=== PATIENT | male | born 1955 | race African-American/Black ===

== ENCOUNTER 2019-01-16 15:19 | Emergency (ER) | payer MEDICARE, MEDICAID ==
[~2019-01-16] VITALS: Ht 182.9 cm; Wt 90.7 kg
--- NOTE | 2019-01-16 15:36 | PHYS DOC ---
Adult General Chief Complaint Chief Complaint: HYPERTENSION HPI HPI Patient is a 63 year old male presents for evaluation of hypertension that was noted today at [facility]. Patient has psychiatric history. It was reported from the shelter but today his blood pressure was in the 200s systolically, they gave him 10 mg of lisinopril and rechecked the blood pressure and it was found to be in the 170s systolic and they sent him to the emergency room for evaluation. He has no previous history of hypertension. Patient has no complaints. States he is feeling well and has no pain. Upon arrival to the emergency room patient's blood pressure is 134/80. He denies any dizziness, headache, chest pain, or shortness of breath. Review of Systems Review of Systems Constitutional: Denies fever or chills [] Eyes: Denies change in visual acuity, redness, or eye pain [] HENT: Denies nasal congestion or sore throat [] Respiratory: Denies cough or shortness of breath [] Cardiovascular: No additional information not addressed in HPI [] GI: Denies abdominal pain, nausea, vomiting, bloody stools or diarrhea [] : Denies dysuria or hematuria [] Musculoskeletal: Denies back pain or joint pain [] Integument: Denies rash or skin lesions [] Neurologic: Denies headache, focal weakness or sensory changes [] Endocrine: Denies polyuria or polydipsia [] All other systems were reviewed and found to be within normal limits, except as documented in this note. Allergies Allergies Allergies Coded Allergies Type Severity Reaction Last Updated Verified No Known Drug Allergies 01/16/19 No Physical Exam Physical Exam Constitutional: Well developed, well nourished, no acute distress, non-toxic appearance. [] HENT: Normocephalic, atraumatic, bilateral external ears normal, oropharynx moist, no oral exudates, nose normal. [] Eyes: PERRLA, EOMI, conjunctiva normal, no discharge. [] Cardiovascular:Heart rate regular rhythm, no murmur [] Lungs & Thorax: Bilateral breath sounds clear to auscultation [] Skin: Warm, dry, no erythema, no rash. [] Extremities: No tenderness, no cyanosis, no clubbing, ROM intact, no edema. [] Neurologic: Alert and oriented X 3, normal motor function, normal sensory function, no focal deficits noted. [] Psychologic: Affect normal, judgement normal, mood normal. [] Current Patient Data Vital Signs Vital Signs Date Time Temp Pulse Resp B/P (MAP) Pulse Ox O2 Delivery O2 Flow Rate FiO2 01/16/19 17:05 82 17 100 01/16/19 15:19 98.3 134/94 (107) Room Air 98.3 EKG EKG [EKG at 1525, read by emergency room physician, heart rate 85, interpretation sinus rhythm, no STEMI] Radiology/Procedures Radiology/Procedures [] Course & Med Decision Making Course & Med Decision Making Pertinent Labs and Imaging studies reviewed. (See chart for details) [Vital signs stable, pressure 133/78 as reported by EMS in route, blood pressure remains 130s to 140s in emergency room, should asymptomatic, he is started on lisinopril already by the shelter where he lives, no further treatment is indicated today in emergency room. Patient has no complaints, he is stable for discharge home.] Dragon Disclaimer Dragon Disclaimer This electronic medical record was generated, in whole or in part, using a voice recognition dictation system. Departure Departure Impression: Primary Impression: Hypertension Disposition: 01 HOME, SELF-CARE Condition: STABLE Patient Instructions: Hypertension ARACELY REGALADO APRN Jan 16, 2019 15:36
--- NOTE | 2019-01-16 16:08 | EKG ---
[facility] [address] [place] [address] Test Date: 2019-01-16 Test Time: 15:25:43 Pat Name: EDMUND WAGONER Department: Room: Gender: M [employer]st: : 1955 Requested By: ARACELY REGALADO Order Number: [id number] Reading MD: Measurements Intervals [place] Rate: 84 P: 51 NH: 164 QRS: 50 QRSD: 76 T: 77 QT: 304 QTc: 361 Interpretive Statements SINUS RHYTHM NON SPECIFIC T ABNORMALITY NON SPECIFIC ST-T ABNORMALITY (ELEVATION) BORDERLINE ECG No previous ECG available for comparison
[2019-01-16 17:05] VITALS: BP 146/83
== END 2019-01-16 18:30 | disposition home or self-care (01) ==
LOC: ER 15:19
DX: I10 Essential (primary) hypertension (principal)
CPT/HCPCS: 93005; 99283

== ENCOUNTER 2020-07-22 15:50 | Emergency (ER) | payer MEDICARE, MEDICAID ==
[~2020-07-22] VITALS: Ht 185.4 cm; Wt 86.4 kg
--- NOTE | 2020-07-22 16:58 | ED.ADGEN ---
Past Medical History Past Medical History: Anxiety, Schizophrenia, Other Additional Past Medical Histor: ALCOHOL DEPENDENCE. Past Surgical History: No Surgical History Smoking Status: Never Smoker Alcohol Use: Sober Drug Use: None General Adult EDM: Chief Complaint: MECHANICAL FALL HPI: HPI: Patient is 64-year-old male with past medical history of schizophrenia who presents to the emergency room after being found laying partially out of bed. Patient is typically bedbound. He was found with his head on the floor. They also noticed some bruising to his ribs. They sent him here with request for imaging of his head and ribs. Patient is altered at baseline and is unable to provide any kind of history. He has no complaints. Review of Systems: Review of Systems: Complete ROS is negative unless otherwise documented in HPI Allergies: Allergies: Allergies Coded Allergies Type Severity Reaction Last Updated Verified No Known Drug Allergies 01/16/19 No Physical Exam: PE: General: Awake, alert, NAD. Well Nourished, well hydrated. Cooperative HEENT: Atraumatic, EOMI, PERRL, airway patent, moist oral mucosa Neck: Supple, trachea midline Respiratory: CTA bilaterally, normal effort, no wheezing/crackles CV: RRR, no murmur, cap refill <2 GI: Soft, nondistended, nontender, no masses MSK: No obvious deformities Skin: Warm, dry, intact Neuro: A&O x0, speech NL, sensory and motor grossly intact, no focal deficits Current Patient Data: Vital Signs: Vital Signs Date Time Temp Pulse Resp B/P (MAP) Pulse Ox O2 Delivery O2 Flow Rate FiO2 07/22/20 15:55 97.2 91 115/79 (91) 98 Room Air 97.2 EKG: EKG: [] Heart Score: Risk Factors: Risk Factors: DM, Current or recent (<one month) smoker, HTN, HLP, family history of CAD, obesity. Risk Scores: Score 0 - 3: 2.5% MACE over next 6 weeks - Discharge Home Score 4 - 6: 20.3% MACE over next 6 weeks - Admit for Clinical Observation Score 7 - 10: 72.7% MACE over next 6 weeks - Early Invasive Strategies Radiology/Procedures: Radiology/Procedures: [] Course & Med Decision Making: Course & Med Decision Making Pertinent Labs and Imaging studies reviewed. (See chart for details) Patient is 64-year-old male who presents to the emergency room after a possible fall out of bed. CT head, cervical spine, ribs will be ordered to evaluate for traumatic injury as patient is unable to provide us any history. CT negative for acute traumatic injury. CT chest does show possible pneumonia and patient was started on Levaquin. He does not appear to be septic at this time. Patient's test results and vitals while in the ED were fully reviewed and discussed with the patient. Patient is stable and at this time does not need admission to the hospital. We have discussed strict return precautions and the importance of following up with their Primary Care Physician. Patient stated understanding and was given an opportunity to ask any questions. Patient is in agreement with plan. Dragon Disclaimer: Dragon Disclaimer: This electronic medical record was generated, in whole or in part, using a voice recognition dictation system. Departure Departure Impression: Primary Impression: Fall Additional Impression: Pneumonia Disposition: 01 DC HOME SELF CARE/HOMELESS Condition: STABLE Referrals: LISA CASTAÑEDA MD (PCP) Patient Instructions: Fall Prevention in Hospitals, Pneumonia, Adult Scripts Levofloxacin (LEVOFLOXACIN) 500 Mg Tablet 1 TAB PO DAILY, #7 TAB Prov: CHANEL LUGO MD 07/22/20 Problem Qualifiers CHANEL LUGO MD Jul 22, 2020 16:58
--- NOTE | 2020-07-22 17:05 | RAD ---
EXAM: Head hand cervical spine CT without contrast. HISTORY: Fall. TECHNIQUE: Computed tomographic images of the head and cervical spine were obtained without contrast. *One or more of the following individualized dose reduction techniques were utilized for this examina tion: 1. Automated exposure control. 2. Adjustment of the mA and/or kV according to patient size. 3. Use of iterative reconstruction technique. COMPARISON: None. FINDINGS: Head: There is no hemorrhage. There is no mass effect or midline shift. There is no hydrocephalus. Th ere is cerebral volume loss. There are areas of hypodensity within the cerebral white matter due to c hronic small vessel disease. There is a small chronic infarct within the left basal ganglia. There is no calvarial lesion. The visualized orbits, paranasal sinuses mastoid air cells are unremarkable. Cervical spine: There is cervical kyphosis. There is minimal anterolisthesis of C3 on C4. There is se zbigniew degenerative endplate remodeling with disc space narrowing and osteophytosis at multiple levels. There are are multiple endplate Schmorl's nodes. There is multilevel facet arthropathy. No displaced fracture is seen. At C2-C3, there is a disc bulge and endplate remodeling. There is severe right and mild left facet ar thropathy. There is moderate right and mild left foraminal stenosis. At C3-C4, there is a disc bulge and endplate osteophytosis. There is mild bilateral facet arthropathy . There is left greater than right uncovertebral arthropathy. There is mild right and severe left for aminal stenosis. At C4-C5, there is a disc bulge and endplate osteophytosis. There is mild right and moderate left fac et arthropathy. There is left uncovertebral arthropathy. There is severe left foraminal stenosis. The re is mild central canal stenosis. At C5-C6, there is a disc bulge and endplate osteophytosis. There is moderate left facet arthropathy. There is bilateral uncovertebral arthropathy. There is moderate bilateral foraminal stenosis. There is mild central canal stenosis. At C6-C7, there is a disc bulge and endplate osteophytosis. There is left greater than right uncovert ebral arthropathy. There is moderate left foraminal stenosis. There is mild central canal stenosis. IMPRESSION: 1. No evidence of acute intracranial or cervical spine trauma. 2. Multilevel degenerative change throughout the cervical spine, resulting in significant stenosis at the aforementioned levels. 3. Bilateral cerebral white matter changes, likely due to chronic small vessel disease. 4. Cerebral volume loss. 5. Suspected small chronic infarct within the left basal ganglia. Electronically signed by: Myra Farley MD (07/22/2020 5:03 PM) [facility]
--- NOTE | 2020-07-22 17:06 | RAD ---
Exam: CT of chest without contrast INDICATION: Fall, closed head injury, chest wall pain TECHNIQUE: Sequential axial images through the chest obtained without IV contrast. Sagittal and coron al reformatted images were reconstructed from the axial data and reviewed. Comparisons: None FINDINGS: Visualized portions of the thyroid are unremarkable. No enlarged mediastinal lymph nodes are identifi ed. Heart size is normal. No pericardial effusion. Thoracic aorta has normal course and caliber. Pulmonar y artery is not enlarged. Airways are patent. There is consolidative changes at the left lower lobe with strandy opacities at t he right lung base. There is a small left pleural effusion. No suspicious osseous lesions or acute fractures. IMPRESSION: 1. No sequela of acute traumatic injury identified within the chest. 2. Consolidative changes noted in the left lower lobe, may be infectious or inflammatory in etiology . Exposure: One or more of the following in the visualized dose reduction techniques were utilized for this examination: 1. Automated exposure control 2. Adjustment of the MA and/or KV according to patient size 3. Use of iterative of reconstructive technique Electronically signed by: Bmial De Souza MD (07/22/2020 5:04 PM) [facility]
[2020-07-22] MEDS ORDERED: LEVO500T8 PO (17:17)
[2020-07-22 21:00] VITALS: BP 115/76
== END 2020-07-22 21:25 | disposition home or self-care (01) ==
LOC: ER 15:50
DX: S30.1XXA Contusion of abdominal wall, initial encounter (principal); J18.9 Pneumonia, unspecified organism; F41.9 Anxiety disorder, unspecified; F20.9 Schizophrenia, unspecified; F10.10 Alcohol abuse, uncomplicated; W18.39XA Other fall on same level, initial encounter; Y93.89 Activity, other specified; Y92.89 Other specified places as the place of occurrence of the external cause; Y99.8 Other external cause status
CPT/HCPCS: 70450; 71250; 72125; 99285

== ENCOUNTER 2020-07-29 13:22 | Inpatient (IN) | payer MEDICARE, MEDICAID ==
[~2020-07-29] VITALS: Ht 190.5 cm; Wt 91.5 kg
[~2020-07-29 13:22] MED LIST: LEVO500T8 PO
--- NOTE | 2020-07-29 13:39 | RAD ---
EXAM: Head CT without contrast. HISTORY: Cerebral infarction. TECHNIQUE: Computed tomographic images of the head were obtained without contrast. *One or more of the following individualized dose reduction techniques were utilized for this examina tion: 1. Automated exposure control. 2. Adjustment of the mA and/or kV according to patient size. 3. Use of iterative reconstruction technique. COMPARISON: None. FINDINGS: There is no acute or subacute extra-axial or intraparenchymal hemorrhage. There is no mass effect or midline shift. There is no hydrocephalus. There are areas of decreased attenuation within the cerebral white matter, nonspecific and likely rel ated to chronic small vessel disease. There is cerebral volume loss. There is a suspected small chron ic lacunar infarct within the left basal ganglia. The visualized portions of the orbits, paranasal sinuses and mastoid air cells are unremarkable. No s uspicious calvarial lesion is seen. IMPRESSION: 1. No acute intracranial finding. Note is made that MRI is more sensitive for acute infarction. 2. Bilateral cerebral white matter changes, likely due to chronic small vessel disease. 3. Suspected small chronic infarct within the left basal ganglia. 4. Cerebral volume loss. Findings were discussed with Dr. Vivas in the ED at 1330 hours on 07/29/2020 FOR INTERNAL CODING PURPOSES RESULT CODE: (C) Electronically signed by: Myra Farley MD (07/29/2020 1:35 PM) [id number]
[2020-07-29] MEDS ORDERED: IOHEXOL 300 MG/ML 100ML VIAL. IV ONE (13:45)
[2020-07-29] MEDS ORDERED: IV NORMAL SALINE 1000ML BAG 1,000 ML IV ONE ×4 (13:45→16:15)
[2020-07-29] MEDS ORDERED: CONTRAST GIVEN. MC PRN (13:45)
--- NOTE | 2020-07-29 13:52 | RAD ---
EXAM: Chest, single view. HISTORY: Cerebral infarction. COMPARISON: None. FINDINGS: A frontal view of the chest is obtained. There is no infiltrate, pleural effusion or pneumo thorax. The heart is normal in size. There are calcified granulomas. IMPRESSION: No acute pulmonary finding. Electronically signed by: Myra Farley MD (07/29/2020 1:49 PM) [id number]
--- NOTE | 2020-07-29 14:08 | PHYS DOC ---
Past Medical History Past Medical History: Anxiety, Schizophrenia, Other Additional Past Medical Histor: ALCOHOL DEPENDENCE. Past Surgical History: No Surgical History Smoking Status: Never Smoker Alcohol Use: Sober Drug Use: None General Adult EDM: Chief Complaint: SYNCOPE/PRESYNCOPE HPI: HPI: This is a pleasant 64-year-old male presenting to the emergency department today initially was activated as a stroke activation. EMS was called to the scene because the patient suddenly lost consciousness and became "unresponsive". On EMS arrival the patient had a low blood pressure and became more arousable after giving IV fluids. On arrival the patient went straight to head CT as a stroke activation. He has been being treated for pneumonia with Levaquin. He has not had any slurred speech. There were no focal deficits on EMS examination. On arrival the patient does not have any focal neurologic deficits. Onset today. Last known well was 12:40 PM. Review of systems is negative for chest pain shortness of breath abdominal pain vomiting fevers. He has not had any facial drooping unilateral arm or leg weakness. He has not had diplopia. He has not feeling vertiginous. All other review of systems negative. ED course: 64-year-old male presenting to the emergency department today initially as a stroke activation. On arrival however the patient's neurologic exam shows good strength in both upper extremities and equal strength in his lower extremities although both lower extremities do drift bilaterally. Initially on arrival we had very significant discrepancy in the patient's blood pressures between right and left greater than 80 mmHg. Because of this we were concerned for dissection. Furthermore the patient did not have a focal neurologic deficit. I spoke with Dr. Cruz our consulting stroke neurologist who recommends not giving TPA. We did discuss the possibility of pursuing an urgent MRI however the more the patient's condition became clear it became more clear that the patient was not stable enough to go to MRI because of his hypotension a nd concern for septic shock. Head CT obtained showed no acute intracranial findings. Patient has a chronic infarct in the left basal ganglia. CT angiogram shows some atherosclerotic plaquing less than 50% stenosis without severe stenosis or large vessel occlusion. There is a small left pleural effusion with an left lower lobe pneumonia. Chest x-ray shows pneumonia. After more information was available he became more probable that the patient's presentation was septic shock from pneumonia. Patient was given IV fluids on arrival and started on broad-spectrum antibiotics. I spoke with the patient and got verbal consent to do a central line. Central line performed. Chest x-ray shows line in place without pneumothorax. Norepinephrine IV fluids and broad- spectrum antibiotics initiated for the patient. As the patient was treated in the emergency department his mental status improved substantially he was more alert he continues not to have a focal neurologic deficit. We will admit the patient to the hospitalist into the intensive care unit for further treatment and care. Lactic acid was elevated. White blood cell count elevated. Troponin within normal limits. Heart Score: Risk Factors: Risk Factors: DM, Current or recent (<one month) smoker, HTN, HLP, family history of CAD, obesity. Risk Scores: Score 0 - 3: 2.5% MACE over next 6 weeks - Discharge Home Score 4 - 6: 20.3% MACE over next 6 weeks - Admit for Clinical Observation Score 7 - 10: 72.7% MACE over next 6 weeks - Early Invasive Strategies Current Medications: Current Medications Medications (Trade) Dose Ordered Sig/Jeffrey Start Time Stop Time Status Last Admin Dose Admin Info (CONTRAST GIVEN -- Rx MONITORING) 1 each PRN DAILY PRN 07/29/20 13:45 07/31/20 13:44 Iohexol (Omnipaque 300 Mg/ml) 75 ml 1X ONCE 07/29/20 13:45 07/29/20 13:46 DC Sodium Chloride 1,000 ml @ 1,000 mls/hr 1X ONCE 07/29/20 13:45 07/29/20 14:44 Allergies: Allergies: Allergies Coded Allergies Type Severity Reaction Last Updated Verified No Known Drug Allergies 01/16/19 No Physical Exam: PE: Constitutional: Patient opens eyes to voice. Not in acute distress. Normal work of breathing. HENT: Normocephalic, atraumatic, bilateral external ears normal, oropharynx moist, no oral exudates, nose normal. [] Eyes: PERRLA, EOMI, conjunctiva normal, no discharge. [] Neck: Normal range of motion, no tenderness, supple, no stridor. [] Cardiovascular: Tachycardic heart rate with a regular rhythm. No murmur. Lungs & Thorax: Rhonchi on the left. Right lung sounds are clear. Abdomen: Bowel sounds normal, soft, no tenderness, no masses, no pulsatile masses. [] Skin: Warm, dry, no erythema, no rash. [] Back: No tenderness, no CVA tenderness. [] Extremities: No tenderness, no cyanosis, no clubbing, ROM intact, no edema. [] Neurologic: Mental status: Awake confused and alert x3. Speech is not slurred. Cranial nerves: Extraocular movements intact, eyebrows susan bilaterally, smile symmetric, uvula elevation nl, shoulder shrug intact bilaterally, tongue protrusion normal Sensation: equal and normal in all extremities Strength: 5/5 in upper extremities bilaterally. 4 out of 5 strength in the lower extremities bilaterally with equal drift. Normal [id number] test bilaterally. Psychologic: Affect normal, judgement normal, mood normal. [] EKG: EKG: [] Radiology/Procedures: Radiology/Procedures: [] Course & Med Decision Making: Course & Med Decision Making Pertinent Labs and Imaging studies reviewed. (See chart for details) 64-year-old stroke activation. Head CT unremarkable. Neurologic exam: Patient is able to lift both upper extremities without drift. He is able to lift both legs off the bed. Both legs do drift. Pupils are equal round and reactive. Cranial nerve exam is unremarkable. Normal sensation bilaterally in all 4 extremities. I spoke to Dr. Cruz our stroke neurologist on-call. Given the lack of focality in addition with the patient's blood pressure being significantly different in both extremities, 170 sys in the right arm and then 85 systolic on the left. There was concern for possible dissection. Given the possibility of there being a dissection and a lack of focality of the patient's neurologic function Dr. Crowley felt the patient symptoms to be more global and possibly related to the patient's blood pressure. He asked that we get an MRI. He recommended not giving TPA. The time is now 2:08 PM. After further clarification and the patient's blood pressure staying low and concern for septic shock I felt the patient was not clinically stable to go to MRI at the time. Patient was treated for septic shock in the emergency department rather. We will admit to the ICU. MRI will have to take place tomorrow. Gifty Disclaimer: Gifty Disclaimer: This electronic medical record was generated, in whole or in part, using a voice recognition dictation system. Departure Departure Impression: Primary Impression: Septic shock Additional Impression: Pneumonia Disposition: ADMITTED INPT THIS HOSP Admitting Physician: CLEMENT Condition: CRITICAL Referrals: LISA CASTAÑEDA MD (PCP) Central Line Placement Proc Central Line Indication: Vascular access Consent: The patient provided consent for this procedure. Procedure: The patient was positioned appropriately and the skin over the right IJ was prepped and draped in a sterile fashion. Local anesthesia was used. Ultrasound guidance utilized. A large bore needle was used to identify the vein. A guide wire was then inserted into the vein through the needle. A triple lumen catheter was then inserted into the vessel over the guide wire using the Seldinger technique. All ports showed good, free flowing blood return and were flushed with saline solution. The catheter was then securely fastened to the skin with sutures and covered with a sterile dressing. A post procedure X-ray was ordered. without any signs of complications. The patient tolerated the procedure well. Complications: none. Critical Care Time Critical care time spent was 55 minutes exclusive of procedures. Time was spent evaluating the patient, ordering the administration of medications, reevaluating the patient, discussing with the admitting provider and documenting. FELIX RODRIGUEZ MD Jul 29, 2020 14:08
[2020-07-29 14:12] LABS: CALCIUM 9.1 mg/dL (8.5-10.1); GFR 40.9; POTASSIUM 3.8 mmol/L (3.5-5.1)
[2020-07-29] MEDS ORDERED: NOREPINEPHRINE VIAL 8 MG in IV DEXTROSE 5% 250 ML IV ONE (14:15)
[2020-07-29] MEDS ORDERED: PIP/TAZO PER PHARMACY MC PRN (14:30)
[2020-07-29] MEDS ORDERED: PIPERACILLIN/TAZOBACTAM 3.375 GM in IV NORMAL SALINE 50ML 50 ML IV ONE (14:30)
--- NOTE | 2020-07-29 14:32 | RAD ---
ADDENDUM #1 Addendum: This report is linked to a CT of the chest, abdomen and pelvis performed on the same date. The CT findings for the the chest, abdomen and pelvis will be included on this addendum. EXAM: Chest, abdomen and pelvis CT with intravenous contrast. HISTORY: Left-sided weakness. TECHNIQUE: Computed tomographic images of the chest, abdomen and pelvis were obtained with a previous contrast. *One or more of the following individualized dose reduction techniques were utilized for this examina tion: 1. Automated exposure control. 2. Adjustment of the mA and/or kV according to patient size. 3. Use of iterative reconstruction technique. FINDINGS: Chest: There are small left greater than right pleural effusions. There is partially consol idated left lower lobe pneumonia and there is right lower lobe interstitial infiltrate. The heart is normal in size. There is no pneumothorax. The aorta is normal in caliber. There are prominent mediast inal and hilar lymph nodes which are likely reactive. There are few calcified granulomas. There is a tiny hiatal hernia. There is gynecomastia. There is no acute or suspicious osseous finding. Abdomen and pelvis: No hepatic lesion is seen. The gallbladder, pancreas, spleen and adrenal glands a re unremarkable. There is a 2.8 cm simple cyst within the upper pole the left kidney. The urinary estrella dder is distended. There is no appendicitis. There is a large amount of formed stool throughout the c olon and rectal vault. The aorta is normal in caliber. There is no lymphadenopathy. There is no suspi cious or acute osseous finding. There is degenerative change primarily the lumbosacral junction. IMPRESSION: 1. Partially consolidated left lower lobe pneumonia and right lower lobe interstitial infiltrate supe rimposed on small left greater the right pleural effusions. 2. Mediastinal and hilar lymphadenopathy, likely reactive given the aforementioned findings. 3. Large amount of stool throughout the colon and rectal vault. Correlate for constipation. 4. Simple left renal cyst. Follow up is not routinely recommended for simple cysts. 5. Tiny hiatal hernia. 6. Distended urinary bladder. Electronically signed by: Myra Farley MD (07/29/2020 5:34 PM) [id number] ORIGINAL REPORT EXAM: CT angiogram of the head and neck with intravenous contrast. HISTORY: Left-sided weakness. Stroke. TECHNIQUE: Computed tomographic images of the head and neck were obtained following the intravenous a dministration of contrast. Three-dimensional maximum intensity projection images were obtained. *One or more of the following individualized dose reduction techniques were utilized for this examina tion: 1. Automated exposure control. 2. Adjustment of the mA and/or kV according to patient size. 3. Use of iterative reconstruction technique. COMPARISON: Head CT obtained on the same date. FINDINGS: There is a normal caliber aortic arch. No aortic dissection is seen. There is a common orig in of the right innominate and left common carotid arteries, a normal aortic arch branching variant. The origins of the arch great vessels are widely patent. There is intimal thickening involving the bi lateral common carotid arteries. There is partially calcified atherosclerotic plaque involving the ca rotid bulbs and origins of the internal carotid arteries, with less than 50 percent stenosis. There i s also partially calcified atherosclerotic plaque involving the supraclinoid internal carotid arterie s, with less than 50 percent percent stenosis. No hemodynamically significant stenosis is seen involv ing the cerebral arteries. The left posterior communicating arteries likely developmental or absent. The basilar artery is widely patent. The distal left vertebral artery is hypoplastic, a normal varian t. There is no aneurysm. There is no suspicious enhancing lesion. There is cerebral volume loss. There are cerebral white matter changes, likely due to chronic small v essel disease. The orbits, paranasal sinuses and mastoid air cells are unremarkable. There is no lymp hadenopathy. There is a small left pleural effusion. There is partial visualization of left lower lob e pneumonia. There is no pneumothorax. There are degenerative changes throughout the cervical spine. This is associated with mild right foraminal stenosis at C2-C3, severe left foraminal stenosis at C3- C4, severe left foraminal stenosis at C4-C5, moderate left foraminal stenosis at C5-C6, and mild to m oderate left foraminal stenosis at C6-C7. IMPRESSION: 1. Mild atherosclerotic plaque involving the carotid bifurcations and supraclinoid internal carotid a rteries, with less than 50 percent stenosis. No severe stenosis or occlusion is seen involving the ne ck or intracranial arteries. 2. Bilateral cerebral white matter changes, likely due to chronic. Note is made that MRI is more sens itive for acute infarction. 3. Small left pleural effusion and left lower lobe pneumonia, partially included on the [id number] . 4. Multilevel degenerative change involving the cervical spine, resulting in stenosis as described ab ove. PQRS Compliance Statement - Stenosis calculations for CT, MR and conventional angiography are based u galilea measurement of the distal ICA diameter in accordance with the NASCET methodology. Stenosis calcu lations for carotid ultrasound studies are derived from validated velocity criteria which are known t o correlate with the NASCET methodology. Electronically signed by: Myra Farley MD (07/29/2020 2:28 PM) [id number]
[2020-07-29 14:45] LABS: BASO # 0.1 x10^3/uL (0.0-0.2); BASO % 0 % (0-3); EOS % 0 % (0-3); HEMATOCRIT 27.6 % (39.0-53.0); HEMOGLOBIN 8.9 g/dL (13.0-17.5); LYMPH # 2.1 x10^3/uL (1.0-4.8); LYMPH % 12 % (24-48); MEAN CORPUSCULAR HEMOGLOBIN 29 pg (25-35); MEAN CORPUSCULAR HGB CONC 32 g/dL (31-37); MEAN CORPUSCULAR VOLUME 90 fL (79-100); MONO # 0.8 x10^3/uL (0.0-1.1); MONO % 5 % (0-9); NEUT # 14.2 x10^3/uL (1.8-7.7); NEUT % 83 % (31-73); PLATELET COUNT 171 x10^3/uL (140-400); RED BLOOD COUNT 3.07 x10^6/uL (4.30-5.70); RED CELL DISTRIBUTION WIDTH 15.2 % (11.5-14.5); WHITE BLOOD COUNT 17.1 x10^3/uL (4.0-11.0)
[2020-07-29] MEDS ORDERED: VANCOMYCIN PER PHARMACY MC PRN ×2 (15:00→18:45)
[2020-07-29] MEDS ORDERED: 0.9 % SOD CHL for STERILE FIELD 10 ML DISP.SYRIN. ONE (15:08)
--- NOTE | 2020-07-29 15:29 | EKG ---
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
[2020-07-29] MEDS ORDERED: VANCOMYCIN 2 GM in IV NORMAL SALINE 500ML BAG 500 ML IV ONE (15:30)
--- NOTE | 2020-07-29 16:34 | RAD ---
EXAM: Chest, single view. HISTORY: Central line placement. COMPARISON: CT dated 07/29/2020. FINDINGS: A frontal view of the chest obtained. There is small left greater than right pleural effusi ons and there is left greater than right lower lobe interstitial infiltrate. There is an enlarged car diac silhouette. There is a right internal jugular catheter with the tip in the superior vena cava. T here is no pneumothorax. There are calcified granulomas. There are prominent air-filled loops of david l within the upper abdomen. IMPRESSION: 1. Small left greater than right pleural effusions with left greater than right lower lobe infiltrate . 2. Prominent cardiac silhouette. 3. Right internal jugular catheter with the tip in the superior vena cava. There is no pneumothorax. Electronically signed by: Myra Farley MD (07/29/2020 4:20 PM) [id number]
[2020-07-29] MEDS ORDERED: IV NORMAL SALINE 1000ML BAG 1,000 ML IV SCH (16:45)
--- NOTE | 2020-07-29 16:46 | PDOC1 ---
History and Physical Date of Admission Date of Admission DATE: 07/29/20 TIME: 16:46 Identification/Chief Complaint Chief Complaint Unresponsive Source Source: Caregiver, Chart review History of Present Illness History of Present Illness Mr Gustafson is a 64yo M w/ PMHx schizophrenia, h/o heavy ETOH abuse, depression with anxiety, HTN, constipation who presents from his [facility] for unresponsiveness. EMS was contacted as the patient was found unresponsive and shaking 20 minutes prior to their call. He believes its August 2049 does know his name and birthdate. Due to his lack of appropriate response and tremors a code stroke was called and he underwent CT head and CT neck which were negative for acute pathology. Suspected chronic left basal ganglia infarct was noted. CTA negative for occlusion. Notably with temperature 95.1 F rectal. BP 74/47 heart rate 154. In ED he was not responsive to 2 fluid boluses, was started on empiric antibiotics and right IJ CVC was placed for pressor support. After his blood pressure improved he became more responsive and was moving all 4 extremities able to carry on a conversation and follow commands. He complains of weakness and tremors he cannot stop. He notes no loss of appetite no abdominal complaints. He does no chills no fevers. Some slight shortness of breath. No chest pain. He does have problems with urinary retention notes he is trying to urinate when he is unable to. He notes he is relatively bedbound Chest radiograph with no acute abnormality. EKG rate in the 140s possibly SVT, patient is on Levophed at time of EKG. WBC 17.1, Hb 8.9, platelets 171, NA 136, K3.8, BUN 20, CR 2, glucose 161, INR 1.1, lactic acid 5.6, troponin 0 Admitted to ICU for further care. Past Medical History Cardiovascular: HTN CENTRAL NERVOUS SYSTEM: TIA Psych: Addictions (ETOH), Schizophrenia Past Surgical History Past Surgical History: No pertinent history Family History Family History: Family History Unknown Social History Smoke: <1 pack per day ALCOHOL: heavy Drugs: None Current Medications Current Medications Current Medications Iohexol (Omnipaque 300 Mg/ml) 75 ml 1X ONCE IV Last administered on 07/29/20at 14:08; Start 07/29/20 at 13:45; Stop 07/29/20 at 13:46; Status DC Info (CONTRAST GIVEN -- Rx MONITORING) 1 each PRN DAILY PRN MC SEE COMMENTS; Start 07/29/20 at 13:45; Stop 07/31/20 at 13:44 Sodium Chloride 1,000 ml @ 1,000 mls/hr 1X ONCE IV Last administered on 07/29/20at 13:53; Start 07/29/20 at 13:45; Stop 07/29/20 at 14:44; Status DC Norepinephrine Bitartrate 8 mg/ Dextrose 258 ml @ 15.48 mls/ hr 1X ONCE IV Last administered on 07/29/20at 14:31; Start 07/29/20 at 14:15; Stop 07/30/20 at 06:54 Piperacillin Sod/ Tazobactam Sod (Zosyn Per Pharmacy) 1 each PRN DAILY PRN MC SEE COMMENTS; Start 07/29/20 at 14:30; Status UNV Piperacillin Sod/ Tazobactam Sod 3.375 gm/Sodium Chloride 50 ml @ 100 mls/hr 1X ONCE IV Last administered on 07/29/20at 14:39; Start 07/29/20 at 14:30; Stop 07/29/20 at 14:59; Status DC Vancomycin HCl (Vanco Per Pharmacy) 1 each PRN DAILY PRN MC SEE COMMENTS; Start 07/29/20 at 15:00; Status UNV Sodium Chloride 1,000 ml @ 1,000 mls/hr 1X ONCE IV Last administered on 07/29/20at 15:06; Start 07/29/20 at 15:00; Stop 07/29/20 at 15:59; Status DC Sodium Chloride 1,000 ml @ 1,000 mls/hr 1X ONCE IV ; Start 07/29/20 at 15:00; Stop 07/29/20 at 15:59; Status DC Sodium Chloride (NORMAL SALINE FLUSH for STERILE FIELD) 10 ml STK-MED ONCE .ROUTE ; Start 07/29/20 at 15:08; Stop 07/29/20 at 15:08; Status DC Vancomycin HCl 2 gm/Sodium Chloride 500 ml @ 250 mls/hr 1X ONCE IV Last administered on 07/29/20at 16:03; Start 07/29/20 at 15:30; Stop 07/29/20 at 17:29 Sodium Chloride 1,000 ml @ 1,000 mls/hr 1X ONCE IV ; Start 07/29/20 at 16:15; Stop 07/29/20 at 17:14 Sodium Chloride 1,000 ml @ 100 mls/hr Q10H IV ; Start 07/29/20 at 16:45; Stop 07/29/20 at 20:44 Active Scripts Active Levofloxacin 500 Mg Tablet 1 Tab PO DAILY Allergies Allergies: Coded Allergies: No Known Drug Allergies (Unverified , 01/16/19) ROS General: YES: Chills, Fatigue, Malaise; No: Night Sweats, Appetite, Other PSYCHOLOGICAL ROS: YES: Anxiety, Disorientation; No: Behavioral Disorder, Concentration difficultie, Decreased libido, Depression, Hallucinations, Hostility, Irritablity, Memory difficulties, Mood Swings, Obsessive thoughts, Physical abuse, Sexual abuse, Sleep disturbances, Suicidal ideation, Other Eyes: No Blurry vision, No Decreased vision, No Double vision, No Dry eyes, No Excessive tearing, No Eye Pain, No Itchy Eyes, No Loss of vision, No Photophobia, No Scotomata, No Uses contacts, No Uses glasses, No Other HEENT: No: Heacaches, Visual Changes, Hearing change, Nasal congestion, Nasal discharge, Oral lesions, Sinus pain, Sore Throat, Epistaxis, Sneezing, Snoring, Tinnitus, Vertigo, Vocal changes, Other ALLERGY AND IMMUNOLOGY: No: Hives, Insect Bite Sensitivity, Itchy/Watery Eyes, Nasal Congestion, Post Nasal Drip, Seasonal Allergies, Other Hematological and Lymphatic: No: Bleeding Problems, Blood Clots, Blood Transfusions, Brusing, Night Sweats, Pallor, Swollen Lymph Nodes, Other ENDOCRINE: No: Breast Changes, Galactorrhea, Hair Pattern Changes, Hot Flashes, Malaise/lethargy, Mood Swings, Palpitations, Polydipsia/polyuria, Skin Changes, Temperature Intolerance, Unexpected Weight Changes, Other Breast: No New/Changing Breast Lumps, No Nipple changes, No Nipple discharge, No Other Respiratory: No: Cough, Hemoptysis, Orthopnea, Pleuritic Pain, Shortness of breath, SOB with excertion, Sputum Changes, Stridor, Tachypnea, Wheezing, Other Cardiovascular: No Chest Pain, No Palpitations, No Orthopnea, No Paroxysmal Noc. Dyspnea, No Edema, No Lt Headedness, No Other Gastrointestinal: No Nausea, No Vomiting, No Abdominal Pain, No Diarrhea, No Constipation, No Melena, No Hematochezia, No Other Genitourinary: No Dysuria, No Frequency, No Incontinence, No Hematuria, No Retention, No Discharge, No Urgency, No Pain, No Flank Pain, No Other, No , No , No , No , No , No , No Musculoskeletal: No Gait Disturbance, No Joint Pain, No Joint Stiffness, No Joint Swelling, No Muscle Pain, No Muscular Weakness, No Pain In:, No Swelling In:, No Other Neurological: No Behavorial Changes, No Bowel/Bladder ControlChng, No Confusion, No Dizziness, No Gait Disturbance, No Headaches, No Impaired Coord/balance, No Memory Loss, No Numbness/Tingling, No Seizures, No Speech Pr oblems, No Tremors, No Visual Changes, No Weakness, No Other Skin: No Dry Skin, No Eczema, No Hair Changes, No Lumps, No Mole Changes, No Mottling, No Nail Changes, No Pruritus, No Rash, No Skin Lesion Changes, No Other, No Acne Physical Exam General: Alert, Cooperative, moderate distress HEENT: Atraumatic, PERRLA, EOMI, Mucous membr. moist/pink Lungs: Clear to auscultation, Normal air movement Heart: S1S2, RRR, no thrills, no rubs, no gallops, no murmurs Abdomen: Normal bowel sounds, Soft, No tenderness, No hepatosplenomegaly, No masses Rectal Exam: other (large 4x8 gluteal ulcer) Extremities: No clubbing, No cyanosis, No edema, Normal pulses, No tenderness/swelling Skin: Other (Gluteal ulcer) Neuro: Normal tone, Sensation intact, Cranial nerves 3-12 NL, Reflexes 2+, Other (4/5 strength bilateral LE) Psych/Mental Status: Other (Confused) Vitals Vitals Vital Signs Date Time Temp Pulse Resp B/P (MAP) Pulse Ox O2 Delivery O2 Flow Rate FiO2 07/29/20 14:29 138 88/54 (65) 100 Room Air 07/29/20 14:24 4.0 07/29/20 13:25 95.1 95.1 Labs Labs Laboratory Tests Test 07/29/20 13:49 07/29/20 14:10 07/29/20 14:20 Prothrombin Time 14.0 SEC (11.7-14.0) Prothromb Time International Ratio 1.1 (0.8-1.1) Activated Partial Thromboplast Time 27 SEC (24-38) Sodium Level 136 mmol/L (136-145) Potassium Level 3.8 mmol/L (3.5-5.1) Chloride Level 99 mmol/L (98-107) Carbon Dioxide Level 25 mmol/L (21-32) Anion Gap 12 (6-14) Blood Urea Nitrogen 20 mg/dL (8-26) Creatinine 2.0 mg/dL (0.7-1.3) Estimated GFR (Cockcroft-Gault) 40.9 Glucose Level 161 mg/dL (70-99) Calcium Level 9.1 mg/dL (8.5-10.1) Troponin I Quantitative < 0.017 ng/mL (0.000-0.055) Lactic Acid Level 5.6 mmol/L (0.4-2.0) White Blood Count 17.1 x10^3/uL (4.0-11.0) Red Blood Count 3.07 x10^6/uL (4.30-5.70) Hemoglobin 8.9 g/dL (13.0-17.5) Hematocrit 27.6 % (39.0-53.0) Mean Corpuscular Volume 90 fL (79-100) Mean Corpuscular Hemoglobin 29 pg (25-35) Mean Corpuscular Hemoglobin Concent 32 g/dL (31-37) Red Cell Distribution Width 15.2 % (11.5-14.5) Platelet Count 171 x10^3/uL (140-400) Neutrophils (%) (Auto) 83 % (31-73) Lymphocytes (%) (Auto) 12 % (24-48) Monocytes (%) (Auto) 5 % (0-9) Eosinophils (%) (Auto) 0 % (0-3) Basophils (%) (Auto) 0 % (0-3) Neutrophils # (Auto) 14.2 x10^3/uL (1.8-7.7) Lymphocytes # (Auto) 2.1 x10^3/uL (1.0-4.8) Monocytes # (Auto) 0.8 x10^3/uL (0.0-1.1) Eosinophils # (Auto) 0.0 x10^3/uL (0.0-0.7) Basophils # (Auto) 0.1 x10^3/uL (0.0-0.2) Laboratory Tests Test 07/29/20 13:49 07/29/20 14:10 07/29/20 14:20 Prothrombin Time 14.0 SEC (11.7-14.0) Prothromb Time International Ratio 1.1 (0.8-1.1) Activated Partial Thromboplast Time 27 SEC (24-38) Sodium Level 136 mmol/L (136-145) Potassium Level 3.8 mmol/L (3.5-5.1) Chloride Level 99 mmol/L (98-107) Carbon Dioxide Level 25 mmol/L (21-32) Anion Gap 12 (6-14) Blood Urea Nitrogen 20 mg/dL (8-26) Creatinine 2.0 mg/dL (0.7-1.3) Estimated GFR (Cockcroft-Gault) 40.9 Glucose Level 161 mg/dL (70-99) Calcium Level 9.1 mg/dL (8.5-10.1) Troponin I Quantitative < 0.017 ng/mL (0.000-0.055) Lactic Acid Level 5.6 mmol/L (0.4-2.0) White Blood Count 17.1 x10^3/uL (4.0-11.0) Red Blood Count 3.07 x10^6/uL (4.30-5.70) Hemoglobin 8.9 g/dL (13.0-17.5) Hematocrit 27.6 % (39.0-53.0) Mean Corpuscular Volume 90 fL (79-100) Mean Corpuscular Hemoglobin 29 pg (25-35) Mean Corpuscular Hemoglobin Concent 32 g/dL (31-37) Red Cell Distribution Width 15.2 % (11.5-14.5) Platelet Count 171 x10^3/uL (140-400) Neutrophils (%) (Auto) 83 % (31-73) Lymphocytes (%) (Auto) 12 % (24-48) Monocytes (%) (Auto) 5 % (0-9) Eosinophils (%) (Auto) 0 % (0-3) Basophils (%) (Auto) 0 % (0-3) Neutrophils # (Auto) 14.2 x10^3/uL (1.8-7.7) Lymphocytes # (Auto) 2.1 x10^3/uL (1.0-4.8) Monocytes # (Auto) 0.8 x10^3/uL (0.0-1.1) Eosinophils # (Auto) 0.0 x10^3/uL (0.0-0.7) Basophils # (Auto) 0.1 x10^3/uL (0.0-0.2) Images Images Chest radiograph: A frontal view of the chest is obtained. There is no infiltrate, pleural effusion or pneumothorax. The heart is normal in size. There are calcified granulomas. IMPRESSION: No acute pulmonary finding. CT head w/o contrast: There is no acute or subacute extra-axial or intraparenchymal hemorrhage. There is no mass effect or midline shift. There is no hydrocephalus. There are areas of decreased attenuation within the cerebral white matter, nonspecific and likely related to chronic small vessel disease. There is cerebral volume loss. There is a suspected small chronic lacunar infarct within the left basal ganglia. The visualized portions of the orbits, paranasal sinuses and mastoid air cells are unremarkable. No suspicious calvarial lesion is seen. IMPRESSION: 1. No acute intracranial finding. Note is made that MRI is more sensitive for acute infarction. 2. Bilateral cerebral white matter changes, likely due to chronic small vessel disease. 3. Suspected small chronic infarct within the left basal ganglia. 4. Cerebral volume loss. Head and neck CTA: There is a normal caliber aortic arch. No aortic dissection is seen. There is a common origin of the right innominate and left common carotid arteries, a normal aortic arch branching variant. The origins of the arch great vessels are widely patent. There is intimal thickening involving the bilateral common carotid arteries. There is partially calcified atherosclerotic plaque involving the carotid bulbs and origins of the internal carotid arteries, with less than 50 percent stenosis. There is also partially calcified atherosclerotic plaque involving the supraclinoid internal carotid arteries, with less than 50 percent percent stenosis. No hemodynamically significant stenosis is seen involving the cerebral arteries. The left posterior communicating arteries likely developmental or absent. The basilar artery is widely patent. The distal left vertebral artery is hypoplastic, a normal variant. There is no aneurysm. There is no suspicious enhancing lesion. There is cerebral volume loss. There are cerebral white matter changes, likely due to chronic small vessel disease. The orbits, paranasal sinuses and mastoid air cells are unremarkable. There is no lymphadenopathy. There is a small left pleural effusion. There is partial visualization of left lower lobe pneumonia. There is no pneumothorax. There are degenerative changes throughout the cervical spine. This is associated with mild right foraminal stenosis at C2-C3, severe left foraminal stenosis at C3-C4, severe left foraminal stenosis at C4-C5, moderate left foraminal stenosis at C5-C6, and mild to moderate left foraminal stenosis at C6-C7. IMPRESSION: 1. Mild atherosclerotic plaque involving the carotid bifurcations and supraclinoid internal carotid arteries, with less than 50 percent stenosis. No severe stenosis or occlusion is seen involving the neck or intracranial arteries. 2. Bilateral cerebral white matter changes, likely due to chronic. Note is made that MRI is more sensitive for acute infarction. 3. Small left pleural effusion and left lower lobe pneumonia, partially included on the [id number]. 4. Multilevel degenerative change involving the cervical spine, resulting in stenosis as described above. VTE Prophylaxis Ordered VTE Prophylaxis Devices: No VTE Pharmacological Prophylaxi: Yes Assessment/Plan Assessment/Plan A/P: Septic shock - likely from gluteal ulcer vs pneumonia vs possible COVID 19. Given empiric antibiotics, fluids. RIJ CVC for pressors after failure of appropriate IVF resuscitation Gluteal ulcer - appears unstageable. Patient notably mostly bedbound with possible prior CVA on his CT head. Wound care, frequent turning q2hrs and IV antibiotics DENIS - vasomotor nephropathy from septic shock, will monitor renal function Acute encephalopathy - likely from septic shock, less likely CVA. Neurology recommended MRI, however no focal deficits found. Recommended against tPA Anemia - will check for iron, b12 Lactic acidosis - due to sepsis, will trend. Abnormal CT head - likely chronic basal ganglia infarct on left Small left pleural effusion and left lower lobe pneumonia - likely gram negative, will cont zosyn Schizophrenia - on haldol, depakote, and seroquel, will reduce dosing slightly given his EPS symptoms Shaking - likely EPS, will schedule benztropine BID and prn benadryl for breakthrough dystonia and akathisia (shaking) H/O ETOH abuse - in remission now in [facility] skilled psych placement HTN - hold meds for septic shock Constipation - will keep on bowel regimen. Given proximity of gluteal ulcer may need rectal tube if he begins to have BM FEN - regular diet PPX - heparin FULL CODE Dispo - ICU for septic shock likely from above CC domo 47 minutes Justifications for Admission Other Justification DANICA PHAM MD Jul 29, 2020 16:46
--- NOTE | 2020-07-29 17:02 | NUR ---
Pharmacy Vancomycin Dosing Note S:Consulted to monitor and dose vancomycin started 07/29/20. O:EDMUND WAGONER is a 64 year old M with Sepsis Height: 6 feet, 1 inches Weight: 88.0 kg [place] Body Weight: 79.90 Adjusted Body Weight: 83.14 Dosing Weight: Actual Other Antibiotics: ZOSYN LABS: Last BUN: 20 Last Creatinine: 2 Creatinine Clearance: 44 mL/min Last WBC: 17.1 Last Procalcitonin: Tmax (past 24 hours): 95.1 Microbiology: I/O: Drug Levels: Last level: on at Last dose given 07/29/20 at 1603 Vancomycin Dosing: Loading Dose: 2000 mg x1 Dosing Weight: Actual Target Trough: 15-20 A: Based on: weight and renal funtion P: 1. Begin Vancomycin 1250 mg IV q24h 2. Follow up Trough level on 07/31/20 at 1530 3. Pharmacy will continue to monitor, follow and adjust therapy as needed. Radha Bowen RPH, 07/29/20 [id number]
[2020-07-29 17:30] LABS: % BANDS 11 % (0-9); % LYMPHS 15 % (24-48); % METAS 1 % (0-0); % MONOS 4 % (0-10); % MYELOS 1 % (0-0); % SEGS 68 % (35-66)
[2020-07-29 17:32] LABS: PLT ESTIMATE ADEQUATE (ADEQUATE); TOXIC GRANULATION MOD
[2020-07-29 17:38] LABS: POLYCHROMASIA SLIGHT
[2020-07-29 18:38] VITALS: BP 126/93
[2020-07-29] MEDS ORDERED: ALBUMIN HUMAN 5% 500 ML IV ONE (18:45)
[2020-07-29 20:45] VITALS: BP 113/63
[2020-07-29] MEDS ORDERED: DOCUSATE SODIUM 100 MG CAPSULE. PO PRN (20:45)
[2020-07-29] MEDS ORDERED: ACETAMINOPHEN 325 MG TABLET. PO PRN (20:45)
[2020-07-29] MEDS ORDERED: ONDANSETRON PF 4 MG/2 ML VIAL. IV PRN (20:45)
[2020-07-29 21:00] VITALS: BP 100/66
[2020-07-29] MEDS ORDERED: diphenhydrAMINE 50 MG/ML VIAL IVP PRN (21:00)
[2020-07-29] MEDS ORDERED: BENZTROPINE MESYLATE 2 MG/2 ML VIAL. IM PRN (21:00)
[2020-07-29] MEDS: HALOPERIDOL 2 MG TABLET. PO SCH (21:36)
[2020-07-29] MEDS: VALPROIC ACID 250 MG CAPSULE. PO SCH (21:36)
[2020-07-29] MEDS: QUEtiapine 100 MG TABLET. PO SCH (21:37)
[2020-07-29] MEDS: PIPERACILLIN/TAZOBACTAM 3.375 GM in IV NORMAL SALINE 50ML 50 ML IV SCH (21:38)
[2020-07-29] MEDS: PSYLLIUM HUSK (SUGAR FREE) 1 PKT PACKET PO SCH (21:38)
[2020-07-29] MEDS: HEPARIN for SUB-Q USE 5,000 UNIT/ML VIAL. SQ SCH (21:39)
[2020-07-29] MEDS: BENZTROPINE MESYLATE 2 MG/2 ML VIAL. IM SCH (21:40)
[2020-07-29 22:00] VITALS: BP 127/68
[2020-07-29 23:00] VITALS: BP 112/69
[2020-07-30] VITALS (27 sets, daily range): BP systolic 78–154; BP diastolic 48–99
--- NOTE | 2020-07-30 00:19 | NUR ---
B/P 78/49, pulse 86. Rechecked and B/P 87/48, Pulse 92. Drip adjusted per Jesika AYALA (charge nurse).
[2020-07-30] MEDS: PIPERACILLIN/TAZOBACTAM 3.375 GM in IV NORMAL SALINE 50ML 50 ML IV SCH ×4 (00:27→17:09)
--- NOTE | 2020-07-30 03:30 | NUR ---
Drip adjusted per Jesika AYALA.
--- NOTE | 2020-07-30 06:08 | NUR ---
Jesika RN(charge hand) placed drip on hold and Jesika RN is monitoring B/P and need for drip.
[2020-07-30] MEDS: HEPARIN for SUB-Q USE 5,000 UNIT/ML VIAL. SQ SCH ×3 (06:28→22:48)
--- NOTE | 2020-07-30 06:54 | PDOC ---
Infectious Disease Note Vital Sign Vital Signs Vital Signs Date Time Temp Pulse Resp B/P (MAP) Pulse Ox O2 Delivery O2 Flow Rate FiO2 07/30/20 06:05 76 16 113/77 (89) 100 Room Air 07/30/20 04:12 97.5 97.5 07/29/20 14:24 4.0 Labs Lab Laboratory Tests Test 07/29/20 13:49 07/29/20 14:10 07/29/20 14:20 07/29/20 18:00 Prothrombin Time 14.0 SEC (11.7-14.0) Prothromb Time International Ratio 1.1 (0.8-1.1) Activated Partial Thromboplast Time 27 SEC (24-38) Sodium Level 136 mmol/L (136-145) Potassium Level 3.8 mmol/L (3.5-5.1) Chloride Level 99 mmol/L (98-107) Carbon Dioxide Level 25 mmol/L (21-32) Anion Gap 12 (6-14) Blood Urea Nitrogen 20 mg/dL (8-26) Creatinine 2.0 mg/dL (0.7-1.3) Estimated GFR (Cockcroft-Gault) 40.9 Glucose Level 161 mg/dL (70-99) Calcium Level 9.1 mg/dL (8.5-10.1) Iron Level 68 ug/dL (65-175) Total Iron Binding Capacity 195 ug/dL (250-450) Iron Saturation 35 % (15-34) Troponin I Quantitative < 0.017 ng/mL (0.000-0.055) 25-Hydroxy Vitamin D Total 8.9 ng/mL (30-100) Thyroid Stimulating Hormone (TSH) 8.350 uIU/mL (0.358-3.74) Lactic Acid Level 5.6 mmol/L (0.4-2.0) 2.8 mmol/L (0.4-2.0) White Blood Count 17.1 x10^3/uL (4.0-11.0) Red Blood Count 3.07 x10^6/uL (4.30-5.70) Hemoglobin 8.9 g/dL (13.0-17.5) Hematocrit 27.6 % (39.0-53.0) Mean Corpuscular Volume 90 fL (79-100) Mean Corpuscular Hemoglobin 29 pg (25-35) Mean Corpuscular Hemoglobin Concent 32 g/dL (31-37) Red Cell Distribution Width 15.2 % (11.5-14.5) Platelet Count 171 x10^3/uL (140-400) Neutrophils (%) (Auto) 83 % (31-73) Lymphocytes (%) (Auto) 12 % (24-48) Monocytes (%) (Auto) 5 % (0-9) Eosinophils (%) (Auto) 0 % (0-3) Basophils (%) (Auto) 0 % (0-3) Neutrophils # (Auto) 14.2 x10^3/uL (1.8-7.7) Lymphocytes # (Auto) 2.1 x10^3/uL (1.0-4.8) Monocytes # (Auto) 0.8 x10^3/uL (0.0-1.1) Eosinophils # (Auto) 0.0 x10^3/uL (0.0-0.7) Basophils # (Auto) 0.1 x10^3/uL (0.0-0.2) Segmented Neutrophils % 68 % (35-66) Band Neutrophils % 11 % (0-9) Lymphocytes % 15 % (24-48) Monocytes % 4 % (0-10) Metamyelocytes % 1 % (0-0) Myelocytes % 1 % (0-0) Toxic Granulation Mod Platelet Estimate Adequate (ADEQUATE) Polychromasia Slight Objective Assessment Sepsis POA - off pressors now PNA Left > right DENIS Severe constipation Distended bladder - unable to place balderas Plan Plan of Care D/c Vanc with DENIS Cont Zosyn Add Zyvox F/u labs and cults/COVID Likely needs balderas but unable to place previously - if placed recommend UA C and S D/w nursing Reviewed [facility] records - no abx 35 mins Thank you # [id number] ANGELA BRIGHT MD Jul 30, 2020 06:54
[2020-07-30 07:08] LABS: ALBUMIN 2.2 g/dL (3.4-5.0); ALBUMIN/GLOBULIN RATIO 0.6 (1.0-1.7); CALCIUM 8.2 mg/dL (8.5-10.1); CREATININE 1.5 mg/dL (0.7-1.3); POTASSIUM 3.6 mmol/L (3.5-5.1); TOTAL BILIRUBIN 0.3 mg/dL (0.2-1.0); TOTAL PROTEIN 6.2 g/dL (6.4-8.2)
[2020-07-30 07:37] LABS: BASO # 0.1 x10^3/uL (0.0-0.2); BASO % 1 % (0-3); EOS # 0.1 x10^3/uL (0.0-0.7); EOS % 1 % (0-3); HEMATOCRIT 21.2 % (39.0-53.0); HEMOGLOBIN 7.1 g/dL (13.0-17.5); LYMPH # 1.5 x10^3/uL (1.0-4.8); LYMPH % 21 % (24-48); MEAN CORPUSCULAR HEMOGLOBIN 29 pg (25-35); MEAN CORPUSCULAR HGB CONC 33 g/dL (31-37); MEAN CORPUSCULAR VOLUME 88 fL (79-100); MONO # 0.4 x10^3/uL (0.0-1.1); MONO % 6 % (0-9); NEUT # 4.9 x10^3/uL (1.8-7.7); NEUT % 71 % (31-73); PLATELET COUNT 155 x10^3/uL (140-400); RED BLOOD COUNT 2.41 x10^6/uL (4.30-5.70); RED CELL DISTRIBUTION WIDTH 15.2 % (11.5-14.5); WHITE BLOOD COUNT 6.9 x10^3/uL (4.0-11.0)
[2020-07-30] MEDS: VALPROIC ACID 250 MG CAPSULE. PO SCH ×2 (07:50→20:34)
[2020-07-30] MEDS: CHOLECALCIFEROL (VITAMIN D3) 5,000 UNIT CAPSULE PO SCH (07:51)
[2020-07-30] MEDS: HALOPERIDOL 2 MG TABLET. PO SCH ×2 (07:51→20:34)
[2020-07-30] MEDS: BENZTROPINE MESYLATE 2 MG/2 ML VIAL. IM SCH ×2 (07:51→20:35)
--- NOTE | 2020-07-30 08:16 | CONS ---
DATE OF CONSULTATION: 07/30/2020 PATIENT'S ROOM: ICU 102. REQUESTING PHYSICIAN: Sharif Richardson MD REASON FOR CONSULTATION: Sepsis, pneumonia. HISTORY OF PRESENT ILLNESS: The patient is a 64-year-old gentleman who resides at [facility]. He was not on any antibiotics prior to his transfer to [facility]. He was brought to the Emergency Room on the afternoon of the secondary to presyncope as he suddenly lost consciousness, became unresponsive. On arrival, he had a creatinine of 2. White blood cell count was 17.1. Temperature was 95.1 rectally. Blood pressure dropped as low as 71/47. He underwent a chest x-ray, which showed small left greater than right pleural effusions, left greater than right lower lobe infiltrates. CT scan of the chest, abdomen and pelvis was also obtained, showed partially consolidated left lower lobe pneumonia, right lower lobe interstitial infiltrate, mediastinal and hilar lymphadenopathy, large amount of stool in the colon and rectal vault and had a distended bladder. CT scan of the head showed no acute changes. He was admitted to the Intensive Care Unit, placed on Levophed, vancomycin and Zosyn. Currently, the patient lying in bed. He is comfortable. He denies any fevers or chills or sweats. He has no headaches, no sinus issues, no sore throat, cough. No chest pain. He states he has not had any problems passing his bowels or his urine. No dysuria or frequency. He denies any falls and no rash or itch. PAST MEDICAL HISTORY: Positive for anxiety, schizophrenia, alcohol dependence, primary hypertension, constipation, TIA. REVIEW OF SYSTEMS: Otherwise negative except for mentioned above. ALLERGIES: No known drug allergies. SOCIAL HISTORY: He denies any history of smoking in the past. There is a note of previous heavy alcohol abuse and currently resides in [facility]. FAMILY HISTORY: Noncontributory. CURRENT MEDICATIONS: Include vancomycin, Zosyn, Levophed has been discontinued, Cogentin, Colace, heparin, Haldol, Seroquel, valproic acid. PHYSICAL EXAMINATION: VITAL SIGNS: T-max was 95.1 rectally on arrival, most recently 97.5 orally, pulse 76, respirations 16, blood pressure 113/77, satting 100% on room air. CONSTITUTIONAL: He is lying in bed. He is cooperative. He is in no acute distress. He is pleasant. HEENT: Pupils have some questionable early cataracts. He has normal conjunctivae. Oral cavity, pharynx has poor dentition. NECK: Supple, no JVD. He has a right IJ in place. LUNGS: Decreased at the bases. HEART: S1, S2, without murmur. ABDOMEN: Distended, no guarding, no rebound with some decreased, but positive bowel sounds. EXTREMITIES: Without clubbing, cyanosis. He has 2+ edema. SKIN: Warm to touch without generalized signs of rash. NEUROLOGIC: Nonfocal, answers questions, moves all extremities. PSYCHIATRIC: Affect was pleasant. LABORATORY DATA: White count 17.1, hemoglobin 8.9, platelets 171, neutrophils 83, segs 68, bands 11, lymphs 15. Creatinine was 2, glucose of 161. Radiology reviewed in history of present illness. He has no previous laboratory values here. IMPRESSION: 1. Sepsis present on admission, off pressors now. 2. Pneumonia, left greater than right. 3. Acute kidney injury. 4. Severe constipation. 5. Distended bladder, unable to place a Terrazas. RECOMMENDATIONS: Discontinue vancomycin with his acute kidney injury. We will continue Zosyn. We will add Zyvox. Follow up labs, cultures, COVID test, likely needs Terrazas, but unable to place previously. If placed, recommend UA, C and S. This was discussed with nursing. Reviewed [facility] notes, there are no antibiotics. No previous labs in this chart. Spent 35 minutes of critical care time. Thank you in the patient's care. If you have any questions, please do not hesitate to contact me. ANGELA BRIGHT MD DR: BRYON/rayray JOB#: [id number] / [id number] CHANTAL
--- NOTE | 2020-07-30 09:26 | NUR ---
Patient's bladder scanned per Dr. Kelly's request. Scan showed 778ml in bladder. Reported this to charger, Dianna. Dianna RN attempted a 14F balderas and was able to insert with urine feedback. UA sent per Dr. Kelly's note. Will continue to monitor.
[2020-07-30 09:41] LABS: BILIRUBIN,URINE NEGATIVE (NEG); CLARITY,URINE CLEAR; COLOR,URINE YELLOW; NITRITE,URINE NEGATIVE (NEG); PH,URINE 5.5 (<5.0-8.0); PROTEIN,URINE NEGATIVE (NEG-TRACE); UROBILINOGEN,URINE 0.2 mg/dL (0.2 mg/dL)
[2020-07-30 09:58] LABS: BACTERIA,URINE 0 /HPF (0-FEW); WBC,URINE 0 /HPF (0-4)
--- NOTE | 2020-07-30 10:52 | PDOC ---
[employer] PROGRESS NOTE Date of Service DOS: DATE: 07/30/20 TIME: 10:47 Chief Complaint Chief Complaint Assessment/Plan A/P: Septic shock - likely from gluteal ulcer vs pneumonia vs possible COVID 19. Given empiric antibiotics, fluids. RIJ CVC for pressors after failure of appropriate IVF resuscitation Gluteal ulcer - appears unstageable. Patient notably mostly bedbound with possible prior CVA on his CT head. Wound care, frequent turning q2hrs and IV antibiotics DENIS - vasomotor nephropathy from septic shock, will monitor renal function Acute encephalopathy - likely from septic shock, less likely CVA. Neurology recommended MRI, however no focal deficits found. Recommended against tPA Anemia - will check for iron, b12 Lactic acidosis - due to sepsis, will trend. 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 Given proximity of gluteal ulcer may need rectal tube if he begins to have BM FEN - regular diet PPX - heparin FULL CODE Dispo - ICU for septic shock likely from above History of Present Illness History of Present Illness Mr Gustafson is a 64yo M w/ PMHx schizophrenia, h/o heavy ETOH abuse, depression with anxiety, HTN, constipation who presents from his ambulatory nurse SNF for unres ponsiveness. EMS was contacted as the patient was found unresponsive and shaking 20 minutes prior to their call. He believes its August 2049 does know his name and birthdate. Due to his lack of appropriate response and tremors a code stroke was called and he underwent CT head and CT neck which were negative for acute pathology. Suspected chronic left basal ganglia infarct was noted. CTA negative for occlusion. Notably with temperature 95.1 F rectal. BP 74/47 heart rate 154. In ED he was not responsive to 2 fluid boluses, was started on empiric antibiotics and right IJ CVC was placed for pressor support. After his blood pressure improved he became more responsive and was moving all 4 extremities able to carry on a conversation and follow commands. He complains of weakness and tremors he cannot stop. He notes no loss of appetite no abdominal complaints. He does no chills no fevers. Some slight shortness of breath. No chest pain. He does have problems with urinary retention notes he is trying to urinate when he is unable to. He notes he is relatively bedbound 07/30: Patient evaluated bedside. Afebrile. Hemoglobin dropped from 8.9-7.1, likely delusional. Continue to monitor and transfuse at Hb <7. WBC improved, lactic acid improved. Plan to continue IV fluid until lactic acid clears. Continue antibiotics per ID. Vitals/I&O Vitals/I&O: Vital Signs Date Time Temp Pulse Resp B/P (MAP) Pulse Ox O2 Delivery O2 Flow Rate FiO2 07/30/20 10:32 98.0 74 10 95/57 (70) 100 Room Air 98.0 07/29/20 14:24 4.0 I & O 07/29/20 07/29/20 07/30/20 15:00 23:00 07:00 Intake Total 2750 ml 550 ml Output Total 1 ml Balance 2749 ml 550 ml Physical Exam General: Alert, Cooperative, No acute distress Heart: Regular rate Lungs: Clear Abdomen: Normal bowel sounds, Soft, No tenderness Extremities: No clubbing, No cyanosis, Normal pulses Skin: Other (large 4x8 gluteal ulcer) Labs Labs: Laboratory Tests Test 07/29/20 13:49 07/29/20 14:10 07/29/20 14:20 07/29/20 18:00 Prothrombin Time 14.0 SEC (11.7-14.0) Prothromb Time International Ratio 1.1 (0.8-1.1) Activated Partial Thromboplast Time 27 SEC (24-38) Sodium Level 136 mmol/L (136-145) Potassium Level 3.8 mmol/L (3.5-5.1) Chloride Level 99 mmol/L (98-107) Carbon Dioxide Level 25 mmol/L (21-32) Anion Gap 12 (6-14) Blood Urea Nitrogen 20 mg/dL (8-26) Creatinine 2.0 mg/dL (0.7-1.3) Estimated GFR (Cockcroft-Gault) 40.9 Glucose Level 161 mg/dL (70-99) Calcium Level 9.1 mg/dL (8.5-10.1) Iron Level 68 ug/dL (65-175) Total Iron Binding Capacity 195 ug/dL (250-450) Iron Saturation 35 % (15-34) Troponin I Quantitative < 0.017 ng/mL (0.000-0.055) 25-Hydroxy Vitamin D Total 8.9 ng/mL (30-100) Thyroid Stimulating Hormone (TSH) 8.350 uIU/mL (0.358-3.74) Lactic Acid Level 5.6 mmol/L (0.4-2.0) 2.8 mmol/L (0.4-2.0) White Blood Count 17.1 x10^3/uL (4.0-11.0) Red Blood Count 3.07 x10^6/uL (4.30-5.70) Hemoglobin 8.9 g/dL (13.0-17.5) Hematocrit 27.6 % (39.0-53.0) Mean Corpuscular Volume 90 fL (79-100) Mean Corpuscular Hemoglobin 29 pg (25-35) Mean Corpuscular Hemoglobin Concent 32 g/dL (31-37) Red Cell Distribution Width 15.2 % (11.5-14.5) Platelet Count 171 x10^3/uL (140-400) Neutrophils (%) (Auto) 83 % (31-73) Lymphocytes (%) (Auto) 12 % (24-48) Monocytes (%) (Auto) 5 % (0-9) Eosinophils (%) (Auto) 0 % (0-3) Basophils (%) (Auto) 0 % (0-3) Neutrophils # (Auto) 14.2 x10^3/uL (1.8-7.7) Lymphocytes # (Auto) 2.1 x10^3/uL (1.0-4.8) Monocytes # (Auto) 0.8 x10^3/uL (0.0-1.1) Eosinophils # (Auto) 0.0 x10^3/uL (0.0-0.7) Basophils # (Auto) 0.1 x10^3/uL (0.0-0.2) Segmented Neutrophils % 68 % (35-66) Band Neutrophils % 11 % (0-9) Lymphocytes % 15 % (24-48) Monocytes % 4 % (0-10) Metamyelocytes % 1 % (0-0) Myelocytes % 1 % (0-0) Toxic Granulation Mod Platelet Estimate Adequate (ADEQUATE) Polychromasia Slight Test 07/30/20 06:15 07/30/20 09:24 White Blood Count 6.9 x10^3/uL (4.0-11.0) Red Blood Count 2.41 x10^6/uL (4.30-5.70) Hemoglobin 7.1 g/dL (13.0-17.5) Hematocrit 21.2 % (39.0-53.0) Mean Corpuscular Volume 88 fL (79-100) Mean Corpuscular Hemoglobin 29 pg (25-35) Mean Corpuscular Hemoglobin Concent 33 g/dL (31-37) Red Cell Distribution Width 15.2 % (11.5-14.5) Platelet Count 155 x10^3/uL (140-400) Neutrophils (%) (Auto) 71 % (31-73) Lymphocytes (%) (Auto) 21 % (24-48) Monocytes (%) (Auto) 6 % (0-9) Eosinophils (%) (Auto) 1 % (0-3) Basophils (%) (Auto) 1 % (0-3) Neutrophils # (Auto) 4.9 x10^3/uL (1.8-7.7) Lymphocytes # (Auto) 1.5 x10^3/uL (1.0-4.8) Monocytes # (Auto) 0.4 x10^3/uL (0.0-1.1) Eosinophils # (Auto) 0.1 x10^3/uL (0.0-0.7) Basophils # (Auto) 0.1 x10^3/uL (0.0-0.2) Sodium Level 143 mmol/L (136-145) Potassium Level 3.6 mmol/L (3.5-5.1) Chloride Level 109 mmol/L (98-107) Carbon Dioxide Level 29 mmol/L (21-32) Anion Gap 5 (6-14) Blood Urea Nitrogen 16 mg/dL (8-26) Creatinine 1.5 mg/dL (0.7-1.3) Estimated GFR (Cockcroft-Gault) 57.0 BUN/Creatinine Ratio 11 (6-20) Glucose Level 66 mg/dL (70-99) Calcium Level 8.2 mg/dL (8.5-10.1) Total Bilirubin 0.3 mg/dL (0.2-1.0) Aspartate Amino Transf (AST/SGOT) 15 U/L (15-37) Alanine Aminotransferase (ALT/SGPT) 15 U/L (16-63) Alkaline Phosphatase 42 U/L (46-116) Total Protein 6.2 g/dL (6.4-8.2) Albumin 2.2 g/dL (3.4-5.0) Albumin/Globulin Ratio 0.6 (1.0-1.7) Urine Collection Type Unknown Urine Color Yellow Urine Clarity Clear Urine pH 5.5 (<5.0-8.0) Urine Specific [place] 1.015 (1.000-1.030) Urine Protein Negative mg/dL (NEG-TRACE) Urine Glucose (UA) Negative mg/dL (NEG) Urine Ketones (Stick) Negative mg/dL (NEG) Urine Blood Moderate (NEG) Urine Nitrite Negative (NEG) Urine Bilirubin Negative (NEG) Urine Urobilinogen Dipstick 0.2 mg/dL (0.2 mg/dL) Urine Leukocyte Esterase Negative (NEG) Urine RBC 11-20 /HPF (0-2) Urine WBC 0 /HPF (0-4) Urine Squamous Epithelial Cells Occ /LPF Urine Bacteria 0 /HPF (0-FEW) Assessment and Plan Assessmemt and Plan Problems Medical Problems: (1) Pneumonia Status: Acute (2) Septic shock Status: Acute Comment Review of Relevant I have reviewed the following items any (where applicable) has been applied. Medications: Current Medications Medications (Trade) Dose Ordered Sig/Jeffrey Route PRN Reason Start Time Stop Time Status Last Admin Dose Admin Iohexol (Omnipaque 300 Mg/ml) 75 ml 1X ONCE IV 07/29/20 13:45 07/29/20 13:46 DC 07/29/20 14:08 Sodium Chloride 1,000 ml @ 1,000 mls/hr 1X ONCE IV 07/29/20 13:45 07/29/20 14:44 DC 07/29/20 13:53 Norepinephrine Bitartrate 8 mg/ Dextrose 258 ml @ 15.48 mls/ hr 1X ONCE IV 07/29/20 14:15 07/30/20 06:54 DC 07/29/20 14:31 Piperacillin Sod/ Tazobactam Sod 3.375 gm/Sodium Chloride 50 ml @ 100 mls/hr 1X ONCE IV 07/29/20 14:30 07/29/20 14:59 DC 07/29/20 14:39 Vancomycin HCl (Vanco Per Pharmacy) 1 each PRN DAILY PRN MC SEE COMMENTS 07/29/20 15:00 07/29/20 18:39 DC 07/29/20 17:00 Sodium Chloride 1,000 ml @ 1,000 mls/hr 1X ONCE IV 07/29/20 15:00 07/29/20 15:59 DC 07/29/20 15:06 Sodium Chloride 1,000 ml @ 1,000 mls/hr 1X ONCE IV 07/29/20 15:00 07/29/20 15:59 DC 07/29/20 17:33 Vancomycin HCl 2 gm/Sodium Chloride 500 ml @ 250 mls/hr 1X ONCE IV 07/29/20 15:30 07/29/20 17:29 DC 07/29/20 16:03 Sodium Chloride 1,000 ml @ 100 mls/hr Q10H IV 07/29/20 16:45 07/29/20 20:44 DC 07/30/20 05:35 Piperacillin Sod/ Tazobactam Sod 3.375 gm/Sodium Chloride 50 ml @ 100 mls/hr Q6HRS IV 07/29/20 19:30 07/30/20 06:23 Albumin Human 500 ml @ 125 mls/hr 1X ONCE IV 07/29/20 18:45 07/29/20 22:44 DC 07/29/20 21:37 Heparin Sodium (Porcine) (Heparin Sodium) 5,000 unit Q8HRS SQ 07/29/20 22:00 07/30/20 06:28 Psyllium Hydrophilic Mucilloid (Metamucil Fiber Packet) 1 pkt QHS PO 07/29/20 21:00 07/29/20 21:38 Haloperidol (Haldol) 2 mg BID PO 07/29/20 21:00 07/30/20 07:51 Quetiapine Fumarate (SEROquel) 400 mg QHS PO 07/29/20 21:15 07/29/20 21:37 Valproic Acid (Depakene) 250 mg BID PO 07/29/20 21:15 07/30/20 07:50 Benztropine Mesylate (Cogentin) 1 mg BID IM 07/29/20 21:15 07/30/20 07:51 Vitamin D (Vitamin D3) 5,000 unit DAILY PO 07/30/20 09:00 07/30/20 07:51 Linezolid/Dextrose 300 ml @ 300 mls/hr Q12HR IV 07/30/20 09:00 07/30/20 07:50 Justifications for Admission Other Justification JACQUELIN OCHOA MD Jul 30, 2020 10:52
[2020-07-30] MEDS: LACTOBACILLUS RHAMNOSUS GG 1 CAPSULE. PO SCH ×2 (10:59→20:34)
[2020-07-30] MEDS ORDERED: VANCOMYCIN 1.25 GM in IV NORMAL SALINE 250ML 250 ML IV SCH (16:00)
--- NOTE | 2020-07-30 16:27 | PDOC2 ---
CONSULT Date of Consult Date of Consult DATE: 07/30/20 TIME: 16:24 Reason for Consult Reason for Consult: decub ulcer Referring Physician Referring Physician: Dr. Galicia Identification/Chief Complaint Chief Complaint none Source Source: Chart review, Patient History of Present Illness Reason for Visit: 64 yo M with syncopal episodes secondary to sepsis. Pt seen in ICU and appears comfortable. Pt poor historian but denies complaints. Noted to have decub ulcers. Past Medical History Cardiovascular: HTN CENTRAL NERVOUS SYSTEM: TIA Psych: Addictions (ETOH), Schizophrenia Past Surgical History Past Surgical History: No pertinent history Family History Family History: Family History Unknown Social History <1 pack per day ALCOHOL: heavy Drugs: None Current Problem List Problem List Problems Medical Problems: (1) Pneumonia Status: Acute (2) Septic shock Status: Acute Current Medications Current Medications Current Medications Iohexol (Omnipaque 300 Mg/ml) 75 ml 1X ONCE IV Last administered on 07/29/20at 14:08; Start 07/29/20 at 13:45; Stop 07/29/20 at 13:46; Status DC Info (CONTRAST GIVEN -- Rx MONITORING) 1 each PRN DAILY PRN MC SEE COMMENTS; S tart 07/29/20 at 13:45; Stop 07/31/20 at 13:44 Sodium Chloride 1,000 ml @ 1,000 mls/hr 1X ONCE IV Last administered on 07/29/20at 13:53; Start 07/29/20 at 13:45; Stop 07/29/20 at 14:44; Status DC Norepinephrine Bitartrate 8 mg/ Dextrose 258 ml @ 15.48 mls/ hr 1X ONCE IV Last administered on 07/29/20at 14:31; Start 07/29/20 at 14:15; Stop 07/30/20 at 06:54; Status DC Piperacillin Sod/ Tazobactam Sod (Zosyn Per Pharmacy) 1 each PRN DAILY PRN MC SEE COMMENTS; Start 07/29/20 at 14:30 Piperacillin Sod/ Tazobactam Sod 3.375 gm/Sodium Chloride 50 ml @ 100 mls/hr 1X ONCE IV Last administered on 07/29/20at 14:39; Start 07/29/20 at 14:30; Stop 07/29/20 at 14:59; Status DC Vancomycin HCl (Vanco Per Pharmacy) 1 each PRN DAILY PRN MC SEE COMMENTS Last administered on 07/29/20at 17:00; Start 07/29/20 at 15:00; Stop 07/29/20 at 18:39; Status DC Sodium Chloride 1,000 ml @ 1,000 mls/hr 1X ONCE IV Last administered on 07/29/20at 15:06; Start 07/29/20 at 15:00; Stop 07/29/20 at 15:59; Status DC Sodium Chloride 1,000 ml @ 1,000 mls/hr 1X ONCE IV Last administered on 07/29/20at 17:33; Start 07/29/20 at 15:00; Stop 07/29/20 at 15:59; Status DC Sodium Chloride (NORMAL SALINE FLUSH for STERILE FIELD) 10 ml STK-MED ONCE .ROUTE ; Start 07/29/20 at 15:08; Stop 07/29/20 at 15:08; Status DC Vancomycin HCl 2 gm/Sodium Chloride 500 ml @ 250 mls/hr 1X ONCE IV Last administered on 07/29/20at 16:03; Start 07/29/20 at 15:30; Stop 07/29/20 at 17:29; Status DC Sodium Chloride 1,000 ml @ 1,000 mls/hr 1X ONCE IV ; Start 07/29/20 at 16:15; Stop 07/29/20 at 17:14; Status DC Sodium Chloride 1,000 ml @ 100 mls/hr Q10H IV Last administered on 07/30/20at 05:35; Start 07/29/20 at 16:45; Stop 07/29/20 at 20:44; Status DC Piperacillin Sod/ Tazobactam Sod 3.375 gm/Sodium Chloride 50 ml @ 100 mls/hr Q6HRS IV Last administered on 07/30/20at 11:00; Start 07/29/20 at 19:30 Vancomycin HCl 1.25 gm/Sodium Chloride 250 ml @ 167 mls/hr Q24H IV ; Start 07/30/20 at 16:00; Stop 07/30/20 at 06:46; Status DC Vancomycin HCl (Vancomycin Trough Level) 1 each 1X ONCE MC ; Start 07/31/20 at 15:30; Stop 07/31/20 at 15:31; Status Cancel Vancomycin HCl (Vanco Per Pharmacy) 1 each PRN DAILY PRN MC SEE COMMENTS; Start 07/29/20 at 18:45; Stop 07/30/20 at 06:46; Status DC Albumin Human 500 ml @ 125 mls/hr 1X ONCE IV Last administered on 07/29/20at 21:37; Start 07/29/20 at 18:45; Stop 07/29/20 at 22:44; Status DC Heparin Sodium (Porcine) (Heparin Sodium) 5,000 unit Q8HRS SQ Last administered on 07/30/20at 14:55; Start 07/29/20 at 22:00 Ondansetron HCl (Zofran) 4 mg PRN Q4HRS PRN IV NAUSEA/VOMITING; Start 07/29/20 at 20:45 Acetaminophen (Tylenol) 650 mg PRN Q4HRS PRN PO TEMP OVER 100.4F OR MILD PAIN; Start 07/29/20 at 20:45 Docusate Sodium (Colace) 100 mg PRN BID PRN PO HARD STOOLS; Start 07/29/20 at 20:45 Psyllium Hydrophilic Mucilloid (Metamucil Fiber Packet) 1 pkt QHS PO Last administered on 07/29/20at 21:38; Start 07/29/20 at 21:00 Olanzapine (ZyPREXA ZYDIS) 5 mg PRN BID PRN PO ANXIETY / AGITATION; Start 07/29/20 at 20:45 Benztropine Mesylate (Cogentin) 1 mg PRN BID PRN IM EXTRAPYRAMIDAL SIDE EF FECTS; Start 07/29/20 at 21:00; Stop 07/29/20 at 21:13; Status DC Diphenhydramine HCl (Benadryl) 25 mg PRN Q6HRS PRN IVP SHIVERING; Start 07/29/20 at 21:00 Haloperidol (Haldol) 2 mg BID PO Last administered on 07/30/20at 07:51; Start 07/29/20 at 21:00 Quetiapine Fumarate (SEROquel) 400 mg QHS PO Last administered on 07/29/20at 21:37; Start 07/29/20 at 21:15 Valproic Acid (Depakene) 250 mg BID PO Last administered on 07/30/20at 07:50; Start 07/29/20 at 21:15 Benztropine Mesylate (Cogentin) 1 mg BID IM Last administered on 07/30/20at 07:51; Start 07/29/20 at 21:15 Vitamin D (Vitamin D3) 5,000 unit DAILY PO Last administered on 07/30/20at 07:51; Start 07/30/20 at 09:00 Linezolid/Dextrose 300 ml @ 300 mls/hr Q12HR IV Last administered on 07/30/20at 07:50; Start 07/30/20 at 09:00 Lactobacillus Rhamnosus (Culturelle) 1 cap BID PO Last administered on 07/30/20at 10:59; Start 07/30/20 at 09:00 Active Scripts Active Levofloxacin 500 Mg Tablet 1 Tab PO DAILY Allergies Allergies: Coded Allergies: No Known Drug Allergies (Unverified , 01/16/19) ROS Review of System poor historian Physical Exam General: Alert, Cooperative, No acute distress HEENT: Atraumatic Lungs: Normal air movement Abdomen: Soft, No tenderness Extremities: No clubbing, No cyanosis Skin: Other (reviewed wound pictures with large decub ulcer, no obvious necrotic tissue) Vitals VITALS Vital Signs Date Time Temp Pulse Resp B/P (MAP) Pulse Ox O2 Delivery O2 Flow Rate FiO2 07/30/20 16:09 Room Air 07/30/20 16:08 98.2 90 136/88 (104) 99 98.2 07/30/20 15:00 4.0 07/30/20 12:45 19 Labs Labs Laboratory Tests Test 07/29/20 13:49 07/29/20 14:10 07/29/20 14:20 07/29/20 18:00 Prothrombin Time 14.0 SEC (11.7-14.0) Prothromb Time International Ratio 1.1 (0.8-1.1) Activated Partial Thromboplast Time 27 SEC (24-38) Sodium Level 136 mmol/L (136-145) Potassium Level 3.8 mmol/L (3.5-5.1) Chloride Level 99 mmol/L (98-107) Carbon Dioxide Level 25 mmol/L (21-32) Anion Gap 12 (6-14) Blood Urea Nitrogen 20 mg/dL (8-26) Creatinine 2.0 mg/dL (0.7-1.3) Estimated GFR (Cockcroft-Gault) 40.9 Glucose Level 161 mg/dL (70-99) Calcium Level 9.1 mg/dL (8.5-10.1) Iron Level 68 ug/dL (65-175) Total Iron Binding Capacity 195 ug/dL (250-450) Iron Saturation 35 % (15-34) Troponin I Quantitative < 0.017 ng/mL (0.000-0.055) 25-Hydroxy Vitamin D Total 8.9 ng/mL (30-100) Thyroid Stimulating Hormone (TSH) 8.350 uIU/mL (0.358-3.74) Lactic Acid Level 5.6 mmol/L (0.4-2.0) 2.8 mmol/L (0.4-2.0) White Blood Count 17.1 x10^3/uL (4.0-11.0) Red Blood Count 3.07 x10^6/uL (4.30-5.70) Hemoglobin 8.9 g/dL (13.0-17.5) Hematocrit 27.6 % (39.0-53.0) Mean Corpuscular Volume 90 fL (79-100) Mean Corpuscular Hemoglobin 29 pg (25-35) Mean Corpuscular Hemoglobin Concent 32 g/dL (31-37) Red Cell Distribution Width 15.2 % (11.5-14.5) Platelet Count 171 x10^3/uL (140-400) Neutrophils (%) (Auto) 83 % (31-73) Lymphocytes (%) (Auto) 12 % (24-48) Monocytes (%) (Auto) 5 % (0-9) Eosinophils (%) (Auto) 0 % (0-3) Basophils (%) (Auto) 0 % (0-3) Neutrophils # (Auto) 14.2 x10^3/uL (1.8-7.7) Lymphocytes # (Auto) 2.1 x10^3/uL (1.0-4.8) Monocytes # (Auto) 0.8 x10^3/uL (0.0-1.1) Eosinophils # (Auto) 0.0 x10^3/uL (0.0-0.7) Basophils # (Auto) 0.1 x10^3/uL (0.0-0.2) Segmented Neutrophils % 68 % (35-66) Band Neutrophils % 11 % (0-9) Lymphocytes % 15 % (24-48) Monocytes % 4 % (0-10) Metamyelocytes % 1 % (0-0) Myelocytes % 1 % (0-0) Toxic Granulation Mod Platelet Estimate Adequate (ADEQUATE) Polychromasia Slight Test 07/30/20 06:15 07/30/20 09:24 White Blood Count 6.9 x10^3/uL (4.0-11.0) Red Blood Count 2.41 x10^6/uL (4.30-5.70) Hemoglobin 7.1 g/dL (13.0-17.5) Hematocrit 21.2 % (39.0-53.0) Mean Corpuscular Volume 88 fL (79-100) Mean Corpuscular Hemoglobin 29 pg (25-35) Mean Corpuscular Hemoglobin Concent 33 g/dL (31-37) Red Cell Distribution Width 15.2 % (11.5-14.5) Platelet Count 155 x10^3/uL (140-400) Neutrophils (%) (Auto) 71 % (31-73) Lymphocytes (%) (Auto) 21 % (24-48) Monocytes (%) (Auto) 6 % (0-9) Eosinophils (%) (Auto) 1 % (0-3) Basophils (%) (Auto) 1 % (0-3) Neutrophils # (Auto) 4.9 x10^3/uL (1.8-7.7) Lymphocytes # (Auto) 1.5 x10^3/uL (1.0-4.8) Monocytes # (Auto) 0.4 x10^3/uL (0.0-1.1) Eosinophils # (Auto) 0.1 x10^3/uL (0.0-0.7) Basophils # (Auto) 0.1 x10^3/uL (0.0-0.2) Sodium Level 143 mmol/L (136-145) Potassium Level 3.6 mmol/L (3.5-5.1) Chloride Level 109 mmol/L (98-107) Carbon Dioxide Level 29 mmol/L (21-32) Anion Gap 5 (6-14) Blood Urea Nitrogen 16 mg/dL (8-26) Creatinine 1.5 mg/dL (0.7-1.3) Estimated GFR (Cockcroft-Gault) 57.0 BUN/Creatinine Ratio 11 (6-20) Glucose Level 66 mg/dL (70-99) Calcium Level 8.2 mg/dL (8.5-10.1) Total Bilirubin 0.3 mg/dL (0.2-1.0) Aspartate Amino Transf (AST/SGOT) 15 U/L (15-37) Alanine Aminotransferase (ALT/SGPT) 15 U/L (16-63) Alkaline Phosphatase 42 U/L (46-116) Total Protein 6.2 g/dL (6.4-8.2) Albumin 2.2 g/dL (3.4-5.0) Albumin/Globulin Ratio 0.6 (1.0-1.7) Urine Collection Type Unknown Urine Color Yellow Urine Clarity Clear Urine pH 5.5 (<5.0-8.0) Urine Specific [place] 1.015 (1.000-1.030) Urine Protein Negative mg/dL (NEG-TRACE) Urine Glucose (UA) Negative mg/dL (NEG) Urine Ketones (Stick) Negative mg/dL (NEG) Urine Blood Moderate (NEG) Urine Nitrite Negative (NEG) Urine Bilirubin Negative (NEG) Urine Urobilinogen Dipstick 0.2 mg/dL (0.2 mg/dL) Urine Leukocyte Esterase Negative (NEG) Urine RBC 11-20 /HPF (0-2) Urine WBC 0 /HPF (0-4) Urine Squamous Epithelial Cells Occ /LPF Urine Bacteria 0 /HPF (0-FEW) Laboratory Tests Test 07/29/20 18:00 07/30/20 06:15 07/30/20 09:24 Lactic Acid Level 2.8 mmol/L (0.4-2.0) White Blood Count 6.9 x10^3/uL (4.0-11.0) Red Blood Count 2.41 x10^6/uL (4.30-5.70) Hemoglobin 7.1 g/dL (13.0-17.5) Hematocrit 21.2 % (39.0-53.0) Mean Corpuscular Volume 88 fL (79-100) Mean Corpuscular Hemoglobin 29 pg (25-35) Mean Corpuscular Hemoglobin Concent 33 g/dL (31-37) Red Cell Distribution Width 15.2 % (11.5-14.5) Platelet Count 155 x10^3/uL (140-400) Neutrophils (%) (Auto) 71 % (31-73) Lymphocytes (%) (Auto) 21 % (24-48) Monocytes (%) (Auto) 6 % (0-9) Eosinophils (%) (Auto) 1 % (0-3) Basophils (%) (Auto) 1 % (0-3) Neutrophils # (Auto) 4.9 x10^3/uL (1.8-7.7) Lymphocytes # (Auto) 1.5 x10^3/uL (1.0-4.8) Monocytes # (Auto) 0.4 x10^3/uL (0.0-1.1) Eosinophils # (Auto) 0.1 x10^3/uL (0.0-0.7) Basophils # (Auto) 0.1 x10^3/uL (0.0-0.2) Sodium Level 143 mmol/L (136-145) Potassium Level 3.6 mmol/L (3.5-5.1) Chloride Level 109 mmol/L (98-107) Carbon Dioxide Level 29 mmol/L (21-32) Anion Gap 5 (6-14) Blood Urea Nitrogen 16 mg/dL (8-26) Creatinine 1.5 mg/dL (0.7-1.3) Estimated GFR (Cockcroft-Gault) 57.0 BUN/Creatinine Ratio 11 (6-20) Glucose Level 66 mg/dL (70-99) Calcium Level 8.2 mg/dL (8.5-10.1) Total Bilirubin 0.3 mg/dL (0.2-1.0) Aspartate Amino Transf (AST/SGOT) 15 U/L (15-37) Alanine Aminotransferase (ALT/SGPT) 15 U/L (16-63) Alkaline Phosphatase 42 U/L (46-116) Total Protein 6.2 g/dL (6.4-8.2) Albumin 2.2 g/dL (3.4-5.0) Albumin/Globulin Ratio 0.6 (1.0-1.7) Urine Collection Type Unknown Urine Color Yellow Urine Clarity Clear Urine pH 5.5 (<5.0-8.0) Urine Specific [place] 1.015 (1.000-1.030) Urine Protein Negative mg/dL (NEG-TRACE) Urine Glucose (UA) Negative mg/dL (NEG) Urine Ketones (Stick) Negative mg/dL (NEG) Urine Blood Moderate (NEG) Urine Nitrite Negative (NEG) Urine Bilirubin Negative (NEG) Urine Urobilinogen Dipstick 0.2 mg/dL (0.2 mg/dL) Urine Leukocyte Esterase Negative (NEG) Urine RBC 11-20 /HPF (0-2) Urine WBC 0 /HPF (0-4) Urine Squamous Epithelial Cells Occ /LPF Urine Bacteria 0 /HPF (0-FEW) Assessment/Plan Assessment/Plan decub ulcer will ask wound care to consult if not resolved with conservative measures, will consider debridement. Thanks for consult! FRANCES MCCAULEY MD Jul 30, 2020 16:27
--- NOTE | 2020-07-30 18:56 | NUR ---
REPORT GIVEN TO NIGHT RN
[2020-07-30] MEDS: QUEtiapine 100 MG TABLET. PO SCH (20:34)
[2020-07-30] MEDS: PSYLLIUM HUSK (SUGAR FREE) 1 PKT PACKET PO SCH (20:34)
[2020-07-31] VITALS (13 sets, daily range): BP systolic 96–148; BP diastolic 56–102
[2020-07-31] MEDS: PIPERACILLIN/TAZOBACTAM 3.375 GM in IV NORMAL SALINE 50ML 50 ML IV SCH ×4 (00:12→17:58)
[2020-07-31] MEDS: HEPARIN for SUB-Q USE 5,000 UNIT/ML VIAL. SQ SCH ×3 (05:51→22:28)
--- NOTE | 2020-07-31 06:12 | PDOC ---
Infectious Disease Note Subjective Subjective Better. No F/C/S/N/v/D/SOA Balderas is comfortable No SOA or cough ROS ROS o/w neg Vital Sign Vital Signs Vital Signs Date Time Temp Pulse Resp B/P (MAP) Pulse Ox O2 Delivery O2 Flow Rate FiO2 07/31/20 06:04 80 12 139/83 (101) 98 Room Air 07/31/20 04:00 97.5 97.5 07/30/20 15:00 4.0 Physical Exam PHYSICAL EXAM CONSTITUTIONAL: He is lying in bed. He is cooperative. He is in no acute distress. He is pleasant. HEENT: Pupils have some questionable early cataracts. He has normal conjunctivae. Oral cavity, pharynx has poor dentition. NECK: Supple, no JVD. LUNGS: Decreased at the bases. HEART: S1, S2, without murmur. ABDOMEN: Distended but less, no guarding, no rebound with some decreased, but positive bowel sounds. : [place]deras in pace EXTREMITIES: Without clubbing, cyanosis. He has 2+ edema. SKIN: Warm to touch without generalized signs of rash. NEUROLOGIC: Nonfocal, answers questions, moves all extremities. PSYCHIATRIC: Affect was pleasant. IV: RIJ - clean Labs Lab Laboratory Tests Test 07/30/20 06:15 07/30/20 09:24 White Blood Count 6.9 x10^3/uL (4.0-11.0) Red Blood Count 2.41 x10^6/uL (4.30-5.70) Hemoglobin 7.1 g/dL (13.0-17.5) Hematocrit 21.2 % (39.0-53.0) Mean Corpuscular Volume 88 fL (79-100) Mean Corpuscular Hemoglobin 29 pg (25-35) Mean Corpuscular Hemoglobin Concent 33 g/dL (31-37) Red Cell Distribution Width 15.2 % (11.5-14.5) Platelet Count 155 x10^3/uL (140-400) Neutrophils (%) (Auto) 71 % (31-73) Lymphocytes (%) (Auto) 21 % (24-48) Monocytes (%) (Auto) 6 % (0-9) Eosinophils (%) (Auto) 1 % (0-3) Basophils (%) (Auto) 1 % (0-3) Neutrophils # (Auto) 4.9 x10^3/uL (1.8-7.7) Lymphocytes # (Auto) 1.5 x10^3/uL (1.0-4.8) Monocytes # (Auto) 0.4 x10^3/uL (0.0-1.1) Eosinophils # (Auto) 0.1 x10^3/uL (0.0-0.7) Basophils # (Auto) 0.1 x10^3/uL (0.0-0.2) Sodium Level 143 mmol/L (136-145) Potassium Level 3.6 mmol/L (3.5-5.1) Chloride Level 109 mmol/L (98-107) Carbon Dioxide Level 29 mmol/L (21-32) Anion Gap 5 (6-14) Blood Urea Nitrogen 16 mg/dL (8-26) Creatinine 1.5 mg/dL (0.7-1.3) Estimated GFR (Cockcroft-Gault) 57.0 BUN/Creatinine Ratio 11 (6-20) Glucose Level 66 mg/dL (70-99) Calcium Level 8.2 mg/dL (8.5-10.1) Total Bilirubin 0.3 mg/dL (0.2-1.0) Aspartate Amino Transf (AST/SGOT) 15 U/L (15-37) Alanine Aminotransferase (ALT/SGPT) 15 U/L (16-63) Alkaline Phosphatase 42 U/L (46-116) Total Protein 6.2 g/dL (6.4-8.2) Albumin 2.2 g/dL (3.4-5.0) Albumin/Globulin Ratio 0.6 (1.0-1.7) Urine Collection Type Unknown Urine Color Yellow Urine Clarity Clear Urine pH 5.5 (<5.0-8.0) Urine Specific [place] 1.015 (1.000-1.030) Urine Protein Negative mg/dL (NEG-TRACE) Urine Glucose (UA) Negative mg/dL (NEG) Urine Ketones (Stick) Negative mg/dL (NEG) Urine Blood Moderate (NEG) Urine Nitrite Negative (NEG) Urine Bilirubin Negative (NEG) Urine Urobilinogen Dipstick 0.2 mg/dL (0.2 mg/dL) Urine Leukocyte Esterase Negative (NEG) Urine RBC 11-20 /HPF (0-2) Urine WBC 0 /HPF (0-4) Urine Squamous Epithelial Cells Occ /LPF Urine Bacteria 0 /HPF (0-FEW) Objective Assessment Sepsis POA - off pressors now - urine clean Leukocyotosis - better PNA Left > right COVID + 07/29 DENIS - better Severe constipation Distended bladder - placed balderas 07/30 Plan Plan of Care D/c Vanc with DENIS Cont Zosyn Add Zyvox 07/30 F/u labs and cults D/w nursing Reviewed [facility] records - no abx ANGELA BRIGHT MD Jul 31, 2020 06:12
[2020-07-31 06:25] LABS: BASO % 1 % (0-3); EOS # 0.1 x10^3/uL (0.0-0.7); EOS % 1 % (0-3); HEMATOCRIT 22.1 % (39.0-53.0); HEMOGLOBIN 7.4 g/dL (13.0-17.5); LYMPH # 1.7 x10^3/uL (1.0-4.8); LYMPH % 27 % (24-48); MEAN CORPUSCULAR HEMOGLOBIN 29 pg (25-35); MEAN CORPUSCULAR HGB CONC 33 g/dL (31-37); MEAN CORPUSCULAR VOLUME 88 fL (79-100); MONO # 0.4 x10^3/uL (0.0-1.1); MONO % 7 % (0-9); NEUT # 4.1 x10^3/uL (1.8-7.7); NEUT % 64 % (31-73); PLATELET COUNT 157 x10^3/uL (140-400); RED BLOOD COUNT 2.51 x10^6/uL (4.30-5.70); RED CELL DISTRIBUTION WIDTH 15.2 % (11.5-14.5); WHITE BLOOD COUNT 6.3 x10^3/uL (4.0-11.0)
[2020-07-31 06:28] LABS: ALBUMIN/GLOBULIN RATIO 0.5 (1.0-1.7); CALCIUM 7.8 mg/dL (8.5-10.1); CREATININE 1.3 mg/dL (0.7-1.3); GFR 67.2; POTASSIUM 3.7 mmol/L (3.5-5.1); TOTAL BILIRUBIN 0.2 mg/dL (0.2-1.0); TOTAL PROTEIN 5.8 g/dL (6.4-8.2)
--- NOTE | 2020-07-31 09:03 | PDOC ---
[employer] PROGRESS NOTE Date of Service DOS: DATE: 07/31/20 TIME: 08:56 Chief Complaint Chief Complaint Assessment/Plan A/P: Septic shock - likely from gluteal ulcer vs pneumonia vs possible COVID 19. Given empiric antibiotics, fluids. RIJ CVC for pressors after failure of appropriate IVF resuscitation Gluteal ulcer - appears unstageable. Patient notably mostly bedbound with possible prior CVA on his CT head. Wound care, frequent turning q2hrs and IV antibiotics DENIS - vasomotor nephropathy from septic shock, will monitor renal function Acute encephalopathy - likely from septic shock, less likely CVA. Neurology recommended MRI, however no focal deficits found. Recommended against tPA Anemia - will check for iron, b12 Lactic acidosis - due to sepsis, will trend. 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 Given proximity of gluteal ulcer may need rectal tube if he begins to have BM FEN - regular diet PPX - heparin FULL CODE Dispo - ICU for septic shock likely from above History of Present Illness History of Present Illness Mr Gustafson is a 64yo M w/ PMHx schizophrenia, h/o heavy ETOH abuse, depression with anxiety, HTN, constipation who presents from his [facility] [employer] [facility] SNF for unre sponsiveness. EMS was contacted as the patient was found unresponsive and shaking 20 minutes prior to their call. He believes its August 2049 does know his name and birthdate. Due to his lack of appropriate response and tremors a code stroke was called and he underwent CT head and CT neck which were negative for acute pathology. Suspected chronic left basal ganglia infarct was noted. CTA negative for occlusion. Notably with temperature 95.1 F rectal. BP 74/47 heart rate 154. In ED he was not responsive to 2 fluid boluses, was started on empiric antibiotics and right IJ CVC was placed for pressor support. After his blood pressure improved he became more responsive and was moving all 4 extremities able to carry on a conversation and follow commands. He complains of weakness and tremors he cannot stop. He notes no loss of appetite no abdominal complaints. He does no chills no fevers. Some slight shortness of breath. No chest pain. He does have problems with urinary retention notes he is trying to urinate when he is unable to. He notes he is relatively bedbound 07/30: Patient evaluated bedside. Afebrile. Hemoglobin dropped from 8.9-7.1, likely delusional. Continue to monitor and transfuse at Hb <7. WBC improved, lactic acid improved. Plan to continue IV fluid until lactic acid clears. Continue antibiotics per ID. 08/10: Patient seen and evaluated bedside. He is COVID-19 positive. He is afebrile, breathing on room air. Blood pressure stable. Will move out of ICU today to our [place] [id number] medical floor. If patient starts required O2 will initiate Decadron and consider remdesivir. Will provide supportive care, zinc, vitamin C, and vitamin D. Continue antibiotics, per ID. Discussed with RN. Vitals/I&O Vitals/I&O: Vital Signs Date Time Temp Pulse Resp B/P (MAP) Pulse Ox O2 Delivery O2 Flow Rate FiO2 07/31/20 07:00 88 14 140/80 (100) 98 Room Air 07/31/20 04:00 97.5 97.5 07/30/20 15:00 4.0 I & O 07/30/20 07/30/20 07/31/20 15:00 23:00 07:00 Intake Total 480 ml 860 ml 50 ml Output Total 650 ml 625 ml 750 ml Balance -170 ml 235 ml -700 ml Physical Exam Physical Exam: CONSTITUTIONAL: He is lying in bed. He is cooperative. He is in no acute distress. He is pleasant. HEENT: Pupils have some questionable early cataracts. He has normal conjunctivae. Oral cavity, pharynx has poor dentition. NECK: Supple, no JVD. LUNGS: Decreased at the bases. HEART: S1, S2, without murmur. ABDOMEN: Distended but less, no guarding, no rebound with some decreased, but positive bowel sounds. : [place] in pace EXTREMITIES: Without clubbing, cyanosis. He has 2+ edema. SKIN: Warm to touch without generalized signs of rash. NEUROLOGIC: Nonfocal, answers questions, moves all extremities. PSYCHIATRIC: Affect was pleasant. IV: RIJ - clean General: Alert, Cooperative, No acute distress Heart: Regular rate Lungs: Clear Abdomen: Soft, No tenderness Extremities: No clubbing, No cyanosis Skin: Other (reviewed wound pictures with large decub ulcer, no obvious necrotic tissue) Labs Labs: Laboratory Tests Test 07/30/20 09:24 07/31/20 06:00 Urine Collection Type Unknown Urine Color Yellow Urine Clarity Clear Urine pH 5.5 (<5.0-8.0) Urine Specific [place] 1.015 (1.000-1.030) Urine Protein Negative mg/dL (NEG-TRACE) Urine Glucose (UA) Negative mg/dL (NEG) Urine Ketones (Stick) Negative mg/dL (NEG) Urine Blood Moderate (NEG) Urine Nitrite Negative (NEG) Urine Bilirubin Negative (NEG) Urine Urobilinogen Dipstick 0.2 mg/dL (0.2 mg/dL) Urine Leukocyte Esterase Negative (NEG) Urine RBC 11-20 /HPF (0-2) Urine WBC 0 /HPF (0-4) Urine Squamous Epithelial Cells Occ /LPF Urine Bacteria 0 /HPF (0-FEW) White Blood Count 6.3 x10^3/uL (4.0-11.0) Red Blood Count 2.51 x10^6/uL (4.30-5.70) Hemoglobin 7.4 g/dL (13.0-17.5) Hematocrit 22.1 % (39.0-53.0) Mean Corpuscular Volume 88 fL (79-100) Mean Corpuscular Hemoglobin 29 pg (25-35) Mean Corpuscular Hemoglobin Concent 33 g/dL (31-37) Red Cell Distribution Width 15.2 % (11.5-14.5) Platelet Count 157 x10^3/uL (140-400) Neutrophils (%) (Auto) 64 % (31-73) Lymphocytes (%) (Auto) 27 % (24-48) Monocytes (%) (Auto) 7 % (0-9) Eosinophils (%) (Auto) 1 % (0-3) Basophils (%) (Auto) 1 % (0-3) Neutrophils # (Auto) 4.1 x10^3/uL (1.8-7.7) Lymphocytes # (Auto) 1.7 x10^3/uL (1.0-4.8) Monocytes # (Auto) 0.4 x10^3/uL (0.0-1.1) Eosinophils # (Auto) 0.1 x10^3/uL (0.0-0.7) Basophils # (Auto) 0.0 x10^3/uL (0.0-0.2) Sodium Level 140 mmol/L (136-145) Potassium Level 3.7 mmol/L (3.5-5.1) Chloride Level 106 mmol/L (98-107) Carbon Dioxide Level 29 mmol/L (21-32) Anion Gap 5 (6-14) Blood Urea Nitrogen 14 mg/dL (8-26) Creatinine 1.3 mg/dL (0.7-1.3) Estimated GFR (Cockcroft-Gault) 67.2 BUN/Creatinine Ratio 11 (6-20) Glucose Level 72 mg/dL (70-99) Calcium Level 7.8 mg/dL (8.5-10.1) Total Bilirubin 0.2 mg/dL (0.2-1.0) Aspartate Amino Transf (AST/SGOT) 14 U/L (15-37) Alanine Aminotransferase (ALT/SGPT) 13 U/L (16-63) Alkaline Phosphatase 45 U/L (46-116) Total Protein 5.8 g/dL (6.4-8.2) Albumin 2.0 g/dL (3.4-5.0) Albumin/Globulin Ratio 0.5 (1.0-1.7) Assessment and Plan Assessmemt and Plan Problems Medical Problems: (1) Pneumonia Status: Acute (2) Septic shock Status: Acute Comment Review of Relevant I have reviewed the following items any (where applicable) has been applied. Medications: Current Medications Medications (Trade) Dose Ordered Sig/Jeffrey Route PRN Reason Start Time Stop Time Status Last Admin Dose Admin Vitamin D (Vitamin D3) 5,000 unit DAILY PO 07/30/20 09:00 07/30/20 07:51 Linezolid/Dextrose 300 ml @ 300 mls/hr Q12HR IV 07/30/20 09:00 07/30/20 20:33 Lactobacillus Rhamnosus (Culturelle) 1 cap BID PO 07/30/20 09:00 07/30/20 20:34 Justifications for Admission Other Justification JACQUELIN OCHOA MD Jul 31, 2020 09:03
[2020-07-31] MEDS: VALPROIC ACID 250 MG CAPSULE. PO SCH ×2 (09:20→22:26)
[2020-07-31] MEDS: CHOLECALCIFEROL (VITAMIN D3) 5,000 UNIT CAPSULE PO SCH (09:20)
[2020-07-31] MEDS: BENZTROPINE MESYLATE 2 MG/2 ML VIAL. IM SCH (09:20)
[2020-07-31] MEDS: HALOPERIDOL 2 MG TABLET. PO SCH ×2 (09:20→22:26)
[2020-07-31] MEDS: LACTOBACILLUS RHAMNOSUS GG 1 CAPSULE. PO SCH ×2 (09:20→22:26)
[2020-07-31] MEDS: ASCORBIC ACID 500 MG TABLET PO SCH ×2 (09:23→22:26)
[2020-07-31] MEDS: ZINC SULFATE 220 MG CAPSULE. PO SCH (09:23)
--- NOTE | 2020-07-31 10:20 | NUR ---
Pt transferred from ICU to room 670. Received report from JAMIE Payne. Pt transported via bed. All belongings left in room.
--- NOTE | 2020-07-31 10:30 | NUR ---
Pt transferred to 670 via bed with belongings. Report given to Yasir AYALA. Zyvox continues to infuse.
[2020-07-31] MEDS ORDERED: BENZTROPINE MESYLATE 1 MG TABLET. PO PRN (11:00)
--- NOTE | 2020-07-31 15:13 | PDOC ---
SURGICAL PROGRESS NOTE DATE: 07/31/20 TIME: 15:12 Subjective Pt without c/o Vital Signs Vital Signs Date Time Temp Pulse Resp B/P (MAP) Pulse Ox O2 Delivery O2 Flow Rate FiO2 07/31/20 11:00 95.6 77 16 133/56 (81) 98 Room Air 95.6 07/30/20 15:00 4.0 I&O Intake and Output 07/31/20 07:00 Intake Total 1390 ml Output Total 2025 ml Balance -635 ml Intake Oral 1040 ml IV Total 350 ml Output Urine Total 2025 ml # Voids 2 General: Alert, No acute distress Abdomen: Soft, No tenderness Labs Laboratory Tests Test 07/29/20 17:27 07/29/20 18:00 07/30/20 06:15 07/30/20 09:24 Coronavirus (PCR) Detected (Not Detected) Lactic Acid Level 2.8 mmol/L (0.4-2.0) White Blood Count 6.9 x10^3/uL (4.0-11.0) Red Blood Count 2.41 x10^6/uL (4.30-5.70) Hemoglobin 7.1 g/dL (13.0-17.5) Hematocrit 21.2 % (39.0-53.0) Mean Corpuscular Volume 88 fL (79-100) Mean Corpuscular Hemoglobin 29 pg (25-35) Mean Corpuscular Hemoglobin Concent 33 g/dL (31-37) Red Cell Distribution Width 15.2 % (11.5-14.5) Platelet Count 155 x10^3/uL (140-400) Neutrophils (%) (Auto) 71 % (31-73) Lymphocytes (%) (Auto) 21 % (24-48) Monocytes (%) (Auto) 6 % (0-9) Eosinophils (%) (Auto) 1 % (0-3) Basophils (%) (Auto) 1 % (0-3) Neutrophils # (Auto) 4.9 x10^3/uL (1.8-7.7) Lymphocytes # (Auto) 1.5 x10^3/uL (1.0-4.8) Monocytes # (Auto) 0.4 x10^3/uL (0.0-1.1) Eosinophils # (Auto) 0.1 x10^3/uL (0.0-0.7) Basophils # (Auto) 0.1 x10^3/uL (0.0-0.2) Sodium Level 143 mmol/L (136-145) Potassium Level 3.6 mmol/L (3.5-5.1) Chloride Level 109 mmol/L (98-107) Carbon Dioxide Level 29 mmol/L (21-32) Anion Gap 5 (6-14) Blood Urea Nitrogen 16 mg/dL (8-26) Creatinine 1.5 mg/dL (0.7-1.3) Estimated GFR (Cockcroft-Gault) 57.0 BUN/Creatinine Ratio 11 (6-20) Glucose Level 66 mg/dL (70-99) Calcium Level 8.2 mg/dL (8.5-10.1) Total Bilirubin 0.3 mg/dL (0.2-1.0) Aspartate Amino Transf (AST/SGOT) 15 U/L (15-37) Alanine Aminotransferase (ALT/SGPT) 15 U/L (16-63) Alkaline Phosphatase 42 U/L (46-116) Total Protein 6.2 g/dL (6.4-8.2) Albumin 2.2 g/dL (3.4-5.0) Albumin/Globulin Ratio 0.6 (1.0-1.7) Urine Collection Type Unknown Urine Color Yellow Urine Clarity Clear Urine pH 5.5 (<5.0-8.0) Urine Specific [place] 1.015 (1.000-1.030) Urine Protein Negative mg/dL (NEG-TRACE) Urine Glucose (UA) Negative mg/dL (NEG) Urine Ketones (Stick) Negative mg/dL (NEG) Urine Blood Moderate (NEG) Urine Nitrite Negative (NEG) Urine Bilirubin Negative (NEG) Urine Urobilinogen Dipstick 0.2 mg/dL (0.2 mg/dL) Urine Leukocyte Esterase Negative (NEG) Urine RBC 11-20 /HPF (0-2) Urine WBC 0 /HPF (0-4) Urine Squamous Epithelial Cells Occ /LPF Urine Bacteria 0 /HPF (0-FEW) Test 07/31/20 06:00 White Blood Count 6.3 x10^3/uL (4.0-11.0) Red Blood Count 2.51 x10^6/uL (4.30-5.70) Hemoglobin 7.4 g/dL (13.0-17.5) Hematocrit 22.1 % (39.0-53.0) Mean Corpuscular Volume 88 fL (79-100) Mean Corpuscular Hemoglobin 29 pg (25-35) Mean Corpuscular Hemoglobin Concent 33 g/dL (31-37) Red Cell Distribution Width 15.2 % (11.5-14.5) Platelet Count 157 x10^3/uL (140-400) Neutrophils (%) (Auto) 64 % (31-73) Lymphocytes (%) (Auto) 27 % (24-48) Monocytes (%) (Auto) 7 % (0-9) Eosinophils (%) (Auto) 1 % (0-3) Basophils (%) (Auto) 1 % (0-3) Neutrophils # (Auto) 4.1 x10^3/uL (1.8-7.7) Lymphocytes # (Auto) 1.7 x10^3/uL (1.0-4.8) Monocytes # (Auto) 0.4 x10^3/uL (0.0-1.1) Eosinophils # (Auto) 0.1 x10^3/uL (0.0-0.7) Basophils # (Auto) 0.0 x10^3/uL (0.0-0.2) Sodium Level 140 mmol/L (136-145) Potassium Level 3.7 mmol/L (3.5-5.1) Chloride Level 106 mmol/L (98-107) Carbon Dioxide Level 29 mmol/L (21-32) Anion Gap 5 (6-14) Blood Urea Nitrogen 14 mg/dL (8-26) Creatinine 1.3 mg/dL (0.7-1.3) Estimated GFR (Cockcroft-Gault) 67.2 BUN/Creatinine Ratio 11 (6-20) Glucose Level 72 mg/dL (70-99) Calcium Level 7.8 mg/dL (8.5-10.1) Total Bilirubin 0.2 mg/dL (0.2-1.0) Aspartate Amino Transf (AST/SGOT) 14 U/L (15-37) Alanine Aminotransferase (ALT/SGPT) 13 U/L (16-63) Alkaline Phosphatase 45 U/L (46-116) Total Protein 5.8 g/dL (6.4-8.2) Albumin 2.0 g/dL (3.4-5.0) Albumin/Globulin Ratio 0.5 (1.0-1.7) Laboratory Tests Test 07/31/20 06:00 White Blood Count 6.3 x10^3/uL (4.0-11.0) Red Blood Count 2.51 x10^6/uL (4.30-5.70) Hemoglobin 7.4 g/dL (13.0-17.5) Hematocrit 22.1 % (39.0-53.0) Mean Corpuscular Volume 88 fL (79-100) Mean Corpuscular Hemoglobin 29 pg (25-35) Mean Corpuscular Hemoglobin Concent 33 g/dL (31-37) Red Cell Distribution Width 15.2 % (11.5-14.5) Platelet Count 157 x10^3/uL (140-400) Neutrophils (%) (Auto) 64 % (31-73) Lymphocytes (%) (Auto) 27 % (24-48) Monocytes (%) (Auto) 7 % (0-9) Eosinophils (%) (Auto) 1 % (0-3) Basophils (%) (Auto) 1 % (0-3) Neutrophils # (Auto) 4.1 x10^3/uL (1.8-7.7) Lymphocytes # (Auto) 1.7 x10^3/uL (1.0-4.8) Monocytes # (Auto) 0.4 x10^3/uL (0.0-1.1) Eosinophils # (Auto) 0.1 x10^3/uL (0.0-0.7) Basophils # (Auto) 0.0 x10^3/uL (0.0-0.2) Sodium Level 140 mmol/L (136-145) Potassium Level 3.7 mmol/L (3.5-5.1) Chloride Level 106 mmol/L (98-107) Carbon Dioxide Level 29 mmol/L (21-32) Anion Gap 5 (6-14) Blood Urea Nitrogen 14 mg/dL (8-26) Creatinine 1.3 mg/dL (0.7-1.3) Estimated GFR (Cockcroft-Gault) 67.2 BUN/Creatinine Ratio 11 (6-20) Glucose Level 72 mg/dL (70-99) Calcium Level 7.8 mg/dL (8.5-10.1) Total Bilirubin 0.2 mg/dL (0.2-1.0) Aspartate Amino Transf (AST/SGOT) 14 U/L (15-37) Alanine Aminotransferase (ALT/SGPT) 13 U/L (16-63) Alkaline Phosphatase 45 U/L (46-116) Total Protein 5.8 g/dL (6.4-8.2) Albumin 2.0 g/dL (3.4-5.0) Albumin/Globulin Ratio 0.5 (1.0-1.7) Problem List Problems Medical Problems: (1) Pneumonia Status: Acute (2) Septic shock Status: Acute Assessment/Plan buttock decub ulcer covid positive cont wound care would recommend against surgical intervention, given covid. Justicifation of Admission Dx: Justifications for Admission: Justification of Admission Dx: N/A FRANCES MCCAULEY MD Jul 31, 2020 15:13
[2020-07-31] MEDS: PSYLLIUM HUSK (SUGAR FREE) 1 PKT PACKET PO SCH (22:26)
[2020-07-31] MEDS: QUEtiapine 100 MG TABLET. PO SCH (22:27)
[2020-08-01] MEDS: PIPERACILLIN/TAZOBACTAM 3.375 GM in IV NORMAL SALINE 50ML 50 ML IV SCH ×5 (00:17→23:28)
[2020-08-01 03:29] VITALS: BP 129/85
[2020-08-01] MEDS: HEPARIN for SUB-Q USE 5,000 UNIT/ML VIAL. SQ SCH ×3 (05:57→20:47)
[2020-08-01 07:00] VITALS: BP 122/74
--- NOTE | 2020-08-01 08:19 | PDOC ---
SURGICAL PROGRESS NOTE DATE: 08/01/20 TIME: 08:18 Subjective not seen, in covid isolation would recommend continued wound care Vital Signs Vital Signs Date Time Temp Pulse Resp B/P (MAP) Pulse Ox O2 Delivery O2 Flow Rate FiO2 08/01/20 07:00 97.4 92 9 122/74 (90) 99 Room Air 97.4 I&O Intake and Output 08/01/20 07:00 Intake Total 1450 ml Output Total 2795 ml Balance -1345 ml Intake Oral 1100 ml IV Total 350 ml Output Urine Total 2795 ml Labs Laboratory Tests Test 07/30/20 09:24 07/31/20 06:00 Urine Collection Type Unknown Urine Color Yellow Urine Clarity Clear Urine pH 5.5 (<5.0-8.0) Urine Specific [place] 1.015 (1.000-1.030) Urine Protein Negative mg/dL (NEG-TRACE) Urine Glucose (UA) Negative mg/dL (NEG) Urine Ketones (Stick) Negative mg/dL (NEG) Urine Blood Moderate (NEG) Urine Nitrite Negative (NEG) Urine Bilirubin Negative (NEG) Urine Urobilinogen Dipstick 0.2 mg/dL (0.2 mg/dL) Urine Leukocyte Esterase Negative (NEG) Urine RBC 11-20 /HPF (0-2) Urine WBC 0 /HPF (0-4) Urine Squamous Epithelial Cells Occ /LPF Urine Bacteria 0 /HPF (0-FEW) White Blood Count 6.3 x10^3/uL (4.0-11.0) Red Blood Count 2.51 x10^6/uL (4.30-5.70) Hemoglobin 7.4 g/dL (13.0-17.5) Hematocrit 22.1 % (39.0-53.0) Mean Corpuscular Volume 88 fL (79-100) Mean Corpuscular Hemoglobin 29 pg (25-35) Mean Corpuscular Hemoglobin Concent 33 g/dL (31-37) Red Cell Distribution Width 15.2 % (11.5-14.5) Platelet Count 157 x10^3/uL (140-400) Neutrophils (%) (Auto) 64 % (31-73) Lymphocytes (%) (Auto) 27 % (24-48) Monocytes (%) (Auto) 7 % (0-9) Eosinophils (%) (Auto) 1 % (0-3) Basophils (%) (Auto) 1 % (0-3) Neutrophils # (Auto) 4.1 x10^3/uL (1.8-7.7) Lymphocytes # (Auto) 1.7 x10^3/uL (1.0-4.8) Monocytes # (Auto) 0.4 x10^3/uL (0.0-1.1) Eosinophils # (Auto) 0.1 x10^3/uL (0.0-0.7) Basophils # (Auto) 0.0 x10^3/uL (0.0-0.2) Sodium Level 140 mmol/L (136-145) Potassium Level 3.7 mmol/L (3.5-5.1) Chloride Level 106 mmol/L (98-107) Carbon Dioxide Level 29 mmol/L (21-32) Anion Gap 5 (6-14) Blood Urea Nitrogen 14 mg/dL (8-26) Creatinine 1.3 mg/dL (0.7-1.3) Estimated GFR (Cockcroft-Gault) 67.2 BUN/Creatinine Ratio 11 (6-20) Glucose Level 72 mg/dL (70-99) Calcium Level 7.8 mg/dL (8.5-10.1) Total Bilirubin 0.2 mg/dL (0.2-1.0) Aspartate Amino Transf (AST/SGOT) 14 U/L (15-37) Alanine Aminotransferase (ALT/SGPT) 13 U/L (16-63) Alkaline Phosphatase 45 U/L (46-116) Total Protein 5.8 g/dL (6.4-8.2) Albumin 2.0 g/dL (3.4-5.0) Albumin/Globulin Ratio 0.5 (1.0-1.7) Problem List Problems Medical Problems: (1) Pneumonia Status: Acute (2) Septic shock Status: Acute Justicifation of Admission Dx: Justifications for Admission: Justification of Admission Dx: N/A ORSIBEL [employer]CH [employer] Aug 01, 2020 08:19
--- NOTE | 2020-08-01 08:33 | PDOC ---
PROGRESS NOTES Date of Service: DATE: 08/01/20 TIME: 08:33 Chief Complaint Chief Complaint Assessment/Plan Septic shock - likely from gluteal ulcer vs pneumonia COVID 19. Given empiric a ntibiotics, fluids. RIJ CVC for pressors after failure of appropriate IVF resuscitation Gluteal ulcer - appears unstageable. Patient notably mostly bedbound with possible prior CVA on his CT head. Wound care, frequent turning q2hrs and IV antibiotics DENIS - vasomotor nephropathy from septic shock, will monitor renal function Acute encephalopathy - likely from septic shock, less likely CVA. Neurology recommended MRI, however no focal deficits found. Recommended against tPA Anemia - will check for iron, b12 Lactic acidosis - due to sepsis, will trend. 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 Given proximity of gluteal ulcer may need rectal tube if he begins to have BM FEN - regular diet PPX - heparin FULL CODE Dispo - 6th floor for septic shock likely from above Cont Zosyn/Zyvox iv F/u labs and cults cont supportive care D/W RN History of Present Illness History of Present Illness Mr Wagoner is a 64yo M w/ PMHx schizophrenia, h/o heavy ETOH abuse, depression with anxiety, HTN, constipation who [facility]. EMS was contacted as the patient was found unresponsive and shaking 20 minutes prior to their call. He believes its August 20[birth year] does know his name and birthdate. Due to his lack of appropriate response and tremors a code stroke was called and he underwent CT head and CT neck which were negative for acute pathology. Suspected chronic left basal ganglia infarct was noted. CTA negative for occlusion. Notably with temperature 95.1 F rectal. BP 74/47 heart rate 154. In ED he was not responsive to 2 fluid boluses, was started on empiric antibiotics and right IJ CVC was placed for pressor support. After his blood pressure improved he became more responsive and was moving all 4 extremities able to carry on a c onversation and follow commands. He complains of weakness and tremors he cannot stop. He notes no loss of appetite no abdominal complaints. He does no chills no fevers. Some slight shortness of breath. No chest pain. He does have problems with urinary retention notes he is trying to urinate when he is unable to. He notes he is relatively bedbound 07/30: Patient evaluated bedside. Afebrile. Hemoglobin dropped from 8.9-7.1, likely delusional. Continue to monitor and transfuse at Hb <7. WBC improved, lactic acid improved. Plan to continue IV fluid until lactic acid clears. Continue antibiotics per ID. 08/10: Patient seen and evaluated bedside. He is COVID-19 positive. He is afebrile, breathing on room air. Blood pressure stable. Will move out of ICU today to our [place] [id number] medical floor. If patient starts required O2 will initiate Decadron and consider remdesivir. Will provide supportive care, zinc, vitamin C, and vitamin D. Continue antibiotics, per ID. Discussed with RN. Vitals Vitals Vital Signs Date Time Temp Pulse Resp B/P (MAP) Pulse Ox O2 Delivery O2 Flow Rate FiO2 08/01/20 07:00 97.4 92 9 122/74 (90) 99 Room Air 97.4 Physical Exam Physical Exam CONSTITUTIONAL: He is lying in bed. He is cooperative. He is in no acute distress. He is pleasant. HEENT: Pupils have some questionable early cataracts. He has normal conjunctivae. Oral cavity, pharynx has poor dentition. NECK: Supple, no JVD. LUNGS: Decreased at the bases. HEART: S1, S2, without murmur. ABDOMEN: Distended but less, no guarding, no rebound with some decreased, but positive bowel sounds. : Terrazas in pace EXTREMITIES: Without clubbing, cyanosis. He has 2+ edema. SKIN: Warm to touch without generalized signs of rash. NEUROLOGIC: Nonfocal, answers questions, moves all extremities. PSYCHIATRIC: Affect was pleasant. IV: RIJ - clean General: Alert, No acute distress Heart: Regular rate Lungs: Clear Abdomen: Soft, No tenderness Extremities: No clubbing, No cyanosis Skin: Other (reviewed wound pictures with large decub ulcer, no obvious necrotic tissue) Labs LABS PATIENT: EDMUND WAGONER ACCOUNT: [id number] : 1955 LOCATION: [address] [place] [address] AGE: 64 SEX: M EXAM STATUS: ADM IN ORD. PHYSICIAN: FELIX RODRIGUEZ MD REASON: HYPOTENSION PROCEDURE: CT CHEST ABD PELVIS W/CONTRAST ADDENDUM #1 Addendum: This report is linked to a CT of the chest, abdomen and pelvis performed on the same date. The CT findings for the the chest, abdomen and pelvis will be included on this addendum. EXAM: Chest, abdomen and pelvis CT with intravenous contrast. HISTORY: Left-sided weakness. TECHNIQUE: Computed tomographic images of the chest, abdomen and pelvis were obtained with a previous contrast. *One or more of the following individualized dose reduction techniques were utilized for this examination: 1. Automated exposure control. 2. Adjustment of the mA and/or kV according to patient size. 3. Use of iterative reconstruction technique. FINDINGS: Chest: There are small left greater than right pleural effusions. There is partially consolidated left lower lobe pneumonia and there is right lower lobe interstitial infiltrate. The heart is normal in size. There is no pneumothorax. The aorta is normal in caliber. There are prominent mediastinal and hilar lymph nodes which are likely reactive. There are few calcified granulomas. There is a tiny hiatal hernia. There is gynecomastia. There is no acute or suspicious osseous finding. Abdomen and pelvis: No hepatic lesion is seen. The gallbladder, pancreas, spleen and adrenal glands are unremarkable. There is a 2.8 cm simple cyst within the upper pole the left kidney. The urinary bladder is distended. There is no appendicitis. There is a large amount of formed stool throughout the colon and rectal vault. The aorta is normal in caliber. There is no lymphadenopathy. There is no suspicious or acute osseous finding. There is degenerative change primarily the lumbosacral junction. IMPRESSION: 1. Partially consolidated left lower lobe pneumonia and right lower lobe interstitial infiltrate superimposed on small left greater the right pleural effusions. 2. Mediastinal and hilar lymphadenopathy, likely reactive given the aforementioned findings. 3. Large amount of stool throughout the colon and rectal vault. Correlate for constipation. 4. Simple left renal cyst. Follow up is not routinely recommended for simple cysts. 5. Tiny hiatal hernia. 6. Distended urinary bladder. Electronically signed by: Myra Garibay MD (07/29/2020 5:34 PM) [id number] ORIGINAL REPORT EXAM: CT angiogram of the head and neck with intravenous contrast. ASON: central line placement PROCEDURE: CHEST AP ONLY EXAM: Chest, single view. HISTORY: Central line placement. COMPARISON: CT dated 07/29/2020. FINDINGS: A frontal view of the chest obtained. There is small left greater than right pleural effusions and there is left greater than right lower lobe interstitial infiltrate. There is an enlarged cardiac silhouette. There is a right internal jugular catheter with the tip in the superior vena cava. There is no pneumothorax. There are calcified granulomas. There are prominent air-filled loops of bowel within the upper abdomen. IMPRESSION: 1. Small left greater than right pleural effusions with left greater than right lower lobe infiltrate. 2. Prominent cardiac silhouette. 3. Right internal jugular catheter with the tip in the superior vena cava. There is no pneumothorax. Electronically signed by: Myra Garibay MD (07/29/2020 4:20 PM) [id number] DICTATED and SIGNED BY: MYRA GARIBAY MD DATE: 07/29/20 [id number] Assessment and Plan Assessmemt and Plan Problems Medical Problems: (1) Pneumonia Status: Acute (2) Septic shock Status: Acute Comment Review of Relevant I have reviewed the following items any (where applicable) has been applied. Labs Laboratory Tests Test 07/30/20 09:24 07/31/20 06:00 Urine Collection Type Unknown Urine Color Yellow Urine Clarity Clear Urine pH 5.5 (<5.0-8.0) Urine Specific [place] 1.015 (1.000-1.030) Urine Protein Negative mg/dL (NEG-TRACE) Urine Glucose (UA) Negative mg/dL (NEG) Urine Ketones (Stick) Negative mg/dL (NEG) Urine Blood Moderate (NEG) Urine Nitrite Negative (NEG) Urine Bilirubin Negative (NEG) Urine Urobilinogen Dipstick 0.2 mg/dL (0.2 mg/dL) Urine Leukocyte Esterase Negative (NEG) Urine RBC 11-20 /HPF (0-2) Urine WBC 0 /HPF (0-4) Urine Squamous Epithelial Cells Occ /LPF Urine Bacteria 0 /HPF (0-FEW) White Blood Count 6.3 x10^3/uL (4.0-11.0) Red Blood Count 2.51 x10^6/uL (4.30-5.70) Hemoglobin 7.4 g/dL (13.0-17.5) Hematocrit 22.1 % (39.0-53.0) Mean Corpuscular Volume 88 fL (79-100) Mean Corpuscular Hemoglobin 29 pg (25-35) Mean Corpuscular Hemoglobin Concent 33 g/dL (31-37) Red Cell Distribution Width 15.2 % (11.5-14.5) Platelet Count 157 x10^3/uL (140-400) Neutrophils (%) (Auto) 64 % (31-73) Lymphocytes (%) (Auto) 27 % (24-48) Monocytes (%) (Auto) 7 % (0-9) Eosinophils (%) (Auto) 1 % (0-3) Basophils (%) (Auto) 1 % (0-3) Neutrophils # (Auto) 4.1 x10^3/uL (1.8-7.7) Lymphocytes # (Auto) 1.7 x10^3/uL (1.0-4.8) Monocytes # (Auto) 0.4 x10^3/uL (0.0-1.1) Eosinophils # (Auto) 0.1 x10^3/uL (0.0-0.7) Basophils # (Auto) 0.0 x10^3/uL (0.0-0.2) Sodium Level 140 mmol/L (136-145) Potassium Level 3.7 mmol/L (3.5-5.1) Chloride Level 106 mmol/L (98-107) Carbon Dioxide Level 29 mmol/L (21-32) Anion Gap 5 (6-14) Blood Urea Nitrogen 14 mg/dL (8-26) Creatinine 1.3 mg/dL (0.7-1.3) Estimated GFR (Cockcroft-Gault) 67.2 BUN/Creatinine Ratio 11 (6-20) Glucose Level 72 mg/dL (70-99) Calcium Level 7.8 mg/dL (8.5-10.1) Total Bilirubin 0.2 mg/dL (0.2-1.0) Aspartate Amino Transf (AST/SGOT) 14 U/L (15-37) Alanine Aminotransferase (ALT/SGPT) 13 U/L (16-63) Alkaline Phosphatase 45 U/L (46-116) Total Protein 5.8 g/dL (6.4-8.2) Albumin 2.0 g/dL (3.4-5.0) Albumin/Globulin Ratio 0.5 (1.0-1.7) Medications Current Medications Iohexol (Omnipaque 300 Mg/ml) 75 ml 1X ONCE IV Last administered on 07/29/20at 14:08; Start 07/29/20 at 13:45; Stop 07/29/20 at 13:46; Status DC Info (CONTRAST GIVEN -- Rx MONITORING) 1 each PRN DAILY PRN MC SEE COMMENTS; Start 07/29/20 at 13:45; Stop 07/31/20 at 13:44; Status DC Sodium Chloride 1,000 ml @ 1,000 mls/hr 1X ONCE IV Last administered on 07/29/20at 13:53; Start 07/29/20 at 13:45; Stop 07/29/20 at 14:44; Status DC Norepinephrine Bitartrate 8 mg/ Dextrose 258 ml @ 15.48 mls/ hr 1X ONCE IV Last administered on 07/29/20at 14:31; Start 07/29/20 at 14:15; Stop 07/30/20 at 06:54; Status DC Piperacillin Sod/ Tazobactam Sod (Zosyn Per Pharmacy) 1 each PRN DAILY PRN MC SEE COMMENTS; Start 07/29/20 at 14:30 Piperacillin Sod/ Tazobactam Sod 3.375 gm/Sodium Chloride 50 ml @ 100 mls/hr 1X ONCE IV Last administered on 07/29/20at 14:39; Start 07/29/20 at 14:30; Stop 07/29/20 at 14:59; Status DC Vancomycin HCl (Vanco Per Pharmacy) 1 each PRN DAILY PRN MC SEE COMMENTS Last administered on 07/29/20at 17:00; Start 07/29/20 at 15:00; Stop 07/29/20 at 18:39; Status DC Sodium Chloride 1,000 ml @ 1,000 mls/hr 1X ONCE IV Last administered on 07/29/20at 15:06; Start 07/29/20 at 15:00; Stop 07/29/20 at 15:59; Status DC Sodium Chloride 1,000 ml @ 1,000 mls/hr 1X ONCE IV Last administered on 07/29/20at 17:33; Start 07/29/20 at 15:00; Stop 07/29/20 at 15:59; Status DC Sodium Chloride (NORMAL SALINE FLUSH for STERILE FIELD) 10 ml STK-MED ONCE .ROUTE ; Start 07/29/20 at 15:08; Stop 07/29/20 at 15:08; Status DC Vancomycin HCl 2 gm/Sodium Chloride 500 ml @ 250 mls/hr 1X ONCE IV Last administered on 07/29/20at 16:03; Start 07/29/20 at 15:30; Stop 07/29/20 at 17:29; Status DC Sodium Chloride 1,000 ml @ 1,000 mls/hr 1X ONCE IV ; Start 07/29/20 at 16:15; Stop 07/29/20 at 17:14; Status DC Sodium Chloride 1,000 ml @ 100 mls/hr Q10H IV Last administered on 07/30/20at 05:35; Start 07/29/20 at 16:45; Stop 07/29/20 at 20:44; Status DC Piperacillin Sod/ Tazobactam Sod 3.375 gm/Sodium Chloride 50 ml @ 100 mls/hr Q6HRS IV Last administered on 08/01/20at 05:57; Start 07/29/20 at 19:30 Vancomycin HCl 1.25 gm/Sodium Chloride 250 ml @ 167 mls/hr Q24H IV ; Start 07/30/20 at 16:00; Stop 07/30/20 at 06:46; Status DC Vancomycin HCl (Vancomycin Trough Level) 1 each 1X ONCE MC ; Start 07/31/20 at 15:30; Stop 07/31/20 at 15:31; Status Cancel Vancomycin HCl (Vanco Per Pharmacy) 1 each PRN DAILY PRN MC SEE COMMENTS; Start 07/29/20 at 18:45; Stop 07/30/20 at 06:46; Status DC Albumin Human 500 ml @ 125 mls/hr 1X ONCE IV Last administered on 07/29/20at 21:37; Start 07/29/20 at 18:45; Stop 07/29/20 at 22:44; Status DC Heparin Sodium (Porcine) (Heparin Sodium) 5,000 unit Q8HRS SQ Last administered on 08/01/20at 05:57; Start 07/29/20 at 22:00 Ondansetron HCl (Zofran) 4 mg PRN Q4HRS PRN IV NAUSEA/VOMITING; Start 07/29/20 at 20:45 Acetaminophen (Tylenol) 650 mg PRN Q4HRS PRN PO TEMP OVER 100.4F OR MILD PAIN Last administered on 07/31/20at 15:48; Start 07/29/20 at 20:45 Docusate Sodium (Colace) 100 mg PRN BID PRN PO HARD STOOLS; Start 07/29/20 at 20:45 Psyllium Hydrophilic Mucilloid (Metamucil Fiber Packet) 1 pkt QHS PO Last administered on 07/31/20at 22:26; Start 07/29/20 at 21:00 Olanzapine (ZyPREXA ZYDIS) 5 mg PRN BID PRN PO ANXIETY / AGITATION; Start 07/29/20 at 20:45 Benztropine Mesylate (Cogentin) 1 mg PRN BID PRN IM EXTRAPYRAMIDAL SIDE EFFECTS; Start 07/29/20 at 21:00; Stop 07/29/20 at 21:13; Status DC Diphenhydramine HCl (Benadryl) 25 mg PRN Q6HRS PRN IVP SHIVERING; Start 07/29/20 at 21:00 Haloperidol (Haldol) 2 mg BID PO Last administered on 07/31/20at 22:26; Start 07/29/20 at 21:00 Quetiapine Fumarate (SEROquel) 400 mg QHS PO Last administered on 07/31/20at 22:27; Start 07/29/20 at 21:15 Valproic Acid (Depakene) 250 mg BID PO Last administered on 07/31/20at 22:26; Start 07/29/20 at 21:15 Benztropine Mesylate (Cogentin) 1 mg BID IM Last administered on 07/31/20at 09:20; Start 07/29/20 at 21:15; Stop 07/31/20 at 10:48; Status DC Vitamin D (Vitamin D3) 5,000 unit DAILY PO Last administered on 07/31/20at 09:20; Start 07/30/20 at 09:00 Linezolid/Dextrose 300 ml @ 300 mls/hr Q12HR IV Last administered on 07/31/20at 22:29; Start 07/30/20 at 09:00 Lactobacillus Rhamnosus (Culturelle) 1 cap BID PO Last administered on 07/31/20at 22:26; Start 07/30/20 at 09:00 Ascorbic Acid (Vitamin C) 500 mg BID PO Last administered on 07/31/20at 22:26; Start 07/31/20 at 09:00; Stop 08/14/20 at 08:59 Zinc Sulfate (Orazinc) 440 mg DAILY PO Last administered on 07/31/20at 09:23; Start 07/31/20 at 09:00; Stop 08/15/20 at 08:59 Benztropine Mesylate (Cogentin) 1 mg PRN BID PRN PO EXTRAPYRAMIDAL SIDE EFFECTS; Start 07/31/20 at 11:00 Active Scripts Active Levofloxacin 500 Mg Tablet 1 Tab PO DAILY Vitals/I & O Vital Sign - Last 24 Hours 07/31/20 07/31/20 07/31/20 07/31/20 10:20 11:00 15:00 19:00 Temp 95.6 97.0 97.4 95.6 97.0 97.4 Pulse 77 101 83 Resp 16 18 16 B/P (MAP) 133/56 (81) 136/65 (88) 148/102 (117) Pulse Ox 98 93 99 O2 Delivery Room Air Room Air Room Air Room Air 07/31/20 07/31/20 08/01/20 08/01/20 20:00 23:40 03:29 07:00 Temp 97.9 97.8 97.4 97.9 97.8 97.4 Pulse 85 89 92 Resp 10 15 9 B/P (MAP) 122/77 (92) 129/85 (100) 122/74 (90) Pulse Ox 100 99 99 O2 Delivery Room Air Room Air Room Air Room Air Intake and Output 07/31/20 07/31/20 08/01/20 15:00 23:00 07:00 Intake Total 1330 ml 0 ml 120 ml Output Total 295 ml 1300 ml 1200 ml Balance 1035 ml -1300 ml -1080 ml Justicifation of Admission Dx: Justifications for Admission: Justification of Admission Dx: N/A ITZEL MORALES MD Aug 01, 2020 08:33
--- NOTE | 2020-08-01 09:22 | PDOC ---
Infectious Disease Note Subjective: Subjective pt is resting quietly no new issues per rn remains on RA Vital Signs: Vital Signs Vital Signs Date Time Temp Pulse Resp B/P (MAP) Pulse Ox O2 Delivery O2 Flow Rate FiO2 08/01/20 07:00 97.4 92 9 122/74 (90) 99 Room Air 97.4 Physical Exam: PHYSICAL EXAM GEN: sleepy but arousable male in nad HEENT: atraumatic, normocepalic ,normal conjunctivae. Oral cavity, pharynx has poor dentition. NECK: Supple, no JVD. LUNGS: Decreased at the bases. HEART: S1, S2, without murmur. ABDOMEN: nondistended,no guarding, no rebound with some decreased, but positive bowel sounds. : Balderas in place EXTREMITIES: Without clubbing, cyanosis.trace edema SKIN: Warm to touch without generalized signs of rash. NEUROLOGIC: Nonfocal, answers questions, moves all extremities. PSYCHIATRIC: Affect was pleasant. IV: RIJ - clean Medications: Inpatient Meds: Current Medications Medications (Trade) Dose Ordered Sig/Jeffrey Start Time Stop Time Status Last Admin Dose Admin Acetaminophen (Tylenol) 650 mg PRN Q4HRS PRN 07/29/20 20:45 07/31/20 15:48 650 MG Albumin Human 500 ml @ 125 mls/hr 1X ONCE 07/29/20 18:45 07/29/20 22:44 DC 07/29/20 21:37 125 MLS/HR Ascorbic Acid (Vitamin C) 500 mg BID 07/31/20 09:00 08/14/20 08:59 07/31/20 22:26 500 MG Benztropine Mesylate (Cogentin) 1 mg PRN BID PRN 07/31/20 11:00 Diphenhydramine HCl (Benadryl) 25 mg PRN Q6HRS PRN 07/29/20 21:00 Docusate Sodium (Colace) 100 mg PRN BID PRN 07/29/20 20:45 Haloperidol (Haldol) 2 mg BID 07/29/20 21:00 07/31/20 22:26 2 MG Heparin Sodium (Porcine) (Heparin Sodium) 5,000 unit Q8HRS 07/29/20 22:00 08/01/20 05:57 5,000 UNIT Info (CONTRAST GIVEN -- Rx MONITORING) 1 each PRN DAILY PRN 07/29/20 13:45 07/31/20 13:44 DC Iohexol (Omnipaque 300 Mg/ml) 75 ml 1X ONCE 07/29/20 13:45 07/29/20 13:46 DC 07/29/20 14:08 75 ML Lactobacillus Rhamnosus (Culturelle) 1 cap BID 07/30/20 09:00 07/31/20 22:26 1 CAP Linezolid/Dextrose 300 ml @ 300 mls/hr Q12HR 07/30/20 09:00 07/31/20 22:29 300 MLS/HR Norepinephrine Bitartrate 8 mg/ Dextrose 258 ml @ 15.48 mls/ hr 1X ONCE 07/29/20 14:15 07/30/20 06:54 DC 07/29/20 14:31 16.5 MLS/HR Olanzapine (ZyPREXA ZYDIS) 5 mg PRN BID PRN 07/29/20 20:45 Ondansetron HCl (Zofran) 4 mg PRN Q4HRS PRN 07/29/20 20:45 Piperacillin Sod/ Tazobactam Sod (Zosyn Per Pharmacy) 1 each PRN DAILY PRN 07/29/20 14:30 Piperacillin Sod/ Tazobactam Sod 3.375 gm/Sodium Chloride 50 ml @ 100 mls/hr Q6HRS 07/29/20 19:30 08/01/20 05:57 100 MLS/HR Psyllium Hydrophilic Mucilloid (Metamucil Fiber Packet) 1 pkt QHS 07/29/20 21:00 07/31/20 22:26 1 PKT Quetiapine Fumarate (SEROquel) 400 mg QHS 07/29/20 21:15 07/31/20 22:27 400 MG Sodium Chloride 1,000 ml @ 100 mls/hr Q10H 07/29/20 16:45 07/29/20 20:44 DC 07/30/20 05:35 100 MLS/HR Sodium Chloride (NORMAL SALINE FLUSH for STERILE FIELD) 10 ml STK-MED ONCE 07/29/20 15:08 07/29/20 15:08 DC Valproic Acid (Depakene) 250 mg BID 07/29/20 21:15 07/31/20 22:26 250 MG Vancomycin HCl (Vanco Per Pharmacy) 1 each PRN DAILY PRN 07/29/20 18:45 07/30/20 06:46 DC Vancomycin HCl (Vancomycin Trough Level) 1 each 1X ONCE 07/31/20 15:30 07/31/20 15:31 Cancel Vancomycin HCl 1.25 gm/Sodium Chloride 250 ml @ 167 mls/hr Q24H 07/30/20 16:00 07/30/20 06:46 DC Vancomycin HCl 2 gm/Sodium Chloride 500 ml @ 250 mls/hr 1X ONCE 07/29/20 15:30 07/29/20 17:29 DC 07/29/20 16:03 250 MLS/HR Vitamin D (Vitamin D3) 5,000 unit DAILY 07/30/20 09:00 07/31/20 09:20 5,000 UNIT Zinc Sulfate (Orazinc) 440 mg DAILY 07/31/20 09:00 08/15/20 08:59 07/31/20 09:23 440 MG Objective: Assessment: Sepsis POA resolved Leukocyotosis - better PNA Left > right COVID + 07/29 DENIS - better Severe constipation Distended bladder - placed balderas 07/30 ;UC negative Plan: Plan of Care Cont Zosyn/Zyvox F/u labs and cults cont supportive care D/W TRINI FONTANEZ MD Aug 01, 2020 09:22
[2020-08-01] MEDS: LACTOBACILLUS RHAMNOSUS GG 1 CAPSULE. PO SCH ×2 (09:44→20:45)
[2020-08-01] MEDS: VALPROIC ACID 250 MG CAPSULE. PO SCH ×2 (09:44→20:45)
[2020-08-01] MEDS: CHOLECALCIFEROL (VITAMIN D3) 5,000 UNIT CAPSULE PO SCH (09:44)
[2020-08-01] MEDS: ZINC SULFATE 220 MG CAPSULE. PO SCH (09:44)
[2020-08-01] MEDS: ASCORBIC ACID 500 MG TABLET PO SCH ×2 (09:44→20:45)
[2020-08-01] MEDS: HALOPERIDOL 2 MG TABLET. PO SCH ×2 (09:44→20:45)
[2020-08-01 11:00] VITALS: BP 143/82
[2020-08-01 15:00] VITALS: BP 139/82
--- NOTE | 2020-08-01 15:00 | NUR ---
Wound Care Wound Type/Assessment: patient see per wound care consult, patient seen with MARVA Reis. see wound assessment. patient has an unstageable pressure ulcer to the coccyx, the wound was cleaned, and redressed with recommendations of Hydrofera blue with a foam dressing over. Treatment Recommendations/Plan: Recommendations of cleansing the wound then apply Hydrofera blue with a foam over, change every other day. Offloading surface/device: Ordered a P500 bed. patient needs to be turning every 2 hours. patient turned to the right side at this time with a wedge. heels placed in an off-loading position with pillows. patient has hard darkened dry callous to bilateral heels. Recommended Referrals/Tests: Recommendations of debridement to unstageable coccyx wound. Discharge Recommendations for dressings: Recommendations of continuing with the POC, wound care will follow up on Saturday08/03/2020. Notified JAMIE Watson about the POC.
--- NOTE | 2020-08-01 15:40 | PDOC2 ---
Chief Complaint: Chief Complaint: Unstageable coccyx wound Vital Signs: Vital Signs: Vital Signs Date Time Temp Pulse Resp B/P (MAP) Pulse Ox O2 Delivery O2 Flow Rate FiO2 07/31/20 07:00 88 14 140/80 (100) 98 Room Air 07/31/20 08:00 97.5 97.5 Vital Signs Date Time Temp Pulse Resp B/P (MAP) Pulse Ox O2 Delivery O2 Flow Rate FiO2 08/01/20 11:00 97.6 96 18 143/82 (102) 98 Room Air 97.6 Allergies: Allergies: Allergies Coded Allergies Type Severity Reaction Last Updated Verified No Known Drug Allergies 01/16/19 No Medications: Home Meds Active Scripts Levofloxacin (LEVOFLOXACIN) 500 Mg Tablet, 1 TAB PO DAILY, #7 TAB Prov:CHANEL ULGO MD 07/22/20 PCP: PCP: Dr Richardson Pain: Pain Location: Other (Denies pain at this time) Date of Onset Pt admitted to [facility] following syncopal episode at [facility] facility. Pt admitted for septic shock and DENIS with Covid 19 positive status. Pt admitted with coccyx pressure wound with nonviable tissue. Pt states wound has been present for "awhile." Pt denies painful symptoms of the wound. Pt requires assistance with ADL's with the exception of eating. Pt with Terrazas catheter placed 07/30 d/t bladder distention, UC negative. Pt is incontinent of stool and wears adult briefs. PMH schizophrenia, h/o heavy ETOH abuse, depression with anxiety, HTN, constipation PSH Pt resident at [facility] Review of Systems: Patient denies painful symptoms at this time. Patient states that he has been eating and drinking well without nausea, vomiting or diarrhea. Patient unsure how long the wound on his coccyx has been present. Patient states that he is reliant on others for ADLs with the exception of eating. Patient denies headache, flulike symptoms, fever. Physical Exam Patient awake and alert 64-year-old -[place] male in no apparent distress. Patient pleasant in conversation. Vital signs are stable at this time. Patient is on room air not requiring supplemental oxygen. Respirations are even and unlabored. Abdomen is soft, nondistended and nontender to palpation. Skin is warm, dry and pink. Pt with Terrazas catheter, draining light yellow urine without sediment. The coccyx presents with a 5.6 x 8.8 cm ulceration. Wound bed is 90% slough centrally with 10% granulation at edges. Edges are attached and nonrolling. Surrounding tissue is without erythema or edema. There is no odor following cleansing. Moderate serosanguineous drainage noted on previous dressing. A/P COVID-19 positive with septic shock, DENIS - Pt followed by Hospitalist and ID Unstageable coccyx ulcer - Surgery consulted, not surgical candidate at this time d/t positive Covid Status - Cleanse and pat dry. Apply skin prep to surrounding tissue. Hydrofera Blue to wound bed to encourage Autolytic debridement. Cover with Sacral wound dressing. - Will plan on reevaluation on 08/03, if nonviable tissue worsens will consider Veraflow Vac following bedside debridement - Pt on KIT mattress with foam wedge in room - Offloading cushion for w/c and recliner - Dietary consulting to ensure pt with adequate protein intake for optimal wound healing SCOOTER CORTEZ SENIOR DEVELOPER Aug 01, 2020 15:40
--- NOTE | 2020-08-01 17:23 | NUR ---
REYNALDO following for discharge planning. REYNALDO spoke with RN and reviewed chart. Pt currently on room air, regular diet, IV Zosyn, COVID positive. Discharge plan is return to [facility] when stable. SW following. Addendum: 08/02/20 at 1549 by LATASHA JACOBS Pt identified as BPCI. No further needs from this SW. Discharge planners to follow.
[2020-08-01 19:00] VITALS: BP 134/90
[2020-08-01] MEDS: PSYLLIUM HUSK (SUGAR FREE) 1 PKT PACKET PO SCH (20:44)
[2020-08-01] MEDS: QUEtiapine 100 MG TABLET. PO SCH (20:45)
[2020-08-01 23:00] VITALS: BP 138/84
[2020-08-02 03:20] VITALS: BP 144/81
[2020-08-02] MEDS: PIPERACILLIN/TAZOBACTAM 3.375 GM in IV NORMAL SALINE 50ML 50 ML IV SCH ×2 (05:31→12:34)
[2020-08-02] MEDS: HEPARIN for SUB-Q USE 5,000 UNIT/ML VIAL. SQ SCH ×3 (05:33→20:54)
[2020-08-02 05:51] LABS: BASO # 0.2 x10^3/uL (0.0-0.2); BASO % 3 % (0-3); EOS # 0.1 x10^3/uL (0.0-0.7); EOS % 2 % (0-3); HEMOGLOBIN 7.7 g/dL (13.0-17.5); LYMPH # 2.4 x10^3/uL (1.0-4.8); LYMPH % 32 % (24-48); MEAN CORPUSCULAR HEMOGLOBIN 30 pg (25-35); MEAN CORPUSCULAR HGB CONC 33 g/dL (31-37); MEAN CORPUSCULAR VOLUME 89 fL (79-100); MONO # 0.5 x10^3/uL (0.0-1.1); MONO % 7 % (0-9); NEUT # 4.3 x10^3/uL (1.8-7.7); NEUT % 57 % (31-73); PLATELET COUNT 182 x10^3/uL (140-400); RED BLOOD COUNT 2.59 x10^6/uL (4.30-5.70); RED CELL DISTRIBUTION WIDTH 15.2 % (11.5-14.5); WHITE BLOOD COUNT 7.5 x10^3/uL (4.0-11.0)
[2020-08-02 06:08] LABS: ALBUMIN/GLOBULIN RATIO 0.5 (1.0-1.7); CALCIUM 8.4 mg/dL (8.5-10.1); CREATININE 1.3 mg/dL (0.7-1.3); GFR 67.2; POTASSIUM 3.7 mmol/L (3.5-5.1); TOTAL BILIRUBIN 0.3 mg/dL (0.2-1.0); TOTAL PROTEIN 6.1 g/dL (6.4-8.2)
[2020-08-02 07:19] VITALS: BP 134/86
[2020-08-02] MEDS: HALOPERIDOL 2 MG TABLET. PO SCH ×2 (09:16→20:54)
[2020-08-02] MEDS: CHOLECALCIFEROL (VITAMIN D3) 5,000 UNIT CAPSULE PO SCH (09:17)
[2020-08-02] MEDS: LACTOBACILLUS RHAMNOSUS GG 1 CAPSULE. PO SCH ×2 (09:17→20:54)
[2020-08-02] MEDS: ASCORBIC ACID 500 MG TABLET PO SCH ×2 (09:19→20:54)
[2020-08-02] MEDS: VALPROIC ACID 250 MG CAPSULE. PO SCH ×2 (09:19→20:54)
[2020-08-02] MEDS: ZINC SULFATE 220 MG CAPSULE. PO SCH (09:23)
[2020-08-02 11:14] VITALS: BP 123/93
--- NOTE | 2020-08-02 11:27 | PDOC ---
PROGRESS NOTES Date of Service: DATE: 08/02/20 TIME: 11:27 Chief Complaint Chief Complaint IMPRESSION Septic shock - likely from gluteal ulcer vs pneumonia COVID 19. Given empiric antibiotics, fluids. RIJ CVC for pressors after failure of appropriate IVF resuscitation Small left pleural effusion and left lower lobe pneumonia, partially included on the [id number]. ON CT Gluteal ulcer - appears unstageable. Patient notably mostly bedbound with possible prior CVA on his CT head. Wound care, frequent turning q2hrs and IV antibiotics DENIS - vasomotor nephropathy from septic shock, will monitor renal function Acute encephalopathy - likely from septic shock, less likely CVA. Neurology recommended MRI, however no focal deficits found. Recommended against tPA Anemia - will check for iron, b12 Lactic acidosis - due to sepsis, will trend. 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 Given proximity of gluteal ulcer may need rectal tube if he begins to have BM PLAN FEN - regular diet PPX - heparin FULL CODE Dispo - 6th floor for septic shock likely from above DC Zosyn and Zyvox Monitor off antibiotic Monitor labs and cultures F/u labs and cults cont supportive care D/W RN History of Present Illness History of Present Illness Mr Wagoner is a 64yo M w/ PMHx schizophrenia, h/o heavy ETOH abuse, depression with anxiety, HTN, constipation who presents from his [facility] for unresponsiveness. EMS was contacted as the patient was found unresponsive and shaking 20 minutes prior to their call. He believes its August 20[birth year] does know his name and birthdate. Due to his lack of appropriate response and tremors a code stroke was called and he underwent CT head and CT neck which were negative for acute pathology. Suspected chronic left basal ganglia infarct was noted. CTA negative for occl usion. Notably with temperature 95.1 F rectal. BP 74/47 heart rate 154. In ED he was not responsive to 2 fluid boluses, was started on empiric antibiotics and right IJ CVC was placed for pressor support. After his blood pressure improved he became more responsive and was moving all 4 extremities able to carry on a conversation and follow commands. He complains of weakness and tremors he cannot stop. He notes no loss of appetite no abdominal complaints. He does no chills no fevers. Some slight shortness of breath. No chest pain. He does have problems with urinary retention notes he is trying to urinate when he is unable to. He notes he is relatively bedbound 07/30: Patient evaluated bedside. Afebrile. Hemoglobin dropped from 8.9-7.1, likely delusional. Continue to monitor and transfuse at Hb <7. WBC improved, lactic acid improved. Plan to continue IV fluid until lactic acid clears. Continue antibiotics per ID. 08/10: Patient seen and evaluated bedside. He is COVID-19 positive. He is afebrile, breathing on room air. Blood pressure stable. Will move out of ICU today to our [facility]- medical floor. If patient starts required O2 will initiate Decadron and consider remdesivir. Will provide supportive care, zinc, vitamin C, and vitamin D. Continue antibiotics, per ID. Discussed with RN. Vitals Vitals Vital Signs Date Time Temp Pulse Resp B/P (MAP) Pulse Ox O2 Delivery O2 Flow Rate FiO2 08/02/20 07:19 97.5 82 16 134/86 (102) 100 Room Air 97.5 Physical Exam Physical Exam GEN: sleepy but arousable male in nad HEENT: atraumatic, normocepalic ,normal conjunctivae. Oral cavity, pharynx has poor dentition. NECK: Supple, no JVD. LUNGS: Decreased at the bases. HEART: S1, S2, without murmur. ABDOMEN: nondistended,no guarding, no rebound with some decreased, but positive bowel sounds. : Terrazas in place EXTREMITIES: Without clubbing, cyanosis.trace edema SKIN: Warm to touch without generalized signs of rash. NEUROLOGIC: Nonfocal, answers questions, moves all extremities. PSYCHIATRIC: Affect was pleasant. IV: RIJ - clean General: Alert, Cooperative, No acute distress Heart: Regular rate Lungs: Clear Abdomen: Soft, No tenderness Extremities: No clubbing, No cyanosis Skin: Other (reviewed wound pictures with large decub ulcer, no obvious necrotic tissue) Labs LABS ADDENDUM #1 Addendum: This report is linked to a CT of the chest, abdomen and pelvis performed on the same date. The CT findings for the the chest, abdomen and pelvis will be included on this addendum. EXAM: Chest, abdomen and pelvis CT with intravenous contrast. HISTORY: Left-sided weakness. TECHNIQUE: Computed tomographic images of the chest, abdomen and pelvis were obtained with a previous contrast. *One or more of the following individualized dose reduction techniques were utilized for this examination: 1. Automated exposure control. 2. Adjustment of the mA and/or kV according to patient size. 3. Use of iterative reconstruction technique. FINDINGS: Chest: There are small left greater than right pleural effusions. There is partially consolidated left lower lobe pneumonia and there is right lower lobe interstitial infiltrate. The heart is normal in size. There is no pneumothorax. The aorta is normal in caliber. There are prominent mediastinal and hilar lymph nodes which are likely reactive. There are few calcified granulomas. There is a tiny hiatal hernia. There is gynecomastia. There is no acute or suspicious osseous finding. Abdomen and pelvis: No hepatic lesion is seen. The gallbladder, pancreas, spleen and adrenal glands are unremarkable. There is a 2.8 cm simple cyst within the upper pole the left kidney. The urinary bladder is distended. There is no appendicitis. There is a large amount of formed stool throughout the colon and rectal vault. The aorta is normal in caliber. There is no lymphadenopathy. There is no suspicious or acute osseous finding. There is degenerative change primarily the lumbosacral junction. IMPRESSION: 1. Partially consolidated left lower lobe pneumonia and right lower lobe in terstitial infiltrate superimposed on small left greater the right pleural effusions. 2. Mediastinal and hilar lymphadenopathy, likely reactive given the aforementioned findings. 3. Large amount of stool throughout the colon and rectal vault. Correlate for constipation. 4. Simple left renal cyst. Follow up is not routinely recommended for simple cysts. 5. Tiny hiatal hernia. 6. Distended urinary bladder. Electronically signed by: Myra Garibay MD (07/29/2020 5:34 PM) [id number] ORIGINAL REPORT EXAM: CT angiogram of the head and neck with intravenous contrast. HISTORY: Left-sided weakness. Stroke. TECHNIQUE: Computed tomographic images of the head and neck were obtained following the intravenous administration of contrast. Three-dimensional maximum intensity projection images were obtained. *One or more of the following individualized dose reduction techniques were utilized for this examination: 1. Automated exposure control. 2. Adjustment of the mA and/or kV according to patient size. 3. Use of iterative reconstruction technique. COMPARISON: Head CT obtained on the same date. FINDINGS: There is a normal caliber aortic arch. No aortic dissection is seen. There is a common origin of the right innominate and left common carotid arterie s, a normal aortic arch branching variant. The origins of the arch great vessels are widely patent. There is intimal thickening involving the bilateral common carotid arteries. There is partially calcified atherosclerotic plaque involving the carotid bulbs and origins of the internal carotid arteries, with less than 50 percent stenosis. There is also partially calcified atherosclerotic plaque involving the supraclinoid internal carotid arteries, with less than 50 percent percent stenosis. No hemodynamically significant stenosis is seen involving the cerebral arteries. The left posterior communicating arteries likely developmental or absent. The basilar artery is widely patent. The distal left vertebral artery is hypoplastic, a normal variant. There is no aneurysm. There is no suspicious enhancing lesion. There is cerebral volume loss. There are cerebral white matter changes, likely due to chronic small vessel disease. The orbits, paranasal sinuses and mastoid air cells are unremarkable. There is no lymphadenopathy. There is a small left pleural effusion. There is partial visualization of left lower lobe pneumonia. There is no pneumothorax. There are degenerative changes throughout the cervical spine. This is associated with mild right foraminal stenosis at C2-C3, severe left foraminal stenosis at C3-C4, severe left foraminal stenosis at C4-C5, moderate left foraminal stenosis at C5-C6, and mild to moderate left foraminal stenosis at C6-C7. IMPRESSION: 1. Mild atherosclerotic plaque involving the carotid bifurcations and supraclinoid internal carotid arteries, with less than 50 percent stenosis. No severe stenosis or occlusion is seen involving the neck or intracranial arteries. 2. Bilateral cerebral white matter changes, likely due to chronic. Note is made that MRI is more sensitive for acute infarction. 3. Small left pleural effusion and left lower lobe pneumonia, partially included on the [id number]. 4. Multilevel degenerative change involving the cervical spine, resulting in stenosis as described above. RS Compliance Statement - Stenosis calculations for CT, MR and conventional angiography are based upon measurement of the distal ICA diameter in accordance with the NASCET methodology. Stenosis calculations for carotid ultrasound studies are derived from validated velocity criteria which are known to correlate with the NASCET methodology. Electronically signed by: Myra aGribay MD (07/29/2020 2:28 PM) [id number] DICTATED and SIGNED BY: MYRA GARIBAY MD DATE: 07/29/20 [id number] PATIENT: EDMUND WAGONER ACCOUNT: [id number] : 1955 LOCATION: ER AGE: 64 SEX: M EXAM STATUS: REG ER ORD. PHYSICIAN: FELIX RODRIGUEZ MD REASON: central line placement PROCEDURE: CHEST AP ONLY EXAM: Chest, single view. HISTORY: Central line placement. COMPARISON: CT dated 07/29/2020. FINDINGS: A frontal view of the chest obtained. There is small left greater than right pleural effusions and there is left greater than right lower lobe interstitial infiltrate. There is an enlarged cardiac silhouette. There is a right internal jugular catheter with the tip in the superior vena cava. There is no pneumothorax. There are calcified granulomas. There are prominent air-filled loops of bowel within the upper abdomen. IMPRESSION: 1. Small left greater than right pleural effusions with left greater than right lower lobe infiltrate. 2. Prominent cardiac silhouette. 3. Right internal jugular catheter with the tip in the superior vena cava. There is no pneumothorax. Electronically signed by: Myra Garibay MD (07/29/2020 4:20 PM) [id number] DICTATED and SIGNED BY: MYRA GARIBAY MD DATE: 07/29/20 [id number] Laboratory Tests Test 08/02/20 05:30 White Blood Count 7.5 x10^3/uL (4.0-11.0) Red Blood Count 2.59 x10^6/uL (4.30-5.70) Hemoglobin 7.7 g/dL (13.0-17.5) Hematocrit 23.0 % (39.0-53.0) Mean Corpuscular Volume 89 fL (79-100) Mean Corpuscular Hemoglobin 30 pg (25-35) Mean Corpuscular Hemoglobin Concent 33 g/dL (31-37) Red Cell Distribution Width 15.2 % (11.5-14.5) Platelet Count 182 x10^3/uL (140-400) Neutrophils (%) (Auto) 57 % (31-73) Lymphocytes (%) (Auto) 32 % (24-48) Monocytes (%) (Auto) 7 % (0-9) Eosinophils (%) (Auto) 2 % (0-3) Basophils (%) (Auto) 3 % (0-3) Neutrophils # (Auto) 4.3 x10^3/uL (1.8-7.7) Lymphocytes # (Auto) 2.4 x10^3/uL (1.0-4.8) Monocytes # (Auto) 0.5 x10^3/uL (0.0-1.1) Eosinophils # (Auto) 0.1 x10^3/uL (0.0-0.7) Basophils # (Auto) 0.2 x10^3/uL (0.0-0.2) Sodium Level 143 mmol/L (136-145) Potassium Level 3.7 mmol/L (3.5-5.1) Chloride Level 107 mmol/L (98-107) Carbon Dioxide Level 29 mmol/L (21-32) Anion Gap 7 (6-14) Blood Urea Nitrogen 9 mg/dL (8-26) Creatinine 1.3 mg/dL (0.7-1.3) Estimated GFR (Cockcroft-Gault) 67.2 BUN/Creatinine Ratio 7 (6-20) Glucose Level 79 mg/dL (70-99) Calcium Level 8.4 mg/dL (8.5-10.1) Total Bilirubin 0.3 mg/dL (0.2-1.0) Aspartate Amino Transf (AST/SGOT) 17 U/L (15-37) Alanine Aminotransferase (ALT/SGPT) 14 U/L (16-63) Alkaline Phosphatase 41 U/L (46-116) Total Protein 6.1 g/dL (6.4-8.2) Albumin 2.0 g/dL (3.4-5.0) Albumin/Globulin Ratio 0.5 (1.0-1.7) Assessment and Plan Assessmemt and Plan Problems Medical Problems: (1) Pneumonia Status: Acute (2) Septic shock Status: Acute Comment Review of Relevant I have reviewed the following items any (where applicable) has been applied. Labs Laboratory Tests Test 08/02/20 05:30 White Blood Count 7.5 x10^3/uL (4.0-11.0) Red Blood Count 2.59 x10^6/uL (4.30-5.70) Hemoglobin 7.7 g/dL (13.0-17.5) Hematocrit 23.0 % (39.0-53.0) Mean Corpuscular Volume 89 fL (79-100) Mean Corpuscular Hemoglobin 30 pg (25-35) Mean Corpuscular Hemoglobin Concent 33 g/dL (31-37) Red Cell Distribution Width 15.2 % (11.5-14.5) Platelet Count 182 x10^3/uL (140-400) Neutrophils (%) (Auto) 57 % (31-73) Lymphocytes (%) (Auto) 32 % (24-48) Monocytes (%) (Auto) 7 % (0-9) Eosinophils (%) (Auto) 2 % (0-3) Basophils (%) (Auto) 3 % (0-3) Neutrophils # (Auto) 4.3 x10^3/uL (1.8-7.7) Lymphocytes # (Auto) 2.4 x10^3/uL (1.0-4.8) Monocytes # (Auto) 0.5 x10^3/uL (0.0-1.1) Eosinophils # (Auto) 0.1 x10^3/uL (0.0-0.7) Basophils # (Auto) 0.2 x10^3/uL (0.0-0.2) Sodium Level 143 mmol/L (136-145) Potassium Level 3.7 mmol/L (3.5-5.1) Chloride Level 107 mmol/L (98-107) Carbon Dioxide Level 29 mmol/L (21-32) Anion Gap 7 (6-14) Blood Urea Nitrogen 9 mg/dL (8-26) Creatinine 1.3 mg/dL (0.7-1.3) Estimated GFR (Cockcroft-Gault) 67.2 BUN/Creatinine Ratio 7 (6-20) Glucose Level 79 mg/dL (70-99) Calcium Level 8.4 mg/dL (8.5-10.1) Total Bilirubin 0.3 mg/dL (0.2-1.0) Aspartate Amino Transf (AST/SGOT) 17 U/L (15-37) Alanine Aminotransferase (ALT/SGPT) 14 U/L (16-63) Alkaline Phosphatase 41 U/L (46-116) Total Protein 6.1 g/dL (6.4-8.2) Albumin 2.0 g/dL (3.4-5.0) Albumin/Globulin Ratio 0.5 (1.0-1.7) Laboratory Tests Test 08/02/20 05:30 White Blood Count 7.5 x10^3/uL (4.0-11.0) Red Blood Count 2.59 x10^6/uL (4.30-5.70) Hemoglobin 7.7 g/dL (13.0-17.5) Hematocrit 23.0 % (39.0-53.0) Mean Corpuscular Volume 89 fL (79-100) Mean Corpuscular Hemoglobin 30 pg (25-35) Mean Corpuscular Hemoglobin Concent 33 g/dL (31-37) Red Cell Distribution Width 15.2 % (11.5-14.5) Platelet Count 182 x10^3/uL (140-400) Neutrophils (%) (Auto) 57 % (31-73) Lymphocytes (%) (Auto) 32 % (24-48) Monocytes (%) (Auto) 7 % (0-9) Eosinophils (%) (Auto) 2 % (0-3) Basophils (%) (Auto) 3 % (0-3) Neutrophils # (Auto) 4.3 x10^3/uL (1.8-7.7) Lymphocytes # (Auto) 2.4 x10^3/uL (1.0-4.8) Monocytes # (Auto) 0.5 x10^3/uL (0.0-1.1) Eosinophils # (Auto) 0.1 x10^3/uL (0.0-0.7) Basophils # (Auto) 0.2 x10^3/uL (0.0-0.2) Sodium Level 143 mmol/L (136-145) Potassium Level 3.7 mmol/L (3.5-5.1) Chloride Level 107 mmol/L (98-107) Carbon Dioxide Level 29 mmol/L (21-32) Anion Gap 7 (6-14) Blood Urea Nitrogen 9 mg/dL (8-26) Creatinine 1.3 mg/dL (0.7-1.3) Estimated GFR (Cockcroft-Gault) 67.2 BUN/Creatinine Ratio 7 (6-20) Glucose Level 79 mg/dL (70-99) Calcium Level 8.4 mg/dL (8.5-10.1) Total Bilirubin 0.3 mg/dL (0.2-1.0) Aspartate Amino Transf (AST/SGOT) 17 U/L (15-37) Alanine Aminotransferase (ALT/SGPT) 14 U/L (16-63) Alkaline Phosphatase 41 U/L (46-116) Total Protein 6.1 g/dL (6.4-8.2) Albumin 2.0 g/dL (3.4-5.0) Albumin/Globulin Ratio 0.5 (1.0-1.7) Medications Current Medications Iohexol (Omnipaque 300 Mg/ml) 75 ml 1X ONCE IV Last administered on 07/29/20at 14:08; Start 07/29/20 at 13:45; Stop 07/29/20 at 13:46; Status DC Info (CONTRAST GIVEN -- Rx MONITORING) 1 each PRN DAILY PRN MC SEE COMMENTS; Start 07/29/20 at 13:45; Stop 07/31/20 at 13:44; Status DC Sodium Chloride 1,000 ml @ 1,000 mls/hr 1X ONCE IV Last administered on 07/29/20at 13:53; Start 07/29/20 at 13:45; Stop 07/29/20 at 14:44; Status DC Norepinephrine Bitartrate 8 mg/ Dextrose 258 ml @ 15.48 mls/ hr 1X ONCE IV Last administered on 07/29/20at 14:31; Start 07/29/20 at 14:15; Stop 07/30/20 at 06:54; Status DC Piperacillin Sod/ Tazobactam Sod (Zosyn Per Pharmacy) 1 each PRN DAILY PRN MC SEE COMMENTS; Start 07/29/20 at 14:30 Piperacillin Sod/ Tazobactam Sod 3.375 gm/Sodium Chloride 50 ml @ 100 mls/hr 1X ONCE IV Last administered on 07/29/20at 14:39; Start 07/29/20 at 14:30; Stop 07/29/20 at 14:59; Status DC Vancomycin HCl (Vanco Per Pharmacy) 1 each PRN DAILY PRN MC SEE COMMENTS Last administered on 07/29/20at 17:00; Start 07/29/20 at 15:00; Stop 07/29/20 at 18:39; Status DC Sodium Chloride 1,000 ml @ 1,000 mls/hr 1X ONCE IV Last administered on 07/29/20at 15:06; Start 07/29/20 at 15:00; Stop 07/29/20 at 15:59; Status DC Sodium Chloride 1,000 ml @ 1,000 mls/hr 1X ONCE IV Last administered on 07/29/20at 17:33; Start 07/29/20 at 15:00; Stop 07/29/20 at 15:59; Status DC Sodium Chloride (NORMAL SALINE FLUSH for STERILE FIELD) 10 ml STK-MED ONCE .ROUTE ; Start 07/29/20 at 15:08; Stop 07/29/20 at 15:08; Status DC Vancomycin HCl 2 gm/Sodium Chloride 500 ml @ 250 mls/hr 1X ONCE IV Last administered on 07/29/20at 16:03; Start 07/29/20 at 15:30; Stop 07/29/20 at 17:29; Status DC Sodium Chloride 1,000 ml @ 1,000 mls/hr 1X ONCE IV ; Start 07/29/20 at 16:15; Stop 07/29/20 at 17:14; Status DC Sodium Chloride 1,000 ml @ 100 mls/hr Q10H IV Last administered on 07/30/20at 05:35; Start 07/29/20 at 16:45; Stop 07/29/20 at 20:44; Status DC Piperacillin Sod/ Tazobactam Sod 3.375 gm/Sodium Chloride 50 ml @ 100 mls/hr Q6HRS IV Last administered on 08/02/20at 05:31; Start 07/29/20 at 19:30 Vancomycin HCl 1.25 gm/Sodium Chloride 250 ml @ 167 mls/hr Q24H IV ; Start 07/30/20 at 16:00; Stop 07/30/20 at 06:46; Status DC Vancomycin HCl (Vancomycin Trough Level) 1 each 1X ONCE MC ; Start 07/31/20 at 15:30; Stop 07/31/20 at 15:31; Status Cancel Vancomycin HCl (Vanco Per Pharmacy) 1 each PRN DAILY PRN MC SEE COMMENTS; Start 07/29/20 at 18:45; Stop 07/30/20 at 06:46; Status DC Albumin Human 500 ml @ 125 mls/hr 1X ONCE IV Last administered on 07/29/20at 21:37; Start 07/29/20 at 18:45; Stop 07/29/20 at 22:44; Status DC Heparin Sodium (Porcine) (Heparin Sodium) 5,000 unit Q8HRS SQ Last administered on 08/02/20at 05:33; Start 07/29/20 at 22:00 Ondansetron HCl (Zofran) 4 mg PRN Q4HRS PRN IV NAUSEA/VOMITING; Start 07/29/20 at 20:45 Acetaminophen (Tylenol) 650 mg PRN Q4HRS PRN PO TEMP OVER 100.4F OR MILD PAIN Last administered on 07/31/20at 15:48; Start 07/29/20 at 20:45 Docusate Sodium (Colace) 100 mg PRN BID PRN PO HARD STOOLS; Start 07/29/20 at 20:45 Psyllium Hydrophilic Mucilloid (Metamucil Fiber Packet) 1 pkt QHS PO Last administered on 08/01/20at 20:44; Start 07/29/20 at 21:00 Olanzapine (ZyPREXA ZYDIS) 5 mg PRN BID PRN PO ANXIETY / AGITATION; Start 07/29/20 at 20:45 Benztropine Mesylate (Cogentin) 1 mg PRN BID PRN IM EXTRAPYRAMIDAL SIDE EFFECTS ; Start 07/29/20 at 21:00; Stop 07/29/20 at 21:13; Status DC Diphenhydramine HCl (Benadryl) 25 mg PRN Q6HRS PRN IVP SHIVERING; Start 07/29/20 at 21:00 Haloperidol (Haldol) 2 mg BID PO Last administered on 08/02/20at 09:16; Start 07/29/20 at 21:00 Quetiapine Fumarate (SEROquel) 400 mg QHS PO Last administered on 08/01/20at 20:45; Start 07/29/20 at 21:15 Valproic Acid (Depakene) 250 mg BID PO Last administered on 08/02/20at 09:19; Start 07/29/20 at 21:15 Benztropine Mesylate (Cogentin) 1 mg BID IM Last administered on 07/31/20at 09:20; Start 07/29/20 at 21:15; Stop 07/31/20 at 10:48; Status DC Vitamin D (Vitamin D3) 5,000 unit DAILY PO Last administered on 08/02/20 09:17; Start 07/30/20 at 09:00 Linezolid/Dextrose 300 ml @ 300 mls/hr Q12HR IV Last administered on 08/02/20at 09:19; Start 07/30/20 at 09:00 Lactobacillus Rhamnosus (Culturelle) 1 cap BID PO Last administered on 08/02/20at 09:17; Start 07/30/20 at 09:00 Ascorbic Acid (Vitamin C) 500 mg BID PO Last administered on 08/02/20at 09:19; Start 07/31/20 at 09:00; Stop 08/14/20 at 08:59 Zinc Sulfate (Orazinc) 440 mg DAILY PO Last administered on 08/02/20at 09:23; Start 07/31/20 at 09:00; Stop 08/15/20 at 08:59 Benztropine Mesylate (Cogentin) 1 mg PRN BID PRN PO EXTRAPYRAMIDAL SIDE EFFECTS; Start 07/31/20 at 11:00 Active Scripts Active Levofloxacin 500 Mg Tablet 1 Tab PO DAILY Vitals/I & O Vital Sign - Last 24 Hours 08/01/20 08/01/20 08/01/20 08/01/20 15:00 19:00 19:20 23:00 Temp 95.5 97.9 98.2 95.5 97.9 98.2 Pulse 87 107 92 Resp 16 16 16 B/P (MAP) 139/82 (101) 134/90 (105) 138/84 (102) Pulse Ox 99 98 99 O2 Delivery Room Air Room Air Room Air Room Air 08/02/20 08/02/20 03:20 07:19 Temp 98.0 97.5 98.0 97.5 Pulse 95 82 Resp 15 16 B/P (MAP) 144/81 (102) 134/86 (102) Pulse Ox 99 100 O2 Delivery Room Air Room Air Intake and Output 08/01/20 08/01/20 08/02/20 15:00 23:00 07:00 Intake Total 300 ml 300 ml 553 ml Output Total 900 ml 1200 ml Balance -600 ml 300 ml -647 ml Justicifation of Admission Dx: Justifications for Admission: Justification of Admission Dx: N/A ITZEL MORALES MD Aug 02, 2020 11:27
--- NOTE | 2020-08-02 12:43 | PDOC ---
Infectious Disease Note Subjective: Subjective Patient without complaints no new issues per rn remains on RA No BM Vital Signs: Vital Signs Vital Signs Date Time Temp Pulse Resp B/P (MAP) Pulse Ox O2 Delivery O2 Flow Rate FiO2 08/02/20 11:14 97.2 88 18 123/93 (103) 100 Room Air 97.2 Physical Exam: PHYSICAL EXAM GEN: sleepy but arousable male in nad HEENT: atraumatic, normocepalic ,normal conjunctivae. Oral cavity, pharynx has poor dentition. NECK: Supple, no JVD. LUNGS: Decreased at the bases. HEART: S1, S2, without murmur. ABDOMEN: nondistended,no guarding, no rebound with some decreased, but positive bowel sounds. : Balderas in place EXTREMITIES: Without clubbing, cyanosis.trace edema SKIN: Warm to touch without generalized signs of rash. NEUROLOGIC: Nonfocal, answers questions, moves all extremities. PSYCHIATRIC: Affect was pleasant. IV: RIJ - clean Medications: Inpatient Meds: Current Medications Medications (Trade) Dose Ordered Sig/Jeffrey Start Time Stop Time Status Last Admin Dose Admin Acetaminophen (Tylenol) 650 mg PRN Q4HRS PRN 07/29/20 20:45 07/31/20 15:48 650 MG Albumin Human 500 ml @ 125 mls/hr 1X ONCE 07/29/20 18:45 07/29/20 22:44 DC 07/29/20 21:37 125 MLS/HR Ascorbic Acid (Vitamin C) 500 mg BID 07/31/20 09:00 08/14/20 08:59 08/02/20 09:19 500 MG Benztropine Mesylate (Cogentin) 1 mg PRN BID PRN 07/31/20 11:00 Diphenhydramine HCl (Benadryl) 25 mg PRN Q6HRS PRN 07/29/20 21:00 Docusate Sodium (Colace) 100 mg PRN BID PRN 07/29/20 20:45 Haloperidol (Haldol) 2 mg BID 07/29/20 21:00 08/02/20 09:16 2 MG Heparin Sodium (Porcine) (Heparin Sodium) 5,000 unit Q8HRS 07/29/20 22:00 08/02/20 12:35 5,000 UNIT Info (CONTRAST GIVEN -- Rx MONITORING) 1 each PRN DAILY PRN 07/29/20 13:45 07/31/20 13:44 DC Iohexol (Omnipaque 300 Mg/ml) 75 ml 1X ONCE 07/29/20 13:45 07/29/20 13:46 DC 07/29/20 14:08 75 ML Lactobacillus Rhamnosus (Culturelle) 1 cap BID 07/30/20 09:00 08/02/20 09:17 1 CAP Linezolid/Dextrose 300 ml @ 300 mls/hr Q12HR 07/30/20 09:00 08/02/20 09:19 300 MLS/HR Norepinephrine Bitartrate 8 mg/ Dextrose 258 ml @ 15.48 mls/ hr 1X ONCE 07/29/20 14:15 07/30/20 06:54 DC 07/29/20 14:31 16.5 MLS/HR Olanzapine (ZyPREXA ZYDIS) 5 mg PRN BID PRN 07/29/20 20:45 Ondansetron HCl (Zofran) 4 mg PRN Q4HRS PRN 07/29/20 20:45 Piperacillin Sod/ Tazobactam Sod (Zosyn Per Pharmacy) 1 each PRN DAILY PRN 07/29/20 14:30 Piperacillin Sod/ Tazobactam Sod 3.375 gm/Sodium Chloride 50 ml @ 100 mls/hr Q6HRS 07/29/20 19:30 08/02/20 12:34 100 MLS/HR Psyllium Hydrophilic Mucilloid (Metamucil Fiber Packet) 1 pkt QHS 07/29/20 21:00 08/01/20 20:44 1 PKT Quetiapine Fumarate (SEROquel) 400 mg QHS 07/29/20 21:15 08/01/20 20:45 400 MG Sodium Chloride 1,000 ml @ 100 mls/hr Q10H 07/29/20 16:45 07/29/20 20:44 DC 07/30/20 05:35 100 MLS/HR Sodium Chloride (NORMAL SALINE FLUSH for STERILE FIELD) 10 ml STK-MED ONCE 07/29/20 15:08 07/29/20 15:08 DC Valproic Acid (Depakene) 250 mg BID 07/29/20 21:15 08/02/20 09:19 250 MG Vancomycin HCl (Vanco Per Pharmacy) 1 each PRN DAILY PRN 07/29/20 18:45 07/30/20 06:46 DC Vancomycin HCl (Vancomycin Trough Level) 1 each 1X ONCE 07/31/20 15:30 07/31/20 15:31 Cancel Vancomycin HCl 1.25 gm/Sodium Chloride 250 ml @ 167 mls/hr Q24H 07/30/20 16:00 07/30/20 06:46 DC Vancomycin HCl 2 gm/Sodium Chloride 500 ml @ 250 mls/hr 1X ONCE 07/29/20 15:30 07/29/20 17:29 DC 07/29/20 16:03 250 MLS/HR Vitamin D (Vitamin D3) 5,000 unit DAILY 07/30/20 09:00 08/02/20 09:17 5,000 UNIT Zinc Sulfate (Orazinc) 440 mg DAILY 07/31/20 09:00 08/15/20 08:59 08/02/20 09:23 440 MG Labs: Lab Laboratory Tests Test 08/02/20 05:30 White Blood Count 7.5 x10^3/uL (4.0-11.0) Red Blood Count 2.59 x10^6/uL (4.30-5.70) Hemoglobin 7.7 g/dL (13.0-17.5) Hematocrit 23.0 % (39.0-53.0) Mean Corpuscular Volume 89 fL (79-100) Mean Corpuscular Hemoglobin 30 pg (25-35) Mean Corpuscular Hemoglobin Concent 33 g/dL (31-37) Red Cell Distribution Width 15.2 % (11.5-14.5) Platelet Count 182 x10^3/uL (140-400) Neutrophils (%) (Auto) 57 % (31-73) Lymphocytes (%) (Auto) 32 % (24-48) Monocytes (%) (Auto) 7 % (0-9) Eosinophils (%) (Auto) 2 % (0-3) Basophils (%) (Auto) 3 % (0-3) Neutrophils # (Auto) 4.3 x10^3/uL (1.8-7.7) Lymphocytes # (Auto) 2.4 x10^3/uL (1.0-4.8) Monocytes # (Auto) 0.5 x10^3/uL (0.0-1.1) Eosinophils # (Auto) 0.1 x10^3/uL (0.0-0.7) Basophils # (Auto) 0.2 x10^3/uL (0.0-0.2) Sodium Level 143 mmol/L (136-145) Potassium Level 3.7 mmol/L (3.5-5.1) Chloride Level 107 mmol/L (98-107) Carbon Dioxide Level 29 mmol/L (21-32) Anion Gap 7 (6-14) Blood Urea Nitrogen 9 mg/dL (8-26) Creatinine 1.3 mg/dL (0.7-1.3) Estimated GFR (Cockcroft-Gault) 67.2 BUN/Creatinine Ratio 7 (6-20) Glucose Level 79 mg/dL (70-99) Calcium Level 8.4 mg/dL (8.5-10.1) Total Bilirubin 0.3 mg/dL (0.2-1.0) Aspartate Amino Transf (AST/SGOT) 17 U/L (15-37) Alanine Aminotransferase (ALT/SGPT) 14 U/L (16-63) Alkaline Phosphatase 41 U/L (46-116) Total Protein 6.1 g/dL (6.4-8.2) Albumin 2.0 g/dL (3.4-5.0) Albumin/Globulin Ratio 0.5 (1.0-1.7) Objective: Assessment: Sepsis POA resolved Leukocyotosis - better PNA Left > right COVID + 07/29 DENIS - better Severe constipation Distended bladder - placed balderas 07/30 ;UC negative Plan: Plan of Care DC Zosyn and Zyvox Monitor off antibiotic Monitor labs and cultures cont supportive care D/W TRINI FONTANEZ MD Aug 02, 2020 12:43
[2020-08-02 15:14] VITALS: BP 162/92
[2020-08-02 19:00] VITALS: BP 179/85
[2020-08-02] MEDS: PSYLLIUM HUSK (SUGAR FREE) 1 PKT PACKET PO SCH (20:53)
[2020-08-02] MEDS: QUEtiapine 100 MG TABLET. PO SCH (20:54)
[2020-08-02 23:00] VITALS: BP 128/71
[2020-08-03 02:55] VITALS: BP 117/70
[2020-08-03] MEDS: HEPARIN for SUB-Q USE 5,000 UNIT/ML VIAL. SQ SCH ×2 (05:13→14:30)
[2020-08-03 07:00] VITALS: BP 160/95
[2020-08-03] MEDS: VALPROIC ACID 250 MG CAPSULE. PO SCH (08:35)
[2020-08-03] MEDS: HALOPERIDOL 2 MG TABLET. PO SCH (08:35)
[2020-08-03] MEDS: ASCORBIC ACID 500 MG TABLET PO SCH (08:35)
[2020-08-03] MEDS: ZINC SULFATE 220 MG CAPSULE. PO SCH (08:35)
[2020-08-03] MEDS: CHOLECALCIFEROL (VITAMIN D3) 5,000 UNIT CAPSULE PO SCH (08:35)
[2020-08-03] MEDS: LACTOBACILLUS RHAMNOSUS GG 1 CAPSULE. PO SCH (08:35)
--- NOTE | 2020-08-03 08:54 | NUR ---
Issue with tele monitor this am. Unable to print tele strip. Pt SR on monitor in pt's room. Addendum: 08/03/20 at 1004 by STEPHANIE JUNIOR RN Monitor fixed, working properly. Strip printed and interpreted by snadrita AYALA. Pt SR.
--- NOTE | 2020-08-03 10:32 | PDOC ---
Infectious Disease Note Subjective: Subjective Patient without complaints Required 4 L O2 by nasal cannula at night but currently on room air Still somewhat weak no new issues per rn Vital Signs: Vital Signs Vital Signs Date Time Temp Pulse Resp B/P (MAP) Pulse Ox O2 Delivery O2 Flow Rate FiO2 08/03/20 08:30 Room Air 08/03/20 07:00 98.1 93 18 160/95 (116) 97 98.1 08/03/20 02:55 4.0 Physical Exam: PHYSICAL EXAM GEN: sleepy but arousable male in nad HEENT: atraumatic, normocepalic ,normal conjunctivae. Oral cavity, pharynx has poor dentition. NECK: Supple, no JVD. LUNGS: Decreased at the bases. HEART: S1, S2, without murmur. ABDOMEN: nondistended,no guarding, no rebound with some decreased, but positive bowel sounds. : Balderas in place EXTREMITIES: Without clubbing, cyanosis.trace edema SKIN: Warm to touch without generalized signs of rash. NEUROLOGIC: Nonfocal, answers questions, moves all extremities. PSYCHIATRIC: Affect was pleasant. IV: RIJ - clean Medications: Inpatient Meds: Current Medications Medications (Trade) Dose Ordered Sig/Jeffrey Start Time Stop Time Status Last Admin Dose Admin Acetaminophen (Tylenol) 650 mg PRN Q4HRS PRN 07/29/20 20:45 07/31/20 15:48 650 MG Albumin Human 500 ml @ 125 mls/hr 1X ONCE 07/29/20 18:45 07/29/20 22:44 DC 07/29/20 21:37 125 MLS/HR Ascorbic Acid (Vitamin C) 500 mg BID 07/31/20 09:00 08/14/20 08:59 08/03/20 08:35 500 MG Benztropine Mesylate (Cogentin) 1 mg PRN BID PRN 07/31/20 11:00 Diphenhydramine HCl (Benadryl) 25 mg PRN Q6HRS PRN 07/29/20 21:00 Docusate Sodium (Colace) 100 mg PRN BID PRN 07/29/20 20:45 Haloperidol (Haldol) 2 mg BID 07/29/20 21:00 08/03/20 08:35 2 MG Heparin Sodium (Porcine) (Heparin Sodium) 5,000 unit Q8HRS 07/29/20 22:00 08/03/20 05:13 5,000 UNIT Info (CONTRAST GIVEN -- Rx MONITORING) 1 each PRN DAILY PRN 07/29/20 13:45 07/31/20 13:44 DC Iohexol (Omnipaque 300 Mg/ml) 75 ml 1X ONCE 07/29/20 13:45 07/29/20 13:46 DC 07/29/20 14:08 75 ML Lactobacillus Rhamnosus (Culturelle) 1 cap BID 07/30/20 09:00 08/03/20 08:35 1 CAP Linezolid/Dextrose 300 ml @ 300 mls/hr Q12HR 07/30/20 09:00 08/02/20 13:07 DC 08/02/20 09:19 300 MLS/HR Norepinephrine Bitartrate 8 mg/ Dextrose 258 ml @ 15.48 mls/ hr 1X ONCE 07/29/20 14:15 07/30/20 06:54 DC 07/29/20 14:31 16.5 MLS/HR Olanzapine (ZyPREXA ZYDIS) 5 mg PRN BID PRN 07/29/20 20:45 Ondansetron HCl (Zofran) 4 mg PRN Q4HRS PRN 07/29/20 20:45 Piperacillin Sod/ Tazobactam Sod (Zosyn Per Pharmacy) 1 each PRN DAILY PRN 07/29/20 14:30 08/02/20 13:08 DC Piperacillin Sod/ Tazobactam Sod 3.375 gm/Sodium Chloride 50 ml @ 100 mls/hr Q6HRS 07/29/20 19:30 08/02/20 13:07 DC 08/02/20 12:34 100 MLS/HR Psyllium Hydrophilic Mucilloid (Metamucil Fiber Packet) 1 pkt QHS 07/29/20 21:00 08/02/20 20:53 1 PKT Quetiapine Fumarate (SEROquel) 400 mg QHS 07/29/20 21:15 08/02/20 20:54 400 MG Sodium Chloride 1,000 ml @ 100 mls/hr Q10H 07/29/20 16:45 07/29/20 20:44 DC 07/30/20 05:35 100 MLS/HR Sodium Chloride (NORMAL SALINE FLUSH for STERILE FIELD) 10 ml STK-MED ONCE 07/29/20 15:08 07/29/20 15:08 DC Valproic Acid (Depakene) 250 mg BID 07/29/20 21:15 08/03/20 08:35 250 MG Vancomycin HCl (Vanco Per Pharmacy) 1 each PRN DAILY PRN 07/29/20 18:45 07/30/20 06:46 DC Vancomycin HCl (Vancomycin Trough Level) 1 each 1X ONCE 07/31/20 15:30 07/31/20 15:31 Cancel Vancomycin HCl 1.25 gm/Sodium Chloride 250 ml @ 167 mls/hr Q24H 07/30/20 16:00 07/30/20 06:46 DC Vancomycin HCl 2 gm/Sodium Chloride 500 ml @ 250 mls/hr 1X ONCE 07/29/20 15:30 07/29/20 17:29 DC 07/29/20 16:03 250 MLS/HR Vitamin D (Vitamin D3) 5,000 unit DAILY 07/30/20 09:00 08/03/20 08:35 5,000 UNIT Zinc Sulfate (Orazinc) 440 mg DAILY 07/31/20 09:00 08/15/20 08:59 08/03/20 08:35 440 MG Objective: Assessment: Sepsis POA resolved Leukocyotosis - better PNA Left > right COVID + 07/29 DENIS - better Severe constipation Distended bladder - placed balderas 07/30 ;UC negative Plan: Plan of Care Monitor off antibiotics Monitor labs and cultures cont supportive care D/W TRINI FONTANEZ MD Aug 03, 2020 10:32
[2020-08-03 11:00] VITALS: BP 175/95
--- NOTE | 2020-08-03 11:57 | PDOC ---
PROGRESS NOTES Date of Service: DATE: 08/03/20 TIME: 11:55 Chief Complaint Chief Complaint DISCHARGE DX Septic shock - likely from gluteal ulcer vs pneumonia COVID 19. Given empiric antibiotics, fluids. RIJ CVC for pressors after failure of appropriate IVF resuscitation Small left pleural effusion and left lower lobe pneumonia, partially included on the [id number]. ON CT Gluteal ulcer - appears unstageable. Patient notably mostly bedbound with possible prior CVA on his CT head. Wound care, frequent turning q2hrs and IV antibiotics DENIS - vasomotor nephropathy from septic shock, will monitor renal function Acute encephalopathy - likely from septic shock, less likely CVA. Neurology recommended MRI, however no focal deficits found. Recommended against tPA Anemia - will check for iron, b12 Lactic acidosis - due to sepsis, will trend. 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 Given proximity of gluteal ulcer may need rectal tube if he begins to have BM PLAN FEN - regular diet PPX - heparin FULL CODE Dispo - 6th floor for septic shock likely from above DC Zosyn and Zyvox Monitor off antibiotic Monitor labs and cultures F/u labs and cults cont supportive care BACK TO FACILITY D/W RN D/C PLANNING 36 MIN History of Present Illness History of Present Illness Mr Gustafson is a 64yo M w/ PMHx schizophrenia, h/o heavy ETOH abuse, depression with anxiety, HTN, constipation who presents from his terminal [facility] for unresponsiveness. EMS was contacted as the patient was found unresponsive and shaking 20 minutes prior to their call. He believes its August 2049 does know his name and birthdate. Due to his lack of appropriate response and tremors a code stroke was called and he underwent CT head and CT neck which were negative for acute pathology. Suspected chronic left basal ganglia infarct was noted. CTA negative for occlusion. Notably with temperature 95.1 F rectal. BP 74/47 heart rate 154. In ED he was not responsive to 2 fluid boluses, was started on empiric antibiotics and right IJ CVC was placed for pressor support. After his blood pressure improved he became more responsive and was moving all 4 extremities able to carry on a conversation and follow commands. He complains of weakness and tremors he cannot stop. He notes no loss of appetite no abdominal complaints. He does no chills no fevers. Some slight shortness of breath. No chest pain. He does have problems with urinary retention notes he is trying to urinate when he is unable to. He notes he is relatively bedbound 07/30: Patient evaluated bedside. Afebrile. Hemoglobin dropped from 8.9-7.1, likely delusional. Continue to monitor and transfuse at Hb <7. WBC improved, lactic acid improved. Plan to continue IV fluid until lactic acid clears. Continue antibiotics per ID. 08/10: Patient seen and evaluated bedside. He is COVID-19 positive. He is afebrile, breathing on room air. Blood pressure stable. Will move out of ICU today to our COVID-19 medical floor. If patient starts required O2 will initiate Decadron and consider remdesivir. Will provide supportive care, zinc, vitamin C, and vitamin D. Continue antibiotics, per ID. Discussed with RN. Vitals Vitals Vital Signs Date Time Temp Pulse Resp B/P (MAP) Pulse Ox O2 Delivery O2 Flow Rate FiO2 08/03/20 08:30 Room Air 08/03/20 07:00 98.1 93 18 160/95 (116) 97 98.1 08/03/20 02:55 4.0 Physical Exam Physical Exam GEN: sleepy but arousable male in nad HEENT: atraumatic, normocepalic ,normal conjunctivae. Oral cavity, pharynx has poor dentition. NECK: Supple, no JVD. LUNGS: Decreased at the bases. HEART: S1, S2, without murmur. ABDOMEN: nondistended,no guarding, no rebound with some decreased, but positive bowel sounds. : Terrazas in place EXTREMITIES: Without clubbing, cyanosis.trace edema SKIN: Warm to touch without generalized signs of rash. NEUROLOGIC: Nonfocal, answers questions, moves all extremities. PSYCHIATRIC: Affect was pleasant. IV: RIJ - clean General: Alert, Cooperative, No acute distress Heart: Regular rate Lungs: Clear Abdomen: Normal bowel sounds, Soft, No tenderness Extremities: No clubbing, No cyanosis Skin: Other (reviewed wound pictures with large decub ulcer, no obvious necrotic tissue) Assessment and Plan Assessmemt and Plan Problems Medical Problems: (1) Pneumonia Status: Acute (2) Septic shock Status: Acute Comment Review of Relevant I have reviewed the following items any (where applicable) has been applied. Labs Laboratory Tests Test 08/02/20 05:30 White Blood Count 7.5 x10^3/uL (4.0-11.0) Red Blood Count 2.59 x10^6/uL (4.30-5.70) Hemoglobin 7.7 g/dL (13.0-17.5) Hematocrit 23.0 % (39.0-53.0) Mean Corpuscular Volume 89 fL (79-100) Mean Corpuscular Hemoglobin 30 pg (25-35) Mean Corpuscular Hemoglobin Concent 33 g/dL (31-37) Red Cell Distribution Width 15.2 % (11.5-14.5) Platelet Count 182 x10^3/uL (140-400) Neutrophils (%) (Auto) 57 % (31-73) Lymphocytes (%) (Auto) 32 % (24-48) Monocytes (%) (Auto) 7 % (0-9) Eosinophils (%) (Auto) 2 % (0-3) Basophils (%) (Auto) 3 % (0-3) Neutrophils # (Auto) 4.3 x10^3/uL (1.8-7.7) Lymphocytes # (Auto) 2.4 x10^3/uL (1.0-4.8) Monocytes # (Auto) 0.5 x10^3/uL (0.0-1.1) Eosinophils # (Auto) 0.1 x10^3/uL (0.0-0.7) Basophils # (Auto) 0.2 x10^3/uL (0.0-0.2) Sodium Level 143 mmol/L (136-145) Potassium Level 3.7 mmol/L (3.5-5.1) Chloride Level 107 mmol/L (98-107) Carbon Dioxide Level 29 mmol/L (21-32) Anion Gap 7 (6-14) Blood Urea Nitrogen 9 mg/dL (8-26) Creatinine 1.3 mg/dL (0.7-1.3) Estimated GFR (Cockcroft-Gault) 67.2 BUN/Creatinine Ratio 7 (6-20) Glucose Level 79 mg/dL (70-99) Calcium Level 8.4 mg/dL (8.5-10.1) Total Bilirubin 0.3 mg/dL (0.2-1.0) Aspartate Amino Transf (AST/SGOT) 17 U/L (15-37) Alanine Aminotransferase (ALT/SGPT) 14 U/L (16-63) Alkaline Phosphatase 41 U/L (46-116) Total Protein 6.1 g/dL (6.4-8.2) Albumin 2.0 g/dL (3.4-5.0) Albumin/Globulin Ratio 0.5 (1.0-1.7) Medications Current Medications Iohexol (Omnipaque 300 Mg/ml) 75 ml 1X ONCE IV Last administered on 07/29/20at 14:08; Start 07/29/20 at 13:45; Stop 07/29/20 at 13:46; Status DC Info (CONTRAST GIVEN -- Rx MONITORING) 1 each PRN DAILY PRN MC SEE COMMENTS; Start 07/29/20 at 13:45; Stop 07/31/20 at 13:44; Status DC Sodium Chloride 1,000 ml @ 1,000 mls/hr 1X ONCE IV Last administered on 07/29/20at 13:53; Start 07/29/20 at 13:45; Stop 07/29/20 at 14:44; Status DC Norepinephrine Bitartrate 8 mg/ Dextrose 258 ml @ 15.48 mls/ hr 1X ONCE IV Last administered on 07/29/20at 14:31; Start 07/29/20 at 14:15; Stop 07/30/20 at 06:54; Status DC Piperacillin Sod/ Tazobactam Sod (Zosyn Per Pharmacy) 1 each PRN DAILY PRN MC SEE COMMENTS; Start 07/29/20 at 14:30; Stop 08/02/20 at 13:08; Status DC Piperacillin Sod/ Tazobactam Sod 3.375 gm/Sodium Chloride 50 ml @ 100 mls/hr 1X ONCE IV Last administered on 07/29/20at 14:39; Start 07/29/20 at 14:30; Stop 07/29/20 at 14:59; Status DC Vancomycin HCl (Vanco Per Pharmacy) 1 each PRN DAILY PRN MC SEE COMMENTS Last administered on 07/29/20at 17:00; Start 07/29/20 at 15:00; Stop 07/29/20 at 18:39; Status DC Sodium Chloride 1,000 ml @ 1,000 mls/hr 1X ONCE IV Last administered on 07/29/20at 15:06; Start 07/29/20 at 15:00; Stop 07/29/20 at 15:59; Status DC Sodium Chloride 1,000 ml @ 1,000 mls/hr 1X ONCE IV Last administered on 07/29/20at 17:33; Start 07/29/20 at 15:00; Stop 07/29/20 at 15:59; Status DC Sodium Chloride (NORMAL SALINE FLUSH for STERILE FIELD) 10 ml STK-MED ONCE .ROUTE ; Start 07/29/20 at 15:08; Stop 07/29/20 at 15:08; Status DC Vancomycin HCl 2 gm/Sodium Chloride 500 ml @ 250 mls/hr 1X ONCE IV Last administered on 07/29/20at 16:03; Start 07/29/20 at 15:30; Stop 07/29/20 at 17:29; Status DC Sodium Chloride 1,000 ml @ 1,000 mls/hr 1X ONCE IV ; Start 07/29/20 at 16:15; Stop 07/29/20 at 17:14; Status DC Sodium Chloride 1,000 ml @ 100 mls/hr Q10H IV Last administered on 07/30/20at 05:35; Start 07/29/20 at 16:45; Stop 07/29/20 at 20:44; Status DC Piperacillin Sod/ Tazobactam Sod 3.375 gm/Sodium Chloride 50 ml @ 100 mls/hr Q6HRS IV Last administered on 08/02/20at 12:34; Start 07/29/20 at 19:30; Stop 08/02/20 at 13:07; Status DC Vancomycin HCl 1.25 gm/Sodium Chloride 250 ml @ 167 mls/hr Q24H IV ; Start 07/30/20 at 16:00; Stop 07/30/20 at 06:46; Status DC Vancomycin HCl (Vancomycin Trough Level) 1 each 1X ONCE MC ; Start 07/31/20 at 15:30; Stop 07/31/20 at 15:31; Status Cancel Vancomycin HCl (Vanco Per Pharmacy) 1 each PRN DAILY PRN MC SEE COMMENTS; Start 07/29/20 at 18:45; Stop 07/30/20 at 06:46; Status DC Albumin Human 500 ml @ 125 mls/hr 1X ONCE IV Last administered on 07/29/20at 21:37; Start 07/29/20 at 18:45; Stop 07/29/20 at 22:44; Status DC Heparin Sodium (Porcine) (Heparin Sodium) 5,000 unit Q8HRS SQ Last administered on 08/03/20at 05:13; Start 07/29/20 at 22:00 Ondansetron HCl (Zofran) 4 mg PRN Q4HRS PRN IV NAUSEA/VOMITING; Start 07/29/20 at 20:45 Acetaminophen (Tylenol) 650 mg PRN Q4HRS PRN PO TEMP OVER 100.4F OR MILD PAIN Last administered on 07/31/20at 15:48; Start 07/29/20 at 20:45 Docusate Sodium (Colace) 100 mg PRN BID PRN PO HARD STOOLS; Start 07/29/20 at 20:45 Psyllium Hydrophilic Mucilloid (Metamucil Fiber Packet) 1 pkt QHS PO Last administered on 08/02/20at 20:53; Start 07/29/20 at 21:00 Olanzapine (ZyPREXA ZYDIS) 5 mg PRN BID PRN PO ANXIETY / AGITATION; Start 07/29/20 at 20:45 Benztropine Mesylate (Cogentin) 1 mg PRN BID PRN IM EXTRAPYRAMIDAL SIDE EFFECTS; Start 07/29/20 at 21:00; Stop 07/29/20 at 21:13; Status DC Diphenhydramine HCl (Benadryl) 25 mg PRN Q6HRS PRN IVP SHIVERING; Start 07/29/20 at 21:00 Haloperidol (Haldol) 2 mg BID PO Last administered on 08/03/20at 08:35; Start 07/29/20 at 21:00 Quetiapine Fumarate (SEROquel) 400 mg QHS PO Last administered on 08/02/20at 20:54; Start 07/29/20 at 21:15 Valproic Acid (Depakene) 250 mg BID PO Last administered on 08/03/20at 08:35; Start 07/29/20 at 21:15 Benztropine Mesylate (Cogentin) 1 mg BID IM Last administered on 07/31/20at 09:20; Start 07/29/20 at 21:15; Stop 07/31/20 at 10:48; Status DC Vitamin D (Vitamin D3) 5,000 unit DAILY PO Last administered on 08/03/20at 08:35; Start 07/30/20 at 09:00 Linezolid/Dextrose 300 ml @ 300 mls/hr Q12HR IV Last administered on 08/02/20at 09:19; Start 07/30/20 at 09:00; Stop 08/02/20 at 13:07; Status DC Lactobacillus Rhamnosus (Culturelle) 1 cap BID PO Last administered on 08/03/20at 08:35; Start 07/30/20 at 09:00 Ascorbic Acid (Vitamin C) 500 mg BID PO Last administered on 08/03/20at 08:35; Start 07/31/20 at 09:00; Stop 08/14/20 at 08:59 Zinc Sulfate (Orazinc) 440 mg DAILY PO Last administered on 08/03/20at 08:35; Start 07/31/20 at 09:00; Stop 08/15/20 at 08:59 Benztropine Mesylate (Cogentin) 1 mg PRN BID PRN PO EXTRAPYRAMIDAL SIDE EFFECTS; Start 07/31/20 at 11:00 Active Scripts Active Levofloxacin 500 Mg Tablet 1 Tab PO DAILY Vitals/I & O Vital Sign - Last 24 Hours 08/02/20 08/02/20 08/02/20 08/02/20 15:14 19:00 19:00 23:00 Temp 97.2 98.7 98.8 97.2 98.7 98.8 Pulse 87 87 80 Resp 21 18 17 B/P (MAP) 162/92 (115) 179/85 (116) 128/71 (90) Pulse Ox 99 96 96 O2 Delivery Room Air Room Air Room Air Room Air O2 Flow Rate 4.0 4.0 08/03/20 08/03/20 08/03/20 02:55 07:00 08:30 Temp 99.4 98.1 99.4 98.1 Pulse 90 93 Resp 17 18 B/P (MAP) 117/70 (86) 160/95 (116) Pulse Ox 97 97 O2 Delivery Room Air Room Air Room Air O2 Flow Rate 4.0 Intake and Output 08/02/20 08/02/20 08/03/20 15:00 23:00 07:00 Intake Total 0 ml 530 ml Output Total 650 ml 200 ml 1750 ml Balance -650 ml 330 ml -1750 ml Justicifation of Admission Dx: Justifications for Admission: Justification of Admission Dx: N/A ITZEL MORALES MD Aug 03, 2020 11:57
[2020-08-03] MEDS ORDERED: LACT1CAP19 PO (12:01)
[2020-08-03] MEDS ORDERED: DOCU-153 PO (12:01)
[2020-08-03] MEDS ORDERED: ZINC220C2 PO (12:01)
[2020-08-03] MEDS ORDERED: CHOL5000 PO (12:01)
[2020-08-03] MEDS ORDERED: VALP250C2 PO (12:01)
[2020-08-03] MEDS ORDERED: ACET325T9 PO (12:01)
[2020-08-03] MEDS ORDERED: OLAN5TAB7 PO (12:01)
[2020-08-03] MEDS ORDERED: BENZ1TAB5 PO (12:01)
[2020-08-03] MEDS ORDERED: QUET100T PO (12:01)
[2020-08-03] MEDS ORDERED: ASCO500T4 PO (12:01)
--- NOTE | 2020-08-03 12:04 | SNU/HH DC ---
DISCHARGE ORDERS DISCHARGE INFORMATION: FINAL DIAGNOSIS Problems Medical Problems: (1) Pneumonia Status: Acute (2) Septic shock Status: Acute CONDITION ON DISCHARGE: Stable CODE STATUS: Code Status: Full LONG-TERM: SNF STAY <30 DAYS: Yes HOSPICE: HOSPICE: No HOSPICE EVAL & TREAT: No LTAC: ADMIT TO LTAC: No POST DISCHARGE ORDERS: ACTIVITY ORDERS: Bedrest today DIET AFTER DISCHARGE: Cardiac CHECKS AFTER DISCHARGE: CHECKS AFTER DISCHARGE: Check blood press - daily FOLLOW-UP: PHYSICIAN FOLLOW-UP: PCP AT [facility] 2 DAYS TREATMENT/EQUIPMENT ORDERS: ADAPTIVE EQUIPMENT NEEDED: Commode Physical Therapy For: Evalulation/Treatment Occupational Therapy For: Evaluation/Treatment Speech Language Pathology For: Evaluation/Treatment DISCHARGE MEDICATIONS: Home Meds Active Scripts Cholecalciferol (Vitamin D3) (Vitamin D3) 125 Mcg Capsule, 5000 UNIT PO DAILY for SUPPLEMENT for 30 Days, #30 CAP Prov:ITZEL MORALES MD 08/03/20 Ascorbic Acid (VITAMIN C) 500 Mg Tablet, 500 MG PO BID for SUPPLEMENT for 30 Days, #60 TAB Prov:ITZEL MORALES MD 08/03/20 Lactobacillus Rhamnosus Gg (CULTURELLE) 1 Each Cap.sprink, 1 CAP PO BID for SUPPLEMENT for 30 Days, #60 CAP Prov:ITZEL MORALES MD 08/03/20 Docusate Sodium (DOK) 100 Mg Capsule, 100 MG PO PRN BID PRN for HARD STOOLS for 30 Days, #60 CAP Prov:ITZEL MORALES MD 08/03/20 Zinc Sulfate (ORAZINC) 220 Mg Capsule, 440 MG PO DAILY for SUPPLEMENT for 30 Days, #60 CAP Prov:ITZEL MORALES MD 08/03/20 Benztropine Mesylate (BENZTROPINE MESYLATE) 1 Mg Tablet, 1 MG PO PRN BID PRN for EXTRAPYRAMIDAL SIDE EFFECTS for 30 Days, #60 TAB Prov:ITZEL MORALES MD 08/03/20 Quetiapine Fumarate (QUETIAPINE FUMARATE) 100 Mg Tablet, 400 MG PO QHS for MOOD for 30 Days, #120 TAB Prov:ITZEL MORALES MD 08/03/20 Olanzapine (OLANZAPINE ODT) 5 Mg Tab.rapdis, 5 MG PO PRN BID PRN for ANXIETY / AGITATION for 30 Days, #90 TAB Prov:ITZEL MORALES MD 08/03/20 Valproic Acid (VALPROIC ACID) 250 Mg Capsule, 250 MG PO BID for MOOD for 30 Days, #60 CAP Prov:ITZEL MORALES MD 08/03/20 Acetaminophen (TYLENOL) 325 Mg Tablet, 650 MG PO PRN Q4HRS PRN for TEMP OVER 100.4F OR MILD PAIN for 30 Days, #60 TAB Prov:ITZEL MORALES MD 08/03/20 Discontinued Scripts Levofloxacin (LEVOFLOXACIN) 500 Mg Tablet, 1 TAB PO DAILY, #7 TAB Prov:CHANEL LUGO MD 07/22/20 ITZEL MORALES MD Aug 03, 2020 12:04
[2020-08-03 12:41] VITALS: BP 175/95
[2020-08-03 15:00] VITALS: BP 184/106
--- NOTE | 2020-08-03 15:28 | NUR ---
This RN called report to BRITNI Del Toro of [place] at [phone].
--- NOTE | 2020-08-03 16:04 | NUR ---
Wound Care Wound Type/Assessment: patient see per wound care follow up. see wound assessment. patient has an unstageable pressure ulcer to the coccyx, the wound was cleansed, assessed, measured, and pictured. Patient scheduled to discharge today. Treatment Recommendations/Plan: Recommendations of cleansing the wound then apply Hydrofera blue with a foam over, change every other day. Offloading surface/device: A p-500 bed had been ordered for this patient but patient was not on bed at this time, most likely due to anticipated discharge. patient needs to be turning every 2 hours. patient turned to the left side at this time with a wedge. heels placed in an off-loading position with pillows. patient has hard darkened dry callous to bilateral heels. Recommended Referrals/Tests: None at this time as patient is scheduled to discharge today. Discharge Recommendations for dressings: Recommendations of continuing with the Hydrofera Blue and foam dressing. Hydrofera blue left in room for next dressing change. No other wounds noted. Bed lowered and call light in reach. Spoke with RN regarding POC.
--- NOTE | 2020-08-03 17:23 | NUR ---
Pt left unit at approx 1715 by stretcher via transportation. R TL IJ removed without complication. Discharge paperwork sent with pt at time of discharge. Addendum: 08/03/20 at 1726 by STEPHANIE JUNIOR RN Add to previous: Terrazas catheter remains in place.
--- NOTE | 2020-08-14 22:45 | PDOC3 ---
Discharge Summary Date of Admission: Jul 29, 2020 Date of Discharge: Aug 03, 2020 Follow-Up: 1-2 days Admitting Diagnosis comment: Chief Complaint Chief Complaint HOSPITAL SUMMARY date of admit 07-29-20 date of discharge 08-03-20 CONSULTS ID, GENERAL SURGERY COMPLICATION NONE D/C MEDS SEE MAR F/U CARE WITH FACILITY, SNF PCP IN 1-2 DAYS DISCHARE DX Septic shock - likely from gluteal ulcer vs pneumonia COVID 19. Given empiric antibiotics, fluids. RIJ CVC for pressors after failure of appropriate IVF resuscitation Small left pleural effusion and left lower lobe pneumonia, partially included on the vwnoh-kb-mwak. ON CT Gluteal ulcer - appears unstageable. Patient notably mostly bedbound with possible prior CVA on his CT head. Wound care, frequent turning q2hrs and IV antibiotics DENIS - vasomotor nephropathy from septic shock, will monitor renal function Acute encephalopathy - likely from septic shock, less likely CVA. Neurology recommended MRI, however no focal deficits found. Recommended against tPA Anemia - will check for iron, b12 Lactic acidosis - due to sepsis, will trend. 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 Given proximity of gluteal ulcer may need rectal tube if he begins to have BM PLAN FEN - regular diet PPX - heparin FULL CODE Dispo - 6th floor for septic shock likely from above DC Zosyn and Zyvox Monitor off antibiotic Monitor labs and cultures F/u labs and cults cont supportive care BACK TO FACILITY D/W RN D/C PLANNING 36 MIN History of Present Illness History of Present Illness Mr Gustafson is a 64yo M w/ PMHx schizophrenia, h/o heavy ETOH abuse, depression with anxiety, HTN, constipation who [facility] for un[facility]iveness. EMS was contacted as the patient was found unresponsive and shaking 20 minutes prior to their call. He believes its August 20[birth year] does know his name and birthdate. Due to his lack of appropriate response and tremors a code stroke was called and he underwent CT head and CT neck which were negative for acute pathology. Suspected chronic left basal ganglia infarct was noted. CTA negative for occlusion. Notably with temperature 95.1 F rectal. BP 74/47 heart rate 154. In ED he was not responsive to 2 fluid boluses, was started on empiric antibiotics and right IJ CVC was placed for pressor support. After his blood pressure improved he became more responsive and was moving all 4 extremities able to carry on a conversation and follow commands. He complains of weakness and tremors he cannot stop. He notes no loss of appetite no abdominal complaints. He does no chills no fevers. Some slight shortness of breath. No chest pain. He does have problems with urinary retention notes he is trying to urinate when he is unable to. He notes he is relatively bedbound 07/30: Patient evaluated bedside. Afebrile. Hemoglobin dropped from 8.9-7.1, likely delusional. Continue to monitor and transfuse at Hb <7. WBC improved, lactic acid improved. Plan to continue IV fluid until lactic acid clears. Continue antibiotics per ID. 08/10: Patient seen and evaluated bedside. He is COVID-19 positive. He is afebrile, breathing on room air. Blood pressure stable. Will move out of ICU today to our COVID-19 medical floor. If patient starts required O2 will initiate Decadron and consider remdesivir. Will provide supportive care, zinc, vitamin C, and vitamin D. Continue antibiotics, per ID. Discussed with RN. Vitals Vitals Vital Signs Date Time Temp Pulse Resp B/P (MAP) Pulse Ox O2 Delivery O2 Flow Rate FiO2 08/03/20 08:30 Room Air 08/03/20 07:00 98.1 93 18 160/95 (116) 97 98.1 08/03/20 02:55 4.0 Physical Exam Physical Exam GEN: sleepy but arousable male in nad HEENT: atraumatic, normocepalic ,normal conjunctivae. Oral cavity, pharynx has poor dentition. NECK: Supple, no JVD. LUNGS: Decreased at the bases. HEART: S1, S2, without murmur. ABDOMEN: nondistended,no guarding, no rebound with some decreased, but positive bowel sounds. : Terrazas in place EXTREMITIES: Without clubbing, cyanosis.trace edema SKIN: Warm to touch without generalized signs of rash. NEUROLOGIC: Nonfocal, answers questions, moves all extremities. PSYCHIATRIC: Affect was pleasant. IV: RIJ - clean General: Alert, Cooperative, No acute distress Heart: Regular rate Lungs: Clear Abdomen: Normal bowel sounds, Soft, No tenderness Extremities: No clubbing, No cyanosis Skin: Other (reviewed wound pictures with large decub ulcer, no obvious necrotic tissue) Assessment and Plan Assessmemt and Plan Problems Medical Problems: (1) Pneumonia Status: Acute (2) Septic shock Status: Acute FINAL DIAGNOSIS Problems Medical Problems: (1) Pneumonia Status: Acute (2) Septic shock Status: Acute Brief Hospital Course Mr. Gustafson is a 64 old [sex] who presented with [ ] CONDITION AT DISCHARGE: Improved Discharge Medications Current Medications Iohexol (Omnipaque 300 Mg/ml) 75 ml 1X ONCE IV Last administered on 07/29/20at 14:08; Start 07/29/20 at 13:45; Stop 07/29/20 at 13:46; Status DC Info (CONTRAST GIVEN -- Rx MONITORING) 1 each PRN DAILY PRN MC SEE COMMENTS; Start 07/29/20 at 13:45; Stop 07/31/20 at 13:44; Status DC Sodium Chloride 1,000 ml @ 1,000 mls/hr 1X ONCE IV Last administered on 07/29/20at 13:53; Start 07/29/20 at 13:45; Stop 07/29/20 at 14:44; Status DC Norepinephrine Bitartrate 8 mg/ Dextrose 258 ml @ 15.48 mls/ hr 1X ONCE IV Last administered on 07/29/20at 14:31; Start 07/29/20 at 14:15; Stop 07/30/20 at 06:54; Status DC Piperacillin Sod/ Tazobactam Sod (Zosyn Per Pharmacy) 1 each PRN DAILY PRN MC SEE COMMENTS; Start 07/29/20 at 14:30; Stop 08/02/20 at 13:08; Status DC Piperacillin Sod/ Tazobactam Sod 3.375 gm/Sodium Chloride 50 ml @ 100 mls/hr 1X ONCE IV Last administered on 07/29/20at 14:39; Start 07/29/20 at 14:30; Stop 07/29/20 at 14:59; Status DC Vancomycin HCl (Vanco Per Pharmacy) 1 each PRN DAILY PRN MC SEE COMMENTS Last administered on 07/29/20at 17:00; Start 07/29/20 at 15:00; Stop 07/29/20 at 18:39; Status DC Sodium Chloride 1,000 ml @ 1,000 mls/hr 1X ONCE IV Last administered on 07/29/20at 15:06; Start 07/29/20 at 15:00; Stop 07/29/20 at 15:59; Status DC Sodium Chloride 1,000 ml @ 1,000 mls/hr 1X ONCE IV Last administered on 07/29/20at 17:33; Start 07/29/20 at 15:00; Stop 07/29/20 at 15:59; Status DC Sodium Chloride (NORMAL SALINE FLUSH for STERILE FIELD) 10 ml STK-MED ONCE .ROUTE ; Start 07/29/20 at 15:08; Stop 07/29/20 at 15:08; Status DC Vancomycin HCl 2 gm/Sodium Chloride 500 ml @ 250 mls/hr 1X ONCE IV Last administered on 07/29/20at 16:03; Start 07/29/20 at 15:30; Stop 07/29/20 at 17:29; Status DC Sodium Chloride 1,000 ml @ 1,000 mls/hr 1X ONCE IV ; Start 07/29/20 at 16:15; Stop 07/29/20 at 17:14; Status DC Sodium Chloride 1,000 ml @ 100 mls/hr Q10H IV Last administered on 07/30/20at 05:35; Start 07/29/20 at 16:45; Stop 07/29/20 at 20:44; Status DC Piperacillin Sod/ Tazobactam Sod 3.375 gm/Sodium Chloride 50 ml @ 100 mls/hr Q6HRS IV Last administered on 08/02/20at 12:34; Start 07/29/20 at 19:30; Stop 08/02/20 at 13:07; Status DC Vancomycin HCl 1.25 gm/Sodium Chloride 250 ml @ 167 mls/hr Q24H IV ; Start 07/30/20 at 16:00; Stop 07/30/20 at 06:46; Status DC Vancomycin HCl (Vancomycin Trough Level) 1 each 1X ONCE MC ; Start 07/31/20 at 15:30; Stop 07/31/20 at 15:31; Status Cancel Vancomycin HCl (Vanco Per Pharmacy) 1 each PRN DAILY PRN MC SEE COMMENTS; Start 07/29/20 at 18:45; Stop 07/30/20 at 06:46; Status DC Albumin Human 500 ml @ 125 mls/hr 1X ONCE IV Last administered on 07/29/20at 21:37; Start 07/29/20 at 18:45; Stop 07/29/20 at 22:44; Status DC Heparin Sodium (Porcine) (Heparin Sodium) 5,000 unit Q8HRS SQ Last administered on 08/03/20at 14:30; Start 07/29/20 at 22:00; Stop 08/03/20 at 17:32; Status DC Ondansetron HCl (Zofran) 4 mg PRN Q4HRS PRN IV NAUSEA/VOMITING; Start 07/29/20 at 20:45; Stop 08/03/20 at 17:32; Status DC Acetaminophen (Tylenol) 650 mg PRN Q4HRS PRN PO TEMP OVER 100.4F OR MILD PAIN Last administered on 07/31/20at 15:48; Start 07/29/20 at 20:45; Stop 08/03/20 at 17:32; Status DC Docusate Sodium (Colace) 100 mg PRN BID PRN PO HARD STOOLS; Start 07/29/20 at 20:45; Stop 08/03/20 at 17:32; Status DC Psyllium Hydrophilic Mucilloid (Metamucil Fiber Packet) 1 pkt QHS PO Last administered on 08/02/20at 20:53; Start 07/29/20 at 21:00; Stop 08/03/20 at 17:32; Status DC Olanzapine (ZyPREXA ZYDIS) 5 mg PRN BID PRN PO ANXIETY / AGITATION; Start 07/29/20 at 20:45; Stop 08/03/20 at 17:32; Status DC Benztropine Mesylate (Cogentin) 1 mg PRN BID PRN IM EXTRAPYRAMIDAL SIDE EFFECTS; Start 07/29/20 at 21:00; Stop 07/29/20 at 21:13; Status DC Diphenhydramine HCl (Benadryl) 25 mg PRN Q6HRS PRN IVP SHIVERING; Start 07/29/20 at 21:00; Stop 08/03/20 at 17:32; Status DC Haloperidol (Haldol) 2 mg BID PO Last administered on 08/03/20at 08:35; Start 07/29/20 at 21:00; Stop 08/03/20 at 17:32; Status DC Quetiapine Fumarate (SEROquel) 400 mg QHS PO Last administered on 08/02/20at 20:54; Start 07/29/20 at 21:15; Stop 08/03/20 at 17:32; Status DC Valproic Acid (Depakene) 250 mg BID PO Last administered on 08/03/20at 08:35; Start 07/29/20 at 21:15; Stop 08/03/20 at 17:32; Status DC Benztropine Mesylate (Cogentin) 1 mg BID IM Last administered on 07/31/20at 09:20; Start 07/29/20 at 21:15; Stop 07/31/20 at 10:48; Status DC Vitamin D (Vitamin D3) 5,000 unit DAILY PO Last administered on 08/03/20at 08:35; Start 07/30/20 at 09:00; Stop 08/03/20 at 17:32; Status DC Linezolid/Dextrose 300 ml @ 300 mls/hr Q12HR IV Last administered on 08/02/20at 09:19; Start 07/30/20 at 09:00; Stop 08/02/20 at 13:07; Status DC Lactobacillus Rhamnosus (Culturelle) 1 cap BID PO Last administered on 08/03/20at 08:35; Start 07/30/20 at 09:00; Stop 1/13/21 at 17:32; Status DC Ascorbic Acid (Vitamin C) 500 mg BID PO Last administered on 08/03/20at 08:35; Start 07/31/20 at 09:00; Stop 08/03/20 at 17:32; Status DC Zinc Sulfate (Orazinc) 440 mg DAILY PO Last administered on 08/03/20at 08:35; Start 07/31/20 at 09:00; Stop 08/03/20 at 17:32; Status DC Benztropine Mesylate (Cogentin) 1 mg PRN BID PRN PO EXTRAPYRAMIDAL SIDE EFFECTS; Start 07/31/20 at 11:00; Stop 08/03/20 at 17:32; Status DC Active Scripts Active Vitamin D3 (Cholecalciferol (Vitamin D3)) 125 Mcg Capsule 5,000 Unit PO DAILY 30 Days Vitamin C (Ascorbic Acid) 500 Mg Tablet 500 Mg PO BID 30 Days Culturelle (Lactobacillus Rhamnosus Gg) 1 Each Cap.sprink 1 Cap PO BID 30 Days Dok (Docusate Sodium) 100 Mg Capsule 100 Mg PO PRN BID PRN 30 Days Orazinc (Zinc Sulfate) 220 Mg Capsule 440 Mg PO DAILY 30 Days Benztropine Mesylate 1 Mg Tablet 1 Mg PO PRN BID PRN 30 Days Quetiapine Fumarate 100 Mg Tablet 400 Mg PO QHS 30 Days Olanzapine Odt (Olanzapine) 5 Mg Tab.rapdis 5 Mg PO PRN BID PRN 30 Days Valproic Acid 250 Mg Capsule 250 Mg PO BID 30 Days Tylenol (Acetaminophen) 325 Mg Tablet 650 Mg PO PRN Q4HRS PRN 30 Days Allergies Allergies Coded Allergies Type Severity Reaction Last Updated Verified No Known Drug Allergies 01/16/19 No Disposition/Orders: Other (D/C TO SNF) Justicifation of Admission Dx: Justifications for Admission: Justification of Admission Dx: N/A ITZEL MORALES MD Aug 14, 2020 22:45
== END 2020-08-03 17:32 | DRG 871 ==
LOC: ER 13:22 → 1 WEST ICU 16:25 → 6 SOUTH 07-31 10:40
PROVIDERS: ADMIT Internal Medicine; ATTEND Internal Medicine
PROC: 02HV33Z Insertion of Infusion Device into Superior Vena Cava, Percutaneous Approach (ICD-10-PCS; principal; 2020-07-29)
PROC: B548ZZA Ultrasonography of Superior Vena Cava, Guidance (ICD-10-PCS; 2020-07-29)
DX: A41.89 Other specified sepsis (principal); R65.21 Severe sepsis with septic shock; U07.1 COVID-19; N17.0 Acute kidney failure with tubular necrosis; J12.82 Pneumonia due to coronavirus disease 2019; E87.2 Acidosis; J90 Pleural effusion, not elsewhere classified; G93.40 Encephalopathy, unspecified; D64.9 Anemia, unspecified; F17.210 Nicotine dependence, cigarettes, uncomplicated; F20.9 Schizophrenia, unspecified; I10 Essential (primary) hypertension; M48.02 Spinal stenosis, cervical region; N28.1 Cyst of kidney, acquired; F10.20 Alcohol dependence, uncomplicated; F41.8 Other specified anxiety disorders; L89.300 Pressure ulcer of unspecified buttock, unstageable; G24.9 Dystonia, unspecified; G25.71 Drug induced akathisia; T45.0X5A Adverse effect of antiallergic and antiemetic drugs, initial encounter; K59.00 Constipation, unspecified; N32.89 Other specified disorders of bladder; L89.100 Pressure ulcer of unspecified part of back, unstageable; F22 Delusional disorders; Z74.01 Bed confinement status; Z82.49 Family history of ischemic heart disease and other diseases of the circulatory system; Z86.73 Personal history of transient ischemic attack (TIA), and cerebral infarction without residual deficits; Y92.89 Other specified places as the place of occurrence of the external cause
CPT/HCPCS: 36415; 36556; 70450; 70496; 70498; 71045; 71260; 74177; 80048; 80053; 81001; 82306; 82607; 83540; 83550; 83605; 84443; 84484; 85007; 85025; 85610; 85730; 93005; 96361; 96365; 96366; 96368; 99291; J0515; J1644; J2020; J2543; J3370; J3490; J7030; J7040; J7060; P9045; Q9967; U0003; G0378

== ENCOUNTER 2020-09-01 10:45 | Emergency (ER) | payer MEDICARE, MEDICAID ==
[~2020-09-01] VITALS: Ht 177.8 cm; Wt 59.0 kg
[~2020-09-01 10:45] MED LIST changes: +ACET325T9 PO; +ASCO500T4 PO; +BENZ1TAB5 PO; +CHOL500051 PO; +DOCU-153 PO; +LACT1CAP19 PO; +OLAN5TAB7 PO; +QUET100T PO; +VALP250C2 PO; +ZINC220C2 PO
--- NOTE | 2020-09-01 11:05 | PHYS DOC ---
Past Medical History Past Medical History: Alcoholism, Anxiety, Constipation, Hypertension, Sc hizophrenia Additional Past Medical Histor: FALLS Past Surgical History: No Surgical History Smoking Status: Unknown if ever smoked Alcohol Use: None Drug Use: None General Adult EDM: Chief Complaint: WEAKNESS/GENERALIZED HPI: HPI: 64-year-old male significant history of schizophrenia, alcohol abuse, hypertension, depression, anxiety, who presents for evaluation of generalized weakness from baseline. Patient self has no other acute medical complaints. He is a chronic sacral decubitus ulcer, currently on antibiotics per SEP. No chest pain, dyspnea, abdominal pain, nausea or vomiting. No headache. Review of Systems: Review of Systems: Gen: No fever, chills. Eyes: No blurred vision, diplopia. ENT: No nasal congestion, sore throat. CV: No CP, palpitations. Resp. No SOB, cough. GI: No abd pain, N/V. Neuro: No MCCURDY, dizziness.reports generalized weakness. MSK: No myalgia, arthralgia, back pain. Remainder of systems reviewed and negative unless otherwise specified. Heart Score: Risk Factors: Risk Factors: DM, Current or recent (<one month) smoker, HTN, HLP, family history of CAD, obesity. Risk Scores: Score 0 - 3: 2.5% MACE over next 6 weeks - Discharge Home Score 4 - 6: 20.3% MACE over next 6 weeks - Admit for Clinical Observation Score 7 - 10: 72.7% MACE over next 6 weeks - Early Invasive Strategies Allergies: Allergies: Allergies Coded Allergies Type Severity Reaction Last Updated Verified No Known Drug Allergies 01/16/19 No Physical Exam: PE: Gen: NAD. Head: NC/AT. Eyes: No scleral icterus. No conjunctival injection. PERRL. ENT: MMM. Posterior OP clear. Neck: Supple. NT. No meningismus. CV: RRR. Peripheral pulses intact. Resp: CTAB. Abd: Soft. NT. ND. : Terrazas catheter in place. Stage III-IV sacral decubitus ulcer without surrounding cellulitic changes. MSK: No peripheral cyanosis. Neuro: A&Ox2. Mild but symmetrically weak throughout. Pill-rolling tremor of the upper extremities. Skin. Warm. Dry. Psych: Appropriate mood & affect. Current Patient Data: Labs: Laboratory Tests Test 09/01/20 10:54 09/01/20 10:55 Urine Collection Type Unknown Urine Color Yellow Urine Clarity Clear Urine pH 7.5 (<5.0-8.0) Urine Specific [place] 1.015 (1.000-1.030) Urine Protein >=300 mg/dL (NEG-TRACE) Urine Glucose (UA) Negative mg/dL (NEG) Urine Ketones (Stick) Negative mg/dL (NEG) Urine Blood Moderate (NEG) Urine Nitrite Negative (NEG) Urine Bilirubin Negative (NEG) Urine Urobilinogen Dipstick 1.0 mg/dL (0.2 mg/dL) Urine Leukocyte Esterase Moderate (NEG) Urine RBC 6-10 /HPF (0-2) Urine WBC >40 /HPF (0-4) Urine Squamous Epithelial Cells Occ /LPF Urine Renal Epithelial Cells Occ /LPF Urine Bacteria Few /HPF (0-FEW) White Blood Count 12.8 x10^3/uL (4.0-11.0) Red Blood Count 2.90 x10^6/uL (4.30-5.70) Hemoglobin 8.2 g/dL (13.0-17.5) Hematocrit 25.3 % (39.0-53.0) Mean Corpuscular Volume 87 fL (79-100) Mean Corpuscular Hemoglobin 28 pg (25-35) Mean Corpuscular Hemoglobin Concent 33 g/dL (31-37) Red Cell Distribution Width 15.8 % (11.5-14.5) Platelet Count 378 x10^3/uL (140-400) Neutrophils (%) (Auto) 73 % (31-73) Lymphocytes (%) (Auto) 19 % (24-48) Monocytes (%) (Auto) 7 % (0-9) Eosinophils (%) (Auto) 1 % (0-3) Basophils (%) (Auto) 1 % (0-3) Neutrophils # (Auto) 9.4 x10^3/uL (1.8-7.7) Lymphocytes # (Auto) 2.4 x10^3/uL (1.0-4.8) Monocytes # (Auto) 0.9 x10^3/uL (0.0-1.1) Eosinophils # (Auto) 0.1 x10^3/uL (0.0-0.7) Basophils # (Auto) 0.1 x10^3/uL (0.0-0.2) Sodium Level 140 mmol/L (136-145) Chloride Level 100 mmol/L (98-107) Carbon Dioxide Level 33 mmol/L (21-32) Anion Gap 7 (6-14) Blood Urea Nitrogen 12 mg/dL (8-26) Estimated GFR (Cockcroft-Gault) 91.0 BUN/Creatinine Ratio 12 (6-20) Glucose Level 95 mg/dL (70-99) Calcium Level 8.7 mg/dL (8.5-10.1) Total Bilirubin 0.2 mg/dL (0.2-1.0) Aspartate Amino Transf (AST/SGOT) 15 U/L (15-37) Alkaline Phosphatase 52 U/L (46-116) Total Protein 6.8 g/dL (6.4-8.2) Albumin 2.4 g/dL (3.4-5.0) Albumin/Globulin Ratio 0.5 (1.0-1.7) EKG: EKG: [] Radiology/Procedures: Radiology/Procedures: CT HEAD/BRAIN WO Date: 09/01/2020 11:22 AM Clinical Indication: Reason: Weakness-TREMORS / Spl. Instructions: / History: Comparison: 07/29/2020. Technique: 5 mm axial tomographic images were obtained of the head without contrast. These were viewed on brain and bone windows. One or more of the following dose reduction techniques were utilized: Automated exposure control (AEC), Adjustment of mA and/or kV according to patient size, Use of iterative reconstruction technique such as ASiR, CT scan done according to ALARA and image gently/image wisely Findings: Mild generalized cerebral and cerebellar volume loss. Mild nonspecific periventricular hypoattenuation, most commonly seen with chronic small vessel ischemic disease. Calcified atherosclerosis of the bilateral cavernous and p araclinoid internal carotid arteries and intracranial vertebral arteries. No intra- or extra-axial mass or fluid collection. No acute hemorrhage. The ventricles are normal in size, shape, and morphology. The alexander-white matter junction is normal. The subarachnoid cisterns are patent. The visualized paranasal sinuses are normal. The visualized portions of the orbits and globes are normal. The mastoid air cells are clear. The design center consultant topogram shows no lytic lesion or fracture. Impression: No acute intracranial process. Mild cerebral volume loss. Mild chronic small vessel ischemic disease. Electronically signed by: Duncan James MD (09/01/2020 11:47 AM) [id number] XR CHEST 1V History: Reason: Weakness,. AMS./ Spl. Instructions: / History: Comparison: July 29, 2020 Findings: No consolidation or pleural effusion. Unchanged heart size. No pneumothorax. Impression: 1. No acute cardiopulmonary process. Electronically signed by: Ricardo Alonzo DO (09/01/2020 12:04 PM) [id number] Course & Med Decision Making: Course & Med Decision Making Pertinent Labs and Imaging studies reviewed. (See chart for details) In summary, 64-year-old male with schizophrenia, who presents for evaluation of generalized weakness from baseline. No other acute medical complaints. He has no lateralizing symptoms on neurological exam. He has a pill-rolling tremor of both upper extremities. He has a sacral decubitus ulcer that does not appear to be acutely infected, currently on antibiotics per SEP. Lab work today is otherwise unrevealing as well. Urinalysis is a minimally contaminated specimen with pyuria. Will manage conservatively with antibiotics, given Rocephin 1 g IV here. Chest x-ray clear. CT head without contrast was negative for acute pathology. He is otherwise nontoxic-appearing. He is stable for discharge to his facility. Will prescribe Vantin. Outpatient follow-up. Return precautions given. Gifty Disclaimer: Gifty Disclaimer: This electronic medical record was generated, in whole or in part, using a voice recognition dictation system. Departure Departure Impression: Primary Impression: Generalized weakness Additional Impression: UTI (urinary tract infection) Disposition: 03 DC/TRF TO SNF Condition: STABLE Referrals: LISA CASTAÑEDA MD (PCP) Patient Instructions: Urinary Tract Infection, Fuok-bb-Aprs, Weakness, Exih-iv-Vmqh Scripts Cefpodoxime Proxetil (CEFPODOXIME PROXETIL) 100 Mg/5 Ml Susp.recon 1 TAB PO BID for 10 Days, #20 TAB 0 Refills Prov: FELIX HEMPHILL DO 09/01/20 FELIX HEMPHILL DO Sep 01, 2020 11:05
[2020-09-01 11:23] LABS: BILIRUBIN,URINE NEGATIVE (NEG); CLARITY,URINE CLEAR; COLOR,URINE YELLOW; NITRITE,URINE NEGATIVE (NEG); PH,URINE 7.5 (<5.0-8.0); PROTEIN,URINE >=300 mg/dL (NEG-TRACE)
[2020-09-01 11:24] LABS: BASO # 0.1 x10^3/uL (0.0-0.2); BASO % 1 % (0-3); EOS # 0.1 x10^3/uL (0.0-0.7); EOS % 1 % (0-3); HEMATOCRIT 25.3 % (39.0-53.0); HEMOGLOBIN 8.2 g/dL (13.0-17.5); LYMPH # 2.4 x10^3/uL (1.0-4.8); LYMPH % 19 % (24-48); MEAN CORPUSCULAR HEMOGLOBIN 28 pg (25-35); MEAN CORPUSCULAR HGB CONC 33 g/dL (31-37); MEAN CORPUSCULAR VOLUME 87 fL (79-100); MONO # 0.9 x10^3/uL (0.0-1.1); MONO % 7 % (0-9); NEUT # 9.4 x10^3/uL (1.8-7.7); NEUT % 73 % (31-73); PLATELET COUNT 378 x10^3/uL (140-400); RED CELL DISTRIBUTION WIDTH 15.8 % (11.5-14.5); WHITE BLOOD COUNT 12.8 x10^3/uL (4.0-11.0)
[2020-09-01 11:32] LABS: CALCIUM 8.7 mg/dL (8.5-10.1); POTASSIUM 4.2 mmol/L (3.5-5.1)
[2020-09-01 11:37] LABS: ALBUMIN 2.4 g/dL (3.4-5.0); ALBUMIN/GLOBULIN RATIO 0.5 (1.0-1.7); MAGNESIUM 2.3 mg/dL (1.8-2.4); TOTAL BILIRUBIN 0.2 mg/dL (0.2-1.0); TOTAL PROTEIN 6.8 g/dL (6.4-8.2)
[2020-09-01 11:41] LABS: BACTERIA,URINE FEW /HPF (0-FEW); WBC,URINE >40 /HPF (0-4)
--- NOTE | 2020-09-01 11:49 | RAD ---
CT HEAD/BRAIN WO Date: 09/01/2020 11:22 AM Clinical Indication: Reason: Weakness-TREMORS / Spl. Instructions: / History: Comparison: 07/29/2020. Technique: 5 mm axial tomographic images were obtained of the head without contrast. These were view ed on brain and bone windows. One or more of the following dose reduction techniques were utilized: A utomated exposure control (AEC), Adjustment of mA and/or kV according to patient size, Use of iterati ve reconstruction technique such as ASiR, CT scan done according to ALARA and image gently/image salmeron ly Findings: Mild generalized cerebral and cerebellar volume loss. Mild nonspecific periventricular hypoattenuatio n, most commonly seen with chronic small vessel ischemic disease. Calcified atherosclerosis of the bi lateral cavernous and paraclinoid internal carotid arteries and intracranial vertebral arteries. No intra- or extra-axial mass or fluid collection. No acute hemorrhage. The ventricles are normal in size, shape, and morphology. The alexander-white matter junction is normal. The subarachnoid cisterns are patent. The visualized paranasal sinuses are normal. The visualized portions of the orbits and globes are no rmal. The mastoid air cells are clear. The vp sales topogram shows no lytic lesion or fracture. Impression: No acute intracranial process. Mild cerebral volume loss. Mild chronic small vessel ischemic disease. Electronically signed by: Duncan James MD (09/01/2020 11:47 AM) [id number]
--- NOTE | 2020-09-01 12:06 | RAD ---
XR CHEST 1V History: Reason: Weakness,. AMS./ Spl. Instructions: / History: Comparison: July 29, 2020 Findings: No consolidation or pleural effusion. Unchanged heart size. No pneumothorax. Impression: 1. No acute cardiopulmonary process. Electronically signed by: Ricardo Alonzo DO (09/01/2020 12:04 PM) [id number]
[2020-09-01] MEDS ORDERED: CEFP100S3 PO (12:47)
[2020-09-01] MEDS ORDERED: cefTRIAXone IV Push 1 GM VIAL. IVP ONE (13:00)
[2020-09-01 16:51] VITALS: BP 110/55
== END 2020-09-01 17:15 | disposition home or self-care (01) ==
LOC: ER 10:45
DX: N39.0 Urinary tract infection, site not specified (principal); R53.1 Weakness; I10 Essential (primary) hypertension; F20.9 Schizophrenia, unspecified; F10.10 Alcohol abuse, uncomplicated; Y90.9 Presence of alcohol in blood, level not specified
CPT/HCPCS: 36415; 70450; 71045; 80053; 81001; 83735; 85025; 96374; 99285; J0696

== ENCOUNTER 2020-09-25 15:52 | Inpatient (IN) | payer MEDICARE, MEDICAID ==
[~2020-09-25] VITALS: Ht 190.5 cm; Wt 81.1 kg
[~2020-09-25 15:52] MED LIST changes: +CEFP100S3 PO
[2020-09-25] MEDS ORDERED: IV NORMAL SALINE 1000ML BAG 1,000 ML IV ONE ×3 (16:00→16:45)
[2020-09-25] MEDS ORDERED: PIPERACILLIN/TAZOBACTAM 3.375 GM in IV NORMAL SALINE 50ML 50 ML IV ONE (16:00)
[2020-09-25 16:11] LABS: BASO # 0.1 x10^3/uL (0.0-0.2); BASO % 1 % (0-3); EOS # 0.1 x10^3/uL (0.0-0.7); EOS % 1 % (0-3); HEMATOCRIT 26.4 % (39.0-53.0); HEMOGLOBIN 8.6 g/dL (13.0-17.5); LYMPH # 1.7 x10^3/uL (1.0-4.8); LYMPH % 16 % (24-48); MEAN CORPUSCULAR HEMOGLOBIN 29 pg (25-35); MEAN CORPUSCULAR HGB CONC 33 g/dL (31-37); MEAN CORPUSCULAR VOLUME 88 fL (79-100); MONO # 1.5 x10^3/uL (0.0-1.1); MONO % 13 % (0-9); NEUT # 7.5 x10^3/uL (1.8-7.7); NEUT % 69 % (31-73); PLATELET COUNT 234 x10^3/uL (140-400); RED BLOOD COUNT 3.01 x10^6/uL (4.30-5.70); RED CELL DISTRIBUTION WIDTH 16.6 % (11.5-14.5); WHITE BLOOD COUNT 10.9 x10^3/uL (4.0-11.0)
--- NOTE | 2020-09-25 16:13 | PHYS DOC ---
Past Medical History Past Medical History: Alcoholism, Anxiety, Constipation, Hypertension, Sc hizophrenia Additional Past Medical Histor: FALLS Past Surgical History: No Surgical History Smoking Status: Unknown if ever smoked Alcohol Use: None Drug Use: None General Adult EDM: Chief Complaint: ALTERED MENTAL STATUS HPI: HPI: Patient is [id number] male with significant history of schizophrenia, alcohol abuse, hypertension, depression, anxiety, who presents for evaluation of generalized weakness from baseline, fever and low blood pressure. Patient had COVID-19 infection in the beginning of July, was admitted here due to septic shock, pneumonia, decubitus ulcer on his buttock. Patient was again sent to ER here in August due to weakness, confusion. Patient would discharge back to detention with 10-day course of Vantin. Patient finished the antibiotic yesterday. Today detention staff found him to be more confused, her blood pressure was low, he appeared to have a fever. EMS stated that his blood pressure was 75/40 when they got there. EMS put an IV in him and gave him 500 cc normal saline on route here. detention staff reported that patient had no t urinated in [facility] in 24-hour. Review of Systems: Review of Systems: Constitutional: Denies fever or chills. [] Eyes: Denies change in visual acuity. [] HENT: Denies nasal congestion or sore throat. [] Respiratory: Denies cough or shortness of breath. [] Cardiovascular: Denies chest pain or edema. [] GI: Denies abdominal pain, nausea, vomiting, bloody stools or diarrhea. [] : Denies dysuria. [] Musculoskeletal: Denies back pain or joint pain. [] Integument: Denies rash. [] Neurologic: Denies headache, focal weakness or sensory changes. [] Endocrine: Denies polyuria or polydipsia. [] Lymphatic: Denies swollen glands. [] Psychiatric: Denies depression or anxiety. [] Heart Score: C/O Chest Pain: N/A Risk Factors: Risk Factors: DM, Current or recent (<one month) smoker, HTN, HLP, family history of CAD, obesity. Risk Scores: Score 0 - 3: 2.5% MACE over next 6 weeks - Discharge Home Score 4 - 6: 20.3% MACE over next 6 weeks - Admit for Clinical Observation Score 7 - 10: 72.7% MACE over next 6 weeks - Early Invasive Strategies Current Medications: Current Medications Medications (Trade) Dose Ordered Sig/Jeffrey Start Time Stop Time Status Last Admin Dose Admin Acetaminophen (Tylenol Supp) 975 mg 1X ONCE 09/25/20 16:15 09/25/20 16:16 Piperacillin Sod/ Tazobactam Sod 3.375 gm/Sodium Chloride 50 ml @ 100 mls/hr 1X ONCE 09/25/20 16:00 09/25/20 16:29 Sodium Chloride 1,000 ml @ 1,000 mls/ hr 1X ONCE 09/25/20 16:00 09/25/20 16:59 Allergies: Allergies: Allergies Coded Allergies Type Severity Reaction Last Updated Verified No Known Drug Allergies 01/16/19 No Physical Exam: PE: Constitutional: Well developed, well nourished, mild acute distress, toxic appearance. [] HENT: Normocephalic, atraumatic, bilateral external ears normal, oropharynx moist, no oral exudates, nose normal. [] Eyes: PERRLA, EOMI, conjunctiva normal, no discharge. [] Neck: Normal range of motion, no tenderness, supple, no stridor. [] Cardiovascular: tachycardia, Heart rate regular rhythm, no murmur [] Lungs & Thorax: Bilateral breath sounds clear to auscultation [] Abdomen: Bowel sounds normal, soft, no tenderness, no masses, no pulsatile masses. Indwelling balderas catheter in place. Skin: Warm, dry, no erythema, no rash. [] Back: No tenderness, no CVA tenderness. STAGE 4 DECUBITUS ULCER ON BUTTOCK AREA. Extremities: No tenderness, no cyanosis, no clubbing, ROM intact, no edema. [] Neurologic: Alert. awale. shaking with pill rolling tremors in his hands, confused Psychologic: Affect normal, judgement normal, mood normal. [] Current Patient Data: Labs: Laboratory Tests Test 09/25/20 16:00 09/25/20 16:27 White Blood Count 10.9 x10^3/uL Red Blood Count 3.01 x10^6/uL Hemoglobin 8.6 g/dL Hematocrit 26.4 % Mean Corpuscular Volume 88 fL Mean Corpuscular Hemoglobin 29 pg Mean Corpuscular Hemoglobin Concent 33 g/dL Red Cell Distribution Width 16.6 % Platelet Count 234 x10^3/uL Neutrophils (%) (Auto) 69 % Lymphocytes (%) (Auto) 16 % Monocytes (%) (Auto) 13 % Eosinophils (%) (Auto) 1 % Basophils (%) (Auto) 1 % Neutrophils # (Auto) 7.5 x10^3/uL Lymphocytes # (Auto) 1.7 x10^3/uL Monocytes # (Auto) 1.5 x10^3/uL Eosinophils # (Auto) 0.1 x10^3/uL Basophils # (Auto) 0.1 x10^3/uL Prothrombin Time 14.7 SEC Prothromb Time International Ratio 1.2 Activated Partial Thromboplast Time 32 SEC Sodium Level 140 mmol/L Potassium Level 4.3 mmol/L Chloride Level 99 mmol/L Carbon Dioxide Level 28 mmol/L Anion Gap 13 Blood Urea Nitrogen 72 mg/dL Creatinine 5.7 mg/dL Estimated GFR (Cockcroft-Gault) 12.2 BUN/Creatinine Ratio 13 Glucose Level 143 mg/dL Lactic Acid Level 1.8 mmol/L Calcium Level 8.6 mg/dL Total Bilirubin 0.3 mg/dL Aspartate Amino Transf (AST/SGOT) 44 U/L Alanine Aminotransferase (ALT/SGPT) 27 U/L Alkaline Phosphatase 50 U/L Troponin I Quantitative < 0.017 ng/mL Total Protein 8.0 g/dL Albumin 2.5 g/dL Albumin/Globulin Ratio 0.5 Lipase 87 U/L Valproic Acid (Depakene) Level 57 mcg/mL Valproic Acid Last Dose Date 09/24/20 Valproic Acid Last Dose Time 1900 Urine Collection Type U cath Urine Color Yellow Urine Clarity Cloudy Urine pH 6.0 Urine Specific [place] 1.020 Urine Protein >=300 mg/dL Urine Glucose (UA) Negative mg/dL Urine Ketones (Stick) Negative mg/dL Urine Blood Large Urine Nitrite Negative Urine Bilirubin Negative Urine Urobilinogen Dipstick 1.0 mg/dL Urine Leukocyte Esterase Large Urine RBC 1-2 /HPF Urine WBC Tntc /HPF Urine Squamous Epithelial Cells None /LPF Urine Bacteria Many /HPF Urine Mucus Marked /LPF Urine Yeast Present /HPF Current Medications Medications (Trade) Dose Ordered Sig/Jeffrey Route PRN Reason Start Time Stop Time Status Last Admin Dose Admin Piperacillin Sod/ Tazobactam Sod 3.375 gm/Sodium Chloride 50 ml @ 100 mls/hr 1X ONCE IV 09/25/20 16:00 09/25/20 16:29 DC 09/25/20 16:20 Sodium Chloride 1,000 ml @ 1,000 mls/ hr 1X ONCE IV 09/25/20 16:30 09/25/20 17:29 DC 09/25/20 16:21 Sodium Chloride 1,000 ml @ 1,000 mls/ hr 1X ONCE IV 09/25/20 16:00 09/25/20 16:59 DC 09/25/20 16:20 Acetaminophen (Tylenol Supp) 975 mg 1X ONCE OK 09/25/20 16:15 09/25/20 16:16 DC 09/25/20 16:21 Benztropine Mesylate (Cogentin) 2 mg 1X STAT IV 09/25/20 16:15 09/25/20 16:17 DC 09/25/20 16:23 Sodium Chloride 1,000 ml @ 1,000 mls/hr 1X ONCE IV 09/25/20 16:45 09/25/20 17:44 DC 09/25/20 16:45 Sodium Chloride 500 ml @ 500 mls/hr 1X ONCE IV 09/25/20 17:00 09/25/20 17:59 DC 09/25/20 17:00 Ondansetron HCl (Zofran) 4 mg PRN Q8HRS PRN IV NAUSEA/VOMITING 09/25/20 18:00 09/26/20 17:59 Sodium Chloride 1,000 ml @ 125 mls/hr Q8H IV 09/25/20 18:00 09/26/20 17:59 EKG: EKG: EKG was done, heart rate about 156 bpm, sinus tachycardia, no ST segment elevation. Radiology/Procedures: Radiology/Procedures: [][facility] [address] [place], [place] [id number] IMAGING REPORT Signed PATIENT: EDMUND WAGONER ACCOUNT: [id number] : 1955 LOCATION: ER AGE: 64 SEX: M EXAM STATUS: PRE ER ORD. PHYSICIAN: GILLIAN BELLE DO REASON: sepsis, fever PROCEDURE: PORTABLE CHEST 1V Exam: Chest one view INDICATION: Sepsis, fever TECHNIQUE: Frontal view of the chest Comparisons: 09/01/2020 FINDINGS: The cardiomediastinal silhouette and pulmonary vessels are within normal limits. The lung and pleural spaces are clear. IMPRESSION: No acute cardiopulmonary process. Electronically signed by: Bimal Alvarez MD (09/25/2020 4:16 PM) [facility] DICTATED and SIGNED BY: BIMAL ALVAREZ MD DATE: 09/25/20 [id number] 0 Central Line placement procedure: Indication: Vascular access Consent: The patient provided consent for this procedure. Procedure: The patient was positioned appropriately and the skin over the left neck area, left IJ was prepped and draped in a sterile fashion. Local anesthesia was used. Ultrasound guidance utilized. A large bore needle was used to identify the vein. A guide wire was then inserted into the vein through the needle. A triple lumen catheter was then inserted into the vessel over the guide wire using the Seldinger technique. All ports showed good, free flowing blood return and were flushed with saline solution. The catheter was then securely fastened to the skin with sutures and covered with a sterile dressing. A post procedure X-ray was ordered. The patient tolerated the procedure well. Complications: THE TIP OF THE CATHETER WAS IN THE LEFT SUBCLAVIAN VEIN. IT WAS READJUSTED AND LOCATED APPROPRIATELY IN THE SVC area. [facility] [address] [place] [address] IMAGING REPORT Signed PATIENT: EDMUND WAGONER ACCOUNT: [id number] : 1955 LOCATION: ER AGE: 64 SEX: M EXAM STATUS: REG ER ORD. PHYSICIAN: GILLIAN BELLE DO REASON: CENTRAL LINE PLACEMENT PROCEDURE: CHEST AP ONLY Exam: Chest one view INDICATION: Central line placement TECHNIQUE: Frontal view of the chest Comparisons: 09/25/2020 FINDINGS: Left-sided central venous catheter which is malpositioned with tip in the left subclavian vein. The cardiomediastinal silhouette and pulmonary vessels are within normal limits. The lung and pleural spaces are clear. IMPRESSION: Malpositioned left IJ catheter with tip in the left subclavian vein. Electronically signed by: Bimal Alvarez MD (09/25/2020 5:44 PM) [facility] DICTATED and SIGNED BY: BIMAL ALVAREZ MD DATE: 09/25/20 [id number] 0 Course & Med Decision Making: Course & Med Decision Making Pertinent Labs and Imaging studies reviewed. (See chart for details) Patient is a 64-year-old male who was brought here from detention due to altered mental status decreased urinary output, low blood pressure, fever. Patient was found to have severe sepsis, UTI, acute renal failure, dehydration, infected decubitus ulcer on the left buttock area. Patient was given IV fluids, IV antibiotics. Patient was hypotensive, a central venous catheter was placed on the left IJ. The tip of the catheter was located in the left subclavian vein, it was readjusted and the tip was in the SVC area appropriately. Discussed with the hospitalist on-call Dr. Ketan Maynard who agrees admit the patient Critical care time was [60] minutes which includes time at bedside, spent in discussion of patient's care with specialist and/or family members, with interpretation of laboratory and/or radiological studies and is exclusive of procedures. Dragon Disclaimer: Dragon Disclaimer: This electronic medical record was generated, in whole or in part, using a voice recognition dictation system. Departure Departure Impression: Primary Impression: Severe sepsis Additional Impressions: Renal failure Dehydration UTI (urinary tract infection) Decubitus ulcer of left buttock, stage 4 Disposition: ADMITTED INPT THIS HOSP Admitting Physician: [facility] (Dr. Ketan Maynard) Condition: IMPROVED Referrals: LISA CASTAÑEDA MD (PCP) GILLIAN BELLE DO Sep 25, 2020 16:13
[2020-09-25] MEDS ORDERED: ACETAMINOPHEN 650 MG SUPP.RECT. PR ONE (16:15)
[2020-09-25] MEDS ORDERED: BENZTROPINE MESYLATE 2 MG/2 ML VIAL. IV STA (16:15)
--- NOTE | 2020-09-25 16:19 | RAD ---
Exam: Chest one view INDICATION: Sepsis, fever TECHNIQUE: Frontal view of the chest Comparisons: 09/01/2020 FINDINGS: The cardiomediastinal silhouette and pulmonary vessels are within normal limits. The lung and pleural spaces are clear. IMPRESSION: No acute cardiopulmonary process. Electronically signed by: Bimal De Souza MD (09/25/2020 4:16 PM) [facility]IE[facility]
[2020-09-25 16:21] LABS: PROTHROMBIN TIME PATIENT 14.7 SEC (11.7-14.0)
[2020-09-25 16:25] LABS: CALCIUM 8.6 mg/dL (8.5-10.1); CREATININE 5.7 mg/dL (0.7-1.3); GFR 12.2; POTASSIUM 4.3 mmol/L (3.5-5.1)
[2020-09-25 16:30] LABS: ALBUMIN 2.5 g/dL (3.4-5.0); ALBUMIN/GLOBULIN RATIO 0.5 (1.0-1.7); TOTAL BILIRUBIN 0.3 mg/dL (0.2-1.0)
[2020-09-25 16:39] LABS: BILIRUBIN,URINE NEGATIVE (NEG); CLARITY,URINE CLOUDY; COLOR,URINE YELLOW; NITRITE,URINE NEGATIVE (NEG); PROTEIN,URINE >=300 mg/dL (NEG-TRACE)
[2020-09-25 16:45] LABS: WBC,URINE TNTC /HPF (0-4)
[2020-09-25 16:46] LABS: BACTERIA,URINE MANY /HPF (0-FEW)
[2020-09-25 16:47] LABS: YEAST,URINE PRESENT /HPF
[2020-09-25 16:48] LABS: VAL ACID 57 mcg/mL (50-100)
[2020-09-25] MEDS ORDERED: IV NORMAL SALINE 500ML BAG 500 ML IV ONE (17:00)
--- NOTE | 2020-09-25 17:36 | EKG ---
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
--- NOTE | 2020-09-25 17:46 | RAD ---
Exam: Chest one view INDICATION: Central line placement TECHNIQUE: Frontal view of the chest Comparisons: 09/25/2020 FINDINGS: Left-sided central venous catheter which is malpositioned with tip in the left subclavian vein. The cardiomediastinal silhouette and pulmonary vessels are within normal limits. The lung and pleural spaces are clear. IMPRESSION: Malpositioned left IJ catheter with tip in the left subclavian vein. Electronically signed by: Bimal De Souza MD (09/25/2020 5:44 PM) [facility]
[2020-09-25] MEDS: IV NORMAL SALINE 1000ML BAG 1,000 ML IV SCH ×2 (18:00→21:53)
[2020-09-25] MEDS ORDERED: ONDANSETRON PF 4 MG/2 ML VIAL. IV PRN (18:00)
--- NOTE | 2020-09-25 18:23 | PDOC1 ---
History and Physical Date of Admission Date of Admission DATE: 09/25/20 TIME: 18:12 Identification/Chief Complaint Chief Complaint Low blood pressure, fever Source Source: Chart review History of Present Illness History of Present Illness Patient is a 64yo M with PMHx schizophrenia, h/o heavy ETOH abuse, depression with anxiety, HTN, constipation who [facility] for fever, weakness, and low blood pressure. He was recently admitted in July for septic shock secondary to pneumonia and gluteal ulcer. He was [facility] back to [facility] and recently finished his outpatient course of antibiotics. Today he was noted to be hypotensive and more confused than baseline. His penitentiary also noted decreased urine output over the past 24 hours. Per EMS blood pressure was 75/40 mmHg upon arrival. Upon arrival in the ED blood pressure was as low as 87/52 mmHg. Urinalysis showed large leukocyte esterase and white blood cells TNTC. Central line was placed and he received sepsis fluid bolus and broad-spectrum antibiotics. Will need patient to ICU for further medical management. WBC 10.9, BUN 72, creatinine 5.7, albumin 2.5 Past Medical History Cardiovascular: HTN CENTRAL NERVOUS SYSTEM: TIA Psych: Addictions, Schizophrenia Dermatology: Other (Sacral decubitus ulcer) Past Surgical History Past Surgical History: No pertinent history Family History Family History: Family History Unknown Social History Smoke: No ALCOHOL: heavy Drugs: None Current Medications Current Medications Current Medications Piperacillin Sod/ Tazobactam Sod 3.375 gm/Sodium Chloride 50 ml @ 100 mls/hr 1X ONCE IV Last administered on 09/25/20at 16:20; Start 09/25/20 at 16:00; Stop 09/25/20 at 16:29; Status DC Sodium Chloride 1,000 ml @ 1,000 mls/ hr 1X ONCE IV Last administered on 09/25/20at 16:21; Start 09/25/20 at 16:30; Stop 09/25/20 at 17:29; Status DC Sodium Chloride 1,000 ml @ 1,000 mls/ hr 1X ONCE IV Last administered on 09/25/20at 16:20; Start 09/25/20 at 16:00; Stop 09/25/20 at 16:59; Status DC Acetaminophen (Tylenol Supp) 975 mg 1X ONCE RI Last administered on 09/25/20at 16:21; Start 09/25/20 at 16:15; Stop 09/25/20 at 16:16; Status DC Benztropine Mesylate (Cogentin) 2 mg 1X STAT IV Last administered on 09/25/20at 16:23; Start 09/25/20 at 16:15; Stop 09/25/20 at 16:17; Status DC Sodium Chloride 1,000 ml @ 1,000 mls/hr 1X ONCE IV Last administered on 09/25/20at 16:45; Start 09/25/20 at 16:45; Stop 09/25/20 at 17:44; Status DC Sodium Chloride 500 ml @ 500 mls/hr 1X ONCE IV Last administered on 09/25/20at 17:00; Start 09/25/20 at 17:00; Stop 09/25/20 at 17:59; Status DC Ondansetron HCl (Zofran) 4 mg PRN Q8HRS PRN IV NAUSEA/VOMITING; Start 09/25/20 at 18:00; Stop 09/26/20 at 17:59 Sodium Chloride 1,000 ml @ 125 mls/hr Q8H IV ; Start 09/25/20 at 18:00; Stop 09/26/20 at 17:59 Active Scripts Active Cefpodoxime Proxetil 100 Mg/5 Ml Susp.recon 1 Tab PO BID 10 Days Vitamin D3 (Cholecalciferol (Vitamin D3)) 125 Mcg Capsule 5,000 Unit PO DAILY 30 Days Vitamin C (Ascorbic Acid) 500 Mg Tablet 500 Mg PO BID 30 Days Culturelle (Lactobacillus Rhamnosus Gg) 1 Each Cap.sprink 1 Cap PO BID 30 Days Dok (Docusate Sodium) 100 Mg Capsule 100 Mg PO PRN BID PRN 30 Days Orazinc (Zinc Sulfate) 220 Mg Capsule 440 Mg PO DAILY 30 Days Benztropine Mesylate 1 Mg Tablet 1 Mg PO PRN BID PRN 30 Days Quetiapine Fumarate 100 Mg Tablet 400 Mg PO QHS 30 Days Olanzapine Odt (Olanzapine) 5 Mg Tab.rapdis 5 Mg PO PRN BID PRN 30 Days Valproic Acid 250 Mg Capsule 250 Mg PO BID 30 Days Tylenol (Acetaminophen) 325 Mg Tablet 650 Mg PO PRN Q4HRS PRN 30 Days Allergies Allergies: Coded Allergies: No Known Drug Allergies (Unverified , 01/16/19) ROS Review of System Unable to obtain due to clinical condition Physical Exam Physical Exam General: Alert. Moderate distress. Tremulous HEENT: PERRLA, EOMI Lungs: Decreased breath sounds, Normal air movement Heart: Tachycardic. No murmurs Cardiovascular: S1, S2 Abdomen: Normal bowel sounds, Soft, No tenderness Extremities: No clubbing, No cyanosis Skin: Sacral decubitus ulcer with wound VAC in place. No rashes, No significant lesion Neuro: Confused Psych/Mental Status: Lethargic Vitals Vitals Vital Signs Date Time Temp Pulse Resp B/P (MAP) Pulse Ox O2 Delivery O2 Flow Rate FiO2 09/25/20 15:52 98.6 161 16 115/77 (90) 96 Room Air 98.6 Labs Labs Laboratory Tests Test 09/25/20 16:00 09/25/20 16:27 White Blood Count 10.9 x10^3/uL (4.0-11.0) Red Blood Count 3.01 x10^6/uL (4.30-5.70) Hemoglobin 8.6 g/dL (13.0-17.5) Hematocrit 26.4 % (39.0-53.0) Mean Corpuscular Volume 88 fL (79-100) Mean Corpuscular Hemoglobin 29 pg (25-35) Mean Corpuscular Hemoglobin Concent 33 g/dL (31-37) Red Cell Distribution Width 16.6 % (11.5-14.5) Platelet Count 234 x10^3/uL (140-400) Neutrophils (%) (Auto) 69 % (31-73) Lymphocytes (%) (Auto) 16 % (24-48) Monocytes (%) (Auto) 13 % (0-9) Eosinophils (%) (Auto) 1 % (0-3) Basophils (%) (Auto) 1 % (0-3) Neutrophils # (Auto) 7.5 x10^3/uL (1.8-7.7) Lymphocytes # (Auto) 1.7 x10^3/uL (1.0-4.8) Monocytes # (Auto) 1.5 x10^3/uL (0.0-1.1) Eosinophils # (Auto) 0.1 x10^3/uL (0.0-0.7) Basophils # (Auto) 0.1 x10^3/uL (0.0-0.2) Prothrombin Time 14.7 SEC (11.7-14.0) Prothromb Time International Ratio 1.2 (0.8-1.1) Activated Partial Thromboplast Time 32 SEC (24-38) Sodium Level 140 mmol/L (136-145) Potassium Level 4.3 mmol/L (3.5-5.1) Chloride Level 99 mmol/L (98-107) Carbon Dioxide Level 28 mmol/L (21-32) Anion Gap 13 (6-14) Blood Urea Nitrogen 72 mg/dL (8-26) Creatinine 5.7 mg/dL (0.7-1.3) Estimated GFR (Cockcroft-Gault) 12.2 BUN/Creatinine Ratio 13 (6-20) Glucose Level 143 mg/dL (70-99) Lactic Acid Level 1.8 mmol/L (0.4-2.0) Calcium Level 8.6 mg/dL (8.5-10.1) Total Bilirubin 0.3 mg/dL (0.2-1.0) Aspartate Amino Transf (AST/SGOT) 44 U/L (15-37) Alanine Aminotransferase (ALT/SGPT) 27 U/L (16-63) Alkaline Phosphatase 50 U/L (46-116) Troponin I Quantitative < 0.017 ng/mL (0.000-0.055) Total Protein 8.0 g/dL (6.4-8.2) Albumin 2.5 g/dL (3.4-5.0) Albumin/Globulin Ratio 0.5 (1.0-1.7) Lipase 87 U/L (73-393) Valproic Acid (Depakene) Level 57 mcg/mL (50-100) Valproic Acid Last Dose Date 09/24/20 Valproic Acid Last Dose Time 1900 Urine Collection Type U cath Urine Color Yellow Urine Clarity Cloudy Urine pH 6.0 (<5.0-8.0) Urine Specific [place] 1.020 (1.000-1.030) Urine Protein >=300 mg/dL (NEG-TRACE) Urine Glucose (UA) Negative mg/dL (NEG) Urine Ketones (Stick) Negative mg/dL (NEG) Urine Blood Large (NEG) Urine Nitrite Negative (NEG) Urine Bilirubin Negative (NEG) Urine Urobilinogen Dipstick 1.0 mg/dL (0.2 mg/dL) Urine Leukocyte Esterase Large (NEG) Urine RBC 1-2 /HPF (0-2) Urine WBC Tntc /HPF (0-4) Urine Squamous Epithelial Cells None /LPF Urine Bacteria Many /HPF (0-FEW) Urine Mucus Marked /LPF Urine Yeast Present /HPF Laboratory Tests Test 09/25/20 16:00 09/25/20 16:27 White Blood Count 10.9 x10^3/uL (4.0-11.0) Red Blood Count 3.01 x10^6/uL (4.30-5.70) Hemoglobin 8.6 g/dL (13.0-17.5) Hematocrit 26.4 % (39.0-53.0) Mean Corpuscular Volume 88 fL (79-100) Mean Corpuscular Hemoglobin 29 pg (25-35) Mean Corpuscular Hemoglobin Concent 33 g/dL (31-37) Red Cell Distribution Width 16.6 % (11.5-14.5) Platelet Count 234 x10^3/uL (140-400) Neutrophils (%) (Auto) 69 % (31-73) Lymphocytes (%) (Auto) 16 % (24-48) Monocytes (%) (Auto) 13 % (0-9) Eosinophils (%) (Auto) 1 % (0-3) Basophils (%) (Auto) 1 % (0-3) Neutrophils # (Auto) 7.5 x10^3/uL (1.8-7.7) Lymphocytes # (Auto) 1.7 x10^3/uL (1.0-4.8) Monocytes # (Auto) 1.5 x10^3/uL (0.0-1.1) Eosinophils # (Auto) 0.1 x10^3/uL (0.0-0.7) Basophils # (Auto) 0.1 x10^3/uL (0.0-0.2) Prothrombin Time 14.7 SEC (11.7-14.0) Prothromb Time International Ratio 1.2 (0.8-1.1) Activated Partial Thromboplast Time 32 SEC (24-38) Sodium Level 140 mmol/L (136-145) Potassium Level 4.3 mmol/L (3.5-5.1) Chloride Level 99 mmol/L (98-107) Carbon Dioxide Level 28 mmol/L (21-32) Anion Gap 13 (6-14) Blood Urea Nitrogen 72 mg/dL (8-26) Creatinine 5.7 mg/dL (0.7-1.3) Estimated GFR (Cockcroft-Gault) 12.2 BUN/Creatinine Ratio 13 (6-20) Glucose Level 143 mg/dL (70-99) Lactic Acid Level 1.8 mmol/L (0.4-2.0) Calcium Level 8.6 mg/dL (8.5-10.1) Total Bilirubin 0.3 mg/dL (0.2-1.0) Aspartate Amino Transf (AST/SGOT) 44 U/L (15-37) Alanine Aminotransferase (ALT/SGPT) 27 U/L (16-63) Alkaline Phosphatase 50 U/L (46-116) Troponin I Quantitative < 0.017 ng/mL (0.000-0.055) Total Protein 8.0 g/dL (6.4-8.2) Albumin 2.5 g/dL (3.4-5.0) Albumin/Globulin Ratio 0.5 (1.0-1.7) Lipase 87 U/L (73-393) Valproic Acid (Depakene) Level 57 mcg/mL (50-100) Valproic Acid Last Dose Date 09/24/20 Valproic Acid Last Dose Time 1900 Urine Collection Type U cath Urine Color Yellow Urine Clarity Cloudy Urine pH 6.0 (<5.0-8.0) Urine Specific [place] 1.020 (1.000-1.030) Urine Protein >=300 mg/dL (NEG-TRACE) Urine Glucose (UA) Negative mg/dL (NEG) Urine Ketones (Stick) Negative mg/dL (NEG) Urine Blood Large (NEG) Urine Nitrite Negative (NEG) Urine Bilirubin Negative (NEG) Urine Urobilinogen Dipstick 1.0 mg/dL (0.2 mg/dL) Urine Leukocyte Esterase Large (NEG) Urine RBC 1-2 /HPF (0-2) Urine WBC Tntc /HPF (0-4) Urine Squamous Epithelial Cells None /LPF Urine Bacteria Many /HPF (0-FEW) Urine Mucus Marked /LPF Urine Yeast Present /HPF Images Images Exam: Chest one view INDICATION: Sepsis, fever TECHNIQUE: Frontal view of the chest Comparisons: 09/01/2020 FINDINGS: The cardiomediastinal silhouette and pulmonary vessels are within normal limits. The lung and pleural spaces are clear. IMPRESSION: No acute cardiopulmonary process. VTE Prophylaxis Ordered VTE Prophylaxis Devices: No VTE Pharmacological Prophylaxi: Yes Assessment/Plan Assessment/Plan Septic shock Gluteal ulcer DENIS - vasomotor nephropathy from septic shock Acute encephalopathy Lactic acidosis Abnormal CT head Schizophrenia Plan: Sepsis fluid bolus and broad-spectrum antibiotics received in ED Will admit to ICU Consult ID Consult nephrology Acute renal failure from septic shock; BUN 14, Cr 1.3 on 07/30/2020. Will monitor kidney function. Hold blood pressure meds for septic shock Urine cultures and blood cultures pending FEN - regular diet PPX - heparin FULL CODE Dispo - ICU for septic shock likely from above Total CC time 37 minutes including review of chart, imaging studies, bedside evaluation, discussion with nurses and ER attending. Justifications for Admission Other Justification JACQUELIN OCHOA MD Sep 25, 2020 18:23
[2020-09-25] MEDS ORDERED: MORPHINE SULFATE 2 MG/ML VIAL. IV PRN (18:30)
[2020-09-25] MEDS ORDERED: 0.9 % SODIUM CHLORIDE 10 ML DISP.SYRIN. IV PRN (18:30)
[2020-09-25] MEDS ORDERED: ACETAMINOPHEN 325 MG TABLET. PO PRN (18:30)
[2020-09-25] MEDS ORDERED: HYDROmorphone 2 MG/ML VIAL IV PRN (18:30)
[2020-09-25] MEDS ORDERED: ONDANSETRON PF 4 MG/2 ML VIAL. IVP PRN (18:30)
--- NOTE | 2020-09-25 18:30 | RAD ---
AP chest x-ray HISTORY: Central line placement COMPARISON: Chest x-ray September 25, 2020. FINDINGS: There has been readjustment of the left jugular central venous catheter the tip now project s at the right paratracheal mediastinum transversely likely at the region of the SVC may abut the rig ht sidewall based on its positioning. Heart size normal. The patient is mildly rotated to the left so mewhat limiting assessment of the mediastinum however in light of this there appears to be some fulln ess of the left paratracheal mediastinum, which likely corresponds to atypical leftward positioning o f the esophagus relative to the cervical trachea on prior CT imaging, stable. Mild discoid atelectasi s left midlung. No pneumothorax, pulmonary opacities or pleural effusions. Bones are unremarkable. IMPRESSION: Left jugular central venous catheter as described above. No pneumothorax. No acute proces s. Electronically signed by: Monty Lazo MD (09/25/2020 6:27 PM) [facility]
--- NOTE | 2020-09-25 18:34 | EKG ---
[facility] [address] [place] [address] Test Date: 2020-09-25 Test Time: 18:19:28 Pat Name: EDMUND WAGONER Department: Room: Gender: M Foil Wrapper: : 1955 Requested By: LISA CHACON Order Number: [id number] Reading MD: Measurements Intervals [place] Rate: 90 P: 57 [place]: 170 QRS: 44 QRSD: 66 T: 40 QT: 346 QTc: 427 Interpretive Statements SINUS RHYTHM OTHERWISE NORMAL ECG RI6.01 No previous ECG available for comparison
[2020-09-25] MEDS ORDERED: PIP/TAZO PER PHARMACY MC PRN (18:45)
[2020-09-25] MEDS ORDERED: BENZTROPINE MESYLATE 1 MG TABLET. PO PRN (19:30)
[2020-09-25 21:15] VITALS: BP 112/70
[2020-09-25] MEDS: QUEtiapine 100 MG TABLET. PO SCH (21:57)
[2020-09-25] MEDS: VALPROIC ACID 250 MG CAPSULE. PO SCH (21:57)
[2020-09-25] MEDS: HEPARIN for SUB-Q USE 5,000 UNIT/ML VIAL. SQ SCH (21:57)
[2020-09-25 23:00] VITALS: BP 69/39
[2020-09-25] MEDS ORDERED: HYDR12.58 PO (23:14)
[2020-09-25] MEDS ORDERED: VALP250C2 PO (23:14)
[2020-09-25] MEDS ORDERED: LISI20TA18 PO (23:14)
[2020-09-25] MEDS ORDERED: HALO2TAB PO (23:14)
[2020-09-25] MEDS ORDERED: POLY17PO29 PO (23:14)
[2020-09-25] MEDS ORDERED: BENZ0.5T32 PO (23:14)
[2020-09-25] MEDS ORDERED: NOREPINEPHRINE VIAL 8 MG in IV DEXTROSE 5% 250 ML IV PRN (23:30)
--- NOTE | 2020-09-25 23:31 | NUR ---
Patient arrived to room 103 via gurney accompanied by ED RN at 2100. Patient alert and oriented to self and place. When asked other questions patient either does not answer or says "yes", "no", "I don't know", or "once in awhile", but gives no other responses. Patient on 2L, lungs diminished. Patient hooked up to ICU monitors, SR/ST on monitor. Wounds present on coccyx and R ear--wound vac removed from coccyx and both wounds cleaned, pictured, and coccyx wound redressed with wet to dry and foam. Terrazas catheter in place and patent, but penis is very swollen and has pus coming from it. Patent LTLIJ present with good blood return. LAC PIV present and patent. RAC PIV accidentally removed while turning patient--pressure applied. Patient has NS running at 125 cc/hr and took pills well. Patient was incontinent of stool upon arrival. VSS but difficult to get BP R/T patient's constant shaking/tremors. Afebrile at this time. Attempted to orient patient to unit routines, call light, bed controls, tv controls, diet (clears), and activity level (bedrest), but patient is not interactive and has very flat affect. Paperwork from facility does not include whether patient received flu vaccine or not--intervention left as active in case we can find this out at a later time. Around 2300, I went in to adjust cuff and patient to get a BP since patient was now sleeping. SBP 60s-70s. Dr. Maynard notified, orders received to start Levophed gtt.
[2020-09-25] MEDS: PIPERACILLIN/TAZOBACTAM 2.25 GM in IV NORMAL SALINE 50ML 50 ML IV SCH (23:45)
[2020-09-26] VITALS (15 sets, daily range): BP systolic 82–119; BP diastolic 54–70
[2020-09-26 05:37] LABS: CALCIUM 7.6 mg/dL (8.5-10.1); CREATININE 2.6 mg/dL (0.7-1.3); GFR 30.2; POTASSIUM 4.4 mmol/L (3.5-5.1)
[2020-09-26] MEDS: PIPERACILLIN/TAZOBACTAM 2.25 GM in IV NORMAL SALINE 50ML 50 ML IV SCH ×3 (05:46→17:27)
[2020-09-26] MEDS: HEPARIN for SUB-Q USE 5,000 UNIT/ML VIAL. SQ SCH ×3 (05:47→21:22)
[2020-09-26 06:34] LABS: BASO % 0 % (0-3); EOS # 0.2 x10^3/uL (0.0-0.7); EOS % 2 % (0-3); HEMATOCRIT 22.4 % (39.0-53.0); HEMOGLOBIN 7.3 g/dL (13.0-17.5); LYMPH # 1.2 x10^3/uL (1.0-4.8); LYMPH % 16 % (24-48); MEAN CORPUSCULAR HEMOGLOBIN 29 pg (25-35); MEAN CORPUSCULAR HGB CONC 33 g/dL (31-37); MEAN CORPUSCULAR VOLUME 88 fL (79-100); MONO # 0.9 x10^3/uL (0.0-1.1); MONO % 11 % (0-9); NEUT # 5.6 x10^3/uL (1.8-7.7); NEUT % 71 % (31-73); PLATELET COUNT 191 x10^3/uL (140-400); RED BLOOD COUNT 2.55 x10^6/uL (4.30-5.70); RED CELL DISTRIBUTION WIDTH 16.7 % (11.5-14.5); WHITE BLOOD COUNT 7.9 x10^3/uL (4.0-11.0)
[2020-09-26] MEDS: IV NORMAL SALINE 1000ML BAG 1,000 ML IV SCH ×2 (06:58→14:36)
--- NOTE | 2020-09-26 07:28 | PDOC ---
Infectious Disease Note Vital Sign Vital Signs Vital Signs Date Time Temp Pulse Resp B/P (MAP) Pulse Ox O2 Delivery O2 Flow Rate FiO2 09/26/20 07:00 97.2 81 17 109/69 (82) 100 Nasal Cannula 97.2 09/26/20 06:00 2.0 Labs Lab Laboratory Tests Test 09/25/20 16:00 09/25/20 16:27 09/26/20 05:00 09/26/20 06:00 White Blood Count 10.9 x10^3/uL (4.0-11.0) 7.9 x10^3/uL (4.0-11.0) Red Blood Count 3.01 x10^6/uL (4.30-5.70) 2.55 x10^6/uL (4.30-5.70) Hemoglobin 8.6 g/dL (13.0-17.5) 7.3 g/dL (13.0-17.5) Hematocrit 26.4 % (39.0-53.0) 22.4 % (39.0-53.0) Mean Corpuscular Volume 88 fL (79-100) 88 fL (79-100) Mean Corpuscular Hemoglobin 29 pg (25-35) 29 pg (25-35) Mean Corpuscular Hemoglobin Concent 33 g/dL (31-37) 33 g/dL (31-37) Red Cell Distribution Width 16.6 % (11.5-14.5) 16.7 % (11.5-14.5) Platelet Count 234 x10^3/uL (140-400) 191 x10^3/uL (140-400) Neutrophils (%) (Auto) 69 % (31-73) 71 % (31-73) Lymphocytes (%) (Auto) 16 % (24-48) 16 % (24-48) Monocytes (%) (Auto) 13 % (0-9) 11 % (0-9) Eosinophils (%) (Auto) 1 % (0-3) 2 % (0-3) Basophils (%) (Auto) 1 % (0-3) 0 % (0-3) Neutrophils # (Auto) 7.5 x10^3/uL (1.8-7.7) 5.6 x10^3/uL (1.8-7.7) Lymphocytes # (Auto) 1.7 x10^3/uL (1.0-4.8) 1.2 x10^3/uL (1.0-4.8) Monocytes # (Auto) 1.5 x10^3/uL (0.0-1.1) 0.9 x10^3/uL (0.0-1.1) Eosinophils # (Auto) 0.1 x10^3/uL (0.0-0.7) 0.2 x10^3/uL (0.0-0.7) Basophils # (Auto) 0.1 x10^3/uL (0.0-0.2) 0.0 x10^3/uL (0.0-0.2) Prothrombin Time 14.7 SEC (11.7-14.0) Prothromb Time International Ratio 1.2 (0.8-1.1) Activated Partial Thromboplast Time 32 SEC (24-38) Sodium Level 140 mmol/L (136-145) 141 mmol/L (136-145) Potassium Level 4.3 mmol/L (3.5-5.1) 4.4 mmol/L (3.5-5.1) Chloride Level 99 mmol/L (98-107) 108 mmol/L (98-107) Carbon Dioxide Level 28 mmol/L (21-32) 27 mmol/L (21-32) Anion Gap 13 (6-14) 6 (6-14) Blood Urea Nitrogen 72 mg/dL (8-26) 52 mg/dL (8-26) Creatinine 5.7 mg/dL (0.7-1.3) 2.6 mg/dL (0.7-1.3) Estimated GFR (Cockcroft-Gault) 12.2 30.2 BUN/Creatinine Ratio 13 (6-20) Glucose Level 143 mg/dL (70-99) 116 mg/dL (70-99) Lactic Acid Level 1.8 mmol/L (0.4-2.0) Calcium Level 8.6 mg/dL (8.5-10.1) 7.6 mg/dL (8.5-10.1) Total Bilirubin 0.3 mg/dL (0.2-1.0) Aspartate Amino Transf (AST/SGOT) 44 U/L (15-37) Alanine Aminotransferase (ALT/SGPT) 27 U/L (16-63) Alkaline Phosphatase 50 U/L (46-116) Troponin I Quantitative < 0.017 ng/mL (0.000-0.055) Total Protein 8.0 g/dL (6.4-8.2) Albumin 2.5 g/dL (3.4-5.0) Albumin/Globulin Ratio 0.5 (1.0-1.7) Lipase 87 U/L (73-393) Valproic Acid (Depakene) Level 57 mcg/mL (50-100) Valproic Acid Last Dose Date 09/24/20 Valproic Acid Last Dose Time 1900 Urine Collection Type U cath Urine Color Yellow Urine Clarity Cloudy Urine pH 6.0 (<5.0-8.0) Urine Specific [place] 1.020 (1.000-1.030) Urine Protein >=300 mg/dL (NEG-TRACE) Urine Glucose (UA) Negative mg/dL (NEG) Urine Ketones (Stick) Negative mg/dL (NEG) Urine Blood Large (NEG) Urine Nitrite Negative (NEG) Urine Bilirubin Negative (NEG) Urine Urobilinogen Dipstick 1.0 mg/dL (0.2 mg/dL) Urine Leukocyte Esterase Large (NEG) Urine RBC 1-2 /HPF (0-2) Urine WBC Tntc /HPF (0-4) Urine Squamous Epithelial Cells None /LPF Urine Bacteria Many /HPF (0-FEW) Urine Mucus Marked /LPF Urine Yeast Present /HPF Objective Assessment pt seen, consult dictated Plan Plan of Care / TRESSA KAT MD Sep 26, 2020 07:28
--- NOTE | 2020-09-26 07:42 | CONS ---
DATE OF CONSULTATION: 09/26/2020 REQUESTING PHYSICIAN: Dr. Maynard. REASON FOR CONSULTATION: Sepsis. HISTORY OF PRESENT ILLNESS: This is a 64-year-old -[place] gentleman with schizophrenia and wheelchair bound in a detention. The patient presented with altered mental status. The patient was also hypotensive and acute renal failure on top of chronic renal insufficiency. The patient responded to fluids. Apparently, the patient does have Terrazas catheter and a henrique purulent stuff was coming out. The patient recently had Vantin for some reason. The patient has not had any fever here or leukocytosis. The patient's blood pressure is stable. The patient received Zosyn. The patient is arousable, does communicate a little bit, nothing meaningful, not able to provide any information and some yes and no answers he is able to give. No nausea, vomiting, diarrhea, chest pain, shortness of breath or abdominal pain. He was able to complain or was able to be elicited by the RN. PAST MEDICAL HISTORY: Positive for schizophrenia, sacral decubitus, wheelchair bound and long history of alcohol abuse. SOCIAL HISTORY: Negative for alcohol use now. No smoking or IV drug use. The patient is a detention resident in a wheelchair bound. ALLERGIES: No known drug allergies. CURRENT MEDICATIONS: Reviewed. REVIEW OF SYSTEMS: As per HPI, all other systems reviewed are negative. PHYSICAL EXAMINATION: GENERAL: Awake gentleman, who mumbles few words, not in distress. VITAL SIGNS: Stable, afebrile. HEENT: NAD. NECK: Supple, no JVP, no lymphadenopathy. LUNGS: Clear. HEART: S1, S2 regular. ABDOMEN: Soft, nontender, no organomegaly. EXTREMITIES: No edema or cyanosis. SKIN: Unremarkable except he has a sacrococcygeal decubitus, which is small deep, but clean. Rest of skin exam is unremarkable. NEUROLOGIC: The patient is awake, does mumble few words, does not follow command. Spontaneous extremity movements are present. LABORATORY DATA: White count is 7.9, hemoglobin 7.3 and , platelets are normal. BUN and creatinine is 52 and 2.6, which is improved from 72 and 5.7. Lactic acid 1.8. His urinalysis showed too numerous to count wbc's. Urine culture is pending. Blood culture is pending. Chest x-ray, no acute change. IMPRESSION: 1. Complicated urinary tract infection. 2. Hypotension. 3. Dehydration. 4. Encephalopathy. 5. Acute kidney injury on top of chronic renal insufficiency. 6. Schizophrenia. 7. Sacral decubitus. RECOMMENDATIONS: Continue Zosyn. Continue supportive care. We will check the cultures and continue to adjust. Thank you very much, Dr. Maynard, for giving me the opportunity to participate in this patient's care. TRESSA KAT MD DR: LLOYD/rayray JOB#: [id number] / [id number]
[2020-09-26] MEDS: VALPROIC ACID 250 MG CAPSULE. PO SCH ×2 (08:07→21:18)
--- NOTE | 2020-09-26 10:30 | PDOC ---
Renal-Progress Notes Subjective Notes Notes AWAKE BUT CONFUSED History of Present Illness Hx of present illness IMPROVING Vitals Vitals Vital Signs Date Time Temp Pulse Resp B/P (MAP) Pulse Ox O2 Delivery O2 Flow Rate FiO2 09/26/20 09:56 78 17 93/60 (71) 100 Nasal Cannula 1.0 09/26/20 07:00 97.2 97.2 Weight Weight [ ] I.O. Intake and Output Intake and Output 09/26/20 07:00 Intake Total 3826 ml Output Total 1525 ml Balance 2301 ml Intake Oral 400 ml IV Total 3426 ml Output Urine Total 1525 ml # Bowel Movements 2 Labs Labs Laboratory Tests Test 09/25/20 16:00 09/25/20 16:27 09/26/20 05:00 09/26/20 06:00 White Blood Count 10.9 x10^3/uL (4.0-11.0) 7.9 x10^3/uL (4.0-11.0) Red Blood Count 3.01 x10^6/uL (4.30-5.70) 2.55 x10^6/uL (4.30-5.70) Hemoglobin 8.6 g/dL (13.0-17.5) 7.3 g/dL (13.0-17.5) Hematocrit 26.4 % (39.0-53.0) 22.4 % (39.0-53.0) Mean Corpuscular Volume 88 fL (79-100) 88 fL (79-100) Mean Corpuscular Hemoglobin 29 pg (25-35) 29 pg (25-35) Mean Corpuscular Hemoglobin Concent 33 g/dL (31-37) 33 g/dL (31-37) Red Cell Distribution Width 16.6 % (11.5-14.5) 16.7 % (11.5-14.5) Platelet Count 234 x10^3/uL (140-400) 191 x10^3/uL (140-400) Neutrophils (%) (Auto) 69 % (31-73) 71 % (31-73) Lymphocytes (%) (Auto) 16 % (24-48) 16 % (24-48) Monocytes (%) (Auto) 13 % (0-9) 11 % (0-9) Eosinophils (%) (Auto) 1 % (0-3) 2 % (0-3) Basophils (%) (Auto) 1 % (0-3) 0 % (0-3) Neutrophils # (Auto) 7.5 x10^3/uL (1.8-7.7) 5.6 x10^3/uL (1.8-7.7) Lymphocytes # (Auto) 1.7 x10^3/uL (1.0-4.8) 1.2 x10^3/uL (1.0-4.8) Monocytes # (Auto) 1.5 x10^3/uL (0.0-1.1) 0.9 x10^3/uL (0.0-1.1) Eosinophils # (Auto) 0.1 x10^3/uL (0.0-0.7) 0.2 x10^3/uL (0.0-0.7) Basophils # (Auto) 0.1 x10^3/uL (0.0-0.2) 0.0 x10^3/uL (0.0-0.2) Prothrombin Time 14.7 SEC (11.7-14.0) Prothromb Time International Ratio 1.2 (0.8-1.1) Activated Partial Thromboplast Time 32 SEC (24-38) Sodium Level 140 mmol/L (136-145) 141 mmol/L (136-145) Potassium Level 4.3 mmol/L (3.5-5.1) 4.4 mmol/L (3.5-5.1) Chloride Level 99 mmol/L (98-107) 108 mmol/L (98-107) Carbon Dioxide Level 28 mmol/L (21-32) 27 mmol/L (21-32) Anion Gap 13 (6-14) 6 (6-14) Blood Urea Nitrogen 72 mg/dL (8-26) 52 mg/dL (8-26) Creatinine 5.7 mg/dL (0.7-1.3) 2.6 mg/dL (0.7-1.3) Estimated GFR (Cockcroft-Gault) 12.2 30.2 BUN/Creatinine Ratio 13 (6-20) Glucose Level 143 mg/dL (70-99) 116 mg/dL (70-99) Lactic Acid Level 1.8 mmol/L (0.4-2.0) Calcium Level 8.6 mg/dL (8.5-10.1) 7.6 mg/dL (8.5-10.1) Total Bilirubin 0.3 mg/dL (0.2-1.0) Aspartate Amino Transf (AST/SGOT) 44 U/L (15-37) Alanine Aminotransferase (ALT/SGPT) 27 U/L (16-63) Alkaline Phosphatase 50 U/L (46-116) Troponin I Quantitative < 0.017 ng/mL (0.000-0.055) Total Protein 8.0 g/dL (6.4-8.2) Albumin 2.5 g/dL (3.4-5.0) Albumin/Globulin Ratio 0.5 (1.0-1.7) Lipase 87 U/L (73-393) Valproic Acid (Depakene) Level 57 mcg/mL (50-100) Valproic Acid Last Dose Date 09/24/20 Valproic Acid Last Dose Time 1900 Urine Collection Type U cath Urine Color Yellow Urine Clarity Cloudy Urine pH 6.0 (<5.0-8.0) Urine Specific [place] 1.020 (1.000-1.030) Urine Protein >=300 mg/dL (NEG-TRACE) Urine Glucose (UA) Negative mg/dL (NEG) Urine Ketones (Stick) Negative mg/dL (NEG) Urine Blood Large (NEG) Urine Nitrite Negative (NEG) Urine Bilirubin Negative (NEG) Urine Urobilinogen Dipstick 1.0 mg/dL (0.2 mg/dL) Urine Leukocyte Esterase Large (NEG) Urine RBC 1-2 /HPF (0-2) Urine WBC Tntc /HPF (0-4) Urine Squamous Epithelial Cells None /LPF Urine Bacteria Many /HPF (0-FEW) Urine Mucus Marked /LPF Urine Yeast Present /HPF Review of Systems Constitutional: yes: other (UNABLE TO OBTAIN) Physical Exam General Appearance: no apparent distress Skin: warm Respiratory: decreased breath sounds Heart: S1S2 Abdomen: soft, bowel sounds present Genitourinary: bladder flat Neurology: alert, confused Assessment Assessment IMP DENIS-IMPROVING CR 5.7 TO 2.7-NO CKD HX URINARY TRACT INFECTION DEHYDRATION HYPOTENSION SACRAL DECUBITI SCHIZOPHRENIA PLAN CONT HYDRATION ANTIBIOTICS LABS IN AM KELSIE CORRAL MD Sep 26, 2020 10:30
--- NOTE | 2020-09-26 11:42 | NUR ---
Have reviewed and agree with documentation completed by internet marketing executive
--- NOTE | 2020-09-26 12:10 | PDOC ---
[employer] PROGRESS NOTE Date of Service DOS: DATE: 09/26/20 TIME: 12:09 Chief Complaint Chief Complaint Septic shock Gluteal ulcer DENIS - vasomotor nephropathy from septic shock Acute encephalopathy Lactic acidosis Abnormal CT head Schizophrenia History of Present Illness History of Present Illness 09/27/2019 Patient seen and examined in the ICU Discussed with RN Discussed with case management Chart reviewed Vitals/I&O Vitals/I&O: Vital Signs Date Time Temp Pulse Resp B/P (MAP) Pulse Ox O2 Delivery O2 Flow Rate FiO2 09/26/20 10:52 97.2 18 18 103/68 (80) 100 Room Air 97.2 09/26/20 09:56 1.0 I & O 09/25/20 09/25/20 09/26/20 15:00 23:00 07:00 Intake Total 2850 ml 976 ml Output Total 785 ml 740 ml Balance 2065 ml 236 ml Physical Exam General: Alert, Cooperative Heart: Regular rate Lungs: Clear Abdomen: Normal bowel sounds, Soft Extremities: No clubbing, No cyanosis Skin: No rashes, No breakdown Labs Labs: Laboratory Tests Test 09/25/20 16:00 09/25/20 16:27 09/26/20 05:00 09/26/20 06:00 White Blood Count 10.9 x10^3/uL (4.0-11.0) 7.9 x10^3/uL (4.0-11.0) Red Blood Count 3.01 x10^6/uL (4.30-5.70) 2.55 x10^6/uL (4.30-5.70) Hemoglobin 8.6 g/dL (13.0-17.5) 7.3 g/dL (13.0-17.5) Hematocrit 26.4 % (39.0-53.0) 22.4 % (39.0-53.0) Mean Corpuscular Volume 88 fL (79-100) 88 fL (79-100) Mean Corpuscular Hemoglobin 29 pg (25-35) 29 pg (25-35) Mean Corpuscular Hemoglobin Concent 33 g/dL (31-37) 33 g/dL (31-37) Red Cell Distribution Width 16.6 % (11.5-14.5) 16.7 % (11.5-14.5) Platelet Count 234 x10^3/uL (140-400) 191 x10^3/uL (140-400) Neutrophils (%) (Auto) 69 % (31-73) 71 % (31-73) Lymphocytes (%) (Auto) 16 % (24-48) 16 % (24-48) Monocytes (%) (Auto) 13 % (0-9) 11 % (0-9) Eosinophils (%) (Auto) 1 % (0-3) 2 % (0-3) Basophils (%) (Auto) 1 % (0-3) 0 % (0-3) Neutrophils # (Auto) 7.5 x10^3/uL (1.8-7.7) 5.6 x10^3/uL (1.8-7.7) Lymphocytes # (Auto) 1.7 x10^3/uL (1.0-4.8) 1.2 x10^3/uL (1.0-4.8) Monocytes # (Auto) 1.5 x10^3/uL (0.0-1.1) 0.9 x10^3/uL (0.0-1.1) Eosinophils # (Auto) 0.1 x10^3/uL (0.0-0.7) 0.2 x10^3/uL (0.0-0.7) Basophils # (Auto) 0.1 x10^3/uL (0.0-0.2) 0.0 x10^3/uL (0.0-0.2) Prothrombin Time 14.7 SEC (11.7-14.0) Prothromb Time International Ratio 1.2 (0.8-1.1) Activated Partial Thromboplast Time 32 SEC (24-38) Sodium Level 140 mmol/L (136-145) 141 mmol/L (136-145) Potassium Level 4.3 mmol/L (3.5-5.1) 4.4 mmol/L (3.5-5.1) Chloride Level 99 mmol/L (98-107) 108 mmol/L (98-107) Carbon Dioxide Level 28 mmol/L (21-32) 27 mmol/L (21-32) Anion Gap 13 (6-14) 6 (6-14) Blood Urea Nitrogen 72 mg/dL (8-26) 52 mg/dL (8-26) Creatinine 5.7 mg/dL (0.7-1.3) 2.6 mg/dL (0.7-1.3) Estimated GFR (Cockcroft-Gault) 12.2 30.2 BUN/Creatinine Ratio 13 (6-20) Glucose Level 143 mg/dL (70-99) 116 mg/dL (70-99) Lactic Acid Level 1.8 mmol/L (0.4-2.0) Calcium Level 8.6 mg/dL (8.5-10.1) 7.6 mg/dL (8.5-10.1) Total Bilirubin 0.3 mg/dL (0.2-1.0) Aspartate Amino Transf (AST/SGOT) 44 U/L (15-37) Alanine Aminotransferase (ALT/SGPT) 27 U/L (16-63) Alkaline Phosphatase 50 U/L (46-116) Troponin I Quantitative < 0.017 ng/mL (0.000-0.055) Total Protein 8.0 g/dL (6.4-8.2) Albumin 2.5 g/dL (3.4-5.0) Albumin/Globulin Ratio 0.5 (1.0-1.7) Lipase 87 U/L (73-393) Valproic Acid (Depakene) Level 57 mcg/mL (50-100) Valproic Acid Last Dose Date 09/24/20 Valproic Acid Last Dose Time 1900 Urine Collection Type U cath Urine Color Yellow Urine Clarity Cloudy Urine pH 6.0 (<5.0-8.0) Urine Specific [place] 1.020 (1.000-1.030) Urine Protein >=300 mg/dL (NEG-TRACE) Urine Glucose (UA) Negative mg/dL (NEG) Urine Ketones (Stick) Negative mg/dL (NEG) Urine Blood Large (NEG) Urine Nitrite Negative (NEG) Urine Bilirubin Negative (NEG) Urine Urobilinogen Dipstick 1.0 mg/dL (0.2 mg/dL) Urine Leukocyte Esterase Large (NEG) Urine RBC 1-2 /HPF (0-2) Urine WBC Tntc /HPF (0-4) Urine Squamous Epithelial Cells None /LPF Urine Bacteria Many /HPF (0-FEW) Urine Mucus Marked /LPF Urine Yeast Present /HPF Assessment and Plan Assessmemt and Plan Problems Medical Problems: (1) Decubitus ulcer of left buttock, stage 4 Status: Acute (2) Dehydration Status: Acute (3) Renal failure Status: Acute (4) Severe sepsis Status: Acute (5) UTI (urinary tract infection) Status: Acute Septic shock Gluteal ulcer DENIS - vasomotor nephropathy from septic shock Acute encephalopathy Lactic acidosis Abnormal CT head Schizophrenia Plan: ID and nephro following Transfer out of ICU Trend labs IV antibiotics Home meds DVT prophylaxis Acute renal failure from septic shock; BUN 14, Cr 1.3 on 07/30/2020. Will monitor kidney function. Hold blood pressure meds for septic shock Urine cultures and blood cultures pending FEN - regular diet PPX - heparin FULL CODE Dispo - ICU for septic shock likely from above Comment Review of Relevant I have reviewed the following items any (where applicable) has been applied. Medications: Current Medications Medications (Trade) Dose Ordered Sig/Jeffrey Route PRN Reason Start Time Stop Time Status Last Admin Dose Admin Piperacillin Sod/ Tazobactam Sod 3.375 gm/Sodium Chloride 50 ml @ 100 mls/hr 1X ONCE IV 09/25/20 16:00 09/25/20 16:29 DC 09/25/20 16:20 Sodium Chloride 1,000 ml @ 1,000 mls/ hr 1X ONCE IV 09/25/20 16:30 09/25/20 17:29 DC 09/25/20 16:21 Sodium Chloride 1,000 ml @ 1,000 mls/ hr 1X ONCE IV 09/25/20 16:00 09/25/20 16:59 DC 09/25/20 16:20 Acetaminophen (Tylenol Supp) 975 mg 1X ONCE NM 09/25/20 16:15 09/25/20 16:16 DC 09/25/20 16:21 Benztropine Mesylate (Cogentin) 2 mg 1X STAT IV 09/25/20 16:15 09/25/20 16:17 DC 09/25/20 16:23 Sodium Chloride 1,000 ml @ 1,000 mls/hr 1X ONCE IV 09/25/20 16:45 09/25/20 17:44 DC 09/25/20 16:45 Sodium Chloride 500 ml @ 500 mls/hr 1X ONCE IV 09/25/20 17:00 09/25/20 17:59 DC 09/25/20 17:00 Sodium Chloride 1,000 ml @ 125 mls/hr Q8H IV 09/25/20 18:00 09/26/20 17:59 09/26/20 06:58 Heparin Sodium (Porcine) (Heparin Sodium) 5,000 unit Q8HRS SQ 09/25/20 19:00 09/26/20 05:47 Piperacillin Sod/ Tazobactam Sod 2.25 gm/Sodium Chloride 50 ml @ 100 mls/hr Q6HRS IV 09/26/20 00:00 09/26/20 11:02 Quetiapine Fumarate (SEROquel) 400 mg QHS PO 09/25/20 21:00 09/25/20 21:57 Valproic Acid (Depakene) 250 mg BID PO 09/25/20 21:00 09/26/20 08:07 Justifications for Admission Other Justification Septic shock, urosepsis, acute renal failure CATHY HERNANDEZ III DO Sep 26, 2020 12:10
--- NOTE | 2020-09-26 16:31 | NUR ---
Wound Care Wound care consult for coccyx wound, right ear wound and distal penis wound. Pt has stage IV to coccyx, unstageable to right ear and stage II to penis wound. A&D and foam applied to ear. Glans penis is swollen with wound in urethra and circumferentially around glans, A&D applied to entire area. Wound vac with black foam at 125 mmHg applied to coccyx, Change MWF. Pt also had DFU to left lateral heel, dry scab, painted with betadine. No other wounds noted. Pt unable to retain teaching due to mental status. Discussed POC with JAMIE Watson.
[2020-09-26] MEDS ORDERED: POLYETHYLENE GLYCOL 3350 17 GM PACKET. PO PRN (19:15)
[2020-09-26] MEDS ORDERED: ACETAMINOPHEN 325 MG TABLET. PO PRN (19:15)
[2020-09-26] MEDS: BENZTROPINE MESYLATE 1 MG TABLET. PO SCH (21:18)
[2020-09-26] MEDS: QUEtiapine 100 MG TABLET. PO SCH (21:19)
[2020-09-26] MEDS: HALOPERIDOL 2 MG TABLET. PO SCH (21:19)
[2020-09-27] MEDS: PIPERACILLIN/TAZOBACTAM 2.25 GM in IV NORMAL SALINE 50ML 50 ML IV SCH ×4 (01:11→17:34)
[2020-09-27 02:50] VITALS: BP 110/74
[2020-09-27] MEDS: IV NORMAL SALINE 1000ML BAG 1,000 ML IV SCH ×3 (05:52→20:43)
[2020-09-27] MEDS: HEPARIN for SUB-Q USE 5,000 UNIT/ML VIAL. SQ SCH ×3 (05:52→20:45)
[2020-09-27 06:57] LABS: CALCIUM 7.9 mg/dL (8.5-10.1); CREATININE 1.3 mg/dL (0.7-1.3); GFR 67.2; POTASSIUM 4.5 mmol/L (3.5-5.1)
[2020-09-27 07:00] VITALS: BP 129/76
[2020-09-27] MEDS: LISINOPRIL 20 MG TABLET PO SCH (09:46)
[2020-09-27] MEDS: HALOPERIDOL 2 MG TABLET. PO SCH ×2 (09:46→20:43)
[2020-09-27] MEDS: hydroCHLOROthiazide 12.5 MG CAPSULE PO SCH (09:46)
[2020-09-27] MEDS: BENZTROPINE MESYLATE 1 MG TABLET. PO SCH ×2 (09:47→20:43)
[2020-09-27] MEDS: VALPROIC ACID 250 MG CAPSULE. PO SCH ×2 (09:53→20:44)
--- NOTE | 2020-09-27 10:18 | PDOC ---
Infectious Disease Note Subjective Subjective pt is feeling better ROS ROS no n/v/d/sob Vital Sign Vital Signs Vital Signs Date Time Temp Pulse Resp B/P (MAP) Pulse Ox O2 Delivery O2 Flow Rate FiO2 09/27/20 09:46 82 129/76 09/27/20 07:00 97.7 14 99 Room Air 97.7 09/26/20 09:56 1.0 Physical Exam PHYSICAL EXAM GENERAL: Awake gentleman, who mumbles few words, not in distress. VITAL SIGNS: Stable, afebrile. HEENT: NAD. NECK: Supple, no JVP, no lymphadenopathy. LUNGS: Clear. HEART: S1, S2 regular. ABDOMEN: Soft, nontender, no organomegaly. EXTREMITIES: No edema or cyanosis. SKIN: Unremarkable except he has a sacrococcygeal decubitus, which is small deep, but clean. Rest of skin exam is unremarkable. NEUROLOGIC: The patient is awake, does mumble few words, does not follow command. Spontaneous extremity movements are present. Labs Lab Laboratory Tests Test 09/27/20 05:20 Sodium Level 145 mmol/L (136-145) Potassium Level 4.5 mmol/L (3.5-5.1) Chloride Level 113 mmol/L (98-107) Carbon Dioxide Level 28 mmol/L (21-32) Anion Gap 4 (6-14) Blood Urea Nitrogen 37 mg/dL (8-26) Creatinine 1.3 mg/dL (0.7-1.3) Estimated GFR (Cockcroft-Gault) 67.2 Glucose Level 73 mg/dL (70-99) Calcium Level 7.9 mg/dL (8.5-10.1) Micro Microbiology 09/25/20 Blood Culture - Preliminary, Resulted NO GROWTH AFTER 1 DAY Objective Assessment IMPRESSION: 1. Complicated urinary tract infection. 2. Hypotension. 3. Dehydration. 4. Encephalopathy. 5. Acute kidney injury on top of chronic renal insufficiency. 6. Schizophrenia. 7. Sacral decubitus. Plan Plan of Care cont antibiotics supportive care TRESSA KAT MD Sep 27, 2020 10:18
[2020-09-27 11:00] VITALS: BP 134/85
--- NOTE | 2020-09-27 11:14 | PDOC ---
Renal-Progress Notes Subjective Notes Notes NO NEW COMPLAINTS History of Present Illness Hx of present illness STABLE Vitals Vitals Vital Signs Date Time Temp Pulse Resp B/P (MAP) Pulse Ox O2 Delivery O2 Flow Rate FiO2 09/27/20 09:46 82 129/76 09/27/20 07:00 97.7 14 99 Room Air 97.7 09/26/20 09:56 1.0 Weight Weight [ ] I.O. Intake and Output Intake and Output 09/27/20 07:00 Intake Total 560 ml Output Total 940 ml Balance -380 ml Intake Oral 560 ml Output Urine Total 940 ml Labs Labs Laboratory Tests Test 09/27/20 05:20 Sodium Level 145 mmol/L (136-145) Potassium Level 4.5 mmol/L (3.5-5.1) Chloride Level 113 mmol/L (98-107) Carbon Dioxide Level 28 mmol/L (21-32) Anion Gap 4 (6-14) Blood Urea Nitrogen 37 mg/dL (8-26) Creatinine 1.3 mg/dL (0.7-1.3) Estimated GFR (Cockcroft-Gault) 67.2 Glucose Level 73 mg/dL (70-99) Calcium Level 7.9 mg/dL (8.5-10.1) Micro Micro Microbiology 09/25/20 Blood Culture - Preliminary, Resulted NO GROWTH AFTER 1 DAY Review of Systems Constitutional: yes: other (UNABLE TO OBTAIN) Physical Exam General Appearance: no apparent distress Skin: warm Respiratory: decreased breath sounds Heart: S1S2 Abdomen: soft, bowel sounds present Genitourinary: bladder flat Neurology: alert, confused Assessment Assessment IMP DENIS-IMPROVING CR 5.7 TO 1.3-NO CKD HX URINARY TRACT INFECTION DEHYDRATION HYPOTENSION SACRAL DECUBITI SCHIZOPHRENIA PLAN DECREASE IVF ENC PO ANTIBIOTICS WILL FOLLOW NEEDED KELSIE CORRAL MD Sep 27, 2020 11:14
[2020-09-27] MEDS: MULTIVITAMIN with MINERAL TABLET. PO SCH (12:33)
[2020-09-27 15:00] VITALS: BP 131/71
--- NOTE | 2020-09-27 18:27 | PDOC ---
[facility] PROGRESS NOTE Date of Service DOS: DATE: 09/27/20 TIME: 18:21 Chief Complaint Chief Complaint Septic shock Gluteal ulcer DENIS - vasomotor nephropathy from septic shock Acute encephalopathy Lactic acidosis Abnormal CT head Schizophrenia History of Present Illness History of Present Illness 09/27/2020 No acute events overnight. No concerns from nursing. Continue wound care management. Patient's chart, labs, images were reviewed and discussed with RN 09/27/2019 Patient seen and examined in the ICU Discussed with RN Discussed with case management Chart reviewed Vitals/I&O Vitals/I&O: Vital Signs Date Time Temp Pulse Resp B/P (MAP) Pulse Ox O2 Delivery O2 Flow Rate FiO2 09/27/20 15:00 98.3 90 18 131/71 (91) 100 Room Air 98.3 09/26/20 09:56 1.0 I & O 09/26/20 09/26/20 09/27/20 15:00 23:00 07:00 Intake Total 100 ml 100 ml 360 ml Output Total 640 ml 300 ml Balance -540 ml -200 ml 360 ml Physical Exam Physical Exam: GENERAL: Awake gentleman, who mumbles few words, not in distress. VITAL SIGNS: Stable, afebrile. HEENT: NAD. NECK: Supple, no JVP, no lymphadenopathy. LUNGS: Clear. HEART: S1, S2 regular. ABDOMEN: Soft, nontender, no organomegaly. EXTREMITIES: No edema or cyanosis. SKIN: Unremarkable except he has a sacrococcygeal decubitus, which is small deep, but clean. Rest of skin exam is unremarkable. NEUROLOGIC: The patient is awake, does mumble few words, does not follow command. Spontaneous extremity movements are present. General: Alert, Cooperative Heart: Regular rate Lungs: Clear Abdomen: Normal bowel sounds, Soft Extremities: No clubbing, No cyanosis Skin: No rashes, No breakdown Labs Labs: Laboratory Tests Test 09/27/20 05:20 Sodium Level 145 mmol/L (136-145) Potassium Level 4.5 mmol/L (3.5-5.1) Chloride Level 113 mmol/L (98-107) Carbon Dioxide Level 28 mmol/L (21-32) Anion Gap 4 (6-14) Blood Urea Nitrogen 37 mg/dL (8-26) Creatinine 1.3 mg/dL (0.7-1.3) Estimated GFR (Cockcroft-Gault) 67.2 Glucose Level 73 mg/dL (70-99) Calcium Level 7.9 mg/dL (8.5-10.1) Assessment and Plan Assessmemt and Plan Problems Medical Problems: (1) Decubitus ulcer of left buttock, stage 4 Status: Acute (2) Dehydration Status: Acute (3) Renal failure Status: Acute (4) Severe sepsis Status: Acute (5) UTI (urinary tract infection) Status: Acute Comment Review of Relevant I have reviewed the following items any (where applicable) has been applied. Medications: Current Medications Medications (Trade) Dose Ordered Sig/Jeffrey Route PRN Reason Start Time Stop Time Status Last Admin Dose Admin Haloperidol (Haldol) 4 mg BID PO 09/26/20 21:00 09/27/20 09:46 Lisinopril (Prinivil) 20 mg DAILY PO 09/27/20 09:00 09/27/20 09:46 Valproic Acid (Depakene) 500 mg BID PO 09/26/20 21:00 09/27/20 09:53 Benztropine Mesylate (Cogentin) 0.5 mg BID PO 09/26/20 21:00 09/27/20 09:47 Hydrochlorothiazide (Microzide) 12.5 mg DAILY PO 09/27/20 09:00 09/27/20 09:46 Multivitamins (Thera M Plus) 1 tab DAILY PO 09/27/20 11:00 09/27/20 12:33 Justifications for Admission Other Justification Septic shock, urosepsis, acute renal failure JARRED MONCADA MD Sep 27, 2020 18:26
[2020-09-27 19:50] VITALS: BP 123/70
[2020-09-27] MEDS: QUEtiapine 100 MG TABLET. PO SCH (20:43)
[2020-09-27] MEDS: LACTOBACILLUS RHAMNOSUS GG 1 CAPSULE. PO SCH (20:45)
[2020-09-27 23:06] VITALS: BP 124/71
[2020-09-28 03:39] VITALS: BP 130/79
[2020-09-28] MEDS: PIPERACILLIN/TAZOBACTAM 2.25 GM in IV NORMAL SALINE 50ML 50 ML IV SCH ×2 (04:58)
[2020-09-28] MEDS: IV NORMAL SALINE 1000ML BAG 1,000 ML IV SCH ×2 (04:58→15:10)
[2020-09-28] MEDS: HEPARIN for SUB-Q USE 5,000 UNIT/ML VIAL. SQ SCH ×2 (04:59→15:20)
[2020-09-28 07:00] VITALS: BP 125/82
[2020-09-28] MEDS: BENZTROPINE MESYLATE 1 MG TABLET. PO SCH (08:57)
[2020-09-28] MEDS: LACTOBACILLUS RHAMNOSUS GG 1 CAPSULE. PO SCH (08:58)
[2020-09-28] MEDS: MULTIVITAMIN with MINERAL TABLET. PO SCH (08:58)
[2020-09-28] MEDS: LISINOPRIL 20 MG TABLET PO SCH (08:58)
[2020-09-28] MEDS: HALOPERIDOL 2 MG TABLET. PO SCH (08:58)
[2020-09-28] MEDS: hydroCHLOROthiazide 12.5 MG CAPSULE PO SCH (08:58)
[2020-09-28] MEDS: VALPROIC ACID 250 MG CAPSULE. PO SCH (08:58)
--- NOTE | 2020-09-28 10:57 | PDOC ---
Renal-Progress Notes Subjective Notes Notes NO NEW COMPLAINTS History of Present Illness Hx of present illness STABLE Vitals Vitals Vital Signs Date Time Temp Pulse Resp B/P (MAP) Pulse Ox O2 Delivery O2 Flow Rate FiO2 09/28/20 08:58 103 125/82 09/28/20 07:00 24 99 Room Air 09/28/20 03:39 98.2 98.2 Weight Weight [ ] I.O. Intake and Output Intake and Output 09/28/20 07:00 Intake Total 892 ml Output Total 2200 ml Balance -1308 ml Intake Oral 892 ml Output Urine Total 2200 ml Micro Micro Microbiology 09/25/20 Urine Culture - Final, Complete 09/25/20 Blood Culture - Preliminary, Resulted NO GROWTH AFTER 2 DAYS Review of Systems Constitutional: yes: other (UNABLE TO OBTAIN) Physical Exam General Appearance: no apparent distress Skin: warm Respiratory: decreased breath sounds Heart: S1S2 Abdomen: soft, bowel sounds present Genitourinary: bladder flat Neurology: alert, confused Assessment Assessment IMP DENIS-IMPROVING CR 5.7 TO 1.3-NO CKD HX URINARY TRACT INFECTION DEHYDRATION HYPOTENSION SACRAL DECUBITI SCHIZOPHRENIA PLAN DECREASE IVF ENC PO ANTIBIOTICS WILL FOLLOW NEEDED KELSIE CORRAL MD Sep 28, 2020 10:57
[2020-09-28 11:00] VITALS: BP 140/62
--- NOTE | 2020-09-28 11:09 | SNU/HH DC ---
DISCHARGE ORDERS DISCHARGE INFORMATION: DISCHARGE DATE: Sep 28, 2020 FINAL DIAGNOSIS Problems Medical Problems: (1) Decubitus ulcer of left buttock, stage 4 Status: Acute (2) Dehydration Status: Acute (3) Renal failure Status: Acute (4) Severe sepsis Status: Acute (5) UTI (urinary tract infection) Status: Acute CONDITION ON DISCHARGE: Guarded CODE STATUS: Code Status: Full CARE HOME: SNF STAY <30 DAYS: Yes POST DISCHARGE ORDERS: ACTIVITY ORDERS: Activity as tolerated, Bedrest today DIET AFTER DISCHARGE: Cardiac WOUND/INCISION CARE: Change dressing CHECKS AFTER DISCHARGE: CHECKS AFTER DISCHARGE: Check blood press - daily FOLLOW-UP: PHYSICIAN FOLLOW-UP: PCP within 2 weeks of discharge ADDITIONAL FOLLOW-UP: Wound care clinic as scheduled LAB ORDERS FOR FOLLOW-UP: CBC, CMP within 2 weeks of discharge TREATMENT/EQUIPMENT ORDERS: ADAPTIVE EQUIPMENT NEEDED: None Physical Therapy For: Evalulation/Treatment Occupational Therapy For: Evaluation/Treatment Speech Language Pathology For: Evaluation/Treatment DISCHARGE MEDICATIONS: Home Meds Active Scripts Quetiapine Fumarate (QUETIAPINE FUMARATE) 100 Mg Tablet, 400 MG PO QHS for MOOD for 30 Days, #120 TAB Prov:ITZEL MORALES MD 08/03/20 Acetaminophen (TYLENOL) 325 Mg Tablet, 650 MG PO PRN Q4HRS PRN for TEMP OVER 100.4F OR MILD PAIN for 30 Days, #60 TAB Prov:ITZEL MORALES MD 08/03/20 Reported Medications Lisinopril (LISINOPRIL) 20 Mg Tablet, 1 TAB PO DAILY for HTN, #30 TAB 5 Refills 09/25/20 Hydrochlorothiazide (HYDROCHLOROTHIAZIDE TABLET) 12.5 Mg Tablet, 12.5 MG PO DAILY for DIURETIC, TAB 0 Refills 09/25/20 Haloperidol (HALOPERIDOL) 2 Mg Tablet, 2 TAB PO BID for Schizophrenia, #60 TAB 1 Refill 09/25/20 Benztropine Mesylate (BENZTROPINE MESYLATE) 0.5 Mg Tablet, 1 TAB PO BID for Tremors R/T schizophrenia, #60 TAB 09/25/20 Valproic Acid (VALPROIC ACID) 250 Mg Capsule, 500 MG PO BID for Schizophrenia, CAP 09/25/20 Polyethylene Glycol 3350 (MIRALAX) 17 Gm Powd.pack, 1 PACKET PO PRN DAILY PRN for CONSTIPATION for 2 Days, PACKET 0 Refills dissolve in water 09/25/20 JARRED MONCADA MD Sep 28, 2020 11:09
--- NOTE | 2020-09-28 11:28 | PDOC ---
Infectious Disease Note Subjective Subjective feeling good, much better ROS ROS no n/v/d/ Vital Sign Vital Signs Vital Signs Date Time Temp Pulse Resp B/P (MAP) Pulse Ox O2 Delivery O2 Flow Rate FiO2 09/28/20 11:00 98.2 108 24 140/62 (88) 97 Room Air 98.2 Physical Exam PHYSICAL EXAM GENERAL: Awake gentleman, not in distress. VITAL SIGNS: Stable, afebrile. HEENT: NAD. NECK: Supple, no JVP, no lymphadenopathy. LUNGS: Clear. HEART: S1, S2 regular. ABDOMEN: Soft, nontender, no organomegaly. EXTREMITIES: No edema or cyanosis. SKIN: Unremarkable except he has a sacrococcygeal decubitus, which is small deep, but clean. Rest of skin exam is unremarkable. NEUROLOGIC: The patient is awake, does not follow command. Spontaneous extremity movements are present. Labs Micro Microbiology 09/25/20 Blood Culture - Preliminary, Resulted NO GROWTH AFTER 1 DAY Objective Assessment IMPRESSION: 1. Complicated urinary tract infection. 2. Hypotension. 3. Dehydration. 4. Encephalopathy. 5. Acute kidney injury on top of chronic renal insufficiency. 6. Schizophrenia. 7. Sacral decubitus. Plan Plan of Care change antibiotics to po cont local care pt/ot TRESSA KAT MD Sep 28, 2020 11:28
[2020-09-28 15:34] VITALS: BP 135/77
[2020-09-28] MEDS ORDERED: AMOXICILLIN/K CLAV 875/125MG TABLET. PO SCH (21:00)
== END 2020-09-28 16:50 | DRG 871 ==
LOC: ER 15:52 → 1 WEST ICU 18:00 → 6 SOUTH 09-26 15:40
PROVIDERS: ADMIT Family Medicine; ATTEND Family Medicine
PROC: 02WYX3Z Revision of Infusion Device in Great Vessel, External Approach (ICD-10-PCS; principal; 2020-09-25)
PROC: 02HV33Z Insertion of Infusion Device into Superior Vena Cava, Percutaneous Approach (ICD-10-PCS; 2020-09-25)
PROC: B548ZZA Ultrasonography of Superior Vena Cava, Guidance (ICD-10-PCS; 2020-09-25)
DX: A41.9 Sepsis, unspecified organism (principal); N17.0 Acute kidney failure with tubular necrosis; E43 Unspecified severe protein-calorie malnutrition; L89.324 Pressure ulcer of left buttock, stage 4; R65.21 Severe sepsis with septic shock; N39.0 Urinary tract infection, site not specified; G93.40 Encephalopathy, unspecified; T82.524A Displacement of infusion catheter, initial encounter; E86.0 Dehydration; L89.159 Pressure ulcer of sacral region, unspecified stage; K59.00 Constipation, unspecified; F41.8 Other specified anxiety disorders; F20.9 Schizophrenia, unspecified; N18.9 Chronic kidney disease, unspecified; R93.0 Abnormal findings on diagnostic imaging of skull and head, not elsewhere classified; Y71.2 Prosthetic and other implants, materials and accessory cardiovascular devices associated with adverse incidents; I12.9 Hypertensive chronic kidney disease with stage 1 through stage 4 chronic kidney disease, or unspecified chronic kidney disease; Z68.22 Body mass index [BMI] 22.0-22.9, adult; Z99.3 Dependence on wheelchair; Z86.73 Personal history of transient ischemic attack (TIA), and cerebral infarction without residual deficits; Z87.01 Personal history of pneumonia (recurrent)
CPT/HCPCS: 36415; 51702; 71045; 80048; 80053; 80164; 81001; 83605; 83690; 84484; 85025; 85610; 85730; 87040; 87086; 87106; 93005; 96365; 96375; J0515; J1644; J2543; J7030; J7040; 99291-25; G0378

== ENCOUNTER 2020-11-13 11:59 | Inpatient (IN) | payer MEDICARE, MEDICAID ==
[~2020-11-13] VITALS: Ht 188 cm; Wt 95.7 kg
[2020-11-13] VITALS (7 sets, daily range): BP systolic 96–175; BP diastolic 57–90
[~2020-11-13 11:59] MED LIST changes: +BENZ0.5T32 PO; +CHOL5000 PO; -CHOL500051 PO; +HALO2TAB PO; +HYDR12.58 PO; +LISI20TA18 PO; +POLY17PO29 PO
--- NOTE | 2020-11-13 12:11 | PHYS DOC ---
Past Medical History Past Medical History: Alcoholism, Anxiety, Constipation, Hypertension, Schizophrenia Additional Past Medical Histor: falls, urinary retention Past Surgical History: No Surgical History Smoking Status: Unknown if ever smoked Alcohol Use: None Drug Use: None Adult General HPI HPI Patient is a 64 year old male with a known PMH of HTN, skilled nursing patient with h/o etoh abuse now presents to the ER due to concern for altered mental status. According to skilled nursing about 20 minutes prior to arrival patient became unresponsive and appeared to be altered from his baseline. No reported p rior illness, changes or injury according to skilled nursing report. Review of Systems Review of Systems Constitutional: Denies fever or chills [] Eyes: Denies change in visual acuity, redness, or eye pain [] HENT: Denies nasal congestion or sore throat [] Respiratory: Denies cough or shortness of breath [] Cardiovascular: No additional information not addressed in HPI [] GI: Denies abdominal pain, nausea, vomiting, bloody stools or diarrhea [] : Denies dysuria or hematuria [] Musculoskeletal: Denies back pain or joint pain [] Integument: Denies rash or skin lesions [] Neurologic: Denies headache, focal weakness or sensory changes [] Endocrine: Denies polyuria or polydipsia [] All other systems were reviewed and found to be within normal limits, except as documented in this note. Current Medications Current Medications Current Medications Medications (Trade) Dose Ordered Sig/Jeffrey Start Time Stop Time Status Last Admin Dose Admin Acetaminophen (Tylenol) 650 mg PRN Q4HRS PRN 11/13/20 13:45 Dextrose (Dextrose 50%-Water Syringe) 12.5 gm PRN Q15MIN PRN 11/13/20 13:45 Docusate Sodium (Colace) 100 mg PRN DAILY PRN 11/13/20 13:45 Enoxaparin Sodium (Lovenox 40mg Syringe) 40 mg Q24H 11/13/20 14:00 Etomidate (Amidate) 20 mg 1X ONCE 11/13/20 12:30 11/13/20 12:31 DC 11/13/20 12:21 20 MG Iohexol (Omnipaque 300 Mg/ml) 75 ml 1X ONCE 11/13/20 13:45 11/13/20 13:46 DC Ketorolac Tromethamine (Toradol 15mg Vial) 15 mg 1X ONCE 11/13/20 12:30 11/13/20 12:44 DC 11/13/20 13:11 15 MG Labetalol HCl (Normodyne Iv Push) 10 mg PRN Q10MIN PRN 11/13/20 12:15 Lorazepam (Ativan Inj) 2 mg STK-MED ONCE 11/13/20 12:05 11/13/20 12:06 DC Midazolam HCl 50 mg/Sodium Chloride 50 ml @ 0 mls/hr 1X ONCE 11/13/20 13:45 11/13/20 13:46 DC 11/13/20 13:49 1 MLS/HR Nicardipine HCl 50 mg/Sodium Chloride 250 ml @ 25 mls/hr CONT PRN PRN 11/13/20 12:15 Norepinephrine Bitartrate 8 mg/ Dextrose 258 ml @ 16.448 mls/ hr 1X ONCE 11/13/20 13:45 11/14/20 05:26 11/13/20 13:48 16.448 MLS/HR Ondansetron HCl (Zofran) 4 mg PRN Q6HRS PRN 11/13/20 13:45 Pantoprazole Sodium (PROTONIX VIAL for IV PUSH) 40 mg DAILYAC 11/14/20 07:30 Piperacillin Sod/ Tazobactam Sod 3.375 gm/Sodium Chloride 50 ml @ 100 mls/hr 1X ONCE 11/13/20 12:30 11/13/20 12:59 DC 11/13/20 13:12 100 MLS/HR Propofol 100 ml @ 2.55 mls/hr CONT PRN 11/13/20 12:30 11/13/20 12:35 2.55 MLS/HR Sennosides (Senna) 17.2 mg PRN BID PRN 11/13/20 13:45 Sodium Chloride 1,000 ml @ 1,000 mls/hr 1X ONCE 11/13/20 14:00 11/13/20 14:59 DC 11/13/20 14:00 1,000 MLS/HR Succinylcholine Chloride (Anectine) 100 mg 1X ONCE 11/13/20 12:30 11/13/20 12:31 DC 11/13/20 12:21 100 MG Vancomycin HCl 1.5 gm/Sodium Chloride 500 ml @ 250 mls/hr 1X ONCE 11/13/20 13:00 11/13/20 14:59 DC Allergies Allergies Allergies Coded Allergies Type Severity Reaction Last Updated Verified No Known Drug Allergies 01/16/19 No Physical Exam Physical Exam Constitutional: Well developed, well nourished, no acute distress, non-toxic appearance. [] HENT: Normocephalic, atraumatic, bilateral external ears normal, oropharynx moist, no oral exudates, nose normal. [] Eyes: PERRLA, EOMI, conjunctiva normal, no discharge. [] Neck: Normal range of motion, no tenderness, supple, no stridor. [] Cardiovascular:Heart rate regular rhythm, no murmur [] Lungs & Thorax: Bilateral breath sounds clear to auscultation [] Abdomen: Bowel sounds normal, soft, no tenderness, no masses, no pulsatile masses. [] Skin: Warm, dry, no erythema, no rash. [] Back: No tenderness, no CVA tenderness. [] Extremities: No tenderness, no cyanosis, no clubbing, ROM intact, no edema. [] Neurologic: , normal motor function, normal sensory function, no focal deficits noted. Continuous nonintentional tremor, no obvious deficits, leftward gaze preference Psychologic: Affect normal, judgement normal, mood normal. [] Current Patient Data Vital Signs Vital Signs Date Time Temp Pulse Resp B/P (MAP) Pulse Ox O2 Delivery O2 Flow Rate FiO2 11/13/20 15:01 100 118/64 (82) 100 Ventilator 11/13/20 12:30 104.3 104.3 11/13/20 12:24 18 15.0 Lab Values Laboratory Tests Test 11/13/20 11:53 11/13/20 12:07 11/13/20 13:07 11/13/20 13:10 White Blood Count 17.0 x10^3/uL (4.0-11.0) H Red Blood Count 3.49 x10^6/uL (4.30-5.70) L Hemoglobin 9.4 g/dL (13.0-17.5) L Hematocrit 28.8 % (39.0-53.0) L Mean Corpuscular Volume 83 fL (79-100) Mean Corpuscular Hemoglobin 27 pg (25-35) Mean Corpuscular Hemoglobin Concent 33 g/dL (31-37) Red Cell Distribution Width 16.6 % (11.5-14.5) H Platelet Count 273 x10^3/uL (140-400) Neutrophils (%) (Auto) 91 % (31-73) H Lymphocytes (%) (Auto) 3 % (24-48) L Monocytes (%) (Auto) 6 % (0-9) Eosinophils (%) (Auto) 0 % (0-3) Basophils (%) (Auto) 0 % (0-3) Neutrophils # (Auto) 15.6 x10^3/uL (1.8-7.7) H Lymphocytes # (Auto) 0.5 x10^3/uL (1.0-4.8) L Monocytes # (Auto) 0.9 x10^3/uL (0.0-1.1) Eosinophils # (Auto) 0.0 x10^3/uL (0.0-0.7) Basophils # (Auto) 0.0 x10^3/uL (0.0-0.2) Segmented Neutrophils % 89 % (35-66) H Band Neutrophils % 3 % (0-9) Lymphocytes % 3 % (24-48) L Monocytes % 5 % (0-10) Platelet Estimate Adequate (ADEQUATE) Prothrombin Time 14.7 SEC (11.7-14.0) H Prothrombin Time INR 1.2 (0.8-1.1) H Activated Partial Thromboplast Time 31 SEC (24-38) Glucose (Fingerstick) 127 mg/dL (70-99) H Sodium Level 142 mmol/L (136-145) Potassium Level 3.7 mmol/L (3.5-5.1) Chloride Level 103 mmol/L (98-107) Carbon Dioxide Level 29 mmol/L (21-32) Anion Gap 10 (6-14) Blood Urea Nitrogen 25 mg/dL (8-26) Creatinine 1.3 mg/dL (0.7-1.3) Estimated GFR (Cockcroft-Gault) 67.2 Glucose Level 162 mg/dL (70-99) H Lactic Acid Level 2.2 mmol/L (0.4-2.0) H Calcium Level 8.1 mg/dL (8.5-10.1) L Troponin I Quantitative < 0.017 ng/mL (0.000-0.055) O2 Saturation 98 % (92-99) Arterial Blood pH 7.53 (7.35-7.45) H Arterial Blood pCO2 at Patient Temp 35 mmHg (35-46) Arterial Blood pO2 at Patient Temp 127 mmHg (65-108) H Arterial Blood HCO3 29 mmol/L (21-28) H Arterial Blood Base Excess 6 mmol/L (-3-3) H FiO2 40% vent Laboratory Tests 11/13/20 11:53 Laboratory Tests 11/13/20 13:07 EKG EKG [] Radiology/Procedures Radiology/Procedures EXAM: Abdomen and pelvis CT with intravenous contrast. HISTORY: Pain. TECHNIQUE: Computed tomographic images of the abdomen and pelvis were obtained following the administration of intravenous contrast. Multiplanar reformatting was performed. *One or more of the following individualized dose reduction techniques were utilized for this examination: 1. Automated exposure control. 2. Adjustment of the mA and/or kV according to patient size. 3. Use of iterative reconstruction technique. COMPARISON: None. FINDINGS: Evaluation of the lower thorax demonstrates trace bilateral pleural effusions and right greater than left posterior dependent and basilar atelectasis. There is a nasogastric tube within the stomach. There is a mildly patulous distal esophagus. No hepatic lesion is seen. The gallbladder, pancreas, spleen and adrenal glands are unremarkable. There is mild right hydronephrosis. There is right than left urothelial thickening and slight stranding extending to the bladder. There is gas within the bladder due to recent catheterization. The Terrazas catheter balloon anterior the catheter within the penile urethra. There is a simple cyst within the left kidney measuring 7.8 cm. There is also a tiny left renal cortical cyst. There is a large amount of stool throughout the colon. There is a large amount of stool within the rectal vault with slight surrounding stranding and trace fluid within the presacral space. There is no evidence of small bowel obstruction. There is no appendicitis. The aorta is normal in caliber. There is no lymphadenopathy. There are degenerative changes involving the spine and hips, predominantly involving the lumbosacral junction. There is no acute osseous finding. IMPRESSION: 1. Large amount of stool throughout the colon and within the rectal vault consistent with constipation. There is superimposed rectal wall thickening and perirectal stranding and trace fluid likely due to impaction. 2. Terrazas catheter balloon and tip within the penile urethra. Catheter repositioning is indicated. 3. Mild right hydronephrosis and right greater than left urothelial thickening and surrounding stranding suggesting ascending urinary tract infection. There is also bladder wall thickening likely due to cystitis. Correlate with urinalysis. 4. Trace pleural effusions and bilateral posterior dependent atelectasis. Electronically signed by: Myra Farley MD (11/13/2020 3:03 PM) [id number] Course & Med Decision Making Course & Med Decision Making Pertinent Labs and Imaging studies reviewed. (See chart for details) 64-year-old male presented to emergency department for acute onset of altered mental status reported from skilled nursing to have an acute change in their c oncern about stroke. On arrival to the emergency department the patient was noted to be obtunded and was difficult to determine if this was a significant arrangement from the patient's baseline based on limited skilled nursing report. On my initial evaluation there was some concern for seizure-like activity given the patient's history of alcohol and benzo use and the focality of the patient's symptoms. 2 of Ativan was provided. Patient also noted on arrival to have desaturation to 67%. Because of the patient's altered mental status and this setting of acute hypoxia decision was made to intubate the patient emergently. Patient was successfully intubated using 20 of etomidate and 100 of suc cinylcholine without any known complications. Of note the patient also noted to have a temperature of 104.3 on arrival rectally. At this time there is significant concern for underlying sepsis of uncertain etiology, we are treating the patient with antibiotics empirically giving IV fluids. Also CT scan of the head is pending. I spent 45 minutes of critical care time on this patient independent of teaching or procedures Dragon Disclaimer Dragon Disclaimer This electronic medical record was generated, in whole or in part, using a voice recognition dictation system. Departure Departure Impression: Primary Impression: Acute respiratory failure Additional Impressions: Septic shock Urinary tract infection Disposition: ADMITTED INPATIENT Condition: CRITICAL Referrals: LISA CASTAÑEDA MD (PCP) Intubation Procedure Intubation Procedure Intub Indication: Respiratory failure Consent: Unable to give consent due to emergent nature. Medications Used: see nursing note Procedure: The patient was placed in the appropriate position. Intubation was performed and direct visualization with a 7.5 endotracheal tube. Endotracheal tube secured at 24 cm at the teeth. Initial confirmation of placement included bilateral breath sounds, tube fogging, adequate chest rise, adequate pulse oximetry reading. A chest x-ray to verify correct placement of the tube showed appropriate tube position. The patient tolerated the procedure well. Complications: none. Problem Qualifiers LISA CHACON MD Nov 13, 2020 12:11
[2020-11-13] MEDS ORDERED: IV NORMAL SALINE 50ML 50 ML IV ONE (12:15)
[2020-11-13] MEDS ORDERED: LABETALOL 20 MG/4 ML DISP.SYRIN. IVP PRN (12:15)
[2020-11-13] MEDS ORDERED: PROPOFOL 100 ML IV ONE (12:26)
[2020-11-13 12:29] LABS: BASO % 0 % (0-3); EOS % 0 % (0-3); HEMATOCRIT 28.8 % (39.0-53.0); HEMOGLOBIN 9.4 g/dL (13.0-17.5); LYMPH # 0.5 x10^3/uL (1.0-4.8); LYMPH % 3 % (24-48); MEAN CORPUSCULAR HEMOGLOBIN 27 pg (25-35); MEAN CORPUSCULAR HGB CONC 33 g/dL (31-37); MEAN CORPUSCULAR VOLUME 83 fL (79-100); MONO # 0.9 x10^3/uL (0.0-1.1); MONO % 6 % (0-9); NEUT # 15.6 x10^3/uL (1.8-7.7); NEUT % 91 % (31-73); PLATELET COUNT 273 x10^3/uL (140-400); RED BLOOD COUNT 3.49 x10^6/uL (4.30-5.70); RED CELL DISTRIBUTION WIDTH 16.6 % (11.5-14.5)
[2020-11-13] MEDS ORDERED: KETOROLAC 15 MG/ML VIAL. IVP ONE (12:30)
[2020-11-13] MEDS ORDERED: SUCCINYLCHOLINE 200 MG/10 ML VIAL. IV ONE (12:30)
[2020-11-13] MEDS ORDERED: PIPERACILLIN/TAZOBACTAM 3.375 GM in IV NORMAL SALINE 50ML 50 ML IV ONE (12:30)
[2020-11-13] MEDS ORDERED: ETOMIDATE 20 MG/10 ML VIAL. IV ONE (12:30)
[2020-11-13] MEDS ORDERED: PROPOFOL 100 ML IV PRN (12:30)
[2020-11-13 12:39] LABS: PROTHROMBIN TIME PATIENT 14.7 SEC (11.7-14.0)
--- NOTE | 2020-11-13 12:51 | RAD ---
EXAM: Chest, single view. HISTORY: Intubation. COMPARISON: 09/25/2020 FINDINGS: A frontal view of the chest is obtained. There is an endotracheal tube within the mid trach ea. There is nasogastric tube extending into the stomach. There is no infiltrate, pleural effusion or pneumothorax. There is a stable cardiac silhouette. There are prominent air-filled bowel within the upper abdomen and there is a prominent amount of stool within the colon. IMPRESSION: 1. Endotracheal tube and nasogastric tube in expected position. 2. No acute pulmonary finding. Electronically signed by: Myra Farley MD (11/13/2020 12:49 PM) [id number]
[2020-11-13] MEDS ORDERED: VANCOMYCIN 1.5 GM in IV NORMAL SALINE 500ML BAG 500 ML IV ONE (13:00)
--- NOTE | 2020-11-13 13:04 | RAD ---
PQRS Compliance Statement: One or more of the following individualized dose reduction techniques were utilized for this examinat ion: 1. Automated exposure control 2. Adjustment of the mA and/or kV according to patient size 3. Use of iterative reconstruction technique CT HEAD WITHOUT CONTRAST History: : altered mental status. PATIENT UNRESPONSIVE 12:33PM / Comparison: CT head without contrast September 01, 2020. Technique: Axial images are obtained of the head from the skull base through the vertex without IV co ntrast. Findings: No mass-effect, midline shift, extra-axial fluid collection, hemorrhage, or obvious acute infarction is identified. Basilar cisterns are patent. The ventricles and sulci are prominent, consistent with age-related cerebral atrophy. There is mild p eriventricular white matter hypoattenuation. This is a nonspecific finding but is commonly due to ch ronic small vessel ischemic disease. Old left basal ganglia lacunar infarct. Bone windows demonstrate no acute calvarial abnormality. Mild mucosal thickening left sphenoid sinus. The other visualized paranasal sinuses are clear. Mastoid air cells are well aerated. IMPRESSION: No acute intracranial abnormality. FOR INTERNAL CODING PURPOSES Critical result: Findings discussed with Dr. Thomas in the ED at 11/13/2020 1:01 PM. RESULT CODE: (C) 1. Electronically signed by: John Bear MD (11/13/2020 1:02 PM) [id number]
[2020-11-13 13:18] LABS: % BANDS 3 % (0-9); % LYMPHS 3 % (24-48); % MONOS 5 % (0-10); % SEGS 89 % (35-66)
[2020-11-13 13:19] LABS: PLT ESTIMATE ADEQUATE (ADEQUATE)
[2020-11-13 13:26] LABS: CALCIUM 8.1 mg/dL (8.5-10.1); CREATININE 1.3 mg/dL (0.7-1.3); GFR 67.2; POTASSIUM 3.7 mmol/L (3.5-5.1)
[2020-11-13 13:31] LABS: BASE EXCESS ABG 6 mmol/L (-3-3); HCO3 ABG 29 mmol/L (21-28); PCO2 ABG 35 mmHg (35-46); PO2 ABG 127 mmHg (65-108); SAT O2 ABG 98 % (92-99)
[2020-11-13 13:33] LABS: FIO2 ABG 40% VENT
[2020-11-13] MEDS ORDERED: MIDAZOLAM HCL 50 MG in IV NORMAL SALINE 50ML 50 ML IV ONE (13:45)
[2020-11-13] MEDS ORDERED: SENNOSIDES 8.6 MG TABLET PO PRN (13:45)
[2020-11-13] MEDS ORDERED: NOREPINEPHRINE VIAL 8 MG in IV DEXTROSE 5% 250 ML IV ONE (13:45)
[2020-11-13] MEDS ORDERED: ONDANSETRON PF 4 MG/2 ML VIAL. IVP PRN (13:45)
[2020-11-13] MEDS ORDERED: DEXTROSE 50% 25 GM / 50ML DISP.SYRIN. IV PRN (13:45)
[2020-11-13] MEDS ORDERED: IOHEXOL 300 MG/ML 100ML VIAL. IV ONE (13:45)
[2020-11-13] MEDS ORDERED: ACETAMINOPHEN 325 MG TABLET. PO PRN (13:45)
[2020-11-13] MEDS ORDERED: DOCUSATE SODIUM 100 MG CAPSULE. PO PRN (13:45)
--- NOTE | 2020-11-13 13:48 | PDOC1 ---
History and Physical Date of Service: DOS: DATE: 11/13/20 TIME: 13:41 Chief Complaint: Chief Complain: Altered mental status. History of Present Illness: HPI: History obtained from ED physician Patient is a 64-year-old male with past medical history of alcohol dependence, anxiety, schizophrenia, hypertension who resides at [facility] who presents to the ED due to concern for altered mental status. According to the care home patient was unresponsive and was altered from his baseline. In the ED patient required to be intubated due to possible seizure and for airway protection. No reported prior illness, changes or injury according to care home report. Past Medical/Surgical History: PMH/PSH: Upon chart review Past Medical History: Alcoholism, Anxiety, Constipation, Hypertension, Schizophrenia, falls, urinary retention Past Surgical History: No Surgical History Allergies: Allergies: Coded Allergies: No Known Drug Allergies (Unverified , 01/16/19) Family History: Family History: Unable to obtain due to intubation and sedation Social History: Social History: Smoking Status: Unknown if ever smoked Alcohol Use: None Drug Use: None Current Medications: Current Medications Current Medications Sodium Chloride 50 ml @ 50 mls/hr 1X ONCE IV ; Start 11/13/20 at 12:15; Stop 11/13/20 at 13:14; Status DC Labetalol HCl (Normodyne Iv Push) 10 mg PRN Q10MIN PRN IVP HYPERTENSION; Start 11/13/20 at 12:15 Nicardipine HCl 50 mg/Sodium Chloride 250 ml @ 25 mls/hr CONT PRN PRN IV HYPERTENSION; Start 11/13/20 at 12:15 Lorazepam (Ativan Inj) 2 mg 1X ONCE IVP Last administered on 11/13/20at 12:07; Start 11/13/20 at 12:15; Stop 11/13/20 at 12:16; Status DC Lorazepam (Ativan Inj) 2 mg STK-MED ONCE .ROUTE ; Start 11/13/20 at 12:05; Stop 11/13/20 at 12:06; Status DC Propofol 100 ml @ As Directed STK-MED ONCE IV ; Start 11/13/20 at 12:26; Stop 11/13/20 at 12:27; Status DC Piperacillin Sod/ Tazobactam Sod 3.375 gm/Sodium Chloride 50 ml @ 100 mls/hr 1X ONCE IV Last administered on 11/13/20at 13:12; Start 11/13/20 at 12:30; Stop 11/13/20 at 12:59; Status DC Vancomycin HCl 1.5 gm/Sodium Chloride 500 ml @ 250 mls/hr 1X ONCE IV ; Start 11/13/20 at 13:00; Stop 11/13/20 at 14:59 Etomidate (Amidate) 20 mg 1X ONCE IV ; Start 11/13/20 at 12:30; Stop 11/13/20 at 12:31; Status DC Succinylcholine Chloride (Anectine) 100 mg 1X ONCE IV ; Start 11/13/20 at 12:30; Stop 11/13/20 at 12:31; Status DC Ketorolac Tromethamine (Toradol 15mg Vial) 15 mg 1X ONCE IVP Last administered on 11/13/20at 13:11; Start 11/13/20 at 12:30; Stop 11/13/20 at 12:44; Status DC Propofol 100 ml @ 2.55 mls/hr CONT PRN IV PER PROTOCOL Last administered on 11/13/20at 12:35; Start 11/13/20 at 12:30 Iohexol (Omnipaque 300 Mg/ml) 75 ml 1X ONCE IV ; Start 11/13/20 at 13:45; Stop 11/13/20 at 13:46 Active Scripts Active Quetiapine Fumarate 100 Mg Tablet 400 Mg PO QHS 30 Days Tylenol (Acetaminophen) 325 Mg Tablet 650 Mg PO PRN Q4HRS PRN 30 Days Reported Lisinopril 20 Mg Tablet 1 Tab PO DAILY Hydrochlorothiazide Tablet (Hydrochlorothiazide) 12.5 Mg Tablet 12.5 Mg PO DAILY Haloperidol 2 Mg Tablet 2 Tab PO BID Benztropine Mesylate 0.5 Mg Tablet 1 Tab PO BID Valproic Acid 250 Mg Capsule 500 Mg PO BID Miralax (Polyethylene Glycol 3350) 17 Gm Powd.pack 1 Packet PO PRN DAILY PRN 2 Days dissolve in water ROS: Review of Systems Review of System Unable to obtain due to altered mental status Physical Exam: Vital Signs: Vital Signs Date Time Temp Pulse Resp B/P (MAP) Pulse Ox O2 Delivery O2 Flow Rate FiO2 11/13/20 13:05 Ventilator 11/13/20 12:36 100 11/13/20 12:00 103.8 137 18 132/73 (92) 103.8 Physcial Exam: GEN: No apparent distress. Alert and oriented HEENT: Normal cephalic, atraumatic, external auditory canals are patent EYES: Extraocular muscles are intact, pupil are equally round and reactive to light and accommodation MUSCULOSKELETAL: Well developed , well nourished, good range of motion ENDOCRINE: No thyromegaly was palpated LYMPHATICS: No cervical chain or axillary nodes were noted HEMATOPOIETIC: No bruising NECK: Supple, no JVD, no thyromegaly was noted LUNGS: Clear to auscultation in all lung vazquez without rhonchi or wheezing HEART: RRR, S!, S2 present. Peripheral pulses intact, no obvious murmurs noted ABDOMEN: Soft, nontender. Positive bowel sounds, no organomegaly, normal bowel sounds EXTREMITIES: Without clubbing, cyanosis, or edema. Pedal pulses intact. Negative Homans sign NEUROLOGIC: Normal speech and tone. A&O x 3, moves all extremities, no obvious focal deficits PSYCHIATRIC: Normal affect, normal mood. Stable SKIN: No ulcerations or rashes, good skin turgor, no jaundice VASCULAR: Good capillary refill, neurovascular bundle appears to be intact Labs: Labs: Laboratory Tests Test 11/13/20 11:53 11/13/20 12:07 11/13/20 13:07 11/13/20 13:10 White Blood Count 17.0 x10^3/uL (4.0-11.0) Red Blood Count 3.49 x10^6/uL (4.30-5.70) Hemoglobin 9.4 g/dL (13.0-17.5) Hematocrit 28.8 % (39.0-53.0) Mean Corpuscular Volume 83 fL (79-100) Mean Corpuscular Hemoglobin 27 pg (25-35) Mean Corpuscular Hemoglobin Concent 33 g/dL (31-37) Red Cell Distribution Width 16.6 % (11.5-14.5) Platelet Count 273 x10^3/uL (140-400) Neutrophils (%) (Auto) 91 % (31-73) Lymphocytes (%) (Auto) 3 % (24-48) Monocytes (%) (Auto) 6 % (0-9) Eosinophils (%) (Auto) 0 % (0-3) Basophils (%) (Auto) 0 % (0-3) Neutrophils # (Auto) 15.6 x10^3/uL (1.8-7.7) Lymphocytes # (Auto) 0.5 x10^3/uL (1.0-4.8) Monocytes # (Auto) 0.9 x10^3/uL (0.0-1.1) Eosinophils # (Auto) 0.0 x10^3/uL (0.0-0.7) Basophils # (Auto) 0.0 x10^3/uL (0.0-0.2) Segmented Neutrophils % 89 % (35-66) Band Neutrophils % 3 % (0-9) Lymphocytes % 3 % (24-48) Monocytes % 5 % (0-10) Platelet Estimate Adequate (ADEQUATE) Prothrombin Time 14.7 SEC (11.7-14.0) Prothromb Time International Ratio 1.2 (0.8-1.1) Activated Partial Thromboplast Time 31 SEC (24-38) Glucose (Fingerstick) 127 mg/dL (70-99) Sodium Level 142 mmol/L (136-145) Potassium Level 3.7 mmol/L (3.5-5.1) Chloride Level 103 mmol/L (98-107) Carbon Dioxide Level 29 mmol/L (21-32) Anion Gap 10 (6-14) Blood Urea Nitrogen 25 mg/dL (8-26) Creatinine 1.3 mg/dL (0.7-1.3) Estimated GFR (Cockcroft-Gault) 67.2 Glucose Level 162 mg/dL (70-99) Calcium Level 8.1 mg/dL (8.5-10.1) O2 Saturation 98 % (92-99) Arterial Blood pH 7.53 (7.35-7.45) Arterial Blood pCO2 at Patient Temp 35 mmHg (35-46) Arterial Blood pO2 at Patient Temp 127 mmHg (65-108) Arterial Blood HCO3 29 mmol/L (21-28) Arterial Blood Base Excess 6 mmol/L (-3-3) FiO2 40% vent Laboratory Tests Test 11/13/20 11:53 11/13/20 12:07 11/13/20 13:07 11/13/20 13:10 White Blood Count 17.0 x10^3/uL (4.0-11.0) Red Blood Count 3.49 x10^6/uL (4.30-5.70) Hemoglobin 9.4 g/dL (13.0-17.5) Hematocrit 28.8 % (39.0-53.0) Mean Corpuscular Volume 83 fL (79-100) Mean Corpuscular Hemoglobin 27 pg (25-35) Mean Corpuscular Hemoglobin Concent 33 g/dL (31-37) Red Cell Distribution Width 16.6 % (11.5-14.5) Platelet Count 273 x10^3/uL (140-400) Neutrophils (%) (Auto) 91 % (31-73) Lymphocytes (%) (Auto) 3 % (24-48) Monocytes (%) (Auto) 6 % (0-9) Eosinophils (%) (Auto) 0 % (0-3) Basophils (%) (Auto) 0 % (0-3) Neutrophils # (Auto) 15.6 x10^3/uL (1.8-7.7) Lymphocytes # (Auto) 0.5 x10^3/uL (1.0-4.8) Monocytes # (Auto) 0.9 x10^3/uL (0.0-1.1) Eosinophils # (Auto) 0.0 x10^3/uL (0.0-0.7) Basophils # (Auto) 0.0 x10^3/uL (0.0-0.2) Segmented Neutrophils % 89 % (35-66) Band Neutrophils % 3 % (0-9) Lymphocytes % 3 % (24-48) Monocytes % 5 % (0-10) Platelet Estimate Adequate (ADEQUATE) Prothrombin Time 14.7 SEC (11.7-14.0) Prothromb Time International Ratio 1.2 (0.8-1.1) Activated Partial Thromboplast Time 31 SEC (24-38) Glucose (Fingerstick) 127 mg/dL (70-99) Sodium Level 142 mmol/L (136-145) Potassium Level 3.7 mmol/L (3.5-5.1) Chloride Level 103 mmol/L (98-107) Carbon Dioxide Level 29 mmol/L (21-32) Anion Gap 10 (6-14) Blood Urea Nitrogen 25 mg/dL (8-26) Creatinine 1.3 mg/dL (0.7-1.3) Estimated GFR (Cockcroft-Gault) 67.2 Glucose Level 162 mg/dL (70-99) Calcium Level 8.1 mg/dL (8.5-10.1) O2 Saturation 98 % (92-99) Arterial Blood pH 7.53 (7.35-7.45) Arterial Blood pCO2 at Patient Temp 35 mmHg (35-46) Arterial Blood pO2 at Patient Temp 127 mmHg (65-108) Arterial Blood HCO3 29 mmol/L (21-28) Arterial Blood Base Excess 6 mmol/L (-3-3) FiO2 40% vent Images: Images Negative head CT CXR Impression: 1. No acute cardiopulmonary process. PROCEDURE: CT ABD PELV W/ IV CONTRST ONLY IMPRESSION: 1. Large amount of stool throughout the colon and within the rectal vault consistent with constipation. There is superimposed rectal wall thickening and perirectal stranding and trace fluid likely due to impaction. 2. Terrazas catheter balloon and tip within the penile urethra. Catheter repositioning is indicated. 3. Mild right hydronephrosis and right greater than left urothelial thickening and surrounding stranding suggesting ascending urinary tract infection. There is also bladder wall thickening likely due to cystitis. Correlate with urinalysis. 4. Trace pleural effusions and bilateral posterior dependent atelectasis. Assessment/Plan Assessment/Plan Acute metabolic encephalopathy Acute hypoxic respiratory failure status post intubation 11/13/2020 Severe constipation Mild right hydronephrosis Acute cystitis Concern for seizure activity History of schizophrenia History of alcohol dependence History of hypertension ICU care Neurology consult Pulmonary consult for vent management Pending urine toxic drug screen Continue empiric IV antibiotic Pending urine and blood cultures IV Haldol as needed for agitation, consider sitter as needed if non-redirectable agitation Avoid physical restraints, catheters or tubes, and benzodiazepines Nutrition consult if there is malnutrition or concern for vitamin deficiencies Continue IV fluids Lovenox for DVT prophylaxis Protonix while intubated GI prophylaxis ADA diet Full code Discussed with RN and SW Dispo ICU care A total of 55 minutes of critical care time was spent in reviewing chart, labs, and images. Discussed with RN and SW. Justifications for Admission Other Justification Septic shock, urosepsis, acute renal failure JARRED MONCADA MD Nov 13, 2020 13:48
[2020-11-13] MEDS: IV NORMAL SALINE 1000ML BAG 1,000 ML IV SCH (13:51)
--- NOTE | 2020-11-13 13:54 | EKG ---
[facility] [address] [place] [address] Test Date: 2020-11-13 Test Time: 12:20:05 Pat Name: EDMUND WAGONER Department: Room: Gender: M [employer]: : 1955 Requested By: LISA CHACON Order Number: [id number] Reading MD: Measurements Intervals [place] Rate: 132 P: SC: QRS: 47 QRSD: 72 T: 102 QT: 342 QTc: 510 Interpretive Statements SUPRAVENTRICULAR TACHYCARDIA T ABNORMALITY IN ANTERIOR LEADS HIGH LATERAL LEADS ABNORMAL ECG RI6.01 No previous ECG available for comparison
[2020-11-13] MEDS: ENOXAPARIN 40 MG/0.4 ML SYRINGE. SQ SCH (14:00)
[2020-11-13] MEDS ORDERED: IV NORMAL SALINE 1000ML BAG 1,000 ML IV ONE ×2 (14:00)
--- NOTE | 2020-11-13 15:05 | RAD ---
EXAM: Abdomen and pelvis CT with intravenous contrast. HISTORY: Pain. TECHNIQUE: Computed tomographic images of the abdomen and pelvis were obtained following the administ ration of intravenous contrast. Multiplanar reformatting was performed. *One or more of the following individualized dose reduction techniques were utilized for this examina tion: 1. Automated exposure control. 2. Adjustment of the mA and/or kV according to patient size. 3. Use of iterative reconstruction technique. COMPARISON: None. FINDINGS: Evaluation of the lower thorax demonstrates trace bilateral pleural effusions and right gre ater than left posterior dependent and basilar atelectasis. There is a nasogastric tube within the st omach. There is a mildly patulous distal esophagus. No hepatic lesion is seen. The gallbladder, pancr eas, spleen and adrenal glands are unremarkable. There is mild right hydronephrosis. There is right than left urothelial thickening and slight strandi ng extending to the bladder. There is gas within the bladder due to recent catheterization. The Terrazas catheter balloon anterior the catheter within the penile urethra. There is a simple cyst within the left kidney measuring 7.8 cm. There is also a tiny left renal cortical cyst. There is a large amount of stool throughout the colon. There is a large amount of stool within the re ctal vault with slight surrounding stranding and trace fluid within the presacral space. There is no evidence of small bowel obstruction. There is no appendicitis. The aorta is normal in caliber. There is no lymphadenopathy. There are degenerative changes involving the spine and hips, predominantly involving the lumbosacral junction. There is no acute osseous find ing. IMPRESSION: 1. Large amount of stool throughout the colon and within the rectal vault consistent with constipatio n. There is superimposed rectal wall thickening and perirectal stranding and trace fluid likely due t o impaction. 2. Terrazas catheter balloon and tip within the penile urethra. Catheter repositioning is indicated. 3. Mild right hydronephrosis and right greater than left urothelial thickening and surrounding strand ing suggesting ascending urinary tract infection. There is also bladder wall thickening likely due to cystitis. Correlate with urinalysis. 4. Trace pleural effusions and bilateral posterior dependent atelectasis. Electronically signed by: Myra Farley MD (11/13/2020 3:03 PM) [id number]
[2020-11-13] MEDS ORDERED: ONDANSETRON PF 4 MG/2 ML VIAL. IV PRN (15:15)
[2020-11-13] MEDS ORDERED: MORPHINE SULFATE 4 MG/ML VIAL. IV PRN (15:15)
[2020-11-13 16:10] LABS: BILIRUBIN,URINE NEGATIVE (NEG); CLARITY,URINE TURBID; COLOR,URINE AMBER; NITRITE,URINE NEGATIVE (NEG); PROTEIN,URINE 100 mg/dL (NEG-TRACE)
[2020-11-13 17:13] LABS: BACTERIA,URINE MODERATE /HPF (0-FEW); RBC,URINE TNTC /HPF (0-2); WBC,URINE TNTC /HPF (0-4)
[2020-11-13 17:16] LABS: HYALINE CASTS, URINE FEW /HPF; YEAST,URINE PRESENT /HPF
[2020-11-13] MEDS: CEFEPIME HCL IV Push 2 GM VIAL. IVP SCH (18:05)
[2020-11-13] MEDS ORDERED: MIDAZOLAM 100mg/100ml NS BAG 100 ML IV PRN (19:30)
[2020-11-14] VITALS (24 sets, daily range): BP systolic 95–138; BP diastolic 57–88
[2020-11-14] MEDS: IV NORMAL SALINE 1000ML BAG 1,000 ML IV SCH ×3 (03:53→16:35)
[2020-11-14] MEDS: PANTOPRAZOLE IV PUSH 40 MG VIAL. IVP SCH (07:29)
[2020-11-14 07:41] LABS: BASO % 0 % (0-3); EOS % 0 % (0-3); HEMATOCRIT 27.1 % (39.0-53.0); HEMOGLOBIN 8.6 g/dL (13.0-17.5); LYMPH # 0.4 x10^3/uL (1.0-4.8); LYMPH % 3 % (24-48); MEAN CORPUSCULAR HEMOGLOBIN 28 pg (25-35); MEAN CORPUSCULAR HGB CONC 32 g/dL (31-37); MEAN CORPUSCULAR VOLUME 86 fL (79-100); MONO # 0.9 x10^3/uL (0.0-1.1); MONO % 8 % (0-9); NEUT # 10.4 x10^3/uL (1.8-7.7); NEUT % 89 % (31-73); PLATELET COUNT 209 x10^3/uL (140-400); RED BLOOD COUNT 3.15 x10^6/uL (4.30-5.70); RED CELL DISTRIBUTION WIDTH 16.8 % (11.5-14.5); WHITE BLOOD COUNT 11.7 x10^3/uL (4.0-11.0)
[2020-11-14 07:50] LABS: BASE EXCESS ABG 3 mmol/L (-3-3); HCO3 ABG 27 mmol/L (21-28); PCO2 ABG 36 mmHg (35-46); PO2 ABG 138 mmHg (65-108); SAT O2 ABG 99 % (92-99)
[2020-11-14 07:55] LABS: FIO2 ABG 40%+5
[2020-11-14 08:05] LABS: CREATININE 1.2 mg/dL (0.7-1.3); GFR 73.8; POTASSIUM 3.4 mmol/L (3.5-5.1)
--- NOTE | 2020-11-14 10:01 | CONS ---
DATE OF CONSULTATION: 11/14/2020 PULMONARY CONSULTATION ATTENDING PHYSICIAN: Dr. Rollins. REASON FOR CONSULTATION: Respiratory failure, encephalopathy, possible seizure. HISTORY OF PRESENT ILLNESS: The patient is a 64-year-old male, who has history of alcohol dependence, anxiety, schizophrenia and hypertension. He resides at [facility] for wounds. The patient was brought into the Emergency Room with altered mental status. He was intubated for airway protection. There was a concern for possible seizure. At present, he is sedated with Versed. I have reviewed the patient's chest x-ray; there is no significant infiltrate seen. The patient also had CT abdomen and pelvis, which showed large amount of stool throughout the colon and within the rectal vault, consistent with constipation; he has mild right hydronephrosis; he has trace pleural effusions and some dependent atelectasis. His arterial blood gases reveal a pH of 7.49, a pCO2 of 36 and a pO2 of 138 on 40% FIO2 and 5 of PEEP. At present, he is sedated and not following any commands. PAST MEDICAL HISTORY: Alcoholism, anxiety, constipation, hypertension, schizophrenia, falls, urinary retention. SURGERIES: No known surgeries. ALLERGIES: None. MEDICATIONS: Reviewed as listed in the MRAD including antibiotic daptomycin, cefepime, Lovenox for DVT prophylaxis. SYSTEM REVIEW: Unable to obtain from the patient. SOCIAL HISTORY: Lives at [facility]. PHYSICAL EXAMINATION: VITAL SIGNS: Reviewed. Pulse ox is 100%. HEENT: Sclerae nonicteric. NECK: Supple. LUNGS: Clear. CARDIOVASCULAR: With a regular rhythm. ABDOMEN: Soft, nontender. EXTREMITIES: With 1+ pitting edema bilaterally. LABORATORY DATA: Reviewed. ABG as discussed in my history of present illness. BUN 26, creatinine 1.2. Troponin normal. INR is 1.2. White cell count 11.7 from 17,000; hemoglobin 8.6; and platelets are 209. IMPRESSION: 1. Acute respiratory failure secondary to encephalopathy with questionable seizure. The patient was intubated for airway protection. 2. Metabolic encephalopathy. 3. No definite infiltrate seen on the chest x-ray. 4. Adequate gas exchange on ABGs. 5. History of schizophrenia. 6. History of alcoholism. RECOMMENDATIONS: 1. I have discussed with RN and RT. We will stop sedation, assess his mental status. 2. Once the patient is fully awake, we will place him on a spontaneous breathing trial, and likely extubation in the next 24 hours or even less. 3. Continue antibiotics per Infectious Disease. 4. Lovenox for DVT prophylaxis. 5. Further recommendations to follow. Total critical care time 33 minutes including review of the chart, imaging studies and decision making and making a plan. KELLY DR: Madie TID: [id number]
--- NOTE | 2020-11-14 10:05 | CONS ---
DATE OF CONSULTATION: 11/14/2020 INFECTIOUS DISEASE CONSULTATION REFERRING PHYSICIAN: Dr. Rollins. REASON FOR CONSULTATION: Sepsis. 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 History obtained from chart and medical staff. The patient is a resident at [facility] from where he was brought in with complaints of altered mental status from his baseline. The patient has had multiple admissions in the past for the same. Upon arrival, he was febrile, white count was 17,000, lactate of 2.2, creatinine of 1.3. UA showed large leukocyte esterase, wbc too numerous to count. Blood culture 1 out of 2 bottles is positive for GPC in chains. The patient's CT of the head showed no acute intracranial abnormality. Chest x-ray showed endotracheal tube and nasogastric tube in expected position, no acute pulmonary finding. Abdomen and pelvic CT showed large amount of stool throughout the colon and within the rectal vault consistent with constipation. There is superimposed rectal wall thickening and perirectal stranding and trace fluid, likely due to impaction. Terrazas catheter balloon and tip within the penile urethra. Mild right hydronephrosis and right greater than left urothelial thickening and surrounding stranding suggesting ascending urinary tract infection. There is also bladder wall thickening due to cystitis. Trace pleural effusion and bilateral posterior dependent atelectasis. The patient also has decubitus wound for which there is wound VAC in place per staff from the senior care. The patient is admitted to ICU on cefepime, Flagyl; off Levophed this morning. Currently, he is lying in bed, comfortable, intubated. No fevers, chills, nausea, or vomiting reported. He does have some penile swelling. PAST MEDICAL HISTORY: Schizophrenia, alcohol dependence, anxiety, pulmonary hypertension, constipation, TIA, sacral decubitus ulcers, history of complicated UTI, history of encephalopathy in the past, DENIS on CKD. REVIEW OF SYSTEMS: Unable to obtain. ALLERGIES: No known drug allergies. SOCIAL HISTORY: Nonsmoker, previously heavy alcohol abuse. Currently resides in an [facility] facility. FAMILY HISTORY: Noncontributory. CURRENT MEDICATIONS: Flagyl and cefepime. Levophed has been discontinued. Other medications reviewed in medication list. PHYSICAL EXAMINATION: VITAL SIGNS: Temperature 98.1, T-max 100.6, pulse 105, respiratory rate 18, blood pressure 138/80, oxygen saturation 100% on FiO2 of 40, PEEP of 5. CONSTITUTIONAL: The patient is lying in bed, in no acute distress, intubated. HEENT: Normocephalic, atraumatic. OG tube in place. Oropharynx clear. Appears to have poor dentition. NECK: Supple. Left EJ present. LUNGS: Decreased breath sounds at the bases. HEART: S1, S2, without murmurs. ABDOMEN: Mildly distended. No guarding. Bowel sounds present. EXTREMITIES: No edema. DERM: Warm and dry. No generalized rash. NEUROLOGIC: Intubated. BACK: Reveals sacral wound, there is a thin layer of tissue over the bone, foul smelling drainage with wound VAC in place. LABORATORY DATA: WBC 11.7, was 17; hemoglobin 8.6; hematocrit 27.1, platelets 209. Sodium 144, potassium 3.4, chloride 106, bicarbonate 27, BUN 26, creatinine 1.2, glucose 110. Lactate was 2.2, now is 1.6. UA: Large leukocyte esterase. Micro: Blood culture 11/13/2020: 1 out of 2 bottles positive for GPC in chain. IMAGIN. CT head as above. 2. CT abdomen and pelvis as above. IMPRESSION: 1. Fever. 2. Leukocytosis. 3. Sepsis. 4. GPC bacteremia, 1 out of 4 bottles present on admission, 11/13/2020. 5. Complicated urinary tract infection with hydronephrosis, right greater than left. 6. Encephalopathy appears metabolic. 7. Acute respiratory failure, status post intubation. 8. Decubitus ulcer with wound VAC in place. 9. History of ETOH dependence. 10.History of schizophrenia 11.Anxiety RECOMMENDATIONS: Continue cefepime and Flagyl. Start daptomycin. Follow up labs and cultures. Change Terrazas if not done already. Swab culture obtained from the wound. Wound VAC as directed. Offload. Continue supportive care. CCG time 35 minutes. Thank you for allowing me to participate in this patient's care. If you have any questions, do not hesitate to contact me. CECIL/DIONNA DR: CECIL/rayray TID: [id number] MTDD
[2020-11-14] MEDS: DAPTOmycin (GENERIC) IVPB 480 MG in IV NORMAL SALINE 50ML 50 ML IV SCH (10:13)
[2020-11-14] MEDS ORDERED: VALP500S PO (10:56)
[2020-11-14] MEDS ORDERED: QUET400T4 PO (10:56)
--- NOTE | 2020-11-14 11:26 | PDOC ---
[employer] PROGRESS NOTE Date of Service DOS: DATE: 11/14/20 TIME: 11:24 Chief Complaint Chief Complaint Altered mental status History of Present Illness History of Present Illness 11/14/2020 Patient seen and examined Patient on ventilation and unconscious Stopped versaid, currently vent weaning Witnessed tremors of arms, possible seizure activity. Informed nursing and discussed starting ativan Current ventilation settings: A/C/16/500ml/40% with 5 PEEP HPI 11/13/2020 History obtained from ED physician Patient is a 64-year-old male with past medical history of alcohol dependence, anxiety, schizophrenia, hypertension who resides at [facility] who presents to the ED due to concern for altered mental status. According to the [facility] patient was unresponsive and was altered from his baseline. In the ED patient required to be intubated due to possible seizure and for airway protection. No reported prior illness, changes or injury according to [facility] report. Vitals/I&O Vitals/I&O: Vital Signs Date Time Temp Pulse Resp B/P (MAP) Pulse Ox O2 Delivery O2 Flow Rate FiO2 11/14/20 10:00 98 16 124/73 (90) 100 Ventilator 11/14/20 08:00 98.1 98.1 11/13/20 12:24 15.0 I & O 11/13/20 11/13/20 11/14/20 15:00 23:00 07:00 Intake Total 2050 ml 1702 ml Output Total 350 ml 445 ml Balance 2050 ml -350 ml 1257 ml Physical Exam General: mild distress (upper extremity tremor activity), Other (Unconscious with ventilator ) Heart: Regular rate Lungs: Clear Abdomen: Soft Extremities: No clubbing, Other (ichthyosis) Skin: No breakdown Labs Labs: Laboratory Tests Test 11/13/20 11:53 11/13/20 12:07 11/13/20 13:07 11/13/20 13:10 White Blood Count 17.0 x10^3/uL (4.0-11.0) Red Blood Count 3.49 x10^6/uL (4.30-5.70) Hemoglobin 9.4 g/dL (13.0-17.5) Hematocrit 28.8 % (39.0-53.0) Mean Corpuscular Volume 83 fL (79-100) Mean Corpuscular Hemoglobin 27 pg (25-35) Mean Corpuscular Hemoglobin Concent 33 g/dL (31-37) Red Cell Distribution Width 16.6 % (11.5-14.5) Platelet Count 273 x10^3/uL (140-400) Neutrophils (%) (Auto) 91 % (31-73) Lymphocytes (%) (Auto) 3 % (24-48) Monocytes (%) (Auto) 6 % (0-9) Eosinophils (%) (Auto) 0 % (0-3) Basophils (%) (Auto) 0 % (0-3) Neutrophils # (Auto) 15.6 x10^3/uL (1.8-7.7) Lymphocytes # (Auto) 0.5 x10^3/uL (1.0-4.8) Monocytes # (Auto) 0.9 x10^3/uL (0.0-1.1) Eosinophils # (Auto) 0.0 x10^3/uL (0.0-0.7) Basophils # (Auto) 0.0 x10^3/uL (0.0-0.2) Segmented Neutrophils % 89 % (35-66) Band Neutrophils % 3 % (0-9) Lymphocytes % 3 % (24-48) Monocytes % 5 % (0-10) Platelet Estimate Adequate (ADEQUATE) Prothrombin Time 14.7 SEC (11.7-14.0) Prothromb Time International Ratio 1.2 (0.8-1.1) Activated Partial Thromboplast Time 31 SEC (24-38) Glucose (Fingerstick) 127 mg/dL (70-99) Sodium Level 142 mmol/L (136-145) Potassium Level 3.7 mmol/L (3.5-5.1) Chloride Level 103 mmol/L (98-107) Carbon Dioxide Level 29 mmol/L (21-32) Anion Gap 10 (6-14) Blood Urea Nitrogen 25 mg/dL (8-26) Creatinine 1.3 mg/dL (0.7-1.3) Estimated GFR (Cockcroft-Gault) 67.2 Glucose Level 162 mg/dL (70-99) Lactic Acid Level 2.2 mmol/L (0.4-2.0) Calcium Level 8.1 mg/dL (8.5-10.1) Troponin I Quantitative < 0.017 ng/mL (0.000-0.055) O2 Saturation 98 % (92-99) Arterial Blood pH 7.53 (7.35-7.45) Arterial Blood pCO2 at Patient Temp 35 mmHg (35-46) Arterial Blood pO2 at Patient Temp 127 mmHg (65-108) Arterial Blood HCO3 29 mmol/L (21-28) Arterial Blood Base Excess 6 mmol/L (-3-3) FiO2 40% vent Test 11/13/20 16:00 11/13/20 18:54 11/14/20 07:25 11/14/20 07:45 Urine Collection Type Unknown Urine Color Nadine Urine Clarity Turbid Urine pH 7.0 (<5.0-8.0) Urine Specific [place] >=1.030 (1.000-1.030) Urine Protein 100 mg/dL (NEG-TRACE) Urine Glucose (UA) Negative mg/dL (NEG) Urine Ketones (Stick) Trace mg/dL (NEG) Urine Blood Large (NEG) Urine Nitrite Negative (NEG) Urine Bilirubin Negative (NEG) Urine Urobilinogen Dipstick 1.0 mg/dL (0.2 mg/dL) Urine Leukocyte Esterase Large (NEG) Urine RBC Tntc /HPF (0-2) Urine WBC Tntc /HPF (0-4) Urine Squamous Epithelial Cells Few /LPF Urine Bacteria Moderate /HPF (0-FEW) Urine Hyaline Casts Few /HPF Urine Yeast Present /HPF Lactic Acid Level 1.6 mmol/L (0.4-2.0) White Blood Count 11.7 x10^3/uL (4.0-11.0) Red Blood Count 3.15 x10^6/uL (4.30-5.70) Hemoglobin 8.6 g/dL (13.0-17.5) Hematocrit 27.1 % (39.0-53.0) Mean Corpuscular Volume 86 fL (79-100) Mean Corpuscular Hemoglobin 28 pg (25-35) Mean Corpuscular Hemoglobin Concent 32 g/dL (31-37) Red Cell Distribution Width 16.8 % (11.5-14.5) Platelet Count 209 x10^3/uL (140-400) Neutrophils (%) (Auto) 89 % (31-73) Lymphocytes (%) (Auto) 3 % (24-48) Monocytes (%) (Auto) 8 % (0-9) Eosinophils (%) (Auto) 0 % (0-3) Basophils (%) (Auto) 0 % (0-3) Neutrophils # (Auto) 10.4 x10^3/uL (1.8-7.7) Lymphocytes # (Auto) 0.4 x10^3/uL (1.0-4.8) Monocytes # (Auto) 0.9 x10^3/uL (0.0-1.1) Eosinophils # (Auto) 0.0 x10^3/uL (0.0-0.7) Basophils # (Auto) 0.0 x10^3/uL (0.0-0.2) Sodium Level 144 mmol/L (136-145) Potassium Level 3.4 mmol/L (3.5-5.1) Chloride Level 106 mmol/L (98-107) Carbon Dioxide Level 27 mmol/L (21-32) Anion Gap 11 (6-14) Blood Urea Nitrogen 26 mg/dL (8-26) Creatinine 1.2 mg/dL (0.7-1.3) Estimated GFR (Cockcroft-Gault) 73.8 Glucose Level 110 mg/dL (70-99) Calcium Level 8.0 mg/dL (8.5-10.1) Phosphorus Level 3.0 mg/dL (2.6-4.7) Magnesium Level 2.0 mg/dL (1.8-2.4) O2 Saturation 99 % (92-99) Arterial Blood pH 7.49 (7.35-7.45) Arterial Blood pCO2 at Patient Temp 36 mmHg (35-46) Arterial Blood pO2 at Patient Temp 138 mmHg (65-108) Arterial Blood HCO3 27 mmol/L (21-28) Arterial Blood Base Excess 3 mmol/L (-3-3) FiO2 40%+5 Assessment and Plan Assessmemt and Plan Problems Medical Problems: (1) Acute respiratory failure Status: Acute (2) Urinary tract infection Status: Acute Assessment Acute hypoxic respiratory failure status post intubation Acute metabolic encephalopathy Severe constipation Mild right hydronephrosis Acute cystitis Concern for seizure activity History of schizophrenia History of alcohol dependence History of hypertension Plan ICU monitoring OG to suction Vent weaning Mits for patient safety [place] to BSD Off pressers As needed Versed Started on Ativan 2mg q2 hours prn for seizure activity DVT prophylaxis home meds Full code Appreciate subspecialist input Prognosis guarded CC time 34-minute Comment Review of Relevant I have reviewed the following items any (where applicable) has been applied. Medications: Current Medications Medications (Trade) Dose Ordered Sig/Jeffrey Route PRN Reason Start Time Stop Time Status Last Admin Dose Admin Lorazepam (Ativan Inj) 2 mg 1X ONCE IVP 11/13/20 12:15 11/13/20 12:16 DC 11/13/20 12:07 Piperacillin Sod/ Tazobactam Sod 3.375 gm/Sodium Chloride 50 ml @ 100 mls/hr 1X ONCE IV 11/13/20 12:30 11/13/20 12:59 DC 11/13/20 13:12 Vancomycin HCl 1.5 gm/Sodium Chloride 500 ml @ 250 mls/hr 1X ONCE IV 11/13/20 13:00 11/13/20 14:59 DC 11/13/20 15:46 Etomidate (Amidate) 20 mg 1X ONCE IV 11/13/20 12:30 11/13/20 12:31 DC 11/13/20 12:21 Succinylcholine Chloride (Anectine) 100 mg 1X ONCE IV 11/13/20 12:30 11/13/20 12:31 DC 11/13/20 12:21 Ketorolac Tromethamine (Toradol 15mg Vial) 15 mg 1X ONCE IVP 11/13/20 12:30 11/13/20 12:44 DC 11/13/20 13:11 Propofol 100 ml @ 2.55 mls/hr CONT PRN IV PER PROTOCOL 11/13/20 12:30 11/13/20 12:35 Iohexol (Omnipaque 300 Mg/ml) 75 ml 1X ONCE IV 11/13/20 13:45 11/13/20 13:46 DC 11/13/20 13:45 Norepinephrine Bitartrate 8 mg/ Dextrose 258 ml @ 16.448 mls/ hr 1X ONCE IV 11/13/20 13:45 11/14/20 05:26 DC 11/13/20 13:48 Midazolam HCl 50 mg/Sodium Chloride 50 ml @ 0 mls/hr 1X ONCE IV 11/13/20 13:45 11/13/20 13:46 DC 11/13/20 13:49 Sodium Chloride 1,000 ml @ 100 mls/hr Q10H IV 11/13/20 13:45 11/14/20 03:53 Enoxaparin Sodium (Lovenox 40mg Syringe) 40 mg Q24H SQ 11/13/20 14:00 11/13/20 14:00 Pantoprazole Sodium (PROTONIX VIAL for IV PUSH) 40 mg DAILYAC IVP 11/14/20 07:30 11/14/20 07:29 Sodium Chloride 1,000 ml @ 1,000 mls/hr 1X ONCE IV 11/13/20 14:00 11/13/20 14:59 DC 11/13/20 12:30 Sodium Chloride 1,000 ml @ 1,000 mls/hr 1X ONCE IV 11/13/20 14:00 11/13/20 14:59 DC 11/13/20 14:00 Metronidazole 100 ml @ 100 mls/hr Q12HR IV 11/13/20 19:00 11/14/20 07:29 Cefepime HCl (Maxipime) 2 gm Q24H IVP 11/13/20 17:00 11/13/20 18:05 Daptomycin 480 mg/ Sodium Chloride 50 ml @ 100 mls/hr Q24H IV 11/14/20 10:00 11/14/20 10:13 Justifications for Admission Other Justification Septic shock, urosepsis, acute renal failure CATHY HERNANDEZ III DO Nov 14, 2020 11:26
[2020-11-14] MEDS ORDERED: POLYETHYLENE GLYCOL 3350 17 GM PACKET. PO PRN (12:00)
[2020-11-14] MEDS ORDERED: ACETAMINOPHEN 325 MG TABLET. PO PRN (12:00)
[2020-11-14] MEDS: PROPOFOL 100 ML IV PRN ×2 (12:14→18:18)
[2020-11-14] MEDS: BENZTROPINE MESYLATE 1 MG TABLET. PO SCH ×2 (12:17→20:59)
[2020-11-14] MEDS: VALPROIC ACID 250 MG CAPSULE. PO SCH ×2 (12:17→20:58)
[2020-11-14] MEDS: HALOPERIDOL 2 MG TABLET. PO SCH ×2 (12:17→20:59)
[2020-11-14] MEDS: hydroCHLOROthiazide 12.5 MG CAPSULE PO SCH (12:17)
--- NOTE | 2020-11-14 12:51 | PDOC2 ---
NEUROLOGY CONSULT Date of Service DOS: DATE: 11/14/20 TIME: 12:39 Reason for Consult Reason for Consult: Tremors Referring Physician Referring Physician: Dr. Gray Source Source: Chart review History of Present Illness History of Present Illness The patient is a 64-year-old right-handed male brought in from [facility] with altered mental status. There is a question of left facial droop. In the emergency department he was obtunded, having tremor activity, and was hypoxic. He was sedated and intubated. He did have some tremors this morning. Nurse describes whole-body shaking. There is no listed history of seizures or stroke. He is in [facility] mainly because of sacral decubitus wound. He has alcohol abuse and schizophrenia. Past Medical History Cardiovascular: HTN Psych: Anxiety, Addictions (Alcohol), Depression, Schizophrenia Dermatology: Other (Decubiti) Past Surgical History Past Surgical History: No pertinent history Family History Family History: No pertinent hx Social History Social History [facility] resident, used to abuse alcohol Current Medications Current Medications Current Medications Sodium Chloride 50 ml @ 50 mls/hr 1X ONCE IV ; Start 11/13/20 at 12:15; Stop 11/13/20 at 13:14; Status DC Labetalol HCl (Normodyne Iv Push) 10 mg PRN Q10MIN PRN IVP HYPERTENSION; Start 11/13/20 at 12:15 Nicardipine HCl 50 mg/Sodium Chloride 250 ml @ 25 mls/hr CONT PRN PRN IV HYPERTENSION; Start 11/13/20 at 12:15 Lorazepam (Ativan Inj) 2 mg 1X ONCE IVP Last administered on 11/13/20at 12:07; Start 11/13/20 at 12:15; Stop 11/13/20 at 12:16; Status DC Lorazepam (Ativan Inj) 2 mg STK-MED ONCE .ROUTE ; Start 11/13/20 at 12:05; Stop 11/13/20 at 12:06; Status DC Propofol 100 ml @ As Directed STK-MED ONCE IV ; Start 11/13/20 at 12:26; Stop 11/13/20 at 12:27; Status DC Piperacillin Sod/ Tazobactam Sod 3.375 gm/Sodium Chloride 50 ml @ 100 mls/hr 1X ONCE IV Last administered on 11/13/20at 13:12; Start 11/13/20 at 12:30; Stop 11/13/20 at 12:59; Status DC Vancomycin HCl 1.5 gm/Sodium Chloride 500 ml @ 250 mls/hr 1X ONCE IV Last administered on 11/13/20at 15:46; Start 11/13/20 at 13:00; Stop 11/13/20 at 14:59; Status DC Etomidate (Amidate) 20 mg 1X ONCE IV Last administered on 11/13/20at 12:21; Start 11/13/20 at 12:30; Stop 11/13/20 at 12:31; Status DC Succinylcholine Chloride (Anectine) 100 mg 1X ONCE IV Last administered on 11/13/20at 12:21; Start 11/13/20 at 12:30; Stop 11/13/20 at 12:31; Status DC Ketorolac Tromethamine (Toradol 15mg Vial) 15 mg 1X ONCE IVP Last administered on 11/13/20at 13:11; Start 11/13/20 at 12:30; Stop 11/13/20 at 12:44; Status DC Propofol 100 ml @ 2.55 mls/hr CONT PRN IV PER PROTOCOL Last administered on 11/13/20at 12:35; Start 11/13/20 at 12:30; Stop 11/14/20 at 11:24; Status DC Iohexol (Omnipaque 300 Mg/ml) 75 ml 1X ONCE IV Last administered on 11/13/20at 13:45; Start 11/13/20 at 13:45; Stop 11/13/20 at 13:46; Status DC Norepinephrine Bitartrate 8 mg/ Dextrose 258 ml @ 16.448 mls/ hr 1X ONCE IV Last administered on 11/13/20at 13:48; Start 11/13/20 at 13:45; Stop 11/14/20 at 05:26; Status DC Midazolam HCl 50 mg/Sodium Chloride 50 ml @ 0 mls/hr 1X ONCE IV Last administered on 11/13/20at 13:49; Start 11/13/20 at 13:45; Stop 11/13/20 at 13:46; Status DC Sennosides (Senna) 17.2 mg PRN BID PRN PO CONSTIPATION, 2ND CHOICE; Start 11/13/20 at 13:45 Docusate Sodium (Colace) 100 mg PRN DAILY PRN PO HARD STOOLS; Start 11/13/20 at 13:45 Ondansetron HCl (Zofran) 4 mg PRN Q6HRS PRN IVP NAUSEA/VOMITING; Start 11/13/20 at 13:45 Dextrose (Dextrose 50%-Water Syringe) 12.5 gm PRN Q15MIN PRN IV SEE COMMENTS; Start 11/13/20 at 13:45 Sodium Chloride 1,000 ml @ 100 mls/hr Q10H IV Last administered on 11/14/20at 03:53; Start 11/13/20 at 13:45 Acetaminophen (Tylenol) 650 mg PRN Q4HRS PRN PO TEMP OVER 100.4F OR MILD PAIN; Start 11/13/20 at 13:45; Stop 11/14/20 at 12:04; Status DC Enoxaparin Sodium (Lovenox 40mg Syringe) 40 mg Q24H SQ Last administered on 11/13/20at 14:00; Start 11/13/20 at 14:00 Pantoprazole Sodium (PROTONIX VIAL for IV PUSH) 40 mg DAILYAC IVP Last administered on 11/14/20at 07:29; Start 11/14/20 at 07:30 Sodium Chloride 1,000 ml @ 1,000 mls/hr 1X ONCE IV Last administered on 11/13/20at 12:30; Start 11/13/20 at 14:00; Stop 11/13/20 at 14:59; Status DC Sodium Chloride 1,000 ml @ 1,000 mls/hr 1X ONCE IV Last administered on 11/13/20at 14:00; Start 11/13/20 at 14:00; Stop 11/13/20 at 14:59; Status DC Ondansetron HCl (Zofran) 4 mg PRN Q8HRS PRN IV NAUSEA/VOMITING; Start 11/13/20 at 15:15; Stop 11/14/20 at 08:06; Status DC Morphine Sulfate (Morphine Sulfate) 4 mg PRN Q2HR PRN IV PAIN; Start 11/13/20 at 15:15; Stop 11/14/20 at 15:14 Metronidazole 100 ml @ 100 mls/hr Q12HR IV Last administered on 11/14/20at 07:29; Start 11/13/20 at 19:00 Cefepime HCl (Maxipime) 2 gm Q24H IVP Last administered on 11/13/20at 18:05; Start 11/13/20 at 17:00 Midazolam HCl 100 ml @ 1 mls/hr CONT PRN IV SEE I/O RECORD; Start 11/13/20 at 19:30 Fentanyl Citrate 30 ml @ 0 mls/hr CONT PRN IV SEE PROTOCOL; Start 11/13/20 at 19:30 Daptomycin 480 mg/ Sodium Chloride 50 ml @ 100 mls/hr Q24H IV Last administered on 11/14/20at 10:13; Start 11/14/20 at 10:00 Propofol 100 ml @ 2.322 mls/ hr CONT PRN IV PER PROTOCOL Last administered on 11/14/20at 12:14; Start 11/14/20 at 11:30 Acetaminophen (Tylenol) 650 mg PRN Q4HRS PRN PO TEMP OVER 100.4F OR MILD PAIN; Start 11/14/20 at 12:00 Haloperidol (Haldol) 4 mg BID PO Last administered on 11/14/20at 12:17; Start 11/14/20 at 12:30 Polyethylene Glycol (miraLAX PACKET) 17 gm PRN DAILY PRN PO CONSTIPATION, 1ST CHOICE; Start 11/14/20 at 12:00 Benztropine Mesylate (Cogentin) 0.5 mg BID PO Last administered on 11/14/20at 12:17; Start 11/14/20 at 12:30 Hydrochlorothiazide (Microzide) 12.5 mg DAILY PO Last administered on 11/14/20at 12:17; Start 11/14/20 at 12:30 Quetiapine Fumarate (SEROquel) 400 mg QHS PO ; Start 11/14/20 at 21:00 Valproic Acid (Depakene) 500 mg BID PO Last administered on 11/14/20at 12:17; Start 11/14/20 at 12:30 Active Scripts Active Tylenol (Acetaminophen) 325 Mg Tablet 650 Mg PO PRN Q4HRS PRN 30 Days Reported Seroquel (Quetiapine Fumarate) 400 Mg Tablet 2 Tab PO QHS Valproic Acid (Valproate Sodium) 500 Mg/10 Ml Solution 500 Mg PO BID Lisinopril 20 Mg Tablet 1 Tab PO DAILY Hydrochlorothiazide Tablet (Hydrochlorothiazide) 12.5 Mg Tablet 12.5 Mg PO DAILY Haloperidol 2 Mg Tablet 2 Tab PO BID Benztropine Mesylate 0.5 Mg Tablet 1 Tab PO BID Miralax (Polyethylene Glycol 3350) 17 Gm Powd.pack 1 Packet PO PRN DAILY PRN 2 Days dissolve in water Allergies Allergies: Coded Allergies: No Known Drug Allergies (Unverified , 01/16/19) ROS Review of System Unobtainable Physical Exam Physical Examination General: Well-developed, well-nourished black male in no acute distress HEENT: Normocephalic andatraumatic. Temporal arteriespulsatile and nontender. Neck: Supple without bruit, no meningismus Musculoskeletal: Stability:see neurologic. Gait exam:see neurologic. Tone:see neurologic.Strength:see neurologic. Neurological: Mental Status:orientation, memory, attention span/concentration, language, fund of knowledge: Intubated and sedated cranial Nerves:Pupils equal and reactive to light, extraocular movements areintact,There is no facial asymmetry. VAll other cranial related problems are negative except as mentioned before.Reflexes:1+ and symmetric with silent plantar responses. Motor: Equal withdraw to pain in all 4 extremities. Coordination and gait:Not testable. Sensory:Not testable. Vitals VITALS Vital Signs Date Time Temp Pulse Resp B/P (MAP) Pulse Ox O2 Delivery O2 Flow Rate FiO2 11/14/20 12:00 98.4 118 26 131/67 (88) 92 Ventilator 98.4 11/13/20 12:24 15.0 Labs Labs Laboratory Tests Test 11/13/20 11:53 11/13/20 12:07 11/13/20 13:07 11/13/20 13:10 White Blood Count 17.0 x10^3/uL (4.0-11.0) Red Blood Count 3.49 x10^6/uL (4.30-5.70) Hemoglobin 9.4 g/dL (13.0-17.5) Hematocrit 28.8 % (39.0-53.0) Mean Corpuscular Volume 83 fL (79-100) Mean Corpuscular Hemoglobin 27 pg (25-35) Mean Corpuscular Hemoglobin Concent 33 g/dL (31-37) Red Cell Distribution Width 16.6 % (11.5-14.5) Platelet Count 273 x10^3/uL (140-400) Neutrophils (%) (Auto) 91 % (31-73) Lymphocytes (%) (Auto) 3 % (24-48) Monocytes (%) (Auto) 6 % (0-9) Eosinophils (%) (Auto) 0 % (0-3) Basophils (%) (Auto) 0 % (0-3) Neutrophils # (Auto) 15.6 x10^3/uL (1.8-7.7) Lymphocytes # (Auto) 0.5 x10^3/uL (1.0-4.8) Monocytes # (Auto) 0.9 x10^3/uL (0.0-1.1) Eosinophils # (Auto) 0.0 x10^3/uL (0.0-0.7) Basophils # (Auto) 0.0 x10^3/uL (0.0-0.2) Segmented Neutrophils % 89 % (35-66) Band Neutrophils % 3 % (0-9) Lymphocytes % 3 % (24-48) Monocytes % 5 % (0-10) Platelet Estimate Adequate (ADEQUATE) Prothrombin Time 14.7 SEC (11.7-14.0) Prothromb Time International Ratio 1.2 (0.8-1.1) Activated Partial Thromboplast Time 31 SEC (24-38) Glucose (Fingerstick) 127 mg/dL (70-99) Sodium Level 142 mmol/L (136-145) Potassium Level 3.7 mmol/L (3.5-5.1) Chloride Level 103 mmol/L (98-107) Carbon Dioxide Level 29 mmol/L (21-32) Anion Gap 10 (6-14) Blood Urea Nitrogen 25 mg/dL (8-26) Creatinine 1.3 mg/dL (0.7-1.3) Estimated GFR (Cockcroft-Gault) 67.2 Glucose Level 162 mg/dL (70-99) Lactic Acid Level 2.2 mmol/L (0.4-2.0) Calcium Level 8.1 mg/dL (8.5-10.1) Troponin I Quantitative < 0.017 ng/mL (0.000-0.055) O2 Saturation 98 % (92-99) Arterial Blood pH 7.53 (7.35-7.45) Arterial Blood pCO2 at Patient Temp 35 mmHg (35-46) Arterial Blood pO2 at Patient Temp 127 mmHg (65-108) Arterial Blood HCO3 29 mmol/L (21-28) Arterial Blood Base Excess 6 mmol/L (-3-3) FiO2 40% vent Test 11/13/20 16:00 11/13/20 18:54 11/14/20 07:25 11/14/20 07:45 Urine Collection Type Unknown Urine Color Nadine Urine Clarity Turbid Urine pH 7.0 (<5.0-8.0) Urine Specific Stanford >=1.030 (1.000-1.030) Urine Protein 100 mg/dL (NEG-TRACE) Urine Glucose (UA) Negative mg/dL (NEG) Urine Ketones (Stick) Trace mg/dL (NEG) Urine Blood Large (NEG) Urine Nitrite Negative (NEG) Urine Bilirubin Negative (NEG) Urine Urobilinogen Dipstick 1.0 mg/dL (0.2 mg/dL) Urine Leukocyte Esterase Large (NEG) Urine RBC Tntc /HPF (0-2) Urine WBC Tntc /HPF (0-4) Urine Squamous Epithelial Cells Few /LPF Urine Bacteria Moderate /HPF (0-FEW) Urine Hyaline Casts Few /HPF Urine Yeast Present /HPF Lactic Acid Level 1.6 mmol/L (0.4-2.0) White Blood Count 11.7 x10^3/uL (4.0-11.0) Red Blood Count 3.15 x10^6/uL (4.30-5.70) Hemoglobin 8.6 g/dL (13.0-17.5) Hematocrit 27.1 % (39.0-53.0) Mean Corpuscular Volume 86 fL (79-100) Mean Corpuscular Hemoglobin 28 pg (25-35) Mean Corpuscular Hemoglobin Concent 32 g/dL (31-37) Red Cell Distribution Width 16.8 % (11.5-14.5) Platelet Count 209 x10^3/uL (140-400) Neutrophils (%) (Auto) 89 % (31-73) Lymphocytes (%) (Auto) 3 % (24-48) Monocytes (%) (Auto) 8 % (0-9) Eosinophils (%) (Auto) 0 % (0-3) Basophils (%) (Auto) 0 % (0-3) Neutrophils # (Auto) 10.4 x10^3/uL (1.8-7.7) Lymphocytes # (Auto) 0.4 x10^3/uL (1.0-4.8) Monocytes # (Auto) 0.9 x10^3/uL (0.0-1.1) Eosinophils # (Auto) 0.0 x10^3/uL (0.0-0.7) Basophils # (Auto) 0.0 x10^3/uL (0.0-0.2) Sodium Level 144 mmol/L (136-145) Potassium Level 3.4 mmol/L (3.5-5.1) Chloride Level 106 mmol/L (98-107) Carbon Dioxide Level 27 mmol/L (21-32) Anion Gap 11 (6-14) Blood Urea Nitrogen 26 mg/dL (8-26) Creatinine 1.2 mg/dL (0.7-1.3) Estimated GFR (Cockcroft-Gault) 73.8 Glucose Level 110 mg/dL (70-99) Calcium Level 8.0 mg/dL (8.5-10.1) Phosphorus Level 3.0 mg/dL (2.6-4.7) Magnesium Level 2.0 mg/dL (1.8-2.4) O2 Saturation 99 % (92-99) Arterial Blood pH 7.49 (7.35-7.45) Arterial Blood pCO2 at Patient Temp 36 mmHg (35-46) Arterial Blood pO2 at Patient Temp 138 mmHg (65-108) Arterial Blood HCO3 27 mmol/L (21-28) Arterial Blood Base Excess 3 mmol/L (-3-3) FiO2 40%+5 Laboratory Tests Test 11/13/20 13:07 11/13/20 13:10 11/13/20 16:00 11/13/20 18:54 Sodium Level 142 mmol/L (136-145) Potassium Level 3.7 mmol/L (3.5-5.1) Chloride Level 103 mmol/L (98-107) Carbon Dioxide Level 29 mmol/L (21-32) Anion Gap 10 (6-14) Blood Urea Nitrogen 25 mg/dL (8-26) Creatinine 1.3 mg/dL (0.7-1.3) Estimated GFR (Cockcroft-Gault) 67.2 Glucose Level 162 mg/dL (70-99) Lactic Acid Level 2.2 mmol/L (0.4-2.0) 1.6 mmol/L (0.4-2.0) Calcium Level 8.1 mg/dL (8.5-10.1) Troponin I Quantitative < 0.017 ng/mL (0.000-0.055) O2 Saturation 98 % (92-99) Arterial Blood pH 7.53 (7.35-7.45) Arterial Blood pCO2 at Patient Temp 35 mmHg (35-46) Arterial Blood pO2 at Patient Temp 127 mmHg (65-108) Arterial Blood HCO3 29 mmol/L (21-28) Arterial Blood Base Excess 6 mmol/L (-3-3) FiO2 40% vent Urine Collection Type Unknown Urine Color Nadine Urine Clarity Turbid Urine pH 7.0 (<5.0-8.0) Urine Specific Stanford >=1.030 (1.000-1.030) Urine Protein 100 mg/dL (NEG-TRACE) Urine Glucose (UA) Negative mg/dL (NEG) Urine Ketones (Stick) Trace mg/dL (NEG) Urine Blood Large (NEG) Urine Nitrite Negative (NEG) Urine Bilirubin Negative (NEG) Urine Urobilinogen Dipstick 1.0 mg/dL (0.2 mg/dL) Urine Leukocyte Esterase Large (NEG) Urine RBC Tntc /HPF (0-2) Urine WBC Tntc /HPF (0-4) Urine Squamous Epithelial Cells Few /LPF Urine Bacteria Moderate /HPF (0-FEW) Urine Hyaline Casts Few /HPF Urine Yeast Present /HPF Test 11/14/20 07:25 11/14/20 07:45 White Blood Count 11.7 x10^3/uL (4.0-11.0) Red Blood Count 3.15 x10^6/uL (4.30-5.70) Hemoglobin 8.6 g/dL (13.0-17.5) Hematocrit 27.1 % (39.0-53.0) Mean Corpuscular Volume 86 fL (79-100) Mean Corpuscular Hemoglobin 28 pg (25-35) Mean Corpuscular Hemoglobin Concent 32 g/dL (31-37) Red Cell Distribution Width 16.8 % (11.5-14.5) Platelet Count 209 x10^3/uL (140-400) Neutrophils (%) (Auto) 89 % (31-73) Lymphocytes (%) (Auto) 3 % (24-48) Monocytes (%) (Auto) 8 % (0-9) Eosinophils (%) (Auto) 0 % (0-3) Basophils (%) (Auto) 0 % (0-3) Neutrophils # (Auto) 10.4 x10^3/uL (1.8-7.7) Lymphocytes # (Auto) 0.4 x10^3/uL (1.0-4.8) Monocytes # (Auto) 0.9 x10^3/uL (0.0-1.1) Eosinophils # (Auto) 0.0 x10^3/uL (0.0-0.7) Basophils # (Auto) 0.0 x10^3/uL (0.0-0.2) Sodium Level 144 mmol/L (136-145) Potassium Level 3.4 mmol/L (3.5-5.1) Chloride Level 106 mmol/L (98-107) Carbon Dioxide Level 27 mmol/L (21-32) Anion Gap 11 (6-14) Blood Urea Nitrogen 26 mg/dL (8-26) Creatinine 1.2 mg/dL (0.7-1.3) Estimated GFR (Cockcroft-Gault) 73.8 Glucose Level 110 mg/dL (70-99) Calcium Level 8.0 mg/dL (8.5-10.1) Phosphorus Level 3.0 mg/dL (2.6-4.7) Magnesium Level 2.0 mg/dL (1.8-2.4) O2 Saturation 99 % (92-99) Arterial Blood pH 7.49 (7.35-7.45) Arterial Blood pCO2 at Patient Temp 36 mmHg (35-46) Arterial Blood pO2 at Patient Temp 138 mmHg (65-108) Arterial Blood HCO3 27 mmol/L (21-28) Arterial Blood Base Excess 3 mmol/L (-3-3) FiO2 40%+[address] HEAD WITHOUT CONTRAST History: : altered mental status. PATIENT UNRESPONSIVE 12:33PM / Comparison: CT head without contrast September 01, 2020. Technique: Axial images are obtained of the head from the skull base through the vertex without IV contrast. Findings: No mass-effect, midline shift, extra-axial fluid collection, hemorrhage, or obvious acute infarction is identified. Basilar cisterns are patent. The ventricles and sulci are prominent, consistent with age-related cerebral atrophy. There is mild periventricular white matter hypoattenuation. This is a nonspecific finding but is commonly due to chronic small vessel ischemic disease. Old left basal ganglia lacunar infarct. Bone windows demonstrate no acute calvarial abnormality. Mild mucosal thickening left sphenoid sinus. The other visualized paranasal sinuses are clear. Mastoid air cells are well aerated. IMPRESSION: No acute intracranial abnormality. Assessment/Plan Assessment/Plan Impression: Tremor versus seizure activity Possible stroke symptoms, nonfocal exam now with exam of course limited by his sedation. History of alcoholism, schizophrenia, other psychiatric disease Fever, leukocytosis, sepsis, gram-positive cocci bacteremia, urinary tract infection with hydronephrosis, respiratory failure, decubitus ulcer with wound VAC Recommendations: He is already on Depakene for his schizophrenia, I will go ahead and add on levetiracetam Electroencephalogram tomorrow Will also consider brain MRI Overall status is very poor, prognosis is poor. Thank you for letting me help with the patient's care. GÓMEZ ROMERO MD Nov 14, 2020 12:51
[2020-11-14] MEDS: levETIRAcetam 500 MG in IV DEXTROSE 5% 100ML 100 ML IV SCH ×2 (13:01→20:58)
[2020-11-14] MEDS: ENOXAPARIN 40 MG/0.4 ML SYRINGE. SQ SCH (13:57)
[2020-11-14] MEDS: CEFEPIME HCL IV Push 2 GM VIAL. IVP SCH (16:34)
--- NOTE | 2020-11-14 16:52 | NUR ---
Wound/Ostomy Care Wound Type/Assessment: WOund care consult for coccyx wound. 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 Pt came in with home vac in place. Vac replaced with hospital wound vac. Pt has DTI to left heel margot dry scaly callous covering. Treatment Recommendations/Plan: Cleansed, pictured and measured wounds. Applied NPWT veraflo at 125 mmHg with 26ml NS wash for 3 ml every 3 hours. WC will change every 2-3 days. Foam applied to heel for protection Education provided: Pt intubated. WC POC discussed with RN Offloading surface/device: ICU bed, pillows Recommended Referrals/Tests: na Discharge Recommendations for dressings: continue as above noted
[2020-11-14] MEDS: QUEtiapine 100 MG TABLET. PO SCH (20:58)
[2020-11-15] VITALS (23 sets, daily range): BP systolic 84–155; BP diastolic 52–86
[2020-11-15] MEDS: hydroCHLOROthiazide 12.5 MG CAPSULE PO SCH (07:21)
[2020-11-15] MEDS: VALPROIC ACID 250 MG CAPSULE. PO SCH ×2 (07:21→20:28)
[2020-11-15] MEDS: PANTOPRAZOLE IV PUSH 40 MG VIAL. IVP SCH (07:21)
[2020-11-15] MEDS: HALOPERIDOL 2 MG TABLET. PO SCH ×2 (07:22→20:28)
[2020-11-15] MEDS: IV NORMAL SALINE 1000ML BAG 1,000 ML IV SCH ×2 (07:22→17:35)
[2020-11-15] MEDS: BENZTROPINE MESYLATE 1 MG TABLET. PO SCH ×2 (07:22→20:28)
[2020-11-15 07:54] LABS: BASE EXCESS ABG 2 mmol/L (-3-3); HCO3 ABG 25 mmol/L (21-28); PCO2 ABG 34 mmHg (35-46); PO2 ABG 166 mmHg (65-108); SAT O2 ABG 99 % (92-99)
[2020-11-15] MEDS: PROPOFOL 100 ML IV PRN ×3 (08:11→20:26)
[2020-11-15 08:21] LABS: FIO2 ABG 40
--- NOTE | 2020-11-15 08:43 | PDOC ---
PROGRESS NOTES Date of Service DATE: 11/15/20 TIME: 08:40 Assessment Problems Medical Problems: (1) Acute respiratory failure Status: Acute (2) Urinary tract infection Status: Acute EEG, 11/15, shows intermittent bilateral periodic lateralizing epileptiform discharges. I suspect that he had a respiratory event and was found hypoxic causing anoxic encephalopathy. Possible stroke symptoms earlier, nonfocal exam now with exam of course limited by his sedation. History of alcoholism, schizophrenia, other psychiatric disease Fever, leukocytosis, sepsis, gram-positive cocci bacteremia, urinary tract infection with hydronephrosis, respiratory failure, decubitus ulcer with wound VAC Plan Depakene and levetiracetam I discussed the poor prognosis with the patient's [id number]. He is actually been declining for the last 2 years. I asked them to consider switching to palliative care and at least making him DO NOT RESUSCITATE. I doubt that aggressive treatment of the seizures will be helpful. Hold on brain MRI Overall status is very poor, prognosis is poor. Subjective None Objective Vital Signs Date Time Temp Pulse Resp B/P (MAP) Pulse Ox O2 Delivery O2 Flow Rate FiO2 11/15/20 08:00 98.2 87 22 118/73 (88) 95 Ventilator 98.2 Intake and Output 11/15/20 07:00 Intake Total 1129 ml Output Total 1270 ml Balance -141 ml Intake IV Total 1129 ml Output Urine Total 1270 ml # Bowel Movements 1 PHYSICAL EXAM On ventilator, sedation started again, has rhythmic blinking and tongue thrusting PERRL. EOMI. CN: no focal findings. Muscle tone: normal. Muscle strength: No response to pain DTR: 1+ Plantar reflex: Silent Gait: not examined in bed. Sensory exam: Not cooperative Cerebellar: Not cooperative Review of Relevant I have reviewed the following items any (where applicable) has been applied. Labs Laboratory Tests Test 11/13/20 11:53 11/13/20 12:07 11/13/20 13:07 11/13/20 13:10 White Blood Count 17.0 x10^3/uL (4.0-11.0) Red Blood Count 3.49 x10^6/uL (4.30-5.70) Hemoglobin 9.4 g/dL (13.0-17.5) Hematocrit 28.8 % (39.0-53.0) Mean Corpuscular Volume 83 fL (79-100) Mean Corpuscular Hemoglobin 27 pg (25-35) Mean Corpuscular Hemoglobin Concent 33 g/dL (31-37) Red Cell Distribution Width 16.6 % (11.5-14.5) Platelet Count 273 x10^3/uL (140-400) Neutrophils (%) (Auto) 91 % (31-73) Lymphocytes (%) (Auto) 3 % (24-48) Monocytes (%) (Auto) 6 % (0-9) Eosinophils (%) (Auto) 0 % (0-3) Basophils (%) (Auto) 0 % (0-3) Neutrophils # (Auto) 15.6 x10^3/uL (1.8-7.7) Lymphocytes # (Auto) 0.5 x10^3/uL (1.0-4.8) Monocytes # (Auto) 0.9 x10^3/uL (0.0-1.1) Eosinophils # (Auto) 0.0 x10^3/uL (0.0-0.7) Basophils # (Auto) 0.0 x10^3/uL (0.0-0.2) Segmented Neutrophils % 89 % (35-66) Band Neutrophils % 3 % (0-9) Lymphocytes % 3 % (24-48) Monocytes % 5 % (0-10) Platelet Estimate Adequate (ADEQUATE) Prothrombin Time 14.7 SEC (11.7-14.0) Prothromb Time International Ratio 1.2 (0.8-1.1) Activated Partial Thromboplast Time 31 SEC (24-38) Glucose (Fingerstick) 127 mg/dL (70-99) Sodium Level 142 mmol/L (136-145) Potassium Level 3.7 mmol/L (3.5-5.1) Chloride Level 103 mmol/L (98-107) Carbon Dioxide Level 29 mmol/L (21-32) Anion Gap 10 (6-14) Blood Urea Nitrogen 25 mg/dL (8-26) Creatinine 1.3 mg/dL (0.7-1.3) Estimated GFR (Cockcroft-Gault) 67.2 Glucose Level 162 mg/dL (70-99) Lactic Acid Level 2.2 mmol/L (0.4-2.0) Calcium Level 8.1 mg/dL (8.5-10.1) Troponin I Quantitative < 0.017 ng/mL (0.000-0.055) O2 Saturation 98 % (92-99) Arterial Blood pH 7.53 (7.35-7.45) Arterial Blood pCO2 at Patient Temp 35 mmHg (35-46) Arterial Blood pO2 at Patient Temp 127 mmHg (65-108) Arterial Blood HCO3 29 mmol/L (21-28) Arterial Blood Base Excess 6 mmol/L (-3-3) FiO2 40% vent Test 11/13/20 16:00 11/13/20 18:54 11/14/20 07:25 11/14/20 07:45 Urine Collection Type Unknown Urine Color Nadine Urine Clarity Turbid Urine pH 7.0 (<5.0-8.0) Urine Specific [place] >=1.030 (1.000-1.030) Urine Protein 100 mg/dL (NEG-TRACE) Urine Glucose (UA) Negative mg/dL (NEG) Urine Ketones (Stick) Trace mg/dL (NEG) Urine Blood Large (NEG) Urine Nitrite Negative (NEG) Urine Bilirubin Negative (NEG) Urine Urobilinogen Dipstick 1.0 mg/dL (0.2 mg/dL) Urine Leukocyte Esterase Large (NEG) Urine RBC Tntc /HPF (0-2) Urine WBC Tntc /HPF (0-4) Urine Squamous Epithelial Cells Few /LPF Urine Bacteria Moderate /HPF (0-FEW) Urine Hyaline Casts Few /HPF Urine Yeast Present /HPF Lactic Acid Level 1.6 mmol/L (0.4-2.0) White Blood Count 11.7 x10^3/uL (4.0-11.0) Red Blood Count 3.15 x10^6/uL (4.30-5.70) Hemoglobin 8.6 g/dL (13.0-17.5) Hematocrit 27.1 % (39.0-53.0) Mean Corpuscular Volume 86 fL (79-100) Mean Corpuscular Hemoglobin 28 pg (25-35) Mean Corpuscular Hemoglobin Concent 32 g/dL (31-37) Red Cell Distribution Width 16.8 % (11.5-14.5) Platelet Count 209 x10^3/uL (140-400) Neutrophils (%) (Auto) 89 % (31-73) Lymphocytes (%) (Auto) 3 % (24-48) Monocytes (%) (Auto) 8 % (0-9) Eosinophils (%) (Auto) 0 % (0-3) Basophils (%) (Auto) 0 % (0-3) Neutrophils # (Auto) 10.4 x10^3/uL (1.8-7.7) Lymphocytes # (Auto) 0.4 x10^3/uL (1.0-4.8) Monocytes # (Auto) 0.9 x10^3/uL (0.0-1.1) Eosinophils # (Auto) 0.0 x10^3/uL (0.0-0.7) Basophils # (Auto) 0.0 x10^3/uL (0.0-0.2) Sodium Level 144 mmol/L (136-145) Potassium Level 3.4 mmol/L (3.5-5.1) Chloride Level 106 mmol/L (98-107) Carbon Dioxide Level 27 mmol/L (21-32) Anion Gap 11 (6-14) Blood Urea Nitrogen 26 mg/dL (8-26) Creatinine 1.2 mg/dL (0.7-1.3) Estimated GFR (Cockcroft-Gault) 73.8 Glucose Level 110 mg/dL (70-99) Calcium Level 8.0 mg/dL (8.5-10.1) Phosphorus Level 3.0 mg/dL (2.6-4.7) Magnesium Level 2.0 mg/dL (1.8-2.4) O2 Saturation 99 % (92-99) Arterial Blood pH 7.49 (7.35-7.45) Arterial Blood pCO2 at Patient Temp 36 mmHg (35-46) Arterial Blood pO2 at Patient Temp 138 mmHg (65-108) Arterial Blood HCO3 27 mmol/L (21-28) Arterial Blood Base Excess 3 mmol/L (-3-3) FiO2 40%+5 Test 11/15/20 07:40 O2 Saturation 99 % (92-99) Arterial Blood pH 7.49 (7.35-7.45) Arterial Blood pCO2 at Patient Temp 34 mmHg (35-46) Arterial Blood pO2 at Patient Temp 166 mmHg (65-108) Arterial Blood HCO3 25 mmol/L (21-28) Arterial Blood Base Excess 2 mmol/L (-3-3) FiO2 40 Laboratory Tests Test 11/15/20 07:40 O2 Saturation 99 % (92-99) Arterial Blood pH 7.49 (7.35-7.45) Arterial Blood pCO2 at Patient Temp 34 mmHg (35-46) Arterial Blood pO2 at Patient Temp 166 mmHg (65-108) Arterial Blood HCO3 25 mmol/L (21-28) Arterial Blood Base Excess 2 mmol/L (-3-3) FiO2 40 Microbiology 11/14/20 Gram Stain - Final, Resulted 11/14/20 Aerobic and Anaerobic Culture, Resulted Pending 11/13/20 Urine Culture - Final, Complete 11/13/20 Blood Culture - Final, Complete Medications Current Medications Sodium Chloride 50 ml @ 50 mls/hr 1X ONCE IV ; Start 11/13/20 at 12:15; Stop 11/13/20 at 13:14; Status DC Labetalol HCl (Normodyne Iv Push) 10 mg PRN Q10MIN PRN IVP HYPERTENSION; Start 11/13/20 at 12:15 Nicardipine HCl 50 mg/Sodium Chloride 250 ml @ 25 mls/hr CONT PRN PRN IV HYPERTENSION; Start 11/13/20 at 12:15 Lorazepam (Ativan Inj) 2 mg 1X ONCE IVP Last administered on 11/13/20at 12:07; Start 11/13/20 at 12:15; Stop 11/13/20 at 12:16; Status DC Lorazepam (Ativan Inj) 2 mg STK-MED ONCE .ROUTE ; Start 11/13/20 at 12:05; Stop 11/13/20 at 12:06; Status DC Propofol 100 ml @ As Directed STK-MED ONCE IV ; Start 11/13/20 at 12:26; Stop 11/13/20 at 12:27; Status DC Piperacillin Sod/ Tazobactam Sod 3.375 gm/Sodium Chloride 50 ml @ 100 mls/hr 1X ONCE IV Last administered on 11/13/20at 13:12; Start 11/13/20 at 12:30; Stop 11/13/20 at 12:59; Status DC Vancomycin HCl 1.5 gm/Sodium Chloride 500 ml @ 250 mls/hr 1X ONCE IV Last administered on 11/13/20at 15:46; Start 11/13/20 at 13:00; Stop 11/13/20 at 14:59; Status DC Etomidate (Amidate) 20 mg 1X ONCE IV Last administered on 11/13/20at 12:21; Start 11/13/20 at 12:30; Stop 11/13/20 at 12:31; Status DC Succinylcholine Chloride (Anectine) 100 mg 1X ONCE IV Last administered on 11/13/20at 12:21; Start 11/13/20 at 12:30; Stop 11/13/20 at 12:31; Status DC Ketorolac Tromethamine (Toradol 15mg Vial) 15 mg 1X ONCE IVP Last administered on 11/13/20at 13:11; Start 11/13/20 at 12:30; Stop 11/13/20 at 12:44; Status DC Propofol 100 ml @ 2.55 mls/hr CONT PRN IV PER PROTOCOL Last administered on 11/13/20at 12:35; Start 11/13/20 at 12:30; Stop 11/14/20 at 11:24; Status DC Iohexol (Omnipaque 300 Mg/ml) 75 ml 1X ONCE IV Last administered on 11/13/20at 13:45; Start 11/13/20 at 13:45; Stop 11/13/20 at 13:46; Status DC Norepinephrine Bitartrate 8 mg/ Dextrose 258 ml @ 16.448 mls/ hr 1X ONCE IV Last administered on 11/13/20at 13:48; Start 11/13/20 at 13:45; Stop 11/14/20 at 05:26; Status DC Midazolam HCl 50 mg/Sodium Chloride 50 ml @ 0 mls/hr 1X ONCE IV Last ad ministered on 11/13/20at 13:49; Start 11/13/20 at 13:45; Stop 11/13/20 at 13:46; Status DC Sennosides (Senna) 17.2 mg PRN BID PRN PO CONSTIPATION, 2ND CHOICE; Start 11/13/20 at 13:45 Docusate Sodium (Colace) 100 mg PRN DAILY PRN PO HARD STOOLS; Start 11/13/20 at 13:45 Ondansetron HCl (Zofran) 4 mg PRN Q6HRS PRN IVP NAUSEA/VOMITING; Start 11/13/20 at 13:45 Dextrose (Dextrose 50%-Water Syringe) 12.5 gm PRN Q15MIN PRN IV SEE COMMENTS; Start 11/13/20 at 13:45 Sodium Chloride 1,000 ml @ 100 mls/hr Q10H IV Last administered on 11/14/20at 16:35; Start 11/13/20 at 13:45 Acetaminophen (Tylenol) 650 mg PRN Q4HRS PRN PO TEMP OVER 100.4F OR MILD PAIN; Start 11/13/20 at 13:45; Stop 11/14/20 at 12:04; Status DC Enoxaparin Sodium (Lovenox 40mg Syringe) 40 mg Q24H SQ Last administered on 11/14/20at 13:57; Start 11/13/20 at 14:00 Pantoprazole Sodium (PROTONIX VIAL for IV PUSH) 40 mg DAILYAC IVP Last administered on 11/15/20at 07:21; Start 11/14/20 at 07:30 Sodium Chloride 1,000 ml @ 1,000 mls/hr 1X ONCE IV Last administered on 11/13/20at 12:30; Start 11/13/20 at 14:00; Stop 11/13/20 at 14:59; Status DC Sodium Chloride 1,000 ml @ 1,000 mls/hr 1X ONCE IV Last administered on 11/13/20at 14:00; Start 11/13/20 at 14:00; Stop 11/13/20 at 14:59; Status DC Ondansetron HCl (Zofran) 4 mg PRN Q8HRS PRN IV NAUSEA/VOMITING; Start 11/13/20 at 15:15; Stop 11/14/20 at 08:06; Status DC Morphine Sulfate (Morphine Sulfate) 4 mg PRN Q2HR PRN IV PAIN; Start 11/13/20 at 15:15; Stop 11/14/20 at 15:14; Status DC Metronidazole 100 ml @ 100 mls/hr Q12HR IV Last administered on 11/15/20at 07:22; Start 11/13/20 at 19:00 Cefepime HCl (Maxipime) 2 gm Q24H IVP Last administered on 11/14/20at 16:34; Start 11/13/20 at 17:00 Midazolam HCl 100 ml @ 1 mls/hr CONT PRN IV SEE I/O RECORD; Start 11/13/20 at 19:30 Fentanyl Citrate 30 ml @ 0 mls/hr CONT PRN IV SEE PROTOCOL; Start 11/13/20 at 19:30 Daptomycin 480 mg/ Sodium Chloride 50 ml @ 100 mls/hr Q24H IV Last administered on 11/14/20at 10:13; Start 11/14/20 at 10:00 Propofol 100 ml @ 2.322 mls/ hr CONT PRN IV PER PROTOCOL Last administered on 11/15/20at 08:11; Start 11/14/20 at 11:30 Acetaminophen (Tylenol) 650 mg PRN Q4HRS PRN PO TEMP OVER 100.4F OR MILD PAIN; Start 11/14/20 at 12:00 Haloperidol (Haldol) 4 mg BID PO Last administered on 11/15/20at 07:22; Start 11/14/20 at 12:30 Polyethylene Glycol (miraLAX PACKET) 17 gm PRN DAILY PRN PO CONSTIPATION, 1ST CHOICE; Start 11/14/20 at 12:00 Benztropine Mesylate (Cogentin) 0.5 mg BID PO Last administered on 11/15/20at 07:22; Start 11/14/20 at 12:30 Hydrochlorothiazide (Microzide) 12.5 mg DAILY PO Last administered on 11/15/20at 07:21; Start 11/14/20 at 12:30 Quetiapine Fumarate (SEROquel) 400 mg QHS PO Last administered on 11/14/20at 20:58; Start 11/14/20 at 21:00 Valproic Acid (Depakene) 500 mg BID PO Last administered on 11/15/20at 07:21; Start 11/14/20 at 12:30 Levetiracetam 500 mg/Dextrose 105 ml @ 420 mls/hr Q12HR IV Last administered on 11/14/20at 20:58; Start 11/14/20 at 12:45 Lorazepam (Ativan Inj) 2 mg PRN Q4HRS PRN IVP ANXIETY / AGITATION; Start 11/14/20 at 13:15 Active Scripts Active Tylenol (Acetaminophen) 325 Mg Tablet 650 Mg PO PRN Q4HRS PRN 30 Days Reported Seroquel (Quetiapine Fumarate) 400 Mg Tablet 2 Tab PO QHS Valproic Acid (Valproate Sodium) 500 Mg/10 Ml Solution 500 Mg PO BID Lisinopril 20 Mg Tablet 1 Tab PO DAILY Hydrochlorothiazide Tablet (Hydrochlorothiazide) 12.5 Mg Tablet 12.5 Mg PO DAILY Haloperidol 2 Mg Tablet 2 Tab PO BID Benztropine Mesylate 0.5 Mg Tablet 1 Tab PO BID Miralax (Polyethylene Glycol 3350) 17 Gm Powd.pack 1 Packet PO PRN DAILY PRN 2 Days dissolve in water Vitals/I & O Vital Sign - Last 24 Hours 11/14/20 11/14/20 11/14/20 11/14/20 09:00 09:00 10:00 11:00 Pulse 100 98 119 Resp 16 16 26 B/P (MAP) 124/79 (94) 124/73 (90) 134/80 (98) Pulse Ox 100 100 100 91 O2 Delivery Ventilator Ventilator Ventilator Ventilator 11/14/20 11/14/20 11/14/20 11/14/20 11:20 11:38 12:00 13:00 Temp 98.4 98.4 Pulse 118 93 Resp 26 16 B/P (MAP) 131/67 (88) 95/58 (70) Pulse Ox 100 92 100 O2 Delivery Ventilator Mechanical Ventilator Ventilator Ventilator 11/14/20 11/14/20 11/14/20 11/14/20 13:25 14:00 15:00 15:31 Pulse 94 100 Resp 18 16 B/P (MAP) 103/62 (76) 106/68 (81) Pulse Ox 100 100 100 O2 Delivery Ventilator Ventilator Ventilator Mechanical Ventilator 11/14/20 11/14/20 11/14/20 11/14/20 15:50 16:00 17:00 17:50 Temp 98.4 98.4 Pulse 83 82 Resp 16 16 B/P (MAP) 108/68 (81) 97/59 (72) Pulse Ox 100 100 100 100 O2 Delivery Ventilator Ventilator Ventilator Ventilator 11/14/20 11/14/20 11/14/20 11/14/20 18:00 19:00 20:00 20:00 Temp 98.7 98.7 Pulse 84 96 95 Resp 16 20 18 B/P (MAP) 105/66 (79) 119/77 (91) 117/75 (89) Pulse Ox 100 100 100 100 O2 Delivery Ventilator Ventilator Ventilator Ventilator 11/14/20 11/14/20 11/14/20 11/14/20 20:00 21:00 22:00 22:00 Pulse 95 101 Resp 18 20 B/P (MAP) 116/62 (80) 102/65 (77) Pulse Ox 100 100 100 O2 Delivery Mechanical Ventilator Ventilator Ventilator Ventilator 11/14/20 11/14/20 11/15/20 11/15/20 23:59 23:59 00:00 01:03 Temp 98.3 98.3 Pulse 105 88 Resp 16 18 B/P (MAP) 106/64 (78) 93/64 (74) Pulse Ox 100 100 100 O2 Delivery Ventilator Mechanical Ventilator Ventilator Ventilator 11/15/20 11/15/20 11/15/20 11/15/20 02:00 03:00 03:00 04:00 Pulse 83 82 Resp 20 19 B/P (MAP) 93/59 (70) 90/52 (65) Pulse Ox 99 100 99 O2 Delivery Ventilator Ventilator Ventilator Mechanical Ventilator 11/15/20 11/15/20 11/15/20 11/15/20 04:00 05:02 05:02 06:02 Temp 98.5 98.5 Pulse 84 73 97 Resp 19 18 22 B/P (MAP) 87/55 (66) 89/55 (66) 155/86 (109) Pulse Ox 99 100 99 95 O2 Delivery Ventilator Ventilator Ventilator Ventilator 11/15/20 11/15/20 11/15/20 11/15/20 07:00 07:41 07:50 08:00 Temp 98.2 98.2 Pulse 90 87 Resp 22 B/P (MAP) 137/82 (100) 118/73 (88) Pulse Ox 96 100 95 O2 Delivery Ventilator Mechanical Ventilator Ventilator Ventilator Intake and Output 11/14/20 11/14/20 11/15/20 15:00 23:00 07:00 Intake Total 50 ml 1079 ml Output Total 455 ml 350 ml 465 ml Balance -405 ml -350 ml 614 ml Justicifation of Admission Dx: Justifications for Admission: Justification of Admission Dx: N/A GÓMEZ ROMERO MD Nov 15, 2020 08:43
[2020-11-15] MEDS: levETIRAcetam 500 MG in IV DEXTROSE 5% 100ML 100 ML IV SCH ×2 (09:18→20:28)
--- NOTE | 2020-11-15 10:32 | PDOC ---
PULMONARY PROGRESS NOTES DATE: 11/15/20 TIME: 10:27 Subjective remains on vent support 40% PEEP of 5 no overnight concerns Vitals Vital Signs Date Time Temp Pulse Resp B/P (MAP) Pulse Ox O2 Delivery O2 Flow Rate FiO2 11/15/20 10:00 65 20 100/62 (75) 100 Ventilator 11/15/20 08:00 98.2 98.2 Comments intubated/sedated Lungs: Clear Extremities: No Edema Skin: Warm, Dry, Other (wound to coccyx ) Labs Laboratory Tests Test 11/13/20 11:53 11/13/20 12:07 11/13/20 13:07 11/13/20 13:10 White Blood Count 17.0 x10^3/uL (4.0-11.0) Red Blood Count 3.49 x10^6/uL (4.30-5.70) Hemoglobin 9.4 g/dL (13.0-17.5) Hematocrit 28.8 % (39.0-53.0) Mean Corpuscular Volume 83 fL (79-100) Mean Corpuscular Hemoglobin 27 pg (25-35) Mean Corpuscular Hemoglobin Concent 33 g/dL (31-37) Red Cell Distribution Width 16.6 % (11.5-14.5) Platelet Count 273 x10^3/uL (140-400) Neutrophils (%) (Auto) 91 % (31-73) Lymphocytes (%) (Auto) 3 % (24-48) Monocytes (%) (Auto) 6 % (0-9) Eosinophils (%) (Auto) 0 % (0-3) Basophils (%) (Auto) 0 % (0-3) Neutrophils # (Auto) 15.6 x10^3/uL (1.8-7.7) Lymphocytes # (Auto) 0.5 x10^3/uL (1.0-4.8) Monocytes # (Auto) 0.9 x10^3/uL (0.0-1.1) Eosinophils # (Auto) 0.0 x10^3/uL (0.0-0.7) Basophils # (Auto) 0.0 x10^3/uL (0.0-0.2) Segmented Neutrophils % 89 % (35-66) Band Neutrophils % 3 % (0-9) Lymphocytes % 3 % (24-48) Monocytes % 5 % (0-10) Platelet Estimate Adequate (ADEQUATE) Prothrombin Time 14.7 SEC (11.7-14.0) Prothromb Time International Ratio 1.2 (0.8-1.1) Activated Partial Thromboplast Time 31 SEC (24-38) Glucose (Fingerstick) 127 mg/dL (70-99) Sodium Level 142 mmol/L (136-145) Potassium Level 3.7 mmol/L (3.5-5.1) Chloride Level 103 mmol/L (98-107) Carbon Dioxide Level 29 mmol/L (21-32) Anion Gap 10 (6-14) Blood Urea Nitrogen 25 mg/dL (8-26) Creatinine 1.3 mg/dL (0.7-1.3) Estimated GFR (Cockcroft-Gault) 67.2 Glucose Level 162 mg/dL (70-99) Lactic Acid Level 2.2 mmol/L (0.4-2.0) Calcium Level 8.1 mg/dL (8.5-10.1) Troponin I Quantitative < 0.017 ng/mL (0.000-0.055) O2 Saturation 98 % (92-99) Arterial Blood pH 7.53 (7.35-7.45) Arterial Blood pCO2 at Patient Temp 35 mmHg (35-46) Arterial Blood pO2 at Patient Temp 127 mmHg (65-108) Arterial Blood HCO3 29 mmol/L (21-28) Arterial Blood Base Excess 6 mmol/L (-3-3) FiO2 40% vent Test 11/13/20 16:00 11/13/20 18:54 11/14/20 07:25 11/14/20 07:45 Urine Collection Type Unknown Urine Color Nadine Urine Clarity Turbid Urine pH 7.0 (<5.0-8.0) Urine Specific [place] >=1.030 (1.000-1.030) Urine Protein 100 mg/dL (NEG-TRACE) Urine Glucose (UA) Negative mg/dL (NEG) Urine Ketones (Stick) Trace mg/dL (NEG) Urine Blood Large (NEG) Urine Nitrite Negative (NEG) Urine Bilirubin Negative (NEG) Urine Urobilinogen Dipstick 1.0 mg/dL (0.2 mg/dL) Urine Leukocyte Esterase Large (NEG) Urine RBC Tntc /HPF (0-2) Urine WBC Tntc /HPF (0-4) Urine Squamous Epithelial Cells Few /LPF Urine Bacteria Moderate /HPF (0-FEW) Urine Hyaline Casts Few /HPF Urine Yeast Present /HPF Lactic Acid Level 1.6 mmol/L (0.4-2.0) White Blood Count 11.7 x10^3/uL (4.0-11.0) Red Blood Count 3.15 x10^6/uL (4.30-5.70) Hemoglobin 8.6 g/dL (13.0-17.5) Hematocrit 27.1 % (39.0-53.0) Mean Corpuscular Volume 86 fL (79-100) Mean Corpuscular Hemoglobin 28 pg (25-35) Mean Corpuscular Hemoglobin Concent 32 g/dL (31-37) Red Cell Distribution Width 16.8 % (11.5-14.5) Platelet Count 209 x10^3/uL (140-400) Neutrophils (%) (Auto) 89 % (31-73) Lymphocytes (%) (Auto) 3 % (24-48) Monocytes (%) (Auto) 8 % (0-9) Eosinophils (%) (Auto) 0 % (0-3) Basophils (%) (Auto) 0 % (0-3) Neutrophils # (Auto) 10.4 x10^3/uL (1.8-7.7) Lymphocytes # (Auto) 0.4 x10^3/uL (1.0-4.8) Monocytes # (Auto) 0.9 x10^3/uL (0.0-1.1) Eosinophils # (Auto) 0.0 x10^3/uL (0.0-0.7) Basophils # (Auto) 0.0 x10^3/uL (0.0-0.2) Sodium Level 144 mmol/L (136-145) Potassium Level 3.4 mmol/L (3.5-5.1) Chloride Level 106 mmol/L (98-107) Carbon Dioxide Level 27 mmol/L (21-32) Anion Gap 11 (6-14) Blood Urea Nitrogen 26 mg/dL (8-26) Creatinine 1.2 mg/dL (0.7-1.3) Estimated GFR (Cockcroft-Gault) 73.8 Glucose Level 110 mg/dL (70-99) Calcium Level 8.0 mg/dL (8.5-10.1) Phosphorus Level 3.0 mg/dL (2.6-4.7) Magnesium Level 2.0 mg/dL (1.8-2.4) O2 Saturation 99 % (92-99) Arterial Blood pH 7.49 (7.35-7.45) Arterial Blood pCO2 at Patient Temp 36 mmHg (35-46) Arterial Blood pO2 at Patient Temp 138 mmHg (65-108) Arterial Blood HCO3 27 mmol/L (21-28) Arterial Blood Base Excess 3 mmol/L (-3-3) FiO2 40%+5 Test 11/15/20 07:40 O2 Saturation 99 % (92-99) Arterial Blood pH 7.49 (7.35-7.45) Arterial Blood pCO2 at Patient Temp 34 mmHg (35-46) Arterial Blood pO2 at Patient Temp 166 mmHg (65-108) Arterial Blood HCO3 25 mmol/L (21-28) Arterial Blood Base Excess 2 mmol/L (-3-3) FiO2 40 Laboratory Tests Test 11/15/20 07:40 O2 Saturation 99 % (92-99) Arterial Blood pH 7.49 (7.35-7.45) Arterial Blood pCO2 at Patient Temp 34 mmHg (35-46) Arterial Blood pO2 at Patient Temp 166 mmHg (65-108) Arterial Blood HCO3 25 mmol/L (21-28) Arterial Blood Base Excess 2 mmol/L (-3-3) FiO2 40 Medications Active Scripts Medications Dose Route/Sig Max Daily Dose Days Date Category Dose Instructions Seroquel (Quetiapine Fumarate) 400 Mg Tablet 2 Tab PO QHS 11/14/20 Reported Valproic Acid (Valproate Sodium) 500 Mg/10 Ml Solution 500 Mg PO BID 11/14/20 Reported Lisinopril 20 Mg Tablet 1 Tab PO DAILY 09/25/20 Reported Hydrochlorothiazide Tablet (Hydrochlorothiazide) 12.5 Mg Tablet 12.5 Mg PO DAILY 09/25/20 Reported Haloperidol 2 Mg Tablet 2 Tab PO BID 09/25/20 Reported Benztropine Mesylate 0.5 Mg Tablet 1 Tab PO BID 09/25/20 Reported Miralax (Polyethylene Glycol 3350) 17 Gm Powd.pack 1 Packet PO PRN DAILY PRN 2 09/25/20 Reported dissolve in water Tylenol (Acetaminophen) 325 Mg Tablet 650 Mg PO PRN Q4HRS PRN 30 08/03/20 Rx Impression . IMPRESSION: 1. Acute respiratory failure secondary to encephalopathy 2/2 seizure. The patient was intubated for airway protection. 2. Metabolic encephalopathy. 3. No definite infiltrate seen on the chest x-ray. 4. Adequate gas exchange on ABGs. 5. History of schizophrenia. 6. History of alcoholism. 7. Enterococcus bacteremia Plan . Updated 11/15 Continue vent support currently on 16/500/5/40% ABG and CXR reviewed-- reduce rate to 14 and 30% Hold PS trial today 2/2 seizure activity per neuro Follow neurology recs-- EEG showed seizure activity continue AEM/Keppra seizure precautions Continue antibiotics per Infectious Disease-- follow cultures start TF for nutritional support DVT/GI PPX Enterococcus bacteremia/ Abx per ID critical care time 30 minutes including review of the chart, imaging studies and decision making and making a plan. 11/14 RECOMMENDATIONS: 1. I have discussed with RN and RT. We will stop sedation, assess his mental status. 2. Once the patient is fully awake, we will place him on a spontaneous breathing trial, and likely extubation in the next 24 hours or even less. 3. Continue antibiotics per Infectious Disease. 4. Lovenox for DVT prophylaxis. 5. Further recommendations to follow. Total critical care time 33 minutes including review of the chart, imaging studies and decision making and making a plan. HUGO ROSS MD Nov 15, 2020 10:32
--- NOTE | 2020-11-15 10:43 | PDOC ---
Infectious Disease Note Subjective: Subjective Patient intubated/sedated Blood cultures positive for yeast per nursing staff EEG reported seizure-like activity Vital Signs: Vital Signs Vital Signs Date Time Temp Pulse Resp B/P (MAP) Pulse Ox O2 Delivery O2 Flow Rate FiO2 11/15/20 10:00 65 20 100/62 (75) 100 Ventilator 11/15/20 08:00 98.2 98.2 Physical Exam: PHYSICAL EXAM CONSTITUTIONAL: intubated/sedated. HEENT: Normocephalic, atraumatic. OG tube in place. Oropharynx clear. Appears to have poor dentition. NECK: Supple. Left EJ present. LUNGS: Decreased breath sounds at the bases. HEART: S1, S2, without murmurs. ABDOMEN: Mildly distended. No guarding. Bowel sounds present. EXTREMITIES: No edema. DERM: Warm and dry. No generalized rash. NEUROLOGIC: Intubated. BACK: Reveals sacral wound, there is a thin layer of tissue over the bone, foul smelling drainage with wound VAC in place. Medications: Inpatient Meds: Medications reviewed. Labs: Lab Laboratory Tests Test 11/15/20 07:40 O2 Saturation 99 % (92-99) Arterial Blood pH 7.49 (7.35-7.45) Arterial Blood pCO2 at Patient Temp 34 mmHg (35-46) Arterial Blood pO2 at Patient Temp 166 mmHg (65-108) Arterial Blood HCO3 25 mmol/L (21-28) Arterial Blood Base Excess 2 mmol/L (-3-3) FiO2 40 Objective: Assessment: 1. Fever. 2. Leukocytosis. 3. Sepsis. 4. GPC bacteremia, 1 out of 4 bottles present on admission, 11/13/2020. Fungemia 1 out of 4 bottles present on admission 11/13/2020 5. Complicated urinary tract infection with hydronephrosis, right greater than left. Urine cultures contamination 6. Encephalopathy with seizure activity on EEG 7. Acute respiratory failure, status post intubation. 8. Decubitus ulcer with wound VAC in place. 9. History of ETOH dependence. 10.History of schizophrenia 11.History of Anxiety Plan: Plan of Care Start micafungin November 15 Change cefepime and Flagyl to Zosyn Continue daptomycin. November 14 Repeat blood cultures in a.m. Follow-up blood cultures from 11/15/2020 Follow up labs and cultures. Change Terrazas if not done already. Wound VAC as directed. Offload. Continue supportive care. Critically ill Prognosis poor Discussed with nursing staff TRINI KAT MD Nov 15, 2020 10:43
[2020-11-15] MEDS: DAPTOmycin (GENERIC) IVPB 480 MG in IV NORMAL SALINE 50ML 50 ML IV SCH (11:01)
[2020-11-15] MEDS: MICAFUNGIN 100 MG in IV DEXTROSE 5% 100ML 100 ML IV SCH (11:39)
--- NOTE | 2020-11-15 12:17 | PDOC ---
[employer] PROGRESS NOTE Date of Service DOS: DATE: 11/15/20 TIME: 12:10 Chief Complaint Chief Complaint Altered mental status History of Present Illness History of Present Illness 11/15/2020 Patient seen and examined Chart reviewed, spoke with nursing Currently sedated and vent weaning AC/500/14/30% on 5.0 PEEP 11/14/2020 Patient seen and examined Patient on ventilation and unconscious Stopped versaid, currently vent weaning Witnessed tremors of arms, possible seizure activity. Informed nursing and discussed starting ativan Current ventilation settings: A/C/16/500ml/40% with 5 PEEP HPI 11/13/2020 History obtained from ED physician Patient is a 64-year-old male with past medical history of alcohol dependence, anxiety, schizophrenia, hypertension who resides at [facility] who presents to the ED due to concern for altered mental status. According to the correction patient was unresponsive and was altered from his baseline. In the ED patient required to be intubated due to possible seizure and for airway protection. No reported prior illness, changes or injury according to correction report. Vitals/I&O Vitals/I&O: Vital Signs Date Time Temp Pulse Resp B/P (MAP) Pulse Ox O2 Delivery O2 Flow Rate FiO2 11/15/20 11:56 100 Ventilator 11/15/20 11:00 69 14 100/60 (73) 11/15/20 08:00 98.2 98.2 I & O 11/14/20 11/14/20 11/15/20 15:00 23:00 07:00 Intake Total 50 ml 1079 ml Output Total 455 ml 350 ml 465 ml Balance -405 ml -350 ml 614 ml Physical Exam Physical Exam: CONSTITUTIONAL: intubated/sedated. HEENT: Normocephalic, atraumatic. OG tube in place. Oropharynx clear. Appears to have poor dentition. NECK: Supple. Left EJ present. LUNGS: Decreased breath sounds at the bases. HEART: S1, S2, without murmurs. ABDOMEN: Mildly distended. No guarding. Bowel sounds present. EXTREMITIES: No edema. DERM: Warm and dry. No generalized rash. NEUROLOGIC: Intubated. BACK: Reveals sacral wound, there is a thin layer of tissue over the bone, foul smelling drainage with wound VAC in place. General: Other (Unconscious with ventilator ) Heart: Regular rate Lungs: Clear Abdomen: Soft Extremities: No clubbing, Other (ichthyosis) Skin: No breakdown Labs Labs: Laboratory Tests Test 11/15/20 07:40 O2 Saturation 99 % (92-99) Arterial Blood pH 7.49 (7.35-7.45) Arterial Blood pCO2 at Patient Temp 34 mmHg (35-46) Arterial Blood pO2 at Patient Temp 166 mmHg (65-108) Arterial Blood HCO3 25 mmol/L (21-28) Arterial Blood Base Excess 2 mmol/L (-3-3) FiO2 40 Assessment and Plan Assessmemt and Plan Problems Medical Problems: (1) Acute respiratory failure Status: Acute (2) Urinary tract infection Status: Acute Assessment Acute hypoxic respiratory failure Sepsis Complicated UTI Acute metabolic encephalopathy Severe constipation Mild right hydronephrosis Acute cystitis Seizure activity History of schizophrenia History of alcohol dependence History of hypertension Plan ICU monitoring Treating with cefepime, Flagyl, and daptomycin per ID Treating with Depakene and Levetiracetam per neurology Vent weaning Propofol for sedation Mits for patient safety Terrazas to BSD DVT prophylaxis home meds Full code Appreciate subspecialist input Prognosis guarded Possible palliative care per neurology CC time 34 minutes Comment Review of Relevant I have reviewed the following items any (where applicable) has been applied. Medications: Current Medications Medications (Trade) Dose Ordered Sig/Jeffrey Route PRN Reason Start Time Stop Time Status Last Admin Dose Admin Haloperidol (Haldol) 4 mg BID PO 11/14/20 12:30 11/15/20 07:22 Benztropine Mesylate (Cogentin) 0.5 mg BID PO 11/14/20 12:30 11/15/20 07:22 Hydrochlorothiazide (Microzide) 12.5 mg DAILY PO 11/14/20 12:30 11/15/20 07:21 Quetiapine Fumarate (SEROquel) 400 mg QHS PO 11/14/20 21:00 11/14/20 20:58 Valproic Acid (Depakene) 500 mg BID PO 11/14/20 12:30 11/15/20 07:21 Levetiracetam 500 mg/Dextrose 105 ml @ 420 mls/hr Q12HR IV 11/14/20 12:45 11/15/20 09:18 Micafungin Sodium 100 mg/Dextrose 100 ml @ 100 mls/hr Q24H IV 11/15/20 12:00 11/15/20 11:39 Justifications for Admission Other Justification Septic shock, urosepsis, acute renal failure CATHY HERNANDEZ III DO Nov 15, 2020 12:17
--- NOTE | 2020-11-15 13:09 | RAD ---
XR CHEST 1V History: Reason: resp. failure / Spl. Instructions: / History: Comparison: November 13, 2020 Findings: Increased patchy bibasilar opacities. No pleural effusion. No pneumothorax. Stable endotracheal tube and enteric tube. Impression: 1. Increased patchy bibasilar opacities, likely atelectasis. Electronically signed by: Ricardo Alonzo DO (11/15/2020 1:07 PM) [id number]
[2020-11-15] MEDS: PIPERACILLIN/TAZOBACTAM 3.375 GM in IV NORMAL SALINE 50ML 50 ML IV SCH ×2 (13:29→17:36)
[2020-11-15] MEDS: ENOXAPARIN 40 MG/0.4 ML SYRINGE. SQ SCH (13:29)
--- NOTE | 2020-11-15 16:04 | NUR ---
SS following for discharge planning. SS reviewed pt chart and discussed with pt RN. Pt is currently on the vent at 40%. Pt is LTC resident from [facility], ; fax [phone]. Pt on Propofol. Pt on IV Zosyn, IV Micafungin, and IV Daptomycin. Pt actively seizing. Dr. Hastings discussing CODE status and withdraw of care with pt's family. Not stable. SS will continue to follow for discharge planning.
[2020-11-15] MEDS: QUEtiapine 100 MG TABLET. PO SCH (20:28)
[2020-11-16] VITALS (24 sets, daily range): BP systolic 103–152; BP diastolic 59–97
[2020-11-16] MEDS: IV NORMAL SALINE 1000ML BAG 1,000 ML IV SCH ×3 (04:00→21:23)
[2020-11-16] MEDS: PIPERACILLIN/TAZOBACTAM 3.375 GM in IV NORMAL SALINE 50ML 50 ML IV SCH ×4 (05:58→17:33)
[2020-11-16 08:41] LABS: BASE EXCESS ABG 2 mmol/L (-3-3); HCO3 ABG 25 mmol/L (21-28); PCO2 ABG 32 mmHg (35-46); PO2 ABG 140 mmHg (65-108); SAT O2 ABG 99 % (92-99)
[2020-11-16 08:45] LABS: FIO2 ABG 30
--- NOTE | 2020-11-16 08:59 | PDOC ---
PROGRESS NOTES Date of Service DATE: 11/16/20 TIME: 08:58 Assessment Problems Medical Problems: (1) Acute respiratory failure Status: Acute (2) Urinary tract infection Status: Acute EEG, 11/15, shows intermittent bilateral periodic lateralizing epileptiform discharges. I suspect that he had a respiratory event and was found hypoxic causing anoxic encephalopathy. Possible stroke symptoms earlier, nonfocal exam now with exam of course limited by his sedation. History of alcoholism, schizophrenia, other psychiatric disease Fever, leukocytosis, sepsis, gram-positive cocci bacteremia, urinary tract infection with hydronephrosis, respiratory failure, decubitus ulcer with wound VAC Plan Depakene and levetiracetam Awaiting family decision regarding switching to palliative care and at least making him DO NOT RESUSCITATE. I doubt that aggressive treatment of the seizures will be helpful. Hold on brain MRI Overall status is very poor, prognosis is poor. Subjective None Objective Vital Signs Date Time Temp Pulse Resp B/P (MAP) Pulse Ox O2 Delivery O2 Flow Rate FiO2 11/16/20 08:20 100 Ventilator 11/16/20 06:00 74 14 125/75 (92) 11/16/20 04:00 98.6 98.6 Intake and Output 11/16/20 07:00 Intake Total 2956 ml Output Total 1870 ml Balance 1086 ml Intake IV Total 2606 ml Tube Feeding 220 ml Other 130 ml Output Urine Total 1370 ml Gastric Drainage Total 0 ml Drainage Total 500 ml PHYSICAL EXAM On ventilator, sedated, has rhythmic blinking PERRL. EOMI. CN: no focal findings. Muscle tone: normal. Muscle strength: No response to pain DTR: 1+ Plantar reflex: Silent Gait: not examined in bed. Sensory exam: Not cooperative Cerebellar: Not cooperative Review of Relevant I have reviewed the following items any (where applicable) has been applied. Labs Laboratory Tests Test 11/15/20 07:40 11/16/20 08:35 O2 Saturation 99 % (92-99) 99 % (92-99) Arterial Blood pH 7.49 (7.35-7.45) 7.51 (7.35-7.45) Arterial Blood pCO2 at Patient Temp 34 mmHg (35-46) 32 mmHg (35-46) Arterial Blood pO2 at Patient Temp 166 mmHg (65-108) 140 mmHg (65-108) Arterial Blood HCO3 25 mmol/L (21-28) 25 mmol/L (21-28) Arterial Blood Base Excess 2 mmol/L (-3-3) 2 mmol/L (-3-3) FiO2 40 30 Laboratory Tests Test 11/16/20 08:35 O2 Saturation 99 % (92-99) Arterial Blood pH 7.51 (7.35-7.45) Arterial Blood pCO2 at Patient Temp 32 mmHg (35-46) Arterial Blood pO2 at Patient Temp 140 mmHg (65-108) Arterial Blood HCO3 25 mmol/L (21-28) Arterial Blood Base Excess 2 mmol/L (-3-3) FiO2 30 Microbiology 11/15/20 Blood Culture - Preliminary, Resulted NO GROWTH AFTER 1 DAY 11/14/20 Gram Stain - Final, Resulted 11/14/20 Aerobic and Anaerobic Culture - Preliminary, Resulted 11/13/20 Urine Culture - Final, Complete Medications Current Medications Sodium Chloride 50 ml @ 50 mls/hr 1X ONCE IV ; Start 11/13/20 at 12:15; Stop 11/13/20 at 13:14; Status DC Labetalol HCl (Normodyne Iv Push) 10 mg PRN Q10MIN PRN IVP HYPERTENSION; Start 11/13/20 at 12:15 Nicardipine HCl 50 mg/Sodium Chloride 250 ml @ 25 mls/hr CONT PRN PRN IV HYPERTENSION; Start 11/13/20 at 12:15 Lorazepam (Ativan Inj) 2 mg 1X ONCE IVP Last administered on 11/13/20at 12:07; Start 11/13/20 at 12:15; Stop 11/13/20 at 12:16; Status DC Lorazepam (Ativan Inj) 2 mg STK-MED ONCE .ROUTE ; Start 11/13/20 at 12:05; Stop 11/13/20 at 12:06; Status DC Propofol 100 ml @ As Directed STK-MED ONCE IV ; Start 11/13/20 at 12:26; Stop 11/13/20 at 12:27; Status DC Piperacillin Sod/ Tazobactam Sod 3.375 gm/Sodium Chloride 50 ml @ 100 mls/hr 1X ONCE IV Last administered on 11/13/20at 13:12; Start 11/13/20 at 12:30; Stop 11/13/20 at 12:59; Status DC Vancomycin HCl 1.5 gm/Sodium Chloride 500 ml @ 250 mls/hr 1X ONCE IV Last administered on 11/13/20at 15:46; Start 11/13/20 at 13:00; Stop 11/13/20 at 14:59; Status DC Etomidate (Amidate) 20 mg 1X ONCE IV Last administered on 11/13/20at 12:21; Start 11/13/20 at 12:30; Stop 11/13/20 at 12:31; Status DC Succinylcholine Chloride (Anectine) 100 mg 1X ONCE IV Last administered on 11/13/20at 12:21; Start 11/13/20 at 12:30; Stop 11/13/20 at 12:31; Status DC Ketorolac Tromethamine (Toradol 15mg Vial) 15 mg 1X ONCE IVP Last administered on 11/13/20at 13:11; Start 11/13/20 at 12:30; Stop 11/13/20 at 12:44; Status DC Propofol 100 ml @ 2.55 mls/hr CONT PRN IV PER PROTOCOL Last administered on 11/13/20at 12:35; Start 11/13/20 at 12:30; Stop 11/14/20 at 11:24; Status DC Iohexol (Omnipaque 300 Mg/ml) 75 ml 1X ONCE IV Last administered on 11/13/20at 13:45; Start 11/13/20 at 13:45; Stop 11/13/20 at 13:46; Status DC Norepinephrine Bitartrate 8 mg/ Dextrose 258 ml @ 16.448 mls/ hr 1X ONCE IV Last administered on 11/13/20at 13:48; Start 11/13/20 at 13:45; Stop 11/14/20 at 05:26; Status DC Midazolam HCl 50 mg/Sodium Chloride 50 ml @ 0 mls/hr 1X ONCE IV Last administered on 11/13/20at 13:49; Start 11/13/20 at 13:45; Stop 11/13/20 at 13:46; Status DC Sennosides (Senna) 17.2 mg PRN BID PRN PO CONSTIPATION, 2ND CHOICE; Start 11/13/20 at 13:45 Docusate Sodium (Colace) 100 mg PRN DAILY PRN PO HARD STOOLS; Start 11/13/20 at 13:45 Ondansetron HCl (Zofran) 4 mg PRN Q6HRS PRN IVP NAUSEA/VOMITING; Start 11/13/20 at 13:45 Dextrose (Dextrose 50%-Water Syringe) 12.5 gm PRN Q15MIN PRN IV SEE COMMENTS; Start 11/13/20 at 13:45 Sodium Chloride 1,000 ml @ 100 mls/hr Q10H IV Last administered on 11/16/20at 04:00; Start 11/13/20 at 13:45 Acetaminophen (Tylenol) 650 mg PRN Q4HRS PRN PO TEMP OVER 100.4F OR MILD PAIN; Start 11/13/20 at 13:45; Stop 11/14/20 at 12:04; Status DC Enoxaparin Sodium (Lovenox 40mg Syringe) 40 mg Q24H SQ Last administered on 11/15/20at 13:29; Start 11/13/20 at 14:00 Pantoprazole Sodium (PROTONIX VIAL for IV PUSH) 40 mg DAILYAC IVP Last administered on 11/15/20at 07:21; Start 11/14/20 at 07:30 Sodium Chloride 1,000 ml @ 1,000 mls/hr 1X ONCE IV Last administered on 11/13/20at 12:30; Start 11/13/20 at 14:00; Stop 11/13/20 at 14:59; Status DC Sodium Chloride 1,000 ml @ 1,000 mls/hr 1X ONCE IV Last administered on 11/13/20at 14:00; Start 11/13/20 at 14:00; Stop 11/13/20 at 14:59; Status DC Ondansetron HCl (Zofran) 4 mg PRN Q8HRS PRN IV NAUSEA/VOMITING; Start 11/13/20 at 15:15; Stop 11/14/20 at 08:06; Status DC Morphine Sulfate (Morphine Sulfate) 4 mg PRN Q2HR PRN IV PAIN; Start 11/13/20 at 15:15; Stop 11/14/20 at 15:14; Status DC Metronidazole 100 ml @ 100 mls/hr Q12HR IV Last administered on 11/15/20at 07:22; Start 11/13/20 at 19:00; Stop 11/15/20 at 11:33; Status DC Cefepime HCl (Maxipime) 2 gm Q24H IVP Last administered on 11/14/20at 16:34; Start 11/13/20 at 17:00; Stop 11/15/20 at 11:33; Status DC Midazolam HCl 100 ml @ 1 mls/hr CONT PRN IV SEE I/O RECORD; Start 11/13/20 at 19:30 Fentanyl Citrate 30 ml @ 0 mls/hr CONT PRN IV SEE PROTOCOL; Start 11/13/20 at 19:30 Daptomycin 480 mg/ Sodium Chloride 50 ml @ 100 mls/hr Q24H IV Last administered on 11/15/20at 11:01; Start 11/14/20 at 10:00 Propofol 100 ml @ 2.322 mls/ hr CONT PRN IV PER PROTOCOL Last administered on 11/15/20at 20:26; Start 11/14/20 at 11:30 Acetaminophen (Tylenol) 650 mg PRN Q4HRS PRN PO TEMP OVER 100.4F OR MILD PAIN; Start 11/14/20 at 12:00 Haloperidol (Haldol) 4 mg BID PO Last administered on 11/15/20at 20:28; Start 11/14/20 at 12:30 Polyethylene Glycol (miraLAX PACKET) 17 gm PRN DAILY PRN PO CONSTIPATION, 1ST CHOICE; Start 11/14/20 at 12:00 Benztropine Mesylate (Cogentin) 0.5 mg BID PO Last administered on 11/15/20at 20:28; Start 11/14/20 at 12:30 Hydrochlorothiazide (Microzide) 12.5 mg DAILY PO Last administered on 11/15/20at 07:21; Start 11/14/20 at 12:30 Quetiapine Fumarate (SEROquel) 400 mg QHS PO Last administered on 11/15/20at 20:28; Start 11/14/20 at 21:00 Valproic Acid (Depakene) 500 mg BID PO Last administered on 11/15/20at 20:28; Start 11/14/20 at 12:30 Levetiracetam 500 mg/Dextrose 105 ml @ 420 mls/hr Q12HR IV Last administered on 11/15/20at 20:28; Start 11/14/20 at 12:45 Lorazepam (Ativan Inj) 2 mg PRN Q4HRS PRN IVP ANXIETY / AGITATION; Start 11/14/20 at 13:15 Micafungin Sodium 100 mg/Dextrose 100 ml @ 100 mls/hr Q24H IV Last administered on 11/15/20at 11:39; Start 11/15/20 at 12:00 Piperacillin Sod/ Tazobactam Sod 3.375 gm/Sodium Chloride 50 ml @ 100 mls/hr Q6HRS IV Last administered on 11/16/20at 05:58; Start 11/15/20 at 12:00 Active Scripts Active Tylenol (Acetaminophen) 325 Mg Tablet 650 Mg PO PRN Q4HRS PRN 30 Days Reported Seroquel (Quetiapine Fumarate) 400 Mg Tablet 2 Tab PO QHS Valproic Acid (Valproate Sodium) 500 Mg/10 Ml Solution 500 Mg PO BID Lisinopril 20 Mg Tablet 1 Tab PO DAILY Hydrochlorothiazide Tablet (Hydrochlorothiazide) 12.5 Mg Tablet 12.5 Mg PO DAILY Haloperidol 2 Mg Tablet 2 Tab PO BID Benztropine Mesylate 0.5 Mg Tablet 1 Tab PO BID Miralax (Polyethylene Glycol 3350) 17 Gm Powd.pack 1 Packet PO PRN DAILY PRN 2 Days dissolve in water Vitals/I & O Vital Sign - Last 24 Hours 11/15/20 11/15/20 11/15/20 11/15/20 09:00 10:00 11:00 11:31 Pulse 72 65 69 Resp 18 20 14 B/P (MAP) 105/62 (76) 100/62 (75) 100/60 (73) Pulse Ox 98 100 100 O2 Delivery Ventilator Ventilator Ventilator Mechanical Ventilator 11/15/20 11/15/20 11/15/20 11/15/20 11:56 12:00 13:00 13:13 Temp 98.4 98.4 Pulse 64 63 Resp 14 14 B/P (MAP) 100/64 (76) 119/68 (85) Pulse Ox 100 100 100 100 O2 Delivery Ventilator Ventilator Ventilator Ventilator 11/15/20 11/15/20 11/15/20 11/15/20 14:00 15:00 15:10 15:33 Pulse 69 61 Resp 14 14 B/P (MAP) 103/66 (78) 103/63 (76) Pulse Ox 100 100 100 O2 Delivery Ventilator Ventilator Ventilator Mechanical Ventilator 11/15/20 11/15/20 11/15/20 11/15/20 16:00 17:00 17:33 18:00 Temp 97.7 97.7 Pulse 55 62 63 Resp 14 14 14 B/P (MAP) 104/70 (81) 110/70 (83) 95/68 (77) Pulse Ox 100 100 100 100 O2 Delivery Ventilator Ventilator Ventilator Ventilator 11/15/20 11/15/20 11/15/20 11/15/20 19:00 19:57 20:00 20:00 Temp 98.0 98.0 Pulse 60 61 Resp 14 14 B/P (MAP) 102/70 (81) 103/71 (82) Pulse Ox 100 100 100 O2 Delivery Ventilator Mechanical Ventilator Ventilator Ventilator 11/15/20 11/15/20 11/15/20 11/15/20 21:00 22:00 22:55 23:00 Pulse 57 55 51 Resp 14 14 14 B/P (MAP) 112/75 (87) 84/54 (64) 98/73 (81) Pulse Ox 100 100 100 100 O2 Delivery Ventilator Ventilator Ventilator Ventilator 11/15/20 11/16/20 11/16/20 11/16/20 23:57 00:00 01:00 01:00 Pulse 55 81 Resp 14 14 B/P (MAP) 127/84 (98) 119/76 (90) Pulse Ox 100 100 100 O2 Delivery Mechanical Ventilator Ventilator Ventilator Ventilator 11/16/20 11/16/20 11/16/20 11/16/20 02:00 03:00 03:00 04:00 Temp 97.9 97.9 Pulse 74 82 Resp 14 14 B/P (MAP) 119/70 (86) 113/68 (83) Pulse Ox 100 100 100 O2 Delivery Ventilator Ventilator Ventilator Mechanical Ventilator 11/16/20 11/16/20 11/16/20 11/16/20 04:00 05:00 05:30 06:00 Temp 98.6 98.6 Pulse 73 71 74 Resp 14 14 14 B/P (MAP) 122/79 (93) 103/71 (82) 125/75 (92) Pulse Ox 100 100 100 100 O2 Delivery Ventilator Ventilator Ventilator Ventilator 11/16/20 11/16/20 08:00 08:20 Pulse Ox 100 O2 Delivery Mechanical Ventilator Ventilator Intake and Output 11/15/20 11/15/20 11/16/20 15:00 23:00 07:00 Intake Total 405 ml 910 ml 1641 ml Output Total 455 ml 465 ml 950 ml Balance -50 ml 445 ml 691 ml Justicifation of Admission Dx: Justifications for Admission: Justification of Admission Dx: N/A GÓMEZ ROMERO MD Nov 16, 2020 08:59
[2020-11-16] MEDS: BENZTROPINE MESYLATE 1 MG TABLET. PO SCH ×2 (09:00→21:23)
[2020-11-16] MEDS: PANTOPRAZOLE IV PUSH 40 MG VIAL. IVP SCH (09:02)
[2020-11-16] MEDS: levETIRAcetam 500 MG in IV DEXTROSE 5% 100ML 100 ML IV SCH ×2 (09:03→21:22)
[2020-11-16] MEDS: hydroCHLOROthiazide 12.5 MG CAPSULE PO SCH (09:06)
[2020-11-16] MEDS: HALOPERIDOL 2 MG TABLET. PO SCH ×2 (09:06→21:22)
[2020-11-16] MEDS: DAPTOmycin (GENERIC) IVPB 480 MG in IV NORMAL SALINE 50ML 50 ML IV SCH (09:21)
[2020-11-16 09:26] LABS: CALCIUM 7.7 mg/dL (8.5-10.1); CREATININE 0.9 mg/dL (0.7-1.3); GFR 102.8; MAGNESIUM 2.1 mg/dL (1.8-2.4); POTASSIUM 3.1 mmol/L (3.5-5.1)
[2020-11-16] MEDS ORDERED: POTASSIUM BICARB 20 MEQ EFFERVESCENT TABLET. PO ONE (10:00)
[2020-11-16] MEDS: VALPROIC ACID (AS SODIUM SALT) 250 MG/5 ML SOLUTION. PEG SCH ×2 (10:34→21:22)
[2020-11-16] MEDS: SCOPOLAMINE 1.5MG PATCH. TD SCH (10:35)
--- NOTE | 2020-11-16 10:37 | PDOC ---
Infectious Disease Note Subjective: Subjective Patient intubated/sedated Vital Signs: Vital Signs Vital Signs Date Time Temp Pulse Resp B/P (MAP) Pulse Ox O2 Delivery O2 Flow Rate FiO2 11/16/20 10:09 100 Ventilator 11/16/20 07:00 98.3 74 14 114/69 (84) 98.3 Physical Exam: PHYSICAL EXAM CONSTITUTIONAL: intubated/sedated. HEENT: Normocephalic, atraumatic. OG tube in place. Oropharynx clear. Appears to have poor dentition. NECK: Supple. Left EJ present. LUNGS: Decreased breath sounds at the bases. HEART: S1, S2, without murmurs. ABDOMEN: Mildly distended. No guarding. Bowel sounds present. EXTREMITIES: No edema. DERM: Warm and dry. No generalized rash. NEUROLOGIC: Intubated. BACK: Reveals sacral wound, there is a thin layer of tissue over the bone, foul smelling drainage with wound VAC in place. Medications: Inpatient Meds: Medications reviewed. Labs: Lab Laboratory Tests Test 11/16/20 07:45 11/16/20 08:35 Sodium Level 144 mmol/L (136-145) Potassium Level 3.1 mmol/L (3.5-5.1) Chloride Level 108 mmol/L (98-107) Carbon Dioxide Level 27 mmol/L (21-32) Anion Gap 9 (6-14) Blood Urea Nitrogen 17 mg/dL (8-26) Creatinine 0.9 mg/dL (0.7-1.3) Estimated GFR (Cockcroft-Gault) 102.8 Glucose Level 111 mg/dL (70-99) Calcium Level 7.7 mg/dL (8.5-10.1) Magnesium Level 2.1 mg/dL (1.8-2.4) O2 Saturation 99 % (92-99) Arterial Blood pH 7.51 (7.35-7.45) Arterial Blood pCO2 at Patient Temp 32 mmHg (35-46) Arterial Blood pO2 at Patient Temp 140 mmHg (65-108) Arterial Blood HCO3 25 mmol/L (21-28) Arterial Blood Base Excess 2 mmol/L (-3-3) FiO2 30 Objective: Assessment: 1. Fever. Resolved 2. Leukocytosis. 3. Sepsis. 4. Enterococcal bacteremia, 1 out of 4 bottles present on admission, 11/13/2020. Fungemia 1 out of 4 bottles present on admission 11/13/2020 5. Complicated urinary tract infection with hydronephrosis, right greater than left. Urine cultures contamination 6. Encephalopathy with seizure activity on EEG 7. Acute respiratory failure, status post intubation. 8. Decubitus ulcer with wound VAC in place. Enterococcus and Corynebacterium stratum on swab cultures 9. History of ETOH dependence. 10.History of schizophrenia 11.History of Anxiety Plan: Plan of Care Continue micafungin November 15 Continue Zosyn, was on cefepime Continue daptomycin. November 14 Repeat blood cultures 11/15/2020, 11/16/2020 Follow up labs and cultures. Change Terrazas if not done already. Wound VAC as directed. Offload. Continue supportive care. Critically ill Prognosis poor Discussed with matthew at bedside TRINI KAT MD Nov 16, 2020 10:37
--- NOTE | 2020-11-16 10:47 | PDOC ---
PULMONARY PROGRESS NOTES DATE: 11/16/20 TIME: 10:42 Subjective remains on vent support 40% PEEP of 5 no overnight concerns This am had another seizure, while on CPAP Vitals Vital Signs Date Time Temp Pulse Resp B/P (MAP) Pulse Ox O2 Delivery O2 Flow Rate FiO2 11/16/20 10:09 100 Ventilator 11/16/20 07:00 98.3 74 14 114/69 (84) 98.3 Comments intubated/sedated General: Lethargic Lungs: Clear Cardiovascular: S1 Abdomen: Soft Extremities: No Edema Skin: Warm, Dry, Other (wound to coccyx ) Labs Laboratory Tests Test 11/15/20 07:40 11/16/20 07:45 11/16/20 08:35 O2 Saturation 99 % (92-99) 99 % (92-99) Arterial Blood pH 7.49 (7.35-7.45) 7.51 (7.35-7.45) Arterial Blood pCO2 at Patient Temp 34 mmHg (35-46) 32 mmHg (35-46) Arterial Blood pO2 at Patient Temp 166 mmHg (65-108) 140 mmHg (65-108) Arterial Blood HCO3 25 mmol/L (21-28) 25 mmol/L (21-28) Arterial Blood Base Excess 2 mmol/L (-3-3) 2 mmol/L (-3-3) FiO2 40 30 Sodium Level 144 mmol/L (136-145) Potassium Level 3.1 mmol/L (3.5-5.1) Chloride Level 108 mmol/L (98-107) Carbon Dioxide Level 27 mmol/L (21-32) Anion Gap 9 (6-14) Blood Urea Nitrogen 17 mg/dL (8-26) Creatinine 0.9 mg/dL (0.7-1.3) Estimated GFR (Cockcroft-Gault) 102.8 Glucose Level 111 mg/dL (70-99) Calcium Level 7.7 mg/dL (8.5-10.1) Magnesium Level 2.1 mg/dL (1.8-2.4) Laboratory Tests Test 11/16/20 07:45 11/16/20 08:35 Sodium Level 144 mmol/L (136-145) Potassium Level 3.1 mmol/L (3.5-5.1) Chloride Level 108 mmol/L (98-107) Carbon Dioxide Level 27 mmol/L (21-32) Anion Gap 9 (6-14) Blood Urea Nitrogen 17 mg/dL (8-26) Creatinine 0.9 mg/dL (0.7-1.3) Estimated GFR (Cockcroft-Gault) 102.8 Glucose Level 111 mg/dL (70-99) Calcium Level 7.7 mg/dL (8.5-10.1) Magnesium Level 2.1 mg/dL (1.8-2.4) O2 Saturation 99 % (92-99) Arterial Blood pH 7.51 (7.35-7.45) Arterial Blood pCO2 at Patient Temp 32 mmHg (35-46) Arterial Blood pO2 at Patient Temp 140 mmHg (65-108) Arterial Blood HCO3 25 mmol/L (21-28) Arterial Blood Base Excess 2 mmol/L (-3-3) FiO2 30 Medications Active Scripts Medications Dose Route/Sig Max Daily Dose Days Date Category Dose Instructions Seroquel (Quetiapine Fumarate) 400 Mg Tablet 2 Tab PO QHS 11/14/20 Reported Valproic Acid (Valproate Sodium) 500 Mg/10 Ml Solution 500 Mg PO BID 11/14/20 Reported Lisinopril 20 Mg Tablet 1 Tab PO DAILY 09/25/20 Reported Hydrochlorothiazide Tablet (Hydrochlorothiazide) 12.5 Mg Tablet 12.5 Mg PO DAILY 09/25/20 Reported Haloperidol 2 Mg Tablet 2 Tab PO BID 09/25/20 Reported Benztropine Mesylate 0.5 Mg Tablet 1 Tab PO BID 09/25/20 Reported Miralax (Polyethylene Glycol 3350) 17 Gm Powd.pack 1 Packet PO PRN DAILY PRN 2 09/25/20 Reported dissolve in water Tylenol (Acetaminophen) 325 Mg Tablet 650 Mg PO PRN Q4HRS PRN 30 08/03/20 Rx Impression . IMPRESSION: 1. Acute respiratory failure secondary to encephalopathy 2/2 seizure. The patient was intubated for airway protection. This am had another seizure, while on CPAP 2. Metabolic encephalopathy. 3. No definite infiltrate seen on the chest x-ray. 4. Adequate gas exchange on ABGs. 5. History of schizophrenia. 6. History of alcoholism. 7. Enterococcus bacteremia Plan . Updated 11/16 D/W family at bed side. They agree with DNR once extubated failed CPAP due to seizure Continue vent support currently on /5/40% ABG and CXR reviewed-- Hold further PS trial today 2/2 seizure activity per neuro Follow neurology recs-- EEG showed seizure activity continue AEM/Keppra seizure precautions Continue antibiotics per Infectious Disease-- follow cultures start TF for nutritional support DVT/GI PPX Enterococcus bacteremia/ Abx per ID critical care time 30 minutes including review of the chart, imaging studies and decision making and making a plan. Updated 11/15 Continue vent support currently on 16/500/5/40% ABG and CXR reviewed-- reduce rate to 14 and 30% Hold PS trial today 2/2 seizure activity per neuro Follow neurology recs-- EEG showed seizure activity continue AEM/Keppra seizure precautions Continue antibiotics per Infectious Disease-- follow cultures start TF for nutritional support DVT/GI PPX Enterococcus bacteremia/ Abx per ID critical care time 30 minutes including review of the chart, imaging studies and decision making and making a plan. 11/14 RECOMMENDATIONS: 1. I have discussed with RN and RT. We will stop sedation, assess his mental status. 2. Once the patient is fully awake, we will place him on a spontaneous breathing trial, and likely extubation in the next 24 hours or even less. 3. Continue antibiotics per Infectious Disease. 4. Lovenox for DVT prophylaxis. 5. Further recommendations to follow. Total critical care time 33 minutes including review of the chart, imaging studies and decision making and making a plan. HUGO ROSS MD Nov 16, 2020 10:47
[2020-11-16 11:54] LABS: BASO % 1 % (0-3); EOS # 0.1 x10^3/uL (0.0-0.7); EOS % 3 % (0-3); HEMATOCRIT 23.9 % (39.0-53.0); HEMOGLOBIN 7.8 g/dL (13.0-17.5); LYMPH # 0.7 x10^3/uL (1.0-4.8); LYMPH % 13 % (24-48); MEAN CORPUSCULAR HEMOGLOBIN 27 pg (25-35); MEAN CORPUSCULAR HGB CONC 32 g/dL (31-37); MEAN CORPUSCULAR VOLUME 84 fL (79-100); MONO # 0.5 x10^3/uL (0.0-1.1); MONO % 9 % (0-9); NEUT # 4.1 x10^3/uL (1.8-7.7); NEUT % 75 % (31-73); PLATELET COUNT 192 x10^3/uL (140-400); RED BLOOD COUNT 2.85 x10^6/uL (4.30-5.70); RED CELL DISTRIBUTION WIDTH 16.2 % (11.5-14.5); WHITE BLOOD COUNT 5.4 x10^3/uL (4.0-11.0)
[2020-11-16] MEDS: MICAFUNGIN 100 MG in IV DEXTROSE 5% 100ML 100 ML IV SCH (11:58)
--- NOTE | 2020-11-16 12:40 | PDOC ---
[employer] PROGRESS NOTE Date of Service DOS: DATE: 11/16/20 TIME: 12:37 Chief Complaint Chief Complaint Altered mental status, acute encephalopathy Seizure, disorder Acute respiratory failure History of schizophrenia. History of alcoholism. sepsis and bacteremia History of Present Illness History of Present Illness 11/16 family in room, pt made DNR, will try to extubate soon, weaning vent OK he may have ongoing seizures per Neuro, 11/15/2020 Patient seen and examined Chart reviewed, spoke with nursing Currently sedated and vent weaning AC/500/14/30% on 5.0 PEEP 11/14/2020 Patient seen and examined Patient on ventilation and unconscious Stopped versaid, currently vent weaning Witnessed tremors of arms, possible seizure activity. Informed nursing and discussed starting ativan Current ventilation settings: A/C/16/500ml/40% with 5 PEEP HPI 11/13/2020 History obtained from ED physician Patient is a 64-year-old male with past medical history of alcohol dependence, anxiety, schizophrenia, hypertension who resides at [facility] who presents to the ED due to concern for altered mental status. According to the alf patient was unresponsive and was altered from his baseline. In the ED patient required to be intubated due to possible seizure and for airway protection. No reported prior illness, changes or injury according to alf report. Vitals/I&O Vitals/I&O: Vital Signs Date Time Temp Pulse Resp B/P (MAP) Pulse Ox O2 Delivery O2 Flow Rate FiO2 11/16/20 11:36 100 Ventilator 11/16/20 11:00 98.2 76 14 116/72 (87) 98.2 I & O 11/15/20 11/15/20 11/16/20 15:00 23:00 07:00 Intake Total 405 ml 910 ml 1641 ml Output Total 455 ml 465 ml 950 ml Balance -50 ml 445 ml 691 ml Physical Exam Physical Exam: CONSTITUTIONAL: intubated/sedated. HEENT: Normocephalic, atraumatic. OG tube in place. Oropharynx clear. Appears to have poor dentition. NECK: Supple. Left EJ present. LUNGS: Decreased breath sounds at the bases. HEART: S1, S2, without murmurs. ABDOMEN: Mildly distended. No guarding. Bowel sounds present. EXTREMITIES: No edema. DERM: Warm and dry. No generalized rash. NEUROLOGIC: Intubated. BACK: Reveals sacral wound, there is a thin layer of tissue over the bone, foul smelling drainage with wound VAC in place. General: Other (Unconscious with ventilator ) Heart: Regular rate Lungs: Clear Abdomen: Soft Extremities: No clubbing, Other (ichthyosis) Skin: No breakdown Labs Labs: Laboratory Tests Test 11/16/20 07:45 11/16/20 08:35 11/16/20 11:41 White Blood Count 5.4 x10^3/uL (4.0-11.0) Red Blood Count 2.85 x10^6/uL (4.30-5.70) Hemoglobin 7.8 g/dL (13.0-17.5) Hematocrit 23.9 % (39.0-53.0) Mean Corpuscular Volume 84 fL (79-100) Mean Corpuscular Hemoglobin 27 pg (25-35) Mean Corpuscular Hemoglobin Concent 32 g/dL (31-37) Red Cell Distribution Width 16.2 % (11.5-14.5) Platelet Count 192 x10^3/uL (140-400) Neutrophils (%) (Auto) 75 % (31-73) Lymphocytes (%) (Auto) 13 % (24-48) Monocytes (%) (Auto) 9 % (0-9) Eosinophils (%) (Auto) 3 % (0-3) Basophils (%) (Auto) 1 % (0-3) Neutrophils # (Auto) 4.1 x10^3/uL (1.8-7.7) Lymphocytes # (Auto) 0.7 x10^3/uL (1.0-4.8) Monocytes # (Auto) 0.5 x10^3/uL (0.0-1.1) Eosinophils # (Auto) 0.1 x10^3/uL (0.0-0.7) Basophils # (Auto) 0.0 x10^3/uL (0.0-0.2) Sodium Level 144 mmol/L (136-145) Potassium Level 3.1 mmol/L (3.5-5.1) Chloride Level 108 mmol/L (98-107) Carbon Dioxide Level 27 mmol/L (21-32) Anion Gap 9 (6-14) Blood Urea Nitrogen 17 mg/dL (8-26) Creatinine 0.9 mg/dL (0.7-1.3) Estimated GFR (Cockcroft-Gault) 102.8 Glucose Level 111 mg/dL (70-99) Calcium Level 7.7 mg/dL (8.5-10.1) Magnesium Level 2.1 mg/dL (1.8-2.4) O2 Saturation 99 % (92-99) Arterial Blood pH 7.51 (7.35-7.45) Arterial Blood pCO2 at Patient Temp 32 mmHg (35-46) Arterial Blood pO2 at Patient Temp 140 mmHg (65-108) Arterial Blood HCO3 25 mmol/L (21-28) Arterial Blood Base Excess 2 mmol/L (-3-3) FiO2 30 Glucose (Fingerstick) 124 mg/dL (70-99) Assessment and Plan Assessmemt and Plan Problems Medical Problems: (1) Acute respiratory failure Status: Acute (2) Urinary tract infection Status: Acute Comment Review of Relevant I have reviewed the following items any (where applicable) has been applied. Medications: Current Medications Medications (Trade) Dose Ordered Sig/Jeffrey Route PRN Reason Start Time Stop Time Status Last Admin Dose Admin Valproic Acid (Depakene) 500 mg BID PEG 11/16/20 10:00 11/16/20 10:34 Potassium Bicarbonate (Potassium Effervescent Tablet) 40 meq 1X ONCE PO 11/16/20 10:00 11/16/20 10:01 DC 11/16/20 10:35 Scopolamine (Transderm-Scop) 1 patch Q3DAYS TD 11/16/20 11:00 11/16/20 10:35 Justifications for Admission Other Justification Septic shock, urosepsis, acute renal failure LEE TRAN MD Nov 16, 2020 12:40
[2020-11-16] MEDS: ENOXAPARIN 40 MG/0.4 ML SYRINGE. SQ SCH (13:46)
--- NOTE | 2020-11-16 14:39 | NUR ---
Wound/Ostomy Care Wound Type/Assessment: Wound care follow up for coccyx wound. 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 Pt has DTI to left heel that has improved. Dressings removed and wounds cleansed and assessed. Treatment Recommendations/Plan: Continue with NPWT veraflo. Skin prepped and one piece of hopson veraflo vac foam placed to wound bed. A good seal maintained at 125mmHg with veraflo settings at 16mL every 3 hours for a 3 minute dwell time. WC will change again on Saturday. Education provided: Pt intubated at this time. WC POC discussed with RN Offloading surface/device: Patient is on an ICU bed at this time. Patient repositioned to right side using wedge. Recommended Referrals/Tests: N/A Discharge Recommendations for dressings: Continue current treatment plan. Wound care will follow up on Saturday. Bed lowered. Addendum: 11/16/20 at 1455 by PAULA KHAN RN left heel redressed with skin prep and foam dressing.
[2020-11-16] MEDS: PROPOFOL 100 ML IV PRN (15:25)
--- NOTE | 2020-11-16 16:02 | NUR ---
SS following up with discharge planning. SS reviewed pt chart and discussed with pt RN. Pt is currently on the vent at 30%. Pt had CPAP trial today but failed due to seizure activity. DNR now. Pt on IV Zosyn, IV Micafungin, and IV Daptomycin. Wound vac in place. Pt is LTC resident from [facility], ; fax [phone]. Not stable. SS will continue to follow for discharge planning.
--- NOTE | 2020-11-16 16:40 | NUR ---
0935 Sedation stopped to wake pt up. About 25min min pt starting showing seizure like activities and vomited. Pt treated with ativan and sedation resumed. Currently on propofol; vent settings AC 14/500/5/30%. Will cont. to monitor
[2020-11-16] MEDS: QUEtiapine 100 MG TABLET. PO SCH (21:23)
[2020-11-17] VITALS (23 sets, daily range): BP systolic 84–152; BP diastolic 50–86
[2020-11-17] MEDS: PIPERACILLIN/TAZOBACTAM 3.375 GM in IV NORMAL SALINE 50ML 50 ML IV SCH ×5 (00:07→23:40)
--- NOTE | 2020-11-17 03:00 | NUR ---
unable to get temp on at midnight and several times thereafter. Placed Bearhugger on patient.
[2020-11-17] MEDS: IV NORMAL SALINE 1000ML BAG 1,000 ML IV SCH (04:19)
[2020-11-17] MEDS: PROPOFOL 100 ML IV PRN (04:19)
[2020-11-17 08:37] LABS: BASE EXCESS ABG 5 mmol/L (-3-3); HCO3 ABG 28 mmol/L (21-28); PCO2 ABG 36 mmHg (35-46); PO2 ABG 130 mmHg (65-108); SAT O2 ABG 98 % (92-99)
[2020-11-17 08:49] LABS: FIO2 ABG 30% VENT
[2020-11-17] MEDS: VALPROIC ACID (AS SODIUM SALT) 250 MG/5 ML SOLUTION. PEG SCH ×2 (08:52→20:39)
[2020-11-17] MEDS: BENZTROPINE MESYLATE 1 MG TABLET. PO SCH ×2 (08:52→20:40)
[2020-11-17] MEDS: levETIRAcetam 500 MG in IV DEXTROSE 5% 100ML 100 ML IV SCH ×2 (08:52→20:37)
[2020-11-17] MEDS: hydroCHLOROthiazide 12.5 MG CAPSULE PO SCH (08:52)
[2020-11-17] MEDS: PANTOPRAZOLE IV PUSH 40 MG VIAL. IVP SCH (08:53)
[2020-11-17] MEDS: DAPTOmycin (GENERIC) IVPB 480 MG in IV NORMAL SALINE 50ML 50 ML IV SCH (09:44)
--- NOTE | 2020-11-17 09:56 | PDOC ---
PULMONARY PROGRESS NOTES DATE: 11/17/20 TIME: 09:50 Subjective remains on vent support 30% PEEP of 5 no overnight concerns Vitals Vital Signs Date Time Temp Pulse Resp B/P (MAP) Pulse Ox O2 Delivery O2 Flow Rate FiO2 11/17/20 09:43 100 Ventilator 11/17/20 07:00 79 14 119/64 (82) 11/17/20 06:00 97.4 97.4 Comments intubated/sedated Lungs: Clear Cardiovascular: S1 Abdomen: Soft Extremities: No Edema Skin: Warm, Dry, Other (wound to coccyx ) Labs Laboratory Tests Test 11/16/20 07:45 11/16/20 08:35 11/16/20 11:41 11/16/20 18:03 White Blood Count 5.4 x10^3/uL (4.0-11.0) Red Blood Count 2.85 x10^6/uL (4.30-5.70) Hemoglobin 7.8 g/dL (13.0-17.5) Hematocrit 23.9 % (39.0-53.0) Mean Corpuscular Volume 84 fL (79-100) Mean Corpuscular Hemoglobin 27 pg (25-35) Mean Corpuscular Hemoglobin Concent 32 g/dL (31-37) Red Cell Distribution Width 16.2 % (11.5-14.5) Platelet Count 192 x10^3/uL (140-400) Neutrophils (%) (Auto) 75 % (31-73) Lymphocytes (%) (Auto) 13 % (24-48) Monocytes (%) (Auto) 9 % (0-9) Eosinophils (%) (Auto) 3 % (0-3) Basophils (%) (Auto) 1 % (0-3) Neutrophils # (Auto) 4.1 x10^3/uL (1.8-7.7) Lymphocytes # (Auto) 0.7 x10^3/uL (1.0-4.8) Monocytes # (Auto) 0.5 x10^3/uL (0.0-1.1) Eosinophils # (Auto) 0.1 x10^3/uL (0.0-0.7) Basophils # (Auto) 0.0 x10^3/uL (0.0-0.2) Sodium Level 144 mmol/L (136-145) Potassium Level 3.1 mmol/L (3.5-5.1) Chloride Level 108 mmol/L (98-107) Carbon Dioxide Level 27 mmol/L (21-32) Anion Gap 9 (6-14) Blood Urea Nitrogen 17 mg/dL (8-26) Creatinine 0.9 mg/dL (0.7-1.3) Estimated GFR (Cockcroft-Gault) 102.8 Glucose Level 111 mg/dL (70-99) Calcium Level 7.7 mg/dL (8.5-10.1) Magnesium Level 2.1 mg/dL (1.8-2.4) O2 Saturation 99 % (92-99) Arterial Blood pH 7.51 (7.35-7.45) Arterial Blood pCO2 at Patient Temp 32 mmHg (35-46) Arterial Blood pO2 at Patient Temp 140 mmHg (65-108) Arterial Blood HCO3 25 mmol/L (21-28) Arterial Blood Base Excess 2 mmol/L (-3-3) FiO2 30 Glucose (Fingerstick) 124 mg/dL (70-99) 85 mg/dL (70-99) Test 11/17/20 05:15 11/17/20 08:00 Glucose (Fingerstick) 109 mg/dL (70-99) O2 Saturation 98 % (92-99) Arterial Blood pH 7.51 (7.35-7.45) Arterial Blood pCO2 at Patient Temp 36 mmHg (35-46) Arterial Blood pO2 at Patient Temp 130 mmHg (65-108) Arterial Blood HCO3 28 mmol/L (21-28) Arterial Blood Base Excess 5 mmol/L (-3-3) FiO2 30% vent Laboratory Tests Test 11/16/20 11:41 11/16/20 18:03 11/17/20 05:15 11/17/20 08:00 Glucose (Fingerstick) 124 mg/dL (70-99) 85 mg/dL (70-99) 109 mg/dL (70-99) O2 Saturation 98 % (92-99) Arterial Blood pH 7.51 (7.35-7.45) Arterial Blood pCO2 at Patient Temp 36 mmHg (35-46) Arterial Blood pO2 at Patient Temp 130 mmHg (65-108) Arterial Blood HCO3 28 mmol/L (21-28) Arterial Blood Base Excess 5 mmol/L (-3-3) FiO2 30% vent Medications Active Scripts Medications Dose Route/Sig Max Daily Dose Days Date Category Dose Instructions Seroquel (Quetiapine Fumarate) 400 Mg Tablet 2 Tab PO QHS 11/14/20 Reported Valproic Acid (Valproate Sodium) 500 Mg/10 Ml Solution 500 Mg PO BID 11/14/20 Reported Lisinopril 20 Mg Tablet 1 Tab PO DAILY 09/25/20 Reported Hydrochlorothiazide Tablet (Hydrochlorothiazide) 12.5 Mg Tablet 12.5 Mg PO DAILY 09/25/20 Reported Haloperidol 2 Mg Tablet 2 Tab PO BID 09/25/20 Reported Benztropine Mesylate 0.5 Mg Tablet 1 Tab PO BID 09/25/20 Reported Miralax (Polyethylene Glycol 3350) 17 Gm Powd.pack 1 Packet PO PRN DAILY PRN 2 09/25/20 Reported dissolve in water Tylenol (Acetaminophen) 325 Mg Tablet 650 Mg PO PRN Q4HRS PRN 30 08/03/20 Rx Impression . IMPRESSION: 1. Acute respiratory failure secondary to encephalopathy 2/2 seizure. The patient was intubated for airway protection. Recurrent seizures, 2. Metabolic encephalopathy 3. No definite infiltrate seen on the chest x-ray. 4. Adequate gas exchange on ABGs. 5. History of schizophrenia. 6. History of alcoholism. 7. Enterococcus bacteremia Plan . Updated 11/17 Continue vent support currently on 30% and PEEP of 5, recommend palliative extubation at this time D/W sister failed CPAP due to seizure on 11/16 ABG and CXR reviewed--no changes Follow neurology recs-- EEG showed seizure activity continue AEM/Keppra seizure precautions Continue antibiotics per Infectious Disease-- follow cultures positive for Enterococcus bacteremia Continue TF for nutritional support DVT/GI PPX D/W sister (DPOA) she agrees to palliative extubation and if he has additional seizures will proceed with comfort measures including morphine gtt critical care time 30 minutes including review of the chart, imaging studies and decision making and making a plan. Pt. is now DNR Updated 11/16 D/W family at bed side. They agree with DNR once extubated failed CPAP due to seizure Continue vent support currently on 16/500/5/40% ABG and CXR reviewed-- Hold further PS trial today 2/2 seizure activity per neuro Follow neurology recs-- EEG showed seizure activity continue AEM/Keppra seizure precautions Continue antibiotics per Infectious Disease-- follow cultures start TF for nutritional support DVT/GI PPX Enterococcus bacteremia/ Abx per ID critical care time 30 minutes including review of the chart, imaging studies and decision making and making a plan. Updated 11/15 [place] [address]//40% ABG and CXR reviewed-- reduce rate to 14 and 30% Hold PS trial today 2/2 seizure activity per neuro Follow neurology recs-- EEG showed seizure activity continue AEM/Keppra seizure precautions Continue antibiotics per Infectious Disease-- follow cultures start TF for nutritional support DVT/GI PPX Enterococcus bacteremia/ Abx per ID critical care time 30 minutes including review of the chart, imaging studies and decision making and making a plan. 11/14 RECOMMENDATIONS: 1. I have discussed with RN and RT. We will stop sedation, assess his mental status. 2. Once the patient is fully awake, we will place him on a spontaneous breathing trial, and likely extubation in the next 24 hours or even less. 3. Continue antibiotics per Infectious Disease. 4. Lovenox for DVT prophylaxis. 5. Further recommendations to follow. Total critical care time 33 minutes including review of the chart, imaging studies and decision making and making a plan. HUGO ROSS MD Nov 17, 2020 09:56
[2020-11-17] MEDS: HALOPERIDOL 2 MG TABLET. PO SCH ×2 (10:14→20:40)
[2020-11-17] MEDS: AMINO AC 3%/ELECTROLYTE/GLYCER 1,000 ML IV SCH ×2 (11:46→22:14)
[2020-11-17] MEDS: MICAFUNGIN 100 MG in IV DEXTROSE 5% 100ML 100 ML IV SCH (11:47)
--- NOTE | 2020-11-17 13:02 | PDOC ---
Infectious Disease Note Subjective: Subjective Patient palliatively extubated Opens eyes transiently Does not follow any commands Discussed with nursing staff Vital Signs: Vital Signs Vital Signs Date Time Temp Pulse Resp B/P (MAP) Pulse Ox O2 Delivery O2 Flow Rate FiO2 11/17/20 12:00 Mechanical Ventilator 11/17/20 11:00 78 16 139/85 (103) 100 2.0 11/17/20 10:00 98.9 98.9 Physical Exam: PHYSICAL EXAM CONSTITUTIONAL: Sleepy, opens eyes transiently HEENT: Normocephalic, atraumatic. OG tube in place. Oropharynx clear. Appears to have poor dentition. NECK: Supple. Left EJ present. LUNGS: Decreased breath sounds at the bases. HEART: S1, S2, without murmurs. ABDOMEN: Mildly distended. No guarding. Bowel sounds present. EXTREMITIES: No edema. DERM: Warm and dry. No generalized rash. NEUROLOGIC: Opens eyes transiently does not respond to any questions BACK: Reveals sacral wound, there is a thin layer of tissue over the bone, foul smelling drainage with wound VAC in place. Medications: Inpatient Meds: Medications reviewed. Labs: Lab Laboratory Tests Test 11/16/20 18:03 11/17/20 05:15 11/17/20 08:00 11/17/20 11:57 Glucose (Fingerstick) 85 mg/dL (70-99) 109 mg/dL (70-99) 127 mg/dL (70-99) O2 Saturation 98 % (92-99) Arterial Blood pH 7.51 (7.35-7.45) Arterial Blood pCO2 at Patient Temp 36 mmHg (35-46) Arterial Blood pO2 at Patient Temp 130 mmHg (65-108) Arterial Blood HCO3 28 mmol/L (21-28) Arterial Blood Base Excess 5 mmol/L (-3-3) FiO2 30% vent Objective: Assessment: 1. Fever. Resolved 2. Leukocytosis. 3. Sepsis. 4. Enterococcal bacteremia, 1 out of 4 bottles present on admission, 11/13/2020. Fungemia 1 out of 4 bottles present on admission 11/13/2020 5. Complicated urinary tract infection with hydronephrosis, right greater than left. Urine cultures contamination 6. Encephalopathy with seizure activity on EEG 7. Acute respiratory failure, status post intubation. 8. Decubitus ulcer with wound VAC in place. Enterococcus and Corynebacterium stratum on swab cultures 9. History of ETOH dependence. 10.History of schizophrenia 11.History of Anxiety Plan: Plan of Care Continue micafungin November 15 Continue Zosyn, was on cefepime Continue daptomycin. November 14 Repeat blood cultures 11/15/2020, 11/16/2020 negative so far Follow up labs and cultures. Terrazas changed per nursing staff Wound VAC as directed. Offload. Continue supportive care. Critically ill Prognosis poor Discussed with nursing staff TRINI KAT MD Nov 17, 2020 12:36
--- NOTE | 2020-11-17 13:03 | PDOC ---
PROGRESS NOTES Date of Service DATE: 11/17/20 TIME: 12:53 Assessment Problems Medical Problems: (1) Acute respiratory failure Status: Acute (2) Urinary tract infection Status: Acute EEG, 11/15, shows intermittent bilateral periodic lateralizing epileptiform discharges. I suspect that he had a respiratory event and was found hypoxic causing anoxic encephalopathy. No clinical seizures today Possible stroke symptoms earlier, nonfocal exam now with exam of course limited by his sedation. History of alcoholism, schizophrenia, other psychiatric disease Fever, leukocytosis, sepsis, gram-positive cocci bacteremia, urinary tract infection with hydronephrosis, respiratory failure, decubitus ulcer with wound VAC Extubated 11/16, is DO NOT RESUSCITATE Plan Depakene and levetiracetam Hold on brain MRI Overall status is very poor, prognosis is poor. Subjective Denies pain Objective Vital Signs Date Time Temp Pulse Resp B/P (MAP) Pulse Ox O2 Delivery O2 Flow Rate FiO2 11/17/20 12:00 Mechanical Ventilator 11/17/20 11:00 78 16 139/85 (103) 100 2.0 11/17/20 10:00 98.9 98.9 Intake and Output 11/17/20 07:00 Intake Total 4059.2 ml Output Total 1110 ml Balance 2949.2 ml Intake IV Total 2705.2 ml Tube Feeding 1054 ml Blood Product IV Normal Saline Flush 150 ml Other 150 ml Output Urine Total 1110 ml Gastric Drainage Total 0 ml PHYSICAL EXAM Tells me his name, does not know date or location, does not follow commands PERRL. EOMI. CN: no focal findings. Muscle tone: normal. Muscle strength: 2-3/5 DTR: 1+ Plantar reflex: Silent Gait: not examined in bed. Sensory exam: Not cooperative Cerebellar: Not cooperative Review of Relevant I have reviewed the following items any (where applicable) has been applied. Labs Laboratory Tests Test 11/16/20 07:45 11/16/20 08:35 11/16/20 11:41 11/16/20 18:03 White Blood Count 5.4 x10^3/uL (4.0-11.0) Red Blood Count 2.85 x10^6/uL (4.30-5.70) Hemoglobin 7.8 g/dL (13.0-17.5) Hematocrit 23.9 % (39.0-53.0) Mean Corpuscular Volume 84 fL (79-100) Mean Corpuscular Hemoglobin 27 pg (25-35) Mean Corpuscular Hemoglobin Concent 32 g/dL (31-37) Red Cell Distribution Width 16.2 % (11.5-14.5) Platelet Count 192 x10^3/uL (140-400) Neutrophils (%) (Auto) 75 % (31-73) Lymphocytes (%) (Auto) 13 % (24-48) Monocytes (%) (Auto) 9 % (0-9) Eosinophils (%) (Auto) 3 % (0-3) Basophils (%) (Auto) 1 % (0-3) Neutrophils # (Auto) 4.1 x10^3/uL (1.8-7.7) Lymphocytes # (Auto) 0.7 x10^3/uL (1.0-4.8) Monocytes # (Auto) 0.5 x10^3/uL (0.0-1.1) Eosinophils # (Auto) 0.1 x10^3/uL (0.0-0.7) Basophils # (Auto) 0.0 x10^3/uL (0.0-0.2) Sodium Level 144 mmol/L (136-145) Potassium Level 3.1 mmol/L (3.5-5.1) Chloride Level 108 mmol/L (98-107) Carbon Dioxide Level 27 mmol/L (21-32) Anion Gap 9 (6-14) Blood Urea Nitrogen 17 mg/dL (8-26) Creatinine 0.9 mg/dL (0.7-1.3) Estimated GFR (Cockcroft-Gault) 102.8 Glucose Level 111 mg/dL (70-99) Calcium Level 7.7 mg/dL (8.5-10.1) Magnesium Level 2.1 mg/dL (1.8-2.4) O2 Saturation 99 % (92-99) Arterial Blood pH 7.51 (7.35-7.45) Arterial Blood pCO2 at Patient Temp 32 mmHg (35-46) Arterial Blood pO2 at Patient Temp 140 mmHg (65-108) Arterial Blood HCO3 25 mmol/L (21-28) Arterial Blood Base Excess 2 mmol/L (-3-3) FiO2 30 Glucose (Fingerstick) 124 mg/dL (70-99) 85 mg/dL (70-99) Test 11/17/20 05:15 11/17/20 08:00 11/17/20 11:57 Glucose (Fingerstick) 109 mg/dL (70-99) 127 mg/dL (70-99) O2 Saturation 98 % (92-99) Arterial Blood pH 7.51 (7.35-7.45) Arterial Blood pCO2 at Patient Temp 36 mmHg (35-46) Arterial Blood pO2 at Patient Temp 130 mmHg (65-108) Arterial Blood HCO3 28 mmol/L (21-28) Arterial Blood Base Excess 5 mmol/L (-3-3) FiO2 30% vent Laboratory Tests Test 11/16/20 18:03 11/17/20 05:15 11/17/20 08:00 11/17/20 11:57 Glucose (Fingerstick) 85 mg/dL (70-99) 109 mg/dL (70-99) 127 mg/dL (70-99) O2 Saturation 98 % (92-99) Arterial Blood pH 7.51 (7.35-7.45) Arterial Blood pCO2 at Patient Temp 36 mmHg (35-46) Arterial Blood pO2 at Patient Temp 130 mmHg (65-108) Arterial Blood HCO3 28 mmol/L (21-28) Arterial Blood Base Excess 5 mmol/L (-3-3) FiO2 30% vent Microbiology 11/16/20 Blood Culture - Preliminary, Resulted NO GROWTH AFTER 1 DAY 11/14/20 Gram Stain - Final, Resulted 11/14/20 Aerobic and Anaerobic Culture - Preliminary, Resulted 11/14/20 Antimicrobic Susceptibility - Preliminary, Resulted 11/13/20 Urine Culture - Final, Complete Medications Current Medications Sodium Chloride 50 ml @ 50 mls/hr 1X ONCE IV ; Start 11/13/20 at 12:15; Stop 11/13/20 at 13:14; Status DC Labetalol HCl (Normodyne Iv Push) 10 mg PRN Q10MIN PRN IVP HYPERTENSION; Start 11/13/20 at 12:15 Nicardipine HCl 50 mg/Sodium Chloride 250 ml @ 25 mls/hr CONT PRN PRN IV HYPERTENSION; Start 11/13/20 at 12:15 Lorazepam (Ativan Inj) 2 mg 1X ONCE IVP Last administered on 11/13/20at 12:07; Start 11/13/20 at 12:15; Stop 11/13/20 at 12:16; Status DC Lorazepam (Ativan Inj) 2 mg STK-MED ONCE .ROUTE ; Start 11/13/20 at 12:05; Stop 11/13/20 at 12:06; Status DC Propofol 100 ml @ As Directed STK-MED ONCE IV ; Start 11/13/20 at 12:26; Stop 11/13/20 at 12:27; Status DC Piperacillin Sod/ Tazobactam Sod 3.375 gm/Sodium Chloride 50 ml @ 100 mls/hr 1X ONCE IV Last administered on 11/13/20at 13:12; Start 11/13/20 at 12:30; Stop 11/13/20 at 12:59; Status DC Vancomycin HCl 1.5 gm/Sodium Chloride 500 ml @ 250 mls/hr 1X ONCE IV Last administered on 11/13/20at 15:46; Start 11/13/20 at 13:00; Stop 11/13/20 at 14:59; Status DC Etomidate (Amidate) 20 mg 1X ONCE IV Last administered on 11/13/20at 12:21; Start 11/13/20 at 12:30; Stop 11/13/20 at 12:31; Status DC Succinylcholine Chloride (Anectine) 100 mg 1X ONCE IV Last administered on 11/13/20at 12:21; Start 11/13/20 at 12:30; Stop 11/13/20 at 12:31; Status DC Ketorolac Tromethamine (Toradol 15mg Vial) 15 mg 1X ONCE IVP Last administered on 11/13/20at 13:11; Start 11/13/20 at 12:30; Stop 11/13/20 at 12:44; Status DC Propofol 100 ml @ 2.55 mls/hr CONT PRN IV PER PROTOCOL Last administered on 11/13/20at 12:35; Start 11/13/20 at 12:30; Stop 11/14/20 at 11:24; Status DC Iohexol (Omnipaque 300 Mg/ml) 75 ml 1X ONCE IV Last administered on 11/13/20at 13:45; Start 11/13/20 at 13:45; Stop 11/13/20 at 13:46; Status DC Norepinephrine Bitartrate 8 mg/ Dextrose 258 ml @ 16.448 mls/ hr 1X ONCE IV Last administered on 11/13/20at 13:48; Start 11/13/20 at 13:45; Stop 11/14/20 at 05:26; Status DC Midazolam HCl 50 mg/Sodium Chloride 50 ml @ 0 mls/hr 1X ONCE IV Last administered on 11/13/20at 13:49; Start 11/13/20 at 13:45; Stop 11/13/20 at 13:46; Status DC Sennosides (Senna) 17.2 mg PRN BID PRN PO CONSTIPATION, 2ND CHOICE; Start 11/13/20 at 13:45 Docusate Sodium (Colace) 100 mg PRN DAILY PRN PO HARD STOOLS; Start 11/13/20 at 13:45 Ondansetron HCl (Zofran) 4 mg PRN Q6HRS PRN IVP NAUSEA/VOMITING; Start 11/13/20 at 13:45 Dextrose (Dextrose 50%-Water Syringe) 12.5 gm PRN Q15MIN PRN IV SEE COMMENTS; Start 11/13/20 at 13:45 Sodium Chloride 1,000 ml @ 100 mls/hr Q10H IV Last administered on 11/17/20at 04:19; Start 11/13/20 at 13:45; Stop 11/17/20 at 11:23; Status DC Acetaminophen (Tylenol) 650 mg PRN Q4HRS PRN PO TEMP OVER 100.4F OR MILD PAIN; Start 11/13/20 at 13:45; Stop 11/14/20 at 12:04; Status DC Enoxaparin Sodium (Lovenox 40mg Syringe) 40 mg Q24H SQ Last administered on 11/16/20at 13:46; Start 11/13/20 at 14:00 Pantoprazole Sodium (PROTONIX VIAL for IV PUSH) 40 mg DAILYAC IVP Last administered on 11/17/20at 08:53; Start 11/14/20 at 07:30 Sodium Chloride 1,000 ml @ 1,000 mls/hr 1X ONCE IV Last administered on 11/13/20at 12:30; Start 11/13/20 at 14:00; Stop 11/13/20 at 14:59; Status DC Sodium Chloride 1,000 ml @ 1,000 mls/hr 1X ONCE IV Last administered on 11/13/20at 14:00; Start 11/13/20 at 14:00; Stop 11/13/20 at 14:59; Status DC Ondansetron HCl (Zofran) 4 mg PRN Q8HRS PRN IV NAUSEA/VOMITING; Start 11/13/20 at 15:15; Stop 11/14/20 at 08:06; Status DC Morphine Sulfate (Morphine Sulfate) 4 mg PRN Q2HR PRN IV PAIN; Start 11/13/20 at 15:15; Stop 11/14/20 at 15:14; Status DC Metronidazole 100 ml @ 100 mls/hr Q12HR IV Last administered on 11/15/20at 07:22; Start 11/13/20 at 19:00; Stop 11/15/20 at 11:33; Status DC Cefepime HCl (Maxipime) 2 gm Q24H IVP Last administered on 11/14/20at 16:34; Start 11/13/20 at 17:00; Stop 11/15/20 at 11:33; Status DC Midazolam HCl 100 ml @ 1 mls/hr CONT PRN IV SEE I/O RECORD; Start 11/13/20 at 19:30; Stop 11/17/20 at 10:02; Status DC Fentanyl Citrate 30 ml @ 0 mls/hr CONT PRN IV SEE PROTOCOL; Start 11/13/20 at 19:30; Stop 11/17/20 at 10:02; Status DC Daptomycin 480 mg/ Sodium Chloride 50 ml @ 100 mls/hr Q24H IV Last administered on 11/17/20at 09:44; Start 11/14/20 at 10:00; Stop 11/17/20 at 12:40; Status DC Propofol 100 ml @ 2.322 mls/ hr CONT PRN IV PER PROTOCOL Last administered on 11/17/20at 04:19; Start 11/14/20 at 11:30; Stop 11/17/20 at 10:03; Status DC Acetaminophen (Tylenol) 650 mg PRN Q4HRS PRN PO TEMP OVER 100.4F OR MILD PAIN; Start 11/14/20 at 12:00 Haloperidol (Haldol) 4 mg BID PO Last administered on 11/17/20at 10:14; Start 11/14/20 at 12:30 Polyethylene Glycol (miraLAX PACKET) 17 gm PRN DAILY PRN PO CONSTIPATION, 1ST CHOICE; Start 11/14/20 at 12:00 Benztropine Mesylate (Cogentin) 0.5 mg BID PO Last administered on 11/17/20 08:52; Start 11/14/20 at 12:30 Hydrochlorothiazide (Microzide) 12.5 mg DAILY PO Last administered on 11/17/20 08:52; Start 11/14/20 at 12:30 Quetiapine Fumarate (SEROquel) 400 mg QHS PO Last administered on 11/16/20 21:23; Start 11/14/20 at 21:00 Valproic Acid (Depakene) 500 mg BID PO Last administered on 11/15/20 20:28; Start 11/14/20 at 12:30; Stop 11/16/20 at 09:47; Status DC Levetiracetam 500 mg/Dextrose 105 ml @ 420 mls/hr Q12HR IV Last administered on 11/17/20 08:52; Start 11/14/20 at 12:45 Lorazepam (Ativan Inj) 2 mg PRN Q4HRS PRN IVP ANXIETY / AGITATION Last administered on 11/16/20 09:57; Start 11/14/20 at 13:15 Micafungin Sodium 100 mg/Dextrose 100 ml @ 100 mls/hr Q24H IV Last administered on 11/17/20 11:47; Start 11/15/20 at 12:00 Piperacillin Sod/ Tazobactam Sod 3.375 gm/Sodium Chloride 50 ml @ 100 mls/hr Q6HRS IV Last administered on 11/17/20 11:47; Start 11/15/20 at 12:00 Valproic Acid (Depakene) 500 mg BID PEG Last administered on 11/17/20 08:52; Start 11/16/20 at 10:00 Potassium Bicarbonate (Potassium Effervescent Tablet) 40 meq 1X ONCE PO Last administered on 11/16/20 10:35; Start 11/16/20 at 10:00; Stop 11/16/20 at 10:01; Status DC Scopolamine (Transderm-Scop) 1 patch Q3DAYS TD Last administered on 11/16/20 10:35; Start 11/16/20 at 11:00 Amino Acids/ Glycerin/ Electrolytes 1,000 ml @ 80 mls/hr [id number] IV Last administered on 11/17/20at 11:46; Start 11/17/20 at 11:30 Active Scripts Active Tylenol (Acetaminophen) 325 Mg Tablet 650 Mg PO PRN Q4HRS PRN 30 Days Reported Seroquel (Quetiapine Fumarate) 400 Mg Tablet 2 Tab PO QHS Valproic Acid (Valproate Sodium) 500 Mg/10 Ml Solution 500 Mg PO BID Lisinopril 20 Mg Tablet 1 Tab PO DAILY Hydrochlorothiazide Tablet (Hydrochlorothiazide) 12.5 Mg Tablet 12.5 Mg PO DAILY Haloperidol 2 Mg Tablet 2 Tab PO BID Benztropine Mesylate 0.5 Mg Tablet 1 Tab PO BID Miralax (Polyethylene Glycol 3350) 17 Gm Powd.pack 1 Packet PO PRN DAILY PRN 2 Days dissolve in water Vitals/I & O Vital Sign - Last 24 Hours 11/16/20 11/16/20 11/16/20 11/16/20 13:00 14:00 15:00 15:35 Pulse 60 62 65 Resp 14 14 14 B/P (MAP) 111/75 (87) 119/81 (94) 122/84 (97) Pulse Ox 100 100 100 100 O2 Delivery Ventilator Ventilator Ventilator Ventilator 11/16/20 11/16/20 11/16/20 11/16/20 16:00 16:00 17:00 17:07 Temp 97.2 97.2 Pulse 53 52 Resp 14 14 B/P (MAP) 135/85 (102) 146/86 (106) Pulse Ox 100 100 100 O2 Delivery Mechanical Ventilator Ventilator Ventilator Ventilator 11/16/20 11/16/20 11/16/20 11/16/20 18:00 19:00 20:00 20:00 Temp 97.5 97.5 Pulse 59 58 63 Resp 14 14 14 B/P (MAP) 146/94 (111) 145/92 (109) 152/94 (113) Pulse Ox 100 100 100 100 O2 Delivery Ventilator Ventilator Ventilator Ventilator 11/16/20 11/16/20 11/16/20 11/16/20 20:00 21:00 22:00 23:00 Pulse 68 73 69 Resp 14 14 14 B/P (MAP) 151/97 (115) 114/74 (87) 104/59 (74) Pulse Ox 100 100 100 O2 Delivery Mechanical Ventilator Ventilator Ventilator Ventilator 4/29/11/17/20 11/17/20 11/17/20 00:00 00:00 00:30 01:00 Pulse 59 60 Resp 14 14 B/P (MAP) 84/50 (61) 97/59 (72) Pulse Ox 100 100 100 O2 Delivery Ventilator Mechanical Ventilator Ventilator Ventilator 11/17/20 11/17/20 11/17/20 11/17/20 02:00 03:00 03:03 04:00 Pulse 58 56 Resp 14 14 B/P (MAP) 99/61 (74) 95/60 (72) Pulse Ox 100 100 100 O2 Delivery Ventilator Ventilator Ventilator Mechanical Ventilator 11/17/20 11/17/20 11/17/20 11/17/20 04:00 05:00 05:10 06:00 Temp 94.4 97.4 94.4 97.4 Pulse 53 58 77 Resp 14 14 14 B/P (MAP) 110/77 (88) 103/68 (80) 118/58 (78) Pulse Ox 100 100 100 100 O2 Delivery Ventilator Ventilator Ventilator Ventilator 11/17/20 11/17/20 11/17/20 11/17/20 07:00 08:00 08:00 08:24 Temp 97.6 97.6 Pulse 79 79 Resp 14 14 B/P (MAP) 119/64 (82) 111/67 (82) Pulse Ox 100 100 100 O2 Delivery Ventilator Mechanical Ventilator Ventilator Ventilator 11/17/20 11/17/20 11/17/20 11/17/20 09:00 09:43 10:00 11:00 Temp 98.9 98.9 Pulse 77 88 78 Resp 14 14 16 B/P (MAP) 114/66 (82) 131/75 (93) 139/85 (103) Pulse Ox 100 100 100 100 O2 Delivery Ventilator Ventilator Ventilator Nasal Cannula O2 Flow Rate 2.0 11/17/20 12:00 O2 Delivery Mechanical Ventilator Intake and Output 11/16/20 11/16/20 11/17/20 15:00 23:00 07:00 Intake Total 300 ml 2013.7 ml 1745.5 ml Output Total 350 ml 275 ml 485 ml Balance -50 ml 1738.7 ml 1260.5 ml Justicifation of Admission Dx: Justifications for Admission: Justification of Admission Dx: N/A GÓMEZ ROMERO MD Nov 17, 2020 12:55
--- NOTE | 2020-11-17 14:03 | PDOC ---
[employer] PROGRESS NOTE Date of Service DOS: DATE: 11/17/20 TIME: 14:02 Chief Complaint Chief Complaint Altered mental status, acute encephalopathy Seizure, disorder Acute respiratory failure History of schizophrenia. History of alcoholism. sepsis and bacteremia History of Present Illness History of Present Illness 11/17, extubated, now alert, doign well, his oldest sister was in room later and I discussed improvement and plan following bacteremia, better, he is alert, lethargic, could still be post-ictal from long repeated seizure activity 11/16 family in room, pt made DNR, will try to extubate soon, weaning vent OK he may have ongoing seizures per Neuro, 11/15/2020 Patient seen and examined Chart reviewed, spoke with nursing Currently sedated and vent weaning AC/500/14/30% on 5.0 PEEP 11/14/2020 Patient seen and examined Patient on ventilation and unconscious Stopped versaid, currently vent weaning Witnessed tremors of arms, possible seizure activity. Informed nursing and discussed starting ativan Current ventilation settings: A/C/16/500ml/40% with 5 PEEP HPI 11/13/2020 History obtained from ED physician Patient is a 64-year-old male with past medical history of alcohol dependence, anxiety, schizophrenia, hypertension who resides at [facility] who presents to the ED due to concern for altered mental status. According to the retirement patient was unresponsive and was altered from his baseline. In the ED patient required to be intubated due to possible seizure and for airway protection. No reported prior illness, changes or injury according to retirement report. Vitals/I&O Vitals/I&O: Vital Signs Date Time Temp Pulse Resp B/P (MAP) Pulse Ox O2 Delivery O2 Flow Rate FiO2 11/17/20 12:00 Mechanical Ventilator 11/17/20 12:00 71 16 145/85 (105) 100 2.0 11/17/20 10:00 98.9 98.9 I & O 11/16/20 11/16/20 11/17/20 15:00 23:00 07:00 Intake Total 300 ml 2013.7 ml 1745.5 ml Output Total 350 ml 275 ml 485 ml Balance -50 ml 1738.7 ml 1260.5 ml Physical Exam Physical Exam: CONSTITUTIONAL: Sleepy, opens eyes transiently HEENT: Normocephalic, atraumatic. OG tube in place. Oropharynx clear. Appears to have poor dentition. NECK: Supple. Left EJ present. LUNGS: Decreased breath sounds at the bases. HEART: S1, S2, without murmurs. ABDOMEN: Mildly distended. No guarding. Bowel sounds present. EXTREMITIES: No edema. DERM: Warm and dry. No generalized rash. NEUROLOGIC: Opens eyes transiently does not respond to any questions BACK: Reveals sacral wound, there is a thin layer of tissue over the bone, foul smelling drainage with wound VAC in place. General: Other (Unconscious with ventilator ) Heart: Regular rate Lungs: Clear Abdomen: Soft Extremities: No clubbing, Other (ichthyosis) Skin: No breakdown Labs Labs: Laboratory Tests Test 11/16/20 18:03 11/17/20 05:15 11/17/20 08:00 11/17/20 11:57 Glucose (Fingerstick) 85 mg/dL (70-99) 109 mg/dL (70-99) 127 mg/dL (70-99) O2 Saturation 98 % (92-99) Arterial Blood pH 7.51 (7.35-7.45) Arterial Blood pCO2 at Patient Temp 36 mmHg (35-46) Arterial Blood pO2 at Patient Temp 130 mmHg (65-108) Arterial Blood HCO3 28 mmol/L (21-28) Arterial Blood Base Excess 5 mmol/L (-3-3) FiO2 30% vent Assessment and Plan Assessmemt and Plan Problems Medical Problems: (1) Acute respiratory failure Status: Acute (2) Urinary tract infection Status: Acute Comment Review of Relevant I have reviewed the following items any (where applicable) has been applied. Medications: Current Medications Medications (Trade) Dose Ordered Sig/Jeffrey Route PRN Reason Start Time Stop Time Status Last Admin Dose Admin Amino Acids/ Glycerin/ Electrolytes 1,000 ml @ 80 mls/hr [id number] IV 11/17/20 11:30 11/17/20 11:46 Justifications for Admission Other Justification Septic shock, urosepsis, acute renal failure LEE TRAN MD Nov 17, 2020 14:03
[2020-11-17] MEDS: ENOXAPARIN 40 MG/0.4 ML SYRINGE. SQ SCH (14:32)
[2020-11-17] MEDS ORDERED: fentaNYL PF VIAL 100 MCG/2 ML VIAL IVP PRN (18:45)
[2020-11-17] MEDS: QUEtiapine 100 MG TABLET. PO SCH (20:40)
[2020-11-18] VITALS (13 sets, daily range): BP systolic 129–156; BP diastolic 69–96
--- NOTE | 2020-11-18 01:07 | NUR ---
Patient is somewhat conversational, stated his correct height when discussing basketball in a limited fashion, repeats himself with stuttering speech, appropriate responses to simple questions. Pt able to ask for simple needs and states he knows he is in the hospital, unable to define which one.
[2020-11-18] MEDS: PIPERACILLIN/TAZOBACTAM 3.375 GM in IV NORMAL SALINE 50ML 50 ML IV SCH (05:30)
[2020-11-18 05:34] LABS: CALCIUM 8.2 mg/dL (8.5-10.1); CREATININE 0.7 mg/dL (0.7-1.3); GFR 137.4
[2020-11-18 05:35] LABS: BASO # 0.1 x10^3/uL (0.0-0.2); BASO % 2 % (0-3); EOS # 0.2 x10^3/uL (0.0-0.7); EOS % 2 % (0-3); HEMATOCRIT 22.1 % (39.0-53.0); HEMOGLOBIN 7.2 g/dL (13.0-17.5); LYMPH # 1.9 x10^3/uL (1.0-4.8); LYMPH % 28 % (24-48); MEAN CORPUSCULAR HEMOGLOBIN 27 pg (25-35); MEAN CORPUSCULAR HGB CONC 33 g/dL (31-37); MEAN CORPUSCULAR VOLUME 83 fL (79-100); MONO # 0.9 x10^3/uL (0.0-1.1); MONO % 13 % (0-9); NEUT # 3.7 x10^3/uL (1.8-7.7); NEUT % 55 % (31-73); PLATELET COUNT 213 x10^3/uL (140-400); RED BLOOD COUNT 2.65 x10^6/uL (4.30-5.70); RED CELL DISTRIBUTION WIDTH 16.1 % (11.5-14.5); WHITE BLOOD COUNT 6.7 x10^3/uL (4.0-11.0)
--- NOTE | 2020-11-18 07:40 | PDOC ---
Infectious Disease Note Subjective: Subjective Patient more alert today On room air Denies any pain, nausea, vomiting, abdominal pain on room air Vital Signs: Vital Signs Vital Signs Date Time Temp Pulse Resp B/P (MAP) Pulse Ox O2 Delivery O2 Flow Rate FiO2 11/18/20 05:31 67 129/70 (89) 99 Room Air 11/17/20 23:00 97.0 16 97.0 11/17/20 20:31 2.0 Physical Exam: PHYSICAL EXAM CONSTITUTIONAL: Sleepy, opens eyes transiently HEENT: Normocephalic, atraumatic. OG tube in place. Oropharynx clear. Appears to have poor dentition. NECK: Supple. Left EJ present. LUNGS: Decreased breath sounds at the bases. HEART: S1, S2, without murmurs. ABDOMEN: Mildly distended. No guarding. Bowel sounds present. EXTREMITIES: No edema. DERM: Warm and dry. No generalized rash. NEUROLOGIC: Opens eyes transiently does not respond to any questions BACK: Reveals sacral wound, there is a thin layer of tissue over the bone, foul smelling drainage with wound VAC in place. Medications: Inpatient Meds: Medications reviewed. Labs: Lab Laboratory Tests Test 11/17/20 08:00 11/17/20 11:57 11/17/20 17:30 11/18/20 04:45 O2 Saturation 98 % (92-99) Arterial Blood pH 7.51 (7.35-7.45) Arterial Blood pCO2 at Patient Temp 36 mmHg (35-46) Arterial Blood pO2 at Patient Temp 130 mmHg (65-108) Arterial Blood HCO3 28 mmol/L (21-28) Arterial Blood Base Excess 5 mmol/L (-3-3) FiO2 30% vent Glucose (Fingerstick) 127 mg/dL (70-99) 112 mg/dL (70-99) White Blood Count 6.7 x10^3/uL (4.0-11.0) Red Blood Count 2.65 x10^6/uL (4.30-5.70) Hemoglobin 7.2 g/dL (13.0-17.5) Hematocrit 22.1 % (39.0-53.0) Mean Corpuscular Volume 83 fL (79-100) Mean Corpuscular Hemoglobin 27 pg (25-35) Mean Corpuscular Hemoglobin Concent 33 g/dL (31-37) Red Cell Distribution Width 16.1 % (11.5-14.5) Platelet Count 213 x10^3/uL (140-400) Neutrophils (%) (Auto) 55 % (31-73) Lymphocytes (%) (Auto) 28 % (24-48) Monocytes (%) (Auto) 13 % (0-9) Eosinophils (%) (Auto) 2 % (0-3) Basophils (%) (Auto) 2 % (0-3) Neutrophils # (Auto) 3.7 x10^3/uL (1.8-7.7) Lymphocytes # (Auto) 1.9 x10^3/uL (1.0-4.8) Monocytes # (Auto) 0.9 x10^3/uL (0.0-1.1) Eosinophils # (Auto) 0.2 x10^3/uL (0.0-0.7) Basophils # (Auto) 0.1 x10^3/uL (0.0-0.2) Sodium Level 144 mmol/L (136-145) Potassium Level 3.0 mmol/L (3.5-5.1) Chloride Level 108 mmol/L (98-107) Carbon Dioxide Level 29 mmol/L (21-32) Anion Gap 7 (6-14) Blood Urea Nitrogen 11 mg/dL (8-26) Creatinine 0.7 mg/dL (0.7-1.3) Estimated GFR (Cockcroft-Gault) 137.4 Glucose Level 97 mg/dL (70-99) Calcium Level 8.2 mg/dL (8.5-10.1) Magnesium Level 2.0 mg/dL (1.8-2.4) Objective: Assessment: 1. Fever. Resolved 2. Leukocytosis. 3. Sepsis. 4. Enterococcal bacteremia, 1 out of 4 bottles present on admission, 11/13/2020. Fungemia 1 out of 4 bottles present on admission 11/13/2020 5. Complicated urinary tract infection with hydronephrosis, right greater than left. Urine cultures contamination 6. Encephalopathy with seizure activity on EEG 7. Acute respiratory failure, status post intubation. 8. Decubitus ulcer with wound VAC in place. Enterococcus and Corynebacterium stratum on swab cultures 9. History of ETOH dependence. 10.History of schizophrenia 11.History of Anxiety Plan: Plan of Care Continue micafungin November 15 Change Zosyn to Unasyn Repeat blood cultures 11/15/2020, 11/16/2020 negative so far Follow up labs and cultures. Terrazas changed per nursing staff Wound VAC as directed. Offload. Continue supportive care. TRINI KAT MD Nov 18, 2020 07:40
[2020-11-18] MEDS: PANTOPRAZOLE IV PUSH 40 MG VIAL. IVP SCH (08:52)
[2020-11-18] MEDS: HALOPERIDOL LACTATE 5 MG/ML VIAL. IVP SCH (08:55)
[2020-11-18] MEDS: levETIRAcetam 500 MG in IV DEXTROSE 5% 100ML 100 ML IV SCH (08:58)
[2020-11-18] MEDS: hydroCHLOROthiazide 12.5 MG CAPSULE PO SCH (09:00)
[2020-11-18] MEDS: BENZTROPINE MESYLATE 1 MG TABLET. PO SCH ×2 (09:00→23:09)
[2020-11-18] MEDS: VALPROIC ACID (AS SODIUM SALT) 250 MG/5 ML SOLUTION. PEG SCH (09:00)
--- NOTE | 2020-11-18 09:57 | PDOC ---
PULMONARY PROGRESS NOTES DATE: 11/18/20 TIME: 09:57 Subjective Patient was extubated on 11/17/2020 now on room air Further seizure activity Afebrile No overnight concerns from nursing Vitals Vital Signs Date Time Temp Pulse Resp B/P (MAP) Pulse Ox O2 Delivery O2 Flow Rate FiO2 11/18/20 08:50 97.9 57 14 155/90 (111) 100 Room Air 97.9 11/17/20 20:31 2.0 ROS: No Nausea, No Chest Pain, No Abdominal Pain, No Increase Cough General: Alert Lungs: Clear Cardiovascular: S1 Abdomen: Soft Extremities: No Edema Skin: Warm, Dry, Other (wound to coccyx with wound VAC) Labs Laboratory Tests Test 11/16/20 11:41 11/16/20 18:03 11/17/20 05:15 11/17/20 08:00 Glucose (Fingerstick) 124 mg/dL (70-99) 85 mg/dL (70-99) 109 mg/dL (70-99) O2 Saturation 98 % (92-99) Arterial Blood pH 7.51 (7.35-7.45) Arterial Blood pCO2 at Patient Temp 36 mmHg (35-46) Arterial Blood pO2 at Patient Temp 130 mmHg (65-108) Arterial Blood HCO3 28 mmol/L (21-28) Arterial Blood Base Excess 5 mmol/L (-3-3) FiO2 30% vent Test 11/17/20 11:57 11/17/20 17:30 11/18/20 04:45 Glucose (Fingerstick) 127 mg/dL (70-99) 112 mg/dL (70-99) White Blood Count 6.7 x10^3/uL (4.0-11.0) Red Blood Count 2.65 x10^6/uL (4.30-5.70) Hemoglobin 7.2 g/dL (13.0-17.5) Hematocrit 22.1 % (39.0-53.0) Mean Corpuscular Volume 83 fL (79-100) Mean Corpuscular Hemoglobin 27 pg (25-35) Mean Corpuscular Hemoglobin Concent 33 g/dL (31-37) Red Cell Distribution Width 16.1 % (11.5-14.5) Platelet Count 213 x10^3/uL (140-400) Neutrophils (%) (Auto) 55 % (31-73) Lymphocytes (%) (Auto) 28 % (24-48) Monocytes (%) (Auto) 13 % (0-9) Eosinophils (%) (Auto) 2 % (0-3) Basophils (%) (Auto) 2 % (0-3) Neutrophils # (Auto) 3.7 x10^3/uL (1.8-7.7) Lymphocytes # (Auto) 1.9 x10^3/uL (1.0-4.8) Monocytes # (Auto) 0.9 x10^3/uL (0.0-1.1) Eosinophils # (Auto) 0.2 x10^3/uL (0.0-0.7) Basophils # (Auto) 0.1 x10^3/uL (0.0-0.2) Sodium Level 144 mmol/L (136-145) Potassium Level 3.0 mmol/L (3.5-5.1) Chloride Level 108 mmol/L (98-107) Carbon Dioxide Level 29 mmol/L (21-32) Anion Gap 7 (6-14) Blood Urea Nitrogen 11 mg/dL (8-26) Creatinine 0.7 mg/dL (0.7-1.3) Estimated GFR (Cockcroft-Gault) 137.4 Glucose Level 97 mg/dL (70-99) Calcium Level 8.2 mg/dL (8.5-10.1) Magnesium Level 2.0 mg/dL (1.8-2.4) Laboratory Tests Test 11/17/20 11:57 11/17/20 17:30 11/18/20 04:45 Glucose (Fingerstick) 127 mg/dL (70-99) 112 mg/dL (70-99) White Blood Count 6.7 x10^3/uL (4.0-11.0) Red Blood Count 2.65 x10^6/uL (4.30-5.70) Hemoglobin 7.2 g/dL (13.0-17.5) Hematocrit 22.1 % (39.0-53.0) Mean Corpuscular Volume 83 fL (79-100) Mean Corpuscular Hemoglobin 27 pg (25-35) Mean Corpuscular Hemoglobin Concent 33 g/dL (31-37) Red Cell Distribution Width 16.1 % (11.5-14.5) Platelet Count 213 x10^3/uL (140-400) Neutrophils (%) (Auto) 55 % (31-73) Lymphocytes (%) (Auto) 28 % (24-48) Monocytes (%) (Auto) 13 % (0-9) Eosinophils (%) (Auto) 2 % (0-3) Basophils (%) (Auto) 2 % (0-3) Neutrophils # (Auto) 3.7 x10^3/uL (1.8-7.7) Lymphocytes # (Auto) 1.9 x10^3/uL (1.0-4.8) Monocytes # (Auto) 0.9 x10^3/uL (0.0-1.1) Eosinophils # (Auto) 0.2 x10^3/uL (0.0-0.7) Basophils # (Auto) 0.1 x10^3/uL (0.0-0.2) Sodium Level 144 mmol/L (136-145) Potassium Level 3.0 mmol/L (3.5-5.1) Chloride Level 108 mmol/L (98-107) Carbon Dioxide Level 29 mmol/L (21-32) Anion Gap 7 (6-14) Blood Urea Nitrogen 11 mg/dL (8-26) Creatinine 0.7 mg/dL (0.7-1.3) Estimated GFR (Cockcroft-Gault) 137.4 Glucose Level 97 mg/dL (70-99) Calcium Level 8.2 mg/dL (8.5-10.1) Magnesium Level 2.0 mg/dL (1.8-2.4) Medications Active Scripts Medications Dose Route/Sig Max Daily Dose Days Date Category Dose Instructions Seroquel (Quetiapine Fumarate) 400 Mg Tablet 2 Tab PO QHS 11/14/20 Reported Valproic Acid (Valproate Sodium) 500 Mg/10 Ml Solution 500 Mg PO BID 11/14/20 Reported Lisinopril 20 Mg Tablet 1 Tab PO DAILY 09/25/20 Reported Hydrochlorothiazide Tablet (Hydrochlorothiazide) 12.5 Mg Tablet 12.5 Mg PO DAILY 09/25/20 Reported Haloperidol 2 Mg Tablet 2 Tab PO BID 09/25/20 Reported Benztropine Mesylate 0.5 Mg Tablet 1 Tab PO BID 09/25/20 Reported Miralax (Polyethylene Glycol 3350) 17 Gm Powd.pack 1 Packet PO PRN DAILY PRN 2 09/25/20 Reported dissolve in water Tylenol (Acetaminophen) 325 Mg Tablet 650 Mg PO PRN Q4HRS PRN 30 08/03/20 Rx Impression . IMPRESSION: 1. Acute respiratory failure secondary to encephalopathy 2/2 seizure. The patient was intubated for airway protection. Recurrent seizures, --now extubated 2. Metabolic encephalopathy 3. No definite infiltrate seen on the chest x-ray. 4. Adequate gas exchange on ABGs. 5. History of schizophrenia. 6. History of alcoholism. 7. Enterococcus bacteremia Plan . Updated 11/18 Continue supplemental oxygen as needed, currently on room air Follow neurology recs-- EEG showed seizure activity continue AEM/Keppra seizure precautions Continue antibiotics per Infectious Disease-- Decubitus ulcer with wound VAC in place. Enterococcus and Corynebacterium stratum on swab cultures--repeat blood cultures no growth to date Physical therapy/Occupational Therapy/speech therapy Continue PPN for nutritional support DVT/GI PPX Plan to proceed with palliative care if patient continues to have seizures Okay for patient to move out of the intensive care unit today if okay with other consultants Pt. is DNR/DNI Discussed with RN Updated 11/17 Continue vent support currently on 30% and PEEP of 5, recommend palliative extubation at this time D/W sister failed CPAP due to seizure on 11/16 ABG and CXR reviewed--no changes Follow neurology recs-- EEG showed seizure activity continue AEM/Keppra seizure precautions Continue antibiotics per Infectious Disease-- follow cultures positive for Enterococcus bacteremia Continue TF for nutritional support DVT/GI PPX D/W sister (DPOA) she agrees to palliative extubation and if he has additional seizures will proceed with comfort measures including morphine gtt critical care time 30 minutes including review of the chart, imaging studies and decision making and making a plan. Pt. is now DNR Updated 11/16 D/W family at bed side. They agree with DNR once extubated failed CPAP due to seizure Continue vent support currently on 16/500/5/40% ABG and CXR reviewed-- Hold further PS trial today 2/2 seizure activity per neuro Follow neurology recs-- EEG showed seizure activity continue AEM/Keppra seizure precautions Continue antibiotics per Infectious Disease-- follow cultures start TF for nutritional support DVT/GI PPX Enterococcus bacteremia/ Abx per ID critical care time 30 minutes including review of the chart, imaging studies and decision making and making a plan. Updated 11/15 Continue vent support currently on 16/500/5/40% ABG and CXR reviewed-- reduce rate to 14 and 30% Hold PS trial today 2/2 seizure activity per neuro Follow neurology recs-- EEG showed seizure activity continue AEM/Keppra seizure precautions Continue antibiotics per Infectious Disease-- follow cultures start TF for nutritional support DVT/GI PPX Enterococcus bacteremia/ Abx per ID critical care time 30 minutes including review of the chart, imaging studies and decision making and making a plan. 11/14 RECOMMENDATIONS: 1. I have discussed with RN and RT. We will stop sedation, assess his mental status. 2. Once the patient is fully awake, we will place him on a spontaneous breathing trial, and likely extubation in the next 24 hours or even less. 3. Continue antibiotics per Infectious Disease. 4. Lovenox for DVT prophylaxis. 5. Further recommendations to follow. Total critical care time 33 minutes including review of the chart, imaging studies and decision making and making a plan. ZACHARY GARCIA MD Nov 18, 2020 09:57
--- NOTE | 2020-11-18 10:24 | PDOC ---
PROGRESS NOTES Date of Service DATE: 11/18/20 TIME: 10:22 Assessment Problems Medical Problems: (1) Acute respiratory failure Status: Acute (2) Urinary tract infection Status: Acute Drug-induced parkinsonism EEG, 11/15, shows intermittent bilateral periodic lateralizing epileptiform discharges. I suspect that he had a respiratory event and was found hypoxic cau sing anoxic encephalopathy. No clinical seizures since 11/16 Possible stroke symptoms earlier, nonfocal exam now with exam of course limited by his sedation. History of alcoholism, schizophrenia, other psychiatric disease Fever, leukocytosis, sepsis, gram-positive cocci bacteremia, urinary tract infection with hydronephrosis, respiratory failure, decubitus ulcer with wound VAC Extubated 11/16, is DO NOT RESUSCITATE Plan Depakene and levetiracetam Hold on brain MRI Overall status is very poor, prognosis is poor. Subjective No complaints Objective Vital Signs Date Time Temp Pulse Resp B/P (MAP) Pulse Ox O2 Delivery O2 Flow Rate FiO2 11/18/20 08:50 97.9 57 14 155/90 (111) 100 Room Air 97.9 11/17/20 20:31 2.0 Intake and Output 11/18/20 07:00 Intake Total 2964.9 ml Output Total 1785 ml Balance 1179.9 ml Intake IV Total 2417.9 ml Tube Feeding 397 ml Other 150 ml Output Urine Total 1785 ml PHYSICAL EXAM Tells me his name, does not know date or location, does not follow commands PERRL. EOMI. CN: no focal findings. Muscle tone: normal. Muscle strength: 2-3/5 DTR: 1+ Plantar reflex: Silent Gait: not examined in bed. Sensory exam: Not cooperative Cerebellar: Not cooperative Coarse rest tremor Review of Relevant I have reviewed the following items any (where applicable) has been applied. Labs Laboratory Tests Test 11/16/20 11:41 11/16/20 18:03 11/17/20 05:15 11/17/20 08:00 Glucose (Fingerstick) 124 mg/dL (70-99) 85 mg/dL (70-99) 109 mg/dL (70-99) O2 Saturation 98 % (92-99) Arterial Blood pH 7.51 (7.35-7.45) Arterial Blood pCO2 at Patient Temp 36 mmHg (35-46) Arterial Blood pO2 at Patient Temp 130 mmHg (65-108) Arterial Blood HCO3 28 mmol/L (21-28) Arterial Blood Base Excess 5 mmol/L (-3-3) FiO2 30% vent Test 11/17/20 11:57 11/17/20 17:30 11/18/20 04:45 Glucose (Fingerstick) 127 mg/dL (70-99) 112 mg/dL (70-99) White Blood Count 6.7 x10^3/uL (4.0-11.0) Red Blood Count 2.65 x10^6/uL (4.30-5.70) Hemoglobin 7.2 g/dL (13.0-17.5) Hematocrit 22.1 % (39.0-53.0) Mean Corpuscular Volume 83 fL (79-100) Mean Corpuscular Hemoglobin 27 pg (25-35) Mean Corpuscular Hemoglobin Concent 33 g/dL (31-37) Red Cell Distribution Width 16.1 % (11.5-14.5) Platelet Count 213 x10^3/uL (140-400) Neutrophils (%) (Auto) 55 % (31-73) Lymphocytes (%) (Auto) 28 % (24-48) Monocytes (%) (Auto) 13 % (0-9) Eosinophils (%) (Auto) 2 % (0-3) Basophils (%) (Auto) 2 % (0-3) Neutrophils # (Auto) 3.7 x10^3/uL (1.8-7.7) Lymphocytes # (Auto) 1.9 x10^3/uL (1.0-4.8) Monocytes # (Auto) 0.9 x10^3/uL (0.0-1.1) Eosinophils # (Auto) 0.2 x10^3/uL (0.0-0.7) Basophils # (Auto) 0.1 x10^3/uL (0.0-0.2) Sodium Level 144 mmol/L (136-145) Potassium Level 3.0 mmol/L (3.5-5.1) Chloride Level 108 mmol/L (98-107) Carbon Dioxide Level 29 mmol/L (21-32) Anion Gap 7 (6-14) Blood Urea Nitrogen 11 mg/dL (8-26) Creatinine 0.7 mg/dL (0.7-1.3) Estimated GFR (Cockcroft-Gault) 137.4 Glucose Level 97 mg/dL (70-99) Calcium Level 8.2 mg/dL (8.5-10.1) Magnesium Level 2.0 mg/dL (1.8-2.4) Laboratory Tests Test 11/17/20 11:57 11/17/20 17:30 11/18/20 04:45 Glucose (Fingerstick) 127 mg/dL (70-99) 112 mg/dL (70-99) White Blood Count 6.7 x10^3/uL (4.0-11.0) Red Blood Count 2.65 x10^6/uL (4.30-5.70) Hemoglobin 7.2 g/dL (13.0-17.5) Hematocrit 22.1 % (39.0-53.0) Mean Corpuscular Volume 83 fL (79-100) Mean Corpuscular Hemoglobin 27 pg (25-35) Mean Corpuscular Hemoglobin Concent 33 g/dL (31-37) Red Cell Distribution Width 16.1 % (11.5-14.5) Platelet Count 213 x10^3/uL (140-400) Neutrophils (%) (Auto) 55 % (31-73) Lymphocytes (%) (Auto) 28 % (24-48) Monocytes (%) (Auto) 13 % (0-9) Eosinophils (%) (Auto) 2 % (0-3) Basophils (%) (Auto) 2 % (0-3) Neutrophils # (Auto) 3.7 x10^3/uL (1.8-7.7) Lymphocytes # (Auto) 1.9 x10^3/uL (1.0-4.8) Monocytes # (Auto) 0.9 x10^3/uL (0.0-1.1) Eosinophils # (Auto) 0.2 x10^3/uL (0.0-0.7) Basophils # (Auto) 0.1 x10^3/uL (0.0-0.2) Sodium Level 144 mmol/L (136-145) Potassium Level 3.0 mmol/L (3.5-5.1) Chloride Level 108 mmol/L (98-107) Carbon Dioxide Level 29 mmol/L (21-32) Anion Gap 7 (6-14) Blood Urea Nitrogen 11 mg/dL (8-26) Creatinine 0.7 mg/dL (0.7-1.3) Estimated GFR (Cockcroft-Gault) 137.4 Glucose Level 97 mg/dL (70-99) Calcium Level 8.2 mg/dL (8.5-10.1) Magnesium Level 2.0 mg/dL (1.8-2.4) Microbiology 11/16/20 Blood Culture - Preliminary, Resulted NO GROWTH AFTER 2 DAYS 11/14/20 Gram Stain - Final, Resulted 11/14/20 Aerobic and Anaerobic Culture - Preliminary, Resulted 11/14/20 Antimicrobic Susceptibility - Preliminary, Resulted 11/13/20 Urine Culture - Final, Complete Medications Current Medications Sodium Chloride 50 ml @ 50 mls/hr 1X ONCE IV ; Start 11/13/20 at 12:15; Stop 11/13/20 at 13:14; Status DC Labetalol HCl (Normodyne Iv Push) 10 mg PRN Q10MIN PRN IVP HYPERTENSION; Start 11/13/20 at 12:15 Nicardipine HCl 50 mg/Sodium Chloride 250 ml @ 25 mls/hr CONT PRN PRN IV HYPERTENSION; Start 11/13/20 at 12:15 Lorazepam (Ativan Inj) 2 mg 1X ONCE IVP Last administered on 11/13/20at 12:07; Start 11/13/20 at 12:15; Stop 11/13/20 at 12:16; Status DC Lorazepam (Ativan Inj) 2 mg STK-MED ONCE .ROUTE ; Start 11/13/20 at 12:05; Stop 11/13/20 at 12:06; Status DC Propofol 100 ml @ As Directed STK-MED ONCE IV ; Start 11/13/20 at 12:26; Stop 11/13/20 at 12:27; Status DC Piperacillin Sod/ Tazobactam Sod 3.375 gm/Sodium Chloride 50 ml @ 100 mls/hr 1X ONCE IV Last administered on 11/13/20at 13:12; Start 11/13/20 at 12:30; Stop 11/13/20 at 12:59; Status DC Vancomycin HCl 1.5 gm/Sodium Chloride 500 ml @ 250 mls/hr 1X ONCE IV Last administered on 11/13/20at 15:46; Start 11/13/20 at 13:00; Stop 11/13/20 at 14:59; Status DC Etomidate (Amidate) 20 mg 1X ONCE IV Last administered on 11/13/20at 12:21; Start 11/13/20 at 12:30; Stop 11/13/20 at 12:31; Status DC Succinylcholine Chloride (Anectine) 100 mg 1X ONCE IV Last administered on 11/13/20at 12:21; Start 11/13/20 at 12:30; Stop 11/13/20 at 12:31; Status DC Ketorolac Tromethamine (Toradol 15mg Vial) 15 mg 1X ONCE IVP Last administered on 11/13/20at 13:11; Start 11/13/20 at 12:30; Stop 11/13/20 at 12:44; Status DC Propofol 100 ml @ 2.55 mls/hr CONT PRN IV PER PROTOCOL Last administered on 11/13/20at 12:35; Start 11/13/20 at 12:30; Stop 11/14/20 at 11:24; Status DC Iohexol (Omnipaque 300 Mg/ml) 75 ml 1X ONCE IV Last administered on 11/13/20at 13:45; Start 11/13/20 at 13:45; Stop 11/13/20 at 13:46; Status DC Norepinephrine Bitartrate 8 mg/ Dextrose 258 ml @ 16.448 mls/ hr 1X ONCE IV Last administered on 11/13/20at 13:48; Start 11/13/20 at 13:45; Stop 11/14/20 at 05:26; Status DC Midazolam HCl 50 mg/Sodium Chloride 50 ml @ 0 mls/hr 1X ONCE IV Last administered on 11/13/20at 13:49; Start 11/13/20 at 13:45; Stop 11/13/20 at 13:46; Status DC Sennosides (Senna) 17.2 mg PRN BID PRN PO CONSTIPATION, 2ND CHOICE; Start 11/13/20 at 13:45 Docusate Sodium (Colace) 100 mg PRN DAILY PRN PO HARD STOOLS; Start 11/13/20 at 13:45 Ondansetron HCl (Zofran) 4 mg PRN Q6HRS PRN IVP NAUSEA/VOMITING; Start 11/13/20 at 13:45 Dextrose (Dextrose 50%-Water Syringe) 12.5 gm PRN Q15MIN PRN IV SEE COMMENTS; Start 11/13/20 at 13:45 Sodium Chloride 1,000 ml @ 100 mls/hr Q10H IV Last administered on 11/17/20at 04:19; Start 11/13/20 at 13:45; Stop 11/17/20 at 11:23; Status DC Acetaminophen (Tylenol) 650 mg PRN Q4HRS PRN PO TEMP OVER 100.4F OR MILD PAIN; Start 11/13/20 at 13:45; Stop 11/14/20 at 12:04; Status DC Enoxaparin Sodium (Lovenox 40mg Syringe) 40 mg Q24H SQ Last administered on 11/17/20at 14:32; Start 11/13/20 at 14:00 Pantoprazole Sodium (PROTONIX VIAL for IV PUSH) 40 mg DAILYAC IVP Last adm inistered on 11/18/20at 08:52; Start 11/14/20 at 07:30 Sodium Chloride 1,000 ml @ 1,000 mls/hr 1X ONCE IV Last administered on 11/13/20at 12:30; Start 11/13/20 at 14:00; Stop 11/13/20 at 14:59; Status DC Sodium Chloride 1,000 ml @ 1,000 mls/hr 1X ONCE IV Last administered on 11/13/20at 14:00; Start 11/13/20 at 14:00; Stop 11/13/20 at 14:59; Status DC Ondansetron HCl (Zofran) 4 mg PRN Q8HRS PRN IV NAUSEA/VOMITING; Start 11/13/20 at 15:15; Stop 11/14/20 at 08:06; Status DC Morphine Sulfate (Morphine Sulfate) 4 mg PRN Q2HR PRN IV PAIN; Start 11/13/20 at 15:15; Stop 11/14/20 at 15:14; Status DC Metronidazole 100 ml @ 100 mls/hr Q12HR IV Last administered on 11/15/20at 07:22; Start 11/13/20 at 19:00; Stop 11/15/20 at 11:33; Status DC Cefepime HCl (Maxipime) 2 gm Q24H IVP Last administered on 11/14/20at 16:34; Start 11/13/20 at 17:00; Stop 11/15/20 at 11:33; Status DC Midazolam HCl 100 ml @ 1 mls/hr CONT PRN IV SEE I/O RECORD; Start 11/13/20 at 19:30; Stop 11/17/20 at 10:02; Status DC Fentanyl Citrate 30 ml @ 0 mls/hr CONT PRN IV SEE PROTOCOL; Start 11/13/20 at 19:30; Stop 11/17/20 at 10:02; Status DC Daptomycin 480 mg/ Sodium Chloride 50 ml @ 100 mls/hr Q24H IV Last administered on 11/17/20at 09:44; Start 11/14/20 at 10:00; Stop 11/17/20 at 12:40; Status DC Propofol 100 ml @ 2.322 mls/ hr CONT PRN IV PER PROTOCOL Last administered on 11/17/20at 04:19; Start 11/14/20 at 11:30; Stop 11/17/20 at 10:03; Status DC Acetaminophen (Tylenol) 650 mg PRN Q4HRS PRN PO TEMP OVER 100.4F OR MILD PAIN; Start 11/14/20 at 12:00 Haloperidol (Haldol) 4 mg BID PO Last administered on 11/17/20at 10:14; Start 11/14/20 at 12:30; Stop 11/17/20 at 21:39; Status DC Polyethylene Glycol (miraLAX PACKET) 17 gm PRN DAILY PRN PO CONSTIPATION, 1ST CHOICE; Start 11/14/20 at 12:00 Benztropine Mesylate (Cogentin) 0.5 mg BID PO Last administered on 11/17/20at 08:52; Start 11/14/20 at 12:30 Hydrochlorothiazide (Microzide) 12.5 mg DAILY PO Last administered on 11/17/20at 08:52; Start 11/14/20 at 12:30 Quetiapine Fumarate (SEROquel) 400 mg QHS PO Last administered on 11/16/20at 21:23; Start 11/14/20 at 21:00 Valproic Acid (Depakene) 500 mg BID PO Last administered on 11/15/20at 20:28; Start 11/14/20 at 12:30; Stop 11/16/20 at 09:47; Status DC Levetiracetam 500 mg/Dextrose 105 ml @ 420 mls/hr Q12HR IV Last administered on 11/18/20 08:58; Start 11/14/20 at 12:45 Lorazepam (Ativan Inj) 2 mg PRN Q4HRS PRN IVP ANXIETY / AGITATION Last administered on 11/16/20 09:57; Start 11/14/20 at 13:15 Micafungin Sodium 100 mg/Dextrose 100 ml @ 100 mls/hr Q24H IV Last administered on 11/17/20 11:47; Start 11/15/20 at 12:00 Piperacillin Sod/ Tazobactam Sod 3.375 gm/Sodium Chloride 50 ml @ 100 mls/hr Q6HRS IV Last administered on 11/18/20 05:30; Start 11/15/20 at 12:00; Stop 11/18/20 at 08:17; Status DC Valproic Acid (Depakene) 500 mg BID PEG Last administered on 11/17/20 08:52; Start 11/16/20 at 10:00 Potassium Bicarbonate (Potassium Effervescent Tablet) 40 meq 1X ONCE PO Last administered on 11/16/20 10:35; Start 11/16/20 at 10:00; Stop 11/16/20 at 10:01; Status DC Scopolamine (Transderm-Scop) 1 patch Q3DAYS TD Last administered on 11/16/20 10:35; Start 11/16/20 at 11:00 Amino Acids/ Glycerin/ Electrolytes 1,000 ml @ 80 mls/hr [id number] IV Last administered on 11/17/20at 22:14; Start 11/17/20 at 11:30 Fentanyl Citrate (Fentanyl 2ml Vial) 25 mcg PRN Q4HRS PRN IVP MODERATE TO SEVERE PAIN Last administered on 11/17/20 18:44; Start 11/17/20 at 18:45 Haloperidol Lactate (Haldol Inj) 2 mg DAILY08 IVP Last administered on 11/18/20 08:55; Start 11/18/20 at 08:00 Ampicillin Sodium/ Sulbactam Sodium 3 gm/Sodium Chloride 100 ml @ 200 mls/hr Q6HRS IV ; Start 11/18/20 at 12:00 Active Scripts Active Tylenol (Acetaminophen) 325 Mg Tablet 650 Mg PO PRN Q4HRS PRN 30 Days Reported Seroquel (Quetiapine Fumarate) 400 Mg Tablet 2 Tab PO QHS Valproic Acid (Valproate Sodium) 500 Mg/10 Ml Solution 500 Mg PO BID Lisinopril 20 Mg Tablet 1 Tab PO DAILY Hydrochlorothiazide Tablet (Hydrochlorothiazide) 12.5 Mg Tablet 12.5 Mg PO DAILY Haloperidol 2 Mg Tablet 2 Tab PO BID Benztropine Mesylate 0.5 Mg Tablet 1 Tab PO BID Miralax (Polyethylene Glycol 3350) 17 Gm Powd.pack 1 Packet PO PRN DAILY PRN 2 Days dissolve in water Vitals/I & O Vital Sign - Last 24 Hours 11/17/20 11/17/20 11/17/20 11/17/20 11:00 12:00 12:00 13:00 Pulse 78 71 76 Resp 16 16 16 B/P (MAP) 139/85 (103) 145/85 (105) 151/86 (107) Pulse Ox 100 100 100 O2 Delivery Nasal Cannula Nasal Cannula Nasal Cannula Nasal Cannula O2 Flow Rate 2.0 2.0 2.0 2.0 11/17/20 11/17/20 11/17/20 11/17/20 14:00 15:00 15:20 16:00 Temp 98.2 98.2 Pulse 72 79 Resp 16 16 B/P (MAP) 148/82 (104) 148/82 (104) Pulse Ox 100 100 O2 Delivery Nasal Cannula Nasal Cannula Nasal Cannula O2 Flow Rate 2.0 2.0 11/17/20 11/17/20 11/17/20 11/17/20 17:00 18:00 18:44 19:00 Temp 96.5 96.5 Pulse 70 74 76 Resp 16 16 19 B/P (MAP) 136/81 (99) 152/85 (107) 135/75 (95) Pulse Ox 100 100 100 100 O2 Delivery Nasal Cannula Nasal Cannula Nasal Cannula Nasal Cannula O2 Flow Rate 2.0 2.0 2.0 2.0 11/17/20 11/17/20 11/17/20 11/17/20 19:20 20:13 20:31 21:18 Pulse 77 88 Resp 18 18 16 B/P (MAP) 134/78 (96) 142/83 (102) Pulse Ox 100 100 100 O2 Delivery Nasal Cannula Nasal Cannula Nasal Cannula Room Air O2 Flow Rate 2.0 2.0 2.0 4/29/21 11/17/20 11/18/20 11/18/20 22:15 23:00 00:01 00:30 Temp 98.0 97.0 98.0 97.0 Pulse 67 63 58 Resp 16 16 B/P (MAP) 131/74 (93) 126/66 (86) 147/76 (99) Pulse Ox 100 99 100 O2 Delivery Room Air Room Air Room Air Room Air 11/18/20 11/18/20 11/18/20 11/18/20 01:30 02:30 03:30 04:00 Pulse 60 58 70 B/P (MAP) 143/78 (99) 131/74 (93) 136/75 (95) Pulse Ox 100 100 100 O2 Delivery Room Air Room Air Room Air Room Air 11/18/20 11/18/20 11/18/20 11/18/20 05:00 05:31 07:00 08:00 Pulse 79 67 63 60 Resp 14 B/P (MAP) 140/85 (103) 129/70 (89) 136/69 (91) 136/69 (91) Pulse Ox 100 99 99 100 O2 Delivery Room Air Room Air Room Air Room Air 11/18/20 08:50 Temp 97.9 97.9 Pulse 57 Resp 14 B/P (MAP) 155/90 (111) Pulse Ox 100 O2 Delivery Room Air Intake and Output 11/17/20 11/17/20 11/18/20 15:00 23:00 07:00 Intake Total 1159.9 ml 1805 ml Output Total 350 ml 785 ml 650 ml Balance 809.9 ml 1020 ml -650 ml Justicifation of Admission Dx: Justifications for Admission: Justification of Admission Dx: N/A GÓMEZ ROMERO MD Nov 18, 2020 10:24
[2020-11-18] MEDS: AMPICILLIN/SULBACTAM 3 GM in IV NORMAL SALINE 100ML 100 ML IV SCH ×2 (11:43→17:22)
[2020-11-18] MEDS: AMINO AC 3%/ELECTROLYTE/GLYCER 1,000 ML IV SCH (12:16)
[2020-11-18] MEDS: MICAFUNGIN 100 MG in IV DEXTROSE 5% 100ML 100 ML IV SCH (12:24)
--- NOTE | 2020-11-18 13:59 | PDOC ---
[employer] PROGRESS NOTE Date of Service DOS: DATE: 11/18/20 TIME: 13:56 Chief Complaint Chief Complaint Altered mental status, acute encephalopathy Seizure, disorder Acute respiratory failure History of schizophrenia. History of alcoholism. sepsis and bacteremia History of Present Illness History of Present Illness 11/18, better and better, will DC the [facility] may get out of ICU cont current start rehab will [facility] back to [facility], try OOB, then likely SNU to LTC 11/17, extubated, now alert, doign well, his oldest sister was in room later and I discussed improvement and plan following bacteremia, better, he is alert, lethargic, could still be post-ictal from long repeated seizure activity 11/16 family in room, pt made DNR, will try to extubate soon, weaning vent OK he may have ongoing seizures per Neuro, 11/15/2020 Patient seen and examined Chart reviewed, spoke with nursing Currently sedated and vent weaning AC/500/14/30% on 5.0 PEEP 11/14/2020 Patient seen and examined Patient on ventilation and unconscious Stopped versaid, currently vent weaning Witnessed tremors of arms, possible seizure activity. Informed nursing and discussed starting ativan Current ventilation settings: A/C/16/500ml/40% with 5 PEEP HPI 11/13/2020 History obtained from ED physician Patient is a 64-year-old male with past medical history of alcohol dependence, anxiety, schizophrenia, hypertension who resides at [facility] who presents to the ED due to concern for altered mental status. According to the [facility] patient was unresponsive and was altered from his baseline. In the ED patient required to be intubated due to possible seizure and for airway protection. No reported prior illness, changes or injury according to [facility] report. Vitals/I&O Vitals/I&O: Vital Signs Date Time Temp Pulse Resp B/P (MAP) Pulse Ox O2 Delivery O2 Flow Rate FiO2 11/18/20 11:08 54 14 147/80 (102) 100 Room Air 11/18/20 08:50 97.9 97.9 11/18/20 08:00 2.0 I & O 11/17/20 11/17/20 11/18/20 15:02 23:02 07:02 Intake Total 1159.9 ml 1805 ml Output Total 350 ml 785 ml 650 ml Balance 809.9 ml 1020 ml -650 ml Physical Exam Physical Exam: CONSTITUTIONAL: Sleepy, opens eyes transiently HEENT: Normocephalic, atraumatic. OG tube in place. Oropharynx clear. Appears to have poor dentition. NECK: Supple. Left EJ present. LUNGS: Decreased breath sounds at the bases. HEART: S1, S2, without murmurs. ABDOMEN: Mildly distended. No guarding. Bowel sounds present. EXTREMITIES: No edema. DERM: Warm and dry. No generalized rash. NEUROLOGIC: Opens eyes transiently does not respond to any questions BACK: Reveals sacral wound, there is a thin layer of tissue over the bone, foul smelling drainage with wound VAC in place. General: Other (Unconscious with ventilator ) Heart: Regular rate Lungs: Clear Abdomen: Soft Extremities: No clubbing, Other (ichthyosis) Skin: No breakdown Labs Labs: Laboratory Tests Test 11/17/20 17:30 11/18/20 04:45 Glucose (Fingerstick) 112 mg/dL (70-99) White Blood Count 6.7 x10^3/uL (4.0-11.0) Red Blood Count 2.65 x10^6/uL (4.30-5.70) Hemoglobin 7.2 g/dL (13.0-17.5) Hematocrit 22.1 % (39.0-53.0) Mean Corpuscular Volume 83 fL (79-100) Mean Corpuscular Hemoglobin 27 pg (25-35) Mean Corpuscular Hemoglobin Concent 33 g/dL (31-37) Red Cell Distribution Width 16.1 % (11.5-14.5) Platelet Count 213 x10^3/uL (140-400) Neutrophils (%) (Auto) 55 % (31-73) Lymphocytes (%) (Auto) 28 % (24-48) Monocytes (%) (Auto) 13 % (0-9) Eosinophils (%) (Auto) 2 % (0-3) Basophils (%) (Auto) 2 % (0-3) Neutrophils # (Auto) 3.7 x10^3/uL (1.8-7.7) Lymphocytes # (Auto) 1.9 x10^3/uL (1.0-4.8) Monocytes # (Auto) 0.9 x10^3/uL (0.0-1.1) Eosinophils # (Auto) 0.2 x10^3/uL (0.0-0.7) Basophils # (Auto) 0.1 x10^3/uL (0.0-0.2) Sodium Level 144 mmol/L (136-145) Potassium Level 3.0 mmol/L (3.5-5.1) Chloride Level 108 mmol/L (98-107) Carbon Dioxide Level 29 mmol/L (21-32) Anion Gap 7 (6-14) Blood Urea Nitrogen 11 mg/dL (8-26) Creatinine 0.7 mg/dL (0.7-1.3) Estimated GFR (Cockcroft-Gault) 137.4 Glucose Level 97 mg/dL (70-99) Calcium Level 8.2 mg/dL (8.5-10.1) Magnesium Level 2.0 mg/dL (1.8-2.4) Assessment and Plan Assessmemt and Plan Problems Medical Problems: (1) Acute respiratory failure Status: Acute (2) Urinary tract infection Status: Acute Comment Review of Relevant I have reviewed the following items any (where applicable) has been applied. Medications: Current Medications Medications (Trade) Dose Ordered Sig/Jeffrey Route PRN Reason Start Time Stop Time Status Last Admin Dose Admin Fentanyl Citrate (Fentanyl 2ml Vial) 25 mcg PRN Q4HRS PRN IVP MODERATE TO SEVERE PAIN 11/17/20 18:45 11/17/20 18:44 Haloperidol Lactate (Haldol Inj) 2 mg DAILY08 IVP 11/18/20 08:00 11/18/20 08:55 Ampicillin Sodium/ Sulbactam Sodium 3 gm/Sodium Chloride 100 ml @ 200 mls/hr Q6HRS IV 11/18/20 12:00 11/18/20 11:43 Justifications for Admission Other Justification Septic shock, urosepsis, acute renal failure LEE TRAN MD Nov 18, 2020 13:59
[2020-11-18] MEDS: ENOXAPARIN 40 MG/0.4 ML SYRINGE. SQ SCH (15:09)
--- NOTE | 2020-11-18 15:24 | NUR ---
SS following up with discharge planning. SS reviewed pt chart and discussed with pt RN. Pt is extubated and is currently on room air. Pt on IV Ampicillin, IV Micafungin, and PPN. PT/OT/ST ordered. Pt on PO diet. Pt is resident from [facility], ; fax [phone]. SS phoned and faxed clinical updates to [place]. SS will continue to follow for discharge planning.
--- NOTE | 2020-11-18 16:20 | NUR ---
Wound Care Wound Type/Assessment: Follow up for routine wound vac dressing change. One piece of black foam removed, cleansed. Wound bed clean with red granulation and exposed muscle, margins thickened and macerated. Packed with one piece of black foam and bridged to R lateral thigh. Good seal achieved. Veraflow settings at 15mL NS x3mins Q3H, suction @ 125mmhG continuous. Treatment Recommendations/Plan: Wound Care will follow while inpatient to manage wound vac dressings. L heel: Cover with dry foam for protection Education provided: Pt not appropriate for education due to mental status Offloading surface/device: Pt on ICU bed, turned with purple wedge to L side, heels floated with pillows Recommended Referrals/Tests: NA Discharge Recommendations for dressings: As above
[2020-11-18] MEDS: QUEtiapine 100 MG TABLET. PO SCH (23:08)
[2020-11-18] MEDS: VALPROIC ACID (AS SODIUM SALT) 250 MG/5 ML SOLUTION. PO SCH (23:08)
[2020-11-18] MEDS: levETIRAcetam 500 MG TABLET PO SCH (23:13)
[2020-11-19] MEDS: AMINO AC 3%/ELECTROLYTE/GLYCER 1,000 ML IV SCH ×2 (01:00→13:30)
[2020-11-19 03:00] VITALS: BP 135/81
[2020-11-19] MEDS: AMPICILLIN/SULBACTAM 3 GM in IV NORMAL SALINE 100ML 100 ML IV SCH ×4 (04:00→17:41)
[2020-11-19 07:00] VITALS: BP 118/95
--- NOTE | 2020-11-19 07:56 | PDOC ---
Infectious Disease Note Subjective: Subjective Patient transferred out of ICU to medical floor On room air Denies any pain, nausea, vomiting, abdominal pain Says feels "hungry" Vital Signs: Vital Signs Vital Signs Date Time Temp Pulse Resp B/P (MAP) Pulse Ox O2 Delivery O2 Flow Rate FiO2 11/19/20 03:00 97.9 80 18 135/81 (99) 95 Room Air 97.9 11/18/20 08:00 2.0 Physical Exam: PHYSICAL EXAM CONSTITUTIONAL: Sleepy, opens eyes transiently HEENT: Normocephalic, atraumatic. OG tube in place. Oropharynx clear. Appears to have poor dentition. NECK: Supple. Left EJ present. LUNGS: Decreased breath sounds at the bases. HEART: S1, S2, without murmurs. ABDOMEN: Mildly distended. No guarding. Bowel sounds present. EXTREMITIES: No edema. DERM: Warm and dry. No generalized rash. NEUROLOGIC: Opens eyes transiently does not respond to any questions BACK: Reveals sacral wound, there is a thin layer of tissue over the bone, foul smelling drainage with wound VAC in place. Medications: Inpatient Meds: Medications reviewed. Objective: Assessment: 1. Fever. Resolved 2. Leukocytosis. 3. Sepsis. 4. Enterococcal bacteremia, 1 out of 4 bottles present on admission, 11/13/2020. Lyndsay albicans fungemia 1 out of 4 bottles present on admission 11/13/2020 5. Complicated urinary tract infection with hydronephrosis, right greater than left. Urine cultures contamination 6. Encephalopathy ,Seizures 7. Acute respiratory failure, status post intubation. Now extubated 8. Chronic nonhealing decubitus ulcer with wound VAC in place. Enterococcus and Bacteroides, Corynebacterium stratum ,on swab cultures Corynebacterium likely colonization 9. History of ETOH dependence. 10.History of schizophrenia 11.History of Anxiety Plan: Plan of Care Continue micafungin November 15 Discussed with micro lab for susceptibilities for Lyndsay albicans on blood cu ltures Cont Unasyn, was on Zosyn Repeat blood cultures 11/15/2020, 11/16/2020 negative so far Follow up labs and cultures. Terrazas changed per nursing staff Wound VAC as directed. Offload. Continue supportive care. TRINI KAT MD November 19, 2020 07:56
[2020-11-19] MEDS: BENZTROPINE MESYLATE 1 MG TABLET. PO SCH ×2 (08:24→20:54)
[2020-11-19] MEDS: hydroCHLOROthiazide 12.5 MG CAPSULE PO SCH (08:24)
[2020-11-19] MEDS: ASCORBIC ACID 500 MG TABLET PO SCH (08:24)
[2020-11-19] MEDS: levETIRAcetam 500 MG TABLET PO SCH ×2 (08:24→20:54)
[2020-11-19] MEDS: SCOPOLAMINE 1.5MG PATCH. TD SCH (08:25)
[2020-11-19] MEDS: VALPROIC ACID (AS SODIUM SALT) 250 MG/5 ML SOLUTION. PO SCH ×2 (08:25→21:00)
[2020-11-19] MEDS: MULTIVITAMIN with MINERAL TABLET. PO SCH (08:25)
[2020-11-19] MEDS: PANTOPRAZOLE IV PUSH 40 MG VIAL. IVP SCH (08:26)
[2020-11-19] MEDS: HALOPERIDOL LACTATE 5 MG/ML VIAL. IVP SCH (08:26)
--- NOTE | 2020-11-19 10:22 | PDOC ---
PROGRESS NOTES Date of Service: DATE: 11/19/20 TIME: 10: Chief Complaint Chief Complaint Altered mental status, acute encephalopathy Seizure, disorder Acute respiratory failure History of schizophrenia. History of alcoholism. sepsis and bacteremia History of Present Illness History of Present Illness 11/19 better and better, DC [facility], NEEDED replaced today due to wounds, unable to use commode may get out of ICU cont current start [facility], then likely SNU to LTC 11/18, better and better, will DC the [facility] may get out of ICU cont current start rehab [facility], try OOB, then likely SNU to LTC 11/17, extubated, now alert, doign well, his oldest sister was in room later and I discussed improvement and plan following bacteremia, better, he is alert, lethargic, could still be post-ictal from long repeated seizure activity 11/16 family in room, pt made DNR, will try to extubate soon, weaning vent OK he may have ongoing seizures per Neuro, 11/15/2020 Patient seen and examined Chart reviewed, spoke with nursing Currently sedated and vent weaning AC/500/14/30% on 5.0 PEEP 11/14/2020 Patient seen and examined Patient on ventilation and unconscious Stopped versaid, currently vent weaning Witnessed tremors of arms, possible seizure activity. Informed nursing and discussed starting ativan Current ventilation settings: A/C/16/500ml/40% with 5 PEEP HPI 11/13/2020 History obtained from ED physician Patient is a 64-year-old male with past medical history of alcohol dependence, anxiety, schizophrenia, hypertension who resides at [facility] who presents to the ED due to concern for altered mental status. [facility] patient was unresponsive and was altered from his baseline. In the ED patient required to be intubated due to possible seizure and for airway protection. No reported prior illness, changes or injury according to [facility] report. Vitals Vitals Vital Signs Date Time Temp Pulse Resp B/P (MAP) Pulse Ox O2 Delivery O2 Flow Rate FiO2 11/19/20 07:00 98.2 62 18 118/95 (103) 95 Room Air 98.2 11/18/20 08:00 2.0 Physical Exam Physical Exam CONSTITUTIONAL: Sleepy, opens eyes transiently HEENT: Normocephalic, atraumatic. OG tube in place. Oropharynx clear. Appears to have poor dentition. NECK: Supple. Left EJ present. LUNGS: Decreased breath sounds at the bases. HEART: S1, S2, without murmurs. ABDOMEN: Mildly distended. No guarding. Bowel sounds present. EXTREMITIES: No edema. DERM: Warm and dry. No generalized rash. NEUROLOGIC: Opens eyes transiently does respond to questions BACK: Reveals sacral wound, there is a thin layer of tissue over the bone, foul smelling drainage with wound VAC in place. General: Alert, Cooperative, Other (Unconscious with ventilator ) Heart: Regular rate Lungs: Clear Abdomen: Normal bowel sounds, Soft Extremities: No clubbing, No cyanosis, Other (ichthyosis) Skin: No breakdown Assessment and Plan Assessmemt and Plan Problems Medical Problems: (1) Acute respiratory failure Status: Acute (2) Urinary tract infection Status: Acute Comment Review of Relevant I have reviewed the following items any (where applicable) has been applied. Labs Laboratory Tests Test 11/17/20 11:57 11/17/20 17:30 11/18/20 04:45 Glucose (Fingerstick) 127 mg/dL (70-99) 112 mg/dL (70-99) White Blood Count 6.7 x10^3/uL (4.0-11.0) Red Blood Count 2.65 x10^6/uL (4.30-5.70) Hemoglobin 7.2 g/dL (13.0-17.5) Hematocrit 22.1 % (39.0-53.0) Mean Corpuscular Volume 83 fL (79-100) Mean Corpuscular Hemoglobin 27 pg (25-35) Mean Corpuscular Hemoglobin Concent 33 g/dL (31-37) Red Cell Distribution Width 16.1 % (11.5-14.5) Platelet Count 213 x10^3/uL (140-400) Neutrophils (%) (Auto) 55 % (31-73) Lymphocytes (%) (Auto) 28 % (24-48) Monocytes (%) (Auto) 13 % (0-9) Eosinophils (%) (Auto) 2 % (0-3) Basophils (%) (Auto) 2 % (0-3) Neutrophils # (Auto) 3.7 x10^3/uL (1.8-7.7) Lymphocytes # (Auto) 1.9 x10^3/uL (1.0-4.8) Monocytes # (Auto) 0.9 x10^3/uL (0.0-1.1) Eosinophils # (Auto) 0.2 x10^3/uL (0.0-0.7) Basophils # (Auto) 0.1 x10^3/uL (0.0-0.2) Sodium Level 144 mmol/L (136-145) Potassium Level 3.0 mmol/L (3.5-5.1) Chloride Level 108 mmol/L (98-107) Carbon Dioxide Level 29 mmol/L (21-32) Anion Gap 7 (6-14) Blood Urea Nitrogen 11 mg/dL (8-26) Creatinine 0.7 mg/dL (0.7-1.3) Estimated GFR (Cockcroft-Gault) 137.4 Glucose Level 97 mg/dL (70-99) Calcium Level 8.2 mg/dL (8.5-10.1) Magnesium Level 2.0 mg/dL (1.8-2.4) Microbiology 11/16/20 Blood Culture - Preliminary, Resulted NO GROWTH AFTER 3 DAYS 11/14/20 Gram Stain - Final, Resulted 11/14/20 Aerobic and Anaerobic Culture - Preliminary, Resulted 11/14/20 Antimicrobic Susceptibility - Preliminary, Resulted 11/13/20 Urine Culture - Final, Complete Medications Current Medications Sodium Chloride 50 ml @ 50 mls/hr 1X ONCE IV ; Start 11/13/20 at 12:15; Stop 11/13/20 at 13:14; Status DC Labetalol HCl (Normodyne Iv Push) 10 mg PRN Q10MIN PRN IVP HYPERTENSION; Start 11/13/20 at 12:15 Nicardipine HCl 50 mg/Sodium Chloride 250 ml @ 25 mls/hr CONT PRN PRN IV HYPERTENSION; Start 11/13/20 at 12:15; Stop 11/18/20 at 20:54; Status DC Lorazepam (Ativan Inj) 2 mg 1X ONCE IVP Last administered on 11/13/20at 12:07; Start 11/13/20 at 12:15; Stop 11/13/20 at 12:16; Status DC Lorazepam (Ativan Inj) 2 mg STK-MED ONCE .ROUTE ; Start 11/13/20 at 12:05; Stop 11/13/20 at 12:06; Status DC Propofol 100 ml @ As Directed STK-MED ONCE IV ; Start 11/13/20 at 12:26; Stop 11/13/20 at 12:27; Status DC Piperacillin Sod/ Tazobactam Sod 3.375 gm/Sodium Chloride 50 ml @ 100 mls/hr 1X ONCE IV Last administered on 11/13/20at 13:12; Start 11/13/20 at 12:30; Stop 11/13/20 at 12:59; Status DC Vancomycin HCl 1.5 gm/Sodium Chloride 500 ml @ 250 mls/hr 1X ONCE IV Last administered on 11/13/20at 15:46; Start 11/13/20 at 13:00; Stop 11/13/20 at 14:59; Status DC Etomidate (Amidate) 20 mg 1X ONCE IV Last administered on 11/13/20at 12:21; Start 11/13/20 at 12:30; Stop 11/13/20 at 12:31; Status DC Succinylcholine Chloride (Anectine) 100 mg 1X ONCE IV Last administered on 11/13/20at 12:21; Start 11/13/20 at 12:30; Stop 11/13/20 at 12:31; Status DC Ketorolac Tromethamine (Toradol 15mg Vial) 15 mg 1X ONCE IVP Last administered on 11/13/20at 13:11; Start 11/13/20 at 12:30; Stop 11/13/20 at 12:44; Status DC Propofol 100 ml @ 2.55 mls/hr CONT PRN IV PER PROTOCOL Last administered on 11/13/20at 12:35; Start 11/13/20 at 12:30; Stop 11/14/20 at 11:24; Status DC Iohexol (Omnipaque 300 Mg/ml) 75 ml 1X ONCE IV Last administered on 11/13/20at 13:45; Start 11/13/20 at 13:45; Stop 11/13/20 at 13:46; Status DC Norepinephrine Bitartrate 8 mg/ Dextrose 258 ml @ 16.448 mls/ hr 1X ONCE IV Last administered on 11/13/20at 13:48; Start 11/13/20 at 13:45; Stop 11/14/20 at 05:26; Status DC Midazolam HCl 50 mg/Sodium Chloride 50 ml @ 0 mls/hr 1X ONCE IV Last administered on 11/13/20at 13:49; Start 11/13/20 at 13:45; Stop 11/13/20 at 13:46; Status DC Sennosides (Senna) 17.2 mg PRN BID PRN PO CONSTIPATION, 2ND CHOICE; Start 11/13/20 at 13:45 Docusate Sodium (Colace) 100 mg PRN DAILY PRN PO HARD STOOLS; Start 11/13/20 at 13:45 Ondansetron HCl (Zofran) 4 mg PRN Q6HRS PRN IVP NAUSEA/VOMITING; Start 11/13/20 at 13:45 Dextrose (Dextrose 50%-Water Syringe) 12.5 gm PRN Q15MIN PRN IV SEE COMMENTS; Start 11/13/20 at 13:45 Sodium Chloride 1,000 ml @ 100 mls/hr Q10H IV Last administered on 11/17/20at 04:19; Start 11/13/20 at 13:45; Stop 11/17/20 at 11:23; Status DC Acetaminophen (Tylenol) 650 mg PRN Q4HRS PRN PO TEMP OVER 100.4F OR MILD PAIN; Start 11/13/20 at 13:45; Stop 11/14/20 at 12:04; Status DC Enoxaparin Sodium (Lovenox 40mg Syringe) 40 mg Q24H SQ Last administered on 11/18/20at 15:09; Start 11/13/20 at 14:00 Pantoprazole Sodium (PROTONIX VIAL for IV PUSH) 40 mg DAILYAC IVP Last administered on 11/19/20at 08:26; Start 11/14/20 at 07:30 Sodium Chloride 1,000 ml @ 1,000 mls/hr 1X ONCE IV Last administered on 11/13/20at 12:30; Start 11/13/20 at 14:00; Stop 11/13/20 at 14:59; Status DC Sodium Chloride 1,000 ml @ 1,000 mls/hr 1X ONCE IV Last administered on 11/13/20at 14:00; Start 11/13/20 at 14:00; Stop 11/13/20 at 14:59; Status DC Ondansetron HCl (Zofran) 4 mg PRN Q8HRS PRN IV NAUSEA/VOMITING; Start 11/13/20 at 15:15; Stop 11/14/20 at 08:06; Status DC Morphine Sulfate (Morphine Sulfate) 4 mg PRN Q2HR PRN IV PAIN; Start 11/13/20 at 15:15; Stop 11/14/20 at 15:14; Status DC Metronidazole 100 ml @ 100 mls/hr Q12HR IV Last administered on 11/15/20at 07:22; Start 11/13/20 at 19:00; Stop 11/15/20 at 11:33; Status DC Cefepime HCl (Maxipime) 2 gm Q24H IVP Last administered on 11/14/20at 16:34; Start 11/13/20 at 17:00; Stop 11/15/20 at 11:33; Status DC Midazolam HCl 100 ml @ 1 mls/hr CONT PRN IV SEE I/O RECORD; Start 11/13/20 at 19:30; Stop 11/17/20 at 10:02; Status DC Fentanyl Citrate 30 ml @ 0 mls/hr CONT PRN IV SEE PROTOCOL; Start 11/13/20 at 19:30; Stop 11/17/20 at 10:02; Status DC Daptomycin 480 mg/ Sodium Chloride 50 ml @ 100 mls/hr Q24H IV Last administered on 11/17/20at 09:44; Start 11/14/20 at 10:00; Stop 11/17/20 at 12:40; Status DC Propofol 100 ml @ 2.322 mls/ hr CONT PRN IV PER PROTOCOL Last administered on 11/17/20at 04:19; Start 11/14/20 at 11:30; Stop 11/17/20 at 10:03; Status DC Acetaminophen (Tylenol) 650 mg PRN Q4HRS PRN PO TEMP OVER 100.4F OR MILD PAIN; Start 11/14/20 at 12:00 Haloperidol (Haldol) 4 mg BID PO Last administered on 11/17/20at 10:14; Start 11/14/20 at 12:30; Stop 11/17/20 at 21:39; Status DC Polyethylene Glycol (miraLAX PACKET) 17 gm PRN DAILY PRN PO CONSTIPATION, 1ST CHOICE; Start 11/14/20 at 12:00 Benztropine Mesylate (Cogentin) 0.5 mg BID PO Last administered on 11/19/20 08:24; Start 11/14/20 at 12:30 Hydrochlorothiazide (Microzide) 12.5 mg DAILY PO Last administered on 11/19/20 08:24; Start 11/14/20 at 12:30 Quetiapine Fumarate (SEROquel) 400 mg QHS PO Last administered on 11/18/20 23:08; Start 11/14/20 at 21:00 Valproic Acid (Depakene) 500 mg BID PO Last administered on 11/15/20at 20:28; Start 11/14/20 at 12:30; Stop 11/16/20 at 09:47; Status DC Levetiracetam 500 mg/Dextrose 105 ml @ 420 mls/hr Q12HR IV Last administered on 11/18/20 08:58; Start 11/14/20 at 12:45; Stop 11/18/20 at 13:40; Status DC Lorazepam (Ativan Inj) 2 mg PRN Q4HRS PRN IVP ANXIETY / AGITATION Last administered on 11/16/20at 09:57; Start 11/14/20 at 13:15 Micafungin Sodium 100 mg/Dextrose 100 ml @ 100 mls/hr Q24H IV Last administered on 11/18/20 12:24; Start 11/15/20 at 12:00 Piperacillin Sod/ Tazobactam Sod 3.375 gm/Sodium Chloride 50 ml @ 100 mls/hr Q6HRS IV Last administered on 11/18/20 05:30; Start 11/15/20 at 12:00; Stop 11/18/20 at 08:17; Status DC Valproic Acid (Depakene) 500 mg BID PEG Last administered on 11/17/20 08:52; Start 11/16/20 at 10:00; Stop 11/18/20 at 20:55; Status DC Potassium Bicarbonate (Potassium Effervescent Tablet) 40 meq 1X ONCE PO Last administered on 11/16/20at 10:35; Start 11/16/20 at 10:00; Stop 11/16/20 at 10:01; Status DC Scopolamine (Transderm-Scop) 1 patch Q3DAYS TD Last administered on 11/19/20at 08:25; Start 11/16/20 at 11:00 Amino Acids/ Glycerin/ Electrolytes 1,000 ml @ 80 mls/hr [id number] IV Last administered on 11/18/20at 12:16; Start 11/17/20 at 11:30 Fentanyl Citrate (Fentanyl 2ml Vial) 25 mcg PRN Q4HRS PRN IVP MODERATE TO SEVERE PAIN Last administered on 11/17/20at 18:44; Start 11/17/20 at 18:45 Haloperidol Lactate (Haldol Inj) 2 mg DAILY08 IVP Last administered on 11/19/20at 08:26; Start 11/18/20 at 08:00 Ampicillin Sodium/ Sulbactam Sodium 3 gm/Sodium Chloride 100 ml @ 200 mls/hr Q6HRS IV Last administered on 11/19/20at 05:40; Start 11/18/20 at 12:00 Levetiracetam (Keppra) 500 mg BID PO Last administered on 11/19/20at 08:24; Start 11/18/20 at 21:00 Multivitamins (Thera M Plus) 1 tab DAILY PO Last administered on 11/19/20at 08:25; Start 11/19/20 at 09:00 Ascorbic Acid (Vitamin C) 500 mg DAILY PO Last administered on 11/19/20at 08:24; Start 11/19/20 at 09:00 Valproic Acid (Depakene) 500 mg BID PO Last administered on 11/19/20at 08:25; Start 11/18/20 at 21:00 Active Scripts Active Tylenol (Acetaminophen) 325 Mg Tablet 650 Mg PO PRN Q4HRS PRN 30 Days Reported Seroquel (Quetiapine Fumarate) 400 Mg Tablet 2 Tab PO QHS Valproic Acid (Valproate Sodium) 500 Mg/10 Ml Solution 500 Mg PO BID Lisinopril 20 Mg Tablet 1 Tab PO DAILY Hydrochlorothiazide Tablet (Hydrochlorothiazide) 12.5 Mg Tablet 12.5 Mg PO DAILY Haloperidol 2 Mg Tablet 2 Tab PO BID Benztropine Mesylate 0.5 Mg Tablet 1 Tab PO BID Miralax (Polyethylene Glycol 3350) 17 Gm Powd.pack 1 Packet PO PRN DAILY PRN 2 Days dissolve in water Vitals/I & O Vital Sign - Last 24 Hours 11/18/20 11/18/20 11/18/20 11/18/20 11:08 15:12 18:50 20:05 Temp 97.9 98.2 97.9 98.2 Pulse 54 85 80 Resp 14 16 22 B/P (MAP) 147/80 (102) 156/87 (110) 129/79 (96) Pulse Ox 100 98 88 O2 Delivery Room Air Room Air Room Air Room Air 11/18/20 11/19/20 11/19/20 23:00 03:00 07:00 Temp 98.2 97.9 98.2 98.2 97.9 98.2 Pulse 70 80 62 Resp 20 18 18 B/P (MAP) 149/96 (113) 135/81 (99) 118/95 (103) Pulse Ox 96 95 95 O2 Delivery Room Air Room Air Room Air Intake and Output 11/18/20 11/18/20 11/19/20 15:00 23:00 07:00 Intake Total 720 ml 240 ml 20 ml Output Total 1900 ml Balance 720 ml -1660 ml 20 ml Nutrition Consultation Dietary Evaluation: Recommendations by RD: Dietary education by RD, Increase Calorie Intake, Protein supplementation, PPN/TPN Comments: Cardiac: dysphagia II/Mechanical soft/ thin liquids PPN @ 80ml/hr Expected Outcomes/Goals: new goal:to meet > 75% est nutr needs Malnutrition Findings: Body Fat Depletion (Non Severe: Mild Depletion Weight Status: Appropriate Justicifation of Admission Dx: Justifications for Admission: Justification of Admission Dx: N/A ITZEL MORALES MD November 19, 2020 10:22
[2020-11-19 11:00] VITALS: BP 161/92
--- NOTE | 2020-11-19 11:47 | PDOC ---
PULMONARY PROGRESS NOTES DATE: 11/19/20 TIME: 11:47 Subjective Patient was extubated on 11/17/2020 now on room air Vitals Vital Signs Date Time Temp Pulse Resp B/P (MAP) Pulse Ox O2 Delivery O2 Flow Rate FiO2 11/19/20 07:00 98.2 62 18 118/95 (103) 95 Room Air 98.2 11/18/20 08:00 2.0 ROS: No Nausea, No Chest Pain, No Abdominal Pain, No Increase Cough General: Alert Lungs: Clear Cardiovascular: S1 Abdomen: Soft Extremities: No Edema Skin: Warm, Dry, Other (wound to coccyx with wound VAC) Labs Laboratory Tests Test 11/17/20 11:57 11/17/20 17:30 11/18/20 04:45 Glucose (Fingerstick) 127 mg/dL (70-99) 112 mg/dL (70-99) White Blood Count 6.7 x10^3/uL (4.0-11.0) Red Blood Count 2.65 x10^6/uL (4.30-5.70) Hemoglobin 7.2 g/dL (13.0-17.5) Hematocrit 22.1 % (39.0-53.0) Mean Corpuscular Volume 83 fL (79-100) Mean Corpuscular Hemoglobin 27 pg (25-35) Mean Corpuscular Hemoglobin Concent 33 g/dL (31-37) Red Cell Distribution Width 16.1 % (11.5-14.5) Platelet Count 213 x10^3/uL (140-400) Neutrophils (%) (Auto) 55 % (31-73) Lymphocytes (%) (Auto) 28 % (24-48) Monocytes (%) (Auto) 13 % (0-9) Eosinophils (%) (Auto) 2 % (0-3) Basophils (%) (Auto) 2 % (0-3) Neutrophils # (Auto) 3.7 x10^3/uL (1.8-7.7) Lymphocytes # (Auto) 1.9 x10^3/uL (1.0-4.8) Monocytes # (Auto) 0.9 x10^3/uL (0.0-1.1) Eosinophils # (Auto) 0.2 x10^3/uL (0.0-0.7) Basophils # (Auto) 0.1 x10^3/uL (0.0-0.2) Sodium Level 144 mmol/L (136-145) Potassium Level 3.0 mmol/L (3.5-5.1) Chloride Level 108 mmol/L (98-107) Carbon Dioxide Level 29 mmol/L (21-32) Anion Gap 7 (6-14) Blood Urea Nitrogen 11 mg/dL (8-26) Creatinine 0.7 mg/dL (0.7-1.3) Estimated GFR (Cockcroft-Gault) 137.4 Glucose Level 97 mg/dL (70-99) Calcium Level 8.2 mg/dL (8.5-10.1) Magnesium Level 2.0 mg/dL (1.8-2.4) Medications Active Scripts Medications Dose Route/Sig Max Daily Dose Days Date Category Dose Instructions Seroquel (Quetiapine Fumarate) 400 Mg Tablet 2 Tab PO QHS 11/14/20 Reported Valproic Acid (Valproate Sodium) 500 Mg/10 Ml Solution 500 Mg PO BID 11/14/20 Reported Lisinopril 20 Mg Tablet 1 Tab PO DAILY 09/25/20 Reported Hydrochlorothiazide Tablet (Hydrochlorothiazide) 12.5 Mg Tablet 12.5 Mg PO DAILY 09/25/20 Reported Haloperidol 2 Mg Tablet 2 Tab PO BID 09/25/20 Reported Benztropine Mesylate 0.5 Mg Tablet 1 Tab PO BID 09/25/20 Reported Miralax (Polyethylene Glycol 3350) 17 Gm Powd.pack 1 Packet PO PRN DAILY PRN 2 09/25/20 Reported dissolve in water Tylenol (Acetaminophen) 325 Mg Tablet 650 Mg PO PRN Q4HRS PRN 30 08/03/20 Rx Impression . IMPRESSION: 1. Acute respiratory failure secondary to encephalopathy 2/2 seizure. The patient was intubated for airway protection. Recurrent seizures, --now extubated 2. Metabolic encephalopathy 3. No definite infiltrate seen on the chest x-ray. 4. Adequate gas exchange on ABGs. 5. History of schizophrenia. 6. History of alcoholism. 7. Enterococcus bacteremia Plan . Updated 11/19 No respiratory distress We will sign off call if needed Updated 11/18 Continue supplemental oxygen as needed, currently on room air Follow neurology recs-- EEG showed seizure activity continue AEM/Keppra seizure precautions Continue antibiotics per Infectious Disease-- Decubitus ulcer with wound VAC in place. Enterococcus and Corynebacterium stratum on swab cultures--repeat blood cultures no growth to date Physical therapy/Occupational Therapy/speech therapy Continue PPN for nutritional support DVT/GI PPX Plan to proceed with palliative care if patient continues to have seizures Okay for patient to move out of the intensive care unit today if okay with other consultants Pt. is DNR/DNI Discussed with RN Updated 11/17 Continue vent support currently on 30% and PEEP of 5, recommend palliative extubation at this time D/W sister failed CPAP due to seizure on 11/16 ABG and CXR reviewed--no changes Follow neurology recs-- EEG showed seizure activity continue AEM/Keppra seizure precautions Continue antibiotics per Infectious Disease-- follow cultures positive for Enterococcus bacteremia Continue TF for nutritional support DVT/GI PPX D/W sister (DPOA) she agrees to palliative extubation and if he has additional seizures will proceed with comfort measures including morphine gtt critical care time 30 minutes including review of the chart, imaging studies and decision making and making a plan. Pt. is now DNR ZACHARY GARCIA MD November 19, 2020 11:47
[2020-11-19] MEDS: MICAFUNGIN 100 MG in IV DEXTROSE 5% 100ML 100 ML IV SCH (13:17)
[2020-11-19] MEDS: ENOXAPARIN 40 MG/0.4 ML SYRINGE. SQ SCH (14:00)
--- NOTE | 2020-11-19 14:44 | NUR ---
n/a Addendum: 11/19/20 at 1542 by REFUGIO DAY RN RN Amended: Links added.
[2020-11-19 15:00] VITALS: BP 150/83
--- NOTE | 2020-11-19 15:35 | NUR ---
not completed Addendum: 11/19/20 at 1536 by REFUGIO DAY RN RN Amended: Links added.
[2020-11-19 19:00] VITALS: BP 157/99
[2020-11-19] MEDS: LACTOBACILLUS RHAMNOSUS GG 1 CAPSULE. PO SCH (20:54)
[2020-11-19] MEDS: QUEtiapine 100 MG TABLET. PO SCH (20:54)
[2020-11-19 23:00] VITALS: BP 132/68
[2020-11-20] MEDS: AMPICILLIN/SULBACTAM 3 GM in IV NORMAL SALINE 100ML 100 ML IV SCH ×5 (00:03→23:22)
[2020-11-20] MEDS: AMINO AC 3%/ELECTROLYTE/GLYCER 1,000 ML IV SCH ×2 (00:03→13:43)
[2020-11-20 03:00] VITALS: BP 143/76
[2020-11-20] MEDS: PANTOPRAZOLE IV PUSH 40 MG VIAL. IVP SCH (06:16)
[2020-11-20 07:00] VITALS: BP 154/81
[2020-11-20 07:19] LABS: ALBUMIN 1.9 g/dL (3.4-5.0); ALBUMIN/GLOBULIN RATIO 0.4 (1.0-1.7); CALCIUM 8.4 mg/dL (8.5-10.1); CREATININE 0.7 mg/dL (0.7-1.3); GFR 137.4; TOTAL BILIRUBIN 0.2 mg/dL (0.2-1.0); TOTAL PROTEIN 6.3 g/dL (6.4-8.2)
[2020-11-20 07:36] LABS: BASO # 0.1 x10^3/uL (0.0-0.2); BASO % 1 % (0-3); EOS # 0.2 x10^3/uL (0.0-0.7); EOS % 2 % (0-3); HEMATOCRIT 23.1 % (39.0-53.0); HEMOGLOBIN 7.6 g/dL (13.0-17.5); LYMPH # 2.5 x10^3/uL (1.0-4.8); LYMPH % 24 % (24-48); MEAN CORPUSCULAR HEMOGLOBIN 27 pg (25-35); MEAN CORPUSCULAR HGB CONC 33 g/dL (31-37); MEAN CORPUSCULAR VOLUME 83 fL (79-100); MONO # 0.9 x10^3/uL (0.0-1.1); MONO % 8 % (0-9); NEUT # 6.7 x10^3/uL (1.8-7.7); NEUT % 65 % (31-73); PLATELET COUNT 331 x10^3/uL (140-400); RED BLOOD COUNT 2.78 x10^6/uL (4.30-5.70); RED CELL DISTRIBUTION WIDTH 16.6 % (11.5-14.5); WHITE BLOOD COUNT 10.3 x10^3/uL (4.0-11.0)
--- NOTE | 2020-11-20 08:17 | PDOC ---
Infectious Disease Note Subjective: Subjective Patient without complaints watching TV Vital Signs: Vital Signs Vital Signs Date Time Temp Pulse Resp B/P (MAP) Pulse Ox O2 Delivery O2 Flow Rate FiO2 11/20/20 03:00 97.9 94 20 143/76 (98) 95 Room Air 97.9 Physical Exam: PHYSICAL EXAM CONSTITUTIONAL: Patient alert awake looks better HEENT: Normocephalic, atraumatic. OG tube in place. Oropharynx clear. NECK: Supple. LUNGS: Decreased breath sounds at the bases. HEART: S1, S2, without murmurs. ABDOMEN: Mildly distended. No guarding. Bowel sounds present. EXTREMITIES: No edema. DERM: Warm and dry. No generalized rash. NEUROLOGIC: Alert awake BACK: Sacral wound not examined Medications: Inpatient Meds: Medications reviewed. Labs: Lab Laboratory Tests Test 11/20/20 05:30 White Blood Count 10.3 x10^3/uL (4.0-11.0) Red Blood Count 2.78 x10^6/uL (4.30-5.70) Hemoglobin 7.6 g/dL (13.0-17.5) Hematocrit 23.1 % (39.0-53.0) Mean Corpuscular Volume 83 fL (79-100) Mean Corpuscular Hemoglobin 27 pg (25-35) Mean Corpuscular Hemoglobin Concent 33 g/dL (31-37) Red Cell Distribution Width 16.6 % (11.5-14.5) Platelet Count 331 x10^3/uL (140-400) Neutrophils (%) (Auto) 65 % (31-73) Lymphocytes (%) (Auto) 24 % (24-48) Monocytes (%) (Auto) 8 % (0-9) Eosinophils (%) (Auto) 2 % (0-3) Basophils (%) (Auto) 1 % (0-3) Neutrophils # (Auto) 6.7 x10^3/uL (1.8-7.7) Lymphocytes # (Auto) 2.5 x10^3/uL (1.0-4.8) Monocytes # (Auto) 0.9 x10^3/uL (0.0-1.1) Eosinophils # (Auto) 0.2 x10^3/uL (0.0-0.7) Basophils # (Auto) 0.1 x10^3/uL (0.0-0.2) Sodium Level 145 mmol/L (136-145) Potassium Level 3.0 mmol/L (3.5-5.1) Chloride Level 107 mmol/L (98-107) Carbon Dioxide Level 30 mmol/L (21-32) Anion Gap 8 (6-14) Blood Urea Nitrogen 11 mg/dL (8-26) Creatinine 0.7 mg/dL (0.7-1.3) Estimated GFR (Cockcroft-Gault) 137.4 BUN/Creatinine Ratio 16 (6-20) Glucose Level 96 mg/dL (70-99) Calcium Level 8.4 mg/dL (8.5-10.1) Total Bilirubin 0.2 mg/dL (0.2-1.0) Aspartate Amino Transf (AST/SGOT) 37 U/L (15-37) Alanine Aminotransferase (ALT/SGPT) 42 U/L (16-63) Alkaline Phosphatase 65 U/L (46-116) Total Protein 6.3 g/dL (6.4-8.2) Albumin 1.9 g/dL (3.4-5.0) Albumin/Globulin Ratio 0.4 (1.0-1.7) Objective: Assessment: 1. Fever. Resolved 2. Leukocytosis. 3. Sepsis. 4. Enterococcal bacteremia, 1 out of 4 bottles present on admission, 11/13/2020. Lyndsay albicans fungemia 1 out of 4 bottles present on admission 11/13/2020 5. Complicated urinary tract infection with hydronephrosis, right greater than left. Urine cultures contamination 6. Encephalopathy ,Seizures 7. Acute respiratory failure, status post intubation. Now extubated 8. Chronic nonhealing decubitus ulcer with wound VAC in place. Enterococcus and Bacteroides, Corynebacterium stratum ,on swab cultures Corynebacterium likely colonization 9. History of ETOH dependence. 10.History of schizophrenia 11.History of Anxiety Plan: Plan of Care Continue micafungin November 15 Discussed with micro lab for susceptibilities for Lyndsay albicans on blood cultures Cont Unasyn, was on Zosyn Repeat blood cultures 11/15/2020, 11/16/2020 negative so far Follow up labs and cultures. Terrazas changed per nursing staff Wound VAC as directed. Offload. Continue supportive care. TRINI KAT MD November 20, 2020 08:17
[2020-11-20] MEDS: hydroCHLOROthiazide 12.5 MG CAPSULE PO SCH (09:08)
[2020-11-20] MEDS: VALPROIC ACID (AS SODIUM SALT) 250 MG/5 ML SOLUTION. PO SCH ×2 (09:08→21:14)
[2020-11-20] MEDS: BENZTROPINE MESYLATE 1 MG TABLET. PO SCH ×2 (09:08→21:15)
[2020-11-20] MEDS: LACTOBACILLUS RHAMNOSUS GG 1 CAPSULE. PO SCH ×2 (09:08→21:14)
[2020-11-20] MEDS: levETIRAcetam 500 MG TABLET PO SCH ×2 (09:08→21:15)
[2020-11-20] MEDS: MULTIVITAMIN with MINERAL TABLET. PO SCH (09:08)
[2020-11-20] MEDS: ASCORBIC ACID 500 MG TABLET PO SCH (09:08)
[2020-11-20] MEDS: HALOPERIDOL LACTATE 5 MG/ML VIAL. IVP SCH (09:09)
--- NOTE | 2020-11-20 10:23 | PDOC ---
PROGRESS NOTES Date of Service: DATE: 11/20/20 TIME: 10:31 Chief Complaint Chief Complaint Altered mental status, acute encephalopathy Seizure, disorder Acute respiratory failure History of schizophrenia. History of alcoholism. sepsis and bacteremia History of Present Illness History of Present Illness 11/20 Sepsis. Enterococcal bacteremia, 1 out of 4 bottles present on admission, 11/13/2020. 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 Urine cultures contamination Encephalopathy ,Seizures Continue micafungin pending susceptibilities for Lyndsay albicans on blood cultures Cont Unasyn,iv better , balderas, NEEDED replaced due to wounds, unable to use commode start rehab will DC back to ad terminal makeup operator care soon, try OOB, then likely SNU to LTC D/W RN 11/19 better and better, DC balderas, NEEDED replaced today due to wounds, unable to use commode may get out of ICU cont current start rehab will DC back to [facility] care soon, try OOB, then likely SNU to LTC 11/18, better and better, will DC the balderas may get out of ICU cont current start rehab will DC back to [facility] care soon, try OOB, then likely SNU to LTC 11/17, extubated, now alert, doign well, his oldest sister was in room later and I discussed improvement and plan following bacteremia, better, he is alert, lethargic, could still be post-ictal from long repeated seizure activity 11/16 family in room, pt made DNR, will try to extubate soon, weaning vent OK he may have ongoing seizures per Neuro, 11/15/2020 Patient seen and examined Chart reviewed, spoke with nursing Currently sedated and vent weaning AC/500/14/30% on 5.0 PEEP 11/14/2020 Patient seen and examined Patient on ventilation and unconscious Stopped versaid, currently vent weaning Witnessed tremors of arms, possible seizure activity. Informed nursing and discussed starting ativan Current ventilation settings: A/C/16/500ml/40% with 5 PEEP HPI 11/13/2020 History obtained from ED physician Patient is a 64-year-old male with past medical history of alcohol dependence, anxiety, schizophrenia, hypertension who resides at [facility] who presents to the ED due to concern for altered mental status. According to the care home patient was unresponsive and was altered from his baseline. In the ED patient required to be intubated due to possible seizure and for airway protection. No reported prior illness, changes or injury according to care home report. Vitals Vitals Vital Signs Date Time Temp Pulse Resp B/P (MAP) Pulse Ox O2 Delivery O2 Flow Rate FiO2 11/20/20 07:00 98.1 85 18 154/81 (105) 95 Room Air 98.1 Physical Exam Physical Exam CONSTITUTIONAL: Patient alert awake looks better HEENT: Normocephalic, atraumatic. OG tube in place. Oropharynx clear. NECK: Supple. LUNGS: Decreased breath sounds at the bases. HEART: S1, S2, without murmurs. ABDOMEN: Mildly distended. No guarding. Bowel sounds present. EXTREMITIES: No edema. DERM: Warm and dry. No generalized rash. NEUROLOGIC: Alert awake BACK: Sacral wound not examined General: Alert, Cooperative, No acute distress, Other (Unconscious with v entilator ) Heart: Regular rate Lungs: Clear Abdomen: Normal bowel sounds, Soft Extremities: No clubbing, No cyanosis, Other (ichthyosis) Skin: No breakdown Labs LABS Laboratory Tests Test 11/20/20 05:30 White Blood Count 10.3 x10^3/uL (4.0-11.0) Red Blood Count 2.78 x10^6/uL (4.30-5.70) Hemoglobin 7.6 g/dL (13.0-17.5) Hematocrit 23.1 % (39.0-53.0) Mean Corpuscular Volume 83 fL (79-100) Mean Corpuscular Hemoglobin 27 pg (25-35) Mean Corpuscular Hemoglobin Concent 33 g/dL (31-37) Red Cell Distribution Width 16.6 % (11.5-14.5) Platelet Count 331 x10^3/uL (140-400) Neutrophils (%) (Auto) 65 % (31-73) Lymphocytes (%) (Auto) 24 % (24-48) Monocytes (%) (Auto) 8 % (0-9) Eosinophils (%) (Auto) 2 % (0-3) Basophils (%) (Auto) 1 % (0-3) Neutrophils # (Auto) 6.7 x10^3/uL (1.8-7.7) Lymphocytes # (Auto) 2.5 x10^3/uL (1.0-4.8) Monocytes # (Auto) 0.9 x10^3/uL (0.0-1.1) Eosinophils # (Auto) 0.2 x10^3/uL (0.0-0.7) Basophils # (Auto) 0.1 x10^3/uL (0.0-0.2) Sodium Level 145 mmol/L (136-145) Potassium Level 3.0 mmol/L (3.5-5.1) Chloride Level 107 mmol/L (98-107) Carbon Dioxide Level 30 mmol/L (21-32) Anion Gap 8 (6-14) Blood Urea Nitrogen 11 mg/dL (8-26) Creatinine 0.7 mg/dL (0.7-1.3) Estimated GFR (Cockcroft-Gault) 137.4 BUN/Creatinine Ratio 16 (6-20) Glucose Level 96 mg/dL (70-99) Calcium Level 8.4 mg/dL (8.5-10.1) Total Bilirubin 0.2 mg/dL (0.2-1.0) Aspartate Amino Transf (AST/SGOT) 37 U/L (15-37) Alanine Aminotransferase (ALT/SGPT) 42 U/L (16-63) Alkaline Phosphatase 65 U/L (46-116) Total Protein 6.3 g/dL (6.4-8.2) Albumin 1.9 g/dL (3.4-5.0) Albumin/Globulin Ratio 0.4 (1.0-1.7) Assessment and Plan Assessmemt and Plan Problems Medical Problems: (1) Acute respiratory failure Status: Acute (2) Urinary tract infection Status: Acute Comment Review of Relevant I have reviewed the following items any (where applicable) has been applied. Labs Laboratory Tests Test 11/20/20 05:30 White Blood Count 10.3 x10^3/uL (4.0-11.0) Red Blood Count 2.78 x10^6/uL (4.30-5.70) Hemoglobin 7.6 g/dL (13.0-17.5) Hematocrit 23.1 % (39.0-53.0) Mean Corpuscular Volume 83 fL (79-100) Mean Corpuscular Hemoglobin 27 pg (25-35) Mean Corpuscular Hemoglobin Concent 33 g/dL (31-37) Red Cell Distribution Width 16.6 % (11.5-14.5) Platelet Count 331 x10^3/uL (140-400) Neutrophils (%) (Auto) 65 % (31-73) Lymphocytes (%) (Auto) 24 % (24-48) Monocytes (%) (Auto) 8 % (0-9) Eosinophils (%) (Auto) 2 % (0-3) Basophils (%) (Auto) 1 % (0-3) Neutrophils # (Auto) 6.7 x10^3/uL (1.8-7.7) Lymphocytes # (Auto) 2.5 x10^3/uL (1.0-4.8) Monocytes # (Auto) 0.9 x10^3/uL (0.0-1.1) Eosinophils # (Auto) 0.2 x10^3/uL (0.0-0.7) Basophils # (Auto) 0.1 x10^3/uL (0.0-0.2) Sodium Level 145 mmol/L (136-145) Potassium Level 3.0 mmol/L (3.5-5.1) Chloride Level 107 mmol/L (98-107) Carbon Dioxide Level 30 mmol/L (21-32) Anion Gap 8 (6-14) Blood Urea Nitrogen 11 mg/dL (8-26) Creatinine 0.7 mg/dL (0.7-1.3) Estimated GFR (Cockcroft-Gault) 137.4 BUN/Creatinine Ratio 16 (6-20) Glucose Level 96 mg/dL (70-99) Calcium Level 8.4 mg/dL (8.5-10.1) Total Bilirubin 0.2 mg/dL (0.2-1.0) Aspartate Amino Transf (AST/SGOT) 37 U/L (15-37) Alanine Aminotransferase (ALT/SGPT) 42 U/L (16-63) Alkaline Phosphatase 65 U/L (46-116) Total Protein 6.3 g/dL (6.4-8.2) Albumin 1.9 g/dL (3.4-5.0) Albumin/Globulin Ratio 0.4 (1.0-1.7) Laboratory Tests Test 11/20/20 05:30 White Blood Count 10.3 x10^3/uL (4.0-11.0) Red Blood Count 2.78 x10^6/uL (4.30-5.70) Hemoglobin 7.6 g/dL (13.0-17.5) Hematocrit 23.1 % (39.0-53.0) Mean Corpuscular Volume 83 fL (79-100) Mean Corpuscular Hemoglobin 27 pg (25-35) Mean Corpuscular Hemoglobin Concent 33 g/dL (31-37) Red Cell Distribution Width 16.6 % (11.5-14.5) Platelet Count 331 x10^3/uL (140-400) Neutrophils (%) (Auto) 65 % (31-73) Lymphocytes (%) (Auto) 24 % (24-48) Monocytes (%) (Auto) 8 % (0-9) Eosinophils (%) (Auto) 2 % (0-3) Basophils (%) (Auto) 1 % (0-3) Neutrophils # (Auto) 6.7 x10^3/uL (1.8-7.7) Lymphocytes # (Auto) 2.5 x10^3/uL (1.0-4.8) Monocytes # (Auto) 0.9 x10^3/uL (0.0-1.1) Eosinophils # (Auto) 0.2 x10^3/uL (0.0-0.7) Basophils # (Auto) 0.1 x10^3/uL (0.0-0.2) Sodium Level 145 mmol/L (136-145) Potassium Level 3.0 mmol/L (3.5-5.1) Chloride Level 107 mmol/L (98-107) Carbon Dioxide Level 30 mmol/L (21-32) Anion Gap 8 (6-14) Blood Urea Nitrogen 11 mg/dL (8-26) Creatinine 0.7 mg/dL (0.7-1.3) Estimated GFR (Cockcroft-Gault) 137.4 BUN/Creatinine Ratio 16 (6-20) Glucose Level 96 mg/dL (70-99) Calcium Level 8.4 mg/dL (8.5-10.1) Total Bilirubin 0.2 mg/dL (0.2-1.0) Aspartate Amino Transf (AST/SGOT) 37 U/L (15-37) Alanine Aminotransferase (ALT/SGPT) 42 U/L (16-63) Alkaline Phosphatase 65 U/L (46-116) Total Protein 6.3 g/dL (6.4-8.2) Albumin 1.9 g/dL (3.4-5.0) Albumin/Globulin Ratio 0.4 (1.0-1.7) Microbiology 11/16/20 Blood Culture - Preliminary, Resulted NO GROWTH AFTER 4 DAYS 11/14/20 Gram Stain - Final, Complete 11/14/20 Aerobic and Anaerobic Culture - Final, Complete 11/14/20 Antimicrobic Susceptibility - Final, Complete 11/13/20 Urine Culture - Final, Complete Medications Current Medications Sodium Chloride 50 ml @ 50 mls/hr 1X ONCE IV ; Start 11/13/20 at 12:15; Stop 11/13/20 at 13:14; Status DC Labetalol HCl (Normodyne Iv Push) 10 mg PRN Q10MIN PRN IVP HYPERTENSION; Start 11/13/20 at 12:15 Nicardipine HCl 50 mg/Sodium Chloride 250 ml @ 25 mls/hr CONT PRN PRN IV HYPERTENSION; Start 11/13/20 at 12:15; Stop 11/18/20 at 20:54; Status DC Lorazepam (Ativan Inj) 2 mg 1X ONCE IVP Last administered on 11/13/20at 12:07; Start 11/13/20 at 12:15; Stop 11/13/20 at 12:16; Status DC Lorazepam (Ativan Inj) 2 mg STK-MED ONCE .ROUTE ; Start 11/13/20 at 12:05; Stop 11/13/20 at 12:06; Status DC Propofol 100 ml @ As Directed STK-MED ONCE IV ; Start 11/13/20 at 12:26; Stop 11/13/20 at 12:27; Status DC Piperacillin Sod/ Tazobactam Sod 3.375 gm/Sodium Chloride 50 ml @ 100 mls/hr 1X ONCE IV Last administered on 11/13/20at 13:12; Start 11/13/20 at 12:30; Stop 11/13/20 at 12:59; Status DC Vancomycin HCl 1.5 gm/Sodium Chloride 500 ml @ 250 mls/hr 1X ONCE IV Last administered on 11/13/20at 15:46; Start 11/13/20 at 13:00; Stop 11/13/20 at 14:59; Status DC Etomidate (Amidate) 20 mg 1X ONCE IV Last administered on 11/13/20at 12:21; Start 11/13/20 at 12:30; Stop 11/13/20 at 12:31; Status DC Succinylcholine Chloride (Anectine) 100 mg 1X ONCE IV Last administered on 11/13/20at 12:21; Start 11/13/20 at 12:30; Stop 11/13/20 at 12:31; Status DC Ketorolac Tromethamine (Toradol 15mg Vial) 15 mg 1X ONCE IVP Last administered on 11/13/20at 13:11; Start 11/13/20 at 12:30; Stop 11/13/20 at 12:44; Status DC Propofol 100 ml @ 2.55 mls/hr CONT PRN IV PER PROTOCOL Last administered on 11/13/20at 12:35; Start 11/13/20 at 12:30; Stop 11/14/20 at 11:24; Status DC Iohexol (Omnipaque 300 Mg/ml) 75 ml 1X ONCE IV Last administered on 11/13/20at 13:45; Start 11/13/20 at 13:45; Stop 11/13/20 at 13:46; Status DC Norepinephrine Bitartrate 8 mg/ Dextrose 258 ml @ 16.448 mls/ hr 1X ONCE IV Last administered on 11/13/20at 13:48; Start 11/13/20 at 13:45; Stop 11/14/20 at 05:26; Status DC Midazolam HCl 50 mg/Sodium Chloride 50 ml @ 0 mls/hr 1X ONCE IV Last administered on 11/13/20at 13:49; Start 11/13/20 at 13:45; Stop 11/13/20 at 13:46; Status DC Sennosides (Senna) 17.2 mg PRN BID PRN PO CONSTIPATION, 2ND CHOICE; Start 11/13/20 at 13:45 Docusate Sodium (Colace) 100 mg PRN DAILY PRN PO HARD STOOLS; Start 11/13/20 at 13:45 Ondansetron HCl (Zofran) 4 mg PRN Q6HRS PRN IVP NAUSEA/VOMITING; Start 11/13/20 at 13:45 Dextrose (Dextrose 50%-Water Syringe) 12.5 gm PRN Q15MIN PRN IV SEE COMMENTS; Start 11/13/20 at 13:45 Sodium Chloride 1,000 ml @ 100 mls/hr Q10H IV Last administered on 11/17/20at 04:19; Start 11/13/20 at 13:45; Stop 11/17/20 at 11:23; Status DC Acetaminophen (Tylenol) 650 mg PRN Q4HRS PRN PO TEMP OVER 100.4F OR MILD PAIN; Start 11/13/20 at 13:45; Stop 11/14/20 at 12:04; Status DC Enoxaparin Sodium (Lovenox 40mg Syringe) 40 mg Q24H SQ Last administered on 11/18/20at 15:09; Start 11/13/20 at 14:00 Pantoprazole Sodium (PROTONIX VIAL for IV PUSH) 40 mg DAILYAC IVP Last administered on 11/20/20at 06:16; Start 11/14/20 at 07:30 Sodium Chloride 1,000 ml @ 1,000 mls/hr 1X ONCE IV Last administered on 11/13/20at 12:30; Start 11/13/20 at 14:00; Stop 11/13/20 at 14:59; Status DC Sodium Chloride 1,000 ml @ 1,000 mls/hr 1X ONCE IV Last administered on 11/13/20at 14:00; Start 11/13/20 at 14:00; Stop 11/13/20 at 14:59; Status DC Ondansetron HCl (Zofran) 4 mg PRN Q8HRS PRN IV NAUSEA/VOMITING; Start 11/13/20 at 15:15; Stop 11/14/20 at 08:06; Status DC Morphine Sulfate (Morphine Sulfate) 4 mg PRN Q2HR PRN IV PAIN; Start 11/13/20 at 15:15; Stop 11/14/20 at 15:14; Status DC Metronidazole 100 ml @ 100 mls/hr Q12HR IV Last administered on 11/15/20at 07:22; Start 11/13/20 at 19:00; Stop 11/15/20 at 11:33; Status DC Cefepime HCl (Maxipime) 2 gm Q24H IVP Last administered on 11/14/20at 16:34; Start 11/13/20 at 17:00; Stop 11/15/20 at 11:33; Status DC Midazolam HCl 100 ml @ 1 mls/hr CONT PRN IV SEE I/O RECORD; Start 11/13/20 at 19:30; Stop 11/17/20 at 10:02; Status DC Fentanyl Citrate 30 ml @ 0 mls/hr CONT PRN IV SEE PROTOCOL; Start 11/13/20 at 19:30; Stop 11/17/20 at 10:02; Status DC Daptomycin 480 mg/ Sodium Chloride 50 ml @ 100 mls/hr Q24H IV Last administered on 11/17/20at 09:44; Start 11/14/20 at 10:00; Stop 11/17/20 at 12:40; Status DC Propofol 100 ml @ 2.322 mls/ hr CONT PRN IV PER PROTOCOL Last administered on 11/17/20at 04:19; Start 11/14/20 at 11:30; Stop 11/17/20 at 10:03; Status DC Acetaminophen (Tylenol) 650 mg PRN Q4HRS PRN PO TEMP OVER 100.4F OR MILD PAIN; Start 11/14/20 at 12:00 Haloperidol (Haldol) 4 mg BID PO Last administered on 11/17/20at 10:14; Start 11/14/20 at 12:30; Stop 11/17/20 at 21:39; Status DC Polyethylene Glycol (miraLAX PACKET) 17 gm PRN DAILY PRN PO CONSTIPATION, 1ST CHOICE; Start 11/14/20 at 12:00 Benztropine Mesylate (Cogentin) 0.5 mg BID PO Last administered on 11/20/20at 09:08; Start 11/14/20 at 12:30 Hydrochlorothiazide (Microzide) 12.5 mg DAILY PO Last administered on 11/20/20at 09:08; Start 11/14/20 at 12:30 Quetiapine Fumarate (SEROquel) 400 mg QHS PO Last administered on 11/19/20at 20:54; Start 11/14/20 at 21:00 Valproic Acid (Depakene) 500 mg BID PO Last administered on 11/15/20at 20:28; Start 11/14/20 at 12:30; Stop 11/16/20 at 09:47; Status DC Levetiracetam 500 mg/Dextrose 105 ml @ 420 mls/hr Q12HR IV Last administered on 11/18/20at 08:58; Start 11/14/20 at 12:45; Stop 11/18/20 at 13:40; Status DC Lorazepam (Ativan Inj) 2 mg PRN Q4HRS PRN IVP ANXIETY / AGITATION Last administered on 11/16/20at 09:57; Start 11/14/20 at 13:15 Micafungin Sodium 100 mg/Dextrose 100 ml @ 100 mls/hr Q24H IV Last administered on 11/19/20at 13:17; Start 11/15/20 at 12:00 Piperacillin Sod/ Tazobactam Sod 3.375 gm/Sodium Chloride 50 ml @ 100 mls/hr Q6HRS IV Last administered on 11/18/20at 05:30; Start 11/15/20 at 12:00; Stop 11/18/20 at 08:17; Status DC Valproic Acid (Depakene) 500 mg BID PEG Last administered on 11/17/20at 08:52; Start 11/16/20 at 10:00; Stop 11/18/20 at 20:55; Status DC Potassium Bicarbonate (Potassium Effervescent Tablet) 40 meq 1X ONCE PO Last administered on 11/16/20at 10:35; Start 11/16/20 at 10:00; Stop 11/16/20 at 10:01; Status DC Scopolamine (Transderm-Scop) 1 patch Q3DAYS TD Last administered on 11/19/20at 08:25; Start 11/16/20 at 11:00 Amino Acids/ Glycerin/ Electrolytes 1,000 ml @ 80 mls/hr [id number] IV Last administered on 11/20/20at 00:03; Start 11/17/20 at 11:30 Fentanyl Citrate (Fentanyl 2ml Vial) 25 mcg PRN Q4HRS PRN IVP MODERATE TO SEVERE PAIN Last administered on 11/17/20at 18:44; Start 11/17/20 at 18:45 Haloperidol Lactate (Haldol Inj) 2 mg DAILY08 IVP Last administered on 11/20/20at 09:09; Start 11/18/20 at 08:00 Ampicillin Sodium/ Sulbactam Sodium 3 gm/Sodium Chloride 100 ml @ 200 mls/hr Q6HRS IV Last administered on 11/20/20at 06:16; Start 11/18/20 at 12:00 Levetiracetam (Keppra) 500 mg BID PO Last administered on 11/20/20at 09:08; Start 11/18/20 at 21:00 Multivitamins (Thera M Plus) 1 tab DAILY PO Last administered on 11/20/20 09:08; Start 11/19/20 at 09:00 Ascorbic Acid (Vitamin C) 500 mg DAILY PO Last administered on 11/20/20at 09:08; Start 11/19/20 at 09:00 Valproic Acid (Depakene) 500 mg BID PO Last administered on 11/20/20at 09:08; Start 11/18/20 at 21:00 Lactobacillus Rhamnosus (Culturelle) 1 cap BID PO Last administered on 11/20/20at 09:08; Start 11/19/20 at 21:00 Active Scripts Active Tylenol (Acetaminophen) 325 Mg Tablet 650 Mg PO PRN Q4HRS PRN 30 Days Reported Seroquel (Quetiapine Fumarate) 400 Mg Tablet 2 Tab PO QHS Valproic Acid (Valproate Sodium) 500 Mg/10 Ml Solution 500 Mg PO BID Lisinopril 20 Mg Tablet 1 Tab PO DAILY Hydrochlorothiazide Tablet (Hydrochlorothiazide) 12.5 Mg Tablet 12.5 Mg PO DAILY Haloperidol 2 Mg Tablet 2 Tab PO BID Benztropine Mesylate 0.5 Mg Tablet 1 Tab PO BID Miralax (Polyethylene Glycol 3350) 17 Gm Powd.pack 1 Packet PO PRN DAILY PRN 2 Days dissolve in water Vitals/I & O Vital Sign - Last 24 Hours 11/19/20 11/19/20 11/19/20 11/19/20 11:00 15:00 19:00 20:00 Temp 97.6 98.0 97.9 97.6 98.0 97.9 Pulse 68 74 76 Resp 18 20 20 B/P (MAP) 161/92 (115) 150/83 (105) 157/99 (118) Pulse Ox 100 96 96 O2 Delivery Room Air Room Air Room Air Room Air 11/19/20 11/20/20 11/20/20 23:00 03:00 07:00 Temp 97.8 97.9 98.1 97.8 97.9 98.1 Pulse 76 94 85 Resp 20 20 18 B/P (MAP) 132/68 (89) 143/76 (98) 154/81 (105) Pulse Ox 96 95 95 O2 Delivery Room Air Room Air Room Air Intake and Output 11/19/20 11/19/20 11/20/20 14:52 22:52 06:52 Output Total 1200 ml Balance -1200 ml Nutrition Consultation Dietary Evaluation: Recommendations by RD: Dietary education by RD, Increase Calorie Intake, Protein supplementation, PPN/TPN Comments: Cardiac: dysphagia II/Mechanical soft/ thin liquids PPN @ 80ml/hr Expected Outcomes/Goals: new goal:to meet > 75% est nutr needs Malnutrition Findings: Body Fat Depletion (Non Severe: Mild Depletion Weight Status: Appropriate Justicifation of Admission Dx: Justifications for Admission: Justification of Admission Dx: N/A ITZEL MORALES MD November 20, 2020 10:23
[2020-11-20 11:00] VITALS: BP 143/80
[2020-11-20] MEDS: ENOXAPARIN 40 MG/0.4 ML SYRINGE. SQ SCH (12:28)
[2020-11-20] MEDS: MICAFUNGIN 100 MG in IV DEXTROSE 5% 100ML 100 ML IV SCH (12:50)
[2020-11-20] MEDS ORDERED: POTASSIUM CHLORIDE 20 MEQ TABLET.ER. PO ONE (14:15)
[2020-11-20 15:00] VITALS: BP 148/87
[2020-11-20 19:00] VITALS: BP 149/86
[2020-11-20] MEDS: QUEtiapine 100 MG TABLET. PO SCH (21:15)
[2020-11-20 23:00] VITALS: BP 169/97
[2020-11-21 03:00] VITALS: BP 140/80
[2020-11-21] MEDS: AMINO AC 3%/ELECTROLYTE/GLYCER 1,000 ML IV SCH ×3 (03:39→23:11)
[2020-11-21] MEDS: PANTOPRAZOLE IV PUSH 40 MG VIAL. IVP SCH (05:49)
[2020-11-21] MEDS: AMPICILLIN/SULBACTAM 3 GM in IV NORMAL SALINE 100ML 100 ML IV SCH ×4 (05:49→18:34)
[2020-11-21 07:00] VITALS: BP 165/89
[2020-11-21 07:56] LABS: BASO # 0.1 x10^3/uL (0.0-0.2); BASO % 1 % (0-3); EOS # 0.2 x10^3/uL (0.0-0.7); EOS % 2 % (0-3); HEMATOCRIT 24.8 % (39.0-53.0); LYMPH # 2.7 x10^3/uL (1.0-4.8); LYMPH % 28 % (24-48); MEAN CORPUSCULAR HEMOGLOBIN 27 pg (25-35); MEAN CORPUSCULAR HGB CONC 32 g/dL (31-37); MEAN CORPUSCULAR VOLUME 84 fL (79-100); MONO # 1.2 x10^3/uL (0.0-1.1); MONO % 12 % (0-9); NEUT # 5.5 x10^3/uL (1.8-7.7); NEUT % 57 % (31-73); PLATELET COUNT 423 x10^3/uL (140-400); RED BLOOD COUNT 2.96 x10^6/uL (4.30-5.70); RED CELL DISTRIBUTION WIDTH 16.6 % (11.5-14.5); WHITE BLOOD COUNT 9.6 x10^3/uL (4.0-11.0)
[2020-11-21] MEDS: LACTOBACILLUS RHAMNOSUS GG 1 CAPSULE. PO SCH ×2 (08:16→21:40)
[2020-11-21] MEDS: BENZTROPINE MESYLATE 1 MG TABLET. PO SCH ×2 (08:16→21:41)
[2020-11-21] MEDS: VALPROIC ACID (AS SODIUM SALT) 250 MG/5 ML SOLUTION. PO SCH ×2 (08:16→21:40)
[2020-11-21] MEDS: POTASSIUM CHLORIDE 20 MEQ TABLET.ER. PO SCH (08:17)
[2020-11-21] MEDS: hydroCHLOROthiazide 12.5 MG CAPSULE PO SCH (08:17)
[2020-11-21] MEDS: ASCORBIC ACID 500 MG TABLET PO SCH (08:17)
[2020-11-21] MEDS: MULTIVITAMIN with MINERAL TABLET. PO SCH (08:17)
[2020-11-21] MEDS: levETIRAcetam 500 MG TABLET PO SCH ×2 (08:17→21:41)
[2020-11-21] MEDS: HALOPERIDOL LACTATE 5 MG/ML VIAL. IVP SCH (08:18)
[2020-11-21 08:55] LABS: ALBUMIN/GLOBULIN RATIO 0.4 (1.0-1.7); CALCIUM 8.5 mg/dL (8.5-10.1); CREATININE 0.7 mg/dL (0.7-1.3); GFR 137.4; POTASSIUM 3.2 mmol/L (3.5-5.1); TOTAL BILIRUBIN 0.2 mg/dL (0.2-1.0); TOTAL PROTEIN 6.6 g/dL (6.4-8.2)
--- NOTE | 2020-11-21 09:00 | PDOC ---
PROGRESS NOTES Date of Service: DATE: 11/21/20 TIME: 09:00 Chief Complaint Chief Complaint Altered mental status, acute encephalopathy Seizure, disorder Acute respiratory failure History of schizophrenia. History of alcoholism. sepsis and bacteremia History of Present Illness History of Present Illness 11/21 Sepsis. Enterococcal bacteremia, 1 out of 4 bottles present on admission, 11/13/2020. 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 Urine cultures contamination Encephalopathy ,Seizures Continue micafungin pending susceptibilities for Lyndsay albicans on blood cultures Cont Unasyn,iv better , balderas, NEEDED replaced due to wounds, unable to use commode rehab will DC back to retirement care soon, try OOB, then likely SNU to LTC D/W RN Cont Unasyn, was on Zosyn Probiotics Monitor labs/temp Balderas changed per nursing staff Wound VAC as directed. 11/20 Sepsis. Enterococcal bacteremia, 1 out of 4 bottles present on admission, 11/13/2020. 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 Urine cultures contamination Encephalopathy ,Seizures Continue micafungin pending susceptibilities for Lyndsay albicans on blood cultures Cont Unasyn,iv better , balderas, NEEDED replaced due to wounds, unable to use commode start rehab will DC back to terminologist care soon, try OOB, then likely SNU to LTC D/W RN 11/19 better and better, DC balderas, NEEDED replaced today due to wounds, unable to use commode may get out of ICU cont current start rehab will DC back to [facility]ologist care soon, try OOB, then likely SNU to LTC 11/18, better and better, will DC the balderas may get out of ICU cont current start rehab will DC back to retirement care soon, try OOB, then likely SNU to LTC 11/17, extubated, now alert, doign well, his oldest sister was in room later and I discussed improvement and plan following bacteremia, better, he is alert, lethargic, could still be post-ictal from long repeated seizure activity 11/16 family in room, pt made DNR, will try to extubate soon, weaning vent OK he may have ongoing seizures per Neuro, 11/15/2020 Patient seen and examined Chart reviewed, spoke with nursing Currently sedated and vent weaning AC/500/14/30% on 5.0 PEEP 11/14/2020 Patient seen and examined Patient on ventilation and unconscious Stopped versaid, currently vent weaning Witnessed tremors of arms, possible seizure activity. Informed nursing and discussed starting ativan Current ventilation settings: A/C/16/500ml/40% with 5 PEEP HPI 11/13/2020 History obtained from ED physician Patient is a 64-year-old male with past medical history of alcohol dependence, anxiety, schizophrenia, hypertension who resides at [facility] who presents to the ED due to concern for altered mental status. According to the senior living patient was unresponsive and was altered from his baseline. In the ED patient required to be intubated due to possible seizure and for airway protection. No reported prior illness, changes or injury according to senior living report. Vitals Vitals Vital Signs Date Time Temp Pulse Resp B/P (MAP) Pulse Ox O2 Delivery O2 Flow Rate FiO2 11/21/20 07:00 98.2 92 18 165/89 (114) 98 Room Air 98.2 Physical Exam Physical Exam CONSTITUTIONAL: Patient alert awake looks better HEENT: Normocephalic, atraumatic. OG tube in place. Oropharynx clear. NECK: Supple. LUNGS: Decreased breath sounds at the bases. HEART: S1, S2, without murmurs. ABDOMEN: Mildly distended. No guarding. Bowel sounds present. EXTREMITIES: No edema. DERM: Warm and dry. No generalized rash. NEUROLOGIC: Alert awake BACK: Sacral wound not examined General: Alert, Cooperative, No acute distress, Other (Unconscious with ventilator ) Heart: Regular rate Lungs: Clear Abdomen: Normal bowel sounds, Soft Extremities: No clubbing, No cyanosis, Other (ichthyosis) Skin: No breakdown Labs LABS Laboratory Tests Test 11/21/20 05:45 White Blood Count 9.6 x10^3/uL (4.0-11.0) Red Blood Count 2.96 x10^6/uL (4.30-5.70) Hemoglobin 8.0 g/dL (13.0-17.5) Hematocrit 24.8 % (39.0-53.0) Mean Corpuscular Volume 84 fL (79-100) Mean Corpuscular Hemoglobin 27 pg (25-35) Mean Corpuscular Hemoglobin Concent 32 g/dL (31-37) Red Cell Distribution Width 16.6 % (11.5-14.5) Platelet Count 423 x10^3/uL (140-400) Neutrophils (%) (Auto) 57 % (31-73) Lymphocytes (%) (Auto) 28 % (24-48) Monocytes (%) (Auto) 12 % (0-9) Eosinophils (%) (Auto) 2 % (0-3) Basophils (%) (Auto) 1 % (0-3) Neutrophils # (Auto) 5.5 x10^3/uL (1.8-7.7) Lymphocytes # (Auto) 2.7 x10^3/uL (1.0-4.8) Monocytes # (Auto) 1.2 x10^3/uL (0.0-1.1) Eosinophils # (Auto) 0.2 x10^3/uL (0.0-0.7) Basophils # (Auto) 0.1 x10^3/uL (0.0-0.2) Sodium Level 145 mmol/L (136-145) Potassium Level 3.2 mmol/L (3.5-5.1) Chloride Level 106 mmol/L (98-107) Carbon Dioxide Level 32 mmol/L (21-32) Anion Gap 7 (6-14) Blood Urea Nitrogen 11 mg/dL (8-26) Creatinine 0.7 mg/dL (0.7-1.3) Estimated GFR (Cockcroft-Gault) 137.4 BUN/Creatinine Ratio 16 (6-20) Glucose Level 89 mg/dL (70-99) Calcium Level 8.5 mg/dL (8.5-10.1) Total Bilirubin 0.2 mg/dL (0.2-1.0) Aspartate Amino Transf (AST/SGOT) 28 U/L (15-37) Alanine Aminotransferase (ALT/SGPT) 35 U/L (16-63) Alkaline Phosphatase 63 U/L (46-116) Total Protein 6.6 g/dL (6.4-8.2) Albumin 2.0 g/dL (3.4-5.0) Albumin/Globulin Ratio 0.4 (1.0-1.7) Assessment and Plan Assessmemt and Plan Problems Medical Problems: (1) Acute respiratory failure Status: Acute (2) Urinary tract infection Status: Acute Comment Review of Relevant I have reviewed the following items any (where applicable) has been applied. Labs Laboratory Tests Test 11/20/20 05:30 11/21/20 05:45 White Blood Count 10.3 x10^3/uL (4.0-11.0) 9.6 x10^3/uL (4.0-11.0) Red Blood Count 2.78 x10^6/uL (4.30-5.70) 2.96 x10^6/uL (4.30-5.70) Hemoglobin 7.6 g/dL (13.0-17.5) 8.0 g/dL (13.0-17.5) Hematocrit 23.1 % (39.0-53.0) 24.8 % (39.0-53.0) Mean Corpuscular Volume 83 fL (79-100) 84 fL (79-100) Mean Corpuscular Hemoglobin 27 pg (25-35) 27 pg (25-35) Mean Corpuscular Hemoglobin Concent 33 g/dL (31-37) 32 g/dL (31-37) Red Cell Distribution Width 16.6 % (11.5-14.5) 16.6 % (11.5-14.5) Platelet Count 331 x10^3/uL (140-400) 423 x10^3/uL (140-400) Neutrophils (%) (Auto) 65 % (31-73) 57 % (31-73) Lymphocytes (%) (Auto) 24 % (24-48) 28 % (24-48) Monocytes (%) (Auto) 8 % (0-9) 12 % (0-9) Eosinophils (%) (Auto) 2 % (0-3) 2 % (0-3) Basophils (%) (Auto) 1 % (0-3) 1 % (0-3) Neutrophils # (Auto) 6.7 x10^3/uL (1.8-7.7) 5.5 x10^3/uL (1.8-7.7) Lymphocytes # (Auto) 2.5 x10^3/uL (1.0-4.8) 2.7 x10^3/uL (1.0-4.8) Monocytes # (Auto) 0.9 x10^3/uL (0.0-1.1) 1.2 x10^3/uL (0.0-1.1) Eosinophils # (Auto) 0.2 x10^3/uL (0.0-0.7) 0.2 x10^3/uL (0.0-0.7) Basophils # (Auto) 0.1 x10^3/uL (0.0-0.2) 0.1 x10^3/uL (0.0-0.2) Sodium Level 145 mmol/L (136-145) 145 mmol/L (136-145) Potassium Level 3.0 mmol/L (3.5-5.1) 3.2 mmol/L (3.5-5.1) Chloride Level 107 mmol/L (98-107) 106 mmol/L (98-107) Carbon Dioxide Level 30 mmol/L (21-32) 32 mmol/L (21-32) Anion Gap 8 (6-14) 7 (6-14) Blood Urea Nitrogen 11 mg/dL (8-26) 11 mg/dL (8-26) Creatinine 0.7 mg/dL (0.7-1.3) 0.7 mg/dL (0.7-1.3) Estimated GFR (Cockcroft-Gault) 137.4 137.4 BUN/Creatinine Ratio 16 (6-20) 16 (6-20) Glucose Level 96 mg/dL (70-99) 89 mg/dL (70-99) Calcium Level 8.4 mg/dL (8.5-10.1) 8.5 mg/dL (8.5-10.1) Total Bilirubin 0.2 mg/dL (0.2-1.0) 0.2 mg/dL (0.2-1.0) Aspartate Amino Transf (AST/SGOT) 37 U/L (15-37) 28 U/L (15-37) Alanine Aminotransferase (ALT/SGPT) 42 U/L (16-63) 35 U/L (16-63) Alkaline Phosphatase 65 U/L (46-116) 63 U/L (46-116) Total Protein 6.3 g/dL (6.4-8.2) 6.6 g/dL (6.4-8.2) Albumin 1.9 g/dL (3.4-5.0) 2.0 g/dL (3.4-5.0) Albumin/Globulin Ratio 0.4 (1.0-1.7) 0.4 (1.0-1.7) Laboratory Tests Test 11/21/20 05:45 White Blood Count 9.6 x10^3/uL (4.0-11.0) Red Blood Count 2.96 x10^6/uL (4.30-5.70) Hemoglobin 8.0 g/dL (13.0-17.5) Hematocrit 24.8 % (39.0-53.0) Mean Corpuscular Volume 84 fL (79-100) Mean Corpuscular Hemoglobin 27 pg (25-35) Mean Corpuscular Hemoglobin Concent 32 g/dL (31-37) Red Cell Distribution Width 16.6 % (11.5-14.5) Platelet Count 423 x10^3/uL (140-400) Neutrophils (%) (Auto) 57 % (31-73) Lymphocytes (%) (Auto) 28 % (24-48) Monocytes (%) (Auto) 12 % (0-9) Eosinophils (%) (Auto) 2 % (0-3) Basophils (%) (Auto) 1 % (0-3) Neutrophils # (Auto) 5.5 x10^3/uL (1.8-7.7) Lymphocytes # (Auto) 2.7 x10^3/uL (1.0-4.8) Monocytes # (Auto) 1.2 x10^3/uL (0.0-1.1) Eosinophils # (Auto) 0.2 x10^3/uL (0.0-0.7) Basophils # (Auto) 0.1 x10^3/uL (0.0-0.2) Sodium Level 145 mmol/L (136-145) Potassium Level 3.2 mmol/L (3.5-5.1) Chloride Level 106 mmol/L (98-107) Carbon Dioxide Level 32 mmol/L (21-32) Anion Gap 7 (6-14) Blood Urea Nitrogen 11 mg/dL (8-26) Creatinine 0.7 mg/dL (0.7-1.3) Estimated GFR (Cockcroft-Gault) 137.4 BUN/Creatinine Ratio 16 (6-20) Glucose Level 89 mg/dL (70-99) Calcium Level 8.5 mg/dL (8.5-10.1) Total Bilirubin 0.2 mg/dL (0.2-1.0) Aspartate Amino Transf (AST/SGOT) 28 U/L (15-37) Alanine Aminotransferase (ALT/SGPT) 35 U/L (16-63) Alkaline Phosphatase 63 U/L (46-116) Total Protein 6.6 g/dL (6.4-8.2) Albumin 2.0 g/dL (3.4-5.0) Albumin/Globulin Ratio 0.4 (1.0-1.7) Microbiology 11/16/20 Blood Culture - Final, Complete NO GROWTH AFTER 5 DAYS 11/14/20 Gram Stain - Final, Complete 11/14/20 Aerobic and Anaerobic Culture - Final, Complete 11/14/20 Antimicrobic Susceptibility - Final, Complete 11/13/20 Urine Culture - Final, Complete Medications Current Medications Sodium Chloride 50 ml @ 50 mls/hr 1X ONCE IV ; Start 11/13/20 at 12:15; Stop 11/13/20 at 13:14; Status DC Labetalol HCl (Normodyne Iv Push) 10 mg PRN Q10MIN PRN IVP HYPERTENSION; Start 11/13/20 at 12:15 Nicardipine HCl 50 mg/Sodium Chloride 250 ml @ 25 mls/hr CONT PRN PRN IV HYPERTENSION; Start 11/13/20 at 12:15; Stop 11/18/20 at 20:54; Status DC Lorazepam (Ativan Inj) 2 mg 1X ONCE IVP Last administered on 11/13/20at 12:07; Start 11/13/20 at 12:15; Stop 11/13/20 at 12:16; Status DC Lorazepam (Ativan Inj) 2 mg STK-MED ONCE .ROUTE ; Start 11/13/20 at 12:05; Stop 11/13/20 at 12:06; Status DC Propofol 100 ml @ As Directed STK-MED ONCE IV ; Start 11/13/20 at 12:26; Stop 11/13/20 at 12:27; Status DC Piperacillin Sod/ Tazobactam Sod 3.375 gm/Sodium Chloride 50 ml @ 100 mls/hr 1X ONCE IV Last administered on 11/13/20at 13:12; Start 11/13/20 at 12:30; Stop 11/13/20 at 12:59; Status DC Vancomycin HCl 1.5 gm/Sodium Chloride 500 ml @ 250 mls/hr 1X ONCE IV Last administered on 11/13/20at 15:46; Start 11/13/20 at 13:00; Stop 11/13/20 at 14:59; Status DC Etomidate (Amidate) 20 mg 1X ONCE IV Last administered on 11/13/20at 12:21; Start 11/13/20 at 12:30; Stop 11/13/20 at 12:31; Status DC Succinylcholine Chloride (Anectine) 100 mg 1X ONCE IV Last administered on 11/13/20at 12:21; Start 11/13/20 at 12:30; Stop 11/13/20 at 12:31; Status DC Ketorolac Tromethamine (Toradol 15mg Vial) 15 mg 1X ONCE IVP Last administered on 11/13/20at 13:11; Start 11/13/20 at 12:30; Stop 11/13/20 at 12:44; Status DC Propofol 100 ml @ 2.55 mls/hr CONT PRN IV PER PROTOCOL Last administered on at 12:35; Start 11/13/20 at 12:30; Stop 11/14/20 at 11:24; Status DC Iohexol (Omnipaque 300 Mg/ml) 75 ml 1X ONCE IV Last administered on 11/13/20at 13:45; Start 11/13/20 at 13:45; Stop 11/13/20 at 13:46; Status DC Norepinephrine Bitartrate 8 mg/ Dextrose 258 ml @ 16.448 mls/ hr 1X ONCE IV Last administered on 11/13/20at 13:48; Start 11/13/20 at 13:45; Stop 11/14/20 at 05:26; Status DC Midazolam HCl 50 mg/Sodium Chloride 50 ml @ 0 mls/hr 1X ONCE IV Last administered on 11/13/20at 13:49; Start 11/13/20 at 13:45; Stop 11/13/20 at 13:46; Status DC Sennosides (Senna) 17.2 mg PRN BID PRN PO CONSTIPATION, 2ND CHOICE; Start 11/13/20 at 13:45 Docusate Sodium (Colace) 100 mg PRN DAILY PRN PO HARD STOOLS; Start 11/13/20 at 13:45 Ondansetron HCl (Zofran) 4 mg PRN Q6HRS PRN IVP NAUSEA/VOMITING; Start 11/13/20 at 13:45 Dextrose (Dextrose 50%-Water Syringe) 12.5 gm PRN Q15MIN PRN IV SEE COMMENTS; Start 11/13/20 at 13:45 Sodium Chloride 1,000 ml @ 100 mls/hr Q10H IV Last administered on 11/17/20at 04:19; Start 11/13/20 at 13:45; Stop 11/17/20 at 11:23; Status DC Acetaminophen (Tylenol) 650 mg PRN Q4HRS PRN PO TEMP OVER 100.4F OR MILD PAIN; Start 11/13/20 at 13:45; Stop 11/14/20 at 12:04; Status DC Enoxaparin Sodium (Lovenox 40mg Syringe) 40 mg Q24H SQ Last administered on 11/20/20at 12:28; Start 11/13/20 at 14:00 Pantoprazole Sodium (PROTONIX VIAL for IV PUSH) 40 mg DAILYAC IVP Last administered on 11/21/20at 05:49; Start 11/14/20 at 07:30 Sodium Chloride 1,000 ml @ 1,000 mls/hr 1X ONCE IV Last administered on 11/13/20at 12:30; Start 11/13/20 at 14:00; Stop 11/13/20 at 14:59; Status DC Sodium Chloride 1,000 ml @ 1,000 mls/hr 1X ONCE IV Last administered on 11/13/20at 14:00; Start 11/13/20 at 14:00; Stop 11/13/20 at 14:59; Status DC Ondansetron HCl (Zofran) 4 mg PRN Q8HRS PRN IV NAUSEA/VOMITING; Start 11/13/20 at 15:15; Stop 11/14/20 at 08:06; Status DC Morphine Sulfate (Morphine Sulfate) 4 mg PRN Q2HR PRN IV PAIN; Start 11/13/20 at 15:15; Stop 11/14/20 at 15:14; Status DC Metronidazole 100 ml @ 100 mls/hr Q12HR IV Last administered on 11/15/20at 07:22; Start 11/13/20 at 19:00; Stop 11/15/20 at 11:33; Status DC Cefepime HCl (Maxipime) 2 gm Q24H IVP Last administered on 11/14/20at 16:34; Start 11/13/20 at 17:00; Stop 11/15/20 at 11:33; Status DC Midazolam HCl 100 ml @ 1 mls/hr CONT PRN IV SEE I/O RECORD; Start 11/13/20 at 19:30; Stop 11/17/20 at 10:02; Status DC Fentanyl Citrate 30 ml @ 0 mls/hr CONT PRN IV SEE PROTOCOL; Start 11/13/20 at 19:30; Stop 11/17/20 at 10:02; Status DC Daptomycin 480 mg/ Sodium Chloride 50 ml @ 100 mls/hr Q24H IV Last administered on 11/17/20at 09:44; Start 11/14/20 at 10:00; Stop 11/17/20 at 1 2:40; Status DC Propofol 100 ml @ 2.322 mls/ hr CONT PRN IV PER PROTOCOL Last administered on 11/17/20at 04:19; Start 11/14/20 at 11:30; Stop 11/17/20 at 10:03; Status DC Acetaminophen (Tylenol) 650 mg PRN Q4HRS PRN PO TEMP OVER 100.4F OR MILD PAIN; Start 11/14/20 at 12:00 Haloperidol (Haldol) 4 mg BID PO Last administered on 11/17/20at 10:14; Start 11/14/20 at 12:30; Stop 11/17/20 at 21:39; Status DC Polyethylene Glycol (miraLAX PACKET) 17 gm PRN DAILY PRN PO CONSTIPATION, 1ST CHOICE; Start 11/14/20 at 12:00 Benztropine Mesylate (Cogentin) 0.5 mg BID PO Last administered on 11/21/20at 08:16; Start 11/14/20 at 12:30 Hydrochlorothiazide (Microzide) 12.5 mg DAILY PO Last administered on 11/21/20at 08:17; Start 11/14/20 at 12:30 Quetiapine Fumarate (SEROquel) 400 mg QHS PO Last administered on 11/20/20 21:15; Start 11/14/20 at 21:00 Valproic Acid (Depakene) 500 mg BID PO Last administered on 11/15/20 20:28; Start 11/14/20 at 12:30; Stop 11/16/20 at 09:47; Status DC Levetiracetam 500 mg/Dextrose 105 ml @ 420 mls/hr Q12HR IV Last administered on 11/18/20 08:58; Start 11/14/20 at 12:45; Stop 11/18/20 at 13:40; Status DC Lorazepam (Ativan Inj) 2 mg PRN Q4HRS PRN IVP ANXIETY / AGITATION Last administered on 11/16/20 09:57; Start 11/14/20 at 13:15 Micafungin Sodium 100 mg/Dextrose 100 ml @ 100 mls/hr Q24H IV Last administered on 11/20/20at 12:50; Start 11/15/20 at 12:00 Piperacillin Sod/ Tazobactam Sod 3.375 gm/Sodium Chloride 50 ml @ 100 mls/hr Q6HRS IV Last administered on 11/18/20 05:30; Start 11/15/20 at 12:00; Stop 11/18/20 at 08:17; Status DC Valproic Acid (Depakene) 500 mg BID PEG Last administered on 11/17/20at 08:52; Start 11/16/20 at 10:00; Stop 11/18/20 at 20:55; Status DC Potassium Bicarbonate (Potassium Effervescent Tablet) 40 meq 1X ONCE PO Last administered on 11/16/20at 10:35; Start 11/16/20 at 10:00; Stop 11/16/20 at 10:01; Status DC Scopolamine (Transderm-Scop) 1 patch Q3DAYS TD Last administered on 11/19/20 08:25; Start 11/16/20 at 11:00 Amino Acids/ Glycerin/ Electrolytes 1,000 ml @ 80 mls/hr [id number] IV Last administered on 11/21/20 03:39; Start 11/17/20 at 11:30 Fentanyl Citrate (Fentanyl 2ml Vial) 25 mcg PRN Q4HRS PRN IVP MODERATE TO SEVERE PAIN Last administered on 11/17/20at 18:44; Start 11/17/20 at 18:45 Haloperidol Lactate (Haldol Inj) 2 mg DAILY08 IVP Last administered on 11/21/20 08:18; Start 11/18/20 at 08:00 Ampicillin Sodium/ Sulbactam Sodium 3 gm/Sodium Chloride 100 ml @ 200 mls/hr Q6HRS IV Last administered on 11/21/20 05:49; Start 11/18/20 at 12:00 Levetiracetam (Keppra) 500 mg BID PO Last administered on 11/21/20 08:17; Start 11/18/20 at 21:00 Multivitamins (Thera M Plus) 1 tab DAILY PO Last administered on 11/21/20 08:17; Start 11/19/20 at 09:00 Ascorbic Acid (Vitamin C) 500 mg DAILY PO Last administered on 11/21/20 08:17; Start 11/19/20 at 09:00 Valproic Acid (Depakene) 500 mg BID PO Last administered on 11/21/20at 08:16; Start 11/18/20 at 21:00 Lactobacillus Rhamnosus (Culturelle) 1 cap BID PO Last administered on 11/21/20 08:16; Start 11/19/20 at 21:00 Potassium Chloride (Klor-Con) 40 meq 1X ONCE PO Last administered on 11/20/20at 17:37; Start 11/20/20 at 14:15; Stop 11/20/20 at 14:18; Status DC Potassium Chloride (Klor-Con) 20 meq [id number] PO Last administered on 11/21/20at 08:17; Start 11/21/20 at 08:00 Active Scripts Active Tylenol (Acetaminophen) 325 Mg Tablet 650 Mg PO PRN Q4HRS PRN 30 Days Reported Seroquel (Quetiapine Fumarate) 400 Mg Tablet 2 Tab PO QHS Valproic Acid (Valproate Sodium) 500 Mg/10 Ml Solution 500 Mg PO BID Lisinopril 20 Mg Tablet 1 Tab PO DAILY Hydrochlorothiazide Tablet (Hydrochlorothiazide) 12.5 Mg Tablet 12.5 Mg PO DAILY Haloperidol 2 Mg Tablet 2 Tab PO BID Benztropine Mesylate 0.5 Mg Tablet 1 Tab PO BID Miralax (Polyethylene Glycol 3350) 17 Gm Powd.pack 1 Packet PO PRN DAILY PRN 2 Days dissolve in water Vitals/I & O Vital Sign - Last 24 Hours 11/20/20 11/20/20 11/20/20 11/20/20 11:00 15:00 19:00 20:00 Temp 98.0 98.0 97.8 98.0 98.0 97.8 Pulse 92 86 84 Resp 18 18 18 B/P (MAP) 143/80 (101) 148/87 (107) 149/86 (107) Pulse Ox 96 96 96 O2 Delivery Room Air Room Air Room Air Room Air 11/20/20 11/21/20 11/21/20 23:00 03:00 07:00 Temp 98.2 98.0 98.2 98.2 98.0 98.2 Pulse 83 85 92 Resp 18 18 18 B/P (MAP) 169/97 (121) 140/80 (100) 165/89 (114) Pulse Ox 97 99 98 O2 Delivery Room Air Room Air Room Air Intake and Output 11/20/20 11/20/20 11/21/20 15:00 23:00 07:00 Intake Total 480 ml 400 ml Output Total 900 ml 1000 ml Balance -420 ml -600 ml Nutrition Consultation Dietary Evaluation: Recommendations by RD: Dietary education by RD, Increase Calorie Intake, Protein supplementation, PPN/TPN Comments: Cardiac: dysphagia II/Mechanical soft/ thin liquids PPN @ 80ml/hr Expected Outcomes/Goals: new goal:to meet > 75% est nutr needs Malnutrition Findings: Body Fat Depletion (Non Severe: Mild Depletion Weight Status: Appropriate Justicifation of Admission Dx: Justifications for Admission: Justification of Admission Dx: N/A ITZEL MORALES MD November 21, 2020 09:00
--- NOTE | 2020-11-21 10:29 | PDOC ---
Infectious Disease Note Subjective Subjective Quiet No fevers PPN ROS ROS unobtainable Vital Sign Vital Signs Vital Signs Date Time Temp Pulse Resp B/P (MAP) Pulse Ox O2 Delivery O2 Flow Rate FiO2 11/21/20 07:00 98.2 92 18 165/89 (114) 98 Room Air 98.2 Physical Exam PHYSICAL EXAM GENERAL: Propped up in bed,resting, appears comfortable HEENT: Normocephalic, atraumatic. NECK: Supple. LUNGS: Clear. No accessory muscle use HEART: S1, S2, without murmurs. : [place] EXTREMITIES: Trace pedal edema. No cyanosis DERM: Warm and dry. No generalized rash. NEUROLOGIC: Opens eyes to name, no response to questions BACK: Sacral wound vac in place -not taken down PIV Labs Lab Laboratory Tests Test 11/21/20 05:45 White Blood Count 9.6 x10^3/uL (4.0-11.0) Red Blood Count 2.96 x10^6/uL (4.30-5.70) Hemoglobin 8.0 g/dL (13.0-17.5) Hematocrit 24.8 % (39.0-53.0) Mean Corpuscular Volume 84 fL (79-100) Mean Corpuscular Hemoglobin 27 pg (25-35) Mean Corpuscular Hemoglobin Concent 32 g/dL (31-37) Red Cell Distribution Width 16.6 % (11.5-14.5) Platelet Count 423 x10^3/uL (140-400) Neutrophils (%) (Auto) 57 % (31-73) Lymphocytes (%) (Auto) 28 % (24-48) Monocytes (%) (Auto) 12 % (0-9) Eosinophils (%) (Auto) 2 % (0-3) Basophils (%) (Auto) 1 % (0-3) Neutrophils # (Auto) 5.5 x10^3/uL (1.8-7.7) Lymphocytes # (Auto) 2.7 x10^3/uL (1.0-4.8) Monocytes # (Auto) 1.2 x10^3/uL (0.0-1.1) Eosinophils # (Auto) 0.2 x10^3/uL (0.0-0.7) Basophils # (Auto) 0.1 x10^3/uL (0.0-0.2) Sodium Level 145 mmol/L (136-145) Potassium Level 3.2 mmol/L (3.5-5.1) Chloride Level 106 mmol/L (98-107) Carbon Dioxide Level 32 mmol/L (21-32) Anion Gap 7 (6-14) Blood Urea Nitrogen 11 mg/dL (8-26) Creatinine 0.7 mg/dL (0.7-1.3) Estimated GFR (Cockcroft-Gault) 137.4 BUN/Creatinine Ratio 16 (6-20) Glucose Level 89 mg/dL (70-99) Calcium Level 8.5 mg/dL (8.5-10.1) Total Bilirubin 0.2 mg/dL (0.2-1.0) Aspartate Amino Transf (AST/SGOT) 28 U/L (15-37) Alanine Aminotransferase (ALT/SGPT) 35 U/L (16-63) Alkaline Phosphatase 63 U/L (46-116) Total Protein 6.6 g/dL (6.4-8.2) Albumin 2.0 g/dL (3.4-5.0) Albumin/Globulin Ratio 0.4 (1.0-1.7) Micro Microbiology 11/16/20 Blood Culture - Final, Complete NO GROWTH AFTER 5 DAYS 11/14/20 Gram Stain - Final, Complete 11/14/20 Aerobic and Anaerobic Culture - Final, Complete 11/14/20 Antimicrobic Susceptibility - Final, Complete 11/13/20 Urine Culture - Final, Complete Objective Assessment Fever. Resolved Leukocytosis - improved Sepsis. Enterococcal bacteremia, 1 out of 4 bottles present on admission, 11/13/2020. repeat BC 11/15 neg Lyndsay albicans fungemia 1 out of 4 bottles present on admission 11/13/2020. repeat BC 11/15 neg Complicated urinary tract infection with hydronephrosis, right greater than left. Urine cultures contamination Encephalopathy, seizures Acute respiratory failure, status post intubation. 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 Enterococcus, Bacteroides, Corynebacterium stratum on swab cultures. 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 History of schizophrenia History of Anxiety Plan Plan of Care Continue micafungin November 15 Discussed with micro lab for susceptibilities for Lyndsay albicans on blood cultures Cont Unasyn, was on Zosyn Probiotics Monitor labs/temp [place] changed per nursing staff Wound VAC as directed. Offload. Continue supportive care. 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 The chart was reviewed. The case was discussed. Agree with the plan of care. SIMRAN ESPARZA APRN November 21, 2020 10:29 ANGELA BRIGHT MD November 21, 2020 14:06
--- NOTE | 2020-11-21 10:32 | PDOC ---
PULMONARY PROGRESS NOTES DATE: 11/21/20 TIME: 10:29 Subjective Remains on Room air NO SOA no Cough No overnight events Vitals Vital Signs Date Time Temp Pulse Resp B/P (MAP) Pulse Ox O2 Delivery O2 Flow Rate FiO2 11/21/20 07:30 Room Air 11/21/20 07:00 98.2 92 18 165/89 (114) 98 98.2 ROS: No Nausea, No Chest Pain, No Abdominal Pain, No Increase Cough General: Alert, Oriented X4 Lungs: Clear Cardiovascular: S1, S2 Abdomen: Soft Neuro Exam: Alert, Oriented Extremities: No Edema Skin: Warm, Dry, Other (wound to coccyx with wound VAC) Labs Laboratory Tests Test 11/20/20 05:30 11/21/20 05:45 White Blood Count 10.3 x10^3/uL (4.0-11.0) 9.6 x10^3/uL (4.0-11.0) Red Blood Count 2.78 x10^6/uL (4.30-5.70) 2.96 x10^6/uL (4.30-5.70) Hemoglobin 7.6 g/dL (13.0-17.5) 8.0 g/dL (13.0-17.5) Hematocrit 23.1 % (39.0-53.0) 24.8 % (39.0-53.0) Mean Corpuscular Volume 83 fL (79-100) 84 fL (79-100) Mean Corpuscular Hemoglobin 27 pg (25-35) 27 pg (25-35) Mean Corpuscular Hemoglobin Concent 33 g/dL (31-37) 32 g/dL (31-37) Red Cell Distribution Width 16.6 % (11.5-14.5) 16.6 % (11.5-14.5) Platelet Count 331 x10^3/uL (140-400) 423 x10^3/uL (140-400) Neutrophils (%) (Auto) 65 % (31-73) 57 % (31-73) Lymphocytes (%) (Auto) 24 % (24-48) 28 % (24-48) Monocytes (%) (Auto) 8 % (0-9) 12 % (0-9) Eosinophils (%) (Auto) 2 % (0-3) 2 % (0-3) Basophils (%) (Auto) 1 % (0-3) 1 % (0-3) Neutrophils # (Auto) 6.7 x10^3/uL (1.8-7.7) 5.5 x10^3/uL (1.8-7.7) Lymphocytes # (Auto) 2.5 x10^3/uL (1.0-4.8) 2.7 x10^3/uL (1.0-4.8) Monocytes # (Auto) 0.9 x10^3/uL (0.0-1.1) 1.2 x10^3/uL (0.0-1.1) Eosinophils # (Auto) 0.2 x10^3/uL (0.0-0.7) 0.2 x10^3/uL (0.0-0.7) Basophils # (Auto) 0.1 x10^3/uL (0.0-0.2) 0.1 x10^3/uL (0.0-0.2) Sodium Level 145 mmol/L (136-145) 145 mmol/L (136-145) Potassium Level 3.0 mmol/L (3.5-5.1) 3.2 mmol/L (3.5-5.1) Chloride Level 107 mmol/L (98-107) 106 mmol/L (98-107) Carbon Dioxide Level 30 mmol/L (21-32) 32 mmol/L (21-32) Anion Gap 8 (6-14) 7 (6-14) Blood Urea Nitrogen 11 mg/dL (8-26) 11 mg/dL (8-26) Creatinine 0.7 mg/dL (0.7-1.3) 0.7 mg/dL (0.7-1.3) Estimated GFR (Cockcroft-Gault) 137.4 137.4 BUN/Creatinine Ratio 16 (6-20) 16 (6-20) Glucose Level 96 mg/dL (70-99) 89 mg/dL (70-99) Calcium Level 8.4 mg/dL (8.5-10.1) 8.5 mg/dL (8.5-10.1) Total Bilirubin 0.2 mg/dL (0.2-1.0) 0.2 mg/dL (0.2-1.0) Aspartate Amino Transf (AST/SGOT) 37 U/L (15-37) 28 U/L (15-37) Alanine Aminotransferase (ALT/SGPT) 42 U/L (16-63) 35 U/L (16-63) Alkaline Phosphatase 65 U/L (46-116) 63 U/L (46-116) Total Protein 6.3 g/dL (6.4-8.2) 6.6 g/dL (6.4-8.2) Albumin 1.9 g/dL (3.4-5.0) 2.0 g/dL (3.4-5.0) Albumin/Globulin Ratio 0.4 (1.0-1.7) 0.4 (1.0-1.7) Laboratory Tests Test 11/21/20 05:45 White Blood Count 9.6 x10^3/uL (4.0-11.0) Red Blood Count 2.96 x10^6/uL (4.30-5.70) Hemoglobin 8.0 g/dL (13.0-17.5) Hematocrit 24.8 % (39.0-53.0) Mean Corpuscular Volume 84 fL (79-100) Mean Corpuscular Hemoglobin 27 pg (25-35) Mean Corpuscular Hemoglobin Concent 32 g/dL (31-37) Red Cell Distribution Width 16.6 % (11.5-14.5) Platelet Count 423 x10^3/uL (140-400) Neutrophils (%) (Auto) 57 % (31-73) Lymphocytes (%) (Auto) 28 % (24-48) Monocytes (%) (Auto) 12 % (0-9) Eosinophils (%) (Auto) 2 % (0-3) Basophils (%) (Auto) 1 % (0-3) Neutrophils # (Auto) 5.5 x10^3/uL (1.8-7.7) Lymphocytes # (Auto) 2.7 x10^3/uL (1.0-4.8) Monocytes # (Auto) 1.2 x10^3/uL (0.0-1.1) Eosinophils # (Auto) 0.2 x10^3/uL (0.0-0.7) Basophils # (Auto) 0.1 x10^3/uL (0.0-0.2) Sodium Level 145 mmol/L (136-145) Potassium Level 3.2 mmol/L (3.5-5.1) Chloride Level 106 mmol/L (98-107) Carbon Dioxide Level 32 mmol/L (21-32) Anion Gap 7 (6-14) Blood Urea Nitrogen 11 mg/dL (8-26) Creatinine 0.7 mg/dL (0.7-1.3) Estimated GFR (Cockcroft-Gault) 137.4 BUN/Creatinine Ratio 16 (6-20) Glucose Level 89 mg/dL (70-99) Calcium Level 8.5 mg/dL (8.5-10.1) Total Bilirubin 0.2 mg/dL (0.2-1.0) Aspartate Amino Transf (AST/SGOT) 28 U/L (15-37) Alanine Aminotransferase (ALT/SGPT) 35 U/L (16-63) Alkaline Phosphatase 63 U/L (46-116) Total Protein 6.6 g/dL (6.4-8.2) Albumin 2.0 g/dL (3.4-5.0) Albumin/Globulin Ratio 0.4 (1.0-1.7) Medications Active Scripts Medications Dose Route/Sig Max Daily Dose Days Date Category Dose Instructions Seroquel (Quetiapine Fumarate) 400 Mg Tablet 2 Tab PO QHS 11/14/20 Reported Valproic Acid (Valproate Sodium) 500 Mg/10 Ml Solution 500 Mg PO BID 11/14/20 Reported Lisinopril 20 Mg Tablet 1 Tab PO DAILY 09/25/20 Reported Hydrochlorothiazide Tablet (Hydrochlorothiazide) 12.5 Mg Tablet 12.5 Mg PO DAILY 09/25/20 Reported Haloperidol 2 Mg Tablet 2 Tab PO BID 09/25/20 Reported Benztropine Mesylate 0.5 Mg Tablet 1 Tab PO BID 09/25/20 Reported Miralax (Polyethylene Glycol 3350) 17 Gm Powd.pack 1 Packet PO PRN DAILY PRN 2 09/25/20 Reported dissolve in water Tylenol (Acetaminophen) 325 Mg Tablet 650 Mg PO PRN Q4HRS PRN 30 08/03/20 Rx Impression . IMPRESSION: 1. Acute respiratory failure secondary to encephalopathy 2/2 seizure. The patient was intubated for airway protection. Recurrent seizures, --resolved 2. Metabolic encephalopathy 3. No definite infiltrate seen on the chest x-ray. 4. Adequate gas exchange on ABGs.--resolved 5. History of schizophrenia. 6. History of alcoholism. 7. Enterococcus bacteremia Plan . PLAN: Respiratory status is compensated ---on room air Follow neurology recs-- EEG showed seizure activity continue AEM/Keppra--seizure precautions Continue antibiotics per Infectious Disease-- Decubitus ulcer with wound VAC in place. Enterococcus and Corynebacterium stratum on swab cultures--repeat blood cultures no growth to date Physical therapy/Occupational Therapy/speech therapy Continue PPN for nutritional support DVT/GI PPX Plan to proceed with palliative care if patient continues to have seizures Pt. is DNR/DNI Discussed with RN we will sign off at this time please call with any questions or concerns HUGO ROSS MD November 21, 2020 10:32
[2020-11-21 11:00] VITALS: BP 146/82
--- NOTE | 2020-11-21 12:00 | PDOC ---
PROGRESS NOTES Date of Service DATE: 11/21/20 TIME: 11:58 Assessment Problems Medical Problems: (1) Acute respiratory failure Status: Acute (2) Urinary tract infection Status: Acute Drug-induced parkinsonism EEG, 11/15, shows intermittent bilateral periodic lateralizing epileptiform discharges. I suspect that he had a respiratory event and was found hypoxic causing anoxic encephalopathy. No clinical seizures since 11/16 Possible stroke symptoms earlier, nonfocal exam now with exam of course limited by his sedation. History of alcoholism, schizophrenia, other psychiatric disease Fever, leukocytosis, sepsis, gram-positive cocci bacteremia, urinary tract infection with hydronephrosis, respiratory failure, decubitus ulcer with wound VAC Extubated 11/16, is DO NOT RESUSCITATE Plan Depakene and levetiracetam Hold on brain MRI Subjective Denies pain Objective Vital Signs Date Time Temp Pulse Resp B/P (MAP) Pulse Ox O2 Delivery O2 Flow Rate FiO2 11/21/20 11:00 97.9 86 18 146/82 (103) 96 Room Air 97.9 Intake and Output 11/21/20 07:00 Intake Total 880 ml Output Total 1900 ml Balance -1020 ml Intake Oral 880 ml Output Urine Total 1900 ml # Bowel Movements 1 PHYSICAL EXAM Tells me his name, does not know date or location, does not follow commands PERRL. EOMI. CN: no focal findings. Muscle tone: normal. Muscle strength: 2-3/5 DTR: 1+ Plantar reflex: Silent Gait: not examined in bed. Sensory exam: Not cooperative Cerebellar: Not cooperative Coarse rest tremor Review of Relevant I have reviewed the following items any (where applicable) has been applied. Labs Laboratory Tests Test 11/20/20 05:30 11/21/20 05:45 White Blood Count 10.3 x10^3/uL (4.0-11.0) 9.6 x10^3/uL (4.0-11.0) Red Blood Count 2.78 x10^6/uL (4.30-5.70) 2.96 x10^6/uL (4.30-5.70) Hemoglobin 7.6 g/dL (13.0-17.5) 8.0 g/dL (13.0-17.5) Hematocrit 23.1 % (39.0-53.0) 24.8 % (39.0-53.0) Mean Corpuscular Volume 83 fL (79-100) 84 fL (79-100) Mean Corpuscular Hemoglobin 27 pg (25-35) 27 pg (25-35) Mean Corpuscular Hemoglobin Concent 33 g/dL (31-37) 32 g/dL (31-37) Red Cell Distribution Width 16.6 % (11.5-14.5) 16.6 % (11.5-14.5) Platelet Count 331 x10^3/uL (140-400) 423 x10^3/uL (140-400) Neutrophils (%) (Auto) 65 % (31-73) 57 % (31-73) Lymphocytes (%) (Auto) 24 % (24-48) 28 % (24-48) Monocytes (%) (Auto) 8 % (0-9) 12 % (0-9) Eosinophils (%) (Auto) 2 % (0-3) 2 % (0-3) Basophils (%) (Auto) 1 % (0-3) 1 % (0-3) Neutrophils # (Auto) 6.7 x10^3/uL (1.8-7.7) 5.5 x10^3/uL (1.8-7.7) Lymphocytes # (Auto) 2.5 x10^3/uL (1.0-4.8) 2.7 x10^3/uL (1.0-4.8) Monocytes # (Auto) 0.9 x10^3/uL (0.0-1.1) 1.2 x10^3/uL (0.0-1.1) Eosinophils # (Auto) 0.2 x10^3/uL (0.0-0.7) 0.2 x10^3/uL (0.0-0.7) Basophils # (Auto) 0.1 x10^3/uL (0.0-0.2) 0.1 x10^3/uL (0.0-0.2) Sodium Level 145 mmol/L (136-145) 145 mmol/L (136-145) Potassium Level 3.0 mmol/L (3.5-5.1) 3.2 mmol/L (3.5-5.1) Chloride Level 107 mmol/L (98-107) 106 mmol/L (98-107) Carbon Dioxide Level 30 mmol/L (21-32) 32 mmol/L (21-32) Anion Gap 8 (6-14) 7 (6-14) Blood Urea Nitrogen 11 mg/dL (8-26) 11 mg/dL (8-26) Creatinine 0.7 mg/dL (0.7-1.3) 0.7 mg/dL (0.7-1.3) Estimated GFR (Cockcroft-Gault) 137.4 137.4 BUN/Creatinine Ratio 16 (6-20) 16 (6-20) Glucose Level 96 mg/dL (70-99) 89 mg/dL (70-99) Calcium Level 8.4 mg/dL (8.5-10.1) 8.5 mg/dL (8.5-10.1) Total Bilirubin 0.2 mg/dL (0.2-1.0) 0.2 mg/dL (0.2-1.0) Aspartate Amino Transf (AST/SGOT) 37 U/L (15-37) 28 U/L (15-37) Alanine Aminotransferase (ALT/SGPT) 42 U/L (16-63) 35 U/L (16-63) Alkaline Phosphatase 65 U/L (46-116) 63 U/L (46-116) Total Protein 6.3 g/dL (6.4-8.2) 6.6 g/dL (6.4-8.2) Albumin 1.9 g/dL (3.4-5.0) 2.0 g/dL (3.4-5.0) Albumin/Globulin Ratio 0.4 (1.0-1.7) 0.4 (1.0-1.7) Laboratory Tests Test 11/21/20 05:45 White Blood Count 9.6 x10^3/uL (4.0-11.0) Red Blood Count 2.96 x10^6/uL (4.30-5.70) Hemoglobin 8.0 g/dL (13.0-17.5) Hematocrit 24.8 % (39.0-53.0) Mean Corpuscular Volume 84 fL (79-100) Mean Corpuscular Hemoglobin 27 pg (25-35) Mean Corpuscular Hemoglobin Concent 32 g/dL (31-37) Red Cell Distribution Width 16.6 % (11.5-14.5) Platelet Count 423 x10^3/uL (140-400) Neutrophils (%) (Auto) 57 % (31-73) Lymphocytes (%) (Auto) 28 % (24-48) Monocytes (%) (Auto) 12 % (0-9) Eosinophils (%) (Auto) 2 % (0-3) Basophils (%) (Auto) 1 % (0-3) Neutrophils # (Auto) 5.5 x10^3/uL (1.8-7.7) Lymphocytes # (Auto) 2.7 x10^3/uL (1.0-4.8) Monocytes # (Auto) 1.2 x10^3/uL (0.0-1.1) Eosinophils # (Auto) 0.2 x10^3/uL (0.0-0.7) Basophils # (Auto) 0.1 x10^3/uL (0.0-0.2) Sodium Level 145 mmol/L (136-145) Potassium Level 3.2 mmol/L (3.5-5.1) Chloride Level 106 mmol/L (98-107) Carbon Dioxide Level 32 mmol/L (21-32) Anion Gap 7 (6-14) Blood Urea Nitrogen 11 mg/dL (8-26) Creatinine 0.7 mg/dL (0.7-1.3) Estimated GFR (Cockcroft-Gault) 137.4 BUN/Creatinine Ratio 16 (6-20) Glucose Level 89 mg/dL (70-99) Calcium Level 8.5 mg/dL (8.5-10.1) Total Bilirubin 0.2 mg/dL (0.2-1.0) Aspartate Amino Transf (AST/SGOT) 28 U/L (15-37) Alanine Aminotransferase (ALT/SGPT) 35 U/L (16-63) Alkaline Phosphatase 63 U/L (46-116) Total Protein 6.6 g/dL (6.4-8.2) Albumin 2.0 g/dL (3.4-5.0) Albumin/Globulin Ratio 0.4 (1.0-1.7) Microbiology 11/16/20 Blood Culture - Final, Complete NO GROWTH AFTER 5 DAYS 11/14/20 Gram Stain - Final, Complete 11/14/20 Aerobic and Anaerobic Culture - Final, Complete 11/14/20 Antimicrobic Susceptibility - Final, Complete 11/13/20 Urine Culture - Final, Complete Medications Current Medications Sodium Chloride 50 ml @ 50 mls/hr 1X ONCE IV ; Start 11/13/20 at 12:15; Stop 11/13/20 at 13:14; Status DC Labetalol HCl (Normodyne Iv Push) 10 mg PRN Q10MIN PRN IVP HYPERTENSION; Start 11/13/20 at 12:15 Nicardipine HCl 50 mg/Sodium Chloride 250 ml @ 25 mls/hr CONT PRN PRN IV HYPERTENSION; Start 11/13/20 at 12:15; Stop 11/18/20 at 20:54; Status DC Lorazepam (Ativan Inj) 2 mg 1X ONCE IVP Last administered on 11/13/20at 12:07; Start 11/13/20 at 12:15; Stop 11/13/20 at 12:16; Status DC Lorazepam (Ativan Inj) 2 mg STK-MED ONCE .ROUTE ; Start 11/13/20 at 12:05; Stop 11/13/20 at 12:06; Status DC Propofol 100 ml @ As Directed STK-MED ONCE IV ; Start 11/13/20 at 12:26; Stop 11/13/20 at 12:27; Status DC Piperacillin Sod/ Tazobactam Sod 3.375 gm/Sodium Chloride 50 ml @ 100 mls/hr 1X ONCE IV Last administered on 11/13/20at 13:12; Start 11/13/20 at 12:30; Stop 11/13/20 at 12:59; Status DC Vancomycin HCl 1.5 gm/Sodium Chloride 500 ml @ 250 mls/hr 1X ONCE IV Last administered on 11/13/20at 15:46; Start 11/13/20 at 13:00; Stop 11/13/20 at 14:59; Status DC Etomidate (Amidate) 20 mg 1X ONCE IV Last administered on 11/13/20at 12:21; Start 11/13/20 at 12:30; Stop 11/13/20 at 12:31; Status DC Succinylcholine Chloride (Anectine) 100 mg 1X ONCE IV Last administered on 11/13/20at 12:21; Start 11/13/20 at 12:30; Stop 11/13/20 at 12:31; Status DC Ketorolac Tromethamine (Toradol 15mg Vial) 15 mg 1X ONCE IVP Last administered on 11/13/20at 13:11; Start 11/13/20 at 12:30; Stop 11/13/20 at 12:44; Status DC Propofol 100 ml @ 2.55 mls/hr CONT PRN IV PER PROTOCOL Last administered on 11/13/20at 12:35; Start 11/13/20 at 12:30; Stop 11/14/20 at 11:24; Status DC Iohexol (Omnipaque 300 Mg/ml) 75 ml 1X ONCE IV Last administered on 11/13/20at 13:45; Start 11/13/20 at 13:45; Stop 11/13/20 at 13:46; Status DC Norepinephrine Bitartrate 8 mg/ Dextrose 258 ml @ 16.448 mls/ hr 1X ONCE IV Last administered on 11/13/20at 13:48; Start 11/13/20 at 13:45; Stop 11/14/20 at 05:26; Status DC Midazolam HCl 50 mg/Sodium Chloride 50 ml @ 0 mls/hr 1X ONCE IV Last administered on 11/13/20at 13:49; Start 11/13/20 at 13:45; Stop 11/13/20 at 13:46; Status DC Sennosides (Senna) 17.2 mg PRN BID PRN PO CONSTIPATION, 2ND CHOICE; Start 11/13/20 at 13:45 Docusate Sodium (Colace) 100 mg PRN DAILY PRN PO HARD STOOLS; Start 11/13/20 at 13:45 Ondansetron HCl (Zofran) 4 mg PRN Q6HRS PRN IVP NAUSEA/VOMITING; Start 11/13/20 at 13:45 Dextrose (Dextrose 50%-Water Syringe) 12.5 gm PRN Q15MIN PRN IV SEE COMMENTS; Start 11/13/20 at 13:45 Sodium Chloride 1,000 ml @ 100 mls/hr Q10H IV Last administered on 11/17/20at 04:19; Start 11/13/20 at 13:45; Stop 11/17/20 at 11:23; Status DC Acetaminophen (Tylenol) 650 mg PRN Q4HRS PRN PO TEMP OVER 100.4F OR MILD PAIN; Start 11/13/20 at 13:45; Stop 11/14/20 at 12:04; Status DC Enoxaparin Sodium (Lovenox 40mg Syringe) 40 mg Q24H SQ Last administered on 11/20/20at 12:28; Start 11/13/20 at 14:00 Pantoprazole Sodium (PROTONIX VIAL for IV PUSH) 40 mg DAILYAC IVP Last adminis tered on 11/21/20at 05:49; Start 11/14/20 at 07:30; Stop 11/21/20 at 10:40; Status DC Sodium Chloride 1,000 ml @ 1,000 mls/hr 1X ONCE IV Last administered on 11/13/20at 12:30; Start 11/13/20 at 14:00; Stop 11/13/20 at 14:59; Status DC Sodium Chloride 1,000 ml @ 1,000 mls/hr 1X ONCE IV Last administered on 11/13/20at 14:00; Start 11/13/20 at 14:00; Stop 11/13/20 at 14:59; Status DC Ondansetron HCl (Zofran) 4 mg PRN Q8HRS PRN IV NAUSEA/VOMITING; Start 11/13/20 at 15:15; Stop 11/14/20 at 08:06; Status DC Morphine Sulfate (Morphine Sulfate) 4 mg PRN Q2HR PRN IV PAIN; Start 11/13/20 at 15:15; Stop 11/14/20 at 15:14; Status DC Metronidazole 100 ml @ 100 mls/hr Q12HR IV Last administered on 11/15/20at 07:22; Start 11/13/20 at 19:00; Stop 11/15/20 at 11:33; Status DC Cefepime HCl (Maxipime) 2 gm Q24H IVP Last administered on 11/14/20at 16:34; Start 11/13/20 at 17:00; Stop 11/15/20 at 11:33; Status DC Midazolam HCl 100 ml @ 1 mls/hr CONT PRN IV SEE I/O RECORD; Start 11/13/20 at 19:30; Stop 11/17/20 at 10:02; Status DC Fentanyl Citrate 30 ml @ 0 mls/hr CONT PRN IV SEE PROTOCOL; Start 11/13/20 at 19:30; Stop 11/17/20 at 10:02; Status DC Daptomycin 480 mg/ Sodium Chloride 50 ml @ 100 mls/hr Q24H IV Last administered on 11/17/20at 09:44; Start 11/14/20 at 10:00; Stop 11/17/20 at 12:40; Status DC Propofol 100 ml @ 2.322 mls/ hr CONT PRN IV PER PROTOCOL Last administered on 11/17/20at 04:19; Start 11/14/20 at 11:30; Stop 11/17/20 at 10:03; Status DC Acetaminophen (Tylenol) 650 mg PRN Q4HRS PRN PO TEMP OVER 100.4F OR MILD PAIN; Start 11/14/20 at 12:00 Haloperidol (Haldol) 4 mg BID PO Last administered on 11/17/20at 10:14; Start 11/14/20 at 12:30; Stop 11/17/20 at 21:39; Status DC Polyethylene Glycol (miraLAX PACKET) 17 gm PRN DAILY PRN PO CONSTIPATION, 1ST CHOICE; Start 11/14/20 at 12:00 Benztropine Mesylate (Cogentin) 0.5 mg BID PO Last administered on 11/21/20 08:16; Start 11/14/20 at 12:30 Hydrochlorothiazide (Microzide) 12.5 mg DAILY PO Last administered on 11/21/20 08:17; Start 11/14/20 at 12:30 Quetiapine Fumarate (SEROquel) 400 mg QHS PO Last administered on 11/20/20 21:15; Start 11/14/20 at 21:00 Valproic Acid (Depakene) 500 mg BID PO Last administered on 11/15/20at 20:28; Start 11/14/20 at 12:30; Stop 11/16/20 at 09:47; Status DC Levetiracetam 500 mg/Dextrose 105 ml @ 420 mls/hr Q12HR IV Last administered on 11/18/20 08:58; Start 11/14/20 at 12:45; Stop 11/18/20 at 13:40; Status DC Lorazepam (Ativan Inj) 2 mg PRN Q4HRS PRN IVP ANXIETY / AGITATION Last administered on 11/16/20at 09:57; Start 11/14/20 at 13:15 Micafungin Sodium 100 mg/Dextrose 100 ml @ 100 mls/hr Q24H IV Last administered on 11/20/20at 12:50; Start 11/15/20 at 12:00 Piperacillin Sod/ Tazobactam Sod 3.375 gm/Sodium Chloride 50 ml @ 100 mls/hr Q6HRS IV Last administered on 11/18/20at 05:30; Start 11/15/20 at 12:00; Stop 11/18/20 at 08:17; Status DC Valproic Acid (Depakene) 500 mg BID PEG Last administered on 11/17/20 08:52; Start 11/16/20 at 10:00; Stop 11/18/20 at 20:55; Status DC Potassium Bicarbonate (Potassium Effervescent Tablet) 40 meq 1X ONCE PO Last administered on 11/16/20at 10:35; Start 11/16/20 at 10:00; Stop 11/16/20 at 10:01; Status DC Scopolamine (Transderm-Scop) 1 patch Q3DAYS TD Last administered on 11/19/20at 08:25; Start 11/16/20 at 11:00 Amino Acids/ Glycerin/ Electrolytes 1,000 ml @ 80 mls/hr Q15X37T IV Last administered on 11/21/20 03:39; Start 11/17/20 at 11:30 Fentanyl Citrate (Fentanyl 2ml Vial) 25 mcg PRN Q4HRS PRN IVP MODERATE TO SEVERE PAIN Last administered on 11/17/20at 18:44; Start 11/17/20 at 18:45 Haloperidol Lactate (Haldol Inj) 2 mg DAILY08 IVP Last administered on 11/21/20at 08:18; Start 11/18/20 at 08:00 Ampicillin Sodium/ Sulbactam Sodium 3 gm/Sodium Chloride 100 ml @ 200 mls/hr Q6HRS IV Last administered on 11/21/20 05:49; Start 11/18/20 at 12:00 Levetiracetam (Keppra) 500 mg BID PO Last administered on 11/21/20 08:17; Start 11/18/20 at 21:00 Multivitamins (Thera M Plus) 1 tab DAILY PO Last administered on 11/21/20at 08:17; Start 11/19/20 at 09:00 Ascorbic Acid (Vitamin C) 500 mg DAILY PO Last administered on 11/21/20at 08:17; Start 11/19/20 at 09:00 Valproic Acid (Depakene) 500 mg BID PO Last administered on 11/21/20at 08:16; Start 11/18/20 at 21:00 Lactobacillus Rhamnosus (Culturelle) 1 cap BID PO Last administered on 11/21/20at 08:16; Start 11/19/20 at 21:00 Potassium Chloride (Klor-Con) 40 meq 1X ONCE PO Last administered on 11/20/20at 17:37; Start 11/20/20 at 14:15; Stop 11/20/20 at 14:18; Status DC Potassium Chloride (Klor-Con) 20 meq DAILYWBKFT PO Last administered on 11/21/20at 08:17; Start 11/21/20 at 08:00 Pantoprazole Sodium (Protonix) 40 mg DAILYAC PO ; Start 11/22/20 at 07:30 Active Scripts Active Tylenol (Acetaminophen) 325 Mg Tablet 650 Mg PO PRN Q4HRS PRN 30 Days Reported Seroquel (Quetiapine Fumarate) 400 Mg Tablet 2 Tab PO QHS Valproic Acid (Valproate Sodium) 500 Mg/10 Ml Solution 500 Mg PO BID Lisinopril 20 Mg Tablet 1 Tab PO DAILY Hydrochlorothiazide Tablet (Hydrochlorothiazide) 12.5 Mg Tablet 12.5 Mg PO DAILY Haloperidol 2 Mg Tablet 2 Tab PO BID Benztropine Mesylate 0.5 Mg Tablet 1 Tab PO BID Miralax (Polyethylene Glycol 3350) 17 Gm Powd.pack 1 Packet PO PRN DAILY PRN 2 Days dissolve in water Vitals/I & O Vital Sign - Last 24 Hours 11/20/20 11/20/20 11/20/20 11/20/20 15:00 19:00 20:00 23:00 Temp 98.0 97.8 98.2 98.0 97.8 98.2 Pulse 86 84 83 Resp 18 18 18 B/P (MAP) 148/87 (107) 149/86 (107) 169/97 (121) Pulse Ox 96 96 97 O2 Delivery Room Air Room Air Room Air Room Air 11/21/20 11/21/20 11/21/20 11/21/20 03:00 07:00 07:30 11:00 Temp 98.0 98.2 97.9 98.0 98.2 97.9 Pulse 85 92 86 Resp 18 18 18 B/P (MAP) 140/80 (100) 165/89 (114) 146/82 (103) Pulse Ox 99 98 96 O2 Delivery Room Air Room Air Room Air Room Air Intake and Output 11/20/20 11/20/20 11/21/20 15:00 23:00 07:00 Intake Total 480 ml 400 ml Output Total 900 ml 1000 ml Balance -420 ml -600 ml Justicifation of Admission Dx: Justifications for Admission: Justification of Admission Dx: N/A GÓMEZ ROMERO MD November 21, 2020 12:00
--- NOTE | 2020-11-21 12:00 | NUR ---
R fa IV infiltrated. Unsuccessful attempt x 1. JAMIE Mendoza stated she would attempt.
[2020-11-21] MEDS: ENOXAPARIN 40 MG/0.4 ML SYRINGE. SQ SCH (14:25)
[2020-11-21] MEDS: MICAFUNGIN 100 MG in IV DEXTROSE 5% 100ML 100 ML IV SCH (14:25)
--- NOTE | 2020-11-21 14:53 | NUR ---
SW following. Discussed with RN, pt from [facility]. PT/OT/ST recommending SNF. Pt on IV abx and has wound vac. SW spoke with Dotty at the faciltiy - they can take pt back with the wound vac and IV abx if q24. SW will continue to follow.
[2020-11-21 15:00] VITALS: BP 171/88
--- NOTE | 2020-11-21 16:16 | NUR ---
Wound/Ostomy Care Wound Type/Assessment: Wound vac in place and working, canister change, new bag of saline for [place] changed. WC will plan to change vac dressing tomorrow if pt is not discharged. Spoke with manager staffing re: POC.
[2020-11-21 19:00] VITALS: BP 185/109
[2020-11-21] MEDS: QUEtiapine 100 MG TABLET. PO SCH (21:41)
[2020-11-21 23:00] VITALS: BP 116/66
[2020-11-22] MEDS: AMPICILLIN/SULBACTAM 3 GM in IV NORMAL SALINE 100ML 100 ML IV SCH ×4 (00:03→18:13)
[2020-11-22 03:00] VITALS: BP 120/72
[2020-11-22 07:00] VITALS: BP 137/79
[2020-11-22] MEDS: MULTIVITAMIN with MINERAL TABLET. PO SCH (09:28)
[2020-11-22] MEDS: POTASSIUM CHLORIDE 20 MEQ TABLET.ER. PO SCH (09:28)
[2020-11-22] MEDS: LACTOBACILLUS RHAMNOSUS GG 1 CAPSULE. PO SCH ×2 (09:28→21:17)
[2020-11-22] MEDS: VALPROIC ACID (AS SODIUM SALT) 250 MG/5 ML SOLUTION. PO SCH ×2 (09:28→21:16)
[2020-11-22] MEDS: ASCORBIC ACID 500 MG TABLET PO SCH (09:28)
[2020-11-22] MEDS: levETIRAcetam 500 MG TABLET PO SCH ×2 (09:28→21:16)
[2020-11-22] MEDS: PANTOPRAZOLE 40 MG TABLET.DR. PO SCH (09:28)
[2020-11-22] MEDS: hydroCHLOROthiazide 12.5 MG CAPSULE PO SCH (09:28)
[2020-11-22] MEDS: BENZTROPINE MESYLATE 1 MG TABLET. PO SCH ×2 (09:28→21:17)
[2020-11-22] MEDS: SCOPOLAMINE 1.5MG PATCH. TD SCH (09:29)
[2020-11-22] MEDS: HALOPERIDOL LACTATE 5 MG/ML VIAL. IVP SCH (09:29)
--- NOTE | 2020-11-22 09:54 | PDOC ---
PROGRESS NOTES Date of Service DATE: 11/22/20 TIME: 09:53 Assessment Problems Medical Problems: (1) Acute respiratory failure Status: Acute (2) Urinary tract infection Status: Acute Drug-induced parkinsonism EEG, 11/15, shows intermittent bilateral periodic lateralizing epileptiform discharges. I suspect that he had a respiratory event and was found hypoxic causing anoxic encephalopathy. No clinical seizures since 11/16 Possible stroke symptoms earlier, nonfocal exam now with exam of course limited by his sedation. History of alcoholism, schizophrenia, other psychiatric disease Fever, leukocytosis, sepsis, gram-positive cocci bacteremia, urinary tract infection with hydronephrosis, respiratory failure, decubitus ulcer with wound VAC Extubated 11/16, is DO NOT RESUSCITATE Plan Depakene and levetiracetam Hold on brain MRI Subjective No complaints Objective Vital Signs Date Time Temp Pulse Resp B/P (MAP) Pulse Ox O2 Delivery O2 Flow Rate FiO2 11/22/20 07:00 98.3 83 16 137/79 (98) 99 Room Air 98.3 Intake and Output 11/22/20 07:00 Intake Total 2120 ml Output Total 2750 ml Balance -630 ml Intake Oral 360 ml IV Total 960 ml Other 800 ml Output Urine Total 2750 ml PHYSICAL EXAM Sleepy, arouses easily, tells me his name and location, follows commands PERRL. EOMI. CN: no focal findings. Muscle tone: normal. Muscle strength: 2-3/5 DTR: 1+ Plantar reflex: Silent Gait: not examined in bed. Sensory exam: Not cooperative Cerebellar: Not cooperative Coarse rest tremor Review of Relevant I have reviewed the following items any (where applicable) has been applied. Labs Laboratory Tests Test 11/21/20 05:45 White Blood Count 9.6 x10^3/uL (4.0-11.0) Red Blood Count 2.96 x10^6/uL (4.30-5.70) Hemoglobin 8.0 g/dL (13.0-17.5) Hematocrit 24.8 % (39.0-53.0) Mean Corpuscular Volume 84 fL (79-100) Mean Corpuscular Hemoglobin 27 pg (25-35) Mean Corpuscular Hemoglobin Concent 32 g/dL (31-37) Red Cell Distribution Width 16.6 % (11.5-14.5) Platelet Count 423 x10^3/uL (140-400) Neutrophils (%) (Auto) 57 % (31-73) Lymphocytes (%) (Auto) 28 % (24-48) Monocytes (%) (Auto) 12 % (0-9) Eosinophils (%) (Auto) 2 % (0-3) Basophils (%) (Auto) 1 % (0-3) Neutrophils # (Auto) 5.5 x10^3/uL (1.8-7.7) Lymphocytes # (Auto) 2.7 x10^3/uL (1.0-4.8) Monocytes # (Auto) 1.2 x10^3/uL (0.0-1.1) Eosinophils # (Auto) 0.2 x10^3/uL (0.0-0.7) Basophils # (Auto) 0.1 x10^3/uL (0.0-0.2) Sodium Level 145 mmol/L (136-145) Potassium Level 3.2 mmol/L (3.5-5.1) Chloride Level 106 mmol/L (98-107) Carbon Dioxide Level 32 mmol/L (21-32) Anion Gap 7 (6-14) Blood Urea Nitrogen 11 mg/dL (8-26) Creatinine 0.7 mg/dL (0.7-1.3) Estimated GFR (Cockcroft-Gault) 137.4 BUN/Creatinine Ratio 16 (6-20) Glucose Level 89 mg/dL (70-99) Calcium Level 8.5 mg/dL (8.5-10.1) Total Bilirubin 0.2 mg/dL (0.2-1.0) Aspartate Amino Transf (AST/SGOT) 28 U/L (15-37) Alanine Aminotransferase (ALT/SGPT) 35 U/L (16-63) Alkaline Phosphatase 63 U/L (46-116) Total Protein 6.6 g/dL (6.4-8.2) Albumin 2.0 g/dL (3.4-5.0) Albumin/Globulin Ratio 0.4 (1.0-1.7) Microbiology 11/16/20 Blood Culture - Final, Complete NO GROWTH AFTER 5 DAYS 11/14/20 Gram Stain - Final, Complete 11/14/20 Aerobic and Anaerobic Culture - Final, Complete 11/14/20 Antimicrobic Susceptibility - Final, Complete 11/13/20 Urine Culture - Final, Complete Medications Current Medications Sodium Chloride 50 ml @ 50 mls/hr 1X ONCE IV ; Start 11/13/20 at 12:15; Stop 11/13/20 at 13:14; Status DC Labetalol HCl (Normodyne Iv Push) 10 mg PRN Q10MIN PRN IVP HYPERTENSION; Start 11/13/20 at 12:15 Nicardipine HCl 50 mg/Sodium Chloride 250 ml @ 25 mls/hr CONT PRN PRN IV HYPERTENSION; Start 11/13/20 at 12:15; Stop 11/18/20 at 20:54; Status DC Lorazepam (Ativan Inj) 2 mg 1X ONCE IVP Last administered on 11/13/20at 12:07; Start 11/13/20 at 12:15; Stop 11/13/20 at 12:16; Status DC Lorazepam (Ativan Inj) 2 mg STK-MED ONCE .ROUTE ; Start 11/13/20 at 12:05; Stop 11/13/20 at 12:06; Status DC Propofol 100 ml @ As Directed STK-MED ONCE IV ; Start 11/13/20 at 12:26; Stop 11/13/20 at 12:27; Status DC Piperacillin Sod/ Tazobactam Sod 3.375 gm/Sodium Chloride 50 ml @ 100 mls/hr 1X ONCE IV Last administered on 11/13/20at 13:12; Start 11/13/20 at 12:30; Stop at 12:59; Status DC Vancomycin HCl 1.5 gm/Sodium Chloride 500 ml @ 250 mls/hr 1X ONCE IV Last administered on 11/13/20at 15:46; Start 11/13/20 at 13:00; Stop 11/13/20 at 14:59; Status DC Etomidate (Amidate) 20 mg 1X ONCE IV Last administered on 11/13/20at 12:21; Start 11/13/20 at 12:30; Stop 11/13/20 at 12:31; Status DC Succinylcholine Chloride (Anectine) 100 mg 1X ONCE IV Last administered on 11/13/20at 12:21; Start 11/13/20 at 12:30; Stop 11/13/20 at 12:31; Status DC Ketorolac Tromethamine (Toradol 15mg Vial) 15 mg 1X ONCE IVP Last administered on 11/13/20at 13:11; Start 11/13/20 at 12:30; Stop 11/13/20 at 12:44; Status DC Propofol 100 ml @ 2.55 mls/hr CONT PRN IV PER PROTOCOL Last administered on 11/13/20at 12:35; Start 11/13/20 at 12:30; Stop 11/14/20 at 11:24; Status DC Iohexol (Omnipaque 300 Mg/ml) 75 ml 1X ONCE IV Last administered on 11/13/20at 13:45; Start 11/13/20 at 13:45; Stop 11/13/20 at 13:46; Status DC Norepinephrine Bitartrate 8 mg/ Dextrose 258 ml @ 16.448 mls/ hr 1X ONCE IV Last administered on 11/13/20at 13:48; Start 11/13/20 at 13:45; Stop 11/14/20 at 05:26; Status DC Midazolam HCl 50 mg/Sodium Chloride 50 ml @ 0 mls/hr 1X ONCE IV Last administered on 11/13/20at 13:49; Start 11/13/20 at 13:45; Stop 11/13/20 at 13:46 ; Status DC Sennosides (Senna) 17.2 mg PRN BID PRN PO CONSTIPATION, 2ND CHOICE; Start 11/13/20 at 13:45 Docusate Sodium (Colace) 100 mg PRN DAILY PRN PO HARD STOOLS; Start 11/13/20 at 13:45 Ondansetron HCl (Zofran) 4 mg PRN Q6HRS PRN IVP NAUSEA/VOMITING; Start 11/13/20 at 13:45 Dextrose (Dextrose 50%-Water Syringe) 12.5 gm PRN Q15MIN PRN IV SEE COMMENTS; Start 11/13/20 at 13:45 Sodium Chloride 1,000 ml @ 100 mls/hr Q10H IV Last administered on 11/17/20at 04:19; Start 11/13/20 at 13:45; Stop 11/17/20 at 11:23; Status DC Acetaminophen (Tylenol) 650 mg PRN Q4HRS PRN PO TEMP OVER 100.4F OR MILD PAIN; Start 11/13/20 at 13:45; Stop 11/14/20 at 12:04; Status DC Enoxaparin Sodium (Lovenox 40mg Syringe) 40 mg Q24H SQ Last administered on 11/21/20at 14:25; Start 11/13/20 at 14:00 Pantoprazole Sodium (PROTONIX VIAL for IV PUSH) 40 mg DAILYAC IVP Last administered on 11/21/20at 05:49; Start 11/14/20 at 07:30; Stop 11/21/20 at 10:40; Status DC Sodium Chloride 1,000 ml @ 1,000 mls/hr 1X ONCE IV Last administered on 11/13/20at 12:30; Start 11/13/20 at 14:00; Stop 11/13/20 at 14:59; Status DC Sodium Chloride 1,000 ml @ 1,000 mls/hr 1X ONCE IV Last administered on 11/13/20at 14:00; Start 11/13/20 at 14:00; Stop 11/13/20 at 14:59; Status DC Ondansetron HCl (Zofran) 4 mg PRN Q8HRS PRN IV NAUSEA/VOMITING; Start 11/13/20 at 15:15; Stop 11/14/20 at 08:06; Status DC Morphine Sulfate (Morphine Sulfate) 4 mg PRN Q2HR PRN IV PAIN; Start 11/13/20 at 15:15; Stop 11/14/20 at 15:14; Status DC Metronidazole 100 ml @ 100 mls/hr Q12HR IV Last administered on 11/15/20at 07:22; Start 11/13/20 at 19:00; Stop 11/15/20 at 11:33; Status DC Cefepime HCl (Maxipime) 2 gm Q24H IVP Last administered on 11/14/20at 16:34; Start 11/13/20 at 17:00; Stop 11/15/20 at 11:33; Status DC Midazolam HCl 100 ml @ 1 mls/hr CONT PRN IV SEE I/O RECORD; Start 11/13/20 at 19:30; Stop 11/17/20 at 10:02; Status DC Fentanyl Citrate 30 ml @ 0 mls/hr CONT PRN IV SEE PROTOCOL; Start 11/13/20 at 19:30; Stop 11/17/20 at 10:02; Status DC Daptomycin 480 mg/ Sodium Chloride 50 ml @ 100 mls/hr Q24H IV Last administered on 11/17/20 09:44; Start 11/14/20 at 10:00; Stop 11/17/20 at 12:40 ; Status DC Propofol 100 ml @ 2.322 mls/ hr CONT PRN IV PER PROTOCOL Last administered on 11/17/20 04:19; Start 11/14/20 at 11:30; Stop 11/17/20 at 10:03; Status DC Acetaminophen (Tylenol) 650 mg PRN Q4HRS PRN PO TEMP OVER 100.4F OR MILD PAIN; Start 11/14/20 at 12:00 Haloperidol (Haldol) 4 mg BID PO Last administered on 11/17/20at 10:14; Start 11/14/20 at 12:30; Stop 11/17/20 at 21:39; Status DC Polyethylene Glycol (miraLAX PACKET) 17 gm PRN DAILY PRN PO CONSTIPATION, 1ST CHOICE; Start 11/14/20 at 12:00 Benztropine Mesylate (Cogentin) 0.5 mg BID PO Last administered on 11/22/20 09:28; Start 11/14/20 at 12:30 Hydrochlorothiazide (Microzide) 12.5 mg DAILY PO Last administered on 11/22/20 09:28; Start 11/14/20 at 12:30 Quetiapine Fumarate (SEROquel) 400 mg QHS PO Last administered on 11/21/20 21:41; Start 11/14/20 at 21:00 Valproic Acid (Depakene) 500 mg BID PO Last administered on 11/15/20 20:28; Start 11/14/20 at 12:30; Stop 11/16/20 at 09:47; Status DC Levetiracetam 500 mg/Dextrose 105 ml @ 420 mls/hr Q12HR IV Last administered on 11/18/20 08:58; Start 11/14/20 at 12:45; Stop 11/18/20 at 13:40; Status DC Lorazepam (Ativan Inj) 2 mg PRN Q4HRS PRN IVP ANXIETY / AGITATION Last administered on 11/16/20 09:57; Start 11/14/20 at 13:15 Micafungin Sodium 100 mg/Dextrose 100 ml @ 100 mls/hr Q24H IV Last administered on 11/21/20 14:25; Start 11/15/20 at 12:00 Piperacillin Sod/ Tazobactam Sod 3.375 gm/Sodium Chloride 50 ml @ 100 mls/hr Q6HRS IV Last administered on 11/18/20 05:30; Start 11/15/20 at 12:00; Stop 11/18/20 at 08:17; Status DC Valproic Acid (Depakene) 500 mg BID PEG Last administered on 11/17/20 08:52; Start 11/16/20 at 10:00; Stop 11/18/20 at 20:55; Status DC Potassium Bicarbonate (Potassium Effervescent Tablet) 40 meq 1X ONCE PO Last administered on 11/16/20 10:35; Start 11/16/20 at 10:00; Stop 11/16/20 at 10:01; Status DC Scopolamine (Transderm-Scop) 1 patch Q3DAYS TD Last administered on 11/22/20 09:29; Start 11/16/20 at 11:00 Amino Acids/ Glycerin/ Electrolytes 1,000 ml @ 80 mls/hr [id number] IV Last administered on 11/21/20 23:11; Start 11/17/20 at 11:30 Fentanyl Citrate (Fentanyl 2ml Vial) 25 mcg PRN Q4HRS PRN IVP MODERATE TO SEVERE PAIN Last administered on 11/17/20 18:44; Start 11/17/20 at 18:45 Haloperidol Lactate (Haldol Inj) 2 mg DAILY08 IVP Last administered on 11/22/20 09:29; Start 11/18/20 at 08:00 Ampicillin Sodium/ Sulbactam Sodium 3 gm/Sodium Chloride 100 ml @ 200 mls/hr Q6HRS IV Last administered on 11/22/20 06:09; Start 11/18/20 at 12:00 Levetiracetam (Keppra) 500 mg BID PO Last administered on 11/22/20 09:28; Start 11/18/20 at 21:00 Multivitamins (Thera M Plus) 1 tab DAILY PO Last administered on 11/22/20 09:28; Start 11/19/20 at 09:00 Ascorbic Acid (Vitamin C) 500 mg DAILY PO Last administered on 11/22/20 09:28; Start 11/19/20 at 09:00 Valproic Acid (Depakene) 500 mg BID PO Last administered on 11/22/20at 09:28; Start 11/18/20 at 21:00 Lactobacillus Rhamnosus (Culturelle) 1 cap BID PO Last administered on 11/22/20at 09:28; Start 11/19/20 at 21:00 Potassium Chloride (Klor-Con) 40 meq 1X ONCE PO Last administered on 11/20/20at 17:37; Start 11/20/20 at 14:15; Stop 11/20/20 at 14:18; Status DC Potassium Chloride (Klor-Con) 20 meq [id number] PO Last administered on 11/22/20at 09:28; Start 11/21/20 at 08:00 Pantoprazole Sodium (Protonix) 40 mg DAILYAC PO Last administered on 11/22/20at 09:28; Start 11/22/20 at 07:30 Active Scripts Active Tylenol (Acetaminophen) 325 Mg Tablet 650 Mg PO PRN Q4HRS PRN 30 Days Reported Seroquel (Quetiapine Fumarate) 400 Mg Tablet 2 Tab PO QHS Valproic Acid (Valproate Sodium) 500 Mg/10 Ml Solution 500 Mg PO BID Lisinopril 20 Mg Tablet 1 Tab PO DAILY Hydrochlorothiazide Tablet (Hydrochlorothiazide) 12.5 Mg Tablet 12.5 Mg PO DAILY Haloperidol 2 Mg Tablet 2 Tab PO BID Benztropine Mesylate 0.5 Mg Tablet 1 Tab PO BID Miralax (Polyethylene Glycol 3350) 17 Gm Powd.pack 1 Packet PO PRN DAILY PRN 2 Days dissolve in water Vitals/I & O Vital Sign - Last 24 Hours 11/21/20 11/21/20 11/21/20 11/21/20 11:00 15:00 19:00 19:40 Temp 97.9 98.3 98.0 97.9 98.3 98.0 Pulse 86 87 101 Resp 18 19 19 B/P (MAP) 146/82 (103) 171/88 (115) 185/109 (134) Pulse Ox 96 96 94 O2 Delivery Room Air Room Air Room Air Room Air 11/21/20 11/22/20 11/22/20 23:00 03:00 07:00 Temp 99.6 98.5 98.3 99.6 98.5 98.3 Pulse 119 100 83 Resp 19 19 16 B/P (MAP) 116/66 (83) 120/72 (88) 137/79 (98) Pulse Ox 94 98 99 O2 Delivery Room Air Room Air Room Air Intake and Output 11/21/20 11/21/20 11/22/20 15:00 23:00 07:00 Intake Total 2120 ml Output Total 2750 ml Balance -630 ml Justicifation of Admission Dx: Justifications for Admission: Justification of Admission Dx: N/A GÓMEZ ROMERO MD November 22, 2020 09:54
--- NOTE | 2020-11-22 09:57 | PDOC ---
Infectious Disease Note Subjective Subjective Says feeling ok. No fevers last 24 hrs No diarrhea reported ROS ROS Limited due to patient's condition Vital Sign Vital Signs Vital Signs Date Time Temp Pulse Resp B/P (MAP) Pulse Ox O2 Delivery O2 Flow Rate FiO2 11/22/20 07:00 98.3 83 16 137/79 (98) 99 Room Air 98.3 Physical Exam PHYSICAL EXAM GENERAL: Propped up in bed, awake, appears comfortable HEENT: Normocephalic, atraumatic. Oral cavity clear NECK: Supple. LUNGS: Clear. No accessory muscle use HEART: S1, S2, without murmurs. ABDOMEN: Obese, soft and nontender. + BS : [place] EXTREMITIES: Trace pedal edema. No cyanosis. Right hand swollen (IV infiltrated) DERM: Warm and dry. No generalized rash. Sacral wound vac in place -not taken down NEUROLOGIC: Awake, answered one question, one word response, follows commands PIV Labs Micro Objective Assessment Fever. Resolved Leukocytosis - improved Sepsis. Enterococcal bacteremia, 1 out of 4 bottles present on admission, 11/13/2020. r epeat BC 11/15 neg Lyndsay albicans fungemia 1 out of 4 bottles present on admission 11/13/2020. repeat BC 11/15 neg Complicated urinary tract infection with hydronephrosis, right greater than left. Urine cultures contamination Encephalopathy, seizures Acute respiratory failure, status post intubation. Now extubated Chronic nonhealing archana IV sacral decubitus ulcer infection w/ Enterococcus, Bacteroides, Corynebacterium stratum on swab cultures. 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 History of schizophrenia History of Anxiety IV infiltration right hand Plan Plan of Care Continue micafungin November 15 Lyndsay albicans sensitivities on blood cultures still pending Cont Unasyn, was on Zosyn Probiotics Monitor labs/temp [place] changed per nursing staff Wound care/vera flow vac in place as directed. Offload. Supportive care. Discussed with nursing May need LTAC Will need at least 2 weeks of therapy for fungemia EEG reviewed Cont Unasyn for now Attending Co-Sign Attending Co-Sign The patient was seen and interviewed as well as examined at the bedside. The chart was reviewed. The case was discussed. Agree with the plan of care. SIMRAN ESPARZA APRN November 22, 2020 09:56 ANGELA BRIGHT MD November 22, 2020 14:05
--- NOTE | 2020-11-22 09:57 | PDOC ---
DATE DATE OF STUDY 11/15/20 EEG STUDY RESULTS EEG STUDY RESULTS OBJECTIVE: The patient is a 64-year-old male with tremors versus seizures. DESCRIPTION: This is a digital study. Electrodes were placed according to the international 10-20 system. Bipolar and referential montages are available. Activation procedures typically include hyperventilation and intermittent photic stimulation. INTERPRETATION: The waking background consists of 6-7 Hz, 20-50 microvolt activity, symmetrically distributed over parietooccipital regions. Later near the end of the recording, there are periodic lateralizing epileptiform discharges bilaterally. Episodes last about 4-6 seconds. Hyperventilation is not performed. Intermittent photic stimulation is noncontributory. IMPRESSION: This electroencephalogram with the patient in the obtunded state is abnormal because of a diffuse disturbance of cerebral activity as well as epileptic activity bilaterally. Periodic lateralizing epileptiform discharges are usually a poor prognosis. Thank you for letting us help with the patient's care. GÓMEZ ROMERO MD November 22, 2020 09:57
[2020-11-22 11:00] VITALS: BP 145/77
[2020-11-22] MEDS: MICAFUNGIN 100 MG in IV DEXTROSE 5% 100ML 100 ML IV SCH (12:30)
--- NOTE | 2020-11-22 14:46 | PDOC ---
PROGRESS NOTES Date of Service: DATE: 11/22/20 TIME: 14:44 Chief Complaint Chief Complaint Altered mental status, acute encephalopathy Seizure, disorder Acute respiratory failure History of schizophrenia. History of alcoholism. sepsis and bacteremia History of Present Illness History of Present Illness 11/22 Sepsis. Enterococcal bacteremia, 1 out of 4 bottles present on admission, 11/13/2020. 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 Urine cultures contamination Encephalopathy ,Seizures Continue micafungin pending susceptibilities for Lyndsay albicans on blood cultures Cont Unasyn,iv better , balderas, NEEDED replaced due to wounds, unable to use commode rehab will DC back to [facility] care soon, try OOB, then likely SNU to LT D/W RN Cont Unasyn, was on Zosyn Probiotics Monitor labs/temp Balderas changed per nursing staff Wound VAC as directed. 11/21 Sepsis. Enterococcal bacteremia, 1 out of 4 bottles present on admission, 11/13/2020. 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 Urine cultures contamination Encephalopathy ,Seizures Continue micafungin pending susceptibilities for Lyndsay albicans on blood cultures Cont Unasyn,iv better , balderas, NEEDED replaced due to wounds, unable to use commode rehab will DC back to [facility] care soon, try OOB, then likely SNU to [facility] D/W RN Cont Unasyn, was on Zosyn Probiotics Monitor labs/temp Balderas changed per nursing staff Wound VAC as directed. 11/20 Sepsis. Enterococcal bacteremia, 1 out of 4 bottles present on admission, 11/13/2020. 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 Urine cultures contamination Encephalopathy ,Seizures Continue micafungin pending susceptibilities for Lyndsay albicans on blood cultures Cont Unasyn,iv better , balderas, NEEDED replaced due to wounds, unable to use commode start rehab will DC back to [facility] care soon, try OOB, then likely SNU to LT D/W RN 11/19 better and better, DC balderas, NEEDED replaced today due to wounds, unable to use commode may get out of ICU cont current start rehab will DC back to terminal worker care soon, try OOB, then likely SNU to LTC 11/18, better and better, will DC the balderas may get out of ICU cont current start rehab will DC back to terminal worker care soon, try OOB, then likely SNU to LTC 11/17, extubated, now alert, doign well, his oldest sister was in room later and I discussed improvement and plan following bacteremia, better, he is alert, lethargic, could still be post-ictal from long repeated seizure activity 11/16 family in room, pt made DNR, will try to extubate soon, weaning vent OK he may have ongoing seizures per Neuro, 11/15/2020 Patient seen and examined Chart reviewed, spoke with nursing Currently sedated and vent weaning AC/500/14/30% on 5.0 PEEP 11/14/2020 Patient seen and examined Patient on ventilation and unconscious Stopped versaid, currently vent weaning Witnessed tremors of arms, possible seizure activity. Informed nursing and discussed starting ativan Current ventilation settings: A/C/16/500ml/40% with 5 PEEP HPI 11/13/2020 History obtained from ED physician Patient is a 64-year-old male with past medical history of alcohol dependence, anxiety, schizophrenia, hypertension who resides at [facility] who presents to the ED due to concern for altered mental status. According to the correction patient was unresponsive and was altered from his baseline. In the ED patient required to be intubated due to possible seizure and for airway protection. No reported prior illness, changes or injury according to correction report. Vitals Vitals Vital Signs Date Time Temp Pulse Resp B/P (MAP) Pulse Ox O2 Delivery O2 Flow Rate FiO2 11/22/20 11:00 98.4 90 16 145/77 (99) 97 Room Air 98.4 Physical Exam Physical Exam GENERAL: Propped up in bed, awake, appears comfortable HEENT: Normocephalic, atraumatic. Oral cavity clear NECK: Supple. LUNGS: Clear. No accessory muscle use HEART: S1, S2, without murmurs. ABDOMEN: Obese, soft and nontender. + BS : Balderas EXTREMITIES: Trace pedal edema. No cyanosis. Right hand swollen (IV infiltrated) DERM: Warm and dry. No generalized rash. Sacral wound vac in place -not taken down NEUROLOGIC: Awake, answered one question, one word response, follows commands PIV General: Alert, Cooperative, No acute distress, Other (CONFUSED TO DETAILS ) Heart: Regular rate, Normal S1 Lungs: Clear Abdomen: Normal bowel sounds, Soft Extremities: No clubbing, No cyanosis, Other (ichthyosis) Skin: No breakdown Assessment and Plan Assessmemt and Plan Problems Medical Problems: (1) Acute respiratory failure Status: Acute (2) Urinary tract infection Status: Acute Comment Review of Relevant I have reviewed the following items any (where applicable) has been applied. Labs Laboratory Tests Test 11/21/20 05:45 White Blood Count 9.6 x10^3/uL (4.0-11.0) Red Blood Count 2.96 x10^6/uL (4.30-5.70) Hemoglobin 8.0 g/dL (13.0-17.5) Hematocrit 24.8 % (39.0-53.0) Mean Corpuscular Volume 84 fL (79-100) Mean Corpuscular Hemoglobin 27 pg (25-35) Mean Corpuscular Hemoglobin Concent 32 g/dL (31-37) Red Cell Distribution Width 16.6 % (11.5-14.5) Platelet Count 423 x10^3/uL (140-400) Neutrophils (%) (Auto) 57 % (31-73) Lymphocytes (%) (Auto) 28 % (24-48) Monocytes (%) (Auto) 12 % (0-9) Eosinophils (%) (Auto) 2 % (0-3) Basophils (%) (Auto) 1 % (0-3) Neutrophils # (Auto) 5.5 x10^3/uL (1.8-7.7) Lymphocytes # (Auto) 2.7 x10^3/uL (1.0-4.8) Monocytes # (Auto) 1.2 x10^3/uL (0.0-1.1) Eosinophils # (Auto) 0.2 x10^3/uL (0.0-0.7) Basophils # (Auto) 0.1 x10^3/uL (0.0-0.2) Sodium Level 145 mmol/L (136-145) Potassium Level 3.2 mmol/L (3.5-5.1) Chloride Level 106 mmol/L (98-107) Carbon Dioxide Level 32 mmol/L (21-32) Anion Gap 7 (6-14) Blood Urea Nitrogen 11 mg/dL (8-26) Creatinine 0.7 mg/dL (0.7-1.3) Estimated GFR (Cockcroft-Gault) 137.4 BUN/Creatinine Ratio 16 (6-20) Glucose Level 89 mg/dL (70-99) Calcium Level 8.5 mg/dL (8.5-10.1) Total Bilirubin 0.2 mg/dL (0.2-1.0) Aspartate Amino Transf (AST/SGOT) 28 U/L (15-37) Alanine Aminotransferase (ALT/SGPT) 35 U/L (16-63) Alkaline Phosphatase 63 U/L (46-116) Total Protein 6.6 g/dL (6.4-8.2) Albumin 2.0 g/dL (3.4-5.0) Albumin/Globulin Ratio 0.4 (1.0-1.7) Microbiology 11/16/20 Blood Culture - Final, Complete NO GROWTH AFTER 5 DAYS 11/14/20 Gram Stain - Final, Complete 11/14/20 Aerobic and Anaerobic Culture - Final, Complete 11/14/20 Antimicrobic Susceptibility - Final, Complete 11/13/20 Urine Culture - Final, Complete Medications Current Medications Sodium Chloride 50 ml @ 50 mls/hr 1X ONCE IV ; Start 11/13/20 at 12:15; Stop 11/13/20 at 13:14; Status DC Labetalol HCl (Normodyne Iv Push) 10 mg PRN Q10MIN PRN IVP HYPERTENSION; Start 11/13/20 at 12:15 Nicardipine HCl 50 mg/Sodium Chloride 250 ml @ 25 mls/hr CONT PRN PRN IV HYPERTENSION; Start 11/13/20 at 12:15; Stop 11/18/20 at 20:54; Status DC Lorazepam (Ativan Inj) 2 mg 1X ONCE IVP Last administered on 11/13/20at 12:07; Start 11/13/20 at 12:15; Stop 11/13/20 at 12:16; Status DC Lorazepam (Ativan Inj) 2 mg STK-MED ONCE .ROUTE ; Start 11/13/20 at 12:05; Stop 11/13/20 at 12:06; Status DC Propofol 100 ml @ As Directed STK-MED ONCE IV ; Start 11/13/20 at 12:26; Stop 11/13/20 at 12:27; Status DC Piperacillin Sod/ Tazobactam Sod 3.375 gm/Sodium Chloride 50 ml @ 100 mls/hr 1X ONCE IV Last administered on 11/13/20at 13:12; Start 11/13/20 at 12:30; Stop 11/13/20 at 12:59; Status DC Vancomycin HCl 1.5 gm/Sodium Chloride 500 ml @ 250 mls/hr 1X ONCE IV Last administered on 11/13/20at 15:46; Start 11/13/20 at 13:00; Stop 11/13/20 at 14:59; Status DC Etomidate (Amidate) 20 mg 1X ONCE IV Last administered on 11/13/20at 12:21; Start 11/13/20 at 12:30; Stop 11/13/20 at 12:31; Status DC Succinylcholine Chloride (Anectine) 100 mg 1X ONCE IV Last administered on 11/13/20at 12:21; Start 11/13/20 at 12:30; Stop 11/13/20 at 12:31; Status DC Ketorolac Tromethamine (Toradol 15mg Vial) 15 mg 1X ONCE IVP Last administered on 11/13/20at 13:11; Start 11/13/20 at 12:30; Stop 11/13/20 at 12:44; Status DC Propofol 100 ml @ 2.55 mls/hr CONT PRN IV PER PROTOCOL Last administered on 11/13/20at 12:35; Start 11/13/20 at 12:30; Stop 11/14/20 at 11:24; Status DC Iohexol (Omnipaque 300 Mg/ml) 75 ml 1X ONCE IV Last administered on 11/13/20at 13:45; Start 11/13/20 at 13:45; Stop 11/13/20 at 13:46; Status DC Norepinephrine Bitartrate 8 mg/ Dextrose 258 ml @ 16.448 mls/ hr 1X ONCE IV Last administered on 11/13/20at 13:48; Start 11/13/20 at 13:45; Stop 11/14/20 at 05:26; Status DC Midazolam HCl 50 mg/Sodium Chloride 50 ml @ 0 mls/hr 1X ONCE IV Last administered on 11/13/20at 13:49; Start 11/13/20 at 13:45; Stop 11/13/20 at 13:46; Status DC Sennosides (Senna) 17.2 mg PRN BID PRN PO CONSTIPATION, 2ND CHOICE; Start 11/13/20 at 13:45 Docusate Sodium (Colace) 100 mg PRN DAILY PRN PO HARD STOOLS; Start 11/13/20 at 13:45 Ondansetron HCl (Zofran) 4 mg PRN Q6HRS PRN IVP NAUSEA/VOMITING; Start 11/13/20 at 13:45 Dextrose (Dextrose 50%-Water Syringe) 12.5 gm PRN Q15MIN PRN IV SEE COMMENTS; Start 11/13/20 at 13:45 Sodium Chloride 1,000 ml @ 100 mls/hr Q10H IV Last administered on 11/17/20at 04:19; Start 11/13/20 at 13:45; Stop 11/17/20 at 11:23; Status DC Acetaminophen (Tylenol) 650 mg PRN Q4HRS PRN PO TEMP OVER 100.4F OR MILD PAIN; Start 11/13/20 at 13:45; Stop 11/14/20 at 12:04; Status DC Enoxaparin Sodium (Lovenox 40mg Syringe) 40 mg Q24H SQ Last administered on 11/21/20at 14:25; Start 11/13/20 at 14:00 Pantoprazole Sodium (PROTONIX VIAL for IV PUSH) 40 mg DAILYAC IVP Last administered on 11/21/20at 05:49; Start 11/14/20 at 07:30; Stop 11/21/20 at 10:40; Status DC Sodium Chloride 1,000 ml @ 1,000 mls/hr 1X ONCE IV Last administered on 11/13/20at 12:30; Start 11/13/20 at 14:00; Stop 11/13/20 at 14:59; Status DC Sodium Chloride 1,000 ml @ 1,000 mls/hr 1X ONCE IV Last administered on 11/13/20at 14:00; Start 11/13/20 at 14:00; Stop 11/13/20 at 14:59; Status DC Ondansetron HCl (Zofran) 4 mg PRN Q8HRS PRN IV NAUSEA/VOMITING; Start 11/13/20 at 15:15; Stop 11/14/20 at 08:06; Status DC Morphine Sulfate (Morphine Sulfate) 4 mg PRN Q2HR PRN IV PAIN; Start 11/13/20 at 15:15; Stop 11/14/20 at 15:14; Status DC Metronidazole 100 ml @ 100 mls/hr Q12HR IV Last administered on 11/15/20at 07:22; Start 11/13/20 at 19:00; Stop 11/15/20 at 11:33; Status DC Cefepime HCl (Maxipime) 2 gm Q24H IVP Last administered on 11/14/20at 16:34; Start 11/13/20 at 17:00; Stop 11/15/20 at 11:33; Status DC Midazolam HCl 100 ml @ 1 mls/hr CONT PRN IV SEE I/O RECORD; Start 11/13/20 at 19:30; Stop 11/17/20 at 10:02; Status DC Fentanyl Citrate 30 ml @ 0 mls/hr CONT PRN IV SEE PROTOCOL; Start 11/13/20 at 19:30; Stop 11/17/20 at 10:02; Status DC Daptomycin 480 mg/ Sodium Chloride 50 ml @ 100 mls/hr Q24H IV Last administered on 11/17/20at 09:44; Start 11/14/20 at 10:00; Stop 11/17/20 at 12:40; Status DC Propofol 100 ml @ 2.322 mls/ hr CONT PRN IV PER PROTOCOL Last administered on 11/17/20at 04:19; Start 11/14/20 at 11:30; Stop 11/17/20 at 10:03; Status DC Acetaminophen (Tylenol) 650 mg PRN Q4HRS PRN PO TEMP OVER 100.4F OR MILD PAIN; Start 11/14/20 at 12:00 Haloperidol (Haldol) 4 mg BID PO Last administered on 11/17/20at 10:14; Start 11/14/20 at 12:30; Stop 11/17/20 at 21:39; Status DC Polyethylene Glycol (miraLAX PACKET) 17 gm PRN DAILY PRN PO CONSTIPATION, 1ST CHOICE; Start 11/14/20 at 12:00 Benztropine Mesylate (Cogentin) 0.5 mg BID PO Last administered on 11/22/20 09:28; Start 11/14/20 at 12:30 Hydrochlorothiazide (Microzide) 12.5 mg DAILY PO Last administered on 11/22/20 09:28; Start 11/14/20 at 12:30 Quetiapine Fumarate (SEROquel) 400 mg QHS PO Last administered on 11/21/20 21:41; Start 11/14/20 at 21:00 Valproic Acid (Depakene) 500 mg BID PO Last administered on 11/15/20 20:28; Start 11/14/20 at 12:30; Stop 11/16/20 at 09:47; Status DC Levetiracetam 500 mg/Dextrose 105 ml @ 420 mls/hr Q12HR IV Last administered on 11/18/20 08:58; Start 11/14/20 at 12:45; Stop 11/18/20 at 13:40; Status DC Lorazepam (Ativan Inj) 2 mg PRN Q4HRS PRN IVP ANXIETY / AGITATION Last administered on 11/16/20 09:57; Start 11/14/20 at 13:15 Micafungin Sodium 100 mg/Dextrose 100 ml @ 100 mls/hr Q24H IV Last administered on 11/22/20 12:30; Start 11/15/20 at 12:00 Piperacillin Sod/ Tazobactam Sod 3.375 gm/Sodium Chloride 50 ml @ 100 mls/hr Q6HRS IV Last administered on 11/18/20 05:30; Start 11/15/20 at 12:00; Stop 11/18/20 at 08:17; Status DC Valproic Acid (Depakene) 500 mg BID PEG Last administered on 11/17/20 08:52; Start 11/16/20 at 10:00; Stop 11/18/20 at 20:55; Status DC Potassium Bicarbonate (Potassium Effervescent Tablet) 40 meq 1X ONCE PO Last administered on 11/16/20at 10:35; Start 11/16/20 at 10:00; Stop 11/16/20 at 10:01; Status DC Scopolamine (Transderm-Scop) 1 patch Q3DAYS TD Last administered on 11/22/20 09:29; Start 11/16/20 at 11:00 Amino Acids/ Glycerin/ Electrolytes 1,000 ml @ 80 mls/hr [id number] IV Last administered on 11/21/20 23:11; Start 11/17/20 at 11:30 Fentanyl Citrate (Fentanyl 2ml Vial) 25 mcg PRN Q4HRS PRN IVP MODERATE TO SEVERE PAIN Last administered on 11/17/20 18:44; Start 11/17/20 at 18:45 Haloperidol Lactate (Haldol Inj) 2 mg DAILY08 IVP Last administered on 11/22/20 09:29; Start 11/18/20 at 08:00 Ampicillin Sodium/ Sulbactam Sodium 3 gm/Sodium Chloride 100 ml @ 200 mls/hr Q6HRS IV Last administered on 11/22/20 11:23; Start 11/18/20 at 12:00 Levetiracetam (Keppra) 500 mg BID PO Last administered on 11/22/20 09:28; Start 11/18/20 at 21:00 Multivitamins (Thera M Plus) 1 tab DAILY PO Last administered on 11/22/20 09:28; Start 11/19/20 at 09:00 Ascorbic Acid (Vitamin C) 500 mg DAILY PO Last administered on 11/22/20 09:28; Start 11/19/20 at 09:00 Valproic Acid (Depakene) 500 mg BID PO Last administered on 11/22/20 09:28; Start 11/18/20 at 21:00 Lactobacillus Rhamnosus (Culturelle) 1 cap BID PO Last administered on 11/22/20 09:28; Start 11/19/20 at 21:00 Potassium Chloride (Klor-Con) 40 meq 1X ONCE PO Last administered on 11/20/20 17:37; Start 11/20/20 at 14:15; Stop 11/20/20 at 14:18; Status DC Potassium Chloride (Klor-Con) 20 meq [id number] PO Last administered on 11/22/20 09:28; Start 11/21/20 at 08:00 Pantoprazole Sodium (Protonix) 40 mg DAILYAC PO Last administered on 11/22/20 09:28; Start 11/22/20 at 07:30 Active Scripts Active Tylenol (Acetaminophen) 325 Mg Tablet 650 Mg PO PRN Q4HRS PRN 30 Days Reported Seroquel (Quetiapine Fumarate) 400 Mg Tablet 2 Tab PO QHS Valproic Acid (Valproate Sodium) 500 Mg/10 Ml Solution 500 Mg PO BID Lisinopril 20 Mg Tablet 1 Tab PO DAILY Hydrochlorothiazide Tablet (Hydrochlorothiazide) 12.5 Mg Tablet 12.5 Mg PO DAILY Haloperidol 2 Mg Tablet 2 Tab PO BID Benztropine Mesylate 0.5 Mg Tablet 1 Tab PO BID Miralax (Polyethylene Glycol 3350) 17 Gm Powd.pack 1 Packet PO PRN DAILY PRN 2 Days dissolve in water Vitals/I & O Vital Sign - Last 24 Hours 11/21/20 11/21/20 11/21/20 11/21/20 15:00 19:00 19:40 23:00 Temp 98.3 98.0 99.6 98.3 98.0 99.6 Pulse 87 101 119 Resp 19 19 19 B/P (MAP) 171/88 (115) 185/109 (134) 116/66 (83) Pulse Ox 96 94 94 O2 Delivery Room Air Room Air Room Air Room Air 11/22/20 11/22/20 11/22/20 11/22/20 03:00 07:00 07:40 11:00 Temp 98.5 98.3 98.4 98.5 98.3 98.4 Pulse 100 83 90 Resp 19 16 16 B/P (MAP) 120/72 (88) 137/79 (98) 145/77 (99) Pulse Ox 98 99 97 O2 Delivery Room Air Room Air Room Air Room Air Intake and Output 11/21/20 11/21/20 11/22/20 15:00 23:00 07:00 Intake Total 2120 ml Output Total 2750 ml Balance -630 ml Nutrition Consultation Dietary Evaluation: Recommendations by RD: Dietary education by RD, Increase Calorie Intake, Protein supplementation, PPN/TPN Comments: Cardiac: dysphagia I/thin liquids Miguelangel BID Ensure q day REC d/c PPN when po intake is consistantly >50% meals. Expected Outcomes/Goals: new goal:to meet > 75% est nutr needs Malnutrition Findings: Body Fat Depletion (Non Severe: Mild Depletion Weight Status: Appropriate Justicifation of Admission Dx: Justifications for Admission: Justification of Admission Dx: N/A ITZEL MORALES MD November 22, 2020 14:46
[2020-11-22 15:00] VITALS: BP 146/70
[2020-11-22] MEDS ORDERED: POTASSIUM CHLORIDE 20 MEQ TABLET.ER. PO ONE (15:00)
[2020-11-22] MEDS: ENOXAPARIN 40 MG/0.4 ML SYRINGE. SQ SCH (15:05)
--- NOTE | 2020-11-22 16:00 | NUR ---
Wound Care Wound Type/Assessment: Follow up for routine wound vac dressing change. One piece of black foam removed, cleansed. Wound bed clean with red granulation and exposed muscle, margins thickened and macerated. 4" ostomy ring placd on periwound, Packed with one piece of black foam and bridged to R lateral thigh. Good seal achieved. Veraflow settings at 20mL NS x3mins Q3H, suction @ 125mmhG continuous. Treatment Recommendations/Plan: Wound Care will follow while inpatient to manage wound vac dressings. L heel: Cover with dry foam for protection Education provided: Pt not appropriate for education due to mental status Offloading surface/device: Pt on P500 bed, turned with purple wedge to L side, heels floated with pillows Recommended Referrals/Tests: NA Discharge Recommendations for dressings: As above
[2020-11-22] MEDS: AMINO AC 3%/ELECTROLYTE/GLYCER 1,000 ML IV SCH ×2 (16:30→18:19)
[2020-11-22 19:00] VITALS: BP 182/99
[2020-11-22] MEDS: QUEtiapine 100 MG TABLET. PO SCH (21:16)
[2020-11-22 23:00] VITALS: BP 146/87
[2020-11-23] MEDS: AMPICILLIN/SULBACTAM 3 GM in IV NORMAL SALINE 100ML 100 ML IV SCH ×2 (00:22→05:48)
[2020-11-23 03:00] VITALS: BP 161/94
[2020-11-23] MEDS: PANTOPRAZOLE 40 MG TABLET.DR. PO SCH (05:47)
[2020-11-23 07:00] VITALS: BP 160/99
[2020-11-23 07:24] LABS: BASO # 0.1 x10^3/uL (0.0-0.2); BASO % 1 % (0-3); EOS # 0.3 x10^3/uL (0.0-0.7); EOS % 3 % (0-3); HEMATOCRIT 22.2 % (39.0-53.0); HEMOGLOBIN 7.2 g/dL (13.0-17.5); LYMPH # 2.6 x10^3/uL (1.0-4.8); LYMPH % 30 % (24-48); MEAN CORPUSCULAR HEMOGLOBIN 27 pg (25-35); MEAN CORPUSCULAR HGB CONC 32 g/dL (31-37); MEAN CORPUSCULAR VOLUME 84 fL (79-100); MONO # 0.6 x10^3/uL (0.0-1.1); MONO % 7 % (0-9); NEUT # 5.1 x10^3/uL (1.8-7.7); NEUT % 59 % (31-73); PLATELET COUNT 509 x10^3/uL (140-400); RED BLOOD COUNT 2.65 x10^6/uL (4.30-5.70); RED CELL DISTRIBUTION WIDTH 17.2 % (11.5-14.5); WHITE BLOOD COUNT 8.6 x10^3/uL (4.0-11.0)
[2020-11-23 07:41] LABS: CALCIUM 8.4 mg/dL (8.5-10.1); CREATININE 0.8 mg/dL (0.7-1.3); GFR 117.8; POTASSIUM 3.7 mmol/L (3.5-5.1)
[2020-11-23] MEDS ORDERED: POTASSIUM CHLORIDE 20 MEQ TABLET.ER. PO SCH (08:00)
--- NOTE | 2020-11-23 08:40 | PDOC ---
PROGRESS NOTES Date of Service: DATE: 11/23/20 TIME: 08:40 Chief Complaint Chief Complaint impression Altered mental status, acute encephalopathy Seizure, disorder Acute respiratory failure History of schizophrenia. History of alcoholism. sepsis and bacteremia History of Present Illness History of Present Illness 11/23 d/w rn Sepsis. Enterococcal bacteremia, 1 out of 4 bottles present on admission, 11/13/2020. 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 Urine cultures contamination Encephalopathy ,Seizures Continue micafungin pending susceptibilities for Lyndsay albicans on blood cultures Cont Unasyn,iv better , balderas, NEEDED replaced due to wounds, unable to use commode rehab will DC back to [facility] soon, try OOB, then likely SNU or LTC D/W RN Cont Unasyn, was on Zosyn Probiotics Monitor labs/temp Balderas changed per nursing staff Wound VAC as directed. id following 11/22 Sepsis. Enterococcal bacteremia, 1 out of 4 bottles present on admission, 11/13/2020. 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 Urine cultures contamination Encephalopathy ,Seizures Continue micafungin pending susceptibilities for Lyndsay albicans on blood cultures Cont Unasyn,iv better , balderas, NEEDED replaced due to wounds, unable to use commode rehab will DC back to [facility] soon, try OOB, then likely SNU to LTC D/W RN Cont Unasyn, was on Zosyn Probiotics Monitor labs/temp Balderas changed per nursing staff Wound VAC as directed. 11/21 Sepsis. Enterococcal bacteremia, 1 out of 4 bottles present on admission, 11/13/2020. 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 Urine cultures contamination Encephalopathy ,Seizures Continue micafungin pending susceptibilities for Lyndsay albicans on blood cultures Cont Unasyn,iv better , balderas, NEEDED replaced due to wounds, unable to use commode rehab will DC back to [facility] soon, try OOB, then likely SNU to LTC D/W RN Cont Unasyn, was on Zosyn Probiotics Monitor labs/temp Balderas changed per nursing staff Wound VAC as directed. 11/20 Sepsis. Enterococcal bacteremia, 1 out of 4 bottles present on admission, 11/13/2020. 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 Urine cultures contamination Encephalopathy ,Seizures Continue micafungin pending susceptibilities for Lyndsay albicans on blood cultures Cont Unasyn,iv better , balderas, NEEDED replaced due to wounds, unable to use commode start rehab will DC back to [facility] soon, try OOB, then likely SNU to LTC D/W RN 11/19 better and better, DC balderas, NEEDED replaced today due to wounds, unable to use commode may get out of ICU cont current start rehab will DC back to [facility] soon, try OOB, then likely SNU to LTC 11/18, better and better, will DC the balderas may get out of ICU cont current start rehab will DC back to [facility] soon, try OOB, then likely SNU to LTC 11/17, extubated, now alert, doign well, his oldest sister was in room later and I discussed improvement and plan following bacteremia, better, he is alert, lethargic, could still be post-ictal from long repeated seizure activity 11/16 family in room, pt made DNR, will try to extubate soon, weaning vent OK he may have ongoing seizures per Neuro, 11/15/2020 Patient seen and examined Chart reviewed, spoke with nursing Currently sedated and vent weaning AC/500/14/30% on 5.0 PEEP 11/14/2020 Patient seen and examined Patient on ventilation and unconscious Stopped versaid, currently vent weaning Witnessed tremors of arms, possible seizure activity. Informed nursing and discussed starting ativan Current ventilation settings: A/C/16/500ml/40% with 5 PEEP HPI 11/13/2020 History obtained from ED physician Patient is a 64-year-old male with past medical history of alcohol dependence, anxiety, schizophrenia, hypertension who resides at [facility] who presents to the ED due to concern for altered mental status. According to the alf patient was unresponsive and was altered from his baseline. In the ED patient required to be intubated due to possible seizure and for airway protection. No reported prior illness, changes or injury according to alf report. Vitals Vitals Vital Signs Date Time Temp Pulse Resp B/P (MAP) Pulse Ox O2 Delivery O2 Flow Rate FiO2 11/23/20 07:00 97.3 91 16 160/99 (119) 100 Room Air 97.3 Physical Exam Physical Exam GENERAL: Propped up in bed, awake, appears comfortable HEENT: Normocephalic, atraumatic. Oral cavity clear NECK: Supple. LUNGS: Clear. No accessory muscle use HEART: S1, S2, without murmurs. ABDOMEN: Obese, soft and nontender. + BS : Balderas EXTREMITIES: Trace pedal edema. No cyanosis. Right hand swollen (IV infiltrated) DERM: Warm and dry. No generalized rash. Sacral wound vac in place -not taken down NEUROLOGIC: Awake, answered one question, one word response, follows commands PIV General: Alert, Cooperative, No acute distress, Other (CONFUSED TO DETAILS ) Heart: Regular rate, Normal S1 Lungs: Clear Abdomen: Normal bowel sounds, Soft Extremities: No clubbing, No cyanosis, Other (ichthyosis) Skin: No breakdown Labs LABS Laboratory Tests Test 11/23/20 05:50 White Blood Count 8.6 x10^3/uL (4.0-11.0) Red Blood Count 2.65 x10^6/uL (4.30-5.70) Hemoglobin 7.2 g/dL (13.0-17.5) Hematocrit 22.2 % (39.0-53.0) Mean Corpuscular Volume 84 fL (79-100) Mean Corpuscular Hemoglobin 27 pg (25-35) Mean Corpuscular Hemoglobin Concent 32 g/dL (31-37) Red Cell Distribution Width 17.2 % (11.5-14.5) Platelet Count 509 x10^3/uL (140-400) Neutrophils (%) (Auto) 59 % (31-73) Lymphocytes (%) (Auto) 30 % (24-48) Monocytes (%) (Auto) 7 % (0-9) Eosinophils (%) (Auto) 3 % (0-3) Basophils (%) (Auto) 1 % (0-3) Neutrophils # (Auto) 5.1 x10^3/uL (1.8-7.7) Lymphocytes # (Auto) 2.6 x10^3/uL (1.0-4.8) Monocytes # (Auto) 0.6 x10^3/uL (0.0-1.1) Eosinophils # (Auto) 0.3 x10^3/uL (0.0-0.7) Basophils # (Auto) 0.1 x10^3/uL (0.0-0.2) Sodium Level 145 mmol/L (136-145) Potassium Level 3.7 mmol/L (3.5-5.1) Chloride Level 108 mmol/L (98-107) Carbon Dioxide Level 31 mmol/L (21-32) Anion Gap 6 (6-14) Blood Urea Nitrogen 17 mg/dL (8-26) Creatinine 0.8 mg/dL (0.7-1.3) Estimated GFR (Cockcroft-Gault) 117.8 Glucose Level 88 mg/dL (70-99) Calcium Level 8.4 mg/dL (8.5-10.1) Assessment and Plan Assessmemt and Plan Problems Medical Problems: (1) Acute respiratory failure Status: Acute (2) Urinary tract infection Status: Acute Comment Review of Relevant I have reviewed the following items any (where applicable) has been applied. Labs Laboratory Tests Test 11/23/20 05:50 White Blood Count 8.6 x10^3/uL (4.0-11.0) Red Blood Count 2.65 x10^6/uL (4.30-5.70) Hemoglobin 7.2 g/dL (13.0-17.5) Hematocrit 22.2 % (39.0-53.0) Mean Corpuscular Volume 84 fL (79-100) Mean Corpuscular Hemoglobin 27 pg (25-35) Mean Corpuscular Hemoglobin Concent 32 g/dL (31-37) Red Cell Distribution Width 17.2 % (11.5-14.5) Platelet Count 509 x10^3/uL (140-400) Neutrophils (%) (Auto) 59 % (31-73) Lymphocytes (%) (Auto) 30 % (24-48) Monocytes (%) (Auto) 7 % (0-9) Eosinophils (%) (Auto) 3 % (0-3) Basophils (%) (Auto) 1 % (0-3) Neutrophils # (Auto) 5.1 x10^3/uL (1.8-7.7) Lymphocytes # (Auto) 2.6 x10^3/uL (1.0-4.8) Monocytes # (Auto) 0.6 x10^3/uL (0.0-1.1) Eosinophils # (Auto) 0.3 x10^3/uL (0.0-0.7) Basophils # (Auto) 0.1 x10^3/uL (0.0-0.2) Sodium Level 145 mmol/L (136-145) Potassium Level 3.7 mmol/L (3.5-5.1) Chloride Level 108 mmol/L (98-107) Carbon Dioxide Level 31 mmol/L (21-32) Anion Gap 6 (6-14) Blood Urea Nitrogen 17 mg/dL (8-26) Creatinine 0.8 mg/dL (0.7-1.3) Estimated GFR (Cockcroft-Gault) 117.8 Glucose Level 88 mg/dL (70-99) Calcium Level 8.4 mg/dL (8.5-10.1) Laboratory Tests Test 11/23/20 05:50 White Blood Count 8.6 x10^3/uL (4.0-11.0) Red Blood Count 2.65 x10^6/uL (4.30-5.70) Hemoglobin 7.2 g/dL (13.0-17.5) Hematocrit 22.2 % (39.0-53.0) Mean Corpuscular Volume 84 fL (79-100) Mean Corpuscular Hemoglobin 27 pg (25-35) Mean Corpuscular Hemoglobin Concent 32 g/dL (31-37) Red Cell Distribution Width 17.2 % (11.5-14.5) Platelet Count 509 x10^3/uL (140-400) Neutrophils (%) (Auto) 59 % (31-73) Lymphocytes (%) (Auto) 30 % (24-48) Monocytes (%) (Auto) 7 % (0-9) Eosinophils (%) (Auto) 3 % (0-3) Basophils (%) (Auto) 1 % (0-3) Neutrophils # (Auto) 5.1 x10^3/uL (1.8-7.7) Lymphocytes # (Auto) 2.6 x10^3/uL (1.0-4.8) Monocytes # (Auto) 0.6 x10^3/uL (0.0-1.1) Eosinophils # (Auto) 0.3 x10^3/uL (0.0-0.7) Basophils # (Auto) 0.1 x10^3/uL (0.0-0.2) Sodium Level 145 mmol/L (136-145) Potassium Level 3.7 mmol/L (3.5-5.1) Chloride Level 108 mmol/L (98-107) Carbon Dioxide Level 31 mmol/L (21-32) Anion Gap 6 (6-14) Blood Urea Nitrogen 17 mg/dL (8-26) Creatinine 0.8 mg/dL (0.7-1.3) Estimated GFR (Cockcroft-Gault) 117.8 Glucose Level 88 mg/dL (70-99) Calcium Level 8.4 mg/dL (8.5-10.1) Microbiology 11/16/20 Blood Culture - Final, Complete NO GROWTH AFTER 5 DAYS 11/14/20 Gram Stain - Final, Complete 11/14/20 Aerobic and Anaerobic Culture - Final, Complete 11/14/20 Antimicrobic Susceptibility - Final, Complete 11/13/20 Urine Culture - Final, Complete Medications Current Medications Sodium Chloride 50 ml @ 50 mls/hr 1X ONCE IV ; Start 11/13/20 at 12:15; Stop 11/13/20 at 13:14; Status DC Labetalol HCl (Normodyne Iv Push) 10 mg PRN Q10MIN PRN IVP HYPERTENSION; Start 11/13/20 at 12:15 Nicardipine HCl 50 mg/Sodium Chloride 250 ml @ 25 mls/hr CONT PRN PRN IV HYPERTENSION; Start 11/13/20 at 12:15; Stop 11/18/20 at 20:54; Status DC Lorazepam (Ativan Inj) 2 mg 1X ONCE IVP Last administered on 11/13/20at 12:07; Start 11/13/20 at 12:15; Stop 11/13/20 at 12:16; Status DC Lorazepam (Ativan Inj) 2 mg STK-MED ONCE .ROUTE ; Start 11/13/20 at 12:05; Stop 11/13/20 at 12:06; Status DC Propofol 100 ml @ As Directed STK-MED ONCE IV ; Start 11/13/20 at 12:26; Stop 11/13/20 at 12:27; Status DC Piperacillin Sod/ Tazobactam Sod 3.375 gm/Sodium Chloride 50 ml @ 100 mls/hr 1X ONCE IV Last administered on 11/13/20at 13:12; Start 11/13/20 at 12:30; Stop 11/13/20 at 12:59; Status DC Vancomycin HCl 1.5 gm/Sodium Chloride 500 ml @ 250 mls/hr 1X ONCE IV Last administered on 11/13/20at 15:46; Start 11/13/20 at 13:00; Stop 11/13/20 at 14:59; Status DC Etomidate (Amidate) 20 mg 1X ONCE IV Last administered on 11/13/20at 12:21; Start 11/13/20 at 12:30; Stop 11/13/20 at 12:31; Status DC Succinylcholine Chloride (Anectine) 100 mg 1X ONCE IV Last administered on 11/13/20at 12:21; Start 11/13/20 at 12:30; Stop 11/13/20 at 12:31; Status DC Ketorolac Tromethamine (Toradol 15mg Vial) 15 mg 1X ONCE IVP Last administered on 11/13/20at 13:11; Start 11/13/20 at 12:30; Stop 11/13/20 at 12:44; Status DC Propofol 100 ml @ 2.55 mls/hr CONT PRN IV PER PROTOCOL Last administered on 11/13/20at 12:35; Start 11/13/20 at 12:30; Stop 11/14/20 at 11:24; Status DC Iohexol (Omnipaque 300 Mg/ml) 75 ml 1X ONCE IV Last administered on 11/13/20at 13:45; Start 11/13/20 at 13:45; Stop 11/13/20 at 13:46; Status DC Norepinephrine Bitartrate 8 mg/ Dextrose 258 ml @ 16.448 mls/ hr 1X ONCE IV Last administered on 11/13/20at 13:48; Start 11/13/20 at 13:45; Stop 11/14/20 at 05:26; Status DC Midazolam HCl 50 mg/Sodium Chloride 50 ml @ 0 mls/hr 1X ONCE IV Last administered on 11/13/20at 13:49; Start 11/13/20 at 13:45; Stop 11/13/20 at 13:46; Status DC Sennosides (Senna) 17.2 mg PRN BID PRN PO CONSTIPATION, 2ND CHOICE; Start 11/13/20 at 13:45 Docusate Sodium (Colace) 100 mg PRN DAILY PRN PO HARD STOOLS; Start 11/13/20 at 13:45 Ondansetron HCl (Zofran) 4 mg PRN Q6HRS PRN IVP NAUSEA/VOMITING; Start 11/13/20 at 13:45 Dextrose (Dextrose 50%-Water Syringe) 12.5 gm PRN Q15MIN PRN IV SEE COMMENTS; Start 11/13/20 at 13:45 Sodium Chloride 1,000 ml @ 100 mls/hr Q10H IV Last administered on 11/17/20at 04:19; Start 11/13/20 at 13:45; Stop 11/17/20 at 11:23; Status DC Acetaminophen (Tylenol) 650 mg PRN Q4HRS PRN PO TEMP OVER 100.4F OR MILD PAIN; Start 11/13/20 at 13:45; Stop 11/14/20 at 12:04; Status DC Enoxaparin Sodium (Lovenox 40mg Syringe) 40 mg Q24H SQ Last administered on 11/22/20at 15:05; Start 11/13/20 at 14:00 Pantoprazole Sodium (PROTONIX VIAL for IV PUSH) 40 mg DAILYAC IVP Last administered on 11/21/20at 05:49; Start 11/14/20 at 07:30; Stop 11/21/20 at 10:40; Status DC Sodium Chloride 1,000 ml @ 1,000 mls/hr 1X ONCE IV Last administered on 11/13/20at 12:30; Start 11/13/20 at 14:00; Stop 11/13/20 at 14:59; Status DC Sodium Chloride 1,000 ml @ 1,000 mls/hr 1X ONCE IV Last administered on 11/13/20at 14:00; Start 11/13/20 at 14:00; Stop 11/13/20 at 14:59; Status DC Ondansetron HCl (Zofran) 4 mg PRN Q8HRS PRN IV NAUSEA/VOMITING; Start 11/13/20 at 15:15; Stop 11/14/20 at 08:06; Status DC Morphine Sulfate (Morphine Sulfate) 4 mg PRN Q2HR PRN IV PAIN; Start 11/13/20 at 15:15; Stop 11/14/20 at 15:14; Status DC Metronidazole 100 ml @ 100 mls/hr Q12HR IV Last administered on 11/15/20at 07:22; Start 11/13/20 at 19:00; Stop 11/15/20 at 11:33; Status DC Cefepime HCl (Maxipime) 2 gm Q24H IVP Last administered on 11/14/20at 16:34; St art 11/13/20 at 17:00; Stop 11/15/20 at 11:33; Status DC Midazolam HCl 100 ml @ 1 mls/hr CONT PRN IV SEE I/O RECORD; Start 11/13/20 at 19:30; Stop 11/17/20 at 10:02; Status DC Fentanyl Citrate 30 ml @ 0 mls/hr CONT PRN IV SEE PROTOCOL; Start 11/13/20 at 19:30; Stop 11/17/20 at 10:02; Status DC Daptomycin 480 mg/ Sodium Chloride 50 ml @ 100 mls/hr Q24H IV Last administered on 11/17/20at 09:44; Start 11/14/20 at 10:00; Stop 11/17/20 at 12:40; Status DC Propofol 100 ml @ 2.322 mls/ hr CONT PRN IV PER PROTOCOL Last administered on 11/17/20at 04:19; Start 11/14/20 at 11:30; Stop 11/17/20 at 10:03; Status DC Acetaminophen (Tylenol) 650 mg PRN Q4HRS PRN PO TEMP OVER 100.4F OR MILD PAIN; Start 11/14/20 at 12:00 Haloperidol (Haldol) 4 mg BID PO Last administered on 11/17/20at 10:14; Start 11/14/20 at 12:30; Stop 11/17/20 at 21:39; Status DC Polyethylene Glycol (miraLAX PACKET) 17 gm PRN DAILY PRN PO CONSTIPATION, 1ST CHOICE; Start 11/14/20 at 12:00 Benztropine Mesylate (Cogentin) 0.5 mg BID PO Last administered on 11/22/20 21:17; Start 11/14/20 at 12:30 Hydrochlorothiazide (Microzide) 12.5 mg DAILY PO Last administered on 11/22/20 09:28; Start 11/14/20 at 12:30 Quetiapine Fumarate (SEROquel) 400 mg QHS PO Last administered on 11/22/20 21:16; Start 11/14/20 at 21:00 Valproic Acid (Depakene) 500 mg BID PO Last administered on 11/15/20 20:28; Start 11/14/20 at 12:30; Stop 11/16/20 at 09:47; Status DC Levetiracetam 500 mg/Dextrose 105 ml @ 420 mls/hr Q12HR IV Last administered on 11/18/20 08:58; Start 11/14/20 at 12:45; Stop 11/18/20 at 13:40; Status DC Lorazepam (Ativan Inj) 2 mg PRN Q4HRS PRN IVP ANXIETY / AGITATION Last admi nistered on 11/16/20 09:57; Start 11/14/20 at 13:15 Micafungin Sodium 100 mg/Dextrose 100 ml @ 100 mls/hr Q24H IV Last admini stered on 11/22/20 12:30; Start 11/15/20 at 12:00 Piperacillin Sod/ Tazobactam Sod 3.375 gm/Sodium Chloride 50 ml @ 100 mls/hr Q6HRS IV Last administered on 11/18/20 05:30; Start 11/15/20 at 12:00; Stop 11/18/20 at 08:17; Status DC Valproic Acid (Depakene) 500 mg BID PEG Last administered on 11/17/20 08:52; Start 11/16/20 at 10:00; Stop 11/18/20 at 20:55; Status DC Potassium Bicarbonate (Potassium Effervescent Tablet) 40 meq 1X ONCE PO Last administered on 11/16/20 10:35; Start 11/16/20 at 10:00; Stop 11/16/20 at 10:01; Status DC Scopolamine (Transderm-Scop) 1 patch Q3DAYS TD Last administered on 11/22/20 09:29; Start 11/16/20 at 11:00 Amino Acids/ Glycerin/ Electrolytes 1,000 ml @ 80 mls/hr [id number] IV Last administered on 11/22/20 18:19; Start 11/17/20 at 11:30 Fentanyl Citrate (Fentanyl 2ml Vial) 25 mcg PRN Q4HRS PRN IVP MODERATE TO SEVERE PAIN Last administered on 11/17/20 18:44; Start 11/17/20 at 18:45 Haloperidol Lactate (Haldol Inj) 2 mg DAILY08 IVP Last administered on 11/22/20 09:29; Start 11/18/20 at 08:00 Ampicillin Sodium/ Sulbactam Sodium 3 gm/Sodium Chloride 100 ml @ 200 mls/hr Q6HRS IV Last administered on 11/23/20 05:48; Start 11/18/20 at 12:00 Levetiracetam (Keppra) 500 mg BID PO Last administered on 11/22/20 21:16; Start 11/18/20 at 21:00 Multivitamins (Thera M Plus) 1 tab DAILY PO Last administered on 11/22/20 09:28; Start 11/19/20 at 09:00 Ascorbic Acid (Vitamin C) 500 mg DAILY PO Last administered on 11/22/20 09:28; Start 11/19/20 at 09:00 Valproic Acid (Depakene) 500 mg BID PO Last administered on 11/22/20 21:16; Start 11/18/20 at 21:00 Lactobacillus Rhamnosus (Culturelle) 1 cap BID PO Last administered on 11/22/20 21:17; Start 11/19/20 at 21:00 Potassium Chloride (Klor-Con) 40 meq 1X ONCE PO Last administered on 11/20/20 17:37; Start 11/20/20 at 14:15; Stop 11/20/20 at 14:18; Status DC Potassium Chloride (Klor-Con) 20 meq DAILYWBKFT PO Last administered on 11/22/20 09:28; Start 11/21/20 at 08:00 Pantoprazole Sodium (Protonix) 40 mg DAILYAC PO Last administered on 11/23/20 05:47; Start 11/22/20 at 07:30 Potassium Chloride (Klor-Con) 40 meq 1X ONCE PO Last administered on 11/22/20at 15:05; Start 11/22/20 at 15:00; Stop 11/22/20 at 15:01; Status DC Potassium Chloride (Klor-Con) 20 meq DAILYWBKFT PO ; Start 11/23/20 at 08:00 Active Scripts Active Tylenol (Acetaminophen) 325 Mg Tablet 650 Mg PO PRN Q4HRS PRN 30 Days Reported Seroquel (Quetiapine Fumarate) 400 Mg Tablet 2 Tab PO QHS Valproic Acid (Valproate Sodium) 500 Mg/10 Ml Solution 500 Mg PO BID Lisinopril 20 Mg Tablet 1 Tab PO DAILY Hydrochlorothiazide Tablet (Hydrochlorothiazide) 12.5 Mg Tablet 12.5 Mg PO DAILY Haloperidol 2 Mg Tablet 2 Tab PO BID Benztropine Mesylate 0.5 Mg Tablet 1 Tab PO BID Miralax (Polyethylene Glycol 3350) 17 Gm Powd.pack 1 Packet PO PRN DAILY PRN 2 Days dissolve in water Vitals/I & O Vital Sign - Last 24 Hours 11/22/20 11/22/20 11/22/20 11/22/20 11:00 15:00 19:00 20:00 Temp 98.4 98.0 98.5 98.4 98.0 98.5 Pulse 90 93 114 Resp 16 16 16 B/P (MAP) 145/77 (99) 146/70 (95) 182/99 (126) Pulse Ox 97 96 94 O2 Delivery Room Air Room Air Room Air Room Air 11/22/20 11/23/20 11/23/20 23:00 03:00 07:00 Temp 99.6 97.8 97.3 99.6 97.8 97.3 Pulse 111 89 91 Resp 16 16 16 B/P (MAP) 146/87 (106) 161/94 (116) 160/99 (119) Pulse Ox 95 96 100 O2 Delivery Room Air Room Air Room Air Intake and Output 11/22/20 11/22/20 11/23/20 15:00 23:00 07:00 Intake Total 360 ml Output Total 1700 ml Balance 360 ml -1700 ml Nutrition Consultation Dietary Evaluation: Recommendations by RD: Dietary education by RD, Increase Calorie Intake, Protein supplementation, PPN/TPN Comments: Cardiac: dysphagia I/thin liquids Miguelangel BID Ensure q day REC d/c PPN when po intake is consistantly >50% meals. Expected Outcomes/Goals: new goal:to meet > 75% est nutr needs Malnutrition Findings: Body Fat Depletion (Non Severe: Mild Depletion Weight Status: Appropriate Justicifation of Admission Dx: Justifications for Admission: Justification of Admission Dx: N/A ITZEL MORALES MD November 23, 2020 08:40
--- NOTE | 2020-11-23 09:12 | PDOC ---
PROGRESS NOTES Date of Service DATE: 11/23/20 TIME: 09:11 Assessment Problems Medical Problems: (1) Acute respiratory failure Status: Acute (2) Urinary tract infection Status: Acute Drug-induced parkinsonism EEG, 11/15, shows intermittent bilateral periodic lateralizing epileptiform discharges. I suspect that he had a respiratory event and was found hypoxic causing anoxic encephalopathy. No clinical seizures since 11/16 Possible stroke symptoms earlier, nonfocal exam now with exam of course limited by his sedation. History of alcoholism, schizophrenia, other psychiatric disease Fever, leukocytosis, sepsis, gram-positive cocci bacteremia, urinary tract infection with hydronephrosis, respiratory failure, decubitus ulcer with wound VAC Extubated 11/16, is DO NOT RESUSCITATE Plan Depakene and levetiracetam Hold on brain MRI Objective Vital Signs Date Time Temp Pulse Resp B/P (MAP) Pulse Ox O2 Delivery O2 Flow Rate FiO2 11/23/20 07:00 97.3 91 16 160/99 (119) 100 Room Air 97.3 Intake and Output 11/23/20 07:00 Intake Total 360 ml Output Total 2700 ml Balance -2340 ml Intake Oral 360 ml Output Urine Total 2700 ml PHYSICAL EXAM Alert, tells me his name and location, follows commands PERRL. EOMI. CN: no focal findings. Muscle tone: normal. Muscle strength: 2-3/5 DTR: 1+ Plantar reflex: Silent Gait: not examined in bed. Sensory exam: Not cooperative Cerebellar: Not cooperative Coarse rest tremor Review of Relevant I have reviewed the following items any (where applicable) has been applied. Labs Laboratory Tests Test 11/23/20 05:50 White Blood Count 8.6 x10^3/uL (4.0-11.0) Red Blood Count 2.65 x10^6/uL (4.30-5.70) Hemoglobin 7.2 g/dL (13.0-17.5) Hematocrit 22.2 % (39.0-53.0) Mean Corpuscular Volume 84 fL (79-100) Mean Corpuscular Hemoglobin 27 pg (25-35) Mean Corpuscular Hemoglobin Concent 32 g/dL (31-37) Red Cell Distribution Width 17.2 % (11.5-14.5) Platelet Count 509 x10^3/uL (140-400) Neutrophils (%) (Auto) 59 % (31-73) Lymphocytes (%) (Auto) 30 % (24-48) Monocytes (%) (Auto) 7 % (0-9) Eosinophils (%) (Auto) 3 % (0-3) Basophils (%) (Auto) 1 % (0-3) Neutrophils # (Auto) 5.1 x10^3/uL (1.8-7.7) Lymphocytes # (Auto) 2.6 x10^3/uL (1.0-4.8) Monocytes # (Auto) 0.6 x10^3/uL (0.0-1.1) Eosinophils # (Auto) 0.3 x10^3/uL (0.0-0.7) Basophils # (Auto) 0.1 x10^3/uL (0.0-0.2) Sodium Level 145 mmol/L (136-145) Potassium Level 3.7 mmol/L (3.5-5.1) Chloride Level 108 mmol/L (98-107) Carbon Dioxide Level 31 mmol/L (21-32) Anion Gap 6 (6-14) Blood Urea Nitrogen 17 mg/dL (8-26) Creatinine 0.8 mg/dL (0.7-1.3) Estimated GFR (Cockcroft-Gault) 117.8 Glucose Level 88 mg/dL (70-99) Calcium Level 8.4 mg/dL (8.5-10.1) Laboratory Tests Test 11/23/20 05:50 White Blood Count 8.6 x10^3/uL (4.0-11.0) Red Blood Count 2.65 x10^6/uL (4.30-5.70) Hemoglobin 7.2 g/dL (13.0-17.5) Hematocrit 22.2 % (39.0-53.0) Mean Corpuscular Volume 84 fL (79-100) Mean Corpuscular Hemoglobin 27 pg (25-35) Mean Corpuscular Hemoglobin Concent 32 g/dL (31-37) Red Cell Distribution Width 17.2 % (11.5-14.5) Platelet Count 509 x10^3/uL (140-400) Neutrophils (%) (Auto) 59 % (31-73) Lymphocytes (%) (Auto) 30 % (24-48) Monocytes (%) (Auto) 7 % (0-9) Eosinophils (%) (Auto) 3 % (0-3) Basophils (%) (Auto) 1 % (0-3) Neutrophils # (Auto) 5.1 x10^3/uL (1.8-7.7) Lymphocytes # (Auto) 2.6 x10^3/uL (1.0-4.8) Monocytes # (Auto) 0.6 x10^3/uL (0.0-1.1) Eosinophils # (Auto) 0.3 x10^3/uL (0.0-0.7) Basophils # (Auto) 0.1 x10^3/uL (0.0-0.2) Sodium Level 145 mmol/L (136-145) Potassium Level 3.7 mmol/L (3.5-5.1) Chloride Level 108 mmol/L (98-107) Carbon Dioxide Level 31 mmol/L (21-32) Anion Gap 6 (6-14) Blood Urea Nitrogen 17 mg/dL (8-26) Creatinine 0.8 mg/dL (0.7-1.3) Estimated GFR (Cockcroft-Gault) 117.8 Glucose Level 88 mg/dL (70-99) Calcium Level 8.4 mg/dL (8.5-10.1) Microbiology 11/16/20 Blood Culture - Final, Complete NO GROWTH AFTER 5 DAYS 11/14/20 Gram Stain - Final, Complete 11/14/20 Aerobic and Anaerobic Culture - Final, Complete 11/14/20 Antimicrobic Susceptibility - Final, Complete 11/13/20 Urine Culture - Final, Complete Medications Current Medications Sodium Chloride 50 ml @ 50 mls/hr 1X ONCE IV ; Start 11/13/20 at 12:15; Stop 11/13/20 at 13:14; Status DC Labetalol HCl (Normodyne Iv Push) 10 mg PRN Q10MIN PRN IVP HYPERTENSION; Start 11/13/20 at 12:15 Nicardipine HCl 50 mg/Sodium Chloride 250 ml @ 25 mls/hr CONT PRN PRN IV HYPERTENSION; Start 11/13/20 at 12:15; Stop 11/18/20 at 20:54; Status DC Lorazepam (Ativan Inj) 2 mg 1X ONCE IVP Last administered on 11/13/20at 12:07; Start 11/13/20 at 12:15; Stop 11/13/20 at 12:16; Status DC Lorazepam (Ativan Inj) 2 mg STK-MED ONCE .ROUTE ; Start 11/13/20 at 12:05; Stop 11/13/20 at 12:06; Status DC Propofol 100 ml @ As Directed STK-MED ONCE IV ; Start 11/13/20 at 12:26; Stop 11/13/20 at 12:27; Status DC Piperacillin Sod/ Tazobactam Sod 3.375 gm/Sodium Chloride 50 ml @ 100 mls/hr 1X ONCE IV Last administered on 11/13/20at 13:12; Start 11/13/20 at 12:30; Stop 11/13/20 at 12:59; Status DC Vancomycin HCl 1.5 gm/Sodium Chloride 500 ml @ 250 mls/hr 1X ONCE IV Last adm inistered on 11/13/20at 15:46; Start 11/13/20 at 13:00; Stop 11/13/20 at 14:59; Status DC Etomidate (Amidate) 20 mg 1X ONCE IV Last administered on 11/13/20at 12:21; Start 11/13/20 at 12:30; Stop 11/13/20 at 12:31; Status DC Succinylcholine Chloride (Anectine) 100 mg 1X ONCE IV Last administered on 11/13/20at 12:21; Start 11/13/20 at 12:30; Stop 11/13/20 at 12:31; Status DC Ketorolac Tromethamine (Toradol 15mg Vial) 15 mg 1X ONCE IVP Last administered on 11/13/20at 13:11; Start 11/13/20 at 12:30; Stop 11/13/20 at 12:44; Status DC Propofol 100 ml @ 2.55 mls/hr CONT PRN IV PER PROTOCOL Last administered on 11/13/20at 12:35; Start 11/13/20 at 12:30; Stop 11/14/20 at 11:24; Status DC Iohexol (Omnipaque 300 Mg/ml) 75 ml 1X ONCE IV Last administered on 11/13/20at 13:45; Start 11/13/20 at 13:45; Stop 11/13/20 at 13:46; Status DC Norepinephrine Bitartrate 8 mg/ Dextrose 258 ml @ 16.448 mls/ hr 1X ONCE IV Last administered on 11/13/20at 13:48; Start 11/13/20 at 13:45; Stop 11/14/20 at 05:26; Status DC Midazolam HCl 50 mg/Sodium Chloride 50 ml @ 0 mls/hr 1X ONCE IV Last administered on 11/13/20at 13:49; Start 11/13/20 at 13:45; Stop 11/13/20 at 13:46; Status DC Sennosides (Senna) 17.2 mg PRN BID PRN PO CONSTIPATION, 2ND CHOICE; Start 11/13/20 at 13:45 Docusate Sodium (Colace) 100 mg PRN DAILY PRN PO HARD STOOLS; Start 11/13/20 at 13:45 Ondansetron HCl (Zofran) 4 mg PRN Q6HRS PRN IVP NAUSEA/VOMITING; Start 11/13/20 at 13:45 Dextrose (Dextrose 50%-Water Syringe) 12.5 gm PRN Q15MIN PRN IV SEE COMMENTS; Start 11/13/20 at 13:45 Sodium Chloride 1,000 ml @ 100 mls/hr Q10H IV Last administered on 11/17/20at 04:19; Start 11/13/20 at 13:45; Stop 11/17/20 at 11:23; Status DC Acetaminophen (Tylenol) 650 mg PRN Q4HRS PRN PO TEMP OVER 100.4F OR MILD PAIN; Start 11/13/20 at 13:45; Stop 11/14/20 at 12:04; Status DC Enoxaparin Sodium (Lovenox 40mg Syringe) 40 mg Q24H SQ Last administered on 11/22/20at 15:05; Start 11/13/20 at 14:00 Pantoprazole Sodium (PROTONIX VIAL for IV PUSH) 40 mg DAILYAC IVP Last administered on 11/21/20at 05:49; Start 11/14/20 at 07:30; Stop 11/21/20 at 10:40; Status DC Sodium Chloride 1,000 ml @ 1,000 mls/hr 1X ONCE IV Last administered on 11/13/20at 12:30; Start 11/13/20 at 14:00; Stop 11/13/20 at 14:59; Status DC Sodium Chloride 1,000 ml @ 1,000 mls/hr 1X ONCE IV Last administered on 11/13/20at 14:00; Start 11/13/20 at 14:00; Stop 11/13/20 at 14:59; Status DC Ondansetron HCl (Zofran) 4 mg PRN Q8HRS PRN IV NAUSEA/VOMITING; Start 11/13/20 at 15:15; Stop 11/14/20 at 08:06; Status DC Morphine Sulfate (Morphine Sulfate) 4 mg PRN Q2HR PRN IV PAIN; Start 11/13/20 at 15:15; Stop 11/14/20 at 15:14; Status DC Metronidazole 100 ml @ 100 mls/hr Q12HR IV Last administered on 11/15/20at 07:22; Start 11/13/20 at 19:00; Stop 11/15/20 at 11:33; Status DC Cefepime HCl (Maxipime) 2 gm Q24H IVP Last administered on 11/14/20at 16:34; Start 11/13/20 at 17:00; Stop 11/15/20 at 11:33; Status DC Midazolam HCl 100 ml @ 1 mls/hr CONT PRN IV SEE I/O RECORD; Start 11/13/20 at 19:30; Stop 11/17/20 at 10:02; Status DC Fentanyl Citrate 30 ml @ 0 mls/hr CONT PRN IV SEE PROTOCOL; Start 11/13/20 at 19:30; Stop 11/17/20 at 10:02; Status DC Daptomycin 480 mg/ Sodium Chloride 50 ml @ 100 mls/hr Q24H IV Last administered on 11/17/20at 09:44; Start 11/14/20 at 10:00; Stop 11/17/20 at 12:40; Status DC Propofol 100 ml @ 2.322 mls/ hr CONT PRN IV PER PROTOCOL Last administered on 11/17/20at 04:19; Start 11/14/20 at 11:30; Stop 11/17/20 at 10:03; Status DC Acetaminophen (Tylenol) 650 mg PRN Q4HRS PRN PO TEMP OVER 100.4F OR MILD PAIN; Start 11/14/20 at 12:00 Haloperidol (Haldol) 4 mg BID PO Last administered on 11/17/20at 10:14; Start 11/14/20 at 12:30; Stop 11/17/20 at 21:39; Status DC Polyethylene Glycol (miraLAX PACKET) 17 gm PRN DAILY PRN PO CONSTIPATION, 1ST CHOICE; Start 11/14/20 at 12:00 Benztropine Mesylate (Cogentin) 0.5 mg BID PO Last administered on 11/22/20 21:17; Start 11/14/20 at 12:30 Hydrochlorothiazide (Microzide) 12.5 mg DAILY PO Last administered on 11/22/20 09:28; Start 11/14/20 at 12:30 Quetiapine Fumarate (SEROquel) 400 mg QHS PO Last administered on 11/22/20 21:16; Start 11/14/20 at 21:00 Valproic Acid (Depakene) 500 mg BID PO Last administered on 11/15/20 20:28; Start 11/14/20 at 12:30; Stop 11/16/20 at 09:47; Status DC Levetiracetam 500 mg/Dextrose 105 ml @ 420 mls/hr Q12HR IV Last administered on 11/18/20 08:58; Start 11/14/20 at 12:45; Stop 11/18/20 at 13:40; Status DC Lorazepam (Ativan Inj) 2 mg PRN Q4HRS PRN IVP ANXIETY / AGITATION Last administered on 11/16/20at 09:57; Start 11/14/20 at 13:15 Micafungin Sodium 100 mg/Dextrose 100 ml @ 100 mls/hr Q24H IV Last administered on 11/22/20 12:30; Start 11/15/20 at 12:00 Piperacillin Sod/ Tazobactam Sod 3.375 gm/Sodium Chloride 50 ml @ 100 mls/hr Q6HRS IV Last administered on 11/18/20 05:30; Start 11/15/20 at 12:00; Stop 11/18/20 at 08:17; Status DC Valproic Acid (Depakene) 500 mg BID PEG Last administered on 11/17/20 08:52; Start 11/16/20 at 10:00; Stop 11/18/20 at 20:55; Status DC Potassium Bicarbonate (Potassium Effervescent Tablet) 40 meq 1X ONCE PO Last administered on 11/16/20at 10:35; Start 11/16/20 at 10:00; Stop 11/16/20 at 10:01; Status DC Scopolamine (Transderm-Scop) 1 patch Q3DAYS TD Last administered on 11/22/20 09:29; Start 11/16/20 at 11:00 Amino Acids/ Glycerin/ Electrolytes 1,000 ml @ 80 mls/hr [id number] IV Last administered on 11/22/20 18:19; Start 11/17/20 at 11:30 Fentanyl Citrate (Fentanyl 2ml Vial) 25 mcg PRN Q4HRS PRN IVP MODERATE TO SEVERE PAIN Last administered on 11/17/20 18:44; Start 11/17/20 at 18:45 Haloperidol Lactate (Haldol Inj) 2 mg DAILY08 IVP Last administered on 11/22/20 09:29; Start 11/18/20 at 08:00 Ampicillin Sodium/ Sulbactam Sodium 3 gm/Sodium Chloride 100 ml @ 200 mls/hr Q6HRS IV Last administered on 11/23/20 05:48; Start 11/18/20 at 12:00 Levetiracetam (Keppra) 500 mg BID PO Last administered on 11/22/20 21:16; Start 11/18/20 at 21:00 Multivitamins (Thera M Plus) 1 tab DAILY PO Last administered on 11/22/20 09:28; Start 11/19/20 at 09:00 Ascorbic Acid (Vitamin C) 500 mg DAILY PO Last administered on 11/22/20 09:28; Start 11/19/20 at 09:00 Valproic Acid (Depakene) 500 mg BID PO Last administered on 11/22/20 21:16; Start 11/18/20 at 21:00 Lactobacillus Rhamnosus (Culturelle) 1 cap BID PO Last administered on 11/22/20 21:17; Start 11/19/20 at 21:00 Potassium Chloride (Klor-Con) 40 meq 1X ONCE PO Last administered on 11/20/20 17:37; Start 11/20/20 at 14:15; Stop 11/20/20 at 14:18; Status DC Potassium Chloride (Klor-Con) 20 meq DAILYWBKFT PO Last administered on 11/22/20 09:28; Start 11/21/20 at 08:00 Pantoprazole Sodium (Protonix) 40 mg DAILYAC PO Last administered on 11/23/20at 05:47; Start 11/22/20 at 07:30 Potassium Chloride (Klor-Con) 40 meq 1X ONCE PO Last administered on 11/22/20at 15:05; Start 11/22/20 at 15:00; Stop 11/22/20 at 15:01; Status DC Potassium Chloride (Klor-Con) 20 meq DAILYWBKFT PO ; Start 11/23/20 at 08:00 Active Scripts Active Tylenol (Acetaminophen) 325 Mg Tablet 650 Mg PO PRN Q4HRS PRN 30 Days Reported Seroquel (Quetiapine Fumarate) 400 Mg Tablet 2 Tab PO QHS Valproic Acid (Valproate Sodium) 500 Mg/10 Ml Solution 500 Mg PO BID Lisinopril 20 Mg Tablet 1 Tab PO DAILY Hydrochlorothiazide Tablet (Hydrochlorothiazide) 12.5 Mg Tablet 12.5 Mg PO DAILY Haloperidol 2 Mg Tablet 2 Tab PO BID Benztropine Mesylate 0.5 Mg Tablet 1 Tab PO BID Miralax (Polyethylene Glycol 3350) 17 Gm Powd.pack 1 Packet PO PRN DAILY PRN 2 Days dissolve in water Vitals/I & O Vital Sign - Last 24 Hours 11/22/20 11/22/20 11/22/20 11/22/20 11:00 15:00 19:00 20:00 Temp 98.4 98.0 98.5 98.4 98.0 98.5 Pulse 90 93 114 Resp 16 16 16 B/P (MAP) 145/77 (99) 146/70 (95) 182/99 (126) Pulse Ox 97 96 94 O2 Delivery Room Air Room Air Room Air Room Air 11/22/20 11/23/20 11/23/20 23:00 03:00 07:00 Temp 99.6 97.8 97.3 99.6 97.8 97.3 Pulse 111 89 91 Resp 16 16 16 B/P (MAP) 146/87 (106) 161/94 (116) 160/99 (119) Pulse Ox 95 96 100 O2 Delivery Room Air Room Air Room Air Intake and Output 11/22/20 11/22/20 11/23/20 15:00 23:00 07:00 Intake Total 360 ml Output Total 2700 ml Balance 360 ml -2700 ml Justicifation of Admission Dx: Justifications for Admission: Justification of Admission Dx: N/A GÓMEZ ROMERO MD November 23, 2020 09:12
[2020-11-23] MEDS: LACTOBACILLUS RHAMNOSUS GG 1 CAPSULE. PO SCH (09:19)
[2020-11-23] MEDS: HALOPERIDOL LACTATE 5 MG/ML VIAL. IVP SCH (09:19)
[2020-11-23] MEDS: BENZTROPINE MESYLATE 1 MG TABLET. PO SCH (09:19)
[2020-11-23] MEDS: POTASSIUM CHLORIDE 20 MEQ TABLET.ER. PO SCH (09:19)
[2020-11-23] MEDS: hydroCHLOROthiazide 12.5 MG CAPSULE PO SCH (09:19)
[2020-11-23] MEDS: VALPROIC ACID (AS SODIUM SALT) 250 MG/5 ML SOLUTION. PO SCH (09:19)
[2020-11-23] MEDS: MULTIVITAMIN with MINERAL TABLET. PO SCH (09:19)
[2020-11-23] MEDS: ASCORBIC ACID 500 MG TABLET PO SCH (09:20)
[2020-11-23] MEDS: levETIRAcetam 500 MG TABLET PO SCH (09:20)
--- NOTE | 2020-11-23 09:33 | PDOC ---
Infectious Disease Note Subjective Subjective Denies pain or upset stomach. No fevers last 48 hrs Vital Sign Vital Signs Vital Signs Date Time Temp Pulse Resp B/P (MAP) Pulse Ox O2 Delivery O2 Flow Rate FiO2 11/23/20 07:00 97.3 91 16 160/99 (119) 100 Room Air 97.3 Physical Exam PHYSICAL EXAM GENERAL: Propped up in bed, awake, appears comfortable HEENT: Normocephalic, atraumatic. Oral cavity clear NECK: Supple. LUNGS: Clear. No accessory muscle use HEART: S1, S2, without murmurs. ABDOMEN: Obese, soft and nontender. + BS : [place] EXTREMITIES: Trace pedal edema. No cyanosis. Right hand swollen (IV in filtrated) DERM: Warm and dry. No generalized rash. Sacral wound vac in place -not taken down NEUROLOGIC: Alert, tremor BUE PIVs Labs Lab Laboratory Tests Test 11/23/20 05:50 White Blood Count 8.6 x10^3/uL (4.0-11.0) Red Blood Count 2.65 x10^6/uL (4.30-5.70) Hemoglobin 7.2 g/dL (13.0-17.5) Hematocrit 22.2 % (39.0-53.0) Mean Corpuscular Volume 84 fL (79-100) Mean Corpuscular Hemoglobin 27 pg (25-35) Mean Corpuscular Hemoglobin Concent 32 g/dL (31-37) Red Cell Distribution Width 17.2 % (11.5-14.5) Platelet Count 509 x10^3/uL (140-400) Neutrophils (%) (Auto) 59 % (31-73) Lymphocytes (%) (Auto) 30 % (24-48) Monocytes (%) (Auto) 7 % (0-9) Eosinophils (%) (Auto) 3 % (0-3) Basophils (%) (Auto) 1 % (0-3) Neutrophils # (Auto) 5.1 x10^3/uL (1.8-7.7) Lymphocytes # (Auto) 2.6 x10^3/uL (1.0-4.8) Monocytes # (Auto) 0.6 x10^3/uL (0.0-1.1) Eosinophils # (Auto) 0.3 x10^3/uL (0.0-0.7) Basophils # (Auto) 0.1 x10^3/uL (0.0-0.2) Sodium Level 145 mmol/L (136-145) Potassium Level 3.7 mmol/L (3.5-5.1) Chloride Level 108 mmol/L (98-107) Carbon Dioxide Level 31 mmol/L (21-32) Anion Gap 6 (6-14) Blood Urea Nitrogen 17 mg/dL (8-26) Creatinine 0.8 mg/dL (0.7-1.3) Estimated GFR (Cockcroft-Gault) 117.8 Glucose Level 88 mg/dL (70-99) Calcium Level 8.4 mg/dL (8.5-10.1) Micro Objective Assessment Fever. Resolved Leukocytosis - improved Sepsis. Enterococcal bacteremia, 1 out of 4 bottles present on admission, 11/13/2020. repeat BC 11/15 neg Lyndsay albicans fungemia 1 out of 4 bottles present on admission 11/13/2020. repeat BC 11/15 neg Complicated urinary tract infection with hydronephrosis, right greater than left. Urine cultures contamination Encephalopathy, seizures Acute respiratory failure, status post intubation. Now extubated Chronic nonhealing archana IV sacral decubitus ulcer infection w/ Enterococcus, Bacteroides, Corynebacterium stratum on swab cultures. 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 History of schizophrenia History of Anxiety IV infiltration right hand Plan Plan of Care Continue micafungin November 15, will need at least 2 weeks of therapy for fungemia Lyndsay albicans sensitivities on blood cultures still pending Cont Unasyn, was on Zosyn Probiotics Monitor labs/temp [place] changed per nursing staff Wound care/vera flow vac in place as directed. Offload. Supportive care. Discussed with nursing May need LTAC D/c unasyn Enterococcus could be skin contamination given 1 cult but should be treated and change to Augmentin for 3 days Needs Micafungin through 11/28 to complete 14 days for yeast in blood despite only 1 bottle Recommend Optho eval Ok to transfer Attending Co-Sign Attending Co-Sign The patient was seen and interviewed as well as examined at the bedside. The chart was reviewed. The case was discussed. Agree with the plan of care. SIMRAN ESPARZA APRN November 23, 2020 09:33 ANGELA BRIGHT MD November 23, 2020 13:12
[2020-11-23 11:00] VITALS: BP 184/108
[2020-11-23] MEDS ORDERED: hydrALAZINE 20 MG/ML VIAL. IVP PRN (11:15)
[2020-11-23] MEDS: MICAFUNGIN 100 MG in IV DEXTROSE 5% 100ML 100 ML IV SCH (11:22)
[2020-11-23] MEDS: AMINO AC 3%/ELECTROLYTE/GLYCER 1,000 ML IV SCH (11:29)
--- NOTE | 2020-11-23 13:32 | PDOC3 ---
Discharge Summary Date of Admission: Nov 13, 2020 Date of Discharge: November 23, 2020 Follow-Up: 1-2 days Admitting Diagnosis comment: HPI History of Present Illness: HPI: History obtained from ED physician Patient is a 64-year-old male with past medical history of alcohol dependence, anxiety, schizophrenia, hypertension who resides at [facility] who presents to the ED due to concern for altered mental status. According to the retirement patient was unresponsive and was altered from his baseline. In the ED patient required to be intubated due to possible seizure and for airway protection. No reported prior illness, changes or injury according to retirement report. PROGNOSIS FAIR TO GUARDED D/C CONDITION GOOD COMPLICATIONS NONE CONSULTS ID, NEUROLOGY, PULMONARY, WOUND CARE FOR WOUND VAC D/C MEDS SEE MAR D/c unasyn Enterococcus could be skin contamination given 1 cult but should be treated and change to Augmentin for 3 days Needs Micafungin through 11/28 to complete 14 days for yeast in blood despite only 1 bottle Recommend Optho eval Ok to transfer TO snf with wound vac DISCHARGE DX D/C PLANNING 34 MIN Chief Complaint impression Altered mental status, acute encephalopathy Seizure, disorder Acute respiratory failure History of schizophrenia. History of alcoholism. sepsis and bacteremia History of Present Illness History of Present Illness 11/23 d/w rn Sepsis. Enterococcal bacteremia, 1 out of 4 bottles present on admission, 11/13/2020. 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 Urine cultures contamination Encephalopathy ,Seizures Continue micafungin pending susceptibilities for Lyndsay albicans on blood cultures Cont Unasyn,iv better , balderas, NEEDED replaced due to wounds, unable to use commode rehab will DC back to snf care soon, try OOB, then likely SNU or LTC D/W RN Cont Unasyn, was on Zosyn Probiotics Monitor labs/temp Balderas changed per nursing staff Wound VAC as directed. id following D/C TO LTAC 11/22 Sepsis. Enterococcal bacteremia, 1 out of 4 bottles present on admission, 11/13/2020. 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 Urine cultures contamination Encephalopathy ,Seizures Continue micafungin pending susceptibilities for Lyndsay albicans on blood cultures Cont Unasyn,iv better , balderas, NEEDED replaced due to wounds, unable to use commode rehab will DC back to [facility] soon, try OOB, then likely SNU to LTC D/W RN Cont Unasyn, was on Zosyn Probiotics Monitor labs/temp Balderas changed per nursing staff Wound VAC as directed. 11/21 Sepsis. Enterococcal bacteremia, 1 out of 4 bottles present on admission, 11/13/2020. 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 Urine cultures contamination Encephalopathy ,Seizures Continue micafungin pending susceptibilities for Lyndsay albicans on blood cultures Cont Unasyn,iv better , balderas, NEEDED replaced due to wounds, unable to use commode rehab will DC back to snf care soon, try OOB, then likely SNU to LTC D/W RN Cont Unasyn, was on Zosyn Probiotics Monitor labs/temp Balderas changed per nursing staff Wound VAC as directed. 11/20 Sepsis. Enterococcal bacteremia, 1 out of 4 bottles present on admission, 11/13/2020. 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 Urine cultures contamination Encephalopathy ,Seizures Continue micafungin pending susceptibilities for Lyndsay albicans on blood cultures Cont Unasyn,iv better , balderas, NEEDED replaced due to wounds, unable to use commode start rehab will DC back to [facility] soon, try OOB, then likely SNU to LTC D/W RN 11/19 better and better, DC balderas, NEEDED replaced today due to wounds, unable to use commode may get out of ICU cont current start rehab will DC back to snf care soon, try OOB, then likely SNU to LTC 11/18, better and better, will DC the balderas may get out of ICU cont current start rehab will DC back to snf care soon, try OOB, then likely SNU to LTC 11/17, extubated, now alert, doign well, his oldest sister was in room later and I discussed improvement and plan following bacteremia, better, he is alert, lethargic, could still be post-ictal from long repeated seizure activity 11/16 family in room, pt made DNR, will try to extubate soon, weaning vent OK he may have ongoing seizures per Neuro, 11/15/2020 Patient seen and examined Chart reviewed, spoke with nursing Currently sedated and vent weaning AC/500/14/30% on 5.0 PEEP 11/14/2020 Patient seen and examined Patient on ventilation and unconscious Stopped versaid, currently vent weaning Witnessed tremors of arms, possible seizure activity. Informed nursing and discussed starting ativan Current ventilation settings: A/C/16/500ml/40% with 5 PEEP FINAL DIAGNOSIS Problems Medical Problems: (1) Acute respiratory failure Status: Acute (2) Urinary tract infection Status: Acute Brief Hospital Course Mr. Gustafson is a 64 old [sex] who presented with [SEPSIS ] Sepsis. Enterococcal bacteremia, 1 out of 4 bottles present on admission, 11/13/2020. 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 Urine cultures contamination Encephalopathy ,Seizures CONDITION AT DISCHARGE: Improved Discharge Medications Current Medications Sodium Chloride 50 ml @ 50 mls/hr 1X ONCE IV ; Start 11/13/20 at 12:15; Stop 11/13/20 at 13:14; Status DC Labetalol HCl (Normodyne Iv Push) 10 mg PRN Q10MIN PRN IVP HYPERTENSION; Start 11/13/20 at 12:15 Nicardipine HCl 50 mg/Sodium Chloride 250 ml @ 25 mls/hr CONT PRN PRN IV HYPERTENSION; Start 11/13/20 at 12:15; Stop 11/18/20 at 20:54; Status DC Lorazepam (Ativan Inj) 2 mg 1X ONCE IVP Last administered on 11/13/20at 12:07; Start 11/13/20 at 12:15; Stop 11/13/20 at 12:16; Status DC Lorazepam (Ativan Inj) 2 mg STK-MED ONCE .ROUTE ; Start 11/13/20 at 12:05; Stop 11/13/20 at 12:06; Status DC Propofol 100 ml @ As Directed STK-MED ONCE IV ; Start 11/13/20 at 12:26; Stop 11/13/20 at 12:27; Status DC Piperacillin Sod/ Tazobactam Sod 3.375 gm/Sodium Chloride 50 ml @ 100 mls/hr 1X ONCE IV Last administered on 11/13/20at 13:12; Start 11/13/20 at 12:30; Stop 11/13/20 at 12:59; Status DC Vancomycin HCl 1.5 gm/Sodium Chloride 500 ml @ 250 mls/hr 1X ONCE IV Last administered on 11/13/20at 15:46; Start 11/13/20 at 13:00; Stop 11/13/20 at 14:59; Status DC Etomidate (Amidate) 20 mg 1X ONCE IV Last administered on 11/13/20at 12:21; Start 11/13/20 at 12:30; Stop 11/13/20 at 12:31; Status DC Succinylcholine Chloride (Anectine) 100 mg 1X ONCE IV Last administered on 11/13/20at 12:21; Start 11/13/20 at 12:30; Stop 11/13/20 at 12:31; Status DC Ketorolac Tromethamine (Toradol 15mg Vial) 15 mg 1X ONCE IVP Last administered on 11/13/20at 13:11; Start 11/13/20 at 12:30; Stop 11/13/20 at 12:44; Status DC Propofol 100 ml @ 2.55 mls/hr CONT PRN IV PER PROTOCOL Last administered on 11/13/20at 12:35; Start 11/13/20 at 12:30; Stop 11/14/20 at 11:24; Status DC Iohexol (Omnipaque 300 Mg/ml) 75 ml 1X ONCE IV Last administered on 11/13/20at 13:45; Start 11/13/20 at 13:45; Stop 11/13/20 at 13:46; Status DC Norepinephrine Bitartrate 8 mg/ Dextrose 258 ml @ 16.448 mls/ hr 1X ONCE IV Last administered on 11/13/20at 13:48; Start 11/13/20 at 13:45; Stop 11/14/20 at 05:26; Status DC Midazolam HCl 50 mg/Sodium Chloride 50 ml @ 0 mls/hr 1X ONCE IV Last administered on 11/13/20at 13:49; Start 11/13/20 at 13:45; Stop 11/13/20 at 13:46; Status DC Sennosides (Senna) 17.2 mg PRN BID PRN PO CONSTIPATION, 2ND CHOICE; Start 11/13/20 at 13:45 Docusate Sodium (Colace) 100 mg PRN DAILY PRN PO HARD STOOLS; Start 11/13/20 at 13:45 Ondansetron HCl (Zofran) 4 mg PRN Q6HRS PRN IVP NAUSEA/VOMITING; Start 11/13/20 at 13:45 Dextrose (Dextrose 50%-Water Syringe) 12.5 gm PRN Q15MIN PRN IV SEE COMMENTS; Start 11/13/20 at 13:45 Sodium Chloride 1,000 ml @ 100 mls/hr Q10H IV Last administered on 11/17/20at 04:19; Start 11/13/20 at 13:45; Stop 11/17/20 at 11:23; Status DC Acetaminophen (Tylenol) 650 mg PRN Q4HRS PRN PO TEMP OVER 100.4F OR MILD PAIN; Start 11/13/20 at 13:45; Stop 11/14/20 at 12:04; Status DC Enoxaparin Sodium (Lovenox 40mg Syringe) 40 mg Q24H SQ Last administered on 11/22/20at 15:05; Start 11/13/20 at 14:00 Pantoprazole Sodium (PROTONIX VIAL for IV PUSH) 40 mg DAILYAC IVP Last administered on 11/21/20at 05:49; Start 11/14/20 at 07:30; Stop 11/21/20 at 10:40; Status DC Sodium Chloride 1,000 ml @ 1,000 mls/hr 1X ONCE IV Last administered on 11/13/20at 12:30; Start 11/13/20 at 14:00; Stop 11/13/20 at 14:59; Status DC Sodium Chloride 1,000 ml @ 1,000 mls/hr 1X ONCE IV Last administered on 11/13/20at 14:00; Start 11/13/20 at 14:00; Stop 11/13/20 at 14:59; Status DC Ondansetron HCl (Zofran) 4 mg PRN Q8HRS PRN IV NAUSEA/VOMITING; Start 11/13/20 at 15:15; Stop 11/14/20 at 08:06; Status DC Morphine Sulfate (Morphine Sulfate) 4 mg PRN Q2HR PRN IV PAIN; Start 11/13/20 at 15:15; Stop 11/14/20 at 15:14; Status DC Metronidazole 100 ml @ 100 mls/hr Q12HR IV Last administered on 11/15/20at 07:22; Start 11/13/20 at 19:00; Stop 11/15/20 at 11:33; Status DC Cefepime HCl (Maxipime) 2 gm Q24H IVP Last administered on 11/14/20at 16:34; Start 11/13/20 at 17:00; Stop 11/15/20 at 11:33; Status DC Midazolam HCl 100 ml @ 1 mls/hr CONT PRN IV SEE I/O RECORD; Start 11/13/20 at 19:30; Stop 11/17/20 at 10:02; Status DC Fentanyl Citrate 30 ml @ 0 mls/hr CONT PRN IV SEE PROTOCOL; Start 11/13/20 at 19:30; Stop 11/17/20 at 10:02; Status DC Daptomycin 480 mg/ Sodium Chloride 50 ml @ 100 mls/hr Q24H IV Last administered on 11/17/20at 09:44; Start 11/14/20 at 10:00; Stop 11/17/20 at 12:40; Status DC Propofol 100 ml @ 2.322 mls/ hr CONT PRN IV PER PROTOCOL Last administered on 11/17/20at 04:19; Start 11/14/20 at 11:30; Stop 11/17/20 at 10:03; Status DC Acetaminophen (Tylenol) 650 mg PRN Q4HRS PRN PO TEMP OVER 100.4F OR MILD PAIN; Start 11/14/20 at 12:00 Haloperidol (Haldol) 4 mg BID PO Last administered on 11/17/20at 10:14; Start 11/14/20 at 12:30; Stop 11/17/20 at 21:39; Status DC Polyethylene Glycol (miraLAX PACKET) 17 gm PRN DAILY PRN PO CONSTIPATION, 1ST CHOICE; Start 11/14/20 at 12:00 Benztropine Mesylate (Cogentin) 0.5 mg BID PO Last administered on 11/23/20 09:19; Start 11/14/20 at 12:30 Hydrochlorothiazide (Microzide) 12.5 mg DAILY PO Last administered on 11/23/20 09:19; Start 11/14/20 at 12:30 Quetiapine Fumarate (SEROquel) 400 mg QHS PO Last administered on 11/22/20 21:16; Start 11/14/20 at 21:00 Valproic Acid (Depakene) 500 mg BID PO Last administered on 11/15/20at 20:28; Start 11/14/20 at 12:30; Stop 11/16/20 at 09:47; Status DC Levetiracetam 500 mg/Dextrose 105 ml @ 420 mls/hr Q12HR IV Last administered on 11/18/20at 08:58; Start 11/14/20 at 12:45; Stop 11/18/20 at 13:40; Status DC Lorazepam (Ativan Inj) 2 mg PRN Q4HRS PRN IVP ANXIETY / AGITATION Last administered on 11/16/20 09:57; Start 11/14/20 at 13:15 Micafungin Sodium 100 mg/Dextrose 100 ml @ 100 mls/hr Q24H IV Last administered on 11/23/20 11:22; Start 11/15/20 at 12:00 Piperacillin Sod/ Tazobactam Sod 3.375 gm/Sodium Chloride 50 ml @ 100 mls/hr Q6HRS IV Last administered on 11/18/20at 05:30; Start 11/15/20 at 12:00; Stop 11/18/20 at 08:17; Status DC Valproic Acid (Depakene) 500 mg BID PEG Last administered on 11/17/20 08:52; Start 11/16/20 at 10:00; Stop 11/18/20 at 20:55; Status DC Potassium Bicarbonate (Potassium Effervescent Tablet) 40 meq 1X ONCE PO Last administered on 11/16/20at 10:35; Start 11/16/20 at 10:00; Stop 11/16/20 at 10:01 ; Status DC Scopolamine (Transderm-Scop) 1 patch Q3DAYS TD Last administered on 11/22/20 09:29; Start 11/16/20 at 11:00 Amino Acids/ Glycerin/ Electrolytes 1,000 ml @ 80 mls/hr [id number] IV Last administered on 11/23/20 11:29; Start 11/17/20 at 11:30 Fentanyl Citrate (Fentanyl 2ml Vial) 25 mcg PRN Q4HRS PRN IVP MODERATE TO SEVERE PAIN Last administered on 11/17/20at 18:44; Start 11/17/20 at 18:45 Haloperidol Lactate (Haldol Inj) 2 mg DAILY08 IVP Last administered on 11/23/20 09:19; Start 11/18/20 at 08:00 Ampicillin Sodium/ Sulbactam Sodium 3 gm/Sodium Chloride 100 ml @ 200 mls/hr Q6HRS IV Last administered on 11/23/20 05:48; Start 11/18/20 at 12:00; Stop 11/23/20 at 13:05; Status DC Levetiracetam (Keppra) 500 mg BID PO Last administered on 11/23/20 09:20; Start 11/18/20 at 21:00 Multivitamins (Thera M Plus) 1 tab DAILY PO Last administered on 11/23/20 09:19; Start 11/19/20 at 09:00 Ascorbic Acid (Vitamin C) 500 mg DAILY PO Last administered on 11/23/20 09:20; Start 11/19/20 at 09:00 Valproic Acid (Depakene) 500 mg BID PO Last administered on 11/23/20 09:19; Start 11/18/20 at 21:00 Lactobacillus Rhamnosus (Culturelle) 1 cap BID PO Last administered on 11/23/20 09:19; Start 11/19/20 at 21:00 Potassium Chloride (Klor-Con) 40 meq 1X ONCE PO Last administered on 11/20/20at 17:37; Start 11/20/20 at 14:15; Stop 11/20/20 at 14:18; Status DC Potassium Chloride (Klor-Con) 20 meq DAILYWBKFT PO Last administered on 11/23/20 09:19; Start 11/21/20 at 08:00; Stop 11/23/20 at 10:39; Status DC Pantoprazole Sodium (Protonix) 40 mg DAILYAC PO Last administered on 11/23/20at 05:47; Start 11/22/20 at 07:30 Potassium Chloride (Klor-Con) 40 meq 1X ONCE PO Last administered on 11/22/20at 15:05; Start 11/22/20 at 15:00; Stop 11/22/20 at 15:01; Status DC Potassium Chloride (Klor-Con) 20 meq DAILYWBKFT PO ; Start 11/23/20 at 08:00 Hydralazine HCl (Apresoline Inj) 10 mg PRN Q4HRS PRN IVP ELEVATED BP, SEE COMMENTS Last administered on 11/23/20at 11:19; Start 11/23/20 at 11:15 Amoxicillin/ Clavulanate Potassium (Augmentin 875/ 125mg) 1 tab BID PO ; Start 11/23/20 at 21:00; Stop 11/26/20 at 22:00 Active Scripts Active Tylenol (Acetaminophen) 325 Mg Tablet 650 Mg PO PRN Q4HRS PRN 30 Days Reported Seroquel (Quetiapine Fumarate) 400 Mg Tablet 2 Tab PO QHS Valproic Acid (Valproate Sodium) 500 Mg/10 Ml Solution 500 Mg PO BID Lisinopril 20 Mg Tablet 1 Tab PO DAILY Hydrochlorothiazide Tablet (Hydrochlorothiazide) 12.5 Mg Tablet 12.5 Mg PO DAILY Haloperidol 2 Mg Tablet 2 Tab PO BID Benztropine Mesylate 0.5 Mg Tablet 1 Tab PO BID Miralax (Polyethylene Glycol 3350) 17 Gm Powd.pack 1 Packet PO PRN DAILY PRN 2 Days dissolve in water Vital Signs Vital Signs Date Time Temp Pulse Resp B/P (MAP) Pulse Ox O2 Delivery O2 Flow Rate FiO2 11/23/20 11:19 88 184/108 11/23/20 11:00 98.3 17 99 Room Air 98.3 Labs Laboratory Tests Test 11/23/20 05:50 White Blood Count 8.6 x10^3/uL (4.0-11.0) Red Blood Count 2.65 x10^6/uL (4.30-5.70) Hemoglobin 7.2 g/dL (13.0-17.5) Hematocrit 22.2 % (39.0-53.0) Mean Corpuscular Volume 84 fL (79-100) Mean Corpuscular Hemoglobin 27 pg (25-35) Mean Corpuscular Hemoglobin Concent 32 g/dL (31-37) Red Cell Distribution Width 17.2 % (11.5-14.5) Platelet Count 509 x10^3/uL (140-400) Neutrophils (%) (Auto) 59 % (31-73) Lymphocytes (%) (Auto) 30 % (24-48) Monocytes (%) (Auto) 7 % (0-9) Eosinophils (%) (Auto) 3 % (0-3) Basophils (%) (Auto) 1 % (0-3) Neutrophils # (Auto) 5.1 x10^3/uL (1.8-7.7) Lymphocytes # (Auto) 2.6 x10^3/uL (1.0-4.8) Monocytes # (Auto) 0.6 x10^3/uL (0.0-1.1) Eosinophils # (Auto) 0.3 x10^3/uL (0.0-0.7) Basophils # (Auto) 0.1 x10^3/uL (0.0-0.2) Sodium Level 145 mmol/L (136-145) Potassium Level 3.7 mmol/L (3.5-5.1) Chloride Level 108 mmol/L (98-107) Carbon Dioxide Level 31 mmol/L (21-32) Anion Gap 6 (6-14) Blood Urea Nitrogen 17 mg/dL (8-26) Creatinine 0.8 mg/dL (0.7-1.3) Estimated GFR (Cockcroft-Gault) 117.8 Glucose Level 88 mg/dL (70-99) Calcium Level 8.4 mg/dL (8.5-10.1) Laboratory Tests Test 11/23/20 05:50 White Blood Count 8.6 x10^3/uL (4.0-11.0) Red Blood Count 2.65 x10^6/uL (4.30-5.70) Hemoglobin 7.2 g/dL (13.0-17.5) Hematocrit 22.2 % (39.0-53.0) Mean Corpuscular Volume 84 fL (79-100) Mean Corpuscular Hemoglobin 27 pg (25-35) Mean Corpuscular Hemoglobin Concent 32 g/dL (31-37) Red Cell Distribution Width 17.2 % (11.5-14.5) Platelet Count 509 x10^3/uL (140-400) Neutrophils (%) (Auto) 59 % (31-73) Lymphocytes (%) (Auto) 30 % (24-48) Monocytes (%) (Auto) 7 % (0-9) Eosinophils (%) (Auto) 3 % (0-3) Basophils (%) (Auto) 1 % (0-3) Neutrophils # (Auto) 5.1 x10^3/uL (1.8-7.7) Lymphocytes # (Auto) 2.6 x10^3/uL (1.0-4.8) Monocytes # (Auto) 0.6 x10^3/uL (0.0-1.1) Eosinophils # (Auto) 0.3 x10^3/uL (0.0-0.7) Basophils # (Auto) 0.1 x10^3/uL (0.0-0.2) Sodium Level 145 mmol/L (136-145) Potassium Level 3.7 mmol/L (3.5-5.1) Chloride Level 108 mmol/L (98-107) Carbon Dioxide Level 31 mmol/L (21-32) Anion Gap 6 (6-14) Blood Urea Nitrogen 17 mg/dL (8-26) Creatinine 0.8 mg/dL (0.7-1.3) Estimated GFR (Cockcroft-Gault) 117.8 Glucose Level 88 mg/dL (70-99) Calcium Level 8.4 mg/dL (8.5-10.1) Allergies Allergies Coded Allergies Type Severity Reaction Last Updated Verified No Known Drug Allergies 01/16/19 No Disposition/Orders: Other (D/C TO SNF) Justicifation of Admission Dx: Justifications for Admission: Justification of Admission Dx: N/A ITZEL MORALES MD November 23, 2020 13:32
--- NOTE | 2020-11-23 13:35 | CONS ---
DATE OF CONSULTATION: 11/23/2020 PODIATRIC CONSULTATION REASON FOR CONSULTATION: Evaluate and treat elongated mycotic nails. PAST MEDICAL HISTORY: This is a 64-year-old male with a history of alcohol dependency, anxiety, schizophrenia, hypertension. He resides at [facility]. He also has urinary retention. PAST SURGICAL HISTORY: None related. ALLERGIES: Not identified, none related. SOCIAL HISTORY: Unknown smoking. Alcohol use: History of alcoholism. Drug use: Not known. MEDICATIONS: Reviewed. Active strips: Lisinopril 20 mg, hydrochlorothiazide, haloperidol 2 mg, benztropine mesylate, valproic acid and MiraLax. LABORATORY DATA: Review of labs noting elevated glucose at 162 mg/dL. PHYSICAL EXAMINATION: DERMATOLOGIC: The patient has elongated mycotic nails of all digits. They are mild in thickness with some subungual debris distally. Decreased turgor. Very dry atrophic skin. Decrease in skin temperature distal. VASCULAR: Pedal pulses are diminished bilateral with dorsalis pedis harder to find. MUSCULOSKELETAL: Some mild hallux abductovalgus and hammertoe deformities noted. NEUROLOGIC: The patient is not very responsive to sharp and dull, but he was having tremor movements of lower extremity involuntarily. ASSESSMENT: 1. Clinical evidence of painful onychomycosis, onychocryptosis, onycholysis of all ten toenails. 2. Diminished vascularity, nine limb threatening. No open lesions or areas that need to be healed. 3. Apparent neurologic tremors. PLAN: Debridement of all mycotic nails performed using double action nail forceps and rotary drill. No hemorrhage incurred. The patient advised to be followed up by Podiatry at the [facility] probably in 3-[address] [facility] [place] Brigitte TID: [id number]
[2020-11-23] MEDS ORDERED: MICA100V4 IV (13:45)
[2020-11-23] MEDS ORDERED: DOCU-153 PO (13:45)
[2020-11-23] MEDS ORDERED: ENOX40DI3 SQ (13:45)
[2020-11-23] MEDS ORDERED: AMOX1TAB11 PO (13:45)
[2020-11-23] MEDS ORDERED: POTA20TA4 PO (13:45)
[2020-11-23] MEDS ORDERED: MULT1TAB92 PO (13:45)
[2020-11-23] MEDS ORDERED: ASCO500T4 PO (13:45)
[2020-11-23] MEDS ORDERED: LACT1CAP19 PO (13:45)
[2020-11-23] MEDS ORDERED: LEVE500T56 PO (13:45)
[2020-11-23] MEDS ORDERED: SCOP1PAT11 TD (13:45)
[2020-11-23] MEDS ORDERED: PANT40TA77 PO (13:45)
--- NOTE | 2020-11-23 13:46 | SNU/HH DC ---
DISCHARGE ORDERS DISCHARGE INFORMATION: FINAL DIAGNOSIS Problems Medical Problems: (1) Acute respiratory failure Status: Acute (2) Urinary tract infection Status: Acute CONDITION ON DISCHARGE: Stable CODE STATUS: Code Status: Full SENIOR LIVING: SNF STAY <30 DAYS: Yes HOSPICE: HOSPICE: No HOSPICE EVAL & TREAT: No LTAC: ADMIT TO LTAC: No POST DISCHARGE ORDERS: ACTIVITY ORDERS: Activity as tolerated, Bedrest today WEIGHT BEARING STATUS: As tolerated DIET AFTER DISCHARGE: Cardiac WOUND/INCISION CARE: Change dressing, Other, see below (WOUND VAC) CHECKS AFTER DISCHARGE: CHECKS AFTER DISCHARGE: Check blood press - daily FOLLOW-UP: PHYSICIAN FOLLOW-UP: INFECTIOUS DISEASE 1 WEEK ADDITIONAL FOLLOW-UP: WOUND CARE CLINIC [facility] LAB ORDERS FOR FOLLOW-UP: CBC, CMP within 2 weeks of discharge TREATMENT/EQUIPMENT ORDERS: ADAPTIVE EQUIPMENT NEEDED: None Physical Therapy For: Evalulation/Treatment Occupational Therapy For: Evaluation/Treatment Speech Language Pathology For: Evaluation/Treatment DISCHARGE MEDICATIONS: Home Meds Active Scripts Multivits,Ca,Minerals/Iron/Fa (THERA-M TABLET) 1 Each Tablet, 1 TAB PO DAILY for SUPPLEMENT for 30 Days, #30 TAB Prov:ITZEL MORALES MD 11/23/20 Ascorbic Acid (VITAMIN C) 500 Mg Tablet, 500 MG PO DAILY for SUPPLEMENT for 30 Days, #30 TAB Prov:ITZEL MORALES MD 11/23/20 Lactobacillus Rhamnosus Gg (CULTURELLE) 1 Each Cap.sprink, 1 CAP PO BID for SUPPLEMENT for 30 Days, #60 CAP Prov:ITZEL MORALES MD 11/23/20 Pantoprazole Sodium (PANTOPRAZOLE SODIUM ) 40 Mg Tablet.dr, 40 MG PO DAILYAC for GERD for 30 Days, #30 TAB.SR Prov:ITZEL MORALES MD 11/23/20 Scopolamine (TRANSDERM-SCOP) 1 Each Patch.td72, 1 PATCH TD Q3DAYS for NAUSEA for 10 Days, #4 PATCH Prov:ITEZL MORALES MD 11/23/20 Docusate Sodium (DOK) 100 Mg Capsule, 100 MG PO PRN DAILY PRN for HARD STOOLS for 30 Days, #60 CAP Prov:ITZEL MORALES MD 11/23/20 Potassium Chloride (KLOR-CON M20) 20 Meq Tab.er.prt, 20 MEQ PO DAILYWBKFT for SUPPLEMENT for 10 Days, #10 TAB.SR Prov:ITZEL MORALES MD 11/23/20 Levetiracetam (KEPPRA) 500 Mg Tablet, 500 MG PO BID for SEIZURES for 30 Days, #60 TAB Prov:ITZEL MORALES MD 11/23/20 Enoxaparin Sodium (ENOXAPARIN SODIUM) 40 Mg/0.4 Ml Disp.syrin, 40 MG SQ Q24H for DVT PREVENTION for 14 Days, #30 DIS.SYR Prov:ITZEL MORALES MD 11/23/20 Micafungin Sodium (Micafungin) 100 Mg Vial, 100 MG IV Q 24 HRS for INFECTION for 7 Days, #7 EACH Prov:ITZEL MORALES MD 11/23/20 Amoxicillin/Potassium Clav (AMOX TR-K CLV 875-125 MG TAB) 1 Each Tablet, 1 TAB PO BID for INFECTION for 7 Days, #14 TAB Prov:ITZEL MORALES MD 11/23/20 Acetaminophen (TYLENOL) 325 Mg Tablet, 650 MG PO PRN Q4HRS PRN for TEMP OVER 100.4F OR MILD PAIN for 30 Days, #60 TAB Prov:ITZEL MORALES MD 08/03/20 Reported Medications Quetiapine Fumarate (SEROQUEL) 400 Mg Tablet, 2 TAB PO QHS for Schizophrenia, #30 TAB 1 Refill 11/14/20 Valproate Sodium (VALPROIC ACID) 500 Mg/10 Ml Solution, 500 MG PO BID for Schizophrenia, MISC 11/14/20 Lisinopril (LISINOPRIL) 20 Mg Tablet, 1 TAB PO DAILY for HTN, #30 TAB 5 Refills 09/25/20 Hydrochlorothiazide (HYDROCHLOROTHIAZIDE TABLET) 12.5 Mg Tablet, 12.5 MG PO DAILY for DIURETIC, TAB 0 Refills 09/25/20 Haloperidol (HALOPERIDOL) 2 Mg Tablet, 2 TAB PO BID for Schizophrenia, #60 TAB 1 Refill 09/25/20 Benztropine Mesylate (BENZTROPINE MESYLATE) 0.5 Mg Tablet, 1 TAB PO BID for Tremors R/T schizophrenia, #60 TAB 09/25/20 Polyethylene Glycol 3350 (MIRALAX) 17 Gm Powd.pack, 1 PACKET PO PRN DAILY PRN for CONSTIPATION for 2 Days, PACKET 0 Refills dissolve in water 09/25/20 ITZEL MORALES MD November 23, 2020 13:46
[2020-11-23] MEDS: ENOXAPARIN 40 MG/0.4 ML SYRINGE. SQ SCH (14:09)
[2020-11-23 15:00] VITALS: BP 152/87
--- NOTE | 2020-11-23 15:35 | NUR ---
Attempt made to call report to [facility], they stated they would call back. Also message left for Dotty to coordinate brain picker time.
--- NOTE | 2020-11-23 17:23 | NUR ---
Pt. transferred to [place] via per their transportation. Mk in place, Denise francisco IV in tact.
[2020-11-23] MEDS ORDERED: AMOXICILLIN/K CLAV 875/125MG TABLET. PO SCH (21:00)
== END 2020-11-23 17:24 | DRG 871 ==
LOC: ER 11:59 → 1 WEST ICU 15:11 → 4 NORTH 11-18 18:49
PROVIDERS: ADMIT Internal Medicine; ATTEND Internal Medicine
PROC: 5A1945Z Respiratory Ventilation, 24-96 Consecutive Hours (ICD-10-PCS; 2020-11-13)
PROC: 0BH17EZ Insertion of Endotracheal Airway into Trachea, Via Natural or Artificial Opening (ICD-10-PCS; 2020-11-13)
PROC: 5A1945Z Respiratory Ventilation, 24-96 Consecutive Hours (ICD-10-PCS; 2020-11-13)
PROC: 0HBRXZZ Excision of Toe Nail, External Approach (ICD-10-PCS; principal; 2020-11-14)
PROC: 0HBRXZZ Excision of Toe Nail, External Approach (ICD-10-PCS; 2020-11-14)
PROC: 0HBRXZZ Excision of Toe Nail, External Approach (ICD-10-PCS; 2020-11-14)
PROC: 0HBRXZZ Excision of Toe Nail, External Approach (ICD-10-PCS; 2020-11-14)
PROC: 0HBRXZZ Excision of Toe Nail, External Approach (ICD-10-PCS; 2020-11-14)
PROC: 0HBRXZZ Excision of Toe Nail, External Approach (ICD-10-PCS; 2020-11-14)
PROC: 0HBRXZZ Excision of Toe Nail, External Approach (ICD-10-PCS; 2020-11-14)
PROC: 0HBRXZZ Excision of Toe Nail, External Approach (ICD-10-PCS; 2020-11-14)
PROC: 0HBRXZZ Excision of Toe Nail, External Approach (ICD-10-PCS; 2020-11-14)
PROC: 0HBRXZZ Excision of Toe Nail, External Approach (ICD-10-PCS; 2020-11-14)
DX: A41.81 Sepsis due to Enterococcus (principal); L89.154 Pressure ulcer of sacral region, stage 4; J96.01 Acute respiratory failure with hypoxia; G93.41 Metabolic encephalopathy; R65.21 Severe sepsis with septic shock; G21.19 Other drug induced secondary parkinsonism; N13.6 Pyonephrosis; F10.10 Alcohol abuse, uncomplicated; F20.9 Schizophrenia, unspecified; F41.9 Anxiety disorder, unspecified; T50.995A Adverse effect of other drugs, medicaments and biological substances, initial encounter; Y92.89 Other specified places as the place of occurrence of the external cause; G40.909 Epilepsy, unspecified, not intractable, without status epilepticus; I12.9 Hypertensive chronic kidney disease with stage 1 through stage 4 chronic kidney disease, or unspecified chronic kidney disease; I27.20 Pulmonary hypertension, unspecified; K59.00 Constipation, unspecified; L60.0 Ingrowing nail; L60.1 Onycholysis; N18.9 Chronic kidney disease, unspecified; Z66 Do not resuscitate; Z86.73 Personal history of transient ischemic attack (TIA), and cerebral infarction without residual deficits; F32.9 Major depressive disorder, single episode, unspecified
CPT/HCPCS: 31500; 36415; 36600; 70450; 71045; 74177; 80048; 80053; 81001; 82805; 82962; 83605; 83735; 84100; 84484; 85007; 85025; 85610; 85730; 87040; 87071; 87075; 87076; 87077; 87086; 87106; 87186; 87205; 93005; 94003; 95816; 96365; 96375; 99291; C9113; J0295; J0330; J0360; J0692; J0878; J1630; J1650; J1885; J1953; J2060; J2248; J2250; J2543; J2704; J3010; J3370; J3490; J7030; J7040; J7060; Q9967; 92526-GN; 92610-GN; G0378

== ENCOUNTER 2021-07-19 12:58 | Emergency (ER) | payer MEDICARE, OTHER ==
[~2021-07-19] VITALS: Ht 188 cm; Wt 84.1 kg
[~2021-07-19 12:58] MED LIST changes: +AMLO-186 PO; +AMOX1TAB11 PO; +ASPI-886 PO; +ATOR10TA60 PO; +BACI28.34 TP; +DOCU-148 PO; -DOCU-153 PO; +ENOX40DI3 SQ; +KETO15CR2 TP; +LEVE500T56 PO; -LEVO500T8 PO; +LEVO500T9 PO; +LORA0.5T96 PO; +MAG30ORA2 PO; +METO25TA4 PO; +MICA100V4 IV; +MULT1TAB92 PO; +PANT40TA77 PO; +POTA-121 PO; -QUET100T PO; +QUET100T2 PO; +QUET400T4 PO; +SCOP1PAT12 TD; +VALP500S PO
--- NOTE | 2021-07-19 13:32 | PHYS DOC ---
Past Medical History Past Medical History: Alcoholism, Anxiety, Constipation, Hypertension, Sc hizophrenia Additional Past Medical Histor: falls, urinary retention, sepsis (SILVERIO NELSON APRN) Past Surgical History: No Surgical History (SILVERIO NELSON APRN) Smoking Status: Unknown if ever smoked Alcohol Use: None Drug Use: None (SILVERIO NELSON APRN) General Adult EDM: Chief Complaint: SYNCOPE HPI: HPI: Patient is a 65 year old male who presents with syncopal episode by EMS from [facility]. Staff at [facility] states they were showering the patient when he had a syncopal episode. Patient was sitting in a shower chair and was caught by staff before falling. Staff denies patient hitting his head or any injuries. Staff reports patient was unresponsive for only a few seconds. Denies chest pain, shortness of breath, pain. Patient was sent in per family request. Patient has history of schizophrenia, seizures, hyperlipidemia, hypertension, anxiety. (SILVERIO NELSON APRN) Review of Systems: Review of Systems: ROS At least 10 ROS systems have been reviewed and are negative except as documented in the HPI. General: Negative except as outlined in HPI above. Skin: Negative except as outlined in HPI above. HEENT: Negative except as outlined in HPI above. Neck: Negative except as outlined in HPI above. Respiratory: Negative except as outlined in HPI above.. Cardiovascular: Negative except as outlined in HPI above. Abdomen: Negative except as outlined in HPI above. : Negative except as outlined in HPI above. Back/MSK: Negative except as outlined in HPI above. Neuro: Negative except as outlined in HPI above. Psych: Negative except as outlined in HPI above. (SILVERIO NELSON APRN) Heart Score: C/O Chest Pain: No Risk Factors: Risk Factors: DM, Current or recent (<one month) smoker, HTN, HLP, family history of CAD, obesity. Risk Scores: Score 0 - 3: 2.5% MACE over next 6 weeks - Discharge Home Score 4 - 6: 20.3% MACE over next 6 weeks - Admit for Clinical Observation Score 7 - 10: 72.7% MACE over next 6 weeks - Early Invasive Strategies (SILVERIO NELSON APRN) Allergies: Allergies: Allergies Coded Allergies Type Severity Reaction Last Updated Verified No Known Drug Allergies 01/16/19 No (SILVERIO NELSON APRN) Physical Exam: PE: Constitutional: Well developed, well nourished, no acute distress, non-toxic appearance. [] HENT: Normocephalic, atraumatic, bilateral external ears normal, oropharynx moist, no oral exudates, nose normal. [] Eyes: PERRLA, EOMI, conjunctiva normal, no discharge. [] Neck: Normal range of motion, no tenderness, supple, no stridor. [] Cardiovascular:Heart rate regular rhythm, no murmur [] Lungs & Thorax: Bilateral breath sounds clear to auscultation [] Abdomen: Bowel sounds normal, soft, no tenderness, no masses, no pulsatile masses. [] Skin: Warm, dry, no erythema, no rash. [] Back: No tenderness, no CVA tenderness. [] Extremities: No tenderness, no cyanosis, no clubbing, ROM intact, no edema. [] Neurologic: Alert and oriented X 2, normal motor function, normal sensory function, no focal deficits noted. [] Psychologic: Affect normal, judgement normal, mood normal. [] (SILVERIO NELSON APRN) Current Patient Data: Vital Signs: Vital Signs Date Time Temp Pulse Resp B/P (MAP) Pulse Ox O2 Delivery O2 Flow Rate FiO2 07/19/21 12:58 97.3 71 18 115/77 (90) 96 Room Air 97.3 (SILVERIO NELSON APRN) EKG: EKG: Sinus rhythm. Heart rate 62 bpm. No STEMI. Read by Dr. Gomez at 1218 [] (SILVERIO NELSON APRN) Radiology/Procedures: Radiology/Procedures: []EXAM: Head CT without contrast. HISTORY: Syncope. TECHNIQUE: Computed tomographic images of the head were obtained without contrast. *One or more of the following individualized dose reduction techniques were utilized for this examination: 1. Automated exposure control. 2. Adjustment of the mA and/or kV according to patient size. 3. Use of iterative reconstruction technique. COMPARISON: 01/27/2021. FINDINGS: There is no acute or subacute extra-axial or intraparenchymal hemorrhage. There is no mass effect or midline shift. There is no hydrocephalus. There are areas of decreased attenuation within the cerebral white matter, nonspecific and likely related to chronic small vessel disease. There is a suspected small chronic infarct involving the left basal ganglia. The visualized portions of the orbits, paranasal sinuses and mastoid air cells are unremarkable. No suspicious calvarial lesion is seen. IMPRESSION: 1. No acute intracranial finding. MRI is more sensitive for acute infarction. 2. Bilateral cerebral white matter changes, likely due to chronic small vessel disease. 3. 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 4. Cerebral volume loss. Electronically signed by: Myra Farley MD (07/19/2021 2:32 PM) [id number] EXAM: Chest, single view. HISTORY: Syncope. COMPARISON: 01/30/2021 FINDINGS: A frontal view of the chest is obtained. There is no infiltrate, pleural effusion or pneumothorax. There is a stable cardiac silhouette. There are prominent air-filled loops of bowel within the left upper quadrant. IMPRESSION: No acute pulmonary finding. Electronically signed by: Myra Farley MD (07/19/2021 2:33 PM) [id number] (SILVERIO NELSON APRN) Course & Med Decision Making: Course & Med Decision Making Pertinent Labs and Imaging studies reviewed. (See chart for details) [] 65-year-old male presents with syncopal episode. Work-up in ER consisted of labs, urinalysis, EKG, chest x-ray, CT head. CT head and chest x-ray are unremarkable. Hemoglobin, 7.4, hematocrit 22.9. No obvious signs of bleeding. Rectal exam performed. Fecal occult blood sent to rule out bleeding. Fecal occult blood was positive. Spoke with Dr. Rollins regarding patient case. Dr. Rollins felt patient was appropriate to be discharged to home and to see GI on outpatient appointment due to anemia being chronic. Urine was positive for nitrates and leuks. Patient given 1 dose of Rocephin while in the ER. Sending patient home with antibiotic for UTI. Patient given instructions for outpatient GI follow-up. Patient is hemodynamically stable upon disposition. (SILVERIO NELSON APRN) Course & Med Decision Making I was the Attending physician on the above date of service of this patient. This patient was evaluated, examined, treated, and dispositioned from the emergency department by the mid-level practitioner. Although I was working at the time , no assistance was requested. Electronically signed, Vitaly Gomez DO (VITALY GOMEZ DO) Dragon Disclaimer: Dragon Disclaimer: This electronic medical record was generated, in whole or in part, using a voice recognition dictation system. (SILVERIO NELSON APRN) Departure Departure Impression: Primary Impression: UTI (urinary tract infection) Qualified Codes: N30.00 - Acute cystitis without hematuria Additional Impressions: Syncope Qualified Codes: R55 - Syncope and collapse Anemia, chronic disease Disposition: HOME / SELF CARE / HOMELESS Condition: STABLE Referrals: LISA CASTAÑEDA MD (PCP) Patient Instructions: Urinary Tract Infection, [id number] Additional Instructions: You were seen in the emergency room for near syncopal episode. Your urine was positive for infection. Given 1 dose of antibiotic, Rocephin, while in the ER. Your hemoglobin was decreased, 7.4, just similar to previous visits. You need to follow-up with your primary care doctor for referral for GI and further management. Return to emergency room with worsening symptoms or concerns. EMERGENCY DEPARTMENT GENERAL DISCHARGE INSTRUCTIONS Thank you for coming to [facility] Emergency Department (ED) today and trusting us with you care. We trust that you had a positive experience in our Emergency Department. If you wish to speak to the department management, you may call the Director at [phone]. YOUR FOLLOW UP INSTRUCTIONS ARE FOLLOWS: 1. Do you have a private Doctor? If you do not have a private doctor, please ask for a resource list of physicians or clinics that may be able to assist you with follow up care. 2. The Emergency Physicain has interpreted your x-rays. The X-Ray specialist will also review them. If there is a change in the findings, you will be notified in 48 hours when at all possible. 3. A lab test or culture has been done, your results will be reviewed and you will be notified if you need a change in treatment. ADDITIONAL INSTRUCTIONS AND INFORMATION: 1. Your care today has been supervised by a physician who is specially trained in emergency care. Many problems require more than one evaluation for a complete diagnosis and treatment. We recommend that you schedule your follow up appointment as recommended to ensure complete treatment of you illness or injury. If you are unable to obtain follow up care and continue to have a problem, or if your condition worsens, we recommend that you return to the ED. 2. We are not able to safely determine your condition over the phone nor are we able to give sound medical advice over the phone. For these safety reasons, if you call for medical advice we will ask you to come to the ED for further evaluation. 3. If you have any questions regarding these discharge instructions please call the ED at [phone]. SAFETY INFORMATION: In the interest of safety, wellness, and injury prevention; we encourage you to wear your sealbelt, if you smoke; quite smoking, and we encourage family to use a protec tive helmet for bicycling and other sporting events that present an increased risk for head injury. IF YOUR SYMPTOMS WORSEN OR NEW SYMPTOMS DEVELOP, OR YOU HAVE CONCERNS ABOUT YOUR CONDITION; OR IF YOUR CONDITION WORSENS WHILE YOU ARE WAITING FOR YOUR FOLLOW UP APPOINTMENT; EITHER CONTACT YOUR PRIMARY CARE DOCTOR, THE PHYSICIAN WHOSE NAME AND NUMBER YOU WERE GIVEN, OR RETURN TO THE ED IMMEDIATELY. Scripts Ciprofloxacin Hcl (CIPROFLOXACIN HCL) 500 Mg Tablet 500 MG PO BID for 10 Days, #20 TAB Prov: SILVERIO NELSON APRN 07/19/21 SILVERIO NELSON APRN Jul 19, 2021 13:32 VITALY GOMEZ DO Jul 20, 2021 07:21
[2021-07-19 13:42] LABS: BASO # 0.1 x10^3/uL (0.0-0.2); BASO % 1 % (0-3); EOS % 0 % (0-3); HEMATOCRIT 22.9 % (39.0-53.0); HEMOGLOBIN 7.4 g/dL (13.0-17.5); LYMPH % 22 % (24-48); MEAN CORPUSCULAR HEMOGLOBIN 28 pg (25-35); MEAN CORPUSCULAR HGB CONC 32 g/dL (31-37); MEAN CORPUSCULAR VOLUME 85 fL (79-100); MONO # 0.3 x10^3/uL (0.0-1.1); MONO % 4 % (0-9); NEUT # 6.6 x10^3/uL (1.8-7.7); NEUT % 74 % (31-73); PLATELET COUNT 143 x10^3/uL (140-400); RED BLOOD COUNT 2.69 x10^6/uL (4.30-5.70); RED CELL DISTRIBUTION WIDTH 18.5 % (11.5-14.5)
[2021-07-19 14:06] LABS: CALCIUM 8.3 mg/dL (8.5-10.1); CREATININE 1.4 mg/dL (0.7-1.3); GFR 61.5
[2021-07-19 14:11] LABS: ALBUMIN 2.6 g/dL (3.4-5.0); ALBUMIN/GLOBULIN RATIO 0.6 (1.0-1.7); MAGNESIUM 2.7 mg/dL (1.8-2.4); TOTAL BILIRUBIN 0.1 mg/dL (0.2-1.0); TOTAL PROTEIN 7.3 g/dL (6.4-8.2)
--- NOTE | 2021-07-19 14:34 | RAD ---
EXAM: Head CT without contrast. HISTORY: Syncope. TECHNIQUE: Computed tomographic images of the head were obtained without contrast. *One or more of the following individualized dose reduction techniques were utilized for this examina tion: 1. Automated exposure control. 2. Adjustment of the mA and/or kV according to patient size. 3. Use of iterative reconstruction technique. COMPARISON: 01/27/2021. FINDINGS: There is no acute or subacute extra-axial or intraparenchymal hemorrhage. There is no mass effect or midline shift. There is no hydrocephalus. There are areas of decreased attenuation within the cerebral white matter, nonspecific and likely rel ated to chronic small vessel disease. There is a suspected small chronic infarct involving the left b michael ganglia. The visualized portions of the orbits, paranasal sinuses and mastoid air cells are unremarkable. No s uspicious calvarial lesion is seen. IMPRESSION: 1. No acute intracranial finding. MRI is more sensitive for acute infarction. 2. Bilateral cerebral white matter changes, likely due to chronic small vessel disease. 3. 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 4. Cerebral volume loss. Electronically signed by: Myra Farley MD (07/19/2021 2:32 PM) [id number]
--- NOTE | 2021-07-19 14:35 | RAD ---
EXAM: Chest, single view. HISTORY: Syncope. COMPARISON: 01/30/2021 FINDINGS: A frontal view of the chest is obtained. There is no infiltrate, pleural effusion or pneumo thorax. There is a stable cardiac silhouette. There are prominent air-filled loops of bowel within th e left upper quadrant. IMPRESSION: No acute pulmonary finding. Electronically signed by: Myra Farley MD (07/19/2021 2:33 PM) [id number]
[2021-07-19 14:47] LABS: BILIRUBIN,URINE NEGATIVE (NEG); CLARITY,URINE TURBID; COLOR,URINE YELLOW; NITRITE,URINE POSITIVE (NEG); PH,URINE 8.5 (<5.0-8.0); PROTEIN,URINE 100 mg/dL (NEG-TRACE)
[2021-07-19 14:59] LABS: AMORPHOUS SEDIMENT,UR PRESENT /HPF; BACTERIA,URINE MANY /HPF (0-FEW); WBC,URINE 20-40 /HPF (0-4)
[2021-07-19 15:41] LABS: FECAL OB PT POSITIVE (NEG)
--- NOTE | 2021-07-19 16:02 | EKG ---
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
[2021-07-19] MEDS ORDERED: PANTOPRAZOLE IV PUSH 40 MG VIAL. IVP ONE (16:15)
[2021-07-19] MEDS ORDERED: cefTRIAXone IM 1 GM VIAL IM ONE (16:15)
[2021-07-19] MEDS ORDERED: CIPR500T2 PO (16:45)
[2021-07-19 18:30] VITALS: BP 135/86
== END 2021-07-19 19:00 | disposition home or self-care (01) ==
LOC: ER 12:58
DX: N39.0 Urinary tract infection, site not specified (principal); R55 Syncope and collapse; I10 Essential (primary) hypertension; F20.9 Schizophrenia, unspecified
CPT/HCPCS: 36415; 70450; 71045; 80053; 81001; 82274; 83735; 84484; 85025; 86850; 86900; 86901; 87086; 93005; 99285-25

== ENCOUNTER 2021-09-09 01:45 | Inpatient (IN) | payer MEDICARE, OTHER ==
[~2021-09-09] VITALS: Ht 188 cm; Wt 77.3 kg
[~2021-09-09 01:45] MED LIST changes: +BUSP5TAB PO; +CIPR500T2 PO
[2021-09-09] MEDS ORDERED: IV NORMAL SALINE 1000ML BAG 1,000 ML IV ONE (02:00)
[2021-09-09] MEDS ORDERED: cefTRIAXone IV Push 1 GM VIAL. IVP ONE (02:00)
--- NOTE | 2021-09-09 02:05 | PHYS DOC ---
Past Medical History Past Medical History: Alcoholism, Anxiety, Constipation, Hypertension, Sc hizophrenia Additional Past Medical Histor: falls, urinary retention, sepsis Past Surgical History: No Surgical History Smoking Status: Never Smoker Alcohol Use: None Drug Use: None General Adult EDM: Chief Complaint: GTUBE REPLACEMENT/MALFUNCTION HPI: HPI: 65-year-old male past medical history of schizophrenia, hypertension, alcohol abuse, urinary retention with indwelling Terrazas, GERD, dysphagia, anemia, upper GIB (07/2021) with recent G-tube placed on September [address] Lopez (4 days ago), presents to the ED brought in by EMS from [facility] with concern for G-tube dislodgment. EMS is unsure when patient's G-tube fell out -reports the tube was on pts' abdomen when they arrived. Patient denies any active abdominal pain during exam. Review of Systems: Review of Systems: Constitutional: Denies fever or chills. [] Eyes: Denies change in visual acuity. [] HENT: Denies nasal congestion or sore throat. [] Respiratory: Denies cough or shortness of breath. [] Cardiovascular: Denies chest pain or edema. [] GI: Denies abdominal pain, nausea, vomiting, : Denies dysuria or hematuria Musculoskeletal: Denies back pain or joint pain. [] Integument: Denies rash or diaphoresis Neurologic: Denies headache, focal weakness or sensory changes. [] Endocrine: Denies polyuria or polydipsia. [] Lymphatic: Denies swollen glands. [] Psychiatric: Denies depression or anxiety. [] Heart Score: C/O Chest Pain: No Risk Factors: Risk Factors: DM, Current or recent (<one month) smoker, HTN, HLP, family history of CAD, obesity. Risk Scores: Score 0 - 3: 2.5% MACE over next 6 weeks - Discharge Home Score 4 - 6: 20.3% MACE over next 6 weeks - Admit for Clinical Observation Score 7 - 10: 72.7% MACE over next 6 weeks - Early Invasive Strategies Current Medications: Current Medications Medications (Trade) Dose Ordered Sig/Jeffrey Start Time Stop Time Status Last Admin Dose Admin Ceftriaxone Sodium (Rocephin) 1 gm 1X ONCE 09/09/21 02:00 09/09/21 02:01 UNV Sodium Chloride 1,000 ml @ 75 mls/hr 1X ONCE 09/09/21 02:00 09/09/21 15:19 UNV Allergies: Allergies: Allergies Coded Allergies Type Severity Reaction Last Updated Verified I S O L A T I O N *CONTACT* Allergy Unknown 09/04/21 Yes No Known Medication Allergies Allergy Unknown 09/04/21 Yes Physical Exam: PE: Constitutional: no acute distress, non-toxic appearance. HENT: Normocephalic, atraumatic, honey crusted lesions in pts' eyebrows/moustache/stringer-areas of facial hair with underlying erythmea Eyes: EOMI, conjunctiva normal, no discharge. Neck: Normal range of motion, supple, Cardiovascular: S1/2 present, regular rhythm Lungs & Thorax: Speaking in full sentences, bilateral equal chest rise, no tachypnea or increased work of breathing Abdomen: soft, no tenderness, no distention, left upper quadrant G-tube insertion site with scant blood and appears slightly healed over Skin: Warm, dry, no erythema, no rash. [] Extremities: No tenderness, no cyanosis, Neurologic: Alert and oriented X 3, normal motor function, normal sensory function, no focal deficits noted. [] Psychologic: Affect normal, judgement normal, mood normal. [] EKG: EKG: [] Radiology/Procedures: Radiology/Procedures: [] Course & Med Decision Making: Course & Med Decision Making Pertinent Labs and Imaging studies reviewed. (See chart for details) Concern for G-tube dislodgment in a hemodynamically stable male with no abdominal pain on physical exam. Labs grossly unremarkable. Cultures pending- started on abx. Will admit for further medical management, monitoring for peritonitis and GI consultation. The patient has been stabilized within the capability of the emergency department. The patient will be transported for further care and management or will be moved to an observation or inpatient service. I have communicated with the staff or medical practitioner taking over this patient's care. Gifty Disclaimer: Gifty Disclaimer: This electronic medical record was generated, in whole or in part, using a voice recognition dictation system. Departure Departure Impression: Primary Impression: Dislodged gastrostomy tube Additional Impression: Normocytic anemia Disposition: ADMITTED INPATIENT Admitting Physician: CLEMENT (Dr. Rollins) Condition: STABLE SCOOTER GOMEZ DO Sep 09, 2021 02:05
[2021-09-09 02:31] LABS: BASO # 0.1 x10^3/uL (0.0-0.2); BASO % 1 % (0-3); EOS # 0.2 x10^3/uL (0.0-0.7); EOS % 2 % (0-3); HEMATOCRIT 29.5 % (39.0-53.0); HEMOGLOBIN 9.6 g/dL (13.0-17.5); LYMPH % 22 % (24-48); MEAN CORPUSCULAR HEMOGLOBIN 30 pg (25-35); MEAN CORPUSCULAR HGB CONC 32 g/dL (31-37); MEAN CORPUSCULAR VOLUME 93 fL (79-100); MONO # 0.7 x10^3/uL (0.0-1.1); MONO % 7 % (0-9); NEUT # 6.3 x10^3/uL (1.8-7.7); NEUT % 68 % (31-73); PLATELET COUNT 353 x10^3/uL (140-400); RED BLOOD COUNT 3.17 x10^6/uL (4.30-5.70); RED CELL DISTRIBUTION WIDTH 19.7 % (11.5-14.5); WHITE BLOOD COUNT 9.2 x10^3/uL (4.0-11.0)
[2021-09-09 02:51] LABS: CALCIUM 8.7 mg/dL (8.5-10.1); CREATININE 1.2 mg/dL (0.7-1.3); GFR 73.5; POTASSIUM 3.6 mmol/L (3.5-5.1)
[2021-09-09 02:57] LABS: ALBUMIN 2.5 g/dL (3.4-5.0); ALBUMIN/GLOBULIN RATIO 0.4 (1.0-1.7); TOTAL BILIRUBIN 0.2 mg/dL (0.2-1.0); TOTAL PROTEIN 8.5 g/dL (6.4-8.2)
--- NOTE | 2021-09-09 03:35 | NUR ---
Admit to room 563 from ED. Patient A&O but not interactive. Didn't give a reason why he pulled his G tube out. LUQ site SY, no bleeding. Apparent scabbed area to base of right neck (central line). Has tremors. Terrazas in place, date on bag 09/05/21. Has open wounds on coccyx. 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 Consults to Dr. Lopez, Wound Care and Nutrition.
[2021-09-09 03:40] VITALS: BP 139/100
[2021-09-09 07:00] VITALS: BP 152/98
[2021-09-09] MEDS ORDERED: ACETAMINOPHEN 650 MG SUPP.RECT. PR PRN (07:45)
[2021-09-09] MEDS ORDERED: hydrALAZINE 20 MG/ML VIAL. IVP PRN (07:45)
[2021-09-09] MEDS ORDERED: BISACODYL 10 MG SUPP.RECT. PR PRN (07:45)
[2021-09-09] MEDS ORDERED: ONDANSETRON PF 4 MG/2 ML VIAL. IVP PRN (07:45)
[2021-09-09] MEDS ORDERED: IV DEXTROSE 5%-LACT RINGERS 1,000 ML IV SCH (07:45)
[2021-09-09] MEDS ORDERED: PANTOPRAZOLE IV PUSH 40 MG VIAL. IVP SCH (07:45)
--- NOTE | 2021-09-09 07:51 | PDOC1 ---
History and Physical Date of Admission Date of Admission DATE: 09/09/21 TIME: 07:39 Identification/Chief Complaint Chief Complaint Dysphagia, dislodged PEG Source Source: Caregiver, Chart review, Patient History of Present Illness History of Present Illness Mr Gustafson is a 65yo male PMHx schizophrenia, h/o heavy ETOH abuse, depression with anxiety, HTN, constipation who presented from his [facility] for dislodged PEG tube. He was recently admitted 07/22/21-08/02/21 for GI bleed and was ultimately discharged to [facility] on 08/02/2021 IV TPN Keppra metoprolol Lasix Zyvox Zosyn and started on dialysis and prn BiPAP. Had G-tube placement 09/05/2021 and was discharged back to [facility] cigar roller [facility] care at [facility] Returns to the ED overnight 09/09/2021 due to dislodged PEG tube Labs with WBC 9.2, Hb 9.6, platelets 353, NA 147, K3.6, BUN 17, CR 1.2, glucose 78, calcium 8.7, bilirubin 0.2, AST 23, ALT 16, alkaline phosphatase 60, albumin 2.5, lactic acid 1.1, rapid COVID-19 negative, valproic acid level 50. Seen bedside bilateral hand parkinsonian tremors and some cogwheeling upper and lower extremities. He does not have any complaints. Is not oriented to month Past Medical History Cardiovascular: HTN CENTRAL NERVOUS SYSTEM: CVA, Other GI: GERD, Other Psych: Schizophrenia Renal/: Acute renal failure, Urinary Incontinence, Other Past Surgical History Past Surgical History: Other (PEG 08/2021) Family History Family History: Family History Unknown Social History Smoke: Quit ALCOHOL: other Drugs: None Current Problem List Problem List Problems Medical Problems: (1) Normocytic anemia Status: Acute Current Medications Current Medications Current Medications Ceftriaxone Sodium (Rocephin) 1 gm 1X ONCE IVP Last administered on 09/09/21at 02:21; Start 09/09/21 at 02:00; Stop 09/09/21 at 02:01; Status DC Sodium Chloride 1,000 ml @ 75 mls/hr 1X ONCE IV Last administered on 09/09/21at 02:21; Start 09/09/21 at 02:00; Stop 09/09/21 at 15:19 Mupirocin (Bactroban) 1 marco BID TP ; Start 09/09/21 at 09:00 Active Scripts Active Pantoprazole Sodium (Pantoprazole Sodium) 40 Mg Tablet.dr 40 Mg PO DAILYAC 30 Days Amlodipine Besylate 5 Mg Tablet 5 Mg PO DAILY 30 Days Metoprolol Tartrate 25 Mg Tablet 12.5 Mg PO BID 30 Days Atorvastatin Calcium 10 Mg Tablet 10 Mg PO QHS 30 Days Tylenol (Acetaminophen) 325 Mg Tablet 650 Mg PO PRN Q4HRS PRN 30 Days Reported Buspirone Hcl 5 Mg Tablet 7.5 Mg PO TID Allergies Allergies: Coded Allergies: I S O L A T I O N *CONTACT* (Verified Allergy, Unknown, 09/04/21) MRSA No Known Medication Allergies (Verified Allergy, Unknown, 09/04/21) ROS General: YES: Fatigue, Malaise; No: Chills, Night Sweats, Appetite, Other PSYCHOLOGICAL ROS: YES: Anxiety, Concentration difficultie, Disorientation, Memory difficulties, Mood Swings, Obsessive thoughts; No: Behavioral Disorder, Decreased libido, Depression, Hallucinations, Hostility, Irritablity, Physical abuse, Sexual abuse, Sleep disturbances, Muniz icidal ideation, Other Eyes: No Blurry vision, No Decreased vision, No Double vision, No Dry eyes, No Excessive tearing, No Eye Pain, No Itchy Eyes, No Loss of vision, No Photophobia, No Scotomata, No Uses contacts, No Uses glasses, No Other HEENT: No: Heacaches, Visual Changes, Hearing change, Nasal congestion, Nasal discharge, Oral lesions, Sinus pain, Sore Throat, Epistaxis, Sneezing, Snoring, Tinnitus, Vertigo, Vocal changes, Other ALLERGY AND IMMUNOLOGY: No: Hives, Insect Bite Sensitivity, Itchy/Watery Eyes, Nasal Congestion, Post Nasal Drip, Seasonal Allergies, Other Hematological and Lymphatic: YES: Bleeding Problems; No: Blood Clots, Blood Transfusions, Brusing, Night Sweats, Pallor, Swollen Lymph Nodes, Other ENDOCRINE: No: Breast Changes, Galactorrhea, Hair Pattern Changes, Hot Flashes, Malaise/lethargy, Mood Swings, Palpitations, Polydipsia/polyuria, Skin Changes, Temperature Intolerance, Unexpected Weight Changes, Other Breast: No New/Changing Breast Lumps, No Nipple changes, No Nipple discharge, No Other Respiratory: No: Cough, Hemoptysis, Orthopnea, Pleuritic Pain, Shortness of breath, SOB with excertion, Sputum Changes, Stridor, Tachypnea, Wheezing, Other Cardiovascular: No Chest Pain, No Palpitations, No Orthopnea, No Paroxysmal Noc. Dyspnea, No Edema, No Lt Headedness, No Other Gastrointestinal: Yes Abdominal Pain; No Nausea, No Vomiting, No Diarrhea, No Constipation, No Melena, No Hematochezia, No Other Genitourinary: No Dysuria, No Frequency, No Incontinence, No Hematuria, No Retention, No Discharge, No Urgency, No Pain, No Flank Pain, No Other, No , No , No , No , No , No , No Musculoskeletal: Yes Gait Disturbance, Yes Muscular Weakness Neurological: Yes Dizziness, Yes Gait Disturbance, Yes Tremors; No Behavorial Changes, No Bowel/Bladder ControlChng, No Confusion, No Headaches, No Impaired Coord/balance, No Memory Loss, No Numbness/Tingling, No Seizures, No Speech Problems, No Visual Changes, No Weakness, No Other Skin: No Dry Skin, No Eczema, No Hair Changes, No Lumps, No Mole Changes, No Mottling, No Nail Changes, No Pruritus, No Rash, No Skin Lesion Changes, No Other, No Acne Physical Exam General: Alert, Cooperative, No acute distress HEENT: Atraumatic, PERRLA, EOMI, Mucous membr. moist/pink Lungs: Clear to auscultation, Normal air movement Heart: S1S2, RRR, no thrills, no rubs, no gallops, no murmurs Abdomen: Normal bowel sounds, Soft, No hepatosplenomegaly, Other (LUQ PEG site scan bleeding,bandaged) Rectal Exam: not examined Extremities: No clubbing, No cyanosis, No edema, Normal pulses, No tenderness/swelling Skin: Other (Gluteal redness) Neuro: Other (Cogwheeling, rigidity, pill rolling tremor bilaterally) Psych/Mental Status: Other (confused) Vitals Vitals Vital Signs Date Time Temp Pulse Resp B/P (MAP) Pulse Ox O2 Delivery O2 Flow Rate FiO2 09/09/21 03:40 97.8 91 20 139/100 (113) Room Air 98.0 97.8 09/09/21 03:24 99 Labs Labs Laboratory Tests Test 09/09/21 02:06 09/09/21 02:12 09/09/21 02:30 White Blood Count 9.2 x10^3/uL (4.0-11.0) Red Blood Count 3.17 x10^6/uL (4.30-5.70) Hemoglobin 9.6 g/dL (13.0-17.5) Hematocrit 29.5 % (39.0-53.0) Mean Corpuscular Volume 93 fL (79-100) Mean Corpuscular Hemoglobin 30 pg (25-35) Mean Corpuscular Hemoglobin Concent 32 g/dL (31-37) Red Cell Distribution Width 19.7 % (11.5-14.5) Platelet Count 353 x10^3/uL (140-400) Neutrophils (%) (Auto) 68 % (31-73) Lymphocytes (%) (Auto) 22 % (24-48) Monocytes (%) (Auto) 7 % (0-9) Eosinophils (%) (Auto) 2 % (0-3) Basophils (%) (Auto) 1 % (0-3) Neutrophils # (Auto) 6.3 x10^3/uL (1.8-7.7) Lymphocytes # (Auto) 2.0 x10^3/uL (1.0-4.8) Monocytes # (Auto) 0.7 x10^3/uL (0.0-1.1) Eosinophils # (Auto) 0.2 x10^3/uL (0.0-0.7) Basophils # (Auto) 0.1 x10^3/uL (0.0-0.2) Lactic Acid Level 1.1 mmol/L (0.4-2.0) SARS-CoV-2 Antigen (Rapid) Negative (NEGATIVE) Sodium Level 147 mmol/L (136-145) Potassium Level 3.6 mmol/L (3.5-5.1) Chloride Level 102 mmol/L (98-107) Carbon Dioxide Level 32 mmol/L (21-32) Anion Gap 13 (6-14) Blood Urea Nitrogen 17 mg/dL (8-26) Creatinine 1.2 mg/dL (0.7-1.3) Estimated GFR (Cockcroft-Gault) 73.5 BUN/Creatinine Ratio 14 (6-20) Glucose Level 78 mg/dL (70-99) Calcium Level 8.7 mg/dL (8.5-10.1) Total Bilirubin 0.2 mg/dL (0.2-1.0) Aspartate Amino Transf (AST/SGOT) 23 U/L (15-37) Alanine Aminotransferase (ALT/SGPT) 16 U/L (16-63) Alkaline Phosphatase 60 U/L (46-116) Total Protein 8.5 g/dL (6.4-8.2) Albumin 2.5 g/dL (3.4-5.0) Albumin/Globulin Ratio 0.4 (1.0-1.7) Valproic Acid (Depakene) Level 50 mcg/mL (50-100) Valproic Acid Last Dose Date [id number] Valproic Acid Last Dose Time 0800 Laboratory Tests Test 09/09/21 02:06 09/09/21 02:12 09/09/21 02:30 White Blood Count 9.2 x10^3/uL (4.0-11.0) Red Blood Count 3.17 x10^6/uL (4.30-5.70) Hemoglobin 9.6 g/dL (13.0-17.5) Hematocrit 29.5 % (39.0-53.0) Mean Corpuscular Volume 93 fL (79-100) Mean Corpuscular Hemoglobin 30 pg (25-35) Mean Corpuscular Hemoglobin Concent 32 g/dL (31-37) Red Cell Distribution Width 19.7 % (11.5-14.5) Platelet Count 353 x10^3/uL (140-400) Neutrophils (%) (Auto) 68 % (31-73) Lymphocytes (%) (Auto) 22 % (24-48) Monocytes (%) (Auto) 7 % (0-9) Eosinophils (%) (Auto) 2 % (0-3) Basophils (%) (Auto) 1 % (0-3) Neutrophils # (Auto) 6.3 x10^3/uL (1.8-7.7) Lymphocytes # (Auto) 2.0 x10^3/uL (1.0-4.8) Monocytes # (Auto) 0.7 x10^3/uL (0.0-1.1) Eosinophils # (Auto) 0.2 x10^3/uL (0.0-0.7) Basophils # (Auto) 0.1 x10^3/uL (0.0-0.2) Lactic Acid Level 1.1 mmol/L (0.4-2.0) SARS-CoV-2 Antigen (Rapid) Negative (NEGATIVE) Sodium Level 147 mmol/L (136-145) Potassium Level 3.6 mmol/L (3.5-5.1) Chloride Level 102 mmol/L (98-107) Carbon Dioxide Level 32 mmol/L (21-32) Anion Gap 13 (6-14) Blood Urea Nitrogen 17 mg/dL (8-26) Creatinine 1.2 mg/dL (0.7-1.3) Estimated GFR (Cockcroft-Gault) 73.5 BUN/Creatinine Ratio 14 (6-20) Glucose Level 78 mg/dL (70-99) Calcium Level 8.7 mg/dL (8.5-10.1) Total Bilirubin 0.2 mg/dL (0.2-1.0) Aspartate Amino Transf (AST/SGOT) 23 U/L (15-37) Alanine Aminotransferase (ALT/SGPT) 16 U/L (16-63) Alkaline Phosphatase 60 U/L (46-116) Total Protein 8.5 g/dL (6.4-8.2) Albumin 2.5 g/dL (3.4-5.0) Albumin/Globulin Ratio 0.4 (1.0-1.7) Valproic Acid (Depakene) Level 50 mcg/mL (50-100) Valproic Acid Last Dose Date Valproic Acid Last Dose Time 0800 VTE Prophylaxis Ordered VTE Prophylaxis Devices: No VTE Pharmacological Prophylaxi: Yes Assessment/Plan Assessment/Plan PEG tube dislodged - patient admits to removing it, but cannot articulate if there was intent. GI consulted for consideration of replacement Dysphagia - possibly secondary to drug induced parkinsons Tremors - will try benztropine given this may be drug induced dystonic reaction, though longer term drug induced parkinsons is likely the case and there are no well trialed treatments for this outside of supportive care. Will try to avoid dopaminergic antipsychotics unless necessary Anemia secondary to recent blood loss. No clear signs of loss now Severe protein calorie malnutrition - will start on peripheral nutrition pending repeat TIME STUDY OBSERVER evaluation and GI consultation for consideration of PEG replacement History of alcohol abuse History of schizophrenia - was on 800mg seroquel, depakote. Will favor depakote given above likely drug induced parkinsons diagnosis History of urinary retention with indwelling Terrazas catheter History of diastolic CHF with grade 1 diastolic dysfunction FEN - IVF PPX - lovenox CODE - DNR/DNI Dispo - inpatient for above Justifications for Admission Other Justification Upper GI bleed DANICA PHAM MD Sep 09, 2021 07:51
[2021-09-09] MEDS ORDERED: METOPROLOL IV PUSH 5 MG/5 ML VIAL. IVP SCH (08:00)
[2021-09-09] MEDS ORDERED: HALOPERIDOL LACTATE 5 MG/ML VIAL. IVP PRN (08:00)
[2021-09-09] MEDS ORDERED: VALPROIC ACID (AS SODIUM SALT) 500 MG in IV DEXTROSE 5% 50 ML IV SCH (09:00)
[2021-09-09] MEDS: MUPIROCIN 2 % OINTMENT 22GM TUBE. TP SCH ×2 (09:00→21:42)
[2021-09-09] MEDS ORDERED: BENZTROPINE MESYLATE 2 MG/2 ML VIAL. IM ONE (09:30)
[2021-09-09 10:55] VITALS: BP 144/83
--- NOTE | 2021-09-09 12:29 | PDOC ---
G I PROGRESS NOTE Reason for Follow-up Dislodged G tube Subjective No new complaints Physical Exam Lungs clear CV S1 S2 ABD +BAS, soft, G tube stoma closed Review of Relevant I have reviewed the following items any (where applicable) has been applied. Labs Laboratory Tests Test 09/09/21 02:06 09/09/21 02:12 09/09/21 02:30 White Blood Count 9.2 x10^3/uL (4.0-11.0) Red Blood Count 3.17 x10^6/uL (4.30-5.70) Hemoglobin 9.6 g/dL (13.0-17.5) Hematocrit 29.5 % (39.0-53.0) Mean Corpuscular Volume 93 fL (79-100) Mean Corpuscular Hemoglobin 30 pg (25-35) Mean Corpuscular Hemoglobin Concent 32 g/dL (31-37) Red Cell Distribution Width 19.7 % (11.5-14.5) Platelet Count 353 x10^3/uL (140-400) Neutrophils (%) (Auto) 68 % (31-73) Lymphocytes (%) (Auto) 22 % (24-48) Monocytes (%) (Auto) 7 % (0-9) Eosinophils (%) (Auto) 2 % (0-3) Basophils (%) (Auto) 1 % (0-3) Neutrophils # (Auto) 6.3 x10^3/uL (1.8-7.7) Lymphocytes # (Auto) 2.0 x10^3/uL (1.0-4.8) Monocytes # (Auto) 0.7 x10^3/uL (0.0-1.1) Eosinophils # (Auto) 0.2 x10^3/uL (0.0-0.7) Basophils # (Auto) 0.1 x10^3/uL (0.0-0.2) Lactic Acid Level 1.1 mmol/L (0.4-2.0) SARS-CoV-2 Antigen (Rapid) Negative (NEGATIVE) Sodium Level 147 mmol/L (136-145) Potassium Level 3.6 mmol/L (3.5-5.1) Chloride Level 102 mmol/L (98-107) Carbon Dioxide Level 32 mmol/L (21-32) Anion Gap 13 (6-14) Blood Urea Nitrogen 17 mg/dL (8-26) Creatinine 1.2 mg/dL (0.7-1.3) Estimated GFR (Cockcroft-Gault) 73.5 BUN/Creatinine Ratio 14 (6-20) Glucose Level 78 mg/dL (70-99) Calcium Level 8.7 mg/dL (8.5-10.1) Total Bilirubin 0.2 mg/dL (0.2-1.0) Aspartate Amino Transf (AST/SGOT) 23 U/L (15-37) Alanine Aminotransferase (ALT/SGPT) 16 U/L (16-63) Alkaline Phosphatase 60 U/L (46-116) Total Protein 8.5 g/dL (6.4-8.2) Albumin 2.5 g/dL (3.4-5.0) Albumin/Globulin Ratio 0.4 (1.0-1.7) Valproic Acid (Depakene) Level 50 mcg/mL (50-100) Valproic Acid Last Dose Date [id number] Valproic Acid Last Dose Time 0800 Laboratory Tests Test 09/09/21 02:06 09/09/21 02:12 09/09/21 02:30 White Blood Count 9.2 x10^3/uL (4.0-11.0) Red Blood Count 3.17 x10^6/uL (4.30-5.70) Hemoglobin 9.6 g/dL (13.0-17.5) Hematocrit 29.5 % (39.0-53.0) Mean Corpuscular Volume 93 fL (79-100) Mean Corpuscular Hemoglobin 30 pg (25-35) Mean Corpuscular Hemoglobin Concent 32 g/dL (31-37) Red Cell Distribution Width 19.7 % (11.5-14.5) Platelet Count 353 x10^3/uL (140-400) Neutrophils (%) (Auto) 68 % (31-73) Lymphocytes (%) (Auto) 22 % (24-48) Monocytes (%) (Auto) 7 % (0-9) Eosinophils (%) (Auto) 2 % (0-3) Basophils (%) (Auto) 1 % (0-3) Neutrophils # (Auto) 6.3 x10^3/uL (1.8-7.7) Lymphocytes # (Auto) 2.0 x10^3/uL (1.0-4.8) Monocytes # (Auto) 0.7 x10^3/uL (0.0-1.1) Eosinophils # (Auto) 0.2 x10^3/uL (0.0-0.7) Basophils # (Auto) 0.1 x10^3/uL (0.0-0.2) Lactic Acid Level 1.1 mmol/L (0.4-2.0) SARS-CoV-2 Antigen (Rapid) Negative (NEGATIVE) Sodium Level 147 mmol/L (136-145) Potassium Level 3.6 mmol/L (3.5-5.1) Chloride Level 102 mmol/L (98-107) Carbon Dioxide Level 32 mmol/L (21-32) Anion Gap 13 (6-14) Blood Urea Nitrogen 17 mg/dL (8-26) Creatinine 1.2 mg/dL (0.7-1.3) Estimated GFR (Cockcroft-Gault) 73.5 BUN/Creatinine Ratio 14 (6-20) Glucose Level 78 mg/dL (70-99) Calcium Level 8.7 mg/dL (8.5-10.1) Total Bilirubin 0.2 mg/dL (0.2-1.0) Aspartate Amino Transf (AST/SGOT) 23 U/L (15-37) Alanine Aminotransferase (ALT/SGPT) 16 U/L (16-63) Alkaline Phosphatase 60 U/L (46-116) Total Protein 8.5 g/dL (6.4-8.2) Albumin 2.5 g/dL (3.4-5.0) Albumin/Globulin Ratio 0.4 (1.0-1.7) Valproic Acid (Depakene) Level 50 mcg/mL (50-100) Valproic Acid Last Dose Date [id number] Valproic Acid Last Dose Time 0800 Medications Current Medications Ceftriaxone Sodium (Rocephin) 1 gm 1X ONCE IVP Last administered on 09/09/21at 02:21; Start 09/09/21 at 02:00; Stop 09/09/21 at 02:01; Status DC Sodium Chloride 1,000 ml @ 75 mls/hr 1X ONCE IV Last administered on 09/09/21at 02:21; Start 09/09/21 at 02:00; Stop 09/09/21 at 15:19 Mupirocin (Bactroban) 1 marco BID TP ; Start 09/09/21 at 09:00 Ondansetron HCl (Zofran) 4 mg PRN Q4HRS PRN IVP NAUSEA/VOMITING; Start 09/09/21 at 07:45 Olanzapine (ZyPREXA ZYDIS) 5 mg PRN BID PRN PO ANXIETY / AGITATION; Start 09/09/21 at 07:45 Hydralazine HCl (Apresoline Inj) 10 mg PRN Q4HRS PRN IVP ELEVATED BP, SEE COMMENTS; Start 09/09/21 at 07:45 Bisacodyl (Dulcolax Supp) 10 mg PRN DAILY PRN MS CONSTIPATION; Start 09/09/21 at 07:45 Acetaminophen (Tylenol Supp) 650 mg PRN Q6HRS PRN MS MILD PAIN / TEMP > 100.3'F ; Start 09/09/21 at 07:45 Dextrose/Lactated Ringer's 1,000 ml @ 75 mls/hr [id number] IV Last administered on 09/09/21at 09:22; Start 09/09/21 at 07:45; Stop 09/12/21 at 07:44 Pantoprazole Sodium (PROTONIX VIAL for IV PUSH) 40 mg DAILYAC IVP Last administered on 09/09/21at 09:21; Start 09/09/21 at 07:45 Haloperidol Lactate (Haldol Inj) 5 mg PRN Q6HRS PRN IVP AGITATION; Start 09/09/21 at 08:00 Metoprolol Tartrate (Lopressor Vial) 5 mg Q6HRS IVP Last administered on 09/09/21at 09:21; Start 09/09/21 at 08:00 Levetiracetam 100 ml @ 400 mls/hr Q12HR IV Last administered on 09/09/21at 10:44; Start 09/09/21 at 09:00 Valproic Acid 500 mg/Dextrose 55 ml @ 55 mls/hr Q12HR IV Last administered on 09/09/21at 09:24; Start 09/09/21 at 09:00 Benztropine Mesylate (Cogentin) 2 mg 1X ONCE IM Last administered on 09/09/21at 09:44; Start 09/09/21 at 09:30; Stop 09/09/21 at 09:31; Status DC Active Scripts Active Pantoprazole Sodium (Pantoprazole Sodium) 40 Mg Tablet.dr 40 Mg PO DAILYAC 30 Days Amlodipine Besylate 5 Mg Tablet 5 Mg PO DAILY 30 Days Metoprolol Tartrate 25 Mg Tablet 12.5 Mg PO BID 30 Days Atorvastatin Calcium 10 Mg Tablet 10 Mg PO QHS 30 Days Tylenol (Acetaminophen) 325 Mg Tablet 650 Mg PO PRN Q4HRS PRN 30 Days Reported Buspirone Hcl 5 Mg Tablet 7.5 Mg PO TID Vitals/I & O Vital Sign - Last 24 Hours 09/09/21 09/09/21 09/09/21 09/09/21 01:45 02:26 02:56 03:24 Temp 98.2 98.2 Pulse 77 88 72 78 Resp 16 16 16 16 B/P (MAP) 163/80 (107) 162/90 (114) 150/88 (108) 142/91 (108) Pulse Ox 98 97 98 99 O2 Delivery Room Air Room Air Room Air Room Air 09/09/21 09/09/21 09/09/21 09/09/21 03:40 07:00 09:21 10:55 Temp 97.8 98.1 98.0 97.8 98.1 98.0 Pulse 91 86 86 99 Resp 20 18 18 B/P (MAP) 139/100 (113) 152/98 (116) 152/98 144/83 (103) Pulse Ox 93 97 O2 Delivery Room Air Room Air Room Air O2 Flow Rate 98.0 Intake and Output 09/08/21 09/08/21 09/09/21 15:00 23:00 07:00 Intake Total 0 ml Output Total 300 ml Balance -300 ml Problem List Problems Medical Problems: (1) Normocytic anemia Status: Acute Assessment Oropharyngeal dysphagia- with non-compliant uncooperative patient. G tube replacement contra-indicated as patient will dislodge agina. Recommend oral feedings for pleasure and return to ECF as no code Justicifation of Admission Dx: Justifications for Admission: Justification of Admission Dx: N/A ANNETTE VILLALTA MD Sep 09, 2021 12:29
[2021-09-09 15:00] VITALS: BP 150/85
[2021-09-09] MEDS: METOPROLOL TART IMMED RELEASE 25 MG TABLET. PO SCH ×2 (15:43→21:38)
[2021-09-09] MEDS ORDERED: ONDANSETRON ODT 4 MG TAB.RAPDIS. PO PRN (17:45)
[2021-09-09 19:00] VITALS: BP 145/73
[2021-09-09] MEDS: levETIRAcetam 500 MG TABLET PO SCH (21:37)
[2021-09-09] MEDS: ACETAMINOPHEN 325 MG TABLET. PO PRN (21:37)
[2021-09-09] MEDS: DIVALPROEX EXTENDED RELEASE 500 MG TAB.ER.24H. PO SCH (21:38)
[2021-09-09] MEDS: FAMOTIDINE 20 MG TABLET. PO SCH (21:38)
[2021-09-09 22:45] VITALS: BP 149/72
[2021-09-10 02:44] VITALS: BP 136/92
[2021-09-10 07:00] VITALS: BP 153/95
[2021-09-10] MEDS: MUPIROCIN 2 % OINTMENT 22GM TUBE. TP SCH ×2 (09:00→21:09)
[2021-09-10] MEDS: FAMOTIDINE 20 MG TABLET. PO SCH ×2 (09:21→21:08)
[2021-09-10] MEDS: METOPROLOL TART IMMED RELEASE 25 MG TABLET. PO SCH ×2 (09:21→21:09)
[2021-09-10] MEDS: levETIRAcetam 500 MG TABLET PO SCH ×2 (09:21→21:08)
[2021-09-10 11:00] VITALS: BP 143/87
--- NOTE | 2021-09-10 11:33 | PDOC ---
[facility] PROGRESS NOTE Date of Service DOS: DATE: 09/10/21 TIME: 11:32 Chief Complaint Chief Complaint PEG tube dislodged - patient admits to removing it, but cannot articulate if there was intent. 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 Will try to avoid dopaminergic antipsychotics unless necessary Anemia secondary to recent blood loss. No clear signs of loss now Severe protein calorie malnutrition - will start on peripheral nutrition pending repeat SALES COACH evaluation and GI consultation for consideration of PEG replacement History of alcohol abuse History of schizophrenia - was on 800mg seroquel, depakote. 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 He was recently admitted 07/22/21-08/02/21 for GI bleed and was ultimately [facility]2021 IV TPN Keppra metoprolol Lasix Zyvox Zosyn and started on dialysis and prn BiPAP. Had G-tube placement 09/05/2021 and was [facility] back [facility] Returns to the ED overnight 09/09/2021 due to dislodged PEG tube Labs with WBC 9.2, Hb 9.6, platelets 353, NA 147, K3.6, BUN 17, CR 1.2, glucose 78, calcium 8.7, bilirubin 0.2, AST 23, ALT 16, alkaline phosphatase 60, albumin 2.5, lactic acid 1.1, rapid COVID-19 negative, valproic acid level 50. Seen bedside bilateral hand parkinsonian tremors and some cogwheeling upper and lower extremities. He does not have any complaints. Is not oriented to month 09/10: Worked with speech-language pathology and was given dysphagia diet with th in liquids. Needs a few assist due to his tremor. Tolerating diet well no aspiration signs. Vitals/I&O Vitals/I&O: Vital Signs Date Time Temp Pulse Resp B/P (MAP) Pulse Ox O2 Delivery O2 Flow Rate FiO2 09/10/21 09:21 78 153/95 09/10/21 08:00 Room Air 09/10/21 07:00 98.4 20 100 2.0 98.4 I & O 09/09/21 09/09/21 09/10/21 15:00 23:00 07:00 Intake Total 155 ml 20 ml Output Total 400 ml Balance 155 ml -380 ml Physical Exam General: Alert, Cooperative, No acute distress Lungs: Crackles Abdomen: Normal bowel sounds, Soft, No hepatosplenomegaly, Other (LUQ PEG site scan bleeding,bandaged) Extremities: No clubbing, No cyanosis, No edema, Normal pulses, No tenderness/swelling Skin: Other (Gluteal redness) Assessment and Plan Assessmemt and Plan Problems Medical Problems: (1) Normocytic anemia Status: Acute Comment Review of Relevant I have reviewed the following items any (where applicable) has been applied. Medications: Current Medications Medications (Trade) Dose Ordered Sig/Jeffrey Route PRN Reason Start Time Stop Time Status Last Admin Dose Admin Metoprolol Tartrate (Lopressor) 12.5 mg BID PO 09/09/21 15:30 09/10/21 09:21 Famotidine (Pepcid) 20 mg BID PO 09/09/21 21:00 09/10/21 09:21 Divalproex Sodium (Depakote Er) 500 mg QHS PO 09/09/21 21:00 09/09/21 21:38 Levetiracetam (Keppra) 500 mg BID PO 09/09/21 21:00 09/10/21 09:21 Acetaminophen (Tylenol) 650 mg PRN Q6HRS PRN PO MILD PAIN / TEMP > 100.3'F 09/09/21 17:45 09/09/21 21:37 Justifications for Admission Other Justification Upper GI bleed DANICA PHAM MD Sep 10, 2021 11:33
[2021-09-10 15:00] VITALS: BP_SYST 141; BP_SYST 144; BP_DIAS 62; BP_DIAS 78
[2021-09-10 19:00] VITALS: BP 122/58
[2021-09-10] MEDS: DIVALPROEX EXTENDED RELEASE 500 MG TAB.ER.24H. PO SCH (21:08)
[2021-09-10 22:43] VITALS: BP 142/80
[2021-09-11 03:08] VITALS: BP 146/78
[2021-09-11 06:58] LABS: HEMATOCRIT 25.7 % (39.0-53.0); HEMOGLOBIN 8.2 g/dL (13.0-17.5); RED BLOOD COUNT 2.75 x10^6/uL (4.30-5.70); RED CELL DISTRIBUTION WIDTH 17.8 % (11.5-14.5)
[2021-09-11 07:04] LABS: CALCIUM 8.5 mg/dL (8.5-10.1); CREATININE 1.3 mg/dL (0.7-1.3); POTASSIUM 3.3 mmol/L (3.5-5.1)
[2021-09-11 07:30] VITALS: BP 126/78
[2021-09-11] MEDS: levETIRAcetam 500 MG TABLET PO SCH ×2 (08:50→21:16)
[2021-09-11] MEDS: FAMOTIDINE 20 MG TABLET. PO SCH ×2 (08:51→21:16)
[2021-09-11] MEDS: METOPROLOL TART IMMED RELEASE 25 MG TABLET. PO SCH ×2 (08:57→21:17)
[2021-09-11] MEDS: MUPIROCIN 2 % OINTMENT 22GM TUBE. TP SCH ×2 (09:00→21:00)
[2021-09-11 11:00] VITALS: BP 159/47
--- NOTE | 2021-09-11 12:00 | PDOC ---
Date of Service: DATE: 09/11/21 TIME: 11:56 Subjective: Subjective: Says aleksey, says he ate an egg. Objective: Objective: D/w nurse - pt eating PO w/ assistance from staff. Vital Signs: Vital Signs Date Time Temp Pulse Resp B/P (MAP) Pulse Ox O2 Delivery O2 Flow Rate FiO2 09/11/21 08:57 77 126/78 09/11/21 08:00 Room Air 09/11/21 07:30 97.6 18 100 97.6 09/10/21 19:00 2.0 Labs: Laboratory Tests Test 09/11/21 06:20 White Blood Count 12.0 x10^3/uL Red Blood Count 2.75 x10^6/uL Hemoglobin 8.2 g/dL Hematocrit 25.7 % Mean Corpuscular Volume 93 fL Mean Corpuscular Hemoglobin 30 pg Mean Corpuscular Hemoglobin Concent 32 g/dL Red Cell Distribution Width 17.8 % Platelet Count 283 x10^3/uL Sodium Level 137 mmol/L Potassium Level 3.3 mmol/L Chloride Level 98 mmol/L Carbon Dioxide Level 29 mmol/L Anion Gap 10 Blood Urea Nitrogen 20 mg/dL Creatinine 1.3 mg/dL Estimated GFR (Cockcroft-Gault) 67.0 Glucose Level 79 mg/dL Calcium Level 8.5 mg/dL BLOOD CULTURE Preliminary NO GROWTH AFTER 2 DAYS Imaging: GAMBLING CASHIER Bedside Swallow Eval: Pt demo's moderate oral dysphagia w/ prolonged mastication and oral A-P transport w/ regular solids. Overall, swallow appears improved since previous PMC admit Jul.22-2021. Risk for aspiration w/ recommended diet appears low. See full report in Interventions. Requested [facility] records related to swallowing and PEG tube placement to r/o hx of silent aspiration. Recommendations: Initiate Dysphagia II diet ([facility] soft/minced & moist) w/ thin/regular liquids. Requires total feeding asst. Will continue GAMBLING CASHIER f/u 1-2 sessions to ensure safety of PO intake. PE: GEN: NAD LUNGS: CTAB HEART: RRR ABD: soft, non-tender, gauze over PEG site w/ dime-size amount of dried brown material NEURO/PSYCH: awake and alert, probably some confused A/P: PEG tube dislodgement - pt pulled out/replacement not recommended/cleared for PO diet per GAMBLING CASHIER Leukocytosis, ACD/SCARLETT, hypokalemia COVID negative -- Taking PO w/ assistance. DC per primary. Justicifation of Admission Dx: Justifications for Admission: Justification of Admission Dx: N/A MENDEZ ESTES Sep 11, 2021 12:00
[2021-09-11] MEDS ORDERED: DIVA500T4 PO (12:54)
[2021-09-11] MEDS ORDERED: LEVE500T56 PO (12:54)
--- NOTE | 2021-09-11 12:55 | SNU/HH DC ---
DISCHARGE ORDERS DISCHARGE INFORMATION: DISCHARGE DATE: Sep 11, 2021 FINAL DIAGNOSIS Problems Medical Problems: (1) Normocytic anemia Status: Acute CONDITION ON DISCHARGE: Stable CODE STATUS: Code Status: DNR/DNI NURSING HOME: SNF STAY <30 DAYS: Yes POST DISCHARGE ORDERS: ACTIVITY ORDERS: Resume previous activity WEIGHT BEARING STATUS: Full weight bearing, As tolerated, Non weight bearing DIET AFTER DISCHARGE: Cardiac WOUND/INCISION CARE: Ice to area for comfort, No wound care needed CHECKS AFTER DISCHARGE: CHECKS AFTER DISCHARGE: Check blood press - daily, Check blood sugar, ac/hs, Check your Temp as needed FOLLOW-UP: LAB ORDERS FOR FOLLOW-UP: CBC, CMP within 2 weeks of discharge TREATMENT/EQUIPMENT ORDERS: ADAPTIVE EQUIPMENT NEEDED: None RESPIRATORY EQUIPMENT NEEDED: Oxygen, BiPAP Physical Therapy For: Evalulation/Treatment Occupational Therapy For: Evaluation/Treatment Speech Language Pathology For: Evaluation/Treatment DISCHARGE MEDICATIONS: Home Meds Active Scripts Levetiracetam (KEPPRA) 500 Mg Tablet, 500 MG PO BID for seizure for 30 Days, #60 TAB Prov:DANICA AVINA MD 09/11/21 Divalproex Sodium (DEPAKOTE ER) 500 Mg Tab.er.24h, 500 MG PO QHS for seizure for 30 Days, #30 TAB.SR Prov:DANICA AVINA MD 09/11/21 Pantoprazole Sodium (PANTOPRAZOLE SODIUM ) 40 Mg Tablet.dr, 40 MG PO DAILYAC for GERD for 30 Days, #30 TAB.SR Prov:ITZEL MORALES MD 02/02/21 Amlodipine Besylate (AMLODIPINE BESYLATE) 5 Mg Tablet, 5 MG PO DAILY for BLOOD PRESSURE for 30 Days, #30 TAB Prov:ITZEL MORALES MD 02/02/21 Metoprolol Tartrate (METOPROLOL TARTRATE) 25 Mg Tablet, 12.5 MG PO BID for BLOOD PRESSURE for 30 Days, #30 TAB Prov:ITZEL MORALES MD 02/02/21 Atorvastatin Calcium (ATORVASTATIN CALCIUM) 10 Mg Tablet, 10 MG PO QHS for ROHIT STEROL for 30 Days, #30 TAB Prov:ITZEL MORALES MD 02/02/21 Acetaminophen (TYLENOL) 325 Mg Tablet, 650 MG PO PRN Q4HRS PRN for TEMP OVER 100.4F OR MILD PAIN for 30 Days, #60 TAB Prov:ITZEL MORALES MD 08/03/20 Reported Medications Buspirone Hcl (BUSPIRONE HCL) 5 Mg Tablet, 7.5 MG PO TID for , TAB 09/04/21 DANICA AVINA MD Sep 11, 2021 12:55
--- NOTE | 2021-09-11 12:57 | PDOC3 ---
[facility]-Discharge Summary Date of Admission: Date of Admission: Sep 09, 2021 Date of Discharge: Date of Discharge: Sep 11, 2021 Admission Diagnosis: Problems: (1) Dislodged gastrostomy tube Consults: Consults: GI Procedures: Procedures: Chief Complaint Chief Complaint PEG tube dislodged - patient admits to removing it, but cannot articulate if there was intent. 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 Will try to avoid dopaminergic antipsychotics unless necessary Anemia secondary to recent blood loss. No clear signs of loss now Severe protein calorie malnutrition - will start on peripheral nutrition pending repeat PAYROLL AND BENEFITS SPECIALIST evaluation and GI consultation for consideration of PEG replacement History of alcohol abuse History of schizophrenia - was on 800mg seroquel, depakote. Will favor depakote given above likely drug induced parkinsons diagnosis History of urinary retention with indwelling Terrazas catheter History of diastolic CHF with grade 1 diastolic dysfunction FEN -dysphagia diet with thin liquids PPX - lovenox CODE - DNR/DNI Dispo - inpatient for above History of Present Illness History of Present Illness Mr Gustafson is a 65yo male PMHx schizophrenia, h/o heavy ETOH abuse, depression with anxiety, HTN, constipation who presented from his [facility] SNF for dislodged PEG tube. He was recently admitted 07/22/21-08/02/21 for GI bleed and was ultimately discharged to [facility] on 08/02/2021 IV TPN Keppra metoprolol Lasix Zyvox Zosyn and started on dialysis and prn BiPAP. Had G-tube placement 09/05/2021 and was discharged back to intermodal customer service care at [facility] Returns to the ED overnight 09/09/2021 due to dislodged PEG tube Labs with WBC 9.2, Hb 9.6, platelets 353, NA 147, K3.6, BUN 17, CR 1.2, glucose 78, calcium 8.7, bilirubin 0.2, AST 23, ALT 16, alkaline phosphatase 60, albumin 2.5, lactic acid 1.1, rapid COVID-19 negative, valproic acid level 50. Seen bedside bilateral hand parkinsonian tremors and some cogwheeling upper and lower extremities. He does not have any complaints. Is not oriented to month 09/10: Worked with speech-language pathology and was given dysphagia diet with thin liquids. Needs a few assist due to his tremor. Tolerating diet well no aspiration signs. 09/11 Patient evaluated examined at bedside. Resting in bed. Doing with p.o. intake no need to replace PEG tube at this point. Discharge back to facility today. Greater than 30 minutes spent on discharge. Disposition: Disposition/Orders: D/C to Another Facility Activity: Activity: Resume previous activity Medications: Home Meds Active Scripts Levetiracetam (KEPPRA) 500 Mg Tablet, 500 MG PO BID for seizure for 30 Days, #60 TAB Prov:DANICA AVINA MD 09/11/21 Divalproex Sodium (DEPAKOTE ER) 500 Mg Tab.er.24h, 500 MG PO QHS for seizure for 30 Days, #30 TAB.SR Prov:DANICA AVINA MD 09/11/21 Pantoprazole Sodium (PANTOPRAZOLE SODIUM ) 40 Mg Tablet.dr, 40 MG PO DAILYAC for GERD for 30 Days, #30 TAB.SR Prov:ITZEL MORALES MD 02/02/21 Amlodipine Besylate (AMLODIPINE BESYLATE) 5 Mg Tablet, 5 MG PO DAILY for BLOOD PRESSURE for 30 Days, #30 TAB Prov:ITZEL MORALES MD 02/02/21 Metoprolol Tartrate (METOPROLOL TARTRATE) 25 Mg Tablet, 12.5 MG PO BID for BLOOD PRESSURE for 30 Days, #30 TAB Prov:ITZEL MORALES MD 02/02/21 Atorvastatin Calcium (ATORVASTATIN CALCIUM) 10 Mg Tablet, 10 MG PO QHS for CHOLESTEROL for 30 Days, #30 TAB Prov:ITZEL MORALES MD 02/02/21 Acetaminophen (TYLENOL) 325 Mg Tablet, 650 MG PO PRN Q4HRS PRN for TEMP OVER 100.4F OR MILD PAIN for 30 Days, #60 TAB Prov:ITZEL MORALES MD 08/03/20 Reported Medications Buspirone Hcl (BUSPIRONE HCL) 5 Mg Tablet, 7.5 MG PO TID for , TAB 09/04/21 Scheduled Amlodipine Besylate (Amlodipine Besylate), 5 MG PO DAILY Atorvastatin Calcium (Atorvastatin Calcium), 10 MG PO QHS Buspirone Hcl (Buspirone Hcl), 7.5 MG PO TID, (Reported) Divalproex Sodium (Depakote Er), 500 MG PO QHS Levetiracetam (Keppra), 500 MG PO BID Metoprolol Tartrate (Metoprolol Tartrate), 12.5 MG PO BID Pantoprazole Sodium (Pantoprazole Sodium ), 40 MG PO DAILYAC Scheduled PRN Acetaminophen (Tylenol), 650 MG PO PRN Q4HRS PRN for TEMP OVER 100.4F OR MILD PAIN Justicifation of Admission Dx: Justifications for Admission: Justification of Admission Dx: N/A DANICA AVINA MD Sep 11, 2021 12:57
[2021-09-11] MEDS: ASCORBIC ACID 500 MG TABLET PO SCH (13:00)
[2021-09-11] MEDS: MULTIVITAMIN with MINERAL TABLET. PO SCH (13:00)
[2021-09-11] MEDS: ACETAMINOPHEN 325 MG TABLET. PO PRN (14:53)
--- NOTE | 2021-09-11 15:03 | NUR ---
09/11/21 changed stat lock on catheter
[2021-09-11 15:24] VITALS: BP 152/88
--- NOTE | 2021-09-11 18:32 | NUR ---
Wound Care: Unable to see patient today for wound care, we will attempt to see patient tomorrow.
[2021-09-11 19:56] VITALS: BP 168/97
[2021-09-11] MEDS: DIVALPROEX EXTENDED RELEASE 500 MG TAB.ER.24H. PO SCH (21:16)
[2021-09-11 23:58] VITALS: BP 166/82
[2021-09-12 03:46] VITALS: BP 152/77
[2021-09-12 07:00] VITALS: BP 156/87
[2021-09-12] MEDS: METOPROLOL TART IMMED RELEASE 25 MG TABLET. PO SCH ×2 (08:44→21:01)
[2021-09-12] MEDS: MULTIVITAMIN with MINERAL TABLET. PO SCH (08:45)
[2021-09-12] MEDS: ASCORBIC ACID 500 MG TABLET PO SCH (08:45)
[2021-09-12] MEDS: levETIRAcetam 500 MG TABLET PO SCH ×2 (08:45→21:00)
[2021-09-12] MEDS: FAMOTIDINE 20 MG TABLET. PO SCH ×2 (08:45→21:00)
[2021-09-12] MEDS: MUPIROCIN 2 % OINTMENT 22GM TUBE. TP SCH ×2 (08:48→21:03)
[2021-09-12] MEDS ORDERED: POTASSIUM BICARB 20 MEQ EFFERVESCENT TABLET. PO ONE (09:30)
--- NOTE | 2021-09-12 10:44 | PDOC ---
Date of Service: DATE: 09/12/21 TIME: 10:43 Objective: Objective: No GI concerns per nurse, awaiting DC, eats w/ assistance. Vital Signs: Vital Signs Date Time Temp Pulse Resp B/P (MAP) Pulse Ox O2 Delivery O2 Flow Rate FiO2 09/12/21 08:44 84 156/87 09/12/21 08:00 Room Air 2.0 09/12/21 07:00 98.4 20 100 98.4 Labs: BLOOD CULTURE Preliminary NO GROWTH AFTER 3 DAYS PE: GEN: NAD ABD: non-distended NEURO/PSYCH: sleeping, not awakened A/P: PEG tube dislodgement - poor candidate for replacement + now tolerating PO -- Awaiting DC. Justicifation of Admission Dx: Justifications for Admission: Justification of Admission Dx: N/A MENDEZ ESTES Sep 12, 2021 10:44
[2021-09-12 11:00] VITALS: BP 164/92
--- NOTE | 2021-09-12 12:11 | PDOC ---
[facility] PROGRESS NOTE Date of Service DOS: DATE: 09/12/21 TIME: 12:10 Chief Complaint Chief Complaint PEG tube dislodged - patient admits to removing it, but cannot articulate if there was intent. 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 Will try to avoid dopaminergic antipsychotics unless necessary Anemia secondary to recent blood loss. No clear signs of loss now Severe protein calorie malnutrition - will start on peripheral nutrition pending repeat J2EE DEVELOPER evaluation and GI consultation for consideration of PEG replacement History of alcohol abuse History of schizophrenia - was on 800mg seroquel, depakote. 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 He was recently admitted 07/22/21-08/02/21 for GI bleed and was [facility]21 IV TPN Keppra metoprolol Lasix Zyvox Zosyn and started on dialysis and prn BiPAP. Had G-tube placement 09/05/2021 and was discharged back to [facility] care at [facility] Returns to the ED overnight 09/09/2021 due to dislodged PEG tube Labs with WBC 9.2, Hb 9.6, platelets 353, NA 147, K3.6, BUN 17, CR 1.2, glucose 78, calcium 8.7, bilirubin 0.2, AST 23, ALT 16, alkaline phosphatase 60, albumin 2.5, lactic acid 1.1, rapid COVID-19 negative, valproic acid level 50. Seen bedside bilateral hand parkinsonian tremors and some cogwheeling upper and lower extremities. He does not have any complaints. Is not oriented to month 09/10: Worked with speech-language pathology and was given dysphagia diet with th in liquids. Needs a few assist due to his tremor. Tolerating diet well no aspiration signs. 09/12 Evaluated examined at bedside. Waiting for transportation to facility. Doing well with diet. DC whenever transportation here Vitals/I&O Vitals/I&O: Vital Signs Date Time Temp Pulse Resp B/P (MAP) Pulse Ox O2 Delivery O2 Flow Rate FiO2 09/12/21 11:00 98.4 77 20 164/92 (116) 98 Room Air 98.4 09/12/21 08:00 2.0 I & O 09/11/21 09/11/21 09/12/21 15:00 23:00 07:00 Intake Total 660 ml 750 ml Output Total 950 ml 1150 ml Balance -290 ml -400 ml Physical Exam General: Alert, Cooperative, No acute distress Lungs: Crackles Abdomen: Normal bowel sounds, Soft, No hepatosplenomegaly, Other (LUQ PEG site scan bleeding,bandaged) Extremities: No clubbing, No cyanosis, No edema, Normal pulses, No tenderness/swelling Skin: Other (Gluteal redness) Assessment and Plan Assessmemt and Plan Problems Medical Problems: (1) Normocytic anemia Status: Acute Comment Review of Relevant I have reviewed the following items any (where applicable) has been applied. Medications: Current Medications Medications (Trade) Dose Ordered Sig/Jeffrey Route PRN Reason Start Time Stop Time Status Last Admin Dose Admin Ascorbic Acid (Vitamin C) 500 mg DAILY PO 09/11/21 13:00 09/12/21 08:45 Multivitamins (Thera M Plus) 1 tab DAILY PO 09/11/21 13:00 09/12/21 08:45 Potassium Bicarbonate (Potassium Effervescent Tablet) 40 meq 1X ONCE PO 09/12/21 09:30 09/12/21 09:31 DC 09/12/21 09:43 Justifications for Admission Other Justification Upper GI bleed DANICA AVINA MD Sep 12, 2021 12:11
[2021-09-12 14:38] VITALS: BP 151/86
[2021-09-12 19:00] VITALS: BP 158/87
[2021-09-12] MEDS: DIVALPROEX EXTENDED RELEASE 500 MG TAB.ER.24H. PO SCH (21:00)
[2021-09-13 07:00] VITALS: BP 158/101
[2021-09-13] MEDS: levETIRAcetam 500 MG TABLET PO SCH ×2 (08:28→21:07)
[2021-09-13] MEDS: ASCORBIC ACID 500 MG TABLET PO SCH (08:28)
[2021-09-13] MEDS: METOPROLOL TART IMMED RELEASE 25 MG TABLET. PO SCH ×2 (08:29→21:10)
[2021-09-13] MEDS: MULTIVITAMIN with MINERAL TABLET. PO SCH (08:29)
[2021-09-13] MEDS: MUPIROCIN 2 % OINTMENT 22GM TUBE. TP SCH ×2 (08:30→21:07)
[2021-09-13] MEDS: FAMOTIDINE 20 MG TABLET. PO SCH ×2 (08:30→21:07)
--- NOTE | 2021-09-13 10:01 | PDOC ---
G I PROGRESS NOTE Subjective Sleeping. Did not awaken. Objective No reports of any new GI issues. Physical Exam No PE. Review of Relevant I have reviewed the following items any (where applicable) has been applied. Labs Microbiology 09/09/21 Blood Culture - Preliminary, Resulted NO GROWTH AFTER 4 DAYS Vitals/I & O Vital Sign - Last 24 Hours 09/12/21 09/12/21 09/12/21 09/12/21 11:00 14:38 19:00 20:00 Temp 98.4 98.6 98.2 98.4 98.6 98.2 Pulse 77 83 85 Resp 20 20 20 B/P (MAP) 164/92 (116) 151/86 (107) 158/87 (110) Pulse Ox 98 96 96 O2 Delivery Room Air Room Air Room Air Room Air 09/12/21 09/13/21 09/13/21 09/13/21 21:01 07:00 08:00 08:29 Temp 98.5 98.5 Pulse 89 89 89 Resp 20 B/P (MAP) 163/87 158/101 (120) 158/101 Pulse Ox 98 O2 Delivery Room Air Room Air O2 Flow Rate 2.0 Intake and Output 09/12/21 09/12/21 09/13/21 15:00 23:00 07:00 Intake Total 240 ml 180 ml 120 ml Output Total 600 ml 600 ml 1050 ml Balance -360 ml -420 ml -930 ml Problem List Problems Medical Problems: (1) Normocytic anemia Status: Acute Assessment OP dysphagia, improved. Dislodged G-tube, clinically no leak and eating. Plan of Care Note Continue as now. Await final disposition. Justicifation of Admission Dx: Justifications for Admission: Justification of Admission Dx: N/A EDMUND LAZARO MD Sep 13, 2021 10:01
[2021-09-13 11:00] VITALS: BP 147/87
--- NOTE | 2021-09-13 11:46 | PDOC ---
[facility] PROGRESS NOTE Date of Service DOS: DATE: 09/13/21 TIME: 11:45 Chief Complaint Chief Complaint PEG tube dislodged - patient admits to removing it, but cannot articulate if there was intent. 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 Will try to avoid dopaminergic antipsychotics unless necessary Anemia secondary to recent blood loss. No clear signs of loss now Severe protein calorie malnutrition - will start on peripheral nutrition pending repeat WIRE FRAME DIPPER evaluation and GI consultation for consideration of PEG replacement History of alcohol abuse History of schizophrenia - was on 800mg seroquel, depakote. 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 He was recently admitted 07/22/21-08/02/21 for GI bleed and was ultimately [facility]2021 IV TPN Keppra metoprolol Lasix Zyvox Zosyn and started on dialysis and prn BiPAP. Had G-tube placement 09/05/2021 and was discharged back to snf care at [facility] Returns to the ED overnight 09/09/2021 due to dislodged PEG tube Labs with WBC 9.2, Hb 9.6, platelets 353, NA 147, K3.6, BUN 17, CR 1.2, glucose 78, calcium 8.7, bilirubin 0.2, AST 23, ALT 16, alkaline phosphatase 60, albumin 2.5, lactic acid 1.1, rapid COVID-19 negative, valproic acid level 50. Seen bedside bilateral hand parkinsonian tremors and some cogwheeling upper and lower extremities. He does not have any complaints. Is not oriented to month 09/10: Worked with speech-language pathology and was given dysphagia diet with th in liquids. Needs a few assist due to his tremor. Tolerating diet well no aspiration signs. 09/12 Evaluated examined at bedside. Waiting for transportation to facility. Doing well with diet. DC whenever transportation here 09/13 Evaluated examined at bedside. Discharge to facility once accepted back. Vitals/I&O Vitals/I&O: Vital Signs Date Time Temp Pulse Resp B/P (MAP) Pulse Ox O2 Delivery O2 Flow Rate FiO2 09/13/21 11:00 98.6 83 20 147/87 (107) 99 Room Air 98.6 09/13/21 08:00 2.0 I & O 09/12/21 09/12/21 09/13/21 14:59 22:59 06:59 Intake Total 240 ml 180 ml 120 ml Output Total 600 ml 600 ml 1050 ml Balance -360 ml -420 ml -930 ml Physical Exam General: Alert, Cooperative, No acute distress Lungs: Crackles Abdomen: Normal bowel sounds, Soft, No hepatosplenomegaly, Other (LUQ PEG site scan bleeding,bandaged) Extremities: No clubbing, No cyanosis, No edema, Normal pulses, No tenderness/swelling Skin: Other (Gluteal redness) Assessment and Plan Assessmemt and Plan Problems Medical Problems: (1) Normocytic anemia Status: Acute Comment Review of Relevant I have reviewed the following items any (where applicable) has been applied. Justifications for Admission Other Justification Upper GI bleed DANIAC AVINA MD Sep 13, 2021 11:46
--- NOTE | 2021-09-13 13:46 | NUR ---
REYNALDO following for placement issues. Pt was a long-term resident at [facility]. when he recently came to [facility] in 2021. Pt was discharged from [facility] to [facility]. During his time at [facility], [place] had given his bed away because he was out of their facility for longer than 21 days according to their client services administrator. While he was in [facility] knowing they were not going to be taking him back, had his records transferred and him accepted at one of their sister facilities [facility]. Pt was discharged from [facility] to [facility] 09/08/2021. Pt was then subsequently re-admitted back at [facility] 09/09/2021 for peg tube dislodgement and currently remains at [facility]. Pt is now medically stable and ready for discharge back to [facility]. However, I spoke with Gillian, client services administrator for [facility], and was told they are not going to be taking him back as well. Per our conversation, they too are now full and have no beds available. Further, they were not planning to keep the pt long-term anyway and had been exploring alternative placement. None of this information was relayed to [facility] upon his admission. Gillian gave me contact information for their regional barrel lathe operator, Daya - [phone], who is apparently looking for alternative placement. REYNALDO spoke with Daya who reported having 2 potential facilities willing to "seriously" look at accepting. I verbalized that the pt is stable from a medical standpoint and is ready for discharge. That he is not appropriate to be in the hospital at this time and that he needed to be transferred back to one of their facilities to figure out the placement issues. She reported both facilities were not willing to accept pt back at this time. SW awaiting further information from Daya as to the acceptance determination from the other 2 facilities. 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
--- NOTE | 2021-09-13 14:15 | NUR ---
SW received phone call from Sara, product coordinator at [facility]. Records faxed per her request for possible admission.
[2021-09-13 14:40] VITALS: BP 154/78
--- NOTE | 2021-09-13 15:59 | NUR ---
Wound Care Wound care consult for coccyx wound. 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 Measured, assessed and redressed wound. Cleanse wound, apply hydrofera blue and foam dressing, change every 3 days. Pt educated on PU prevention and WC POC. He will need reinforcement of teaching due to mental status. WC will continue to follow for possible changes. Pt left on back per his request with heels floated.
[2021-09-13 19:00] VITALS: BP 184/90
[2021-09-13] MEDS: DIVALPROEX EXTENDED RELEASE 500 MG TAB.ER.24H. PO SCH (21:07)
[2021-09-13 23:00] VITALS: BP 180/90
[2021-09-14 03:33] VITALS: BP 156/88
[2021-09-14 07:00] VITALS: BP 152/86
[2021-09-14] MEDS: ASCORBIC ACID 500 MG TABLET PO SCH (09:13)
[2021-09-14] MEDS: levETIRAcetam 500 MG TABLET PO SCH ×2 (09:14→20:30)
[2021-09-14] MEDS: MULTIVITAMIN with MINERAL TABLET. PO SCH (09:14)
[2021-09-14] MEDS: MUPIROCIN 2 % OINTMENT 22GM TUBE. TP SCH ×2 (09:14→20:37)
[2021-09-14] MEDS: METOPROLOL TART IMMED RELEASE 25 MG TABLET. PO SCH ×2 (09:14→20:34)
[2021-09-14] MEDS: FAMOTIDINE 20 MG TABLET. PO SCH ×2 (09:16→20:30)
--- NOTE | 2021-09-14 09:58 | PDOC ---
Date of Service: DATE: 09/14/21 TIME: 09:57 Subjective: Subjective: Wants me to pull the covers up to his chin. Objective: Vital Signs: Vital Signs Date Time Temp Pulse Resp B/P (MAP) Pulse Ox O2 Delivery O2 Flow Rate FiO2 09/14/21 09:14 84 152/86 09/14/21 07:55 Room Air 09/14/21 07:00 98.1 20 90 98.1 09/13/21 08:00 2.0 Labs: BLOOD CULTURE Final NO GROWTH AFTER 5 DAYS PE: GEN: NAD LUNGS: CTAB HEART: RRR ABD: NABS, S/ND/NT NEURO/PSYCH: A & O A/P: PEG tube dislodgement but now able to safely take PO diet -- Awaiting DC. Justicifation of Admission Dx: Justifications for Admission: Justification of Admission Dx: N/A MENDEZ ESTES Sep 14, 2021 09:58
--- NOTE | 2021-09-14 11:49 | PDOC ---
[facility] [facility] PROGRESS NOTE Date of Service DOS: DATE: 09/14/21 TIME: 11:49 Chief Complaint Chief Complaint PEG tube dislodged - patient admits to removing it, but cannot articulate if there was intent. 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 Will try to avoid dopaminergic antipsychotics unless necessary Anemia secondary to recent blood loss. No clear signs of loss now Severe protein calorie malnutrition - will start on peripheral nutrition pending repeat PROJECT ENGINEERING MANAGER evaluation and GI consultation for consideration of PEG replacement History of alcohol abuse History of schizophrenia - was on 800mg seroquel, depakote. 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 He was recently admitted 07/22/21-08/02/21 for GI bleed and [facility]21 IV TPN Keppra metoprolol Lasix Zyvox Zosyn and started on dialysis and prn BiPAP. Had G-tube placement 09/05/2021 and was discharged back to custodial care at [facility] Returns to the ED overnight 09/09/2021 due to dislodged PEG tube Labs with WBC 9.2, Hb 9.6, platelets 353, NA 147, K3.6, BUN 17, CR 1.2, glucose 78, calcium 8.7, bilirubin 0.2, AST 23, ALT 16, alkaline phosphatase 60, albumin 2.5, lactic acid 1.1, rapid COVID-19 negative, valproic acid level 50. Seen bedside bilateral hand parkinsonian tremors and some cogwheeling upper and lower extremities. He does not have any complaints. Is not oriented to month 09/10: Worked with speech-language pathology and was given dysphagia diet with th in liquids. Needs a few assist due to his tremor. Tolerating diet well no aspiration signs. 09/12 Evaluated examined at bedside. Waiting for transportation to facility. Doing well with diet. DC whenever transportation here 09/13 Evaluated examined at bedside. Discharge to facility once accepted back. 09/14 Evaluate examined at bedside doing well p.o. intake. Many social complications. Discharge whenever accepted to facility. Vitals/I&O Vitals/I&O: Vital Signs Date Time Temp Pulse Resp B/P (MAP) Pulse Ox O2 Delivery O2 Flow Rate FiO2 09/14/21 09:14 84 152/86 09/14/21 07:55 Room Air 09/14/21 07:00 98.1 20 90 98.1 09/13/21 08:00 2.0 I & O 09/13/21 09/13/21 09/14/21 15:00 23:00 07:00 Intake Total 240 ml 720 ml Output Total 450 ml 725 ml Balance -210 ml -725 ml 720 ml Physical Exam General: Alert, Cooperative, No acute distress Lungs: Crackles Abdomen: Normal bowel sounds, Soft, No hepatosplenomegaly, Other (LUQ PEG site scan bleeding,bandaged) Extremities: No clubbing, No cyanosis, No edema, Normal pulses, No tenderness/swelling Skin: Other (Gluteal redness) Assessment and Plan Assessmemt and Plan Problems Medical Problems: (1) Normocytic anemia Status: Acute Comment Review of Relevant I have reviewed the following items any (where applicable) has been applied. Justifications for Admission Other Justification Upper GI bleed DANICA AVINA MD Sep 14, 2021 11:49
--- NOTE | 2021-09-14 15:52 | NUR ---
REYNALDO continues to follow. Spoke with Sara at [facility]. They are fairly sure they are going to accept however she needs to get the final ok from her property administrator. Awaiting final decision.
[2021-09-14 19:00] VITALS: BP 163/97
[2021-09-14] MEDS: DIVALPROEX EXTENDED RELEASE 500 MG TAB.ER.24H. PO SCH (20:30)
[2021-09-14 23:00] VITALS: BP 157/81
[2021-09-15 03:00] VITALS: BP 173/101
[2021-09-15 03:54] VITALS: BP 162/83
[2021-09-15 07:00] VITALS: BP 161/99
--- NOTE | 2021-09-15 09:57 | SNU/HH DC ---
DISCHARGE ORDERS DISCHARGE INFORMATION: DISCHARGE DATE: Sep 15, 2021 FINAL DIAGNOSIS Problems Medical Problems: (1) Normocytic anemia Status: Acute CONDITION ON DISCHARGE: Stable CODE STATUS: Code Status: DNR/DNI MCC: SNF STAY <30 DAYS: Yes POST DISCHARGE ORDERS: ACTIVITY ORDERS: Resume previous activity WEIGHT BEARING STATUS: Full weight bearing, As tolerated DIET AFTER DISCHARGE: Cardiac WOUND/INCISION CARE: Ice to area for comfort, Keep wound/cast CDI, No wound care needed CHECKS AFTER DISCHARGE: CHECKS AFTER DISCHARGE: Check blood press - daily, Check blood sugar, ac/hs, Check your Temp as needed FOLLOW-UP: LAB ORDERS FOR FOLLOW-UP: CBC, CMP within 2 weeks of discharge TREATMENT/EQUIPMENT ORDERS: ADAPTIVE EQUIPMENT NEEDED: None RESPIRATORY EQUIPMENT NEEDED: Oxygen, BiPAP Physical Therapy For: Evalulation/Treatment Occupational Therapy For: Evaluation/Treatment Speech Language Pathology For: Evaluation/Treatment DISCHARGE MEDICATIONS: Home Meds Active Scripts Levetiracetam (KEPPRA) 500 Mg Tablet, 500 MG PO BID for seizure for 30 Days, #60 TAB Prov:DANICA AVINA MD 09/11/21 Divalproex Sodium (DEPAKOTE ER) 500 Mg Tab.er.24h, 500 MG PO QHS for seizure for 30 Days, #30 TAB.SR Prov:DANICA AVINA MD 09/11/21 Pantoprazole Sodium (PANTOPRAZOLE SODIUM ) 40 Mg Tablet.dr, 40 MG PO DAILYAC for GERD for 30 Days, #30 TAB.SR Prov:ITZEL MORALES MD 02/02/21 Amlodipine Besylate (AMLODIPINE BESYLATE) 5 Mg Tablet, 5 MG PO DAILY for BLOOD PRESSURE for 30 Days, #30 TAB Prov:ITZEL MORALES MD 02/02/21 Metoprolol Tartrate (METOPROLOL TARTRATE) 25 Mg Tablet, 12.5 MG PO BID for BLOOD PRESSURE for 30 Days, #30 TAB Prov:ITZEL MORALES MD 02/02/21 Atorvastatin Calcium (ATORVASTATIN CALCIUM) 10 Mg Tablet, 10 MG PO QHS for CHOL ESTEROL for 30 Days, #30 TAB Prov:ITZEL MORALES MD 02/02/21 Acetaminophen (TYLENOL) 325 Mg Tablet, 650 MG PO PRN Q4HRS PRN for TEMP OVER 100.4F OR MILD PAIN for 30 Days, #60 TAB Prov:ITZEL MORALES MD 08/03/20 Reported Medications Buspirone Hcl (BUSPIRONE HCL) 5 Mg Tablet, 7.5 MG PO TID for , TAB 09/04/21 DANICA AVINA MD Sep 15, 2021 09:56
--- NOTE | 2021-09-15 09:57 | PDOC ---
[employer] [facility] PROGRESS NOTE Date of Service DOS: DATE: 09/15/21 TIME: 09:57 Chief Complaint Chief Complaint PEG tube dislodged - patient admits to removing it, but cannot articulate if there was intent. 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 Will try to avoid dopaminergic antipsychotics unless necessary Anemia secondary to recent blood loss. No clear signs of loss now Severe protein calorie malnutrition - will start on peripheral nutrition pending repeat BLOCKER AND POLISHER evaluation and GI consultation for consideration of PEG replacement History of alcohol abuse History of schizophrenia - was on 800mg seroquel, depakote. 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 He was recently admitted 07/22/21-08/02/21 for GI bleed and [facility] IV TPN Keppra metoprolol Lasix Zyvox Zosyn and started on dialysis and prn BiPAP. Had G-tube placement 09/05/2021 and was discharged back to care home care at [facility] Returns to the ED overnight 09/09/2021 due to dislodged PEG tube Labs with WBC 9.2, Hb 9.6, platelets 353, NA 147, K3.6, BUN 17, CR 1.2, glucose 78, calcium 8.7, bilirubin 0.2, AST 23, ALT 16, alkaline phosphatase 60, albumin 2.5, lactic acid 1.1, rapid COVID-19 negative, valproic acid level 50. Seen bedside bilateral hand parkinsonian tremors and some cogwheeling upper and lower extremities. He does not have any complaints. Is not oriented to month 09/10: Worked with speech-language pathology and was given dysphagia diet with th in liquids. Needs a few assist due to his tremor. Tolerating diet well no aspiration signs. 09/12 Evaluated examined at bedside. Waiting for transportation to facility. Doing well with diet. DC whenever transportation here 09/13 Evaluated examined at bedside. Discharge to facility once accepted back. 09/14 Evaluate examined at bedside doing well p.o. intake. Many social complications. Discharge whenever accepted to facility. 09/15 Patient excepted outside facility. Discharge today. See previous discharge summary for details. Vitals/I&O Vitals/I&O: Vital Signs Date Time Temp Pulse Resp B/P (MAP) Pulse Ox O2 Delivery O2 Flow Rate FiO2 09/15/21 07:00 98.1 83 20 161/99 (119) 96 Room Air 98.1 I & O 09/14/21 09/14/21 09/15/21 15:00 23:00 07:00 Intake Total 265 ml 1480 ml Output Total 650 ml 400 ml 1450 ml Balance -385 ml 1080 ml -1450 ml Physical Exam General: Alert, Cooperative, No acute distress Lungs: Crackles Abdomen: Normal bowel sounds, Soft, No hepatosplenomegaly, Other (LUQ PEG site scan bleeding,bandaged) Extremities: No clubbing, No cyanosis, No edema, Normal pulses, No tenderness/swelling Skin: Other (Gluteal redness) Assessment and Plan Assessmemt and Plan Problems Medical Problems: (1) Normocytic anemia Status: Acute Comment Review of Relevant I have reviewed the following items any (where applicable) has been applied. Justifications for Admission Other Justification Upper GI bleed DANICA AVINA MD Sep 15, 2021 09:57
[2021-09-15] MEDS: METOPROLOL TART IMMED RELEASE 25 MG TABLET. PO SCH (10:05)
[2021-09-15] MEDS: MUPIROCIN 2 % OINTMENT 22GM TUBE. TP SCH (10:05)
[2021-09-15] MEDS: FAMOTIDINE 20 MG TABLET. PO SCH (10:05)
[2021-09-15] MEDS: levETIRAcetam 500 MG TABLET PO SCH (10:05)
[2021-09-15] MEDS: MULTIVITAMIN with MINERAL TABLET. PO SCH (10:05)
[2021-09-15] MEDS: ASCORBIC ACID 500 MG TABLET PO SCH (10:05)
--- NOTE | 2021-09-15 10:20 | PDOC ---
Date of Service: DATE: 09/15/21 TIME: 10:18 Subjective: Subjective: Staff present to clean up after breakfast. He says breakfast was good. Objective: Vital Signs: Vital Signs Date Time Temp Pulse Resp B/P (MAP) Pulse Ox O2 Delivery O2 Flow Rate FiO2 09/15/21 10:05 83 161/99 09/15/21 07:00 98.1 20 96 Room Air 98.1 PE: GEN: NAD LUNGS: CTAB HEART: RRR ABD: S/ND/NT NEURO/PSYCH: awake and alert, friendly A/P: PEG tube dislodgement - not replaced as cleared by CURING OVEN ATTENDANT to eat/tolerating diet -- Awaiting DC. Justicifation of Admission Dx: Justifications for Admission: Justification of Admission Dx: N/A MENDEZ ESTES Sep 15, 2021 10:20
[2021-09-15 11:00] VITALS: BP 161/93
[2021-09-15 14:35] VITALS: BP 168/97
--- NOTE | 2021-09-15 15:25 | NUR ---
PATIENT LEAVES THE UNIT PER CART, EMOTIONAL SUPPORT GIVEN, THIS JAVA TECH LEAD ATTEMPTED TO CALL REPORT TO RECEIVING FACILITY X2 BUT NO ANSWER, SALINE LOCK REMOVED FROM LEFT UPPER ARM BUT PRETTY CATHETER MAINTAINED DUE TO COCCYX WOUND.
== END 2021-09-15 15:25 | DRG 393 ==
LOC: ER 01:45 → 5 SOUTH 01:59
PROVIDERS: ADMIT Internal Medicine; ATTEND Internal Medicine
DX: K94.23 Gastrostomy malfunction (principal); E43 Unspecified severe protein-calorie malnutrition; I50.32 Chronic diastolic (congestive) heart failure; G21.19 Other drug induced secondary parkinsonism; Z20.822 Contact with and (suspected) exposure to COVID-19; D64.9 Anemia, unspecified; F20.9 Schizophrenia, unspecified; I11.0 Hypertensive heart disease with heart failure; R13.12 Dysphagia, oropharyngeal phase; Z66 Do not resuscitate; F32.A Depression, unspecified; F41.9 Anxiety disorder, unspecified; K21.9 Gastro-esophageal reflux disease without esophagitis; E87.6 Hypokalemia; D50.9 Iron deficiency anemia, unspecified; D63.8 Anemia in other chronic diseases classified elsewhere; T50.905A Adverse effect of unspecified drugs, medicaments and biological substances, initial encounter; Z86.73 Personal history of transient ischemic attack (TIA), and cerebral infarction without residual deficits; Z91.19 Patient's noncompliance with other medical treatment and regimen; Y92.89 Other specified places as the place of occurrence of the external cause; Z68.21 Body mass index [BMI] 21.0-21.9, adult
CPT/HCPCS: 36415; 43762; 80048; 80053; 80164; 83605; 85025; 85027; 87040; 87426; 96361; 96374; C9113; J0515; J0696; J3490; J7030; J7060; J7121; U0003; 92526-GN; 92610-GN; 99285-25; G0378